=== PATIENT | female | born 2000 | race African-American/Black ===

== ENCOUNTER 2022-07-31 20:40 | Emergency (ER) | payer BC, OTHER, SELFPAY ==
[2022-07-31 20:45] VITALS: BP 123/74; PULSE 97; RESP 18; TEMP 36.9; O2SAT 100; BMI 30.2
--- NOTE | 2022-07-31 20:56 | US_ITS ---
The [address] [address] Patient Name: JAYY NGUYEN MRN: [id number] date: 2000 Sex: F Assigned Patient Location: ED.MAIN Current Patient Location: Accession/Order Number: [id number] Exam Date: 07/31/2022 21:30 Report Date: 07/31/2022 23:01 At the request of: TWYLA GAYTAN Procedure: US OB transvaginal EXAM: US OB transvaginal HISTORY: Vaginal bleeding in COMPARISON: None. TECHNIQUE: Transvaginal ultrasound of the pelvis was performed using Duplex Doppler. FINDINGS: Ultrasound images demonstrate a gravid uterus with a gestational sac with a mean sac diameter of 2.1 cm, indicative of a six-week four-day gestation. Within the gestational sac is a well-defined embryo with a crown rump length measuring 1.2 cm indicative of a 7 week 3 day gestation. Embryonic cardiac activity is noted at a rate of 141 beats per minute. The placenta is not yet visible due to the early gestational age. The amniotic fluid is unable to be assessed due to the early gestational age. The cervix is closed measuring up to 3.5 cm in length. The right ovary measures up to 3.2 x 1.9 x 1.9 cm, and the left ovary measures up to 3.8 x 2.1 x 2.1 cm. There is a complex cystic area within the left ovary most likely representing a corpus luteal cyst of . Blood flow is noted in both ovaries. No free fluid is noted within the cul-de-sac. IMPRESSION: 1. Single live intrauterine gestation at approximately 7 weeks 0 days with a heart rate 141 bpm. Electronically authenticated by: Vernon SILVER Date: 07/31/2022 23:01
--- NOTE | 2022-07-31 21:03 | ED.PREGNANC1 ---
HPI - General Stated complaint: ISSUES LESS THAN 20-WEEKS Time Seen by Provider: 07/31/22 20:53 Source: patient Mode of arrival: walk-in Limitations: no limitations History of Present Illness HPI Narrative: patient is a 22-year-old female A1 who presents to the emergency department for the evaluation of vaginal bleeding in . She states she is approximately nine weeks . She was seen at the [place] emergency department two weeks ago for back pain and was found on a transvaginal ultrasound to have a healthy intrauterine gestation. She states this afternoon she had blood in her underwear and blood with wiping, she was concerned that she may be having a miscarriage that she has a history of complicated and previous still . She has had cramping for several weeks that is not worse or different today. She has not had any fevers or vomiting. She has her 1st appointment with her new OB this week. Related Data Previous Rx's Medication Instructions Recorded metoclopramide HCl 10 mg tablet 10 mg PO Q6H PRN nausea and 07/31/22 (Reglan) vomiting #12 tabs Allergies Allergy/AdvReac Type Severity Reaction Status Date / Time No Known Drug Allergies Allergy Verified 07/31/22 20:45 Review of Systems ROS Constitutional Denies: fever or chills Ears, nose, mouth, and throat Denies: throat pain Respiratory Denies: shortness of breath or cough Gastrointestinal Reports: abdominal pain; Denies: nausea or vomiting Genitourinary Denies: painful urination Integumentary/Breast Denies: rash Neurological Denies: headache PFSH PFSH Social History Smoking status: Current every day smoker Exam Narrative Exam Narrative: Gen.: Awake, alert, in no distress Head: Normocephalic, atraumatic ENT: Moist mucous membranes Respiratory: No respiratory distress Gastrointestinal: Abdomen is soft, nondistended and nontender to palpation Extremities: Moves extremities equally, no injuries noted Psych: Normal mood and affect Neuro: No focal neuro deficit Skin: Warm, dry, intact Constitutional Vital Signs - 24 hr 07/31/22 20:45 Temperature 98.4 F Pulse Rate [Monitor] 97 H Respiratory Rate 18 Blood Pressure [Right Arm] 123/74 H Pulse Oximetry 100 Oxygen Delivery Method Room Air Course Vital Signs Vital signs: Vital Signs Temperature 98.4 F 07/31/22 20:45 Pulse Rate 97 H 07/31/22 20:45 Respiratory Rate 18 07/31/22 20:45 Blood Pressure 123/74 H 07/31/22 20:45 Pulse Oximetry 100 07/31/22 20:45 Oxygen Delivery Method Room Air 07/31/22 20:45 Temperature 98.4 F 07/31/22 20:45 Pulse Rate 97 H 07/31/22 20:45 Respiratory Rate 18 07/31/22 20:45 Blood Pressure 123/74 H 07/31/22 20:45 Pulse Oximetry 100 07/31/22 20:45 Oxygen Delivery Method Room Air 07/31/22 20:45 MDM - OB/Uterine Contractions MDM Narrative Medical decision making narrative: urine specimen, quantitative hCG and ABO/Rh were obtained. Ultrasound is pending at this time. Patient declined Tylenol. She has stable vital signs. No severe bleeding at this time. ultrasound with a single live intrauterine gestation at seven weeks, heart rate 141. Patient with O positive blood type. She is encouraged to follow pelvic rest, follow-up with [facility] [employer] [facility] as scheduled and return to the emergency department if symptoms change or worsen Medical Records Attestation: I reviewed the patient's medical records. Lab Data Attestation: I reviewed the patient's lab results. Labs: Lab Results 07/31/22 07/31/22 07/31/22 Range/Units 19:00 20:56 21:10 HCG, Quant 13191 mIU/mL Urine Color Lt. yellow (YELLOW) Urine Clarity Clear (CLEAR) Urine pH 5.5 (5.0-9.0) Ur Specific [place] 1.025 (1.005-1.025) Urine Protein Negative (NEG/TRACE) mg/dL Urine Glucose (UA) >=1000 A (NEGATIVE) mg/dL Urine Ketones Negative (NEGATIVE) mg/dL Urine Occult Blood Large A (NEGATIVE) Urine Nitrite Negative (NEGATIVE) Urine Bilirubin Negative (NEGATIVE) Urine Urobilinogen 0.2 (0.2-1.0) EU/dL Ur Leukocyte Esterase Negative (NEGATIVE) Urine RBC (0-2) #/HPF Urine WBC (NONE SEEN) #/HPF Ur Squamous Epith Cells (NONE/RARE) #/LPF Urine Crystals (None Seen) #/HPF Urine Bacteria (NONE SEEN) #/HPF Urine Casts (NONE SEEN) #/LPF Urine Mucus (NONE SEEN) Ur Culture Indicated? Blood Type O Positive 07/31/22 Range/Units 21:21 HCG, Quant mIU/mL Urine Color (YELLOW) Urine Clarity (CLEAR) Urine pH (5.0-9.0) Ur Specific [place] (1.005-1.025) Urine Protein (NEG/TRACE) mg/dL Urine Glucose (UA) (NEGATIVE) mg/dL Urine Ketones (NEGATIVE) mg/dL Urine Occult Blood (NEGATIVE) Urine Nitrite (NEGATIVE) Urine Bilirubin (NEGATIVE) Urine Urobilinogen (0.2-1.0) EU/dL Ur Leukocyte Esterase (NEGATIVE) Urine RBC 0-2 (0-2) #/HPF Urine WBC 0-2 A (NONE SEEN) #/HPF Ur Squamous Epith Cells Few A (NONE/RARE) #/LPF Urine Crystals None seen (None Seen) #/HPF Urine Bacteria None seen (NONE SEEN) #/HPF Urine Casts None seen (NONE SEEN) #/LPF Urine Mucus None seen (NONE SEEN) Ur Culture Indicated? No Blood Type Imaging Data US OB <14 weeks: Attestation: I have reviewed the pertinent imaging results. Discharge Plan Discharge Clinical Impression: Vaginal bleeding affecting early , Miscarriage, threatened, early Patient Disposition: Home, Self-Care Time of Disposition Decision: 22:10 Condition: Good Prescriptions / Home Meds: New metoclopramide HCl [Reglan] 10 mg tablet 10 mg PO Q6H PRN (Reason: nausea and vomiting) Qty: 12 0RF Instructions: Threatened Miscarriage (ED) Additional Instructions: Follow up with Dr. Childs as scheduled Stand Alone Forms: Portal Instructions Referrals: [facility] [Primary Care Provider] - 1 week Discharge Date/Time: 07/31/22 22:27
[2022-07-31 21:21] LABS: Bilirubin Urine NEGATIVE (NEGATIVE); Blood Urine LARGE (NEGATIVE); Clarity Urine CLEAR (CLEAR); Color Urine LT. YELLOW (YELLOW); Glucose Urine UA >=1000 mg/dL (NEGATIVE); Ketones Urine NEGATIVE (NEGATIVE); Leukocyte Esterase Urine NEGATIVE (NEGATIVE); Nitrite Urine NEGATIVE (NEGATIVE); Protein Urine NEGATIVE (NEG/TRACE); Specific Gravity Urine 1.025 (1.005-1.025); Urine Microscopic Indicated YES; Urobilinogen Urine 0.2 EU/dL (0.2-1.0); pH Urine 5.5 (5.0-9.0)
[2022-07-31 21:29] LABS: Bacteria Urine NONE SEEN #/HPF (NONE SEEN); Cast Seen? NONE SEEN #/LPF (NONE SEEN); Crystals Seen? None Seen #/HPF (None Seen); Mucus Urine NONE SEEN (NONE SEEN); RBC Urine 0-2 #/HPF (0-2); Squamous Epithelial Cell Urine FEW #/LPF (NONE/RARE); Urine Culture Indicated NO; WBC Urine 0-2 #/HPF (NONE SEEN)
== END 2022-07-31 22:27 | disposition home or self-care (01) ==
PROVIDERS: Physician Assistant; Emergency Provider Internal Medicine
DX: O20.0 Threatened abortion (principal); Z3A.09 9 weeks gestation of pregnancy; O99.331 Smoking (tobacco) complicating pregnancy, first trimester; F17.210 Nicotine dependence, cigarettes, uncomplicated
CPT/HCPCS: 36415; 76817; 81003; 81015; 84702; 86900; 86901; 99285

== ENCOUNTER 2022-08-03 13:04 | Outpatient (OUT) | payer BC, OTHER, SELFPAY ==
--- NOTE | 2022-08-03 13:05 | US_ITS ---
[address] [address] Patient Name: JAYY NGUYEN MRN: [id number] date: 2000 Sex: F Assigned Patient Location: US Current Patient Location: US Accession/Order Number: [id number] Exam Date: 08/03/2022 13:05 Report Date: 08/03/2022 16:49 At the request of: LINDA ALDRIDGE Procedure: US OB transvaginal EXAMINATION: US OB transvaginal HISTORY: MISSED PERIOD COMPARISON: 07/31/2022 FINDINGS: Amezcua intrauterine gestation Gestational sac: 2.26 cm, 6 weeks 6 days CRL: 1.49 cm, 7 weeks 6 days Yolk sac: 4.4 mm Cardiac activity: 159 bpm The uterus is normal in size, contour and echotexture, retroverted, retroflexed The right ovary is normal measuring 3.0 x 1.4 x 1.6 cm. The left ovary is normal measuring 2.4 x 1.4 x 1.7 cm Cervix: Closed, 3.6 cm Clinical age: 8 weeks 5 days Clinical JULIANO: 03/10/2023 Ultrasound age: 7 weeks 6 days Ultrasound JULIANO: 03/16/2023 IMPRESSION: Viable amezcua intrauterine gestation measuring 7 weeks 6 days Electronically authenticated by: SOPHIE DUBOIS Date: 08/03/2022 16:49
== END 2022-08-03 13:05 | disposition home or self-care (01) ==
LOC: US 13:04
PROVIDERS: Visit Provider Obstetrics & Gynecology
DX: O26.91 Pregnancy related conditions, unspecified, first trimester (principal); Z3A.01 Less than 8 weeks gestation of pregnancy
CPT/HCPCS: 76817

== ENCOUNTER 2022-08-19 09:39 | Outpatient (OUT) | payer BC, OTHER, SELFPAY ==
[2022-08-19 10:15] LABS: BOX Test Sent Out y
[2022-08-19 10:16] LABS: Basophils Absolute Auto 0.1 10^3/uL (0.0-0.1); Basophils Percent Auto 0.4 % (0.2-2.0); Eosinophils Absolute Auto 0.2 10^3/uL (0.0-0.7); Eosinophils Percent Auto 1.6 % (0.9-7.0); Hematocrit 32.3 % (36.0-48.0); Hemoglobin 12.1 g/dL (12.0-16.0); Immature Granulocytes Abs Auto 0.04 10^3/uL (0.00-0.03); Immature Granulocytes Pct Auto 0.3 % (0.0-0.5); Lymphocytes Absolute Auto 2.2 10^3/uL (1.2-3.8); Lymphocytes Percent Auto 18.9 % (20.5-60.0); Mean Corpuscular HGB Conc 37.5 g/dL (29.9-35.2); Mean Corpuscular Hemoglobin 28.6 pg (26.7-34.0); Mean Corpuscular Volume 76.4 fL (81.0-99.0); Mean Platelet Volume 11.2 fL (9.5-13.5); Monocytes Absolute Auto 0.7 10^3/uL (0.3-0.8); Monocytes Percent Auto 5.9 % (1.7-12.0); Neutrophils Absolute Auto 8.4 10^3/uL (1.4-6.5); Neutrophils Percent Auto 72.9 % (43.0-75.0); Platelet Count 269 10^3/uL (150-450); Red Blood Count 4.23 10^6/uL (4.20-5.40); Red Cell Distribution Width 13.1 % (11.0-15.0); White Blood Count 11.5 10^3/uL (4.0-11.0)
[2022-08-19 10:32] LABS: Estimated Average Glucose 192 mg/dL; Glycohemoglobin A1C 8.3 % (4.5-6.2)
[2022-08-19 10:43] LABS: Thyroid Stimulating Hormone 0.513 uIU/mL (0.358-3.740)
[2022-08-20 08:08] LABS: Rubella Antibodies, IgG 7.95 index (Immune >0.99)
[2022-08-20 09:07] LABS: HBsAg Screen Negative (Negative); HCV Ab Non Reactive (Non Reactive); HIV Ab/p24 Ag Screen Non Reactive (Non Reactive)
[2022-08-20 12:07] LABS: Rapid Plasma Reagin, Quant Non Reactive (NonRea<1:1)
== END 2022-08-19 09:40 | disposition home or self-care (01) ==
PROVIDERS: Visit Provider Obstetrics & Gynecology
DX: N91.2 Amenorrhea, unspecified (principal)
CPT/HCPCS: 36415; 83036; 84443; 85025; 86592; 86706; 86762; 86803; 86850; 86900; 86901; 87086; 87389

== ENCOUNTER 2022-09-20 20:56 | Outpatient (REF) | payer BC, OTHER, SELFPAY ==
[2022-09-26 16:13] LABS: Age Gdln ACOG Testing Note (.); IGP, rfx Aptima HPV ASCU Note (.)
== END 2022-09-20 20:57 | disposition home or self-care (01) ==
LOC: LAB 20:56
PROVIDERS: Visit Provider Obstetrics & Gynecology
DX: Z01.419 Encounter for gynecological examination (general) (routine) without abnormal findings (principal)
CPT/HCPCS: G0145

== ENCOUNTER 2023-01-05 07:08 | Outpatient (OUT) | payer BC, OTHER, SELFPAY ==
[2023-01-05 11:13] VITALS: BP 111/67; PULSE 93
== END 2023-01-05 11:40 | disposition home or self-care (01) ==
LOC: FBCO 07:20 → FBC 11:10
PROVIDERS: Visit Provider Obstetrics & Gynecology
DX: O24.019 Pre-existing type 1 diabetes mellitus, in pregnancy, unspecified trimester (principal); Z3A.00 Weeks of gestation of pregnancy not specified
CPT/HCPCS: 59025

== ENCOUNTER 2023-01-12 07:15 | Outpatient (OUT) | payer BC, OTHER, SELFPAY ==
[2023-01-12 11:32] VITALS: BP 128/60; PULSE 91
--- NOTE | 2023-01-12 11:45 | PC.NURSE ---
Addendum entered by Carolynn Luu 01/12/23 11:47: Type 2 Diabetes affecting . Pt seeing MFM. Original Note: History of stillborn at 37 weeks.
== END 2023-01-12 12:06 | disposition home or self-care (01) ==
LOC: FBCO 07:20 → FBC 11:29
PROVIDERS: Visit Provider Obstetrics & Gynecology
DX: O24.019 Pre-existing type 1 diabetes mellitus, in pregnancy, unspecified trimester (principal); Z3A.00 Weeks of gestation of pregnancy not specified
CPT/HCPCS: 59025

== ENCOUNTER 2023-01-19 07:03 | Outpatient (OUT) | payer BC, OTHER, SELFPAY ==
[2023-01-19 11:23] VITALS: BP 127/63; PULSE 105
== END 2023-01-19 11:56 | disposition home or self-care (01) ==
LOC: FBCO 07:03 → FBC 11:21
PROVIDERS: Visit Provider Obstetrics & Gynecology
DX: O24.019 Pre-existing type 1 diabetes mellitus, in pregnancy, unspecified trimester (principal); Z3A.00 Weeks of gestation of pregnancy not specified
CPT/HCPCS: 59025

== ENCOUNTER 2023-01-23 07:48 | Outpatient (OUT) | payer BC, OTHER, SELFPAY ==
[2023-01-23 13:17] VITALS: BP 151/70; PULSE 89
--- NOTE | 2023-01-23 13:24 | US_ITS ---
[address] [address] Patient Name: JAYY NGUYEN MRN: [id number] date: 2000 Sex: F Assigned Patient Location: [facility] Current Patient Location: Accession/Order Number: [id number] Exam Date: 01/23/2023 13:29 Report Date: 01/23/2023 14:31 At the request of: LNIDA ALDRIDGE Procedure: US OB BPP w non-stress EXAMINATION: US OB BPP w non-stress HISTORY: GDM insulin dependent COMPARISON: No relevant comparison available. TECHNIQUE: Ultrasound biophysical profile was performed in the radiology department. non-reactive stress testing was performed by nursing staff in the birthing center. FINDINGS: BREATHING MOVEMENTS: 2.0 GROSS BODY MOVEMENTS: 2.0 TONE: 2.0 QUALITATIVE AMNIOTIC FLUID VOLUME: 2.0 PRESENTATION: CEPHALIC HEART RATE: 139.9 bpm H.B./min AMNIOTIC FLUID VOLUME: 10.9 cm cm GESTATIONAL AGE: 32 weeks 4 days CONCLUSION: Total biophysical profile score: 8.0 Electronically authenticated by: SOPHIE DUBOIS Date: 01/23/2023 14:31
[2023-01-23 13:55] VITALS: BP 134/73; PULSE 81
[2023-01-23 14:20] VITALS: BP 125/68; PULSE 83
== END 2023-01-23 14:29 ==
LOC: US 07:48 → FBC 13:16
PROVIDERS: Visit Provider Obstetrics & Gynecology
DX: Z34.93 Encounter for supervision of normal pregnancy, unspecified, third trimester (principal); E10.69 Type 1 diabetes mellitus with other specified complication; Z3A.32 32 weeks gestation of pregnancy
CPT/HCPCS: 76818

== ENCOUNTER 2023-01-31 11:43 | Outpatient (OUT) | payer BC, OTHER, SELFPAY ==
--- NOTE | 2023-01-31 | US_ITS ---
[address] [address] Patient Name: JAYY NGUYEN MRN: [id number] date: 2000 Sex: F Assigned Patient Location: US Current Patient Location: Accession/Order Number: [id number] Exam Date: 01/31/2023 11:40 Report Date: 01/31/2023 21:43 At the request of: LINDA ALDRIDGE Procedure: US OB BPP w non-stress EXAMINATION: US OB BPP w non-stress HISTORY: DIABETES MELLITUS E10.69 COMPARISON: Ultrasound OB biophysical 01/23/2023 TECHNIQUE: Ultrasound biophysical profile was performed in the radiology department. BREATHING MOVEMENTS: 2.0 GROSS BODY MOVEMENTS: 2.0 TONE: 2.0 QUALITATIVE AMNIOTIC FLUID VOLUME: 2.0 PRESENTATION: CEPHALIC HEART RATE: 135.7 bpm bpm. AMNIOTIC FLUID VOLUME: 9.4 cm GESTATIONAL AGE: 33 weeks 5 days CONCLUSION: Total biophysical profile score 8.0. Electronically authenticated by: TEMITOPE HERNANDEZ Date: 01/31/2023 21:43
[2023-01-31 11:59] VITALS: RESP 18
[2023-01-31 12:00] VITALS: BP 118/61; PULSE 85
[2023-01-31 12:01] VITALS: TEMP 35.8; TEMP 35.9
== END 2023-01-31 12:40 | disposition home or self-care (01) ==
LOC: US 11:44 → FBC 11:44
PROVIDERS: Visit Provider Obstetrics & Gynecology
DX: Z34.93 Encounter for supervision of normal pregnancy, unspecified, third trimester (principal); E10.69 Type 1 diabetes mellitus with other specified complication; Z3A.33 33 weeks gestation of pregnancy
CPT/HCPCS: 76818

== ENCOUNTER 2023-02-13 11:15 | Outpatient (OUT) | payer BC, OTHER, SELFPAY ==
--- OUTSIDE RECORDS SUMMARY | 2023-02-06 07:28 | XMS_ITS | CCD ---
Author Name Unknown Address [address] [place] [address] Organization [facility] Care Team Providers Care Network Security Administrator Name Role Phone DR TAMI LAVAREZ Admitting Unavailable ANTONIO, DR GARRETT Attending Unavailable MISC, DR FIELD Primary Care Unavailable ANTONIO, DR GARRETT Consulting Unavailable None, Physician Primary Care Provider MD Derek Baum Admit Provider [phone] MD Derek Baum Attending Provider AMANDA Buck Other Provider Unavailab MD Good [place] Other Provider None Primary Care Unavailable Good [place] Consulting Unavailable Derek Baum Admitting Unavailable Derek Baum Attending Unavailable Tee Buck Consulting Unavailable Services, [facility] Primary Care Provider LINDA ALDRIDGE Attending Unavailable CAITLIN BHATIA Attending Unavailable LINDA ALDRIDGE Attending Unavailable CAITLIN BHATIA Attending Unavailable QUINTON ARITA Attending Unavailable LINDA ALDRIDGE Referring Unavailable SERVICES, [facility] Care Unava ilable SOPHIE HUDSON Admitting Unavailable SOPHIE HUDSON Attending Unavailable SERVICES, [facility] Care Unava ilable CHARO DANIELLE Consulting Unavailable RO TABARES Attending Unavailable RO TABARES Referring Unavailable SERVICES, [facility] Unava ilable LINDA ALDRIDGE Referring Unavailable SERVICES, [facility] Care Unava ilable NGUYEN TILLEY Attending Unavailable LINDA ALDRIDGE Referring Unavailable SERVICES, [facility] Primary Care Unava ilable Medications Current Medications Medication Drug Class(es) Dates Sig (Normalized) Sig (Original) amoxicillin 875 mg / clavulanate 125 mg oral tablet (2 sources) Penicillin-class Antibacterial Start: 02-01-2022 take 1 tablet by mouth twice daily Amoxicillin-Pot Clavulanate Active 1 TAB PO Twice Daily 20 February 01, 2022 12:00am aspirin 81 mg chewable tablet (1 source) Platelet Aggregation Inhibitor, Nonsteroidal Anti-inflammatory Drug Start: 11-03-2022 End: 06-11-2023 aspirin 81 mg chewable tablet Indications: with 21 completed weeks gestation , Type 1 diabetes mellitus in , second trimester , History of delivery affecting Chew 1 tablet (81 mg total) and swallow in the morning for 220 days. 30 tablet 5 11/03/2022 06/11/2023 Active blood-glucose meter (ONETOUCH VERIO REFLECT METER) misc (1 source) Start: 08-30-2022 blood-glucose meter (ONETOUCH VERIO REFLECT METER) misc 1 Device by miscellaneous route in the morning. 1 each 1 08/30/2022 Active Blood-Glucose Sensor (Dexcom G6 Sensor) Device (2 sources) Start: 01-31-2022 Blood-Glucose Sensor (Dexcom G6 Sensor) Device Active EACH OK January 31, 2022 12:00am blood-glucose sensor (DEXCOM G7 SENSOR) device (1 source) Start: 05-31-2022 blood-glucose sensor (DEXCOM G7 SENSOR) device Change sensor every 10 days 3 each 11 05/31/2022 Active Blood-Glucose Transmitter (Dexcom G6 Transmitter) Device (2 sources) Start: 01-31-2022 Blood-Glucose Transmitter (Dexcom G6 Transmitter) Device Active EACH OK January 31, 2022 12:00am doxylamine succinate 25 mg oral tablet (1 source) Start: 09-27-2022 take 1 tablet by mouth once daily as needed for sleep doxylamine (UNISOM) 25 mg tablet Take 1 tablet (25 mg total) by mouth nightly as needed for sleep. 30 tablet 12 09/27/2022 Active glucagon (rdna) 1 mg injection (1 source) Antihypoglycemic Agent Start: 08-30-2022 glucagon HCL (GLUCAGON, HCL, EMERGENCY KIT) 1 mg recon soln Inject 1 mg as directed as needed (severe hypoglycemia or seizure). 2 each 1 08/30/2022 Active sensor 3 ml insulin glargine 100 unt/ml pen injector (1 source) Insulin Analog Start: 01-08-2023 insulin glargine (LANTUS SOLOSTAR U-100 INSULIN) 100 unit/mL (3 mL) insulin pen 27 units s/q am and 20 units s/q bedtime. 2 units to prime. 15 mL 5 01/08/2023 Active insulin lispro 100 unt/ml injectable solution (2 sources) Insulin Analog Start: 02-01-2022 Insulin Lispro (Humalog U-100 Insulin) 100 unit/mL Solution Active 0 UNITS SC As Directed February 01, 2022 12:00am Uses Humalog in Omnipod pump as directed w/ carb counting. insulin lispro (HumaLOG) 100 unit/mL insulin pen (1 source) Start: 01-23-2023 inject 2 [IU] by subcutaneous injection at breakfast insulin lispro (HumaLOG) 100 unit/mL insulin pen Indications: Pre-existing type 1 diabetes mellitus during in second trimester Inject 22 units subcutaneously with breakfast, 26 units subcutaneously with lunch and 32 units subcutaneously at dinnertime. 2 units to prime. 15 mL 12 01/23/2023 Active metoclopramide 10 mg oral tablet (1 source) Dopamine-2 Receptor Antagonist Start: 10-02-2022 metoclopramide (REGLAN) 10 mg tablet Indications: Type 1 diabetes mellitus with hypoglycemia and without coma ([facility]) Take 1 tablet (10 mg total) by mouth 3 (three) times a day. Three times a day before meals 30 tablet 2 10/02/2022 Active PNV 19-IRON PS,MECP-NARVB-HUZ ORAL (1 source) take 1 tablet by mouth once daily PNV 19-IRON PS,CGUS-ZCKTR-ZGX ORAL Take 1 tablet by mouth Daily at 0700. 0 Active pyridoxine hydrochloride 25 mg oral tablet (1 source) Start: 09-27-2022 take 1 tablet by mouth in the morning pyridoxine, vitamin B6, (B-6) 25 mg tablet Take 1 tablet (25 mg total) by mouth in the morning. 30 tablet 0 09/27/2022 Active Problems Active Problems Problem Classification Problem Date Documented Da te Episodic/Chronic Asthma (2 sources) Mild intermittent asthma; Translations: [Mild intermittent asthma, uncomplicated] Onset: 8 10-24-2019 Chronic Coagulation and hemorrhagic disorders (1 source) Chronic idiopathic thrombocytopenic purpura; Translations: [Immune thrombocytopenic purpura] Onset: 9 Resolved: 9 09-04-2018 Chronic Deficiency and other anemia (1 source) Hemoglobin C trait; Translations: [Other hemoglobinopathies] Onset: 9 09-04-2018 Chronic Deficiency and other anemia (1 source) Other hemoglobinopathies; Translations: [Other hemoglobinopathies] Onset: 9 Chronic Diabetes mellitus without complication (7 sources) Type 1 diabetes mellitus; Translations: [Type 1 diabetes mellitus without complications] Onset: 0 Resolved: 3 Chronic Diabetes mellitus without complication (3 sources) Abnormal glucose level; Translations: [Other abnormal glucose] Onset: 2 Resolved: 3 11-14-2022 Episodic Diabetes or abnormal glucose tolerance complicating ; childbirth; or the puerperium (8 sources) Pre-existing type 1 diabetes mellitus in ; Translations: [Pre-existing type 1 diabetes mellitus, in , third trimester] Onset: 8 Resolved: 3 02-01-2023 Chronic Disorders of teeth and jaw (4 sources) Infection of tooth; Translations: [Periapical abscess without sinus] Episodic Other complications of (1 source) Obesity complicating , unspecified trimester; Translations: [Obesity complicating , unspecified trimester] Onset: 3 Chronic Other complications of (1 source) H/O: stillbirth; Translations: [Supervision of with other poor reproductive or obstetric history, third trimester] 02-01-2023 Episodic Other complications of (1 source) Supervision of with other poor reproductive or obstetric history, unspecified trimester; Translations: [Supervision of with other poor reproductive or obstetric history, unspecified trimester] Onset: 3 Episodic Other complications of (1 source) Supervision of with other poor reproductive or obstetric history, third trimester; Translations: [Supervision of with other poor reproductive or obstetric history, third trimester] Onset: 3 Episodic Other endocrine disorders (1 source) Hypoglycemia; Translations: [Hypoglycemia, unspecified] Onset: 3 11-16-2022 Chronic Other gastrointestinal disorders (1 source) Malabsorption - iron; Translations: [Intestinal malabsorption, unspecified] Onset: 1 04-08-2020 Chronic Other screening for suspected conditions (not mental disorders or infectious disease) (4 sources) Encounter for screening for malignant neoplasm of cervix; Translations: [ENC SCREENING MALIG NEOPLASM CERV] Onset: 2 Episodic Previous (1 source) Maternal care for unspecified type scar from previous delivery; Translations: [Maternal care for unspecified type scar from previous delivery] Onset: 3 Episodic Residual codes; unclassified (1 source) 33 weeks gestation of ; Translations: [33 weeks gestation of ] Onset: 3 Episodic Unclassified (1 source) Type 1 DM Onset: 3 Past or Other Problems Problem Classification Problem Date Documented Da te Episodic/Chronic Acute bronchitis (1 source) Acute bronchitis; Translations: [Acute bronchitis, unspecified] Onset: 02-10-2021 02-10-2021 Episodic Deficiency and other anemia (1 source) Iron deficiency anemia; Translations: [Iron deficiency anemia, unspecified] Onset: 04-08-2020 04-08-2020 Episodic Diabetes mellitus with complications (6 sources) Diabetic ketoacidosis; Translations: [Type 2 diabetes mellitus with ketoacidosis without coma] Onset: 02-10-2020 Resolved: 03-24-2021 Chronic Mood disorders (1 source) Mood disorders Onset: 01-30-2023 01-30-2023 Nausea and vomiting (1 source) Nausea and vomiting; Translations: [Nausea with vomiting, unspecified] Onset: 02-10-2021 02-10-2021 Episodic Other complications of ; puerperium affecting management of mother (1 source) Suspected disorder; Translations: [Maternal care for other (suspected) abnormality and damage, not applicable or unspecified] Onset: 08-21-2018 Resolved: 10-10-2019 10-10-2019 Episodic Other complications of (1 source) Maternal obesity complicating , childbirth and the puerperium, antepartum; Translations: [Obesity complicating , third trimester] Onset: 03-11-2018 Resolved: 04-28-2020 04-28-2020 Chronic Other complications of (1 source) Anemia of ; Translations: [Anemia complicating , third trimester] Onset: 04-07-2020 Resolved: 04-28-2020 04-24-2022 Chronic Other complications of (3 sources) High risk ; Translations: [Supervision of high risk , unspecified, third trimester] Onset: 09-04-2018 Resolved: 06-02-2020 10-10-2019 Episodic Other complications of (1 source) Hyperemesis gravidarum; Translations: [Vomiting of , unspecified] Onset: 10-10-2019 Resolved: 04-28-2020 04-28-2020 Episodic Other complications of (1 source) pericardial effusion; Translations: [Maternal care for other specified problems, unspecified trimester, not applicable or unspecified] Onset: 01-06-2020 Resolved: 04-28-2020 04-28-2020 Episodic Other complications of (1 source) Reduced movement; Translations: [Decreased movements, unspecified trimester, not applicable or unspecified] Onset: 04-16-2020 Resolved: 04-28-2020 04-28-2020 Episodic Other complications of (1 source) Abnormal findings on screening of mother; Translations: [Other abnormal findings on screening of mother] Onset: 04-19-2020 Resolved: 04-28-2020 04-28-2020 Episodic Residual codes; unclassified (1 source) Gestation period, 12 weeks; Translations: [12 weeks gestation of ] Onset: 08-30-2022 08-30-2022 Episodic Unclassified (1 source) Onset: 12-29-2019 12-29-2019 Viral infection (1 source) Disease due to Rhinovirus; Translations: [Other viral infections of unspecified site] Onset: 08-21-2017 Resolved: 09-03-2018 09-03-2018 Episodic Results Test Name Value Interpretation Reference Range Facility Glucose Glucometer (BldC) [M ass/Vol]on 02-06-2023 Glucose [Mass/Vol] 220 mg/dL High 65-99 [facility] Glucose [Mass/Vol] 94 mg/dL Normal 65-99 [facility] Glucose [Mass/Vol] 47 mg/dL Critically low 65-99 [facility] Glucose [Mass/Vol] 39 mg/dL Critically low 65-99 [facility] Glucose Glucometer (BldC) [M ass/Vol]on 02-05-2023 Glucose [Mass/Vol] 155 mg/dL High 65-99 [facility] Glucose [Mass/Vol] 103 mg/dL High 65-99 [facility] Glucose [Mass/Vol] 84 mg/dL Normal 65-99 [facility] Glucose [Mass/Vol] 92 mg/dL Normal 65-99 [facility] Glucose [Mass/Vol] 61 mg/dL Low 65-99 [facility] Glucose [Mass/Vol] 50 mg/dL Critically low 65- [facility] Glucose Glucometer (BldC) [M ass/Vol]on 02-04-2023 Glucose [Mass/Vol] 103 mg/dL High 65-99 [facility] Glucose [Mass/Vol] 125 mg/dL High 65- [facility] Glucose [Mass/Vol] 112 mg/dL High 65- [facility] Glucose [Mass/Vol] 91 mg/dL Normal 65- [facility] Glucose [Mass/Vol] 71 mg/dL Normal 65-99 [facility] Glucose Glucometer (BldC) [M ass/Vol]on 02-03-2023 Glucose [Mass/Vol] 159 mg/dL High 65-99 [facility] Glucose [Mass/Vol] 115 mg/dL High 65-99 [facility] Glucose [Mass/Vol] 105 mg/dL High 65-99 [facility] Glucose Glucometer (BldC) [M ass/Vol]on 02-02-2023 Glucose [Mass/Vol] 140 mg/dL High 65-99 [facility] Glucose [Mass/Vol] 125 mg/dL High 65-99 [facility] Glucose [Mass/Vol] 135 mg/dL High 65-99 [facility] Glucose [Mass/Vol] 107 mg/dL High 65-99 [facility] Glucose [Mass/Vol] 145 mg/dL High 65-99 [facility] Glucose [Mass/Vol] 188 mg/dL High 65-99 [facility] POTASSIUMon 02-02-2023 Potassium [Moles/Vol] 4.0 mmol/L Normal 3.5-5.0 [facility] Comment on above: Performed By: #### 2 823-3 ####[facility] ([id number])[address], [place] [address] Potassium [Moles/Vol] 3.6 mmol/L Normal 3.5-5.0 [facility] Comment on above: Performed By: #### 2 823-3 #### [facility] ([id number]) [address], [address] [place] [address] Beta hydroxybutyrate [Moles/ Vol]on 02-01-2023 BetaHydroxybutyrate 0.80 mmol/L High 0.02-0.27 [facility] Comment on above: Performed By: #### 6 873-4, CMP, CBCA #### [facility] ([id number]) [address], [address] [place] [address] CBC AND AUTO DIFFon 02-02-20 ABSOLUTE BASOPHIL 0.0 X10E9/L Normal 0.0-0.2 [facility] Comment on above: Performed By: #### 6 873-4, CMP, CBCA #### [facility] ([id number]) [address], [address] [place] [address] ABSOLUTE NEUTROPHIL 11.4 X10E9/L High 1.5-6.6 [facility] Comment on above: Performed By: #### 6 873-4, CMP, CBCA #### [facility] ([id number]) [address], [address] [place] [address] Basophils/100 WBC (Bld) 0.2 % Normal [facility] Comment on above: Performed By: #### 6 873-4, CMP, CBCA #### [facility] ([id number]) [address], [address] [place] [address] Eosinophils (Bld) [#/Vol] 0.1 10*3/uL Normal 0.0-0.4 [facility] Comment on above: Performed By: #### 6 873-4, CMP, CBCA #### [facility] ([id number]) [address], [facility] [address] [place] [address] Eosinophils/100 WBC (Bld) 0.4 % Normal [facility] Comment on above: Performed By: #### 6 873-4, CMP, CBCA #### [facility] ([id number]) [address], [facility] [address] [place] [address] Erythrocyte distribution width (RBC) [Ratio] 13.5 % Normal 11.5-15.0 [facility] Comment on above: Performed By: #### 6 873-4, CMP, CBCA #### [facility] ([id number]) [address], [facility] [address] [place] [address] Hematocrit (Bld) [Volume fraction] 33.0 % Low 35-47 [facility] Comment on above: Performed By: #### 6 873-4, CMP, CBCA #### [facility] ([id number]) [address], [facility] [address] [place] [address] Hemoglobin (Bld) [Mass/Vol] 11.5 g/dL Low 11.7-15.5 [facility] Comment on above: Performed By: #### 6 873-4, CMP, CBCA #### [facility] ([id number]) [address], [facility] [address] [place] [address] Lymphocytes (Bld) [#/Vol] 1.2 10*3/uL Normal 1.0-3.5 [facility] Comment on above: Performed By: #### 6 873-4, CMP, CBCA #### [facility] ([id number]) [address], [facility] [address] [place] [address] Lymphocytes/100 WBC (Bld) 8.7 % Normal [facility] Comment on above: Performed By: #### 6 873-4, CMP, CBCA #### [facility] ([id number]) [address], [facility] [address] [place] [address] MCH (RBC) [Entitic mass] 27.6 pg Normal 27-34 [facility] Comment on above: Performed By: #### 6 873-4, CMP, CBCA #### [facility] ([id number]) [address] [address] MCHC (RBC) [Mass/Vol] 34.8 g/dL Normal 32-36 [facility] Comment on above: Performed By: #### 6 873-4, CMP, CBCA #### [facility] ([id number]) [address], [address] [address] MCV (RBC) [Entitic vol] 79 fL Low 80-100 [facility] Comment on above: Performed By: #### 6 873-4, CMP, CBCA #### [facility] ([id number]) [address], [address] [address] Monocytes (Bld) [#/Vol] 0.6 10*3/uL Normal 0-0.9 [facility] Comment on above: Performed By: #### 6 873-4, CMP, CBCA #### [facility] ([id number]) [address] [address] [place] [address] Monocytes/100 WBC (Bld) 4.5 % Normal P [facility] Comment on above: Performed By: #### 6 873-4, CMP, CBCA #### [facility] ([id number]) [address] [address] Neutrophils/100 WBC (Bld) 86.2 % Normal [facility] Comment on above: Performed By: #### 6 873-4, CMP, CBCA #### [facility] ([id number]) [address], [address] [address] Platelet mean volume (Bld) [Entitic vol] 9.4 fL Normal 7-12 [facility] Comment on above: Performed By: #### 6 873-4, CMP, CBCA #### [facility] ([id number]) [address] [address] Platelets (Bld) [#/Vol] 211 10*3/uL Normal 150-450 [facility] Comment on above: Performed By: #### 6 873-4, CMP, CBCA #### [facility] ([id number]) [address] [address] RBC COUNT 4.16 X10E12/L Normal 3.80-5.20 [facility] Comment on above: Performed By: #### 6 873-4, CMP, CBCA #### [facility] ([id number]) [address], [address] [address] WBC (Bld) [#/Vol] 13.2 10*3/uL High 4.0-11.0 [facility] Comment on above: Performed By: #### 6 873-4, CMP, CBCA #### [facility] ([id number]) [address], [address] [address] COMPREHENSIVE METABOLIC PANE [facility] 02-01-2023 Albumin [Mass/Vol] 3.3 g/dL Normal 3.2-5.3 [facility] Comment on above: Performed By: #### 6 873-4, CMP, CBCA #### [facility] ([id number]) [address], [address] [place] [address] ALP [Catalytic activity/Vol] 127 U/L Normal 39-130 [facility] Comment on above: Performed By: #### 6 873-4, CMP, CBCA #### [facility] ([id number]) [address], [address] [place] [address] ALT [Catalytic activity/Vol] 13 U/L Normal 0-31 [facility] Comment on above: Performed By: #### 6 873-4, CMP, CBCA #### [facility] ([id number]) [address], [address] [place] [address] Anion gap [Moles/Vol] 9 mmol/L Normal 5-15 [facility] Comment on above: Performed By: #### 6 873-4, CMP, CBCA #### [facility] ([id number]) [address], [address] [place] [address] AST [Catalytic activity/Vol] 19 U/L Normal 0-41 [facility] Comment on above: Performed By: #### 6 873-4, CMP, CBCA #### [facility] ([id number]) [address], [address] [place] [address] Bilirubin [Mass/Vol] 0.7 mg/dL Normal 0.3-1.2 [facility] Comment on above: Performed By: #### 6 873-4, CMP, CBCA #### [facility] ([id number]) [address], [address] [place] [address] Calcium [Mass/Vol] 8.1 mg/dL Low 8.5-10.5 [facility] Comment on above: Performed By: #### 6 873-4, CMP, CBCA #### [facility] ([id number]) [address], [address] [place] [address] Chloride [Moles/Vol] 103 mmol/L Normal 98-109 [facility] Comment on above: Performed By: #### 6 873-4, CMP, CBCA #### [facility] ([id number]) [address], [facility] [address] [place] [address] CO2 [Moles/Vol] 22 mmol/L Normal 22-32 [facility] Comment on above: Performed By: #### 6 873-4, CMP, CBCA #### [facility] ([id number]) [address], [facility] [address] [place] [address] Creatinine [Mass/Vol] 0.58 mg/dL Normal 0.40-1.00 [facility] Comment on above: Result Comment: METH OD TRACEABLE TO IDMS STANDARD Performed By: #### 6 873-4, CMP, CBCA #### [facility] ([id number]) [address], [facility] [address] [place] [address] eGFR (CKD-EPI) NON-RACE DEPENDENT >90 Normal >59 [facility] Comment on above: Result Comment: Reported eGFR is based on the CKD-EPI 2020 equation that does not use a race coefficient. Performed By: #### 6 873-4, CMP, CBCA #### [facility] ([id number]) [address], [facility] [address] [place] [address] Glucose [Mass/Vol] 158 mg/dL High 65-99 [facility] Comment on above: Performed By: #### 6 873-4, CMP, CBCA #### [facility] ([id number]) [address] [address] [place] [address] Potassium [Moles/Vol] 3.3 mmol/L Low 3.5-5.0 [facility] Comment on above: Performed By: #### 6 873-4, CMP, CBCA #### [facility] ([id number]) [address], [address] [place] [address] Protein [Mass/Vol] 6.2 g/dL Normal 6.0-8.0 [facility] Comment on above: Performed By: #### 6 873-4, CMP, CBCA #### [facility] ([id number]) [address], [address] [place] [address] Sodium [Moles/Vol] 134 mmol/L Normal 134-146 [facility] Comment on above: Performed By: #### 6 873-4, CMP, CBCA #### [facility] ([id number]) [address], [address] [place] [address] Urea nitrogen [Mass/Vol] 9 mg/dL Normal 5-23 [facility] Comment on above: Performed By: #### 6 873-4, CMP, CBCA #### [facility] ([id number]) [address], [address] [place] [address] Glucose Glucometer (BldC) [M ass/Vol]on 02-01-2023 Glucose [Mass/Vol] 153 mg/dL High 65-99 [facility] URINALYSISon 02-01-2023 Bilirubin Ql (U) Negative Normal NEG [facility] BLOOD/HGB Negative Normal NEG [facility] Color (U) YELLOW Normal YELLOW [facility] Glucose Ql (U) 1000 mg/dL Abnormal NEG [facility] Ketones Ql (U) 150 mg/dL Abnormal NEG [facility] Leukocyte esterase Test strip Ql (U) Negative Normal NEG [facility] Comment on above: Result Comment: HIGH CONCENTRATIONS OF GLUCOSE MAY DECREASE THE REACTIVITY OF THE DIPSTICK LEUKOCYTE TEST PAD. MUCOUS PRESENT Abnormal NONE [facility] Nitrite Ql (U) Negative Normal NEG [facility] pH (U) 6.0 [pH] Normal 5.0-8.5 [facility] Protein Ql (U) 30 mg/dL Abnormal NEG [facility] R.B.CELLS 1 /hpf Normal 0-5 [facility] Specific gravity (U) [Rel density] 1.030 Normal 1.003-1.035 [facility] SQUAMOUS EPITHELIUM 2 /hpf Normal 0-5 [facility] TURBIDITY CLEAR Normal CLEAR [facility] Urobilinogen (U) [Mass/Vol] mg/dL Normal <1.1 [facility] W.B.CELLS 4 /hpf Normal 0-5 [facility] Albumin [Mass/volume] in Ser um or Plasmaon 02-01-2022 Albumin [Mass/Vol] 3.5 g/dL 3.5-5.0 [facility] Work Phone: Basic Metabolic,Non-Fastingo n 02-01-2022 Anion gap [Moles/Vol] 7 mmol/L Normal 4-12 [facility] Comment on above: Performed By: #### L 400.0202, L400.2200, L400.4800 #### Main Laboratory ([facility]) [address] [place] [address] Bjorn Washington MD Calcium [Mass/Vol] 8.20 mg/dL Low 8.8-10.5 [facility] Comment on above: Performed By: #### L 400.0202, L400.2200, L400.4800 #### Main Laboratory ([facility]) [address] [place] [address] Bjorn Washington MD Chloride [Moles/Vol] 103 mmol/L Normal 101-111 [facility] Comment on above: Performed By: #### L 400.0202, L400.2200, L400.4800 #### Main Laboratory ([facility]) [address] [place] [address] Bjorn Washington MD CO2 [Moles/Vol] 23 mmol/L Invalid Interpretation Code 21-32 [facility] Comment on above: Result Comment: Delt a: 17 on 02/01/22-316 Performed By: #### L 400.0202, L400.2200, L400.4800 #### Main Laboratory ([facility]) [address] [place] [address] Bjorn Washington MD Creatinine [Mass/Vol] 0.56 mg/dL Low 0.60-1.30 [facility] Comment on above: Performed By: #### L 400.0202, L400.2200, L400.4800 #### Main Laboratory ([facility]) [address] [place] [address] Bjorn Washingtno MD GFR Calculation > 60 Normal [facility] Comment on above: Result Comment: [employer] mau Kidney Disease stages by NKDF Stage eGFR I >90 II 60-89 III 30-59 IV 15-29 V <15 or dialysis AGE(years) AVERAGE GFR 20-29 116 ml/min/1.73 square meters Note:This result is normalized to 1.73 square meter body surface area. Height and weight are not factored. Performed By: #### L 400.0202, L400.2200, L400.4800 #### Main Laboratory ([facility]) [address] [place] [address] Bjorn Washington MD Glucose [Mass/Vol] 224 mg/dL High 70-110 [facility] Comment on above: Performed By: #### L 400.0202, L400.2200, L400.4800 #### Main Laboratory ([facility]) [address] [place] [address] Bjorn Washington MD Potassium [Moles/Vol] 4.0 mmol/L Normal 3.6-5.0 [facility] Comment on above: Performed By: #### L 400.0202, L400.2200, L400.4800 #### Main Laboratory ([facility]) [address] [place] [address] Bjorn Washington MD Sodium [Moles/Vol] 133 mmol/L Low 135-145 [facility] Comment on above: Performed By: #### L 400.0202, L400.2200, L400.4800 #### Main Laboratory ([facility]) [address] [place], [place] [address] Bjorn Washington MD Urea nitrogen [Mass/Vol] 3 mg/dL Low 7-20 [facility] Comment on above: Performed By: #### L 400.0202, L400.2200, L400.4800 #### Main Laboratory ([facility]) [address] [place], [place] [address] Bjorn Washington MD Basophils Auto (Bld) [#/Vol] on 02-01-2022 Basophils (Bld) [#/Vol] 0 /cmm 0-200 [facility] Work Phone: [phone] Basophils/100 WBC Auto (Bld) on 02-01-2022 Basophils/100 WBC (Bld) 0.4 % 0-2 L [facility] Work Phone: [phone] Blood anion gapon 02-01-2022 Anion gap (Bld) [Moles/Vol] 7 mmol/L - [facility] Work Phone: [phone] Blood coagulation panelon Blood coagulation panel 100 /cmm 0-500 L [facility] Work Phone: [phone] Blood hematocrit (volume fra ction)on 02-01-2022 Hematocrit (Bld) [Volume fraction] 35.9 % 35.0-44.0 [facility] Work Phone: [phone] Blood hemoglobin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 01/31/22 AM Labs/Imaging: [Ordered ] Daily Sedation Holiday: [N/A ] SBT Readiness: [ N/A] Head of Bed: [ > 30 degrees] PT/OT: [ N/A ] Case Man/Social Work: [N/A] Spiritual Care/Palliative/Ethi cs: [N/A] Critical issues resolved. Code Status 01/31/22 04:28 Code Status Routine Resuscitation Status: Full Code Code Status Order Placed: Code Status Ordered 01/31/22 at 0428 Discussed Patient's Care With: Nurse, Social Work, Palliative Care and Physician Subjective Current Evaluation: Patient showing favorable progress and Events from previous day reviewed Review of Systems Constitutional: No Symptoms Reported Cardiovascular: No Symptoms Reported Respiratory: No Symptoms Reported Musculoskeletal: No Symptoms Reported Neurological: No Symptoms Reported All other systems: Negative Objective Sitting in bed and talking on phone, states she feels better and less nausea. Vital Signs - 24 hr Intake AND Output Intake Total 500 / 4950 4450 / 4950 60 / 60 Balance 500 / 4950 4450 / 4950 60 / 60 Actual Weight (Kg) 83.2 kg Intake: IV Intake (ml) 4100 / 4100 General Appearance: Positive Alert, Resting Comfortably and Cooperative HEENT: Positive EOMI Skin: Positive Color Normal and Warm, Dry Neck: Positive Normal Inspection Cardiovascular: Positive Regular Rate and Rhythm Left Lung: Throughout: Clear Right Lung: Throughout: Clear Lungs: Positive Good Air Entry Abdomen: Positive Soft Extremities: Positive Activity as expected and Warm and Dry Neurologic: Positive Grossly Intact, CN II-XII Intact and A AND O x3 Psychological: Positive Mood AND Affect Normal Glascow Coma Scale Eye Opening: Spontaneous Best Motor Response: Obeys Commands Best Verbal Response: Oriented and Converses Score: 15 Current Clinical Active Medications Amoxicillin/Clavulan ate Potassium (Amoxicillin AND Pot Clav 875 Mg Tab) 875 mg PO Q12H CARLOS Stop: 02/11/22 05:01 Dextrose (Dextrose 50% 25 Gm/50 Ml Syr) 12.5 gm IV PUSH DIRECTED PRN PRN Reason: Hypoglcyemia per insulin protocol Stop: 05/10/22 17:36 Electrolyte Protocol (Phosphorus Replacement (more content not included)... Normal [facility] RBC Auto (Bld) [#/Vol]on RBC (Bld) [#/Vol] 4.66 mil/cmm 4.00-5.10 [facility] Work Phone: Serum or plasma alanine carpenter otransferase measurement (enzymatic activity/volume)on 02-01-2022 ALT [Catalytic activity/Vol] 8 U/L Low 10-40 [facility] Work Phone: Serum or plasma albumin/glob ulin mass ratioon 02-01-2022 Albumin/Globulin [Mass ratio] 1.3 {ratio} Low 1.5-2.5 [facility] Work Phone: [phone] Serum or plasma alkaline denice sphatase measurement (enzymatic activity/volume)on 02-01-2022 ALP [Catalytic activity/Vol] 74 U/L 39-118 [facility] Work Phone: [phone] Serum or plasma aspartate am inotransferase measurement (enzymatic activity/volume)on 02-01-2022 AST [Catalytic activity/Vol] 9 U/L Low 15-41 [facility] Work Phone: [phone] Serum or plasma calcium ruth ann urement (mass/volume)on 02-01-2022 Calcium [Mass/Vol] 8.20 mg/dL Low 8.8-10.5 [facility] Work Phone: [phone] Serum or plasma carbon dioxi de, total measurement (moles/volume)on 02-01-2022 CO2 [Moles/Vol] 23 mmol/L 21-32 [facility] Work Phone: Comment on above: Delta: 17 on 2-0317 Serum or plasma chloride desirae surement (moles/volume)on 02-01-2022 Chloride [Moles/Vol] 103 mmol/L 101-111 [facility] Work Phone: [phone] Serum or plasma creatinine m easurement (mass/volume)on 02-01-2022 Creatinine [Mass/Vol] 0.56 mg/dL Low 0.60-1.30 [facility] Work Phone: [phone] Serum or plasma glucose ruth ann urement (mass/volume)on 02-01-2022 Glucose [Mass/Vol] 224 mg/dL High 70-110 [facility] Work Phone: [phone] Serum or plasma magnesium me asurement (mass/volume)on 02-01-2022 Magnesium [Mass/Vol] 1.9 mg/dL 1.8-2.5 [facility] Work Phone: Serum or plasma phosphate me asurement (mass/volume)on 02-01-2022 Phosphate [Mass/Vol] 2.3 mg/dL Low 2.4-4.7 [facility] Work Phone: Comment on above: Delta: < 1.0 on 01/06 Serum or plasma potassium me asurement (moles/volume)on 02-01-2022 Potassium [Moles/Vol] 4.0 mmol/L 3.6-5.0 [facility] Work Phone: [phone] Serum or plasma protein ruth ann urement (mass/volume)on 02-01-2022 Protein [Mass/Vol] 6.1 g/dL Low 6.2-8.0 [facility] Work Phone: [phone] Serum or plasma sodium measu rement (moles/volume)on 02-01-2022 Sodium [Moles/Vol] 133 mmol/L Low 135-145 [facility] Work Phone: [phone] Serum or plasma total biliru bin measurement (mass/volume)on 02-01-2022 Bilirubin [Mass/Vol] 0.7 mg/dL 0.2-1.0 [facility] Work Phone: [phone] Serum or plasma urea nitroge n measurement (mass/volume)on 02-01-2022 Urea nitrogen [Mass/Vol] 3 mg/dL Low 7-20 [facility] Work Phone: [phone] WBC Auto (Bld) [#/Vol]on WBC (Bld) [#/Vol] 10.9 th/cmm High 4.4-10.5 [facility] Work Phone: [phone] * Urine urinalysis yeast owen iants panel by computer assisted methodon 01-31-2022 Urinalysis yeast variants panel Computer assisted (U) Present High [facility] Work Phone: [phone] Automated bacteria count in urine sediment (number/area)on 01-31-2022 Bacteria Auto (Urine sed) [#/Area] Trace [facility] Work Phone: [phone] Automated blood hypochromia detectionon 01-31-2022 Hypochromia Auto Ql (Bld) 1+ [facility] Work Phone: Automated erythrocytes count in urine sediment (number/area)on 01-31-2022 RBC Auto (Urine sed) [#/Area] 0-2 /HPF [facility] Work Phone: Automated leukocytes count i n urine sediment (number/area)on 01-31-2022 WBC Auto (Urine sed) [#/Area] 0-5 /HPF [facility] Work Phone: Automated squamous epithelia l cells count in urine sediment (number/area)on 01-31-2022 Epithelial cells.squamous Auto (Urine sed) [#/Area] 11-20 /HPF High [facility] Work Phone: Basic Metabolic Panel,Fastin javi 01-31-2022 Anion gap [Moles/Vol] 8 mmol/L Normal 4-12 [facility] Comment on above: Performed By: #### L 400.0202, L400.2200, L400.4800 #### Main Laboratory ([facility]) [address] [place] [address] Bjorn Washington MD Calcium [Mass/Vol] 8.50 mg/dL Low 8.8-10.5 [facility] Comment on above: Performed By: #### L 400.0202, L400.2200, L400.4800 #### Main Laboratory ([facility]) [address] [place] [address] Bjorn Washington MD Chloride [Moles/Vol] 105 mmol/L Normal 101-111 [facility] Comment on above: Performed By: #### L 400.0202, L400.2200, L400.4800 #### Main Laboratory ([facility]) [address] [place] [address] Bjorn Washington MD CO2 [Moles/Vol] 19 mmol/L Low 21-32 [facility] Comment on above: Performed By: #### L 400.0202, L400.2200, L400.4800 #### Main Laboratory ([facility]) [address] [place] [address] Bjorn Washington MD Creatinine [Mass/Vol] 0.62 mg/dL Normal 0.60-1.30 [facility] Comment on above: Performed By: #### L 400.0202, L400.2200, L400.4800 #### Main Laboratory ([facility]) [address] [place] [address] Bjorn Washington MD GFR Calculation > 60 Normal [facility] Comment on above: Result Comment: [facility] mau Kidney Disease stages by NKDF Stage eGFR I >90 II 60-89 III 30-59 IV 15-29 V <15 or dialysis AGE(years) AVERAGE GFR 20-29 116 ml/min/1.73 square meters Note:This result is normalized to 1.73 square meter body surface area. Height and weight are not factored. Performed By: #### L 400.0202, L400.2200, L400.4800 #### Main Laboratory ([facility]) [address] [place] [address] Bjorn Washington MD Glucose [Mass/Vol] 216 mg/dL High 70-110 [facility] Comment on above: Performed By: #### L 400.0202, L400.2200, L400.4800 #### Main Laboratory ([facility]) [address] [place] [address] Bjorn Washington MD Potassium [Moles/Vol] 3.4 mmol/L Low 3.6-5.0 [facility] Comment on above: Performed By: #### L 400.0202, L400.2200, L400.4800 #### Main Laboratory ([facility]) [address] [place] [address] Bjorn Washington MD Sodium [Moles/Vol] 132 mmol/L Low 135-145 [facility] Comment on above: Performed By: #### L 400.0202, L400.2200, L400.4800 #### Main Laboratory ([facility]) [address] [place] [address] Bjorn Washington MD Urea nitrogen [Mass/Vol] 7 mg/dL Normal 7-20 [facility] Comment on above: Performed By: #### L 400.0202, L400.2200, L400.4800 #### Main Laboratory ([facility]) [address] [place] [address] Bjorn Washington MD Anion gap [Moles/Vol] 8 mmol/L Normal 4-12 [facility] Comment on above: Performed By: #### L 702.1000 #### Main Laboratory ([facility]) [address] [place] [address] Bjorn Washington MD Calcium [Mass/Vol] 8.40 mg/dL Low 8.8-10.5 [facility] Comment on above: Performed By: #### L 702.1000 #### Main Laboratory ([facility]) [address] [place] [address] Bjorn Washington MD Chloride [Moles/Vol] 108 mmol/L Normal 101-111 [facility] Comment on above: Performed By: #### L 702.1000 #### Main Laboratory ([facility]) [address] [place] [address] Bjorn Washington MD CO2 [Moles/Vol] 19 mmol/L Low 21-32 [facility] Comment on above: Result Comment: Delt a: 12 on 01/31/22 Performed By: #### L 702.1000 #### Main Laboratory ([facility]) [address] [place] [address] Bjorn Washington MD Creatinine [Mass/Vol] 0.66 mg/dL Normal 0.60-1.30 [facility] Comment on above: Performed By: #### L 702.1000 #### Main Laboratory ([facility]) [address] [place] [facility] Bjorn Washington MD GFR Calculation > 60 Normal [facility] Comment on above: Result Comment: [employer] [facility] Kidney Disease stages by NKDF Stage eGFR I >90 II 60-89 III 30-59 IV 15-29 V <15 or dialysis AGE(years) AVERAGE GFR 20-29 116 ml/min/1.73 square meters Note:This result is normalized to 1.73 square meter body surface area. Height and weight are not factored. Performed By: #### L 702.1000 #### Main Laboratory ([facility]) [address] [place] [address] Bjorn Washington MD Glucose [Mass/Vol] 179 mg/dL High 70-110 [facility] Comment on above: Performed By: #### L 702.1000 #### Main Laboratory ([facility]) [address] [place] [address] Bjorn Washington MD Potassium [Moles/Vol] 3.6 mmol/L Normal 3.6-5.0 [facility] Comment on above: Performed By: #### L 702.1000 #### Main Laboratory ([facility]) [address] [address] Bjorn Washington MD Sodium [Moles/Vol] 135 mmol/L Normal 135-145 [facility] Comment on above: Performed By: #### L 702.1000 #### Main Laboratory ([facility]) [address] [place] [id number] Bjorn Washington MD Urea nitrogen [Mass/Vol] 8 mg/dL Normal 7-20 [facility] Comment on above: Performed By: #### L 702.1000 #### Main Laboratory ([facility]) [address] [place] [address] Bjorn Washington MD Anion gap [Moles/Vol] 13 mmol/L High 4-12 [facility] Comment on above: Performed By: #### L 400.0202, L400.2200, L400.4800 #### Main Laboratory ([facility]) [address] [place] [address] Bjorn Washington MD Calcium [Mass/Vol] 8.10 mg/dL Low 8.8-10.5 [facility] Comment on above: Performed By: #### L 400.0202, L400.2200, L400.4800 #### Main Laboratory ([facility]) [address] [place] [address] Bjorn Washington MD Chloride [Moles/Vol] 112 mmol/L High 101-111 [facility] Comment on above: Performed By: #### L 400.0202, L400.2200, L400.4800 #### Main Laboratory ([facility]) [address] [place] [address] Bjorn Washington MD CO2 [Moles/Vol] 12 mmol/L Low 21-32 [facility] Comment on above: Performed By: #### L 400.0202, L400.2200, L400.4800 #### Main Laboratory ([facility]) [address] [place] [address] Bjorn Washington MD Creatinine [Mass/Vol] 0.76 mg/dL Normal 0.60-1.30 [facility] Comment on above: Performed By: #### L 400.0202, L400.2200, L400.4800 #### Main Laboratory ([facility]) [address] [place] [address] Bjorn Washingotn MD GFR Calculation > 60 Normal [facility] Comment on above: Result Comment: [employer] [facility] Kidney Disease stages by NKDF Stage eGFR I >90 II 60-89 III 30-59 IV 15-29 V <15 or dialysis AGE(years) AVERAGE GFR 20-29 116 ml/min/1.73 square meters Note:This result is normalized to 1.73 square meter body surface area. Height and weight are not factored. Performed By: #### L 400.0202, L400.2200, L400.4800 #### Main Laboratory ([facility]) [address] [place] [address] Bjorn Washington MD Glucose [Mass/Vol] 175 mg/dL High 70-110 [facility] Comment on above: Performed By: #### L 400.0202, L400.2200, L400.4800 #### Main Laboratory ([facility]) [address] [place] [address] Bjorn Washington MD Potassium [Moles/Vol] 4.5 mmol/L Normal 3.6-5.0 [facility] Comment on above: Performed By: #### L 400.0202, L400.2200, L400.4800 #### Main Laboratory ([facility]) [address] [place] [address] Bjorn Washington MD Sodium [Moles/Vol] 137 mmol/L Normal 135-145 [facility] Comment on above: Performed By: #### L 400.0202, L400.2200, L400.4800 #### Main Laboratory ([facility]) [address] [place] [address] Bjorn Washington MD Urea nitrogen [Mass/Vol] 11 mg/dL Normal 7-20 [facility] Comment on above: Performed By: #### L 400.0202, L400.2200, L400.4800 #### Main Laboratory ([facility]) [address] [place] [address] Bjorn Washington MD Anion gap [Moles/Vol] 17 mmol/L High 4-12 [facility] Comment on above: Performed By: #### L 702.1000 #### Main Laboratory ([facility]) [address] [place] [address] Bjorn Washington MD Calcium [Mass/Vol] 8.40 mg/dL Low 8.8-10.5 [facility] Comment on above: Performed By: #### L 702.1000 #### Main Laboratory ([facility]) [address] [place] [address] Bjorn Washington MD Chloride [Moles/Vol] 111 mmol/L Normal 101-111 [facility] Comment on above: Performed By: #### L [id number] #### Main Laboratory ([facility]) [address] [place] [address] Bjorn Washington MD CO2 [Moles/Vol] 10 mmol/L Low 21-32 [facility] Comment on above: Performed By: #### L [id number] #### Main Laboratory ([facility]) [address] [place] [address] Bjorn Washington MD Creatinine [Mass/Vol] 0.83 mg/dL Normal 0.60-1.30 [facility] Comment on above: Performed By: #### L 702.1000 #### Main Laboratory ([facility]) [address] [place] [address] Bjorn Washington MD GFR Calculation > 60 Normal [facility] Comment on above: Result Comment: [employer] [facility] Kidney Disease stages by NKDF Stage eGFR I >90 II 60-89 III 30-59 IV 15-29 V <15 or dialysis AGE(years) AVERAGE GFR 20-29 116 ml/min/1.73 square meters Note:This result is normalized to 1.73 square meter body surface area. Height and weight are not factored. Performed By: #### L 702.1000 #### Main Laboratory ([facility]) [address] [place] [address] Bjorn Washington MD Glucose [Mass/Vol] 212 mg/dL High 70-110 [facility] Comment on above: Performed By: #### L 702.1000 #### Main Laboratory ([facility]) [address] [place] [address] Bjorn Washington MD Potassium [Moles/Vol] 4.2 mmol/L Normal 3.6-5.0 [facility] Comment on above: Performed By: #### L 702.1000 #### [facility] ([facility] [facility] [address] [place] [address] Bjorn Washington MD Sodium [Moles/Vol] 138 mmol/L Normal 135-145 [facility] Comment on above: Performed By: #### L 702.1000 #### Main Laboratory ([facility]) [address] [place] [address] Bjorn Washington MD Urea nitrogen [Mass/Vol] 12 mg/dL Normal 7-20 [facility] Comment on above: Performed By: #### L 702.1000 #### Main Laboratory ([facility]) [address] [place] [address] Bjorn Washington MD Bilirubin Auto test strip Ql (U)on 01-31-2022 Bilirubin Ql (U) Negative Negative [facility] Work Phone: Blood hemoglobin A1/total he moglobinon 01-31-2022 Hemoglobin A1 (Bld) [Mass fraction] 9.8 % High [facility] Work Phone: Comment on above: Hemoglobin A1c value s greater than or equal to 6.5 percentare diagnostic for diabetes mellitus. Diagnosis should beconfirmed by repeat testing. In diabetic patients, [id number] should be discussed with healthcare provider.Test Performed by:[address] [id number] Director: [place] M.D. Ph.D.; CLIA# [id number] CBC with Differentialon 12-2 Abs Baso Count 100 /cmm Normal 0-200 [facility] Comment on above: Performed By: #### L 702.1000 #### Main Laboratory ([facility]) [address] [place], [place] [address] Bjorn Washington MD Abs Eos Count 0 /cmm Normal 0-500 [facility] Comment on above: Performed By: #### L 702.1000 #### Main Laboratory ([facility]) [address] [place], [place] [address] Bjorn Washington MD Abs Lymph Count 1600 /cmm Normal 6743-6229 [facility] Comment on above: Performed By: #### L 702.1000 #### Main Laboratory ([facility]) [address] [place], [place] [address] Bjorn aWshington MD Abs Dooly Count 1600 /cmm High 0-800 [facility] Comment on above: Performed By: #### L 702.1000 #### Main Laboratory ([facility]) [address] [place], [place] [address] Bjorn Washington MD Abs Neut Count 245[address] /cmm High 6530-3752 [facility] Comment on above: Performed By: #### L 702.1000 #### Main Laboratory ([facility]) [address] [place], [place] [address] Bjorn Washington MD Basophils/100 WBC (Bld) 0.4 % Normal 0-2 L [facility] Comment on above: Performed By: #### L 702.1000 #### Main Laboratory ([facility]) [address] [place], [place] [address] Bjorn Washington MD EOS-Auto Diff 0.1 % Normal 0-6 [facility] Comment on above: Performed By: #### L 702.1000 #### Main Laboratory ([facility]) [address] [place], [place] [address] Bjorn Washington MD Erythrocyte distribution width (RBC) [Ratio] 14.6 % Normal 12.0-16.0 [facility] Comment on above: Performed By: #### L 702.1000 #### Main Laboratory ([facility]) [address] [place], [place] [address] Bjorn Washington MD Hematocrit (Bld) [Volume fraction] 43.8 % Normal 35.0-44.0 [facility] Comment on above: Performed By: #### L 702.1000 #### Main Laboratory ([facility]) [address] [place], [place] [address] Bjorn Washington MD Hemoglobin (Bld) [Mass/Vol] 14.8 g/dL Normal 12.0-15.0 [facility] Comment on above: Performed By: #### L 702.1000 #### Main Laboratory ([facility]) [address] [place] [address] Bjorn Washington MD Hypochromasia 1+ Normal [facility] Comment on above: Performed By: #### L 702.1000 #### Main Laboratory ([facility]) [address] [place] [address] Bjorn Washington MD Lymphocytes/100 WBC (Bld) 6.1 % Low 15-45 [facility] Comment on above: Performed By: #### L 702.1000 #### Main Laboratory ([facility]) [address] [place] [address] Bjorn Washington MD MCH (RBC) [Entitic mass] 26.7 pg Low 27.5-33.0 [facility] Comment on above: Performed By: #### L 702.1000 #### Main Laboratory ([facility]) [address] [place], [place] [address] Bjorn Washington MD MCHC (RBC) [Mass/Vol] 33.9 g/dL Normal 33.0-36.0 [facility] Comment on above: Performed By: #### L 702.1000 #### Main Laboratory ([facility]) [address] [place], [place] [address] Bjorn Washington MD MCV 79.0 CU ANDREW Low 80-97 [facility] Comment on above: Performed By: #### L 702.1000 #### Main Laboratory ([facility]) [address] [place], [place] [address] Bjorn Washington MD Dooly- Auto Diff 6.1 % Normal 2-10 [facility] Comment on above: Performed By: #### L 702.1000 #### Main Laboratory ([facility]) [address] [place] [address] Bjorn Washington MD Neut-Auto Diff 87.3 % High 40-70 [facility] Comment on above: Performed By: #### L 702.1000 #### Main Laboratory ([facility]) [address] [place] [address] Bjorn Washington MD NRBC-Auto 0.0 /100 WBC Normal <1 [facility] Comment on above: Performed By: #### L 702.1000 #### Main Laboratory ([facility]) [address] [place] [address] Bjorn Washington MD Platelet Count 309 th/cmm Normal 150-400 [facility] Comment on above: Performed By: #### L 702.1000 #### Main Laboratory ([facility]) [address] [place] [address] Bjorn Washington MD RBC 5.55 mil/cmm High 4.00-5.10 [facility] Comment on above: Performed By: #### L 702.1000 #### Main Laboratory ([facility]) [address] [place], [place] [address] Bjorn Washington MD WBC 25.6 th/cmm High 4.4-10.5 [facility] Comment on above: Performed By: #### L 702.1000 #### Main Laboratory ([facility]) [address] [place], [place] [address] Sinuses With Contraston 1 04-03-2021 CT Sinuses With Contrast [facility] Radiology Department Patient: JAYY NGUYEN. : 2000 Sex: Susi Beauchamp [id number] Location: [facility] [phone] Unit #: [id number] Ordering Phys: Good Calderon MD Exam Date: 01/31/22 Exam: CT CT Sinuses With Contrast Result: See Report STUDY: CT PARANASAL SINUSES WITH CONTRAST REASON FOR EXAM: Female, 21 years old. left facial pain/tenderness. swelling of palate./ SWELLING ABOVE THE LEFT PALATE X 4 DAYS/ NO OTHER COMPLAINTS RADIATION DOSAGE (If Supplied By Facility): CTDIvol = ( ) mGy, DLP = ( ) mGycm TECHNIQUE: The patient was scanned in a multi-detector CT scanner. High resolution transaxial imaging was performed following the intravenous administration of IV Omnipaque 300 75ML. Sagittal and coronal images were reconstructed. Individualized dose optimization techniques were used for this CT. COMPARISON: None. FINDINGS: FRONTAL SINUSES: Normal development and aeration of the bilateral frontal sinuses without mucosal inflammatory disease. ETHMOIDAL SINUSES: Normal development and aeration of the bilateral ethmoidal air cells without mucosal inflammatory disease. MAXILLARY SINUSES: Mucosal thickening in the floor the left x-ray sinus consistent with chronic sinusitis. SPHENOIDAL SINUSES: Normal aeration of the bilateral sphenoid sinuses and there is no mucosal inflammatory disease. OMU: Normal aeration of the bilateral maxillary infundibulum. Normal uncinate process, ethmoid bulla, and hiatus semilunaris. MIDDLE TURBINATES: Bilateral jonny bullosa. INFERIOR TURBINATES: Normal bilateral inferior turbinates. NASAL SEPTUM: Normal midline nasal septum and there is no nasal septal mass lesions, deviation or spur. Normal anterior cranial fossa, harry baldomero and cribriform plate. Normal bilateral orbital contents. Normal nasopharynx without adenoidal pad hypertrophy, or a posterior nasopharyngeal retention cyst. There is no demonstrated enhancing soft tissue or osseous abnormality. IMPRESSION: 1. Chronic left maxillary sinusitis. 2. Patent ostiomeatal units bilaterally. 3. Bilateral jonny bullosa. Electronically Signed: David Lynn MD at 18:57 EST , cc: Good Calderon MD; None Dictated by: David Lynn MD on 01/31/221856 Transcribed by: David Lynn MD on 01/31/221856 Report Signed by: Shane KNAPP,David Turpin on 01/31/221856 Normal [facility] Complete urinalysis with ref torito to cultureon 01-31-2022 Urinalysis complete W Reflex Culture panel (U) No [facility] Work Phone: Comment on above: Culture not done per lab protocol Consultation - ENTon 022 Consultation - ENT [facility] Medical Records Patient: JAYY NGUYEN [address] : 2000 [place] [address] Location: ICU [phone] Unit #: [id number] Consultation - ENT Good Calderon MD Service Date: 01/31/22 History of Present Illness History of Present Illness: JAYY NGUYEN is a 21 yr old F who was admitted on 01/31/22 for DKA/SEPSIS. Apparently she has a long history of dental infections. She has been trying for months to get her dental situation taken care of but has had some insurance issues. Apparently she was told that she needs multiple root canals. Involving the left maxillary teeth. Recently had increasing pain related to these teeth. She also has noticed some swelling involving the hard palate left of midline. That coincided with his dental pain. Apparently this happened months ago and was treated with antibiotics and it resolved. She subsequently was admitted to the hospital for diabetic ketoacidosis. She has been started on Unasyn. Overall feels slightly better but still complaining of some dental pain and discomfort. As well as discomfort over the left side of the face primarily over the left maxillary sinus. Denies any nasal drainage. No vision changes. Allergies/Adverse Reactions No Known Drug Allergies Allergy (Verified 01/31/22 04:21) Home Medications blood-glucose sensor (Dexcom G6 Sensor device) 01/31/22 [Confirmed 01/31/22] blood-glucose transmitter (Dexcom G6 Transmitter device) 01/31/22 [Confirmed 01/31/22] Past Medical History Medical History Dental infection Diabetes type I Past Surgical History Surgical History History of Social History Caffeine Amount: None Street Drugs: Marijuana Smoking Status: Never smoked Smoking Amount: < 1 pack per day Family History Other No pertinent family history Review of Systems Constitutional: Negative Eyes: Negative ENT: Oral Pain Respiratory: Negative Cardiovascular: Negative Gastrointestinal: Negative Genitourinary: Negative Musculoskeletal: Negative Skin: Negative Neurological: Negative Physical Exam Physical Exam: She is sitting in bed in no acute distress. No difficulty breathing. Voice normal. No lymphadenopathy. Salivary glands are normal. There is some swelling of the hard palate on the left side left of midline. There is slight fluctuance. There is some discomfort with palpation around the left maxillary teeth specifically the first molar. There is significant tenderness when I palpate over the left maxillary and ethmoid region. The rest exam is unremarkable Patient Data: Last Vital Signs Temp Pulse Resp BP Pulse Ox 98.8 F 89 14 118/64 100 01/31/22 12:45 01/31/22 15:08 01/31/22 15:08 01/31/22 15:08 01/31/22 15:08 Intake and Output Intake Total 60 Balance 60 Admitting (IV Pump) Weight 78.7 kg Actual Weight (Kg) 78.7 kg Laboratory Data: Laboratory Last Values WBC 25.6 th/cmm (4.4-10.5) H 01/31/22 05:30 Assessment/Problem (1) Dental infection: Status: Acute Plan: Dental infection involving the left upper teeth. However there is some swelling and slight fluctuance of the hard palate with some facial discomfort on the left side. So I am concerned that this may have extended into the sinuses. CT of the sinus with contrast ordered. Continue with antibiotics at this time. cc: Good Calderon MD; None Dictated by: Good Calderon MD on 01/31/22 2952 Entered by: Good Calderon MD on 01/31/221732 Report Signed by: Good Calderon MD on 01/31/221737 < > Report Signed by: on Normal [facility] HCO3 (BldV) [Moles/Vol]on HCO3 (Bld) [Moles/Vol] 10.4 mmol/L Low 23.0-28.0 L [facility] Work Phone: Hemoglobin A1Con 01-31-2022 Hgb A1C Normal 4.4-6.4 [facility] Comment on above: Result Comment: Vari ant detected - Specimen sent to [facility] for A1c testing. Performed By: #### L 400.0202, L400.2200, L400.7970 #### Main Laboratory ([facility]) [address] [place] [address] Bjorn Washington MD Hemoglobin [Mass/volume] in Urine by Automated test stripon 01-31-2022 Hemoglobin Auto test strip (U) [Mass/Vol] Negative Negative [facility] Work Phone: Ionized Calciumon 01-31-2022 Ionized Calcium 1.20 mmol/L Normal 1.15-1.29 [facility] Comment on above: Performed By: #### L 702.1000 #### Main Laboratory ([facility]) [address] [place] [address] Bjorn Washington MD Ketones Auto test strip (U) [Mass/Vol]on 01-31-2022 Ketones (U) [Mass/Vol] 10 mg/dL High Negative [facility] Work Phone: Magnesiumon 01-31-2022 Magnesium [Mass/Vol] 1.8 mg/dL Normal 1.8-2.5 [facility] Comment on above: Performed By: #### L 702.1000 #### Main Laboratory ([facility]) [address] [place] [address] Bjorn Washington MD Meter Glucoseon 01-31-2022 Glucose [Mass/Vol] 173 mg/dL High 70-110 [facility] Comment on above: Performed By: #### L 702.1000 #### Main Laboratory ([facility]) [address] [place] [address] Bjorn Washington MD Glucose [Mass/Vol] 146 mg/dL High 70-110 [facility] Comment on above: Performed By: #### L 400.0202, L400.2200, L400.4800 #### Main Laboratory ([facility]) [address] [place] [address] Bjorn Washington MD Glucose [Mass/Vol] 136 mg/dL High 70-110 [facility] Comment on above: Performed By: #### L 400.0202, L400.2200, L400.4800 #### Main Laboratory ([facility]) [address] [place] [address] Bjorn Washington MD Glucose [Mass/Vol] 163 mg/dL High 70-110 [facility] Comment on above: Performed By: #### L 702.1000 #### Main Laboratory ([facility]) [address] [place] [address] Bjorn Washington MD Glucose [Mass/Vol] 188 mg/dL High 70-110 [facility] Comment on above: Performed By: #### L 702.1000 #### Main Laboratory ([facility]) [address] [place] [address] Bjorn Washington MD Glucose [Mass/Vol] 170 mg/dL High 70-110 [facility] Comment on above: Performed By: #### L 702.1000 #### Main Laboratory ([facility]) [address] [place] [address] Bjorn Washington MD Glucose [Mass/Vol] 165 mg/dL High 70-110 [facility] Comment on above: Performed By: #### L 702.1000 #### Main Laboratory ([facility]) [address] [place] [address] Bjorn Wasihngton MD Glucose [Mass/Vol] 164 mg/dL High 70-110 [facility] Comment on above: Performed By: #### L 702.1000 #### Main Laboratory ([facility]) [address] [place] [address] Bjorn Washington MD Glucose [Mass/Vol] 196 mg/dL High 70-110 [facility] Comment on above: Performed By: #### L 400.0202, L400.2200, L400.4800 #### Main Laboratory ([facility]) [address] [place] [address] Bjorn Washington MD Glucose [Mass/Vol] 185 mg/dL High 70-110 [facility] Comment on above: Performed By: #### L 400.0202, L400.2200, L400.4800 #### Main Laboratory ([facility]) [address] [place] [address] Bjorn Washington MD Glucose [Mass/Vol] 195 mg/dL High 70-110 [facility] Comment on above: Performed By: #### L 702.1000 #### Main Laboratory ([facility]) [address] [place] [address] Bjorn Washington MD Glucose [Mass/Vol] 191 mg/dL High 70-110 [facility] Comment on above: Performed By: #### L 702.1000 #### Main Laboratory ([facility]) [address] [place] [address] Bjorn Washington MD Glucose [Mass/Vol] 228 mg/dL High 70-110 [facility] Comment on above: Performed By: #### L 702.1000 #### Main Laboratory ([facility]) [address] [place] [address] Bjorn Washington MD No Panel Informationon 01-31 Blood Gas Notified By Yes [facility] Work Phone: Blood Gas Patient Equipment Room Air [facility] Work Phone: Venous Blood pH 7.22 Low 7.31-7.41 [facility] Work Phone: Hemoglobin A1c See comment 4.4-6.4 [facility] Work Phone: [phone] Comment on above: Variant detected - S pecimen sent to [facility] for A1c testing. Ionized Calcium 1.20 mmol/L 1.15-1.29 [facility] Work Phone: Osmolality of Serum or Plasm aon 01-31-2022 Osmolality [Osmolality] 299 mOsm 270-300 L [facility] Work Phone: Osmolality, Serumon 02-01-20 Osmolality, Serum 299 mOsm Normal 270-300 [facility] Comment on above: Performed By: #### L 400.0202, L400.2200, L400.4800 #### Main Laboratory ([facility]) [address] [place] [address] Bjorn Washington MD Osmolality, Serum 297 mOsm Normal 270-300 [facility] Comment on above: Performed By: #### L 702.1000 #### Main Laboratory ([facility]) [address] [place] [address] Bjorn Washington MD Osmolality, Serum 298 mOsm Normal 270-300 [facility] Comment on above: Performed By: #### L 400.0202, L400.2200, L400.4800 #### Main Laboratory ([facility]) [address] [place] [address] Bjorn Washington MD Osmolality, Serum 309 mOsm High 270-300 [facility] Comment on above: Performed By: #### L 702.1000 #### Main Laboratory ([facility]) [address] [place] [address] Bjorn Washington MD Other useful informationon 1 04-03-2021 Other useful information Vein [facility] Work Phone: Phosphoruson 01-31-2022 Phosphate [Mass/Vol] 1.3 mg/dL Low 2.4-4.7 [facility] Comment on above: Performed By: #### L 400.0202, L400.2200, L400.4800 #### Main Laboratory ([facility]) [address] [address] Bjorn Washington MD Phosphate [Mass/Vol] 1.5 mg/dL Low 2.4-4.7 [facility] Comment on above: Result Comment: Delt a: 2.1 on 01/31/22 Performed By: #### L 702.1000 #### Main Laboratory ([facility]) [address] [place] [address] Bjorn Washington MD Phosphate [Mass/Vol] 2.1 mg/dL Low 2.4-4.7 [facility] Comment on above: Performed By: #### L 400.0202, L400.2200, L400.4800 #### Main Laboratory ([facility]) [address] [place] [address] Bjorn Washington MD Phosphate [Mass/Vol] 2.3 mg/dL Low 2.4-4.7 [facility] Comment on above: Performed By: #### L 702.1000 #### Main Laboratory ([facility]) [address] [place] [address] Bjorn Washington MD Protein Auto test strip (U) [Mass/Vol]on 01-31-2022 Protein (U) [Mass/Vol] 10 mg/dL Negative [facility] Work Phone: Serum or plasma fasting gluc ose measurement (mass/volume)on 01-31-2022 Glucose post fast [Mass/Vol] 216 mg/dL High 70-110 [facility] Work Phone: Specific gravity Auto test s trip (U) [Rel density]on 01-31-2022 Specific gravity (U) [Rel density] >=1.030 1.000-1.035 [facility] Work Phone: Urinalysis w Micro Rflx Cult on 01-31-2022 Bacteria Trace [facility] Comment on above: Order Comment: Urine Source Urine, Clean Catch Performed By: #### L 400.0202, L400.2200, L400.4800 #### Main Laboratory ([facility]) [address] [place], [place] [address] Bjorn Washington MD Epi,Squamous 11-20 High [facility] Comment on above: Order Comment: Urine Source Urine, Clean Catch Performed By: #### L 400.0202, L400.2200, L400.4800 #### Main Laboratory ([facility]) [address] [place], [place] [address] Bjorn Washington MD Mucous Present Normal [facility] Comment on above: Order Comment: Urine Source Urine, Clean Catch Performed By: #### L 400.0202, L400.2200, L400.4800 #### Main Laboratory ([facility]) [address] [place], [place] [address] Bjorn Washington MD RBC 0-2 [facility] Comment on above: Order Comment: Urine Source Urine, Clean Catch Performed By: #### L 400.0202, L400.2200, L400.4800 #### Main Laboratory ([facility]) [address] [place], [place] [address] Bjorn Washington MD UA Reflex Culture No [facility] Comment on above: Order Comment: Urine Source Urine, Clean Catch Result Comment: Cult ure not done per lab protocol Performed By: #### L 400.0202, L400.2200, L400.4800 #### Main Laboratory ([facility]) [address] [place], [place] [address] Bjorn Washington MD WBC 0-5 [facility] Comment on above: Order Comment: Urine Source Urine, Clean Catch Performed By: #### L 400.0202, L400.2200, L400.4800 #### Main Laboratory ([facility]) [address] [place] [address] Bjorn Washington MD Yeast Present High [facility] Comment on above: Order Comment: Urine Source Urine, Clean Catch Performed By: #### L 400.0202, L400.2200, L400.4800 #### Main Laboratory ([facility]) [address] [place] [address] Bjorn Washington MD Appearance (U) Clear Normal [facility] Comment on above: Order Comment: Urine Source Urine, Clean Catch Performed By: #### L 400.0202, L400.2200, L400.4800 #### Main Laboratory ([facility]) [address] [place] [address] Bjorn Washington MD Bilirubin Ql (U) Negative Normal Negative [facility] Comment on above: Order Comment: Urine Source Urine, Clean Catch Performed By: #### L 400.0202, L400.2200, L400.4800 #### Main Laboratory ([facility]) [address] [place] [address] Bjorn Washington MD Color (U) Yellow Normal [facility] Comment on above: Order Comment: Urine Source Urine, Clean Catch Performed By: #### L 400.0202, L400.2200, L400.4800 #### Main Laboratory ([facility]) [address] [place] [address] Bjorn Washington MD Glucose Ql (U) Negative Normal Negative [facility] Comment on above: Order Comment: Urine Source Urine, Clean Catch Performed By: #### L 400.0202, L400.2200, L400.4800 #### Main Laboratory ([facility]) [address] [place] [address] Bjorn Washington MD Ketones Ql (U) 10 mg/dL High Negative [facility] Comment on above: Order Comment: Urine Source Urine, Clean Catch Performed By: #### L 400.0202, L400.2200, L400.4800 #### Main Laboratory ([facility]) [address] [place] [address] Bjorn Washington MD Leukocytes Negative Normal Negative [facility] Comment on above: Order Comment: Urine Source Urine, Clean Catch Performed By: #### L 400.0202, L400.2200, L400.4800 #### Main Laboratory ([facility]) [address] [place], [facility] Bjorn Washington MD Nitrite Ql (U) Negative Normal Negative [facility] Comment on above: Order Comment: Urine Source Urine, Clean Catch Performed By: #### L 400.0202, L400.2200, L400.4800 #### Main Laboratory ([facility]) [address] [place], [place] [address] Bjorn Washington MD pH (U) 6.0 [pH] Normal 5.0-8.0 [facility] Comment on above: Order Comment: Urine Source Urine, Clean Catch Performed By: #### L 400.0202, L400.2200, L400.4800 #### Main Laboratory ([facility]) [address] [place], [facility] Bjorn Washington MD Protein Ql (U) 10 mg/dL Normal Negative [facility] Comment on above: Order Comment: Urine Source Urine, Clean Catch Performed By: #### L 400.0202, L400.2200, L400.4800 #### Main Laboratory ([facility]) [address] [place], [facility] Bjorn Washington MD Specific gravity (U) [Rel density] >=1.030 Normal 1.000-1.035 [facility] Comment on above: Order Comment: Urine Source Urine, Clean Catch Performed By: #### L 400.0202, L400.2200, L400.4800 #### Main Laboratory ([facility]) [address] [place] [address] Bjorn Washington MD Urobilinogen Normal Normal 0.2-1.0 [facility] Comment on above: Order Comment: Urine Source Urine, Clean Catch Performed By: #### L 400.0202, L400.2200, L400.4800 #### Main Laboratory ([facility]) [address] [place] [id number] Bjorn Washington MD Urine appearance determinati onon 01-31-2022 Appearance (U) Clear [facility] Work Phone: [phone] Urine color determinationon 01-31-2022 Color (U) Yellow [facility] Work Phone: [phone] Urine glucose measurement by automated test strip (mass/volume)on 01-31-2022 Glucose Auto test strip (U) [Mass/Vol] Negative Negative [facility] Work Phone: [phone] Urine leukocytes count by au tomated test strip (number/volume)on 01-31-2022 WBC Auto test strip (U) [#/Vol] Negative Negative [facility] Work Phone: [phone] Urine mucus detection by aut omated methodon 01-31-2022 Mucus Auto Ql (U) Present [facility] Work Phone: [phone] Urine nitrite detection by a utomated test stripon 01-31-2022 Nitrite Auto test strip Ql (U) Negative Negative [facility] Work Phone: [phone] Urobilinogen Auto test strip (U) [Mass/Vol]on 01-31-2022 Urobilinogen (U) [Mass/Vol] Normal 0.2-1.0 [facility] Work Phone: [phone] Venous Blood Gaseson 022 ABG Device Room Air Normal [facility] Comment on above: Performed By: #### L 702.1000 #### Main Laboratory ([facility]) [address] [place] [id number] Bjorn Washington MD ABG Draw Site Vein Normal [facility] Comment on above: Performed By: #### L 702.1000 #### Main Laboratory ([facility]) [address] [place], [facility] Bjorn Washington MD HCO3 (Bld) [Moles/Vol] 10.4 mmol/L Low 23.0-28.0 L [facility] Comment on above: Performed By: #### L 702.1000 #### Main Laboratory ([facility]) [address] [place], [facility] Bjorn Washington MD Oxygen saturation in Blood 91 % Low 95-98 [facility] Comment on above: Performed By: #### L 702.1000 #### Main Laboratory ([facility]) [address] [place], [place] [address] Bjorn Washington MD Unit Notified? Yes Normal [facility] Comment on above: Performed By: #### L 702.1000 #### Main Laboratory ([facility]) [address] [place], [facility] Bjorn Washington MD Venous Base Excess -17 mmol/L Low -2-3 [facility] Comment on above: Performed By: #### L 702.1000 #### Main Laboratory ([facility]) [address] [place], [facility] Bjorn Washington MD Venous FiO2 21.00 Normal [facility] Comment on above: Performed By: #### L 702.1000 #### Main Laboratory ([facility]) [address] [place] [address] Bjorn Washington MD Venous pCO2 25 mmHg Low 41-51 [facility] Comment on above: Performed By: #### L 702.1000 #### Main Laboratory ([facility]) [address] [place] [address] Bjorn Washington MD Venous pH 7.22 Low 7.31-7.41 [facility] Comment on above: Performed By: #### L 702.1000 #### Main Laboratory ([facility]) [address] [place] [address] Bjorn Washington MD Venous pO2 70 mmHg Low 80-105 [facility] Comment on above: Performed By: #### L 702.1000 #### Main Laboratory ([facility]) [address] [place] [address] Bjorn Washington MD Venous blood Amanda indexo n 01-31-2022 Amanda index (BldV+Inhl gas) [Ratio] 21.00 [facility] Work Phone: Venous blood base excess by calculationon 01-31-2022 Base excess Calc (BldV) [Moles/Vol] -17 mmol/L Low -2-3 [facility] Work Phone: Venous blood oxygen saturati on (mass fraction)on 01-31-2022 Oxygen saturation in Venous blood 91 % Low 95-98 [facility] Work Phone: Venous blood partial pressur e of carbon dioxide measurement adjusted to patients actuon 01-31-2022 CO2 adjusted to patient's actual temperature (BldV) [Partial pressure] 25 mmHg Low 41-51 [facility] Work Phone: Venous blood partial pressur e of oxygen measurement with patient temperature corrrecton 01-31-2022 Oxygen adjusted to patient's actual temperature (BldV) [Partial pressure] 70 mmHg Low 80-105 [facility] Work Phone: pH Auto test strip (U)on pH (U) 6.0 [pH] 5.0-8.0 [facility] Work Phone: PAP ACOG PANEL 2: 21 to 29on 06-27-2021 . . Normal [facility] Comment on above: Performed By: #### 4 [id number] #### [facility] [address] [address] [address] Ute Adame Age Gdln ACOG Testing 21- Normal [facility] Comment on above: Performed By: #### [id number] #### [facility] [address] [place] [address] Dr. Ute Adame DIAGNOSIS: Comment [facility] Comment on above: Result Comment: NEGA TIVE FOR INTRAEPITHELIAL LESION OR MALIGNANCY. CELLULAR CHANGES ASSOCIATED WITH INFLAMMATION ARE PRESENT. Performed By: #### 4 [id number] #### [facility] [address] [place] [address] Dr. Ute Adame Methodology: Comment Normal [facility] Comment on above: Result Comment: This liquid based ThinPrep(R) pap test was screened with the use of an image guided system. Performed By: #### [id number] #### [facility] [address] [place] [address] Dr. Ute Adame Note: Comment Normal [facility] Comment on above: Result Comment: The Pap smear is a screening test designed to aid in the detection of premalignant and malignant conditions of the uterine cervix. It is not a diagnostic procedure and should not be used as the sole means of detecting cervical cancer. Both false-positive and false-negative reports do occur. . Performed By: #### [id number] #### [facility] [address] [place] [address] Dr. Ute Adame Performed by: Comment Normal [facility] Comment on above: Result Comment: Danielle Alcaraz, Name Plate Stamper (ASCP) Performed By: #### [id number] #### [facility] [address] [place] [address] Dr. Ute Adame Reflex Criteria: Comment Normal [facility] Comment on above: Result Comment: The HPV DNA reflex criteria were not met with this specimen result therefore, no HPV testing was performed. . Performed By: #### [id number] #### [facility] [address] [place] [address] Dr. Ute Adame Specimen adequacy: Comment Normal [facility] Comment on above: Result Comment: Sati sfactory for evaluation. Endocervical and/or squamous metaplastic cells (endocervical component) are present. Performed By: #### 4 [id number] #### [facility] [address] [address] [address] Ute Adame Vital Signs Date Time Vital Sign Value Performing Clinician Ria young 02-01-2022 19:27-0500 Body temperature 98 [degF] Physician None Work Phone: [facility] Work Phone: 02-01-2022 19:27-0500 Diastolic blood pressure 77 mm[Hg] Physician None Work Phone: [facility] Work Phone: 02-01-2022 19:27-0500 Heart rate 75 /min Physician None Work Phone: [facility] Work Phone: 02-01-2022 19:27-0500 Respiratory rate 19 /min Physician None Work Phone: [facility] Work Phone: 02-01-2022 19:27-0500 SaO2% (BldA) [Mass fraction] 99 % Physician None Work Phone: [facility] Work Phone: 02-01-2022 19:27-0500 Systolic blood pressure 133 mm[Hg] Physician None Work Phone: [facility] Work Phone: 02-01-2022 00:16-0500 Body weight 83.2 kg Physician None Work Phone: [facility] Work Phone: 01-31-2022 04:13-0500 Body height 162.56 cm Physician None Work Phone: [facility] Work Phone: 01-31-2022 04:13-0500 Body mass index (BMI) [Ratio] 29.7 kg/m2 Physician None Work Phone: [facility] Work Phone: Encounters Encounter Date Encounter Type Care Provider Facility Start: 02-04-2023 End: 02-05-2023 Evaluation and management of inpatient RO TABARES [facility] Start: 02-01-2023 Evaluation and management of inpatient SOPHIE HUDSON [facility] Start: 02-01-2023 End: 02-01-2023 Orders Only Anjali Andino [employer] SERVICES ATTENDANT [facility] Comment on above: Pre-existing type 1 diabetes mellitus during in third trimester (Primary Dx); History of stillbirth in patient in third trimester, antepartum Start: 01-31-2023 End: 01-31-2023 ambulatory LINDA OLY Not Available Start: 01-23-2023 End: 01-24-2023 ambulatory LINDA R OLY [facility] Start: 01-17-2023 End: 01-17-2023 ambulatory CAITLIN BHATIA Not Available Start: 01-03-2023 End: 01-03-2023 ambulatory LINDA OLY Not Available Start: 12-20-2022 End: 12-20-2022 ambulatory CAITLIN JANNETTE Not Available Start: 01-31-2022 End: 02-01-2022 Evaluation and management of inpatient None Facility:[facility] Start: 01-31-2022 End: 02-01-2022 Evaluation and management of inpatient Physician None Work Phone: [facility] Start: 06-21-2021 End: 06-21-[address] TAMI ALVAREZ Facility:H1 Procedures Date Procedure Procedure Detail Performing Clinician Start: 01-30-2023 Adult depression screening assessment Anjali Andino [employer] SERVICES ATTENDANT Start: 09-20-2022 Microscopic observat ion [Identifier] in Cervix by Cyto stain Anjali Andino [employer] SERVICES ATTENDANT Start: 01-31-2022 Blood count hemoglobin Comment on above: Order Comment: Urine Source Urine, Clean Catch Performed By: #### L 400.0202, L400.2200, L400.4800 #### Main Laboratory ([facility]) [address] [place] [address] Bjorn Washington MD Start: 01-31-2022 CT of paranasal sinu ses with contrast Physician None Work Phone: Start: 04-27-2021 Microalbumin [Mass/volume] in Urine by Test strip Anjali Sina [employer] SERVICES ATTENDANT Start: 10-24-2019 End: 06-02-2020 H/O: section Previous delivery, antepartum Janiazeferino Andino [employer] SERVICES ATTENDANT Plan of Treatment Date Care Activity Detail Author Start: 03-25-2030 DTaP,Tdap and Td Vac cines (9 - Td or Tdap) DTaP,Tdap and Td Vaccines (9 - Td or Tdap) [facility] Start: 09-20-2025 Screening for malign ant neoplasm of cervix Pap Smear [facility] Start: 02-02-2024 End: 02-02-2024 US MFM with or without consult US MFM with or without consult Imaging Routine Pre-existing type 1 diabetes mellitus during in third trimester History of stillbirth in patient in third trimester, antepartum Expected: 02/02/2024 (Approximate), Expires: 02/02/2024 [facility] [employer] Work Phone: Comment on above: Expected: 02/02/2024 (Approximate), Expires: 02/02/2024 Start: 01-31-2024 Depression Screening Depression Scre ening [facility] Start: 01-24-2024 Adult BMI Screening Adult BMI Screen ing [facility] Start: 01-24-2024 Tobacco Screening Tobacco Screening [facility] Start: 02-19-2023 End: 02-19-2023 Patient encounter procedure 02/19/2023 11:00 AM EST Appointment [facility] [address] [place] [address] [facility] Start: 02-06-2023 End: 02-06-2023 ambulatory 02/06/2023 1:00 PM EST Initial [facility] for [facility] - [facility] [address] [place] [id number] [facility] Start: 02-01-2023 End: 02-01-2023 Patient encounter procedure 02/01/2023 3:00 PM EST Office Visit [facility] at [facility] [address] [place] [id number] Quinton Arita MD [address], [address] [place] [address] [facility] Start: 10-06-2022 Influenza vaccination Influenza Vacc ine [facility] Start: 04-27-2022 Urine screening for protein Urine Microalbumin [facility] Start: 02-01-2022 [facility] Work Phone: Start: 02-01-2022 Patient discharge [facility] Work Phone: Start: 02-01-2022 Patient transfer [facility] Work Phone: Start: 01-31-2022 Referral to ear, nos e and throat service [facility] Work Phone: Start: 01-31-2022 End: 01-31-2022 [facility] Work Phone: Start: 01-31-2022 Notification of physician [facility] Work Phone: Start: 01-31-2022 Catheterization of vein [facility] Work Phone: Start: 01-31-2022 Hospital admission, emergency, from emergency room [facility] Work Phone: Start: 01-31-2022 Vital signs measurements [facility] Work Phone: Start: 2018 Adult BMI Follow Up Plan Adult BMI Follow Up Plan [facility] Start: 2018 Diabetic foot examination Diabetic F oot Exam [facility] Start: 2000 COVID-19 Vaccine (#1) COVID-19 Vacci ne (#1) [facility] Start: 2000 Glaucoma screening Diabetic Op hthalmology Exam [facility] Bicarbonate [Moles/volume] in Blood [facility] Work Phone: Delta base, blood [facility] Work Phone: Measurement of venou s partial pressure of carbon dioxide [facility] Work Phone: Measurement of venou s partial pressure of oxygen [facility] Work Phone: Methicillin resistan t Staphylococcus aureus (MRSA) DNA [Presence] in Unspecified specimen by ROQUE with probe detection [facility] Work Phone: Methicillin resistan t Staphylococcus aureus [Presence] in Unspecified specimen by Organism specific culture [facility] Work Phone: Oxygen saturation in Venous blood [facility] Work Phone: Patient Education Tooth Abscess (DC) Diabetic Ketoacidosis (DC) [facility] Work Phone: Patient referral [facility] Work Phone: Vancomycin resistanc e Francisco gene [Presence] by Molecular method [facility] Work Phone: Immunizations Immunization Date Immunization Notes Care Provider Fa cility 04-20-2020 measles, mumps and rubella virus vaccine [facility] 03-25-2020 tetanus toxoid, redu jonathan diphtheria toxoid, and acellular pertussis vaccine, adsorbed [facility] 10-24-2019 influenza, injectabl e, quadrivalent, preservative free [facility] 10-24-2019 influenza virus vacc ine, unspecified formulation [facility] 11-22-2018 influenza, injectabl e,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
--- NOTE | 2023-02-13 11:19 | US_ITS ---
[address] [address] Patient Name: JAYY NGUYEN MRN: [id number] date: 2000 Sex: F Assigned Patient Location: Current Patient Location: [facility] Accession/Order Number: [id number] Exam Date: 02/13/2023 11:22 Report Date: 02/13/2023 11:52 At the request of: LINDA ALDRIDGE Procedure: US OB BPP w non-stress EXAMINATION: US OB BPP w non-stress HISTORY: Type 1 diabetes COMPARISON: No relevant comparison available. TECHNIQUE: Ultrasound biophysical profile was performed in the radiology department. FINDINGS: BREATHING MOVEMENTS: 2.0 GROSS BODY MOVEMENTS: 2.0 TONE: 2.0 QUALITATIVE AMNIOTIC FLUID VOLUME: 2.0 PRESENTATION: CEPHALIC HEART RATE: 155.2 bpm H.B./min AMNIOTIC FLUID VOLUME: 7.0 cm cm GESTATIONAL AGE: 35 weeks 4 days CONCLUSION: Total biophysical profile score: 8.0 Electronically authenticated by: SOPHIE DUBOIS Date: 02/13/2023 11:52
--- OUTSIDE RECORDS SUMMARY | 2023-02-13 11:22 | XMS_ITS | CCD ---
Author Name Unknown Address [address] [place] [address] Organization [facility] Care Team Providers Care Consultant Electronics Name Role Phone DR TAMI ALVAREZ Admitting Unavailable ANTONIO, DR GARRETT Attending Unavailable MISC, DR FIELD Primary Care Unavailable ANTONIO, DR GARRETT Consulting Unavailable None, Physician Primary Care Provider [phone] MD Derek Baum Admit Provider MD Derek Baum Attending Provider AMANDA Buck Other Provider Unavailab MD Good [place] Other Provider None Primary Care Unavailable Good Calderon Consulting Unavailable Derek Baum Admitting Unavailable Dreek Baum Attending Unavailable Tee Buck Consulting Unavailable Services, [facility] Care Provider LINDA ALDRIDGE Attending Unavailable CAITLIN BHATIA Attending Unavailable LINDA ALDRIDGE Attending Unavailable CAITLIN BHATIA Attending Unavailable QUINTON ARITA Attending Unavailable LINDA ALDRIDGE Referring Unavailable SERVICES, [facility] Unava ilable SOPHIE HUDSON Admitting Unavailable SOPHIE HUDSON Attending Unavailable SERVICES, [facility] Unava ilable CHARO DANIELLE Consulting Unavailable RO TABARES Attending Unavailable RO TABARES Referring Unavailable SERVICES, [facility] Unava ilable LINDA ALDRIDGE Referring Unavailable SERVICES, [facility] Care Unava ilable NGUYEN TILLEY Attending Unavailable LINDA ALDRIDGE Referring Unavailable SERVICES, [facility] Unava ilable Medications Current Medications Medication Drug [...] the morning for 220 days. 30 tablet 11/03/2022 06/11/2023 Active blood-glucose meter (ONETOUCH VERIO REFLECT METER) misc (1 source) Start: 08-30-2022 blood-glucose meter (ONETOUCH VERIO REFLECT METER) misc 1 Device by miscellaneous route in the morning. 1 each 08/30/2022 Active Blood-Glucose Sensor (Dexcom G6 Sensor) Device (2 sources) Start: 01-31-2022 Blood-Glucose Sensor (Dexcom G6 Sensor) Device Active EACH CA January 31, 2022 12:00am blood-glucose sensor (DEXCOM G7 SENSOR) device (1 source) Start: 05-31-2022 blood-glucose sensor (DEXCOM G7 SENSOR) device Change sensor every 10 days 3 each 05/31/2022 Active Blood-Glucose Transmitter (Dexcom G6 Transmitter) Device (2 sources) Start: 01-31-2022 Blood-Glucose Transmitter (Dexcom G6 Transmitter) Device Active EACH [place] January 31, 2022 12:00am doxylamine succinate 25 mg oral tablet (1 source) Start: 09-27-2022 take 1 tablet by mouth once daily as needed for sleep doxylamine (UNISOM) 25 mg tablet Take 1 tablet (25 mg total) by mouth nightly as needed for sleep. 30 tablet 09/27/2022 Active glucagon (rdna) 1 mg injection [...] diabetes mellitus with hypoglycemia and without coma ([facility]) Take 1 tablet (10 mg total) by mouth 3 (three) times a day. Three times a day before meals 30 tablet 2 10/02/2022 Active PNV 19-IRON PS,[id number]-[id number]-IMG ORAL (1 source) take 1 tablet by mouth once daily PNV 19-IRON PS,RWGY-[id number]-PQS ORAL Take 1 tablet by mouth Daily [...] [facility] Glucose Glucometer (BldC) [M ass/Vol]on 02-10-2023 Glucose [Mass/Vol] 89 mg/dL Normal 65-99 [facility] Glucose [Mass/Vol] 107 mg/dL High 65-99 [facility] Glucose [Mass/Vol] 70 mg/dL Normal 65-99 [facility] Glucose [Mass/Vol] 85 mg/dL Normal 65-99 [facility] Glucose [Mass/Vol] 59 mg/dL Low 65-99 [facility] Glucose [Mass/Vol] 42 mg/dL Critically low 65-99 [facility] Glucose [Mass/Vol] 131 mg/dL High 65-99 [facility] Glucose Glucometer (BldC) [M ass/Vol]on 02-09-2023 Glucose [Mass/Vol] 206 mg/dL High 65-99 [facility] Glucose [Mass/Vol] 117 mg/dL High 65-99 [facility] Glucose [Mass/Vol] 113 mg/dL High 65-99 [facility] Glucose Glucometer (BldC) [M ass/Vol]on 02-08-2023 Glucose [Mass/Vol] 134 mg/dL High 65-99 [facility] Glucose [Mass/Vol] 162 mg/dL High 65-99 [facility] Glucose [Mass/Vol] 152 mg/dL High 65-99 [facility] Glucose [Mass/Vol] 73 mg/dL Normal 65-99 [facility] Glucose Glucometer (BldC) [M ass/Vol]on 02-07-2023 Glucose [Mass/Vol] 156 mg/dL High 65-99 [facility] Glucose [Mass/Vol] 118 mg/dL High 65-99 [facility] Glucose [Mass/Vol] 145 mg/dL High 65-99 [facility] Glucose [Mass/Vol] 119 mg/dL High 65-99 [facility] Glucose [Mass/Vol] 54 mg/dL Low 65-99 [facility] Glucose [Mass/Vol] 50 mg/dL Critically low 65-99 [facility] STREP B SCREEN CULTUREon S. agalactiae Org specific cx Ql (Vag+Rectum) CULTURE RESULTS NEGATIVE FOR GROUP B STREPTOCOCCUS BY NUCLEIC ACID AMPLIFICATION Normal [facility] Comment on above: Performed By: #### 6 873-4, CMP, CBCA #### [facility] ([id number]) [address], [address] [place] [address] Glucose Glucometer (BldC) [M ass/Vol]on 02-06-2023 Glucose [Mass/Vol] 86 mg/dL Normal 65-99 [facility] Glucose [Mass/Vol] 116 mg/dL High 65-99 [facility] Glucose [Mass/Vol] 137 mg/dL High 65-99 [facility] Glucose [Mass/Vol] 220 mg/dL High 65-99 [facility] Glucose [Mass/Vol] 94 mg/dL Normal 65-99 [facility] Glucose [Mass/Vol] 47 mg/dL Critically low 65-99 [facility] Glucose [Mass/Vol] 39 mg/dL Critically low 65-99 [facility] Glucose Glucometer (BldC) [M ass/Vol]on 02-05-2023 Glucose [Mass/Vol] 155 mg/dL High 65-99 [facility] Glucose [Mass/Vol] 103 mg/dL High 65-99 [facility] Glucose [Mass/Vol] 84 mg/dL Normal 65-99 [facility] Glucose [Mass/Vol] 92 mg/dL Normal 65-99 [facility] Glucose [Mass/Vol] 61 mg/dL Low 65-99 [facility] Glucose [Mass/Vol] 50 mg/dL Critically low 65-99 [facility] Glucose Glucometer (BldC) [M ass/Vol]on 02-04-2023 Glucose [Mass/Vol] 103 mg/dL High 65-99 [facility] Glucose [Mass/Vol] 125 mg/dL High 65-99 [facility] Glucose [Mass/Vol] 112 mg/dL High 65-99 [facility] Glucose [Mass/Vol] 91 mg/dL Normal 65-99 [facility] Glucose [Mass/Vol] 71 mg/dL Normal 65-99 [facility] Glucose Glucometer (BldC) [M ass/Vol]on 12-30-2023 Glucose [Mass/Vol] 159 mg/dL High 65-99 [facility] Glucose [Mass/Vol] 115 mg/dL High 65-99 [facility] Glucose [Mass/Vol] 105 mg/dL High 65-99 [facility] Glucose Glucometer (BldC) [M ass/Vol]on 02-02-2023 Glucose [Mass/Vol] 140 mg/dL High 65-99 [facility] Glucose [Mass/Vol] 125 mg/dL High 65-99 [facility] Glucose [Mass/Vol] 135 mg/dL High 65-99 [facility] Glucose [Mass/Vol] 107 mg/dL High 65-99 [facility] Glucose [Mass/Vol] 145 mg/dL High 65-99 [facility] Glucose [Mass/Vol] 188 mg/dL High 65-99 [facility] POTASSIUMon 02-02-2023 Potassium [Moles/Vol] 4.0 mmol/L Normal 3.5-5.0 [facility] Comment on above: Performed By: #### 2 823-3 ####[facility] ([id number])[address], [address] [place] [address] Potassium [Moles/Vol] 3.6 mmol/L Normal 3.5-5.0 [facility] Comment on above: Performed By: #### 2 823-3 #### [facility] ([id number]) [address], [address] [place] [address] Beta hydroxybutyrate [Moles/ Vol]on 02-01-2023 BetaHydroxybutyrate 0.80 mmol/L High 0.02-0.27 [facility] Comment on above: Performed By: #### 6 873-4, CMP, CBCA #### [facility] ([id number]) [address], [address] [place] [address] CBC AND AUTO DIFFon 02-02-20 ABSOLUTE BASOPHIL 0.0 X10E9/L Normal 0.0-0.2 [facility] Comment on above: Performed By: #### 6 873-4, CMP, CBCA #### [facility] ([id number]) [address], [address] [place] [address] ABSOLUTE NEUTROPHIL 11.4 X10E9/L High 1.5-6.6 [facility] Comment on above: Performed By: #### 6 873-4, CMP, CBCA #### [facility] ([id number]) [address], [address] [place] [address] Basophils/100 WBC (Bld) 0.2 % Normal [facility] Comment on above: Performed By: #### 6 873-4, CMP, CBCA #### [facility] ([id number]) [address], [address] [place] [address] Eosinophils (Bld) [#/Vol] 0.1 10*3/uL Normal 0.0-0.4 [facility] Comment on above: Performed By: #### 6 873-4, CMP, CBCA #### [facility] ([id number]) [address], [address] [place] [address] Eosinophils/100 WBC (Bld) 0.4 % Normal [facility] Comment on above: Performed By: #### 6 873-4, CMP, CBCA #### [facility] ([id number]) [address], [address] [place] [address] Erythrocyte distribution width (RBC) [Ratio] 13.5 % Normal 11.5-15.0 [facility] Comment on above: Performed By: #### 6 873-4, CMP, CBCA #### [facility] ([id number]) [address], [address] [place] [address] Hematocrit (Bld) [Volume fraction] 33.0 % Low 35-47 [facility] Comment on above: Performed By: #### 6 873-4, CMP, CBCA #### [facility] ([id number]) [address], [address] [place] [address] Hemoglobin (Bld) [Mass/Vol] 11.5 g/dL Low 11.7-15.5 [facility] Comment on above: Performed By: #### 6 873-4, CMP, CBCA #### [facility] ([id number]) [address], [address] [facility] [place] [address] Lymphocytes (Bld) [#/Vol] 1.2 10*3/uL Normal 1.0-3.5 [facility] Comment on above: Performed By: #### 6 873-4, CMP, CBCA #### [facility] ([id number]) [address], [facility] [address] [place] [address] Lymphocytes/100 WBC (Bld) 8.7 % Normal [facility] Comment on above: Performed By: #### 6 873-4, CMP, CBCA #### [facility] ([id number]) [address], [facility] [address] [place] [address] MCH (RBC) [Entitic mass] 27.6 pg Normal 27-34 [facility] Comment on above: Performed By: #### 6 873-4, CMP, CBCA #### [facility] ([id number]) [address], [facility] [address] [place] [address] MCHC (RBC) [Mass/Vol] 34.8 g/dL Normal 32-36 [facility] Comment on above: Performed By: #### 6 873-4, CMP, CBCA #### [facility] ([id number]) [address], [facility] [address] [place] [address] MCV (RBC) [Entitic vol] 79 fL Low 80-100 [facility] Comment on above: Performed By: #### 6 873-4, CMP, CBCA #### [facility] ([id number]) [address], [address] [place] [address] Monocytes (Bld) [#/Vol] 0.6 10*3/uL Normal 0-0.9 [facility] Comment on above: Performed By: #### 6 873-4, CMP, CBCA #### [facility] ([id number]) [address], [address] [place] [address] Monocytes/100 WBC (Bld) 4.5 % Normal [facility] Comment on above: Performed By: #### 6 873-4, CMP, CBCA #### [facility] ([id number]) [address], [facility] [address] [place] [address] Neutrophils/100 WBC (Bld) 86.2 % Normal [facility] Comment on above: Performed By: #### 6 873-4, CMP, CBCA #### [facility] ([id number]) [address], [address] [place] [address] Platelet mean volume (Bld) [Entitic vol] 9.4 fL Normal 7-12 [facility] Comment on above: Performed By: #### 6 873-4, CMP, CBCA #### [facility] ([id number]) [address] [address] [address] [place] [address] Platelets (Bld) [#/Vol] 211 10*3/uL Normal 150-450 [facility] Comment on above: Performed By: #### 6 873-4, CMP, CBCA #### [facility] ([id number]) [address], [address] [place] [address] RBC COUNT 4.16 X10E12/L Normal 3.80-5.20 [facility] Comment on above: Performed By: #### 6 873-4, CMP, CBCA #### [facility] ([id number]) [address], [address] [place] [address] WBC (Bld) [#/Vol] 13.2 10*3/uL High 4.0-11.0 [facility] Comment on above: Performed By: #### 6 873-4, CMP, CBCA #### [facility] ([id number]) [address], [address] [place] [address] COMPREHENSIVE METABOLIC PANE Geoffrey 02-01-2023 Albumin [Mass/Vol] 3.3 g/dL Normal 3.2-5.3 [facility] Comment on above: Performed By: #### 6 873-4, CMP, CBCA #### [facility] ([id number]) [address], [address] [place] [address] ALP [Catalytic activity/Vol] 127 U/L Normal 39-130 [facility] Comment on above: Performed By: #### 6 873-4, CMP, CBCA #### [facility] ([id number]) [address], [address] [place] [address] ALT [Catalytic activity/Vol] 13 U/L Normal 0-31 [facility] Comment on above: Performed By: #### 6 873-4, CMP, CBCA #### [facility] ([id number]) [address], [address] [place] [address] Anion gap [Moles/Vol] 9 mmol/L Normal 5-15 [facility] Comment on above: Performed By: #### 6 873-4, CMP, CBCA #### [facility] ([id number]) [address], [address] [place] [address] AST [Catalytic activity/Vol] 19 U/L Normal 0-41 [facility] Comment on above: Performed By: #### 6 873-4, CMP, CBCA #### [facility] ([id number]) [address], [address] [place] [address] Bilirubin [Mass/Vol] 0.7 mg/dL Normal 0.3-1.2 [facility] Comment on above: Performed By: #### 6 873-4, CMP, CBCA #### [facility] ([id number]) [address], [address] [place] [address] Calcium [Mass/Vol] 8.1 mg/dL Low 8.5-10.5 [facility] Comment on above: Performed By: #### 6 873-4, CMP, CBCA #### [facility] ([id number]) [address] [facility] [address] [place] [address] Chloride [Moles/Vol] 103 mmol/L Normal 98-109 [facility] Comment on above: Performed By: #### 6 873-4, CMP, CBCA #### [facility] ([id number]) [address], [address] [place] [address] CO2 [Moles/Vol] 22 mmol/L Normal 22-32 [facility] Comment on above: Performed By: #### 6 873-4, CMP, CBCA #### [facility] ([id number]) [address], [facility] [address] [place] [address] Creatinine [Mass/Vol] 0.58 mg/dL Normal 0.40-1.00 [facility] Comment on above: Result Comment: METH OD TRACEABLE TO IDMS STANDARD Performed By: #### 6 873-4, CMP, CBCA #### [facility] ([id number]) [address] [address] [place] [address] eGFR (CKD-EPI) NON-RACE DEPENDENT >90 Normal >59 [facility] Comment on above: Result Comment: Reported eGFR is based on the CKD-EPI 2020 equation that does not use a race coefficient. Performed By: #### 6 873-4, CMP, CBCA #### [facility] ([id number]) [address] [address] [place] [address] Glucose [Mass/Vol] 158 mg/dL High 65-99 [facility] Comment on above: Performed By: #### 6 873-4, CMP, CBCA #### [facility] ([id number]) [address], [address] [place] [address] Potassium [Moles/Vol] 3.3 mmol/L Low 3.5-5.0 [facility] Comment on above: Performed By: #### 6 873-4, CMP, CBCA #### [facility] ([id number]) [address], [address] [place] [address] Protein [Mass/Vol] 6.2 g/dL Normal 6.0-8.0 [facility] Comment on above: Performed By: #### 6 873-4, CMP, CBCA #### [facility] ([id number]) [address], [address] [place] [address] Sodium [Moles/Vol] 134 mmol/L Normal 134-146 [facility] Comment on above: Performed By: #### 6 873-4, CMP, CBCA #### [facility] ([id number]) [address], [address] [place] [address] Urea nitrogen [Mass/Vol] 9 mg/dL Normal 5-23 [facility] Comment on above: Performed By: #### 6 873-4, CMP, CBCA #### [facility] ([id number]) [address], [address] [place] [address] Glucose Glucometer (BldC) [M ass/Vol]on 02-01-2023 Glucose [Mass/Vol] 153 mg/dL High 65-99 [facility] URINALYSISon 02-01-2023 Bilirubin Ql (U) Negative Normal NEG [facility] BLOOD/HGB Negative Normal NEG [facility] Color (U) YELLOW Normal YELLOW [facility] Glucose Ql (U) 1000 mg/dL Abnormal NEG [facility] Ketones Ql (U) 150 mg/dL Abnormal NEG [facility] Leukocyte esterase Test strip Ql (U) Negative Normal NEG [facility] Comment on above: Result Comment: HIGH CONCENTRATIONS OF GLUCOSE MAY DECREASE THE REACTIVITY OF THE DIPSTICK LEUKOCYTE TEST PAD. MUCOUS PRESENT Abnormal NONE [facility] Nitrite Ql (U) Negative Normal NEG [facility] pH (U) 6.0 [pH] Normal 5.0-8.5 [facility] Protein Ql (U) 30 mg/dL Abnormal NEG [facility] R.B.CELLS 1 /hpf Normal 0-5 [facility] Specific gravity (U) [Rel density] 1.030 Normal 1.003-1.035 [facility] SQUAMOUS EPITHELIUM 2 /hpf Normal 0-5 [facility] TURBIDITY CLEAR Normal CLEAR [facility] Urobilinogen (U) [Mass/Vol] mg/dL Normal <1.1 [facility] W.B.CELLS 4 /hpf Normal 0-5 [facility] Albumin [Mass/volume] in Ser um or Plasmaon 02-01-2022 Albumin [Mass/Vol] 3.5 g/dL 3.5-5.0 [facility] Work Phone: Basic Metabolic,Non-Fastingo n 02-01-2022 Anion gap [Moles/Vol] 7 mmol/L Normal 4-12 [facility] Comment on above: Performed By: #### L 400.0202, L400.2200, L499.4800 #### Main Laboratory ([facility]) [address] [place] [address] Bjorn Washington MD Calcium [Mass/Vol] 8.20 mg/dL Low 8.8-10.5 [facility] Comment on above: Performed By: #### L 400.0202, L400.2200, L400.480 #### Main Laboratory ([facility]) [address] [place] [address] Bjorn Washington MD Chloride [Moles/Vol] 103 mmol/L Normal 101-111 [facility] Comment on above: Performed By: #### L 400.0202, L400.2200, L400.4800 #### Main Laboratory ([facility]) [address] [place] [address] Bjorn Washington MD CO2 [Moles/Vol] 23 mmol/L Invalid Interpretation Code 21-32 [facility] Comment on above: Result Comment: Delt a: 17 on 02/01/22-316 Performed By: #### L 400.0202, L400.2200, L400.4800 #### Main [facility] ([facility]) [address] [place] [address] Bjorn Washington MD Creatinine [Mass/Vol] 0.56 mg/dL Low 0.60-1.30 [facility] Comment on above: Performed By: #### L 400.0202, L400.2200, L400.4800 #### [facility] ([facility]) [address] [place] [address] Bjorn Washington MD GFR Calculation > 60 Normal [facility] Comment on above: Result Comment: [employer] Displays Analyst mau Kidney Disease stages by NKDF Stage eGFR I >90 II 60-89 III 30-59 IV 15-29 V <15 or dialysis AGE(years) AVERAGE GFR 20-29 116 ml/min/1.73 square meters Note:This result is normalized to 1.73 square meter body surface area. Height and weight are not factored. Performed By: #### L 400.0202, L400.2200, L400.4800 #### Main Laboratory ([facility]) [address] [place] [address] Bjorn Washington MD Glucose [Mass/Vol] 224 mg/dL High 70-110 [facility] Comment on above: Performed By: #### L 400.0202, L400.2200, L400.4800 #### Main Laboratory ([facility]) [address] [place] [address] Bjorn Washington MD Potassium [Moles/Vol] 4.0 mmol/L Normal 3.6-5.0 [facility] Comment on above: Performed By: #### L 400.0202, L400.2200, L400.4800 #### Main Laboratory ([facility]) [address] [place] [address] Bjorn Washington MD Sodium [Moles/Vol] 133 mmol/L Low 135-145 [facility] Comment on above: Performed By: #### L 400.0202, L400.2200, L400.4800 #### Main Laboratory ([facility]) [address] [place] [address] Bjorn Washington MD Urea nitrogen [Mass/Vol] 3 mg/dL Low 7-20 [facility] Comment on above: Performed By: #### L 400.0202, L400.2200, L400.4800 #### Main Laboratory ([facility]) [address] [place] [address] Bjorn Washington MD Basophils Auto (Bld) [#/Vol] on 02-01-2022 Basophils (Bld) [#/Vol] 0 /cmm 0-200 L [facility] Work Phone: [phone] Basophils/100 WBC Auto (Bld) on 02-01-2022 Basophils/100 WBC (Bld) 0.4 % 0-2 L [facility] Work Phone: [phone] Blood anion gapon 02-01-2022 Anion gap (Bld) [Moles/Vol] 7 mmol/L 4-12 [facility] Work Phone: [phone] Blood coagulation panelon Blood coagulation panel 100 /cmm 0-500 L [facility] Work Phone: [phone] Blood hematocrit (volume fra ction)on 02-01-2022 Hematocrit (Bld) [Volume fraction] 35.9 % 35.0-44.0 [facility] Work Phone: Blood hemoglobin measurement (mass/volume)on 02-01-2022 Hemoglobin (Bld) [Mass/Vol] 13.0 g/dL 12.0-15.0 [facility] Work Phone: CBC with Differentialon 01-06 Abs Baso Count 0 /cmm Normal 0-200 [facility] Comment on above: Performed By: #### L 400.0202, L400.2200, L400.4800 #### Main Laboratory ([facility]) [address] [place], [place] [address] Bjorn Washington MD Abs Eos Count 100 /cmm Normal 0-500 [facility] Comment on above: Performed By: #### L 400.0202, L400.2200, L400.4800 #### Main Laboratory ([facility]) [address] [place], [place] [address] Bjorn Washington MD Abs Lymph Count 2100 /cmm Normal [id number] [facility] Comment on above: Performed By: #### L 400.0202, L400.2200, L400.4800 #### Main Laboratory ([facility]) [address] [place], [place] [address] Bjorn Washington MD Abs Story Count 600 /cmm Normal 0-800 [facility] Comment on above: Performed By: #### L 400.0202, L400.2200, L400.4800 #### Main Laboratory ([facility]) [address] [place], [facility] Bjorn Washington MD Abs Neut Count 8100 /cmm High [phone] [facility] Comment on above: Performed By: #### L 400.0202, L400.2200, L400.4800 #### Main Laboratory ([facility]) [address] [place] [address] Bjorn Washington MD Basophils/100 WBC (Bld) 0.4 % Normal 0-2 L [facility] Comment on above: Performed By: #### L 400.0202, L400.2200, L400.4800 #### Main Laboratory ([facility]) [address] [place] [id number] Bjorn Washington MD EOS-Auto Diff 0.6 % Normal 0-6 [facility] Comment on above: Performed By: #### L 400.0202, L400.2200, L400.4800 #### Main Laboratory ([facility]) [address] [place] [id number] Bjorn Washington MD Erythrocyte distribution width (RBC) [Ratio] 14.2 % Normal 12.0-16.0 [facility] Comment on above: Performed By: #### L 400.0202, L400.2200, L400.4800 #### Main Laboratory ([facility]) [address] [place] [address] Bjorn Washington MD Hematocrit (Bld) [Volume fraction] 35.9 % Normal 35.0-44.0 [facility] Comment on above: Performed By: #### L 400.0202, L400.2200, L400.4800 #### Main Laboratory ([facility]) [address] [place] [address] Bjorn Washington MD Hemoglobin (Bld) [Mass/Vol] 13.0 g/dL Normal 12.0-15.0 [facility] Comment on above: Performed By: #### L 400.0202, L400.2200, L400.4800 #### Main Laboratory ([facility]) [address] [place] [address] Bjorn Washington MD Lymphocytes/100 WBC (Bld) 19.2 % Invalid Interpretation Code 15-45 [facility] Comment on above: Result Comment: Delt a: 6.1 on 01/31/22-0530 Performed By: #### L 400.0202, L400.2200, L400.4800 #### Main Laboratory ([facility]) [address] [place] [address] Bjorn Washington MD MCH (RBC) [Entitic mass] 27.5 pg Normal 27.5-33.0 [facility] Comment on above: Performed By: #### L 400.0202, L400.2200, L400.4800 #### Main Laboratory ([facility]) [address] [place] [address] Bjorn Washington MD MCHC (RBC) [Mass/Vol] 35.7 g/dL Normal 33.0-36.0 [facility] Comment on above: Performed By: #### L 400.0202, L400.2200, L400.4800 #### Main Laboratory ([facility]) [address] [place], [facility]04 Bjorn Washington MD MCV 77.0 CU ANDREW Low 80-97 [facility] Comment on above: Performed By: #### L 400.0202, L400.2200, L400.4800 #### Main Laboratory ([facility]) [address] [place] [address] Bjorn Washington MD Story- Auto Diff 5.6 % Normal 2-10 [facility] Comment on above: Performed By: #### L 400.0202, L400.2200, L400.4800 #### Main Laboratory ([facility]) [address] [place] [address] Bjorn Washington MD Neut-Auto Diff 74.2 % High 40-70 [facility] Comment on above: Performed By: #### L 400.0202, L400.2200, L400.4800 #### Main Laboratory ([facility]) [address] [place], [facility]04 Bjorn Washington MD NRBC-Auto 0.1 /100 WBC Normal <1 [facility] Comment on above: Performed By: #### L 400.0202, L400.2200, L400.4800 #### Main Laboratory ([facility]) [address] [place] [address] Bjorn Washington MD Platelet Count 249 th/cmm Normal 150-400 [facility] Comment on above: Performed By: #### L 400.0202, L400.2200, L400.4800 #### Main Laboratory ([facility]) [address] [place] [address] Bjorn Washington MD RBC 4.66 mil/cmm Normal 4.00-5.10 [facility] Comment on above: Performed By: #### L 400.0202, L400.2200, L400.4800 #### Main Laboratory ([facility]) [address] [place] [address] Bjorn Washington MD WBC 10.9 th/cmm High 4.4-10.5 [facility] Comment on above: Performed By: #### L 400.0202, L400.2200, L400.4800 #### Main Laboratory ([facility]) [address] [place] [address] Bjorn Washington MD Case Management Admissionon 02-01-2022 Case Management Admission [facility] Case Management Patient: JAYY NGUYEN [address] : [address] [place] [address] Location: ICU [phone] Unit #: [id number] Case Management Admission Nancy Huntley RN Service Date: 01/31/22 Case Mgmt Admission/Disch Plan - Patient Preferences AND Goals What is the patient's preference?: Services to be Determined Recommended acute discharge goals: Services to be Determined - Hospital Stay Day Day 1 Comment: 01/31/22 Pt is here for DKA/sepsis. Patient is type I diabetic. Pt has [employer] insurance. Awaiting ENT consulted for mouth abcess. Pt lives with her significant other and daughter. Pt is independent with ADLs and drives. Pt on Augmentin. Pt reports she has all supplies at home to manage DM including cont reader and insulin pump. Patient did not report a PCP but states she goes not [facility] in [place]. Orthotic/Prosthetic Clinician: Nancy Huntley, RN Day 2 Comment: 02/01/22 Pt drowsy and fallimng asleep during conversation with CM during CM rounding, patient denies any homegoing service/dme needs at this time including HHC. Orthotic/Prosthetic Clinician: Nancy Huntley, RN - Demographics Current Diagnosis(s): DKA. Sepsis Information Given by: Patient Primary Insurance: [employer] Secondary Insurance: [employer] Prescription Coverage: Yes Family/Caregiver Contact: Mi Nguyen Relationship: mother Does the patient have VA services?: No Does the patient have a [facility] provider?: No - Readmission Information Was the patient readmitted within the past 30 days?: No Where was the patient admitted from?: Home Does Patient have any Services in Place?: No - Healthcare Decisions Code Status Per Patient Request (Full Code, DNRCC, DNRCCA): Full Code Durable Power of Veterinary Meat Inspector for Health Care: No Directive, No SS Referral [facility] DNR Comfort Care: No Directive, No SS Referral [place] DNR Comfort Care Arrest: No Directive, No SS Referral - Mental Status Prior Mental Status: Alert and Oriented Current Mental Status: Alert and Oriented - Living Situation Home Situation: Lives with Significant Other Home Type: Single Family Home Does the patient drive?: Yes - Support System Support System: Relatives, Friends - Skilled Days Has patient been in a senior care facility in past 60 days: No Have [...] No If Yes to either question, notify Bank Sales And Service Manager.: No - Discharge Plan Discharge Plan Discussed [...] 02/03/22 Entered by: Nancy Huntley RN on 01/31/22 1551 Report Signed by: Nancy Huntley RN on 02/01/22 8823 < > Co-Signed by: on Normal [facility] Case Management Daily Noteon 02-01-2022 Case Management Daily Note [facility] Case Management Patient: JAYY NGUYEN [address] : [address] [place], [place] [address] Location: ICU [phone] Unit #: [id number] Case Management Daily Note Nancy Huntley RN Service Date: 02/01/22 Case Mgmt Daily Note - Plan of Care Orthotic/Prosthetic Clinician Agrees with Attending and Consult Plan: Yes [...] a PCP but [facility] [place]. Orthotic/Prosthetic Clinician: Nancy Huntley, RN Day 2 Comment: 02/01/22 Pt drowsy and fallimng asleep during conversation with CM during CM rounding, patient denies any homegoing service/dme needs at this time including HHC. Orthotic/Prosthetic Clinician: Nancy Huntley, RN - Transportation Mode of [...] 02/03/22 Entered by: Nancy Huntley RN on 02/01/221400 Report Signed by: Nancy Huntley RN on 02/01/22 1409 < > Co-Signed by: on Normal [facility] Comprehensive Metabolic Pane geoffrey 02-01-2022 Albumin [Mass/Vol] 3.5 g/dL Normal 3.5-5.0 [facility] Comment on above: Performed By: #### L 702.1000 #### Main Laboratory ([facility]) [address] [place] [address] Bjorn Washington MD Albumin/Globulin [Mass ratio] 1.3 {ratio} Low 1.5-2.5 [facility] Comment on above: Performed By: #### L 702.1000 #### Main Laboratory ([facility]) [address] [place] [address] Bjorn Washington MD Alk Phos 74 IU/L Normal 39-118 [facility] Comment on above: Performed By: #### L 702.1000 #### Main Laboratory ([facility]) [address] [place] [address] Bjorn Washington MD ALT [Catalytic activity/Vol] 8 U/L Low 10-40 [facility] Comment on above: Performed By: #### L 702.1000 #### Main Laboratory ([facility]) [address] [place] [address] Bjorn Washington MD Anion gap [Moles/Vol] 11 mmol/L Normal 4-12 [facility] Comment on above: Performed By: #### L 702.1000 #### Main Laboratory ([facility]) [address] [place] [address] Bjorn Washington MD AST [Catalytic activity/Vol] 9 U/L Low 15-41 [facility] Comment on above: Performed By: #### L 702.1000 #### Main Laboratory ([facility]) [address] [place] [address] Bjorn Washington MD Bili,Total 0.7 mg/dL Normal 0.2-1.0 [facility] Comment on above: Performed By: #### L 702.1000 #### Main Laboratory ([facility]) [address] [place] [address] Bjorn Washington MD Calcium [Mass/Vol] 8.30 mg/dL Low 8.8-10.5 [facility] Comment on above: Performed By: #### L 702.1000 #### Main Laboratory ([facility]) [address] [place] [address] Bjorn Washington MD Chloride [Moles/Vol] 104 mmol/L Normal 101-111 [facility] Comment on above: Performed By: #### L 702.1000 #### Main Laboratory ([facility]) [address] [place] [address] Bjorn Washington MD CO2 [Moles/Vol] 17 mmol/L Low 21-32 [facility] Comment on above: Performed By: #### L 702.1000 #### Main Laboratory ([facility]) [address] [place] [address] Bjorn Washington MD Creatinine [Mass/Vol] 0.59 mg/dL Low 0.60-1.30 [facility] Comment on above: Performed By: #### L 702.1000 #### Main Laboratory ([facility]) [address] [place] [address] Bjorn Washington MD GFR Calculation > 60 Normal [facility] Comment on above: Result Comment: Iap Displays Analyst mau Kidney Disease stages by NKDF Stage eGFR I >90 II 60-89 III 30-59 IV 15-29 V <15 or dialysis AGE(years) AVERAGE GFR 20-29 116 ml/min/1.73 square meters Note:This result is normalized to 1.73 square meter body surface area. Height and weight are not factored. Performed By: #### L 702.1000 #### Main Laboratory ([facility]) [address] [place] [address] Bjorn Washington MD Glucose [Mass/Vol] 250 mg/dL High 70-110 [facility] Comment on above: Performed By: #### L 702.1000 #### Main Laboratory ([facility]) [address] [place] [address] Bjorn Washington MD Potassium [Moles/Vol] 3.7 mmol/L Normal 3.6-5.0 [facility] Comment on above: Performed By: #### L 702.1000 #### Main Laboratory ([facility]) [address] [place] [address] Bjorn Washington MD Protein [Mass/Vol] 6.1 g/dL Low 6.2-8.0 [facility] Comment on above: Performed By: #### L 702.1000 #### Main Laboratory ([facility]) [address] [place] [address] Bjorn Washington MD Sodium [Moles/Vol] 132 mmol/L Low 135-145 [facility] Comment on above: Performed By: #### L 702.1000 #### Main Laboratory ([facility]) [address] [place], [place] [address] [address] Bjorn Washington MD Urea nitrogen [Mass/Vol] 5 mg/dL Low 7-20 [facility] Comment on above: Performed By: #### L 702.1000 #### Main Laboratory ([facility]) [address] [place], [place] [address] [address] Bjorn Washington MD Eosinophils/100 WBC Auto (Bl d)on 02-01-2022 Eosinophils/100 WBC (Bld) 0.6 % 0-6 [facility] Work Phone: Erythrocyte distribution wid th ratioon 02-01-2022 Erythrocyte distribution width (RBC) [Ratio] 14.2 % 12.0-16.0 [facility] Work Phone: Glucose (S/P/Bld) [Mass/Vol] on 02-01-2022 Glucose [Mass/Vol] 315 mg/dL High 70-110 [facility] Work Phone: Glycated Hemoglobinon 2021 Glycated Hemoglobin 9.8 % High 4.0-5.6 [facility] Comment on above: Result Comment: Hemo globin A1c values greater than or equal to 6.5 percent are diagnostic for diabetes mellitus. Diagnosis should be confirmed by repeat testing. In diabetic patients, HbA1c goals should be discussed with healthcare provider. Test Performed by: [place] [address] Supervisor Plate Forming: T[place] M.D. Ph.D.; CLIA# [id number] Performed By: #### L 400.0202, L400.2200, L400.4800 #### Main Laboratory ([facility]) [facility] [address] Bjorn Washington MD Lymphocytes/100 WBC Auto (Bl d)on 02-01-2022 Lymphocytes/100 WBC (Bld) 19.2 % 15-45 [facility] Work Phone: Comment on above: Delta: 6.1 on -0530 MCH Auto (RBC) [Entitic mass ]on 02-01-2022 MCH (RBC) [Entitic mass] 27.5 pg 27.5-33.0 [facility] Work Phone: [phone] MCHC Auto (RBC) [Mass/Vol]on 02-01-2022 MCHC (RBC) [Mass/Vol] 35.7 g/dL 33.0-36.0 [facility] Work Phone: MCV Auto (RBC) [Entitic vol] on 02-01-2022 MCV (RBC) [Entitic vol] 77.0 CU ANDREW Low 80-97 [facility] Work Phone: Magnesiumon 02-01-2022 Magnesium [Mass/Vol] 1.9 mg/dL Normal 1.8-2.5 [facility] Comment on above: Performed By: #### L 400.0202, L400.2200, L400.4800 #### Main Laboratory ([facility]) [address] [place] [address] Bjorn Washington MD Magnesium [Mass/Vol] 1.5 mg/dL Low 1.8-2.5 [facility] Comment on above: Performed By: #### L 702.1000 #### Main Laboratory ([facility]) [address] [place] [address] Bjorn Washington MD Meter Glucoseon 02-01-2022 Glucose [Mass/Vol] 315 mg/dL High 70-110 [facility] Comment on above: Performed By: #### L 702.1000 #### Main Laboratory ([facility]) [address] [place] [address] Bjorn Washington MD Glucose [Mass/Vol] 201 mg/dL High 70-110 [facility] Comment on above: Performed By: #### L 702.1000 #### Main Laboratory ([facility]) [address] [place] [address] Bjorn Washington MD Glucose [Mass/Vol] 212 mg/dL High 70-110 [facility] Comment on above: Performed By: #### L 702.1000 #### Main Laboratory ([facility]) [address] [place] [address] Bjorn Washington MD Glucose [Mass/Vol] 253 mg/dL High 70-110 [facility] Comment on above: Performed By: #### L 400.0202, L400.2200, L400.4800 #### Main Laboratory ([facility]) [address] [place] [address] Bjorn Washington MD Glucose [Mass/Vol] 145 mg/dL High 70-110 [facility] Comment on above: Performed By: #### L 702.1000 #### Main Laboratory ([facility]) [address] [place] [address] Bjorn Washington MD Glucose [Mass/Vol] 128 mg/dL High 70-110 [facility] Comment on above: Performed By: #### L 702.1000 #### Main Laboratory ([facility]) [address] [place] [address] Bjorn Washington MD Glucose [Mass/Vol] 222 mg/dL High 70-110 [facility] Comment on above: Performed By: #### L 400.0202, L400.2200, L400.4800 #### Main Laboratory ([facility]) [address] [place] [address] Bjorn Washington MD Glucose [Mass/Vol] 107 mg/dL Normal 70-110 [facility] Comment on above: Performed By: #### L 400.0202, L400.2200, L400.4800 #### Main Laboratory ([facility]) [address] [place] [address] Bjorn Washington MD Glucose [Mass/Vol] 245 mg/dL High 70-110 [facility] Comment on above: Performed By: #### L 400.0202, L400.2200, L400.4800 #### Main Laboratory ([facility]) [address] [place] [address] Bjorn Washington MD Monocytes Auto (Bld) [#/Vol] on 02-01-2022 Monocytes (Bld) [#/Vol] 600 /cmm 0-800 L [facility] Work Phone: [phone] Monocytes/100 WBC Auto (Bld) on 02-01-2022 Monocytes/100 WBC (Bld) 5.6 % 2-10 L [facility] Work Phone: Neutrophils/100 WBC Auto (Bl d)on 02-01-2022 Neutrophils/100 WBC (Bld) 74.2 % High 40-70 [facility] Work Phone: No Panel Informationon 02-01 Glomerular Filtration Rate Calc > 60 >60 [facility] Work Phone: Comment on above: AGE(years) AVERAGE G FR 20-29 116 ml/min/1.73 square metersNote:This result is normalized to 1.73 square meter body surface area. Height and weight are not factored.Chronic Kidney Disease stages by NKDFStage eGFR I >90 II 60-89 III 30-59 IV 15-29 V <15 or dialysis Absolute Lymphocytes (auto) 2100 /cmm [phone] [facility] Work Phone: Absolute Neutrophils (auto) 8100 /cmm High 7775-3828 [facility] Work Phone: Nucleated RBC Auto (Bld) [#/ Vol]on 02-01-2022 Nucleated RBC (Bld) [#/Vol] 0.1 /100 WBC <1 [facility] Work Phone: Phosphoruson 02-01-2022 Phosphate [Mass/Vol] 2.3 mg/dL Low 2.4-4.7 [facility] Comment on above: Result Comment: Delt a: < 1.0 on 02/01/22 Performed By: #### L 702.1000 #### Main Laboratory ([facility]) [address] [place] [address] Bjorn Washington MD Phosphate [Mass/Vol] mg/dL Critically low 2.4-4.7 [facility] Comment on above: Result Comment: Crit ical Result S_PHOS:<1.0 Called to and read back by: AZAM PHILIPPE at: 02/01/2022 10:33:13 by:[email or web address] Performed By: #### L 400.0202, L400.2200, L400.4800 #### Main Laboratory ([facility]) [address] [place] [address] Bjorn Washington MD Phosphate [Mass/Vol] 1.0 mg/dL Critically low 2.4-4.7 [facility] Comment on above: Result Comment: Crit ical Result S_PHOS:1.0 Called to and read back by: AZAM PHILIPPE at: 02/01/2022 09:18:42 by:KMENGL Performed By: #### L 702.1000 #### Main Laboratory ([facility]) [address] [place] [address] Bjorn Washington MD Platelets Auto (Bld) [#/Vol] on 02-01-2022 Platelets (Bld) [#/Vol] 249 th/cmm 150-400 L [facility] Work Phone: Progress Note - ENTon 2021 Progress Note - ENT [facility] Medical Records Patient: JAYY NGUYEN [address] : [address] [place] [address] Location: ICU [phone] Unit #: [id number] Progress Note - ENT Good Calderon MD Service Dt/Tm: 02/01/22 6820 Assessment/Problem (1) Dental infection: Status: Acute Plan: [...] < > Report Signed by: on Normal [facility] Progress Note Critical Careo n 02-01-2022 Progress Note Critical Care [facility] Medical Records Patient: JAYY NGUYEN. : [address] [place], [place] [address] Location: ICU [phone] Unit #: [id number] Progress Note Critical Care Tee Buck PA-C [...] 875 Mg Tab) 875 mg PO Q12H [facility] Stop: 02/11/22 05:01 Dextrose (Dextrose 50% 25 Gm/50 Ml Syr) 12.5 gm IV PUSH DIRECTED PRN PRN Reason: Hypoglcyemia per insulin protocol Stop: 05/10/22 17:36 Electrolyte Protocol (Phosphorus Replacement (more content not included)... Normal [facility] RBC Auto (Bld) [#/Vol]on RBC (Bld) [#/Vol] 4.66 mil/cmm 4.00-5.10 [facility] Work Phone: [phone] Serum or plasma alanine carpenter otransferase measurement (enzymatic activity/volume)on 02-01-2022 ALT [Catalytic activity/Vol] 8 U/L Low 10-40 [facility] Work Phone: [phone] Serum or plasma albumin/glob ulin mass ratioon 02-01-2022 Albumin/Globulin [Mass ratio] 1.3 {ratio} Low 1.5-2.5 [facility] Work Phone: [phone] Serum or plasma alkaline denice sphatase measurement (enzymatic activity/volume)on 02-01-2022 ALP [Catalytic activity/Vol] 74 U/L 39-118 [facility] Work Phone: [phone] Serum or plasma aspartate am inotransferase measurement (enzymatic activity/volume)on 02-01-2022 AST [Catalytic activity/Vol] 9 U/L Low 15-41 [facility] Work Phone: [phone] Serum or plasma calcium ruth ann urement (mass/volume)on 02-01-2022 Calcium [Mass/Vol] 8.20 mg/dL Low 8.8-10.5 [facility] Work Phone: [phone] Serum or plasma carbon dioxi de, total measurement (moles/volume)on 02-01-2022 CO2 [Moles/Vol] 23 mmol/L 21-32 [facility] Work Phone: Comment on above: Delta: 17 on 2-0317 Serum or plasma chloride desirae surement (moles/volume)on 02-01-2022 Chloride [Moles/Vol] 103 mmol/L 101-111 [facility] Work Phone: Serum or plasma creatinine m easurement (mass/volume)on 02-01-2022 Creatinine [Mass/Vol] 0.56 mg/dL Low 0.60-1.30 [facility] Work Phone: Serum or plasma glucose ruth ann urement (mass/volume)on 02-01-2022 Glucose [Mass/Vol] 224 mg/dL High 70-110 [facility] Work Phone: [phone] Serum or plasma magnesium me asurement (mass/volume)on 02-01-2022 Magnesium [Mass/Vol] 1.9 mg/dL 1.8-2.5 [facility] Work Phone: Serum or plasma phosphate me asurement (mass/volume)on 02-01-2022 Phosphate [Mass/Vol] 2.3 mg/dL Low 2.4-4.7 [facility] Work Phone: Comment on above: Delta: < 1.0 on 01/06 Serum or plasma potassium me asurement (moles/volume)on 02-01-2022 Potassium [Moles/Vol] 4.0 mmol/L 3.6-5.0 [facility] Work Phone: Serum or plasma protein ruth ann urement (mass/volume)on 02-01-2022 Protein [Mass/Vol] 6.1 g/dL Low 6.2-8.0 [facility] Work Phone: Serum or plasma sodium measu rement (moles/volume)on 02-01-2022 Sodium [Moles/Vol] 133 mmol/L Low 135-145 [facility] Work Phone: Serum or plasma total biliru bin measurement (mass/volume)on 02-01-2022 Bilirubin [Mass/Vol] 0.7 mg/dL 0.2-1.0 [facility] Work Phone: Serum or plasma urea nitroge n measurement (mass/volume)on 02-01-2022 Urea nitrogen [Mass/Vol] 3 mg/dL Low 7-20 [facility] Work Phone: WBC Auto (Bld) [#/Vol]on WBC (Bld) [#/Vol] 10.9 th/cmm High 4.4-10.5 [facility] Work Phone: * Urine urinalysis yeast owen iants panel by computer assisted methodon 01-31-2022 Urinalysis yeast variants panel Computer assisted (U) Present High [facility] Work Phone: Automated bacteria count in urine sediment (number/area)on 01-31-2022 Bacteria Auto (Urine sed) [#/Area] Trace [facility] Work Phone: [phone] Automated blood hypochromia detectionon 01-31-2022 Hypochromia Auto Ql (Bld) 1+ [facility] Work Phone: [phone] Automated erythrocytes count in urine sediment (number/area)on 01-31-2022 RBC Auto (Urine sed) [#/Area] 0-2 /HPF [facility] Work Phone: [phone] Automated leukocytes count i n urine sediment (number/area)on 01-31-2022 WBC Auto (Urine sed) [#/Area] 0-5 /HPF [facility] Work Phone: Automated squamous epithelia l cells count in urine sediment (number/area)on 01-31-2022 Epithelial cells.squamous Auto (Urine sed) [#/Area] 11-20 /HPF High [facility] Work Phone: Basic Metabolic Panel,Fastin javi 01-31-2022 Anion gap [Moles/Vol] 8 mmol/L Normal 4-12 [facility] Comment on above: Performed By: #### L 400.0202, L400.2200, L400.4800 #### Main Laboratory ([facility]) [address] [place] [address] Bjorn Washington MD Calcium [Mass/Vol] 8.50 mg/dL Low 8.8-10.5 [facility] Comment on above: Performed By: #### L 400.0202, L400.2200, L400.4800 #### Main Laboratory ([facility]) [address] [place] [address] Bjorn Washington MD Chloride [Moles/Vol] 105 mmol/L Normal 101-111 [facility] [facility] Comment on above: Performed By: #### L 400.0202, L400.2200, L400.4800 #### Main Laboratory ([facility]) [address] [place] [address] Bjorn Washington MD CO2 [Moles/Vol] 19 mmol/L Low 21-32 [facility] Comment on above: Performed By: #### L 400.0202, L400.2200, L400.4800 #### Main Laboratory ([facility]) [address] [place] [address] Bjorn Washington MD Creatinine [Mass/Vol] 0.62 mg/dL Normal 0.60-1.30 [facility] Comment on above: Performed By: #### L 400.0202, L400.2200, L400.4800 #### Main Laboratory ([facility]) [address] [place] [address] Bjorn Washington MD GFR Calculation > 60 Normal [facility] Comment on above: Result Comment: Iap Displays Analyst mau Kidney Disease stages by NKDF Stage eGFR I >90 II 60-89 III 30-59 IV 15-29 V <15 or dialysis AGE(years) AVERAGE GFR 20-29 116 ml/min/1.73 square meters Note:This result is normalized to 1.73 square meter body surface area. Height and weight are not factored. Performed By: #### L 400.0202, L400.2200, L400.4800 #### Main Laboratory ([facility]) [address] [place] [address] Bjorn Washington MD Glucose [Mass/Vol] 216 mg/dL High 70-110 [facility] Comment on above: Performed By: #### L 400.0202, L400.2200, L400.4800 #### Main Laboratory ([facility]) [address] [place] [address] Bjorn Washington MD Potassium [Moles/Vol] 3.4 mmol/L Low 3.6-5.0 [facility] Comment on above: Performed By: #### L 400.0202, L400.2200, L400.4800 #### Main Laboratory ([facility]) [address] [place], [facility]04 Bjorn Washington MD Sodium [Moles/Vol] 132 mmol/L Low 135-145 [facility] Comment on above: Performed By: #### L 400.0202, L400.2200, L400.4800 #### Main Laboratory ([facility]) [address] [place], [facility]04 Bjorn Washington MD Urea nitrogen [Mass/Vol] 7 mg/dL Normal 7-20 [facility] Comment on above: Performed By: #### L 400.0202, L400.2200, L400.4800 #### Main Laboratory ([facility]) [address] [place] [address] Bjorn Washington MD Anion gap [Moles/Vol] 8 mmol/L Normal 4-12 [facility] Comment on above: Performed By: #### L 702.1000 #### Main Laboratory ([facility]) [address] [place] [address] Bjorn Washington MD Calcium [Mass/Vol] 8.40 mg/dL Low 8.8-10.5 [facility] Comment on above: Performed By: #### L 702.1000 #### Main Laboratory ([facility]) [address] [place] [address] Bjorn Washington MD Chloride [Moles/Vol] 108 mmol/L Normal 101-111 [facility] Comment on above: Performed By: #### L 702.1000 #### Main Laboratory ([facility]) [address] [place] [address] Bjorn Washington MD CO2 [Moles/Vol] 19 mmol/L Low 21-32 [facility] Comment on above: Result Comment: Toi a: 12 on 01/31/22 Performed By: #### L 702.1000 #### Main Laboratory ([facility]) [address] [place] [address] Bjorn Washington MD Creatinine [Mass/Vol] 0.66 mg/dL Normal 0.60-1.30 [facility] Comment on above: Performed By: #### L 702.1000 #### Main Laboratory ([facility]) [address] [place] [address] Bjorn Washington MD GFR Calculation > 60 Normal [facility] Comment on above: Result Comment: Iap Displays Analyst mau Kidney Disease stages by NKDF Stage eGFR I >90 II 60-89 III 30-59 IV 15-29 V <15 or dialysis AGE(years) AVERAGE GFR 20-29 116 ml/min/1.73 square meters Note:This result is normalized to 1.73 square meter body surface area. Height and weight are not factored. Performed By: #### L 702.1000 #### Main Laboratory ([facility]) [address] [place] [address] Bjorn Washington MD Glucose [Mass/Vol] 179 mg/dL High 70-110 [facility] Comment on above: Performed By: #### L 702.1000 #### Main Laboratory ([facility]) [address] [place] [address] Bjorn Washington MD Potassium [Moles/Vol] 3.6 mmol/L Normal 3.6-5.0 [facility] Comment on above: Performed By: #### L 702.1000 #### Main Laboratory ([facility]) [address] [place] [address] Bjorn Washington MD Sodium [Moles/Vol] 135 mmol/L Normal 135-145 [facility] Comment on above: Performed By: #### L 702.1000 #### Main Laboratory ([facility]) [address] [place], [place] [address] Bjorn Washington MD Urea nitrogen [Mass/Vol] 8 mg/dL Normal 7-20 [facility] Comment on above: Performed By: #### L 702.1000 #### Main Laboratory ([facility]) [address] [place], [place] [address] Bjorn Washington MD Anion gap [Moles/Vol] 13 mmol/L High 4-12 [facility] Comment on above: Performed By: #### L 400.0202, L400.2200, L400.4800 #### Main Laboratory ([facility]) [address] [place], [facility]04 Bjorn Washington MD Calcium [Mass/Vol] 8.10 mg/dL Low 8.8-10.5 [facility] Comment on above: Performed By: #### L 400.0202, L400.2200, L400.4800 #### Main Laboratory ([facility]) [address] [place], [facility]04 Bjorn Washington MD Chloride [Moles/Vol] 112 mmol/L High 101-111 [facility] Comment on above: Performed By: #### L 400.0202, L400.2200, L400.4800 #### Main Laboratory ([facility]) [address] [place], [facility]04 Bjorn Washington MD CO2 [Moles/Vol] 12 mmol/L Low 21-32 [facility] Comment on above: Performed By: #### L 400.0202, L400.2200, L400.4800 #### Main Laboratory ([facility]) [address] [place] [address] Bjorn Washington MD Creatinine [Mass/Vol] 0.76 mg/dL Normal 0.60-1.30 [facility] Comment on above: Performed By: #### L 400.0202, L400.2200, L400.4800 #### Main Laboratory ([facility]) [address] [place] [address] Bjorn Washington MD GFR Calculation > 60 Normal [facility] Comment on above: Result Comment: Iap Displays Analyst mau Kidney Disease stages by NKDF Stage eGFR I >90 II 60-89 III 30-59 IV 15-29 V <15 or dialysis AGE(years) AVERAGE GFR 20-29 116 ml/min/1.73 square meters Note:This result is normalized to 1.73 square meter body surface area. Height and weight are not factored. Performed By: #### L 400.0202, L400.2200, L400.4800 #### Main Laboratory ([facility]) [address] [place] [address] Bjorn Washington MD Glucose [Mass/Vol] 175 mg/dL High 70-110 [facility] Comment on above: Performed By: #### L 400.0202, L400.2200, L400.4800 #### Main Laboratory ([facility]) [address] [place] [address] Bjorn Washington MD Potassium [Moles/Vol] 4.5 mmol/L Normal 3.6-5.0 [facility] Comment on above: Performed By: #### L 400.0202, L400.2200, L400.4800 #### Main Laboratory ([facility]) [address] [place] [address] Bjorn Washington MD Sodium [Moles/Vol] 137 mmol/L Normal 135-145 [facility] Comment on above: Performed By: #### L 400.0202, L400.2200, L400.4800 #### Main Laboratory ([facility]) [address] [place] [address] Bjorn Washington MD Urea nitrogen [Mass/Vol] 11 mg/dL Normal 7-20 [facility] Comment on above: Performed By: #### L 400.0202, L400.2200, L400.4800 #### Main Laboratory ([facility]) [address] [place], [facility]04 Bjorn Washington MD Anion gap [Moles/Vol] 17 mmol/L High 4-12 [facility] Comment on above: Performed By: #### L 702.1000 #### Main Laboratory ([facility]) [address] [place], [facility]04 Bjorn Washington MD Calcium [Mass/Vol] 8.40 mg/dL Low 8.8-10.5 [facility] Comment on above: Performed By: #### L 702.1000 #### Main Laboratory ([facility]) [address] [place], [facility]04 Bjorn Washington MD Chloride [Moles/Vol] 111 mmol/L Normal 101-111 [facility] Comment on above: Performed By: #### L 702.1000 #### Main Laboratory ([facility]) [address] [place], [facility]04 Bjorn Washington MD CO2 [Moles/Vol] 10 mmol/L Low 21-32 [facility] Comment on above: Performed By: #### L 702.1000 #### Main Laboratory ([facility]) [address] [place], [facility]04 Bjorn Washington MD Creatinine [Mass/Vol] 0.83 mg/dL Normal 0.60-1.30 [facility] Comment on above: Performed By: #### L 702.1000 #### Main Laboratory ([facility]) [address] [place] [address] Bjorn Washington MD GFR Calculation > 60 Normal [facility] Comment on above: Result Comment: Iap Displays Analyst mau Kidney Disease stages by NKDF Stage eGFR I >90 II 60-89 III 30-59 IV 15-29 V <15 or dialysis AGE(years) AVERAGE GFR 20-29 116 ml/min/1.73 square meters Note:This result is normalized to 1.73 square meter body surface area. Height and weight are not factored. Performed By: #### L 702.1000 #### Main Laboratory ([facility]) [address] [place] [address] Bjorn Washington MD Glucose [Mass/Vol] 212 mg/dL High 70-110 [facility] Comment on above: Performed By: #### L 702.1000 #### Main Laboratory ([facility]) [address] [place] [address] Bjorn Washington MD Potassium [Moles/Vol] 4.2 mmol/L Normal 3.6-5.0 [facility] Comment on above: Performed By: #### L 702.1000 #### Main Laboratory ([facility]) [address] [place] [address] Bjorn Washington MD Sodium [Moles/Vol] 138 mmol/L Normal 135-145 [facility] Comment on above: Performed By: #### L 702.1000 #### Main Laboratory ([facility]) [facility] [place] [address] Bjorn Washington MD Urea nitrogen [Mass/Vol] 12 mg/dL Normal 7-20 [facility] Comment on above: Performed By: #### L 702.1000 #### Main Laboratory ([facility]) [facility] [place] [address] Bjorn Washington MD Bilirubin Auto test strip Ql (U)on 01-31-2022 Bilirubin Ql (U) Negative Negative [facility] Work Phone: Blood hemoglobin A1/total he moglobinon 01-31-2022 Hemoglobin A1 (Bld) [Mass fraction] 9.8 % High [facility] Work Phone: Comment on above: Hemoglobin A1c value s greater than or equal to 6.5 percentare diagnostic for diabetes mellitus. Diagnosis should beconfirmed by repeat testing. In diabetic patients, [id number] should be discussed with healthcare provider.Test Performed by:[address] Director: [place] M.D. Ph.D.; CLIA# [id number] CBC with Differentialon 01-06 Abs Baso Count 100 /cmm Normal 0-200 [facility] Comment on above: Performed By: #### L 702.1000 #### Main Laboratory ([facility]) [address] [place] [address] Bjorn Washington MD Abs Eos Count 0 /cmm Normal 0-500 [facility] Comment on above: Performed By: #### L 702.1000 #### Main Laboratory ([facility]) [address] [place] [address] Bjorn Washington MD Abs Lymph Count 1600 /cmm Normal 3391-4744 [facility] Comment on above: Performed By: #### L 702.1000 #### Main Laboratory ([facility]) [address] [place] [address] Bjorn Washington MD Abs Story Count 1600 /cmm High 0-800 [facility] Comment on above: Performed By: #### L 702.1000 #### Main Laboratory ([facility]) [address] [place] [address] Bjorn Washington MD Abs Neut Count 69016 /cmm High 7065-0015 [facility] Comment on above: Performed By: #### L 702.1000 #### Main Laboratory ([facility]) [address] [place] [address] Bjorn Washington MD Basophils/100 WBC (Bld) 0.4 % Normal 0-2 L [facility] Comment on above: Performed By: #### L 702.1000 #### Main Laboratory ([facility]) [address] [place], [place] [address] Bjorn Washington MD EOS-Auto Diff 0.1 % Normal 0-6 [facility] Comment on above: Performed By: #### L 702.1000 #### Main Laboratory ([facility]) [address] [place], [place] [address] Bjorn Washington MD Erythrocyte distribution width (RBC) [Ratio] 14.6 % Normal 12.0-16.0 [facility] Comment on above: Performed By: #### L 702.1000 #### Main Laboratory ([facility]) [address] [place] [address] Bjorn Washington MD Hematocrit (Bld) [Volume fraction] 43.8 % Normal 35.0-44.0 [facility] Comment on above: Performed By: #### L 702.1000 #### Main Laboratory ([facility]) [address] [place] [address] Bjorn Washington MD Hemoglobin (Bld) [Mass/Vol] 14.8 g/dL Normal 12.0-15.0 [facility] Comment on above: Performed By: #### L 702.1000 #### Main Laboratory ([facility]) [address] [place] [address] Bjorn Washington MD Hypochromasia 1+ Normal [facility] Comment on above: Performed By: #### L 702.1000 #### Main Laboratory ([facility]) [address] [place] [address] Bjorn Washington MD Lymphocytes/100 WBC (Bld) 6.1 % Low 15-45 [facility] Comment on above: Performed By: #### L 702.1000 #### Main Laboratory ([facility]) [address] [place] [address] Bjorn Washington MD MCH (RBC) [Entitic mass] 26.7 pg Low 27.5-33.0 [facility] Comment on above: Performed By: #### L 702.1000 #### Main Laboratory ([facility]) [address] [place], [place] [address] Bjorn Washington MD MCHC (RBC) [Mass/Vol] 33.9 g/dL Normal 33.0-36.0 [facility] Comment on above: Performed By: #### L 702.1000 #### Main Laboratory ([facility]) [address] [place], [place] [address] Bjorn Washington MD MCV 79.0 CU ANDREW Low 80-97 [facility] Comment on above: Performed By: #### L 702.1000 #### Main Laboratory ([facility]) [address] [place], [place] [address] Bjorn Washington MD Story- Auto Diff 6.1 % Normal 2-10 [facility] Comment on above: Performed By: #### L 702.1000 #### Main Laboratory ([facility]) [address] [place], [place] [address] Bjorn Washington MD Neut-Auto Diff 87.3 % High 40-70 [facility] Comment on above: Performed By: #### L 702.1000 #### Main Laboratory ([facility]) [address] [place], [place] [address] Bjorn Washington MD NRBC-Auto 0.0 /100 WBC Normal <1 [facility] Comment on above: Performed By: #### L 702.1000 #### Main Laboratory ([facility]) [address] [place], [place] [address] Bjorn Washington MD Platelet Count 309 th/cmm Normal 150-400 [facility] Comment on above: Performed By: #### L 702.1000 #### Main Laboratory ([facility]) [address] [place], [place] [address] Bjorn Washington MD RBC 5.55 mil/cmm High 4.00-5.10 [facility] Comment on above: Performed By: #### L 702.1000 #### Main Laboratory ([facility]) [address] [place] [address] Bjorn Washington MD WBC 25.6 th/cmm High 4.4-10.5 [facility] Comment on above: Performed By: #### L 702.1000 #### Main Laboratory ([facility]) [address] [place] [address] Sinuses With Contraston 04-03-2021 CT Sinuses With Contrast [facility] Radiology Department Patient: JAYY NGUYEN [address] : 2000 Sex: Waq[place] [address] Location: [place] [address] Unit #: [id number] Ordering Phys: Good Calderon MD Exam Date: [...] by: Shane KNAPP,David Turpin on 01/31/221856 Normal [facility] Complete urinalysis with ref torito to cultureon 01-31-2022 Urinalysis complete W Reflex Culture panel (U) No [facility] Work Phone: Comment on above: Culture not done per lab protocol Consultation - ENTon 022 Consultation - ENT [facility] Medical Records Patient: JAYY NGUYEN [address] : 2000 [place], [place] [address] Location: ICU [phone] Unit #: [id number] Consultation - ENT Good Calderon MD Service [...] None Dictated by: Good Calderon MD on 01/31/221732 Entered by: Good Calderon MD on 01/31/221732 Report Signed by: Good Calderon MD on 01/31/221737 < > Report Signed by: on Normal [facility] HCO3 (BldV) [Moles/Vol]on HCO3 (Bld) [Moles/Vol] 10.4 mmol/L Low 23.0-28.0 L [facility] Work Phone: Hemoglobin A1Con 01-31-2022 Hgb A1C Normal 4.4-6.4 [facility] Comment on above: Result Comment: Vari ant detected - Specimen sent to [facility] for A1c testing. Performed By: #### L 400.0202, L400.2200, L400.4800 #### Main Laboratory ([facility]) [address] [place] [address] Bjorn Washington MD Hemoglobin [Mass/volume] in Urine by Automated test stripon 01-31-2022 Hemoglobin Auto test strip (U) [Mass/Vol] Negative Negative [facility] Work Phone: Ionized Calciumon 01-31-2022 Ionized Calcium 1.20 mmol/L Normal 1.15-1.29 [facility] Comment on above: Performed By: #### L 702.1000 #### Main Laboratory ([facility]) [address] [place] [address] Bjorn Washington MD Ketones Auto test strip (U) [Mass/Vol]on 01-31-2022 Ketones (U) [Mass/Vol] 10 mg/dL High Negative [facility] Work Phone: Magnesiumon 01-31-2022 Magnesium [Mass/Vol] 1.8 mg/dL Normal 1.8-2.5 [facility] Comment on above: Performed By: #### L 702.1000 #### Main Laboratory ([facility]) [address] [place] [address] Bjorn Washington MD Meter Glucoseon 01-31-2022 Glucose [Mass/Vol] 173 mg/dL High 70-110 [facility] Comment on above: Performed By: #### L 702.1000 #### Main Laboratory ([facility]) [address] [place] [address] Bjorn Washington MD Glucose [Mass/Vol] 146 mg/dL High 70-110 [facility] Comment on above: Performed By: #### L 400.0202, L400.2200, L400.4800 #### Main Laboratory ([facility]) [address] [place] [address] Bjorn Washington MD Glucose [Mass/Vol] 136 mg/dL High 70-110 [facility] Comment on above: Performed By: #### L 400.0202, L400.2200, L400.4800 #### Main Laboratory ([facility]) [address] [place] [address] Bjorn Washington MD Glucose [Mass/Vol] 163 mg/dL High 70-110 [facility] Comment on above: Performed By: #### L 702.1000 #### Main Laboratory ([facility]) [address] [place] [address] Bjorn Washington MD Glucose [Mass/Vol] 188 mg/dL High 70-110 [facility] Comment on above: Performed By: #### L 702.1000 #### Main Laboratory ([facility]) [address] [place] [address] Bjorn Washington MD Glucose [Mass/Vol] 170 mg/dL High 70-110 [facility] Comment on above: Performed By: #### L 702.1000 #### Main Laboratory ([facility]) [address] [place] [address] Bjorn Washington MD Glucose [Mass/Vol] 165 mg/dL High 70-110 [facility] Comment on above: Performed By: #### L 702.1000 #### Main Laboratory ([facility]) [address] [place] [address] Bjorn Washington MD Glucose [Mass/Vol] 164 mg/dL High 70-110 [facility] Comment on above: Performed By: #### L 702.1000 #### Main Laboratory ([facility]) [address] [place] [address] Bjorn Washington MD Glucose [Mass/Vol] 196 mg/dL High 70-110 [facility] Comment on above: Performed By: #### L 400.0202, L400.2200, L400.4800 #### Main Laboratory ([facility]) [address] [place] [address] Bjorn Washington MD Glucose [Mass/Vol] 185 mg/dL High 70-110 [facility] Comment on above: Performed By: #### L 400.0202, L400.2200, L400.4800 #### Main Laboratory ([facility]) [address] [place] [address] Bjorn Washington MD Glucose [Mass/Vol] 195 mg/dL High 70-110 [facility] Comment on above: Performed By: #### L 702.1000 #### Main Laboratory ([facility]) [address] [place] [address] Bjorn Washington MD Glucose [Mass/Vol] 191 mg/dL High 70-110 [facility] Comment on above: Performed By: #### L 702.1000 #### Main Laboratory ([facility]) [address] [place] [address] Bjorn Washington MD Glucose [Mass/Vol] 228 mg/dL High 70-110 [facility] Comment on above: Performed By: #### L 702.1000 #### Main Laboratory ([facility]) [address] [place] [address] Bjorn Washington MD No Panel Informationon 01-31 Blood Gas Notified By Yes [facility] Work Phone: Blood Gas Patient Equipment Room Air [facility] Work Phone: Venous Blood pH 7.22 Low 7.31-7.41 [facility] Work Phone: Hemoglobin A1c See comment 4.4-6.4 [facility] Work Phone: Comment on above: Variant detected - S pecimen sent to [facility] for A1c testing. Ionized Calcium 1.20 mmol/L 1.15-1.29 [facility] Work Phone: Osmolality of Serum or Plasm aon 01-31-2022 Osmolality [Osmolality] 299 mOsm 270-300 L [facility] Work Phone: Osmolality, Serumon 02-01-20 22 Osmolality, Serum 299 mOsm Normal 270-300 [facility] Comment on above: Performed By: #### L 400.0202, L400.2200, L400.4800 #### Main Laboratory ([facility]) [address] [place] [address] Bjorn Washington MD Osmolality, Serum 297 mOsm Normal 270-300 [facility] Comment on above: Performed By: #### L 702.1000 #### Main Laboratory ([facility]) [address] [place] [address] Bjorn Washington MD Osmolality, Serum 298 mOsm Normal 270-300 [facility] Comment on above: Performed By: #### L 400.0202, L400.2200, L400.4800 #### Main Laboratory ([facility]) [address] [place] [address] Bjorn Washington MD Osmolality, Serum 309 mOsm High 270-300 [facility] Comment on above: Performed By: #### L 702.1000 #### Main Laboratory ([facility]) [address] [place], [facility]04 Bjorn Washington MD Other useful informationon 1 04-03-2021 Other useful information Vein [facility] Work Phone: Phosphoruson 01-31-2022 Phosphate [Mass/Vol] 1.3 mg/dL Low 2.4-4.7 [facility] Comment on above: Performed By: #### L 400.0202, L400.2200, L400.4800 #### [facility] CENTER) [address] [place], [facility]04 Bjorn Washington MD Phosphate [Mass/Vol] 1.5 mg/dL Low 2.4-4.7 [facility] Comment on above: Result Comment: Delt a: 2.1 on 01/31/22 Performed By: #### L 702.1000 #### Main Laboratory ([facility]) [address] [place] [address] Bjorn Washington MD Phosphate [Mass/Vol] 2.1 mg/dL Low 2.4-4.7 [facility] Comment on above: Performed By: #### L 400.0202, L400.2200, L400.4800 #### Main Laboratory ([facility]) [address] [place] [address] Bjorn Washington MD Phosphate [Mass/Vol] 2.3 mg/dL Low 2.4-4.7 [facility] Comment on above: Performed By: #### L 702.1000 #### Main Laboratory ([facility]) [address] [place] [address] Bjorn Washington MD Protein Auto test strip (U) [Mass/Vol]on 01-31-2022 Protein (U) [Mass/Vol] 10 mg/dL Negative [facility] Work Phone: Serum or plasma fasting gluc ose measurement (mass/volume)on 01-31-2022 Glucose post fast [Mass/Vol] 216 mg/dL High 70-110 [facility] Work Phone: Specific gravity Auto test s trip (U) [Rel density]on 01-31-2022 Specific gravity (U) [Rel density] >=1.030 1.000-1.035 [facility] Work Phone: Urinalysis w Micro Rflx Cult on 01-31-2022 Bacteria Trace Normal [facility] Comment on above: Order Comment: Urine Source Urine, Clean Catch Performed By: #### L 400.0202, L400.2200, L400.4800 #### Main Laboratory ([facility]) [address] [place] [address] Bjorn Washington MD Epi,Squamous 11-20 [facility] Comment on above: Order Comment: Urine Source Urine, Clean Catch Performed By: #### L 400.0202, L400.2200, L400.4800 #### Main Laboratory ([facility]) [address] [place] [address] Bjorn Washington MD Mucous Present [facility] Comment on above: Order Comment: Urine Source Urine, Clean Catch Performed By: #### L 400.0202, L400.2200, L400.4800 #### Main Laboratory ([facility]) [address] [place] [address] Bjorn Washington MD RBC 0-2 [facility] Comment on above: Order Comment: Urine Source Urine, Clean Catch Performed By: #### L 400.0202, L400.2200, L400.4800 #### Main Laboratory ([facility]) [address] [place], [place] [address] Bjorn Washington MD UA Reflex Culture No Normal [facility] Comment on above: Order Comment: Urine Source Urine, Clean Catch Result Comment: Cult ure not done per lab protocol Performed By: #### L 400.0202, L400.2200, L400.4800 #### Main Laboratory ([facility]) [address] [place] [address] Bjorn Washington MD WBC 0-5 Normal [facility] Comment on above: Order Comment: Urine Source Urine, Clean Catch Performed By: #### L 400.0202, L400.2200, L400.4800 #### Main Laboratory ([facility]) [address] [place], [place] [address] Bjorn Washington MD Yeast Present High [facility] Comment on above: Order Comment: Urine Source Urine, Clean Catch Performed By: #### L 400.0202, L400.2200, L400.4800 #### Main Laboratory ([facility]) [address] [place], [place] [address] Bjorn Washington MD Appearance (U) Clear Normal [facility] Comment on above: Order Comment: Urine Source Urine, Clean Catch Performed By: #### L 400.0202, L400.2200, L400.4800 #### Main Laboratory ([facility]) [address] [place], [place] [address] Bjorn Washington MD Bilirubin Ql (U) Negative Normal Negative [facility] Comment on above: Order Comment: Urine Source Urine, Clean Catch Performed By: #### L 400.0202, L400.2200, L400.4800 #### Main Laboratory ([facility]) [address] [place], [place] [address] Bjorn Washington MD Color (U) Yellow Normal [facility] Comment on above: Order Comment: Urine Source Urine, Clean Catch Performed By: #### L 400.0202, L400.2200, L400.4800 #### Main Laboratory ([facility]) [address] [place] [address] Bjorn Washington MD Glucose Ql (U) Negative Normal Negative [facility] Comment on above: Order Comment: Urine Source Urine, Clean Catch Performed By: #### L 400.0202, L400.2200, L400.4800 #### Main Laboratory ([facility]) [address] [place] [address] Bjorn Washington MD Ketones Ql (U) 10 mg/dL High Negative [facility] Comment on above: Order Comment: Urine Source Urine, Clean Catch Performed By: #### L 400.0202, L400.2200, L400.4800 #### Main Laboratory ([facility]) [address] [place] [address] Bjorn Washington MD Leukocytes Negative Normal Negative [facility] Comment on above: Order Comment: Urine Source Urine, Clean Catch Performed By: #### L 400.0202, L400.2200, L400.4800 #### Main Laboratory ([facility]) [address] [place] [address] Bjorn Washington MD Nitrite Ql (U) Negative Normal Negative [facility] Comment on above: Order Comment: Urine Source Urine, Clean Catch Performed By: #### L 400.0202, L400.2200, L400.4800 #### Main Laboratory ([facility]) [address] [place] [address] Bjorn Washington MD pH (U) 6.0 [pH] Normal 5.0-8.0 [facility] Comment on above: Order Comment: Urine Source Urine, Clean Catch Performed By: #### L 400.0202, L400.2200, L400.4800 #### Main Laboratory ([facility]) [address] [place] [address] Bjorn Washington MD Protein Ql (U) 10 mg/dL Normal Negative [facility] Comment on above: Order Comment: Urine Source Urine, Clean Catch Performed By: #### L 400.0202, L400.2200, L400.4800 #### Main Laboratory ([facility]) [address] [place], [place] [id number] Bjorn Washington MD Specific gravity (U) [Rel density] >=1.030 Normal 1.000-1.035 [facility] Comment on above: Order Comment: Urine Source Urine, Clean Catch Performed By: #### L 400.0202, L400.2200, L400.4800 #### Main Laboratory ([facility]) [address] [place] [address] Bjorn Washington MD Urobilinogen Normal Normal 0.2-1.0 [facility] Comment on above: Order Comment: Urine Source Urine, Clean Catch Performed By: #### L 400.0202, L400.2200, L400.4800 #### Main Laboratory ([facility]) [address] [place] [address] Bjorn Washington MD Urine appearance determinati onon 01-31-2022 Appearance (U) Clear [facility] Work Phone: Urine color determinationon 01-31-2022 Color (U) Yellow [facility] Work Phone: Urine glucose measurement by automated test strip (mass/volume)on 01-31-2022 Glucose Auto test strip (U) [Mass/Vol] Negative Negative [facility] Work Phone: [phone] Urine leukocytes count by au tomated test strip (number/volume)on 01-31-2022 WBC Auto test strip (U) [#/Vol] Negative Negative [facility] Work Phone: [phone] Urine mucus detection by aut omated methodon 01-31-2022 Mucus Auto Ql (U) Present [facility] Work Phone: Urine nitrite detection by a utomated test stripon 01-31-2022 Nitrite Auto test strip Ql (U) Negative Negative [facility] Work Phone: Urobilinogen Auto test strip (U) [Mass/Vol]on 01-31-2022 Urobilinogen (U) [Mass/Vol] Normal 0.2-1.0 [facility] Work Phone: Venous Blood Gaseson 022 ABG Device Room Air Normal [facility] Comment on above: Performed By: #### L 702.1000 #### Main Laboratory ([facility]) [address] [place] [address] Bjorn Washington MD ABG Draw Site Vein Normal [facility] Comment on above: Performed By: #### L 702.1000 #### Main Laboratory ([facility]) [address] [place] [address] Bjorn Washington MD HCO3 (Bld) [Moles/Vol] 10.4 mmol/L Low 23.0-28.0 [facility] Comment on above: Performed By: #### L 702.1000 #### Main Laboratory ([facility]) [address] [place] [address] Bjorn Washington MD Oxygen saturation in Blood 91 % Low 95-98 [facility] Comment on above: Performed By: #### L 702.1000 #### Main Laboratory ([facility]) [address] [place] [address] Bjorn Washington MD Unit Notified? Yes Normal [facility] Comment on above: Performed By: #### L 702.1000 #### Main Laboratory ([facility]) [address] [place], [place] [address] Bjorn Washington MD Venous Base Excess -17 mmol/L Low -2-3 [facility] Comment on above: Performed By: #### L 702.1000 #### Main Laboratory ([facility]) [address] [place] [address] Bjorn Washington MD Venous FiO2 21.00 Normal [facility] Comment on above: Performed By: #### L 702.1000 #### Main Laboratory ([facility]) [address] [place] [address] Bjorn Washington MD Venous pCO2 25 mmHg Low 41-51 [facility] Comment on above: Performed By: #### L 702.1000 #### Main Laboratory ([facility]) [address] [place] [address] Bjorn Washington MD Venous pH 7.22 Low 7.31-7.41 [facility] Comment on above: Performed By: #### L 702.1000 #### Main Laboratory ([facility]) [address] [place] [address] Bjorn Washington MD Venous pO2 70 mmHg Low 80-105 [facility] Comment on above: Performed By: #### L 702.1000 #### Main Laboratory ([facility]) [address] [place] [address] Bjorn Washington MD Venous blood Amanda indexo n 01-31-2022 Amanda index (BldV+Inhl gas) [Ratio] 21.00 [facility] Work Phone: Venous blood base excess by calculationon 01-31-2022 Base excess Calc (BldV) [Moles/Vol] -17 mmol/L Low -2-3 [facility] Work Phone: Venous blood oxygen saturati on (mass fraction)on 01-31-2022 Oxygen saturation in Venous blood 91 % Low 95-98 [facility] Work Phone: Venous blood partial pressur e of carbon dioxide measurement adjusted to patients actuon 01-31-2022 CO2 adjusted to patient's actual temperature (BldV) [Partial pressure] 25 mmHg Low 41-51 [facility] Work Phone: Venous blood partial pressur e of oxygen measurement with patient temperature corrrecton 01-31-2022 Oxygen adjusted to patient's actual temperature (BldV) [Partial pressure] 70 mmHg Low 80-105 [facility] Work Phone: pH Auto test strip (U)on pH (U) 6.0 [pH] 5.0-8.0 [facility] Work Phone: PAP ACOG PANEL 2: 21 to 29on 06-27-2021 . . Normal [facility] Comment on above: Performed By: #### [id number] #### [facility] [address] [place] [address] Dr. Ute Adame Age Gdln ACOG Testing - [facility] Comment on above: Performed By: #### [id number] #### [facility] [address] [place] [address] Dr. Ute Adame DIAGNOSIS: Comment [facility] Comment on above: Result Comment: NEGA TIVE FOR INTRAEPITHELIAL LESION OR MALIGNANCY. CELLULAR CHANGES ASSOCIATED WITH INFLAMMATION ARE PRESENT. Performed By: #### [id number] #### [facility] [address] [place] [address] Dr. Ute Adame Methodology: Comment [facility] Comment on above: Result Comment: This liquid based ThinPrep(R) pap test was screened with the use of an image guided system. Performed By: #### [id number] #### [facility] [address] [place] [address] Dr. Ute Adame Note: Comment [facility] Comment on above: Result Comment: The Pap smear is a screening test designed to aid in the detection of premalignant and malignant conditions of the uterine cervix. It is not a diagnostic procedure and should not be used as the sole means of detecting cervical cancer. Both false-positive and false-negative reports do occur. . Performed By: #### [id number] #### [facility] [address] [place] [address] Dr. Ute Adame Performed by: Comment Normal [facility] Comment on above: Result Comment: Danielle Alcaraz, Heavy Equipment Engine Mechanic (ASCP) Performed By: #### [id number] #### [facility] [address] [place], [place] [address] Dr. Ute Adame Reflex Criteria: Comment Normal [facility] Comment on above: Result Comment: The HPV DNA reflex criteria were not met with this specimen result therefore, no HPV testing was performed. . Performed By: #### [id number] #### [facility] [address] [place], [place] [address] Dr. Ute Adame Specimen adequacy: Comment Normal [facility] Comment on above: Result Comment: Sati sfactory for evaluation. Endocervical and/or squamous metaplastic cells (endocervical component) are present. Performed By: #### [id number] #### [facility] [address] [place], [place] [address] Dr. Ute Adame Vital Signs Date Time Vital Sign Value Performing Clinician Faci lity 02-01-2022 19:27-0500 Body temperature 98 [degF] Physician None Work Phone: [facility] Work Phone: 02-01-2022 19:27-0500 Diastolic blood pressure 77 mm[Hg] Physician None Work Phone: [facility] Work Phone: 02-01-2022 19:27-0500 Heart rate 75 /min Physician None Work Phone: [facility] Work Phone: 02-01-2022 19:27-0500 Respiratory rate 19 /min Physician None Work Phone: [facility] Work Phone: 02-01-2022 19:27-0500 SaO2% (BldA) [Mass fraction] 99 % Physician None Work Phone: [facility] Work Phone: 02-01-2022 19:27-0500 Systolic blood pressure 133 mm[Hg] Physician None Work Phone: [facility] Work Phone: 02-01-2022 00:16-0500 Body weight 83.2 kg Physician None Work Phone: [facility] Work Phone: 01-31-2022 04:13-0500 Body height 162.56 cm Physician None Work Phone: [facility] Work Phone: 01-31-2022 04:13-0500 Body mass index (BMI) [Ratio] 29.7 kg/m2 Physician None Work Phone: [facility] Work Phone: Encounters Encounter Date Encounter Type Care Provider Facility Start: 02-04-2023 End: 02-05-2023 Evaluation and management of inpatient RO TABARES [facility] Start: 02-01-2023 End: 02-10-2023 Evaluation and management of inpatient SOPHIE HUDSON [facility] Start: 02-01-2023 End: 02-01-2023 Orders Only 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 [facility] Comment on above: Pre-existing type 1 diabetes mellitus during in third trimester (Primary Dx); History of stillbirth in patient in third trimester, antepartum Start: 01-31-2023 End: 01-31-2023 ambulatory LINDA OLY Not Available Start: 01-23-2023 End: 01-24-2023 ambulatory LINDA R [facility] Start: 01-17-2023 End: 01-17-2023 ambulatory CAITLIN BHATIA Not Available Start: 01-03-2023 End: 01-03-2023 ambulatory LINDA OLY Not Available Start: 12-20-2022 End: 12-20-2022 ambulatory CAITLIN BHATIA Not Available Start: 01-31-2022 End: 02-01-2022 Evaluation and management of inpatient None Facility:[facility] Start: 01-31-2022 End: 02-01-2022 Evaluation and management of inpatient Physician None Work Phone: [facility] Start: 06-21-2021 End: 06-21-[address] TAMI ALVAREZ Facility:H1 Procedures Date Procedure Procedure Detail Performing Clinician Start: 01-30-2023 Adult depression screening assessment Janiazeferino Sina [facility] Start: 09-20-2022 Microscopic observat ion [Identifier] in Cervix by Cyto stain Janiazeferino Murphys [facility] Start: 01-31-2022 Blood count hemoglobin Comment on above: Order Comment: Urine Source Urine, Clean Catch Performed By: #### L 400.0202, L400.2200, L400.4800 #### Main Laboratory ([facility]) [address] [place] [address] Bjorn Washington MD Start: 01-31-2022 CT of paranasal sinu ses with contrast Physician None Work Phone: Start: 04-27-2021 Microalbumin [Mass/volume] in Urine by Test strip Anjali Sina [facility] Start: 10-24-2019 End: 06-02-2020 H/O: section Previous delivery, antepartum 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 Plan of Treatment Date Care Activity Detail Author Start: 03-25-2030 DTaP,Tdap and Td Vac cines (9 - Td or Tdap) DTaP,Tdap and Td Vaccines (9 - Td or Tdap) [facility] [employer] [facility] Start: 09-20-2025 Screening for malign ant neoplasm of cervix Pap Smear [facility] [employer] [facility] Start: 02-02-2024 End: 02-02-2024 US MFM with or without consult US MFM with or without consult Imaging Routine Pre-existing type 1 diabetes mellitus during in third trimester History of stillbirth in patient in third trimester, antepartum Expected: 02/02/2024 (Approximate), Expires: 02/02/2024 [facility] Work Phone: Comment on above: Expected: 02/02/2024 (Approximate), Expires: 02/02/2024 Start: 01-31-2024 Depression Screening Depression Scre ening [facility] Start: 01-24-2024 Adult BMI Screening Adult BMI Screen ing [facility] Start: 01-24-2024 Tobacco Screening Tobacco Screening [facility] Start: 02-19-2023 End: 02-19-2023 Patient encounter procedure 02/19/2023 11:00 AM EST Appointment [facility] [address] [place] [id number] [facility] Start: 02-06-2023 End: 02-06-2023 ambulatory 02/06/2023 1:00 PM EST Initial [facility] [address] [place] [id number] [facility] Start: 02-01-2023 End: 02-01-2023 Patient encounter procedure 02/01/2023 3:00 PM EST Office Visit [facility] [address] [place] [id number] Quinton Arita MD [address], [address] [place] [address] [id number] [facility] Start: 10-06-2022 Influenza vaccination Influenza Vacc ine [facility] Start: 04-27-2022 Urine screening for protein Urine Microalbumin [facility] Start: 02-01-2022 [facility] Work Phone: Start: 02-01-2022 Patient discharge [facility] Work Phone: Start: 02-01-2022 Patient transfer [facility] Work Phone: Start: 01-31-2022 Referral to ear, nos e and throat service [facility] Work Phone: Start: 01-31-2022 End: 01-31-2022 [facility] Work Phone: Start: 01-31-2022 Notification of physician [facility] Work Phone: Start: 01-31-2022 Catheterization of vein [facility] Work Phone: Start: 01-31-2022 Hospital admission, emergency, from emergency room [facility] Work Phone: Start: 01-31-2022 Vital signs measurements [facility] Work Phone: Start: 2018 Adult BMI Follow Up Plan Adult BMI Follow Up Plan [facility] Start: 2018 Diabetic foot examination Diabetic F oot Exam [facility] Start: 2000 COVID-19 Vaccine (#1) COVID-19 Vacci ne (#1) [facility] Start: 2000 Glaucoma screening Diabetic Op hthalmology Exam [facility] Bicarbonate [Moles/volume] in Blood [facility] Work Phone: Delta base, blood [facility] Work Phone: Measurement of venou s partial pressure of carbon dioxide [facility] Work Phone: Measurement of venou s partial pressure of oxygen [facility] Work Phone: Methicillin resistan t Staphylococcus aureus (MRSA) DNA [Presence] in Unspecified specimen by ROQUE with probe detection [facility] Work Phone: Methicillin resistan t Staphylococcus aureus [Presence] in Unspecified specimen by Organism specific culture [facility] Work Phone: Oxygen saturation in Venous blood [facility] Work Phone: Patient Education Tooth Abscess (DC) Diabetic Ketoacidosis (DC) [facility] Work Phone: Patient referral [facility] Work Phone: Vancomycin resistanc e Francisco gene [Presence] by Molecular method [facility] Work Phone: Immunizations Immunization Date Immunization Notes Care Provider Qamar calhoun 04-20-2020 measles, mumps and rubella virus vaccine Anjali Andino [facility] 03-25-2020 tetanus toxoid, redu jonathan diphtheria toxoid, and acellular pertussis vaccine, adsorbed Anjali Andino [facility] 10-24-2019 influenza, injectabl e, quadrivalent, preservative free [facility] 10-24-2019 influenza virus vacc ine, unspecified formulation [facility] 11-22-2018 influenza, injectabl e, quadrivalent, preservative free [facility] 03-22-2018 influenza virus vacc ine, unspecified formulation [facility] 03-20-2018 influenza, injectabl e, quadrivalent, preservative free [facility] 11-28-2016 influenza, injectabl e, quadrivalent, preservative free [facility] 11-28-2016 meningococcal polysaccharide (groups A, C, Y and W-135) diphtheria toxoid conjugate vaccine (MCV4P) [facility] 09-27-2015 hepatitis A vaccine, pediatric/adolescent dosage, 2 dose schedule [facility] 09-27-2015 Human Papillomavirus 9-valent vaccine [facility] 03-03-2014 Human Papillomavirus 9-valent vaccine [facility] 03-03-2014 tetanus toxoid, redu jonathan diphtheria toxoid, and acellular pertussis vaccine, adsorbed [facility] 12-02-2012 influenza, seasonal, injectable, preservative free [facility] 07-24-2012 hepatitis A vaccine, pediatric/adolescent dosage, 2 dose schedule [facility] 07-24-2012 meningococcal polysaccharide (groups A, C, Y and W-135) diphtheria toxoid conjugate vaccine (MCV4P) [facility] 07-24-2012 tetanus toxoid, redu jonathan diphtheria toxoid, and acellular pertussis vaccine, adsorbed [facility] 09-15-2004 diphtheria, tetanus toxoids and acellular pertussis vaccine [facility] 09-15-2004 measles, mumps and rubella virus vaccine [facility] 09-15-2004 poliovirus vaccine, inactivated [facility] 04-16-2002 diphtheria, tetanus toxoids and acellular pertussis vaccine, unspecified formulation [facility]2002 haemophilus influenz ae type b vaccine, conjugate unspecified formulation [facility] 04-16-2002 hepatitis B vaccine, pediatric or pediatric/adolescent dosage [facility] 04-16-2002 measles, mumps and rubella virus vaccine [facility] 04-16-2002 poliovirus vaccine, unspecified formulation [facility] 2000 diphtheria, tetanus toxoids and acellular pertussis vaccine, unspecified formulation [facility] 2000 haemophilus influenz ae type b conjugate and Hepatitis B vaccine [facility] 2000 poliovirus vaccine, inactivated [facility] diphtheria, tetanus toxoids and acellular pertussis vaccine, unspecified formulation [facility] 2000 pneumococcal conjuga te vaccine, 7 valent [facility] 2000 diphtheria, tetanus toxoids and acellular pertussis vaccine, unspecified formulation [facility] 2000 haemophilus influenz ae type b conjugate and Hepatitis B vaccine [facility] 2000 pneumococcal conjuga te vaccine, 7 valent [facility] 2000 poliovirus vaccine, inactivated [facility] Payers Date Payer Category Payer Private Health Insurance [facility] [id number] 2022-Present [phone] [address] [place] [address] [id number] 2022 Private Health Insurance [id number] 2017 Unknown [employer] OUT [employer] STATE PPO/TRUST [id number] 2017-Present [phone] [address] [place] [address] [id number] 2000 Unknown [id number] 2.16.840.1.340244.3.579. 2.593 2000 Unknown [id number] 2.16.840.1.854587.3.579. 2.1259 2000 Unknown [id number] 2.16.840.1.254862.3.579. 2.1259 2000 Unknown [id number] 2.16.840.1.904016.3.579. 2.1259 2000 Unknown [id number] 2.16.840.1.356000.3.579. 2.1259 2000 Unknown [id number] 2.16.840.1.056336.3.579. 2.1286 2000 Unknown [id number] 2.16.840.1.848614.3.579. 2.1286 2000 Unknown [id number] 2.16.840.1.308858.3.579. 2.1286 2000 Unknown [id number] 2.16.840.1.112989.3.579. 2.1286 2000 Unknown [id number] 2.16.840.1.456877.3.579. 2.1286 1959 Unknown [id number] 1959 Unknown [id number] Self-pay Unknown [id number] [id number]. 2.139 Social History Date Type Detail Facility Start: 01-31-2022 Tobacco smoking stat us MDIS Never smoked tobacco (finding) [facility] Work Phone: Start: 01-31-2022 None [facility] Work Phone: Start: 01-31-2022 < 1 pack per day [facility] Work Phone: Start: 01-31-2022 Yes [facility] Work Phone: Start: 01-31-2022 Nicotine Rouse [facility] Work Phone: Start: 2000 Sex Assigned At Female L [facility] Work Phone: Start: 07-22-2022 Tobacco smoking stat us MDIS Ex-smoker [facility] History of tobacco use Current smoker [facility] History of tobacco use Cigarette Smoker P [facility] History of tobacco use Tobacco U se Types Packs/Day Years Used Date Smoking Tobacco: Former Cigarettes 0 Vaping/E-cigarettes Smokeless Tobacco: Never [facility] Start: 07-22-2022 Tobacco use and exposure Smokeless tobacco non-user [facility] Start: 01-23-2023 Alcohol intake Ex-drinker (finding) [facility] Start: 10-11-2019 End: 02-17-2020 History of Social function [facility] Start: 10-11-2019 End: 02-17-2020 Social connection and isolation panel [facility] Do you belong to any clubs or organizations such as religion groups, unions, fraternal or athletic groups, or school groups? No [facility] Are you now , , , , never or living with a partner? Never [facility] How hard is it for y ou to pay for the very basics like food, housing, medical care, and heating Not hard at all [facility] Do you feel stress - tense, restless, nervous, or anxious, or unable to sleep at night because your mind is troubled all the time - these days [OSQ] Not at all [facility] The thought of harmi ng myself has occurred to me Never [facility] Start: 12-18-2018 Alcohol Comment occassional [facility] Start: 06-23-[address] [facility] Start: 05-13-2018 Gender identity Identifies as female gender (finding) [facility] Start: 05-13-2018 Sexual orientation Heterosexual (fin ding) [facility] NEGATED: Highlighted row [facility] Work Phone: Medical Equipment Procedure Code Equipment Code Equipment Origin al Text Equipment Identifier Dates 1 strip by miscellaneous route every 4 (four) hours as needed (illness or hyperglycemia). [id number] Start: 08-30-2022 Use in case of p ump failure [id number] Start: 09-27-2022 Accu-Chek Fastcl ix Lancets- Use to test blood glucose 8 times daily as directed. [id number] Start: 08-30-2022 BD Nettie Pen Need les Use as directed to give insulin injections via insulin pen up to 8 times daily [id number] Start: 05-31-2022 5 injections daily [id number] Start: 08-30-2022 Goals Date Patient Goal Desired Activity /State Personal health goal Comment on above: Formatting of this n ote might be different from the original. Evaluation of progress towards goal: Safe dc transition from hospital to home. Functional Status Date Assessment Result Facility 01-31-2022 Functional status Yes [facility] Work Phone: Mental Status Date Assessment Result Facility 01-31-2022 Cognitive function Oriented to P erson, Place and Time [facility] Work Phone: Discharge summary note 02-01-2022 Note Date & Type Note Facility 02-01-2022 Note [facility] Medical Records Patient: JAYY NGUYEN. : [address], [place] [address] Location: ICU [phone] Unit #: [id number] Discharge Summary Tee Buck PA-C Patient Information [...] Reconciliation: New amoxicilli (more content not included)... [facility] History and physical note 01-31-2022 Note Date & Type Note Facility 01-31-2022 Note [facility] Medical Records Patient: JAYY NGUYEN. : [address], [place] [address] Location: ICU [phone] [id number]: [id number] and Physical Jeo Ulloa CNP Date of Entry Into Hospital: [...] at 150 ml/h (more content not included)... [facility] Evaluation note Note Date & Type Note Facility Evaluation note Diagnosis Onset Date Dental infection acute Diabetes type I acute Diabetic ketoacidosis acute [facility] Work Phone: Evaluation note Note Date & Type Note Facility Evaluation note Diagnosis Onset Date Dental infection acute Diabetes type I acute Diabetic ketoacidosis resolv ed [facility] Work Phone: Evaluation note Note Date & Type Note Facility Evaluation note Diagnosis Pre-existing type 1 diabetes mellitus during in third trimester- Primary History of stillbirth in patient in third trimester, antepartum documented in this encounter [facility] Hospital Discharge instructions Note Date & Type Note Facility Hospital Discharge instructions Additional Instructions Activity: No restrictions Diet: No restrictions Driving instructions: No driving restrictions Bathing Instructions: No restrictions Follow Up Labs/X Rays/Procedures after discharge: [facility] Work Phone: Instructions Note Date & Type Note Facility Instructions Not on filedocumented in this en counter [facility] Summary Purpose Family History No Family History Records Found Relationship Condition Age at Onset Recorded Date/T john Not Specified No pertinent family history Unknown Advance Directives No Advanced Directives Records Found Advance Directive Response Recorded Date/ Time [facility] DNR Comfort Care No Directive, No SS Referral February 01, 2022 1:55pm [facility] DNR Comfort Ca re Arrest No Directive, No SS Referral February 01, 2022 1:55p m Living Will Unknown January 31, 2 022 4:13am Durable Power of Veterinary Meat [employer] [facility] Care No Directive, No SS Referral February [...] patient in third trimester, antepartum Procedures US MFM with or without consult Eliane Slaughter MD [address] [place] [address] [facility] [address] [place] [address] Referral ID Status Reason Start Date Expiration Date V isits Requested Visits Authorized [id number] Pending Review 02/01/2023 02/01/2024 1 1 Additional Source Comments INFORMATION SOURCE (unrecogn ized section and content) DATE CREATED AUTHOR 06/28/2021 [facility] DATE CREATED AUTHOR AUTHOR'S ORGANIZ ATION 02/01/2022 [facility] DATE CREATED AUTHOR AUTHOR'S ORGANIZ ATION 02/02/2023 [facility] EPIC DATE CREATED AUTHOR AUTHOR'S ORGANIZ ATION 02/11/2023 [facility] Goals (unrecognized section and content) Goals may be documented in a n alternate sectionGoals may be documented in an alternate section Care Teams (unrecognized sec tion and content) [employer]ant [employer] Relationship Specialty Start Date End Date Services, [id number] [place], [place] PCP - General Family Medicine 03/03/18 [...] BE BASED ON THE PRIMARY CLINICAL RECORDS. [facility] [employer] [facility]. provides no warranty or guarantee of the accuracy or completeness of information in this document.
[2023-02-13 11:52] VITALS: BP 129/66; PULSE 96
== END 2023-02-13 12:30 | disposition home or self-care (01) ==
LOC: US 11:19 → FBC 11:29
PROVIDERS: Visit Provider Obstetrics & Gynecology
DX: Z34.93 Encounter for supervision of normal pregnancy, unspecified, third trimester (principal); Z3A.35 35 weeks gestation of pregnancy; E10.69 Type 1 diabetes mellitus with other specified complication
CPT/HCPCS: 76818

== ENCOUNTER 2023-02-14 07:01 | Outpatient (OUT) | payer BC, OTHER, SELFPAY ==
--- NOTE | 2023-02-14 | US_ITS ---
[address] [address] Patient Name: JAYY NGUYEN MRN: [id number] date: 2000 Sex: F Assigned Patient Location: [facility] Current Patient Location: [facility] Accession/Order Number: [id number] Exam Date: 02/14/2023 10:25 Report Date: 02/14/2023 10:47 At the request of: LINDA ALDRIDGE Procedure: US OB amniotic fluid vol EXAMINATION: US OB amniotic fluid vol HISTORY: OLIGOHYDRAMNIOS COMPARISON: Ultrasound OB biophysical 02/13/2023 TECHNIQUE: Limited sonographic examination for amniotic fluid volume FINDINGS: Presentation: Cephalic Heart rate: 141 bpm Amniotic fluid: 11.9 cm (normal range). GA: 35 weeks 5 days JULIANO: 03/16/2023 US/US OB amniotic fluid vol IMPRESSION: 1. Single live intrauterine . 2. Amniotic fluid volume is within normal range; improved compared to prior study. Electronically authenticated by: TEMITOPE HERNANDEZ Date: 02/14/2023 10:47
--- OUTSIDE RECORDS SUMMARY | 2023-02-14 07:04 | XMS_ITS | CCD ---
Author Name Unknown Address [address] [place] [address] Organization [facility] Care Team Providers Care Scientific Programmer Analyst Name Role Phone DR TAMI ALVAREZ Admitting Unavailable ANTONIO, DR GARRETT Attending Unavailable MISC, DR FIELD Primary Care Unavailable ANTONIO, DR GARRETT Consulting Unavailable None, Physician Primary Care Provider [phone] MD Derek Baum Admit Provider MD Derek Baum Attending Provider AMANDA Buck Other Provider Unavailab MD Good [place] Other Provider None Primary Care Unavailable Good Calderon Consulting Unavailable Derek Baum Admitting Unavailable Derek Baum Attending Unavailable Tee Buck Consulting Unavailable Services, [facility] Care Provider LINDA ALDRIDGE Attending Unavailable CAITLIN BHATIA Attending Unavailable LINDA ALDRIDGE Attending Unavailable CAITLIN BHATIA Attending Unavailable QUINTON ARITA Attending Unavailable LINDA ALDRIDGE Referring Unavailable SERVICES, [facility] Unava ilable SOPHIE HUDSON Admitting Unavailable SOPHIE HUDSON Attending Unavailable SERVICES, [facility] Unava ilable CHARO DANIELLE Consulting Unavailable RO TABARES Attending Unavailable RO TABARES Referring Unavailable SERVICES, [facility] Unava ilable LINDA ALDRIDGE Referring Unavailable SERVICES, [facility] Unava ilable NGUYEN TILLEY Attending Unavailable LINDA ALDRIDGE Referring Unavailable SERVICES, [facility] Unava ilable Medications Current Medications [...] Sensor (Dexcom G6 Sensor) Device Active EACH [place] January 31, 2022 12:00am blood-glucose sensor (DEXCOM G7 SENSOR) device (1 source) Start: 05-31-2022 blood-glucose sensor (DEXCOM G7 SENSOR) device Change sensor every 10 days 3 each 05/31/2022 Active Blood-Glucose Transmitter (Dexcom G6 Transmitter) Device (2 sources) Start: 01-31-2022 Blood-Glucose Transmitter (Dexcom G6 Transmitter) Device Active EACH [place] January 31, 2022 12:00am doxylamine succinate 25 [...] diabetes mellitus with hypoglycemia and without coma ([facility]) Take 1 tablet (10 mg total) by mouth 3 (three) times a day. Three times a day before meals 30 tablet 2 10/02/2022 Active PNV 19-IRON PS,[id number] ORAL (1 source) take 1 tablet by mouth once daily PNV 19-IRON PS,UFQO-[id number]-QJV ORAL Take 1 tablet by mouth Daily [...] 02-10-2023 Glucose [Mass/Vol] 89 mg/dL Normal 65-99 [facility] Glucose [Mass/Vol] 107 mg/dL High 65-99 [facility] Glucose [Mass/Vol] 70 mg/dL Normal 65-99 [facility] Glucose [Mass/Vol] 85 mg/dL Normal 65-99 [facility] Glucose [Mass/Vol] 59 mg/dL Low 65-99 [facility] Glucose [Mass/Vol] 42 mg/dL Critically low 65-99 [facility] Glucose [Mass/Vol] 131 mg/dL High 65-99 [facility] Glucose Glucometer (BldC) [M ass/Vol]on 02-09-2023 Glucose [Mass/Vol] 206 mg/dL High 65-99 [facility] Glucose [Mass/Vol] 117 mg/dL High 65-99 [facility] Glucose [Mass/Vol] 113 mg/dL High 65-99 [facility] Glucose Glucometer (BldC) [M ass/Vol]on 02-08-2023 Glucose [Mass/Vol] 134 mg/dL High 65-99 [facility] Glucose [Mass/Vol] 162 mg/dL High 65-99 [facility] Glucose [Mass/Vol] 152 mg/dL High 65-99 [facility] Glucose [Mass/Vol] 73 mg/dL Normal 65-99 [facility] Glucose Glucometer (BldC) [M ass/Vol]on 02-07-2023 Glucose [Mass/Vol] 156 mg/dL High 65-99 [facility] Glucose [Mass/Vol] 118 mg/dL High 65-99 [facility] Glucose [Mass/Vol] 145 mg/dL High 65-99 [facility] Glucose [Mass/Vol] 119 mg/dL High 65-99 [facility] Glucose [Mass/Vol] 54 mg/dL Low 65-99 [facility] Glucose [Mass/Vol] 50 mg/dL Critically low 65-99 [facility] STREP B SCREEN CULTUREon S. agalactiae Org specific cx Ql (Vag+Rectum) CULTURE RESULTS NEGATIVE FOR GROUP B STREPTOCOCCUS BY NUCLEIC ACID AMPLIFICATION Normal [facility] Comment on above: Performed By: #### 6 873-4, CMP, CBCA #### [facility] ([id number]) [address], [address] [place] [address] Glucose Glucometer (BldC) [M ass/Vol]on 02-06-2023 Glucose [Mass/Vol] 86 mg/dL Normal 65-99 [facility] Glucose [Mass/Vol] 116 mg/dL High 65-99 [facility] Glucose [Mass/Vol] 137 mg/dL High 65-99 [facility] Glucose [Mass/Vol] 220 mg/dL High 65-99 [facility] Glucose [Mass/Vol] 94 mg/dL Normal 65-99 [facility] Glucose [Mass/Vol] 47 mg/dL Critically low 65-99 [facility] Glucose [Mass/Vol] 39 mg/dL Critically low 65-99 [facility] Glucose Glucometer (BldC) [M ass/Vol]on 02-05-2023 Glucose [Mass/Vol] 155 mg/dL High 65-99 [facility] Glucose [Mass/Vol] 103 mg/dL High 65-99 [facility] Glucose [Mass/Vol] 84 mg/dL Normal 65-99 [facility] Glucose [Mass/Vol] 92 mg/dL Normal 65-99 [facility] Glucose [Mass/Vol] 61 mg/dL Low 65-99 [facility] Glucose [Mass/Vol] 50 mg/dL Critically low 65-99 [facility] Glucose Glucometer (BldC) [M ass/Vol]on 02-04-2023 Glucose [Mass/Vol] 103 mg/dL High 65-99 [facility] Glucose [Mass/Vol] 125 mg/dL High 65-99 [facility] Glucose [Mass/Vol] 112 mg/dL High 65-99 [facility] Glucose [Mass/Vol] 91 mg/dL Normal 65-99 [facility] Glucose [Mass/Vol] 71 mg/dL Normal 65-99 [facility] Glucose Glucometer (BldC) [M ass/Vol]on 12-30-2023 Glucose [Mass/Vol] 159 mg/dL High 65-99 [facility] Glucose [Mass/Vol] 115 mg/dL High 65-99 [facility] Glucose [Mass/Vol] 105 mg/dL High 65-99 [facility] Glucose Glucometer (BldC) [M ass/Vol]on 02-02-2023 Glucose [Mass/Vol] 140 mg/dL High 65-99 [facility] Glucose [Mass/Vol] 125 mg/dL High 65-99 [facility] Glucose [Mass/Vol] 135 mg/dL High 65-99 [facility] Glucose [Mass/Vol] 107 mg/dL High 65-99 [facility] Glucose [Mass/Vol] 145 mg/dL High 65-99 [facility] Glucose [Mass/Vol] 188 mg/dL High 65-99 [facility] POTASSIUMon 02-02-2023 Potassium [Moles/Vol] 4.0 mmol/L Normal 3.5-5.0 [facility] Comment on above: Performed By: #### 2 823-3 ####[facility] ([id number])[address], [address] [place] [address] Potassium [Moles/Vol] 3.6 mmol/L Normal 3.5-5.0 [facility] Comment on above: Performed By: #### 2 823-3 #### [facility] ([id number]) [address], [address] [place] [address] Beta hydroxybutyrate [Moles/ Vol]on 02-01-2023 BetaHydroxybutyrate 0.80 mmol/L High 0.02-0.27 [facility] Comment on above: Performed By: #### 6 873-4, CMP, CBCA #### [facility] ([id number]) [address], [address] [place] [address] CBC AND AUTO DIFFon 02-02-20 ABSOLUTE BASOPHIL 0.0 X10E9/L Normal 0.0-0.2 [facility] Comment on above: Performed By: #### 6 873-4, CMP, CBCA #### [facility] ([id number]) [address], [address] [place] [address] ABSOLUTE NEUTROPHIL 11.4 X10E9/L High 1.5-6.6 [facility] Comment on above: Performed By: #### 6 873-4, CMP, CBCA #### [facility] ([id number]) [address], [address] [place] [address] Basophils/100 WBC (Bld) 0.2 % Normal [facility] Comment on above: Performed By: #### 6 873-4, CMP, CBCA #### [facility] ([id number]) [address], [address] [place] [address] Eosinophils (Bld) [#/Vol] 0.1 10*3/uL Normal 0.0-0.4 [facility] Comment on above: Performed By: #### 6 873-4, CMP, CBCA #### [facility] ([id number]) [address], [address] [place] [address] Eosinophils/100 WBC (Bld) 0.4 % Normal [facility] Comment on above: Performed By: #### 6 873-4, CMP, CBCA #### [facility] ([id number]) [address], [address] [place] [address] Erythrocyte distribution width (RBC) [Ratio] 13.5 % Normal 11.5-15.0 [facility] Comment on above: Performed By: #### 6 873-4, CMP, CBCA #### [facility] ([id number]) [address], [address] [place] [address] Hematocrit (Bld) [Volume fraction] 33.0 % Low 35-47 [facility] Comment on above: Performed By: #### 6 873-4, CMP, CBCA #### [facility] ([id number]) [address], [address] [place] [address] Hemoglobin (Bld) [Mass/Vol] 11.5 g/dL Low 11.7-15.5 [facility] Comment on above: Performed By: #### 6 873-4, CMP, CBCA #### [facility] ([id number]) [address], [address] [place] [address] Lymphocytes (Bld) [#/Vol] 1.2 10*3/uL Normal 1.0-3.5 [facility] Comment on above: Performed By: #### 6 873-4, CMP, CBCA #### [facility] ([id number]) [address], [facility] [address] [place] [address] Lymphocytes/100 WBC (Bld) 8.7 % Normal [facility] Comment on above: Performed By: #### 6 873-4, CMP, CBCA #### [facility] ([id number]) [address], [facility] [address] [place] [address] MCH (RBC) [Entitic mass] 27.6 pg Normal 27-34 [facility] Comment on above: Performed By: #### 6 873-4, CMP, CBCA #### [facility] ([id number]) [address], [facility] [address] [place] [address] MCHC (RBC) [Mass/Vol] 34.8 g/dL Normal 32-36 [facility] Comment on above: Performed By: #### 6 873-4, CMP, CBCA #### [facility] ([id number]) [address], [facility] [address] [place] [address] MCV (RBC) [Entitic vol] 79 fL Low 80-100 P [facility] Comment on above: Performed By: #### 6 873-4, CMP, CBCA #### [facility] ([id number]) [address], [address] [place] [address] Monocytes (Bld) [#/Vol] 0.6 10*3/uL Normal 0-0.9 [facility] Comment on above: Performed By: #### 6 873-4, CMP, CBCA #### [facility] ([id number]) [address], [address] [place] [address] Monocytes/100 WBC (Bld) 4.5 % Normal [facility] Comment on above: Performed By: #### 6 873-4, CMP, CBCA #### [facility] ([id number]) [address], [facility] [address] [place] [address] Neutrophils/100 WBC (Bld) 86.2 % Normal [facility] Comment on above: Performed By: #### 6 873-4, CMP, CBCA #### [facility] ([id number]) [address], [address] [place] [address] Platelet mean volume (Bld) [Entitic vol] 9.4 fL Normal 7-12 [facility] Comment on above: Performed By: #### 6 873-4, CMP, CBCA #### [facility] ([id number]) [address] [place] [address] Platelets (Bld) [#/Vol] 211 10*3/uL Normal 150-450 [facility] Comment on above: Performed By: #### 6 873-4, CMP, CBCA #### [facility] ([id number]) [address], [address] [place] [address] RBC COUNT 4.16 X10E12/L Normal 3.80-5.20 [facility] Comment on above: Performed By: #### 6 873-4, CMP, CBCA #### [facility] ([id number]) [address], [address] [place] [address] WBC (Bld) [#/Vol] 13.2 10*3/uL High 4.0-11.0 [facility] Comment on above: Performed By: #### 6 873-4, CMP, CBCA #### [facility] ([id number]) [address], [address] [place] [address] COMPREHENSIVE METABOLIC PANE Geoffrey 02-01-2023 Albumin [Mass/Vol] 3.3 g/dL Normal 3.2-5.3 [facility] Comment on above: Performed By: #### 6 873-4, CMP, CBCA #### [facility] ([id number]) [address], [address] [place] [address] ALP [Catalytic activity/Vol] 127 U/L Normal 39-130 [facility] Comment on above: Performed By: #### 6 873-4, CMP, CBCA #### [facility] ([id number]) [address], [address] [place] [address] ALT [Catalytic activity/Vol] 13 U/L Normal 0-31 [facility] Comment on above: Performed By: #### 6 873-4, CMP, CBCA #### [facility] ([id number]) [address], [address] [place] [address] Anion gap [Moles/Vol] 9 mmol/L Normal 5-15 [facility] Comment on above: Performed By: #### 6 873-4, CMP, CBCA #### [facility] ([id number]) [address], [address] [place] [address] AST [Catalytic activity/Vol] 19 U/L Normal 0-41 [facility] Comment on above: Performed By: #### 6 873-4, CMP, CBCA #### [facility] ([id number]) [address], [address] [place] [address] Bilirubin [Mass/Vol] 0.7 mg/dL Normal 0.3-1.2 [facility] Comment on above: Performed By: #### 6 873-4, CMP, CBCA #### [facility] ([id number]) [address], [address] [place] [address] Calcium [Mass/Vol] 8.1 mg/dL Low 8.5-10.5 [facility] Comment on above: Performed By: #### 6 873-4, CMP, CBCA #### [facility] ([id number]) [address] [place] [address] Chloride [Moles/Vol] 103 mmol/L Normal 98-109 [facility] Comment on above: Performed By: #### 6 873-4, CMP, CBCA #### [facility] ([id number]) [address], [address] [place] [address] CO2 [Moles/Vol] 22 mmol/L Normal 22-32 [facility] Comment on above: Performed By: #### 6 873-4, CMP, CBCA #### [facility] ([id number]) [address], [facility] [address] [place] [address] Creatinine [Mass/Vol] 0.58 mg/dL Normal 0.40-1.00 [facility] Comment on above: Result Comment: METH OD TRACEABLE TO IDMS STANDARD Performed By: #### 6 873-4, CMP, CBCA #### [facility] ([id number]) [address] [place] [address] eGFR (CKD-EPI) NON-RACE DEPENDENT >90 Normal >59 [facility] Comment on above: Result Comment: Reported eGFR is based on the CKD-EPI 2020 equation that does not use a race coefficient. Performed By: #### 6 873-4, CMP, CBCA #### [facility] ([id number]) [address] [place] [address] Glucose [Mass/Vol] 158 mg/dL High 65-99 [facility] Comment on above: Performed By: #### 6 873-4, CMP, CBCA #### [facility] ([id number]) [address], [address] [place] [address] Potassium [Moles/Vol] 3.3 mmol/L Low 3.5-5.0 [facility] Comment on above: Performed By: #### 6 873-4, CMP, CBCA #### [facility] ([id number]) [address], [address] [place] [address] Protein [Mass/Vol] 6.2 g/dL Normal 6.0-8.0 [facility] Comment on above: Performed By: #### 6 873-4, CMP, CBCA #### [facility] ([id number]) [address], [address] [place] [address] Sodium [Moles/Vol] 134 mmol/L Normal 134-146 [facility] Comment on above: Performed By: #### 6 873-4, CMP, CBCA #### [facility] ([id number]) [address], [address] [place] [address] Urea nitrogen [Mass/Vol] 9 mg/dL Normal 5-23 [facility] Comment on above: Performed By: #### 6 873-4, CMP, CBCA #### [facility] ([id number]) [address], [address] [place] [address] Glucose Glucometer (BldC) [M ass/Vol]on 02-01-2023 Glucose [Mass/Vol] 153 mg/dL High 65-99 [facility] URINALYSISon 02-01-2023 Bilirubin Ql (U) Negative Normal NEG [facility] BLOOD/HGB Negative Normal NEG [facility] Color (U) YELLOW Normal YELLOW [facility] Glucose Ql (U) 1000 mg/dL Abnormal NEG [facility] Ketones Ql (U) 150 mg/dL Abnormal NEG [facility] Leukocyte esterase Test strip Ql (U) Negative Normal NEG [facility] Comment on above: Result Comment: HIGH CONCENTRATIONS OF GLUCOSE MAY DECREASE THE REACTIVITY OF THE DIPSTICK LEUKOCYTE TEST PAD. MUCOUS PRESENT Abnormal NONE [facility] Nitrite Ql (U) Negative Normal NEG [facility] pH (U) 6.0 [pH] Normal 5.0-8.5 [facility] Protein Ql (U) 30 mg/dL Abnormal NEG [facility] R.B.CELLS 1 /hpf Normal 0-5 [facility] Specific gravity (U) [Rel density] 1.030 Normal 1.003-1.035 [facility] SQUAMOUS EPITHELIUM 2 /hpf Normal 0-5 [facility] TURBIDITY CLEAR Normal CLEAR [facility] Urobilinogen (U) [Mass/Vol] mg/dL Normal <1.1 [facility] W.B.CELLS 4 /hpf Normal 0-5 [facility] Albumin [Mass/volume] in Ser um or Plasmaon 02-01-2022 Albumin [Mass/Vol] 3.5 g/dL 3.5-5.0 [facility] Work Phone: Basic Metabolic,Non-Fastingo n 02-01-2022 Anion gap [Moles/Vol] 7 mmol/L Normal 4-12 [facility] Comment on above: Performed By: #### L 400.0202, L400.2200, L495.4800 #### Main Laboratory ([facility]) [address] [place] [address] Bjorn Washington MD Calcium [Mass/Vol] 8.20 mg/dL Low 8.8-10.5 [facility] Comment on above: Performed By: #### L 400.0202, L400.2200, L400.4807 #### Main Laboratory ([facility]) [address] [place] [address] Bjorn Washington MD Chloride [Moles/Vol] 103 mmol/L Normal 101-111 [facility] Comment on above: Performed By: #### L 400.0202, L400.2200, L400.4800 #### Main Laboratory ([facility]) [address] [place] [id number] Bjorn Washington MD CO2 [Moles/Vol] 23 mmol/L Invalid Interpretation Code 21-32 [facility] Comment on above: Result Comment: Delt a: 17 on 02/01/22-316 Performed By: #### L 400.0202, L400.2200, L400.4800 #### Main Laboratory ([facility]) [address] [place] [address] Bjorn Washington MD Creatinine [Mass/Vol] 0.56 mg/dL Low 0.60-1.30 [facility] Comment on above: Performed By: #### L 400.0202, L400.2200, L400.4800 #### Main Laboratory ([facility]) [address] [place] [address] Bjorn Washington MD GFR Calculation > 60 Normal [facility] Comment on above: Result Comment: Warehouse Supervisor [employer]d Shift mau Kidney Disease stages by NKDF Stage eGFR I >90 II 60-89 III 30-59 IV 15-29 V <15 or dialysis AGE(years) AVERAGE GFR 20-29 116 ml/min/1.73 square meters Note:This result is normalized to 1.73 square meter body surface area. Height and weight are not factored. Performed By: #### L 400.0202, L400.2200, L400.4800 #### Main Laboratory ([facility]) [address] [place] [id number] Bjorn Washington MD Glucose [Mass/Vol] 224 mg/dL High 70-110 [facility] Comment on above: Performed By: #### L 400.0202, L400.2200, L400.4800 #### Main Laboratory ([facility]) [address] [place] [address] Bjorn Washington MD Potassium [Moles/Vol] 4.0 mmol/L Normal 3.6-5.0 [facility] Comment on above: Performed By: #### L 400.0202, L400.2200, L400.4800 #### Main Laboratory ([facility]) [address] [place] [address] Bjorn Washington MD Sodium [Moles/Vol] 133 mmol/L Low 135-145 [facility] Comment on above: Performed By: #### L 400.0202, L400.2200, L400.4800 #### Main Laboratory ([facility]) [address] [place] [address] Bjorn Washington MD Urea nitrogen [Mass/Vol] 3 mg/dL Low 7-20 [facility] Comment on above: Performed By: #### L 400.0202, L400.2200, L400.4800 #### Main Laboratory ([facility]) [address] [place] [address] Bjorn Washington MD Basophils Auto (Bld) [#/Vol] on 02-01-2022 Basophils (Bld) [#/Vol] 0 /cmm 0-200 L [facility] Work Phone: [phone] Basophils/100 WBC Auto (Bld) on 02-01-2022 Basophils/100 WBC (Bld) 0.4 % 0-2 L [facility] Work Phone: [phone] Blood anion gapon 02-01-2022 Anion gap (Bld) [Moles/Vol] 7 mmol/L 4-12 [facility] Work Phone: [phone] Blood coagulation panelon Blood coagulation panel 100 /cmm 0-500 L [facility] Work Phone: [phone] Blood hematocrit (volume fra ction)on 02-01-2022 Hematocrit (Bld) [Volume fraction] 35.9 % 35.0-44.0 [facility] Work Phone: Blood hemoglobin measurement (mass/volume)on 02-01-2022 Hemoglobin (Bld) [Mass/Vol] 13.0 g/dL 12.0-15.0 [facility] Work Phone: CBC with Differentialon 01-06 Abs Baso Count 0 /cmm Normal 0-200 [facility] Comment on above: Performed By: #### L 400.0202, L400.2200, L400.4800 #### Main Laboratory ([facility]) [address] [place], [place] [address] Bjorn Washington MD Abs Eos Count 100 /cmm Normal 0-500 [facility] Comment on above: Performed By: #### L 400.0202, L400.2200, L400.4800 #### Main Laboratory ([facility]) [address] [place], [place] [address] Bjorn Washington MD Abs Lymph Count 2100 /cmm Normal 1876-4087 [facility] Comment on above: Performed By: #### L 400.0202, L400.2200, L400.4800 #### Main Laboratory ([facility]) [address] [place], [place] [address] Bjorn Washington MD Abs [place] Count 600 /cmm Normal 0-800 [facility] Comment on above: Performed By: #### L 400.0202, L400.2200, L400.4800 #### Main Laboratory ([facility]) [address] [place], [facility] Bjorn Washington MD Abs Neut Count 8100 /cmm High 3531-3316 [facility] Comment on above: Performed By: #### L 400.0202, L400.2200, L400.4800 #### Main Laboratory ([facility]) [address] [place] [address] Bjorn Washington MD Basophils/100 WBC (Bld) 0.4 % Normal 0-2 L [facility] Comment on above: Performed By: #### L 400.0202, L400.2200, L400.4800 #### Main Laboratory ([facility]) [address] [place] [id number] Bjorn Washington MD EOS-Auto Diff 0.6 % Normal 0-6 [facility] Comment on above: Performed By: #### L 400.0202, L400.2200, L400.4800 #### Main Laboratory ([facility]) [address] [place] [id number] Bjorn Washington MD Erythrocyte distribution width (RBC) [Ratio] 14.2 % Normal 12.0-16.0 [facility] Comment on above: Performed By: #### L 400.0202, L400.2200, L400.4800 #### Main Laboratory ([facility]) [address] [place] [id number] Bjorn Washington MD Hematocrit (Bld) [Volume fraction] 35.9 % Normal 35.0-44.0 [facility] Comment on above: Performed By: #### L 400.0202, L400.2200, L400.4800 #### Main Laboratory ([facility]) [address] [place] [address] Bjorn Washington MD Hemoglobin (Bld) [Mass/Vol] 13.0 g/dL Normal 12.0-15.0 [facility] Comment on above: Performed By: #### L 400.0202, L400.2200, L400.4800 #### Main Laboratory ([facility]) [address] [place] [address] Bjorn Washington MD Lymphocytes/100 WBC (Bld) 19.2 % Invalid Interpretation Code 15-45 [facility] Comment on above: Result Comment: Delt a: 6.1 on 01/31/22-0530 Performed By: #### L 400.0202, L400.2200, L400.4800 #### Main Laboratory ([facility]) [address] [place] [address] Bjorn Washington MD MCH (RBC) [Entitic mass] 27.5 pg Normal 27.5-33.0 [facility] Comment on above: Performed By: #### L 400.0202, L400.2200, L400.4800 #### Main Laboratory ([facility]) [address] [place] [address] Bjorn Washington MD MCHC (RBC) [Mass/Vol] 35.7 g/dL Normal 33.0-36.0 [facility] Comment on above: Performed By: #### L 400.0202, L400.2200, L400.4800 #### Main Laboratory ([facility]) [address] [place], [facility] Bjorn Washington MD MCV 77.0 CU ANDREW Low 80-97 [facility] Comment on above: Performed By: #### L 400.0202, L400.2200, L400.4800 #### Main Laboratory ([facility]) [address] [place] [address] Bjorn Washington MD [place]- Auto Diff 5.6 % Normal 2-10 [facility] Comment on above: Performed By: #### L 400.0202, L400.2200, L400.4800 #### Main Laboratory ([facility]) [address] [place] [address] Bjorn Washington MD Neut-Auto Diff 74.2 % High 40-70 [facility] Comment on above: Performed By: #### L 400.0202, L400.2200, L400.4800 #### Main Laboratory ([facility]) [address] [place], [facility] Bjorn Washington MD NRBC-Auto 0.1 /100 WBC Normal <1 [facility] Comment on above: Performed By: #### L 400.0202, L400.2200, L400.4800 #### Main Laboratory ([facility]) [address] [place] [address] Bjorn Washington MD Platelet Count 249 th/cmm Normal 150-400 [facility] Comment on above: Performed By: #### L 400.0202, L400.2200, L400.4800 #### Main Laboratory ([facility]) [address] [place] [address] Bjorn Washington MD RBC 4.66 mil/cmm Normal 4.00-5.10 [facility] Comment on above: Performed By: #### L 400.0202, L400.2200, L400.4800 #### Main Laboratory ([facility]) [address] [place] [address] Bjorn Washington MD WBC 10.9 th/cmm High 4.4-10.5 [facility] Comment on above: Performed By: #### L 400.0202, L400.2200, L400.4800 #### Main Laboratory ([facility]) [address] [place] [address] Bjorn Washington MD Case Management Admissionon 02-01-2022 Case Management Admission [facility] Case Management Patient: JAYY NGUYEN [address] : [address] [place] [address] Location: ICU [phone] Unit #: [id number] Case Management Admission Nancy Huntley RN Service Date: 01/31/22 Case Mgmt Admission/Disch Plan - Patient Preferences AND Goals What is the patient's preference?: Services to be Determined Recommended acute discharge goals: Services to be Determined - Hospital Stay Day Day 1 Comment: 01/31/22 Pt is here for DKA/sepsis. Patient is type I diabetic. Pt has [employer] insurance. Awaiting ENT consulted for mouth abcess. Pt lives with her significant other and daughter. Pt is independent with ADLs and drives. Pt on Augmentin. Pt reports she has all supplies at home to manage DM including cont reader and insulin pump. Patient did not report a PCP but states she goes not [facility] in [place]. Office Asst: Nancy Huntley, RN Day 2 Comment: 02/01/22 Pt drowsy and fallimng asleep during conversation with CM during CM rounding, patient denies any homegoing service/dme needs at this time including HHC. Office Asst: Nancy Huntley, RN - Demographics Current Diagnosis(s): DKA. Sepsis Information Given by: Patient Primary Insurance: [employer] Secondary Insurance: [employer] Prescription Coverage: Yes Family/Caregiver Contact: Mi Nguyen Relationship: mother Does the patient have VA services?: No Does the patient have a [facility] provider?: No - Readmission Information Was the patient readmitted within the past 30 days?: No Where was the patient admitted from?: Home Does Patient have any Services in Place?: No - Healthcare Decisions Code Status Per Patient Request (Full Code, DNRCC, DNRCCA): Full Code Durable Power of Supervisor Pairing And Inspecting for Health Care: No Directive, No SS Referral [facility] DNR Comfort Care: No Directive, No SS Referral [place] DNR Comfort Care Arrest: No Directive, No SS Referral - Mental Status Prior Mental Status: Alert and Oriented Current Mental Status: Alert and Oriented - Living Situation Home Situation: Lives with Significant Other Home Type: Single Family Home Does the patient drive?: Yes - Support System Support System: Relatives, Friends - Skilled Days Has patient been in a senior living facility in past 60 days: No Have [...] No If Yes to either question, notify Lithograph Designer.: No - Discharge Plan Discharge Plan Discussed [...] Signed by: Nancy Huntley RN on 02/01/22 7541 < > Co-Signed by: on Normal [facility] Case Management Daily Noteon 02-01-2022 Case Management Daily Note [facility] Case Management Patient: JAYY NGUYEN [address] : [address] [place], [place] [address] Location: ICU [phone] Unit #: [id number] Case Management Daily Note Nancy Huntley RN Service Date: 02/01/22 Case Mgmt Daily Note - Plan of Care Office Asst Agrees with Attending and Consult Plan: Yes [...] [facility] [place]. Office Asst: Nancy Huntley, RN Day 2 Comment: 02/01/22 Pt drowsy and fallimng asleep during conversation with CM during CM rounding, patient denies any homegoing service/dme needs at this time including HHC. Office Asst: Nancy Huntley, RN - Transportation Mode of [...] 1409 < > Co-Signed by: on Normal [facility] Comprehensive Metabolic Pane geoffrey 02-01-2022 Albumin [Mass/Vol] 3.5 g/dL Normal 3.5-5.0 [facility] Comment on above: Performed By: #### L 702.1000 #### Main Laboratory ([facility]) [address] [place] [address] Bjorn Washington MD Albumin/Globulin [Mass ratio] 1.3 {ratio} Low 1.5-2.5 [facility] Comment on above: Performed By: #### L 702.1000 #### Main Laboratory ([facility]) [address] [place] [address] Bjorn Washington MD Alk Phos 74 IU/L Normal 39-118 [facility] Comment on above: Performed By: #### L 702.1000 #### Main Laboratory ([facility]) [address] [place] [address] Bjorn Washington MD ALT [Catalytic activity/Vol] 8 U/L Low 10-40 [facility] Comment on above: Performed By: #### L 702.1000 #### Main Laboratory ([facility]) [address] [place] [address] Bjorn Washington MD Anion gap [Moles/Vol] 11 mmol/L Normal 4-12 [facility] Comment on above: Performed By: #### L 702.1000 #### Main Laboratory ([facility]) [address] [place] [address] Bjorn Washington MD AST [Catalytic activity/Vol] 9 U/L Low 15-41 [facility] Comment on above: Performed By: #### L 702.1000 #### Main Laboratory ([facility]) [address] [place] [address] Bjorn Washington MD Bili,Total 0.7 mg/dL Normal 0.2-1.0 [facility] Comment on above: Performed By: #### L 702.1000 #### Main Laboratory ([facility]) [address] [place] [address] Bjorn Washington MD Calcium [Mass/Vol] 8.30 mg/dL Low 8.8-10.5 [facility] Comment on above: Performed By: #### L 702.1000 #### Main Laboratory ([facility]) [address] [place] [address] Bjorn Washington MD Chloride [Moles/Vol] 104 mmol/L Normal 101-111 [facility] Comment on above: Performed By: #### L 702.1000 #### Main Laboratory ([facility]) [address] [place] [address] Bjorn Washington MD CO2 [Moles/Vol] 17 mmol/L Low 21-32 [facility] Comment on above: Performed By: #### L 702.1000 #### Main Laboratory ([facility]) [address] [place] [address] Bjorn Washington MD Creatinine [Mass/Vol] 0.59 mg/dL Low 0.60-1.30 [facility] Comment on above: Performed By: #### L 702.1000 #### Main Laboratory ([facility]) [address] [place] [address] Bjorn Washington MD GFR Calculation > 60 Normal [facility] Comment on above: Result Comment: Warehouse Supervisor 3Rd Shift mau Kidney Disease stages by NKDF Stage eGFR I >90 II 60-89 III 30-59 IV 15-29 V <15 or dialysis AGE(years) AVERAGE GFR 20-29 116 ml/min/1.73 square meters Note:This result is normalized to 1.73 square meter body surface area. Height and weight are not factored. Performed By: #### L 702.1000 #### Main Laboratory ([facility]) [address] [place] [address] Bjorn Washington MD Glucose [Mass/Vol] 250 mg/dL High 70-110 [facility] Comment on above: Performed By: #### L 702.1000 #### Main Laboratory ([facility]) [address] [place] [address] Bjorn Washington MD Potassium [Moles/Vol] 3.7 mmol/L Normal 3.6-5.0 [facility] Comment on above: Performed By: #### L 702.1000 #### Main Laboratory ([facility]) [address] [place] [place] [address] Bjorn Washington MD Protein [Mass/Vol] 6.1 g/dL Low 6.2-8.0 [facility] Comment on above: Performed By: #### L 702.1000 #### Main Laboratory ([facility]) [address] [place] [address] Bjorn Washington MD Sodium [Moles/Vol] 132 mmol/L Low 135-145 [facility] Comment on above: Performed By: #### L 702.1000 #### Main Laboratory ([facility]) [address] [place], [place] [address] [address] Bjorn Washington MD Urea nitrogen [Mass/Vol] 5 mg/dL Low 7-20 [facility] Comment on above: Performed By: #### L 702.1000 #### Main Laboratory ([facility]) [address] [place], [place] [address] [address] Bjorn Washington MD Eosinophils/100 WBC Auto (Bl d)on 02-01-2022 Eosinophils/100 WBC (Bld) 0.6 % 0-6 [facility] Work Phone: Erythrocyte distribution wid th ratioon 02-01-2022 Erythrocyte distribution width (RBC) [Ratio] 14.2 % 12.0-16.0 [facility] Work Phone: Glucose (S/P/Bld) [Mass/Vol] on 02-01-2022 Glucose [Mass/Vol] 315 mg/dL High 70-110 [facility] Work Phone: Glycated Hemoglobinon 2021 Glycated Hemoglobin 9.8 % High 4.0-5.6 [facility] Comment on above: Result Comment: Hemo globin A1c values greater than or equal to 6.5 percent are diagnostic for diabetes mellitus. Diagnosis should be confirmed by repeat testing. In diabetic patients, HbA1c goals should be discussed with healthcare provider. Test Performed by: [place] [address] Sheep Clipper: T[place] M.D. Ph.D.; CLIA# [id number] Performed By: #### L 400.0202, L400.2200, L400.4800 #### Main Laboratory ([facility]) [facility] [place] [address] Bjorn Washington MD Lymphocytes/100 WBC Auto (Bl d)on 02-01-2022 Lymphocytes/100 WBC (Bld) 19.2 % 15-45 [facility] Work Phone: Comment on above: Delta: 6.1 on -0530 MCH Auto (RBC) [Entitic mass ]on 02-01-2022 MCH (RBC) [Entitic mass] 27.5 pg 27.5-33.0 [facility] Work Phone: [phone] MCHC Auto (RBC) [Mass/Vol]on 02-01-2022 MCHC (RBC) [Mass/Vol] 35.7 g/dL 33.0-36.0 [facility] Work Phone: MCV Auto (RBC) [Entitic vol] on 02-01-2022 MCV (RBC) [Entitic vol] 77.0 CU ANDREW Low 80-97 [facility] Work Phone: Magnesiumon 02-01-2022 Magnesium [Mass/Vol] 1.9 mg/dL Normal 1.8-2.5 [facility] Comment on above: Performed By: #### L 400.0202, L400.2200, L400.4800 #### Main Laboratory ([facility]) [address] [place] [address] Bjorn Washington MD Magnesium [Mass/Vol] 1.5 mg/dL Low 1.8-2.5 [facility] Comment on above: Performed By: #### L 702.1000 #### Main Laboratory ([facility]) [address] [place] [address] Bjorn Washington MD Meter Glucoseon 02-01-2022 Glucose [Mass/Vol] 315 mg/dL High 70-110 [facility] Comment on above: Performed By: #### L 702.1000 #### Main Laboratory ([facility]) [address] [place] [address] Bjorn Washington MD Glucose [Mass/Vol] 201 mg/dL High 70-110 [facility] Comment on above: Performed By: #### L 702.1000 #### Main Laboratory ([facility]) [address] [place] [address] Bjorn Washington MD Glucose [Mass/Vol] 212 mg/dL High 70-110 [facility] Comment on above: Performed By: #### L 702.1000 #### Main Laboratory ([facility]) [address] [place] [address] Bjorn Washington MD Glucose [Mass/Vol] 253 mg/dL High 70-110 [facility] Comment on above: Performed By: #### L 400.0202, L400.2200, L400.4800 #### Main Laboratory ([facility]) [address] [place] [address] Bjorn Washington MD Glucose [Mass/Vol] 145 mg/dL High 70-110 [facility] Comment on above: Performed By: #### L 702.1000 #### Main Laboratory ([facility]) [address] [place] [address] Bjorn Washington MD Glucose [Mass/Vol] 128 mg/dL High 70-110 [facility] Comment on above: Performed By: #### L 702.1000 #### Main Laboratory ([facility]) [address] [place] [address] Bjorn Washington MD Glucose [Mass/Vol] 222 mg/dL High 70-110 [facility] Comment on above: Performed By: #### L 400.0202, L400.2200, L400.4800 #### Main Laboratory ([facility]) [address] [place] [address] Bjorn Washington MD Glucose [Mass/Vol] 107 mg/dL Normal 70-110 [facility] Comment on above: Performed By: #### L 400.0202, L400.2200, L400.4800 #### Main Laboratory ([facility]) [address] [place] [address] Bjorn Washington MD Glucose [Mass/Vol] 245 mg/dL High 70-110 [facility] Comment on above: Performed By: #### L 400.0202, L400.2200, L400.4800 #### Main Laboratory ([facility]) [address] [place] [address] Bjorn Washington MD Monocytes Auto (Bld) [#/Vol] on 02-01-2022 Monocytes (Bld) [#/Vol] 600 /cmm 0-800 L [facility] Work Phone: [phone] Monocytes/100 WBC Auto (Bld) on 02-01-2022 Monocytes/100 WBC (Bld) 5.6 % 2-10 L [facility] Work Phone: Neutrophils/100 WBC Auto (Bl d)on 02-01-2022 Neutrophils/100 WBC (Bld) 74.2 % High 40-70 [facility] Work Phone: No Panel Informationon 02-01 Glomerular Filtration Rate Calc > 60 >60 [facility] Work Phone: Comment on above: AGE(years) AVERAGE G FR 20-29 116 ml/min/1.73 square metersNote:This result is normalized to 1.73 square meter body surface area. Height and weight are not factored.Chronic Kidney Disease stages by NKDFStage eGFR I >90 II 60-89 III 30-59 IV 15-29 V <15 or dialysis Absolute Lymphocytes (auto) 2100 /cmm 3727-2035 [facility] Work Phone: Absolute Neutrophils (auto) 8100 /cmm High 6729-2371 [facility] Work Phone: Nucleated RBC Auto (Bld) [#/ Vol]on 02-01-2022 Nucleated RBC (Bld) [#/Vol] 0.1 /100 WBC <1 [facility] Work Phone: Phosphoruson 02-01-2022 Phosphate [Mass/Vol] 2.3 mg/dL Low 2.4-4.7 [facility] Comment on above: Result Comment: Delt a: < 1.0 on 02/01/22 Performed By: #### L 702.1000 #### Main Laboratory ([facility]) [address] [place] [address] Bjorn Washington MD Phosphate [Mass/Vol] mg/dL Critically low 2.4-4.7 [facility] Comment on above: Result Comment: Crit ical Result S_PHOS:<1.0 Called to and read back by: AZAM PHILIPPE at: 02/01/2022 10:33:13 by:[email or web address] Performed By: #### L 400.0202, L400.2200, L400.4800 #### Main Laboratory ([facility]) [address] [place] [address] Bjorn Washington MD Phosphate [Mass/Vol] 1.0 mg/dL Critically low 2.4-4.7 [facility] Comment on above: Result Comment: Crit ical Result S_PHOS:1.0 Called to and read back by: AZAM PHILIPPE at: 02/01/2022 09:18:42 by:KMENGL Performed By: #### L 702.1000 #### Main Laboratory ([facility]) [address] [place] [address] Bjorn Washington MD Platelets Auto (Bld) [#/Vol] on 02-01-2022 Platelets (Bld) [#/Vol] 249 th/cmm 150-400 L [facility] Work Phone: Progress Note - ENTon 2021 Progress Note - ENT [facility] Medical Records Patient: JAYY NGUYEN [address] : [address] [place] [address] Location: ICU [phone] Unit #: [id number] Progress Note - ENT Good Calderon MD Service Dt/Tm: 02/01/22 7041 Assessment/Problem (1) Dental infection: Status: Acute Plan: [...] < > Report Signed by: on Normal [facility] Progress Note Critical Careo n 02-01-2022 Progress Note Critical Care [facility] Medical Records Patient: JAYY NGUYEN. : [address] [place], [place] [address] Location: ICU [phone] Unit #: [id number] Progress Note Critical Care Tee Buck PA-C [...] 875 Mg Tab) 875 mg PO Q12H [facility] Stop: 02/11/22 05:01 Dextrose (Dextrose 50% 25 Gm/50 Ml Syr) 12.5 gm IV PUSH DIRECTED PRN PRN Reason: Hypoglcyemia per insulin protocol Stop: 05/10/22 17:36 Electrolyte Protocol (Phosphorus Replacement (more content not included)... Normal [facility] RBC Auto (Bld) [#/Vol]on RBC (Bld) [#/Vol] 4.66 mil/cmm 4.00-5.10 [facility] Work Phone: [phone] Serum or plasma alanine carpenter otransferase measurement (enzymatic activity/volume)on 02-01-2022 ALT [Catalytic activity/Vol] 8 U/L Low 10-40 [facility] Work Phone: [phone] Serum or plasma albumin/glob ulin mass ratioon 02-01-2022 Albumin/Globulin [Mass ratio] 1.3 {ratio} Low 1.5-2.5 [facility] Work Phone: [phone] Serum or plasma alkaline denice sphatase measurement (enzymatic activity/volume)on 02-01-2022 ALP [Catalytic activity/Vol] 74 U/L 39-118 [facility] Work Phone: [phone] Serum or plasma aspartate am inotransferase measurement (enzymatic activity/volume)on 02-01-2022 AST [Catalytic activity/Vol] 9 U/L Low 15-41 [facility] Work Phone: [phone] Serum or plasma calcium ruth ann urement (mass/volume)on 02-01-2022 Calcium [Mass/Vol] 8.20 mg/dL Low 8.8-10.5 [facility] Work Phone: [phone] Serum or plasma carbon dioxi de, total measurement (moles/volume)on 02-01-2022 CO2 [Moles/Vol] 23 mmol/L 21-32 [facility] Work Phone: Comment on above: Delta: 17 on 2-0317 Serum or plasma chloride desirae surement (moles/volume)on 02-01-2022 Chloride [Moles/Vol] 103 mmol/L 101-111 [facility] Work Phone: Serum or plasma creatinine m easurement (mass/volume)on 02-01-2022 Creatinine [Mass/Vol] 0.56 mg/dL Low 0.60-1.30 [facility] Work Phone: Serum or plasma glucose ruth ann urement (mass/volume)on 02-01-2022 Glucose [Mass/Vol] 224 mg/dL High 70-110 [facility] Work Phone: [phone] Serum or plasma magnesium me asurement (mass/volume)on 02-01-2022 Magnesium [Mass/Vol] 1.9 mg/dL 1.8-2.5 [facility] Work Phone: Serum or plasma phosphate me asurement (mass/volume)on 02-01-2022 Phosphate [Mass/Vol] 2.3 mg/dL Low 2.4-4.7 [facility] Work Phone: Comment on above: Delta: < 1.0 on 01/06 Serum or plasma potassium me asurement (moles/volume)on 02-01-2022 Potassium [Moles/Vol] 4.0 mmol/L 3.6-5.0 [facility] Work Phone: Serum or plasma protein ruth ann urement (mass/volume)on 02-01-2022 Protein [Mass/Vol] 6.1 g/dL Low 6.2-8.0 [facility] Work Phone: Serum or plasma sodium measu rement (moles/volume)on 02-01-2022 Sodium [Moles/Vol] 133 mmol/L Low 135-145 [facility] Work Phone: Serum or plasma total biliru bin measurement (mass/volume)on 02-01-2022 Bilirubin [Mass/Vol] 0.7 mg/dL 0.2-1.0 [facility] Work Phone: Serum or plasma urea nitroge n measurement (mass/volume)on 02-01-2022 Urea nitrogen [Mass/Vol] 3 mg/dL Low 7-20 [facility] Work Phone: WBC Auto (Bld) [#/Vol]on WBC (Bld) [#/Vol] 10.9 th/cmm High 4.4-10.5 [facility] Work Phone: * Urine urinalysis yeast owen iants panel by computer assisted methodon 01-31-2022 Urinalysis yeast variants panel Computer assisted (U) Present High [facility] Work Phone: Automated bacteria count in urine sediment (number/area)on 01-31-2022 Bacteria Auto (Urine sed) [#/Area] Trace [facility] Work Phone: [phone] Automated blood hypochromia detectionon 01-31-2022 Hypochromia Auto Ql (Bld) 1+ [facility] Work Phone: [phone] Automated erythrocytes count in urine sediment (number/area)on 01-31-2022 RBC Auto (Urine sed) [#/Area] 0-2 /HPF [facility] Work Phone: [phone] Automated leukocytes count i n urine sediment (number/area)on 01-31-2022 WBC Auto (Urine sed) [#/Area] 0-5 /HPF [facility] Work Phone: Automated squamous epithelia l cells count in urine sediment (number/area)on 01-31-2022 Epithelial cells.squamous Auto (Urine sed) [#/Area] 11-20 /HPF High [facility] Work Phone: Basic Metabolic Panel,Fastin javi 01-31-2022 Anion gap [Moles/Vol] 8 mmol/L Normal 4-12 [facility] Comment on above: Performed By: #### L 400.0202, L400.2200, L400.4800 #### Main Laboratory ([facility]) [address] [place] [address] Bjorn Washington MD Calcium [Mass/Vol] 8.50 mg/dL Low 8.8-10.5 [facility] Comment on above: Performed By: #### L 400.0202, L400.2200, L400.4800 #### Main Laboratory ([facility]) [address] [place] [address] Bjorn Washington MD Chloride [Moles/Vol] 105 mmol/L Normal 101-111 [facility] Comment on above: Performed By: #### L 400.0202, L400.2200, L400.4800 #### Main Laboratory ([facility]) [address] [place] [address] Bjorn Washington MD CO2 [Moles/Vol] 19 mmol/L Low 21-32 [facility] Comment on above: Performed By: #### L 400.0202, L400.2200, L400.4800 #### Main Laboratory ([facility]) [address] [place] [address] Bjorn Washington MD Creatinine [Mass/Vol] 0.62 mg/dL Normal 0.60-1.30 [facility] Comment on above: Performed By: #### L 400.0202, L400.2200, L400.4800 #### Main Laboratory ([facility]) [address] [place] [address] Bjorn Washington MD GFR Calculation > 60 Normal [facility] Comment on above: Result Comment: Warehouse Supervisor [employer] Shift mau Kidney Disease stages by NKDF Stage eGFR I >90 II 60-89 III 30-59 IV 15-29 V <15 or dialysis AGE(years) AVERAGE GFR 20-29 116 ml/min/1.73 square meters Note:This result is normalized to 1.73 square meter body surface area. Height and weight are not factored. Performed By: #### L 400.0202, L400.2200, L400.4800 #### Main Laboratory ([facility]) [address] [place] [address] Bjorn Washington MD Glucose [Mass/Vol] 216 mg/dL High 70-110 [facility] Comment on above: Performed By: #### L 400.0202, L400.2200, L400.4800 #### Main Laboratory ([facility]) [address] [place] [address] Bjorn Washington MD Potassium [Moles/Vol] 3.4 mmol/L Low 3.6-5.0 [facility] Comment on above: Performed By: #### L 400.0202, L400.2200, L400.4800 #### Main Laboratory ([facility]) [address] [place], [facility] Bjorn Washington MD Sodium [Moles/Vol] 132 mmol/L Low 135-145 [facility] Comment on above: Performed By: #### L 400.0202, L400.2200, L400.4800 #### Main Laboratory ([facility]) [address] [place], [facility] Bjorn Washington MD Urea nitrogen [Mass/Vol] 7 mg/dL Normal 7-20 [facility] Comment on above: Performed By: #### L 400.0202, L400.2200, L400.4800 #### Main Laboratory ([facility]) [address] [place] [address] Bjorn Washington MD Anion gap [Moles/Vol] 8 mmol/L Normal 4-12 [facility] Comment on above: Performed By: #### L 702.1000 #### Main Laboratory ([facility]) [address] [place] [address] Bjorn Washington MD Calcium [Mass/Vol] 8.40 mg/dL Low 8.8-10.5 [facility] Comment on above: Performed By: #### L 702.1000 #### Main Laboratory ([facility]) [address] [place] [address] Bjorn Washington MD Chloride [Moles/Vol] 108 mmol/L Normal 101-111 [facility] Comment on above: Performed By: #### L 702.1000 #### Main Laboratory ([facility]) [address] [place] [address] Bjorn Washington MD CO2 [Moles/Vol] 19 mmol/L Low 21-32 [facility] Comment on above: Result Comment: Toi a: 12 on 01/31/22 Performed By: #### L 702.1000 #### Main Laboratory ([facility]) [address] [place] [address] Bjorn Washington MD Creatinine [Mass/Vol] 0.66 mg/dL Normal 0.60-1.30 [facility] Comment on above: Performed By: #### L 702.1000 #### Main Laboratory ([facility]) [address] [place] [address] Bjorn Washington MD GFR Calculation > 60 Normal [facility] Comment on above: Result Comment: Warehouse Supervisor 3[employer]d Shift mau Kidney Disease stages by NKDF Stage eGFR I >90 II 60-89 III 30-59 IV 15-29 V <15 or dialysis AGE(years) AVERAGE GFR 20-29 116 ml/min/1.73 square meters Note:This result is normalized to 1.73 square meter body surface area. Height and weight are not factored. Performed By: #### L 702.1000 #### Main Laboratory ([facility]) [address] [place] [address] Bjorn Washington MD Glucose [Mass/Vol] 179 mg/dL High 70-110 [facility] Comment on above: Performed By: #### L 702.1000 #### Main Laboratory ([facility]) [address] [place] [address] Bjorn Washington MD Potassium [Moles/Vol] 3.6 mmol/L Normal 3.6-5.0 [facility] Comment on above: Performed By: #### L 702.1000 #### Main Laboratory ([facility]) [address] [place] [address] Bjorn Washington MD Sodium [Moles/Vol] 135 mmol/L Normal 135-145 [facility] Comment on above: Performed By: #### L 702.1000 #### Main Laboratory ([facility]) [address] [place], [place] [address] Bjorn Washington MD Urea nitrogen [Mass/Vol] 8 mg/dL Normal 7-20 [facility] Comment on above: Performed By: #### L 702.1000 #### Main Laboratory ([facility]) [address] [place], [place] [address] Bjorn Washington MD Anion gap [Moles/Vol] 13 mmol/L High 4-12 [facility] Comment on above: Performed By: #### L 400.0202, L400.2200, L400.4800 #### Main Laboratory ([facility]) [address] [place], [facility] Bjorn Washington MD Calcium [Mass/Vol] 8.10 mg/dL Low 8.8-10.5 [facility] Comment on above: Performed By: #### L 400.0202, L400.2200, L400.4800 #### Main Laboratory ([facility]) [address] [place], [facility] Bjorn Washington MD Chloride [Moles/Vol] 112 mmol/L High 101-111 [facility] Comment on above: Performed By: #### L 400.0202, L400.2200, L400.4800 #### Main Laboratory ([facility]) [address] [place], [facility] Bjorn Washington MD CO2 [Moles/Vol] 12 mmol/L Low 21-32 [facility] Comment on above: Performed By: #### L 400.0202, L400.2200, L400.4800 #### Main Laboratory ([facility]) [address] [place] [address] Bjorn Washington MD Creatinine [Mass/Vol] 0.76 mg/dL Normal 0.60-1.30 [facility] Comment on above: Performed By: #### L 400.0202, L400.2200, L400.4800 #### Main Laboratory ([facility]) [address] [place] [address] Bjorn Washington MD GFR Calculation > 60 Normal [facility] Comment on above: Result Comment: Warehouse Supervisor [employer] Shift mau Kidney Disease stages by NKDF Stage eGFR I >90 II 60-89 III 30-59 IV 15-29 V <15 or dialysis AGE(years) AVERAGE GFR 20-29 116 ml/min/1.73 square meters Note:This result is normalized to 1.73 square meter body surface area. Height and weight are not factored. Performed By: #### L 400.0202, L400.2200, L400.4800 #### Main Laboratory ([facility]) [address] [place] [address] Bjorn Washington MD Glucose [Mass/Vol] 175 mg/dL High 70-110 [facility] Comment on above: Performed By: #### L 400.0202, L400.2200, L400.4800 #### Main Laboratory ([facility]) [address] [place] [address] Bjorn Washington MD Potassium [Moles/Vol] 4.5 mmol/L Normal 3.6-5.0 [facility] Comment on above: Performed By: #### L 400.0202, L400.2200, L400.4800 #### Main Laboratory ([facility]) [address] [place] [address] Bjorn Washington MD Sodium [Moles/Vol] 137 mmol/L Normal 135-145 [facility] Comment on above: Performed By: #### L 400.0202, L400.2200, L400.4800 #### Main Laboratory ([facility]) [address] [place] [address] Bjorn Washington MD Urea nitrogen [Mass/Vol] 11 mg/dL Normal 7-20 [facility] Comment on above: Performed By: #### L 400.0202, L400.2200, L400.4800 #### Main Laboratory ([facility]) [address] [place], [facility] Bjorn Washington MD Anion gap [Moles/Vol] 17 mmol/L High 4-12 [facility] Comment on above: Performed By: #### L 702.1000 #### Main Laboratory ([facility]) [address] [place], [facility] Bjorn Washington MD Calcium [Mass/Vol] 8.40 mg/dL Low 8.8-10.5 [facility] Comment on above: Performed By: #### L 702.1000 #### Main Laboratory ([facility]) [address] [place], [facility] Bjorn Washington MD Chloride [Moles/Vol] 111 mmol/L Normal 101-111 [facility] Comment on above: Performed By: #### L 702.1000 #### Main Laboratory ([facility]) [address] [place], [facility] Bjorn Washington MD CO2 [Moles/Vol] 10 mmol/L Low 21-32 [facility] Comment on above: Performed By: #### L 702.1000 #### Main Laboratory ([facility]) [address] [place], [facility] Bjorn Washington MD Creatinine [Mass/Vol] 0.83 mg/dL Normal 0.60-1.30 [facility] Comment on above: Performed By: #### L 702.1000 #### Main Laboratory ([facility]) [address] [place] [address] Bjorn Washington MD GFR Calculation > 60 Normal [facility] Comment on above: Result Comment: Warehouse Supervisor [employer]d Shift mau Kidney Disease stages by NKDF Stage eGFR I >90 II 60-89 III 30-59 IV 15-29 V <15 or dialysis AGE(years) AVERAGE GFR 20-29 116 ml/min/1.73 square meters Note:This result is normalized to 1.73 square meter body surface area. Height and weight are not factored. Performed By: #### L 702.1000 #### Main Laboratory ([facility]) [address] [place] [address] Bjorn Washington MD Glucose [Mass/Vol] 212 mg/dL High 70-110 [facility] Comment on above: Performed By: #### L 702.1000 #### Main Laboratory ([facility]) [address] [place] [address] Bjorn Washington MD Potassium [Moles/Vol] 4.2 mmol/L Normal 3.6-5.0 [facility] Comment on above: Performed By: #### L 702.1000 #### Main Laboratory ([facility]) [address] [place] [address] Bjorn Washington MD Sodium [Moles/Vol] 138 mmol/L Normal 135-145 [facility] Comment on above: Performed By: #### L 702.1000 #### Main Laboratory ([facility]) [facility] [place] [address] Bjorn Washington MD Urea nitrogen [Mass/Vol] 12 mg/dL Normal 7-20 [facility] Comment on above: Performed By: #### L 702.1000 #### Main Laboratory ([facility]) [facility] [place] [address] Bjorn Washington MD Bilirubin Auto test strip Ql (U)on 01-31-2022 Bilirubin Ql (U) Negative Negative [facility] Work Phone: Blood hemoglobin A1/total he moglobinon 01-31-2022 Hemoglobin A1 (Bld) [Mass fraction] 9.8 % High [facility] Work Phone: Comment on above: Hemoglobin A1c value s greater than or equal to 6.5 percentare diagnostic for diabetes mellitus. Diagnosis should beconfirmed by repeat testing. In diabetic patients, [id number] should be discussed with healthcare provider.Test Performed by:[address] Director: [place] M.D. Ph.D.; CLIA# [id number] CBC with Differentialon 01-06 Abs Baso Count 100 /cmm Normal 0-200 [facility] Comment on above: Performed By: #### L 702.1000 #### Main Laboratory ([facility]) [address] [place] [address] Bjorn Washington MD Abs Eos Count 0 /cmm Normal 0-500 [facility] Comment on above: Performed By: #### L 702.1000 #### Main Laboratory ([facility]) [address] [place] [address] Bjorn Washington MD Abs Lymph Count 1600 /cmm Normal 3616-2676 [facility] Comment on above: Performed By: #### L 702.1000 #### Main Laboratory ([facility]) [address] [place] [address] Bjorn Washington MD Abs [place] Count 1600 /cmm High 0-800 [facility] Comment on above: Performed By: #### L 702.1000 #### Main Laboratory ([facility]) [address] [place] [address] Bjorn Washington MD Abs Neut Count 92674 /cmm High 5221-5102 [facility] Comment on above: Performed By: #### L 702.1000 #### Main Laboratory ([facility]) [address] [place] [address] Bjorn Washington MD Basophils/100 WBC (Bld) 0.4 % Normal 0-2 L [facility] Comment on above: Performed By: #### L 702.1000 #### Main Laboratory ([facility]) [address] [place], [place] [address] Bjorn Washington MD EOS-Auto Diff 0.1 % Normal 0-6 [facility] Comment on above: Performed By: #### L 702.1000 #### Main Laboratory ([facility]) [address] [place], [place] [address] Bjorn Washington MD Erythrocyte distribution width (RBC) [Ratio] 14.6 % Normal 12.0-16.0 [facility] Comment on above: Performed By: #### L 702.1000 #### Main Laboratory ([facility]) [address] [place] [address] Bjorn Washington MD Hematocrit (Bld) [Volume fraction] 43.8 % Normal 35.0-44.0 [facility] Comment on above: Performed By: #### L 702.1000 #### Main Laboratory ([facility]) [address] [place] [address] Bjorn Washington MD Hemoglobin (Bld) [Mass/Vol] 14.8 g/dL Normal 12.0-15.0 [facility] Comment on above: Performed By: #### L 702.1000 #### Main Laboratory ([facility]) [address] [place] [address] Bjorn Washington MD Hypochromasia 1+ Normal [facility] Comment on above: Performed By: #### L 702.1000 #### Main Laboratory ([facility]) [address] [place] [address] Bjorn Washington MD Lymphocytes/100 WBC (Bld) 6.1 % Low 15-45 [facility] Comment on above: Performed By: #### L 702.1000 #### Main Laboratory ([facility]) [address] [place] [address] Bjorn Washington MD MCH (RBC) [Entitic mass] 26.7 pg Low 27.5-33.0 [facility] Comment on above: Performed By: #### L 702.1000 #### Main Laboratory ([facility]) [address] [place], [place] [address] Bjorn Washington MD MCHC (RBC) [Mass/Vol] 33.9 g/dL Normal 33.0-36.0 [facility] Comment on above: Performed By: #### L 702.1000 #### Main Laboratory ([facility]) [address] [place], [place] [address] Bjorn Washington MD MCV 79.0 CU ANDREW Low 80-97 [facility] Comment on above: Performed By: #### L 702.1000 #### Main Laboratory ([facility]) [address] [place], [place] [address] Bjorn Washington MD [place]- Auto Diff 6.1 % Normal 2-10 [facility] Comment on above: Performed By: #### L 702.1000 #### Main Laboratory ([facility]) [address] [place], [place] [address] Bjorn Washington MD Neut-Auto Diff 87.3 % High 40-70 [facility] Comment on above: Performed By: #### L 702.1000 #### Main Laboratory ([facility]) [address] [place], [place] [address] Bjorn Washington MD NRBC-Auto 0.0 /100 WBC Normal <1 [facility] Comment on above: Performed By: #### L 702.1000 #### Main Laboratory ([facility]) [address] [place], [place] [address] Bjorn Washington MD Platelet Count 309 th/cmm Normal 150-400 [facility] Comment on above: Performed By: #### L 702.1000 #### Main Laboratory ([facility]) [address] [place], [place] [address] Bjorn Washington MD RBC 5.55 mil/cmm High 4.00-5.10 [facility] Comment on above: Performed By: #### L 702.1000 #### Main Laboratory ([facility]) [address] [place] [address] Bjorn Washington MD WBC 25.6 th/cmm High 4.4-10.5 [facility] Comment on above: Performed By: #### L 702.1000 #### Main Laboratory ([facility]) [address] [place] [address] Sinuses With Contraston 04-03-2021 CT Sinuses With Contrast [facility] Radiology Department Patient: JAYY NGUYEN [address] : 2000 Sex: Waqar [place] [address] Location: [place] [address] Unit #: [id number] Ordering Phys: Good Calderon MD Exam Date: [...] by: Shane KNAPP,David Turpin on 01/31/221856 Normal [facility] Complete urinalysis with ref torito to cultureon 01-31-2022 Urinalysis complete W Reflex Culture panel (U) No [facility] Work Phone: Comment on above: Culture not done per lab protocol Consultation - ENTon 022 Consultation - ENT [facility] Medical Records Patient: JAYY NGUYEN [address] : 2000 [place], [place] [address] Location: ICU [phone] Unit #: [id number] Consultation - ENT Good Calderon MD Service [...] < > Report Signed by: on Normal [facility] HCO3 (BldV) [Moles/Vol]on HCO3 (Bld) [Moles/Vol] 10.4 mmol/L Low 23.0-28.0 L [facility] Work Phone: Hemoglobin A1Con 01-31-2022 Hgb A1C Normal 4.4-6.4 [facility] Comment on above: Result Comment: Vari ant detected - Specimen sent to [facility] for A1c testing. Performed By: #### L 400.0202, L400.2200, L400.4800 #### Main Laboratory ([facility]) [address] [place] [address] Bjorn Washington MD Hemoglobin [Mass/volume] in Urine by Automated test stripon 01-31-2022 Hemoglobin Auto test strip (U) [Mass/Vol] Negative Negative [facility] Work Phone: Ionized Calciumon 01-31-2022 Ionized Calcium 1.20 mmol/L Normal 1.15-1.29 [facility] Comment on above: Performed By: #### L 702.1000 #### Main Laboratory ([facility]) [address] [place] [address] Bjorn Washington MD Ketones Auto test strip (U) [Mass/Vol]on 01-31-2022 Ketones (U) [Mass/Vol] 10 mg/dL High Negative [facility] Work Phone: Magnesiumon 01-31-2022 Magnesium [Mass/Vol] 1.8 mg/dL Normal 1.8-2.5 [facility] Comment on above: Performed By: #### L 702.1000 #### Main Laboratory ([facility]) [address] [place] [address] Bjorn Washington MD Meter Glucoseon 01-31-2022 Glucose [Mass/Vol] 173 mg/dL High 70-110 [facility] Comment on above: Performed By: #### L 702.1000 #### Main Laboratory ([facility]) [address] [place] [address] Bjorn Washington MD Glucose [Mass/Vol] 146 mg/dL High 70-110 [facility] Comment on above: Performed By: #### L 400.0202, L400.2200, L400.4800 #### Main Laboratory ([facility]) [address] [place] [address] Bjorn Washington MD Glucose [Mass/Vol] 136 mg/dL High 70-110 [facility] Comment on above: Performed By: #### L 400.0202, L400.2200, L400.4800 #### Main Laboratory ([facility]) [address] [place] [address] Bjorn Washington MD Glucose [Mass/Vol] 163 mg/dL High 70-110 [facility] Comment on above: Performed By: #### L 702.1000 #### Main Laboratory ([facility]) [address] [place] [address] Bjorn Washington MD Glucose [Mass/Vol] 188 mg/dL High 70-110 [facility] Comment on above: Performed By: #### L 702.1000 #### Main Laboratory ([facility]) [address] [place] [address] Bjorn Washington MD Glucose [Mass/Vol] 170 mg/dL High 70-110 [facility] Comment on above: Performed By: #### L 702.1000 #### Main Laboratory ([facility]) [address] [place] [address] Bjorn Washington MD Glucose [Mass/Vol] 165 mg/dL High 70-110 [facility] Comment on above: Performed By: #### L 702.1000 #### Main Laboratory ([facility]) [address] [place] [address] Bjorn Washington MD Glucose [Mass/Vol] 164 mg/dL High 70-110 [facility] Comment on above: Performed By: #### L 702.1000 #### Main Laboratory ([facility]) [address] [place] [address] Bjorn Washington MD Glucose [Mass/Vol] 196 mg/dL High 70-110 [facility] Comment on above: Performed By: #### L 400.0202, L400.2200, L400.4800 #### Main Laboratory ([facility]) [address] [place] [address] Bjorn Washington MD Glucose [Mass/Vol] 185 mg/dL High 70-110 [facility] Comment on above: Performed By: #### L 400.0202, L400.2200, L400.4800 #### Main Laboratory ([facility]) [address] [place] [address] Bjorn Washington MD Glucose [Mass/Vol] 195 mg/dL High 70-110 [facility] Comment on above: Performed By: #### L 702.1000 #### Main Laboratory ([facility]) [address] [place] [address] Bjorn Washington MD Glucose [Mass/Vol] 191 mg/dL High 70-110 [facility] Comment on above: Performed By: #### L 702.1000 #### Main Laboratory ([facility]) [address] [place] [address] Bjorn Washington MD Glucose [Mass/Vol] 228 mg/dL High 70-110 [facility] Comment on above: Performed By: #### L 702.1000 #### Main Laboratory ([facility]) [address] [place] [address] Bjorn Washington MD No Panel Informationon 01-31 Blood Gas Notified By Yes [facility] Work Phone: Blood Gas Patient Equipment Room Air [facility] Work Phone: Venous Blood pH 7.22 Low 7.31-7.41 [facility] Work Phone: Hemoglobin A1c See comment 4.4-6.4 [facility] Work Phone: Comment on above: Variant detected - S pecimen sent to [facility] for A1c testing. Ionized Calcium 1.20 mmol/L 1.15-1.29 [facility] Work Phone: Osmolality of Serum or Plasm aon 01-31-2022 Osmolality [Osmolality] 299 mOsm 270-300 L [facility] Work Phone: Osmolality, Serumon 02-01-20 22 Osmolality, Serum 299 mOsm Normal 270-300 [facility] Comment on above: Performed By: #### L 400.0202, L400.2200, L400.4800 #### Main Laboratory ([facility]) [address] [place] [address] Bjorn Washington MD Osmolality, Serum 297 mOsm Normal 270-300 [facility] Comment on above: Performed By: #### L 702.1000 #### Main Laboratory ([facility]) [address] [place] [address] Bjorn Washington MD Osmolality, Serum 298 mOsm Normal 270-300 [facility] Comment on above: Performed By: #### L 400.0202, L400.2200, L400.4800 #### Main Laboratory ([facility]) [address] [place] [address] Bjorn Washington MD Osmolality, Serum 309 mOsm High 270-300 [facility] Comment on above: Performed By: #### L 702.1000 #### Main Laboratory ([facility]) [address] [place], [facility] Bjorn Washington MD Other useful informationon 1 04-03-2021 Other useful information Vein [facility] Work Phone: Phosphoruson 01-31-2022 Phosphate [Mass/Vol] 1.3 mg/dL Low 2.4-4.7 [facility] Comment on above: Performed By: #### L 400.0202, L400.2200, L400.4800 #### Main Laboratory ([facility]) [address] [place], [facility] Bjorn Washington MD Phosphate [Mass/Vol] 1.5 mg/dL Low 2.4-4.7 [facility] Comment on above: Result Comment: Delt a: 2.1 on 01/31/22 Performed By: #### L 702.1000 #### Main Laboratory ([facility]) [address] [place] [address] Bjorn Washington MD Phosphate [Mass/Vol] 2.1 mg/dL Low 2.4-4.7 [facility] Comment on above: Performed By: #### L 400.0202, L400.2200, L400.4800 #### Main Laboratory ([facility]) [address] [place] [address] Bjorn Washington MD Phosphate [Mass/Vol] 2.3 mg/dL Low 2.4-4.7 [facility] Comment on above: Performed By: #### L 702.1000 #### Main Laboratory ([facility]) [address] [place] [address] Bjorn Washington MD Protein Auto test strip (U) [Mass/Vol]on 01-31-2022 Protein (U) [Mass/Vol] 10 mg/dL Negative [facility] Work Phone: Serum or plasma fasting gluc ose measurement (mass/volume)on 01-31-2022 Glucose post fast [Mass/Vol] 216 mg/dL High 70-110 [facility] Work Phone: Specific gravity Auto test s trip (U) [Rel density]on 01-31-2022 Specific gravity (U) [Rel density] >=1.030 1.000-1.035 [facility] Work Phone: Urinalysis w Micro Rflx Cult on 01-31-2022 Bacteria Trace Normal [facility] Comment on above: Order Comment: Urine Source Urine, Clean Catch Performed By: #### L 400.0202, L400.2200, L400.4800 #### Main Laboratory ([facility]) [address] [place] [address] Bjorn Washington MD Epi,Squamous 11-20 [facility] Comment on above: Order Comment: Urine Source Urine, Clean Catch Performed By: #### L 400.0202, L400.2200, L400.4800 #### Main Laboratory ([facility]) [address] [place] [address] Bjorn Washington MD Mucous Present [facility] Comment on above: Order Comment: Urine Source Urine, Clean Catch Performed By: #### L 400.0202, L400.2200, L400.4800 #### Main Laboratory ([facility]) [address] [place] [address] Bjorn Washington MD RBC 0-2 [facility] Comment on above: Order Comment: Urine Source Urine, Clean Catch Performed By: #### L 400.0202, L400.2200, L400.4800 #### Main Laboratory ([facility]) [address] [place], [place] [address] Bjorn Washington MD UA Reflex Culture No Normal [facility] Comment on above: Order Comment: Urine Source Urine, Clean Catch Result Comment: Cult ure not done per lab protocol Performed By: #### L 400.0202, L400.2200, L400.4800 #### Main Laboratory ([facility]) [address] [place] [address] Bjorn Washington MD WBC 0-5 Normal [facility] Comment on above: Order Comment: Urine Source Urine, Clean Catch Performed By: #### L 400.0202, L400.2200, L400.4800 #### Main Laboratory ([facility]) [address] [place], [place] [address] Bjorn Washington MD Yeast Present High [facility] Comment on above: Order Comment: Urine Source Urine, Clean Catch Performed By: #### L 400.0202, L400.2200, L400.4800 #### Main Laboratory ([facility]) [address] [place], [place] [address] Bjorn Washington MD Appearance (U) Clear Normal [facility] Comment on above: Order Comment: Urine Source Urine, Clean Catch Performed By: #### L 400.0202, L400.2200, L400.4800 #### Main Laboratory ([facility]) [address] [place], [place] [address] Bjorn Washington MD Bilirubin Ql (U) Negative Normal Negative [facility] Comment on above: Order Comment: Urine Source Urine, Clean Catch Performed By: #### L 400.0202, L400.2200, L400.4800 #### Main Laboratory ([facility]) [address] [place], [place] [address] Bjorn Washington MD Color (U) Yellow Normal [facility] Comment on above: Order Comment: Urine Source Urine, Clean Catch Performed By: #### L 400.0202, L400.2200, L400.4800 #### Main Laboratory ([facility]) [address] [place] [address] Bjorn Washington MD Glucose Ql (U) Negative Normal Negative [facility] Comment on above: Order Comment: Urine Source Urine, Clean Catch Performed By: #### L 400.0202, L400.2200, L400.4800 #### Main Laboratory ([facility]) [address] [place] [address] Bjorn Washington MD Ketones Ql (U) 10 mg/dL High Negative [facility] Comment on above: Order Comment: Urine Source Urine, Clean Catch Performed By: #### L 400.0202, L400.2200, L400.4800 #### Main Laboratory ([facility]) [address] [place] [address] Bjorn Washington MD Leukocytes Negative Normal Negative [facility] Comment on above: Order Comment: Urine Source Urine, Clean Catch Performed By: #### L 400.0202, L400.2200, L400.4800 #### Main Laboratory ([facility]) [address] [place] [address] Bjorn Washington MD Nitrite Ql (U) Negative Normal Negative [facility] Comment on above: Order Comment: Urine Source Urine, Clean Catch Performed By: #### L 400.0202, L400.2200, L400.4800 #### Main Laboratory ([facility]) [address] [place] [address] Bjorn Washington MD pH (U) 6.0 [pH] Normal 5.0-8.0 [facility] Comment on above: Order Comment: Urine Source Urine, Clean Catch Performed By: #### L 400.0202, L400.2200, L400.4800 #### Main Laboratory ([facility]) [address] [place] [address] Bjorn Washington MD Protein Ql (U) 10 mg/dL Normal Negative [facility] Comment on above: Order Comment: Urine Source Urine, Clean Catch Performed By: #### L 400.0202, L400.2200, L400.4800 #### Main Laboratory ([facility]) [address] [place], [place] [address] Bjorn Washington MD Specific gravity (U) [Rel density] >=1.030 Normal 1.000-1.035 [facility] Comment on above: Order Comment: Urine Source Urine, Clean Catch Performed By: #### L 400.0202, L400.2200, L400.4800 #### Main Laboratory ([facility]) [address] [place] [address] jBorn Washington MD Urobilinogen Normal Normal 0.2-1.0 [facility] Comment on above: Order Comment: Urine Source Urine, Clean Catch Performed By: #### L 400.0202, L400.2200, L400.4800 #### Main Laboratory ([facility]) [address] [place] [address] Bjorn Washington MD Urine appearance determinati onon 01-31-2022 Appearance (U) Clear [facility] Work Phone: Urine color determinationon 01-31-2022 Color (U) Yellow [facility] Work Phone: Urine glucose measurement by automated test strip (mass/volume)on 01-31-2022 Glucose Auto test strip (U) [Mass/Vol] Negative Negative [facility] Work Phone: [phone] Urine leukocytes count by au tomated test strip (number/volume)on 01-31-2022 WBC Auto test strip (U) [#/Vol] Negative Negative [facility] Work Phone: [phone] Urine mucus detection by aut omated methodon 01-31-2022 Mucus Auto Ql (U) Present [facility] Work Phone: Urine nitrite detection by a utomated test stripon 01-31-2022 Nitrite Auto test strip Ql (U) Negative Negative [facility] Work Phone: Urobilinogen Auto test strip (U) [Mass/Vol]on 01-31-2022 Urobilinogen (U) [Mass/Vol] Normal 0.2-1.0 [facility] Work Phone: Venous Blood Gaseson 022 ABG Device Room Air Normal [facility] Comment on above: Performed By: #### L 702.1000 #### Main Laboratory ([facility]) [address] [place] [address] Bjorn Washington MD ABG Draw Site Vein Normal [facility] Comment on above: Performed By: #### L 702.1000 #### Main Laboratory ([facility]) [address] [place] [address] Bjorn Washington MD HCO3 (Bld) [Moles/Vol] 10.4 mmol/L Low 23.0-28.[address] [facility] Comment on above: Performed By: #### L 702.1000 #### Main Laboratory ([facility]) [address] [place] [address] Bjorn Washington MD Oxygen saturation in Blood 91 % Low 95-98 [facility] Comment on above: Performed By: #### L 702.1000 #### Main Laboratory ([facility]) [address] [place] [address] Bjorn Washington MD Unit Notified? Yes Normal [facility] Comment on above: Performed By: #### L 702.1000 #### Main Laboratory ([facility]) [address] [place], [place] [address] Bjorn Washington MD Venous Base Excess -17 mmol/L Low -2-3 [facility] Comment on above: Performed By: #### L 702.1000 #### Main Laboratory ([facility]) [address] [place] [address] Bjorn Washington MD Venous FiO2 21.00 Normal [facility] Comment on above: Performed By: #### L 702.1000 #### Main Laboratory ([facility]) [address] [place] [address] Bjorn Washington MD Venous pCO2 25 mmHg Low 41-51 [facility] Comment on above: Performed By: #### L 702.1000 #### Main Laboratory ([facility]) [address] [place] [address] Bjorn Washington MD Venous pH 7.22 Low 7.31-7.41 [facility] Comment on above: Performed By: #### L 702.1000 #### Main Laboratory ([facility]) [address] [place] [address] Bjorn Washington MD Venous pO2 70 mmHg Low 80-105 [facility] Comment on above: Performed By: #### L 702.1000 #### Main Laboratory ([facility]) [address] [place] [address] Bjorn Washington MD Venous blood Amanda indexo n 01-31-2022 Amanda index (BldV+Inhl gas) [Ratio] 21.00 [facility] Work Phone: Venous blood base excess by calculationon 01-31-2022 Base excess Calc (BldV) [Moles/Vol] -17 mmol/L Low -2-3 [facility] Work Phone: Venous blood oxygen saturati on (mass fraction)on 01-31-2022 Oxygen saturation in Venous blood 91 % Low 95-98 [facility] Work Phone: Venous blood partial pressur e of carbon dioxide measurement adjusted to patients actuon 01-31-2022 CO2 adjusted to patient's actual temperature (BldV) [Partial pressure] 25 mmHg Low 41-51 [facility] Work Phone: Venous blood partial pressur e of oxygen measurement with patient temperature corrrecton 01-31-2022 Oxygen adjusted to patient's actual temperature (BldV) [Partial pressure] 70 mmHg Low 80-105 [facility] Work Phone: pH Auto test strip (U)on pH (U) 6.0 [pH] 5.0-8.0 [facility] Work Phone: PAP ACOG PANEL 2: 21 to 29on 06-27-2021 . . Normal [place] Comment on above: Performed By: #### [id number] #### [facility] [address] [place] [address] Dr. Ute Adame Age Gdln ACOG Testing - [facility] Comment on above: Performed By: #### [id number] #### [facility] [address] [place] [address] Dr. Ute Adame DIAGNOSIS: Comment [facility] Comment on above: Result Comment: NEGA TIVE FOR INTRAEPITHELIAL LESION OR MALIGNANCY. CELLULAR CHANGES ASSOCIATED WITH INFLAMMATION ARE PRESENT. Performed By: #### [id number] #### [facility] [address] [place] [address] Dr. Ute Adame Methodology: Comment [facility] Comment on above: Result Comment: This liquid based ThinPrep(R) pap test was screened with the use of an image guided system. Performed By: #### [id number] #### [facility] [address] [place] [address] Dr. Ute Adame Note: Comment [facility] Comment on above: Result Comment: The Pap smear is a screening test designed to aid in the detection of premalignant and malignant conditions of the uterine cervix. It is not a diagnostic procedure and should not be used as the sole means of detecting cervical cancer. Both false-positive and false-negative reports do occur. . Performed By: #### [id number] #### [facility] [address] [place] [address] Dr. Ute Adame Performed by: Comment Normal [facility] Comment on above: Result Comment: Danielle Alcaraz, Precision Lens Grinder (ASCP) Performed By: #### [id number] #### [facility] [address] [place], [place] [address] Dr. Ute Adame Reflex Criteria: Comment Normal [facility] Comment on above: Result Comment: The HPV DNA reflex criteria were not met with this specimen result therefore, no HPV testing was performed. . Performed By: #### [id number] #### [facility] [address] [place], [place] [address] Dr. Ute Adame Specimen adequacy: Comment Normal [facility] Comment on above: Result Comment: Sati sfactory for evaluation. Endocervical and/or squamous metaplastic cells (endocervical component) are present. Performed By: #### [id number] #### [facility] [address] [place], [place] [address] Dr. Ute Adame Vital Signs Date Time Vital Sign Value Performing Clinician Faci lity 02-01-2022 19:27-0500 Body temperature 98 [degF] Physician None Work Phone: [facility] Work Phone: 02-01-2022 19:27-0500 Diastolic blood pressure 77 mm[Hg] Physician None Work Phone: [facility] Work Phone: 02-01-2022 19:27-0500 Heart rate 75 /min Physician None Work Phone: [facility] Work Phone: 02-01-2022 19:27-0500 Respiratory rate 19 /min Physician None Work Phone: [facility] Work Phone: 02-01-2022 19:27-0500 SaO2% (BldA) [Mass fraction] 99 % Physician None Work Phone: [facility] Work Phone: 02-01-2022 19:27-0500 Systolic blood pressure 133 mm[Hg] Physician None Work Phone: [facility] Work Phone: 02-01-2022 00:16-0500 Body weight 83.2 kg Physician None Work Phone: [facility] Work Phone: 01-31-2022 04:13-0500 Body height 162.56 cm Physician None Work Phone: [facility] Work Phone: 01-31-2022 04:13-0500 Body mass index (BMI) [Ratio] 29.7 kg/m2 Physician None Work Phone: [facility] Work Phone: Encounters Encounter Date Encounter Type Care Provider Facility Start: 02-04-2023 End: 02-05-2023 Evaluation and management of inpatient RO TABARES [facility] Start: 02-01-2023 End: 02-10-2023 Evaluation and management of inpatient SOPHIE HUDSON [facility] Start: 02-01-2023 End: 02-01-2023 Orders Only Anjali Andino [employer] [facility] at [facility] Comment on above: Pre-existing type 1 diabetes mellitus during in third trimester (Primary Dx); History of stillbirth in patient in third trimester, antepartum Start: 01-31-2023 End: 01-31-2023 ambulatory LINDA OLY Not Available Start: 01-23-2023 End: 01-24-2023 ambulatory LINDA R [facility] Start: 01-17-2023 End: 01-17-2023 ambulatory CAITLIN BHATIA Not Available Start: 01-03-2023 End: 01-03-2023 ambulatory LINDA OLY Not Available Start: 12-20-2022 End: 12-20-2022 ambulatory CAITLIN BHATIA Not Available Start: 01-31-2022 End: 02-01-2022 Evaluation and management of inpatient None Facility:[facility] Start: 01-31-2022 End: 02-01-2022 Evaluation and management of inpatient Physician None Work Phone: [facility] Start: 06-21-2021 End: 06-21-[address] TAMI ALVAREZ Facility:H1 Procedures Date Procedure Procedure Detail Performing Clinician Start: 01-30-2023 Adult depression screening assessment Janiazeferino Sina [facility] Start: 09-20-2022 Microscopic observat ion [Identifier] in Cervix by Cyto stain Janiazeferino [place] [facility] Start: 01-31-2022 Blood count hemoglobin Comment on above: Order Comment: Urine Source Urine, Clean Catch Performed By: #### L 400.0202, L400.2200, L400.4800 #### Main Laboratory ([facility]) [address] [place] [address] Bjorn Washington MD Start: 01-31-2022 CT of paranasal sinu ses with contrast Physician None Work Phone: Start: 04-27-2021 Microalbumin [Mass/volume] in Urine by Test strip Anjali [place] [facility] Start: 10-24-2019 End: 06-02-2020 H/O: section Previous delivery, antepartum Anjali Andino [employer] SAL[employer] COORDINATOR Plan of Treatment Date Care Activity Detail Author Start: 03-25-2030 DTaP,Tdap and Td Vac cines (9 - Td or Tdap) DTaP,Tdap and Td Vaccines (9 - Td or Tdap) [facility] Start: 09-20-2025 Screening for malign ant neoplasm of cervix Pap Smear [facility] Start: 02-02-2024 End: 02-02-2024 US MFM with or without consult US MFM with or without consult Imaging Routine Pre-existing type 1 diabetes mellitus during in third trimester History of stillbirth in patient in third trimester, antepartum Expected: 02/02/2024 (Approximate), Expires: 02/02/2024 [facility] [employer] Work Phone: Comment on above: Expected: 02/02/2024 (Approximate), Expires: 02/02/2024 Start: 01-31-2024 Depression Screening Depression Scre ening [facility] Start: 01-24-2024 Adult BMI Screening Adult BMI Screen ing [facility] Start: 01-24-2024 Tobacco Screening Tobacco Screening [facility] Start: 02-19-2023 End: 02-19-2023 Patient encounter procedure 02/19/2023 11:00 AM EST Appointment [facility] [address] [place] [id number] [facility] Start: 02-06-2023 End: 02-06-2023 ambulatory 02/06/2023 1:00 PM EST Initial [facility] [address] [place] [id number] [facility] Start: 02-01-2023 End: 02-01-2023 Patient encounter procedure 02/01/2023 3:00 PM EST Office Visit [facility]- [facility] at [facility] [address] [place] [phone] Quinton Arita MD [address], [address] [place] [id number] [facility] Start: 10-06-2022 Influenza vaccination Influenza Vacc ine [facility] Start: 04-27-2022 Urine screening for protein Urine Microalbumin [facility] Start: 02-01-2022 [facility] Work Phone: Start: 02-01-2022 Patient discharge [facility] Work Phone: Start: 02-01-2022 Patient transfer [facility] Work Phone: Start: 01-31-2022 Referral to ear, nos e and throat service [facility] Work Phone: Start: 01-31-2022 End: 01-31-2022 [facility] Work Phone: Start: 01-31-2022 Notification of physician [facility] Work Phone: Start: 01-31-2022 Catheterization of vein [facility] Work Phone: Start: 01-31-2022 Hospital admission, emergency, from emergency room [facility] Work Phone: Start: 01-31-2022 Vital signs measurements [facility] Work Phone: Start: 2018 Adult BMI Follow Up Plan Adult BMI Follow Up Plan [facility] Start: 2018 Diabetic foot examination Diabetic F oot Exam [facility] Start: 2000 COVID-19 Vaccine (#1) COVID-19 Vacci ne (#1) [facility] Start: 2000 Glaucoma screening Diabetic Op hthalmology Exam [facility] Bicarbonate [Moles/volume] in Blood [facility] Work Phone: Delta base, blood [facility] Work Phone: Measurement of venou s partial pressure of carbon dioxide [facility] Work Phone: Measurement of venou s partial pressure of oxygen [facility] Work Phone: Methicillin resistan t Staphylococcus aureus (MRSA) DNA [Presence] in Unspecified specimen by ROQUE with probe detection [facility] Work Phone: Methicillin resistan t Staphylococcus aureus [Presence] in Unspecified specimen by Organism specific culture [facility] Work Phone: Oxygen saturation in Venous blood [facility] Work Phone: Patient Education Tooth Abscess (DC) Diabetic Ketoacidosis (DC) [facility] Work Phone: Patient referral [facility] Work Phone: Vancomycin resistanc e Francisco gene [Presence] by Molecular method [facility] Work Phone: Immunizations Immunization Date Immunization Notes Care Provider Qamar calhoun 04-20-2020 measles, mumps and rubella virus vaccine Anjali Andino [facility] 03-25-2020 tetanus toxoid, redu jonathan diphtheria toxoid, and acellular pertussis vaccine, adsorbed Anjali Andino [facility] 10-24-2019 influenza, injectabl e, quadrivalent, preservative free [facility] 10-24-2019 influenza virus vacc ine, unspecified formulation [facility] 11-22-2018 influenza, injectabl e, quadrivalent, preservative free [facility] 03-22-2018 influenza virus vacc ine, unspecified formulation [facility] 03-20-2018 influenza, injectabl e, quadrivalent, preservative free [facility] 11-28-2016 influenza, injectabl e, quadrivalent, preservative free [facility] 11-28-2016 meningococcal polysaccharide (groups A, C, Y and W-135) diphtheria toxoid conjugate vaccine (MCV4P) [facility] 09-27-2015 hepatitis A vaccine, pediatric/adolescent dosage, 2 dose schedule [facility] 09-27-2015 Human Papillomavirus 9-valent vaccine [facility] 03-03-2014 Human Papillomavirus 9-valent vaccine [facility] 03-03-2014 tetanus toxoid, redu jonathan diphtheria toxoid, and acellular pertussis vaccine, adsorbed [facility] 12-02-2012 influenza, seasonal, injectable, preservative free [facility] 07-24-2012 hepatitis A vaccine, pediatric/adolescent dosage, 2 dose schedule [facility] 07-24-2012 meningococcal polysaccharide (groups A, C, Y and W-135) diphtheria toxoid conjugate vaccine (MCV4P) [facility] 07-24-2012 tetanus toxoid, redu jonathan diphtheria toxoid, and acellular pertussis vaccine, adsorbed [facility] 09-15-2004 diphtheria, tetanus toxoids and acellular pertussis vaccine [facility] 09-15-2004 measles, mumps and rubella virus vaccine [facility] 09-15-2004 poliovirus vaccine, inactivated [facility] 04-16-2002 diphtheria, tetanus toxoids and acellular pertussis vaccine, unspecified formulation [facility] 04-16-2002 haemophilus influenz ae type b vaccine, conjugate unspecified formulation [facility] 04-16-2002 hepatitis B vaccine, pediatric or pediatric/adolescent dosage [facility] 04-16-2002 measles, mumps and rubella virus vaccine [facility] 04-16-2002 poliovirus vaccine, unspecified formulation [facility] 2000 diphtheria, tetanus toxoids and acellular pertussis vaccine, unspecified formulation [facility] 2000 haemophilus influenz ae type b conjugate and Hepatitis B vaccine [facility] 2000 poliovirus vaccine, inactivated [facility] 2000 diphtheria, tetanus toxoids and acellular pertussis vaccine, unspecified formulation [facility] 2000 pneumococcal conjuga te vaccine, 7 valent [facility] 2000 diphtheria, tetanus toxoids and acellular pertussis vaccine, unspecified formulation [facility] 2000 haemophilus influenz ae type b conjugate and Hepatitis B vaccine [facility] 2000 pneumococcal conjuga te vaccine, 7 valent [facility] 2000 poliovirus vaccine, inactivated [facility] Payers Date Payer Category Payer Private Health Insurance [facility] [id number] 2022-Present [phone] [address] [place] [address] [id number] 2022 Private Health Insurance [id number] 2017 Unknown [employer] PPO/TRUST [id number] 2017-Present [phone] [address] [place] [address] [id number] 2000 Unknown [id number] [id number]. 2.593 2000 Unknown [id number] [id number]. 2.1259 2000 Unknown [id number] 2.16.840.1.594117.3.579. 2.1259 2000 Unknown [id number] 2.16.840.1.226322.3.579. 2.1259 2000 Unknown [id number] 2.16.840.1.463852.3.579. 2.1259 2000 Unknown [id number] 2.16.840.1.143781.3.579. 2.1286 2000 Unknown [id number] 2.16.840.1.067143.3.579. 2.1286 2000 Unknown [id number] 2.16.840.1.770878.3.579. 2.1286 2000 Unknown [id number] 2.16.840.1.222523.3.579. 2.1286 2000 Unknown [id number] 2.16.840.1.697703.3.579. 2.1286 1959 Unknown [id number] 1959 Unknown [id number] Self-pay Unknown [id number]. 2.139 Social History Date Type Detail Facility Start: 01-31-2022 Tobacco smoking stat us [facility]IS Never smoked tobacco (finding) [facility] Work Phone: Start: 01-31-2022 None [facility] Work Phone: Start: 01-31-2022 < 1 pack per day [facility] Work Phone: Start: 01-31-2022 Yes [facility] Work Phone: Start: 01-31-2022 Nicotine [facility] Work Phone: Start: 2000 Sex Assigned At Female L [facility] Work Phone: Start: 07-22-2022 Tobacco smoking stat us [facility] Ex-smoker [facility] History of tobacco use Current smoker [facility] History of tobacco use Cigarette Smoker P [facility] History of tobacco use Tobacco U se Types Packs/Day Years Used Date Smoking Tobacco: Former Cigarettes 0 Vaping/E-cigarettes Smokeless Tobacco: Never [facility] Start: 07-22-2022 Tobacco use and exposure Smokeless tobacco non-user [facility] Start: 01-23-2023 Alcohol intake Ex-drinker (finding) [facility] Start: 10-11-2019 End: 02-17-2020 History of Social function [facility] Start: 10-11-2019 End: 02-17-2020 Social connection and isolation panel [facility] Do you belong to any clubs or organizations such as sabianism groups, unions, fraternal or athletic groups, or school groups? No [facility] Are you now , , , , never or living with a partner? Never [facility] How hard is it for y ou to pay for the very basics like food, housing, medical care, and heating Not hard at all [facility] Do you feel stress - tense, restless, nervous, or anxious, or unable to sleep at night because your mind is troubled all the time - these days [OSQ] Not at all [facility] The thought of harmi ng myself has occurred to me Never [facility] Start: 12-18-2018 Alcohol Comment occassional [facility] Start: 06-23-2022 [facility] Start: 05-13-2018 Gender identity Identifies as female gender (finding) [facility] Start: 05-13-2018 Sexual orientation Heterosexual (fin ding) [facility] NEGATED: Highlighted row [facility] Work Phone: Medical Equipment Procedure Code Equipment Code Equipment Origin al Text Equipment Identifier Dates 1 strip by miscellaneous route every 4 (four) hours as needed (illness or hyperglycemia). [id number] Start: 08-30-2022 Use in case of p ump failure [id number] Start: 09-27-2022 Accu-Chek Fastcl ix Lancets- Use to test blood glucose 8 times daily as directed. [id number] Start: 08-30-2022 BD Nettie Pen Need les Use as directed to give insulin injections via insulin pen up to 8 times daily [id number] Start: 05-31-2022 5 injections daily [id number] Start: 08-30-2022 Goals Date Patient Goal Desired Activity /State Personal health goal Comment on above: Formatting of this n ote might be different from the original. Evaluation of progress towards goal: Safe dc transition from hospital to home. Functional Status Date Assessment Result Facility 01-31-2022 Functional status Yes [facility] Work Phone: Mental Status Date Assessment Result Facility 01-31-2022 Cognitive function Oriented to P erson, Place and Time [facility] Work Phone: Discharge summary note 02-01-2022 Note Date & Type Note Facility 02-01-2022 Note [facility] Medical Records Patient: JAYY NGUYEN. : [address] [place], [place] [address] Location: ICU [phone] Unit #: [id number] Discharge Summary Tee Buck PA-C Patient Information [...] Reconciliation: New amoxicilli (more content not included)... [facility] History and physical note 01-31-2022 Note Date & Type Note Facility 01-31-2022 Note [facility] Medical Records Patient: JAYY NGUYEN. : [address] [place], [place] [address] Location: ICU [phone] [facility]: [id number] History and Physical Joe Ulloa CNP Date [...] at 150 ml/h (more content not included)... [facility] Evaluation note Note Date & Type Note Facility Evaluation note Diagnosis Onset Date Dental infection acute Diabetes type I acute Diabetic ketoacidosis acute [facility] Work Phone: Evaluation note Note Date & Type Note Facility Evaluation note Diagnosis Onset Date Dental infection acute Diabetes type I acute Diabetic ketoacidosis resolv ed [facility] Work Phone: Evaluation note Note Date & Type Note Facility Evaluation note Diagnosis Pre-existing type 1 diabetes mellitus during in third trimester- Primary History of stillbirth in patient in third trimester, antepartum documented in this encounter [facility] Discharge instructions Note Date & Type Note Facility Hospital Discharge instructions Additional Instructions Activity: No restrictions Diet: No restrictions Driving instructions: No driving restrictions Bathing Instructions: No restrictions Follow Up Labs/X Rays/Procedures after discharge: [facility] Work Phone: Instructions Note Date & Type Note Facility Instructions Not on filedocumented in this en counter [facility] Summary Purpose Family History No Family History Records Found Relationship Condition Age at Onset Recorded Date/T john Not Specified No pertinent family history Unknown Advance Directives No Advanced Directives Records Found Advance Directive Response Recorded Date/ Time [facility] DNR Comfort Care No Directive, No SS Referral February 01, 2022 1:55pm [facility] DNR Comfort Ca re Arrest No Directive, No SS Referral February 01, 2022 1:55p m Living Will Unknown January 31, 2 022 4:13am Durable Power of Supervisor Pairing And Inspecting [facility] Care No Directive, No SS Referral February [...] MD [address] [place] [address] [facility] [address] [place] [address] Referral ID Status Reason Start Date Expiration Date V isits Requested Visits Authorized [id number] Pending Review 02/01/2023 02/01/2024 1 1 Additional Source Comments INFORMATION SOURCE (unrecogn ized section and content) DATE CREATED AUTHOR 06/28/2021 [facility] pital DATE CREATED AUTHOR AUTHOR'S ORGANIZ ATION 02/01/2022 [facility] DATE CREATED AUTHOR AUTHOR'S ORGANIZ ATION 02/02/2023 [facility] EPIC DATE CREATED AUTHOR AUTHOR'S ORGANIZ ATION 02/11/2023 [facility] Goals (unrecognized section and content) Goals may be documented in a n alternate sectionGoals may be documented in an alternate section Care Teams (unrecognized sec tion and content) Scientific Programmer Analyst Relationship Specialty Start Date End Date Services, [address] [place], [place] PCP - General Family Medicine 03/03/18 [...] BE BASED ON THE PRIMARY CLINICAL RECORDS. [facility] [employer] [facility] provides no warranty or guarantee of the accuracy or completeness of information in this document.
== END 2023-02-14 07:02 | disposition home or self-care (01) ==
LOC: FBCO 07:01
PROVIDERS: Visit Provider Obstetrics & Gynecology
DX: O41.03X0 Oligohydramnios, third trimester, not applicable or unspecified (principal); Z3A.35 35 weeks gestation of pregnancy
CPT/HCPCS: 76815

== ENCOUNTER 2023-10-31 17:01 | Emergency (ER) | payer BC, OTHER, SELFPAY ==
[2023-10-31 17:05] VITALS: BP 124/82; PULSE 110; TEMP 37.4; O2SAT 98; BMI 29.9
--- OUTSIDE RECORDS SUMMARY | 2023-10-31 17:10 | XMS_ITS | CCD ---
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 nucleic acid amplification. This does not exclude the possibility of infection because results are dependent on adequate specimen collection. GONORRHOEAE DNA(PCR) Negative (qualifier value) Neisseria gonorrhoeae not detected by nucleic acid amplification. This does not exclude the possibility of infection because results are dependent on adequate specimen collection. Normal [facility] Comment on above: Performed By: #### Makenzie ####[facility] ([id number])[address] [address] COMPLETE BLOOD COUNTon 02-16 Erythrocyte distribution width (RBC) [Ratio] 13.7 % Normal 11.5-15.0 [facility] Comment on above: Performed By: #### Makenzie PARADA, 32061-3 ####[facility] ([id number])[address] [address] Hematocrit (Bld) [Volume fraction] 33.5 % Low 35-47 [facility] Comment on above: Performed By: #### Makenzie PARADA, 74459-2 ####[facility] ([id number])[address] [address] Hemoglobin (Bld) [Mass/Vol] 11.9 g/dL Normal 11.7-15.5 [facility] Comment on above: Performed By: #### Makenzie PARADA, 40294-1 ####[facility] ([id number])[address] [address] MCH (RBC) [Entitic mass] 27.4 pg Normal 27-34 [facility] Comment on above: Performed By: #### Makenzie PARADA, 73330-0 ####[facility] ([id number])[address], [address], [place] [address] MCHC (RBC) [Mass/Vol] 35.5 g/dL Normal 32-36 [facility] Comment on above: Performed By: #### Makenzie PARADA, 11188-9 ####[facility] ([id number])[address] [address], [place] [address] MCV (RBC) [Entitic vol] 77 fL Low 80-100 P [facility] Comment on above: Performed By: #### Makenzie PARADA, 31750-1 ####[facility] ([id number])[address] [address], [place] [address] Platelet mean volume (Bld) [Entitic vol] 9.4 fL Normal 7-12 [facility] Comment on above: Performed By: #### Makenzie PARADA, 16803-5 ####[facility] ([id number])[address] [address] [place] [address] Platelets (Bld) [#/Vol] 237 10*3/uL Normal 150-450 [facility] Comment on above: Performed By: #### Makenzie PARADA, 27102-4 ####[facility] ([id number])0 [facility] [address] [place] [address] RBC COUNT 4.35 X10E12/L Normal 3.80-5.20 [facility] Comment on above: Performed By: #### Makenzie PARADA, 63550-2 ####[facility] ([id number])0 [facility] [address], [place] [address] WBC (Bld) [#/Vol] 18.3 10*3/uL High 4.0-11.0 [facility] Comment on above: Performed By: #### C , 91869-2 ####[facility] ([id number])[address], [address] [place] [address] DRUG SCREEN, URINEon 024 AMPHETAMINE/METHAMP Negative Normal NEG [facility] Comment on above: Result Comment: AMPH /METH screening cut off = 1000 ng/mL Performed By: #### D CARREON ####[facility] ([id number])[address], [address] [place] [address] BARBITURATES Negative Normal NEG [facility] Comment on above: Result Comment: Lorena iturates screening cut off value = 200 ng/mL Performed By: #### D CARREON ####[facility] ([id number])[address], [address] [place] [address] BENZODIAZEPINES Negative Normal NEG [facility] Comment on above: Result Comment: See odiazepines screening cut off value = 200 ng/mL Performed By: #### D CARREON ####[facility] ([id number])[address], [address] [place] [address] CANNABINOIDS Negative Normal NEG [facility] Comment on above: Result Comment: Sandra abinoids/THC screening cut off value = 50 ng/mL Performed By: #### D CARREON ####[facility] ([id number])[address], [address] [place] [address] COCAINE METABOLITE Negative Normal NEG [facility] Comment on above: Result Comment: Coca ine screening cut off value = 300 ng/mL Performed By: #### D CARREON ####[facility] ([id number])[address], [address] [place] [address] ECSTASY Negative Normal NEG [facility] Comment on above: Result Comment: Ecst asy screening cut off value = 500 ng/mL This report is intended for use in clinical monitoring or management of patients. Performed By: #### D CARREON ####[facility] ([id number])[address], [address] [place] [address] METHADONE Negative Normal NEG [facility] Comment on above: Result Comment: Meth adone screening cut off value = 300 ng/mL. Performed By: #### D CARREON ####[facility] ([id number])[address], [address] [place] [address] OPIATES Negative Normal NEG [facility] Comment on above: Result Comment: Opia shelly screening cut off value = 300 ng/mL NOTE: This test is used for the detection of codeine, hydrocodone (>1000 ng/mL), morphine and hydromorphone (>900 ng/mL) in urine. Performed By: #### D CARREON ####[facility] ([id number])0 [facility] [address] [place] [address] OXYCODONE Negative Normal NEG [facility] Comment on above: Result Comment: Oxyc odone screening cut off value = 300 ng/mL NOTE: This test is used for the detection of oxycodone and oxymorphone in urine. Performed By: #### D CARREON ####[facility] ([id number])[address], [address] [place] [address] PHENCYCLIDINE Negative Normal NEG [facility] Comment on above: Result Comment: Phen cyclidine screening cut off value = 25 ng/mL Performed By: #### D CARREON ####[facility] ([id number])[address], [address] [place] [address] Glucose Glucometer (BldC) [M ass/Vol]on 02-16-2023 Glucose [Mass/Vol] 221 mg/dL High 65-99 [facility] T. pallidum IgG+IgM IA Ql (S )on 02-16-2023 Syphilis Total 0.2 AI Normal 0.0-0.8 [facility] Comment on above: Result Comment: NON REACTIVE No serologic evidence of infection to Treponema pallidum (syphilis). Repeat testing may be considered in patients with suspected acute or primary syphilis in 2 to 4 weeks. Performed By: #### C , 80601-6 ####[facility] ([id number])[address] [place] [address], [address] [place] [address] Glucose Glucometer (BldC) [M ass/Vol]on 02-10-2023 Glucose [Mass/Vol] 89 mg/dL Normal 65-99 [facility] Glucose [Mass/Vol] 107 mg/dL High 65-99 [facility] Glucose [Mass/Vol] 70 mg/dL Normal 65-99 [facility] Glucose [Mass/Vol] 85 mg/dL Normal 65-99 [facility] Glucose [Mass/Vol] 59 mg/dL Low 65-99 [facility] Glucose [Mass/Vol] 42 mg/dL Critically low 65-99 [facility] Gl[facility] [Mass/Vol] 131 mg/dL High 65-99 [facility] Glucose Glucometer (BldC) [M ass/Vol]on 02-09-2023 Glucose [Mass/Vol] 206 mg/dL High 65-99 [facility] Glucose [Mass/Vol] 117 mg/dL High 65-99 [facility] Glucose [Mass/Vol] 113 mg/dL High 65-99 [facility] Glucose Glucometer (BldC) [M ass/Vol]on 02-08-2023 Glucose [Mass/Vol] 134 mg/dL High 65-99 [facility] Glucose [Mass/Vol] 162 mg/dL High 65-99 [facility] Glucose [Mass/Vol] 152 mg/dL High 65-99 [facility] Glucose [Mass/Vol] 73 mg/dL Normal 65-99 [facility] Glucose Glucometer (BldC) [M ass/Vol]on 02-07-2023 Glucose [Mass/Vol] 156 mg/dL High 65-99 [facility] Glucose [Mass/Vol] 118 mg/dL High 65-99 [facility] Glucose [Mass/Vol] 145 mg/dL High 65-99 [facility] Glucose [Mass/Vol] 119 mg/dL High 65-99 [facility] Glucose [Mass/Vol] 54 mg/dL Low 65-99 [facility] Glucose [Mass/Vol] 50 mg/dL Critically low 65-99 Pr [facility] STREP B SCREEN CULTUREon S. agalactiae Org specific cx Ql (Vag+Rectum) CULTURE RESULTS NEGATIVE FOR GROUP B STREPTOCOCCUS BY NUCLEIC ACID AMPLIFICATION Normal [facility] Comment on above: Performed By: #### C BCA, 6873-4, CMP #### [facility] ([id number]) [address] [facility], [address] [place] [address] Glucose Glucometer (BldC) [M ass/Vol]on 02-06-2023 Glucose [Mass/Vol] 86 mg/dL Normal 65-99 [facility] Glucose [Mass/Vol] 116 mg/dL High 65-99 [facility] Glucose [Mass/Vol] 137 mg/dL High 65-99 [facility] Glucose [Mass/Vol] 220 mg/dL High 65-99 [facility] Glucose [Mass/Vol] 94 mg/dL Normal 65-99 [facility] Glucose [Mass/Vol] 47 mg/dL Critically low 65-99 Pr [facility] Glucose [Mass/Vol] 39 mg/dL Critically low 65-99 Pr [facility] Glucose Glucometer (BldC) [M ass/Vol]on 02-05-2023 Glucose [Mass/Vol] 155 mg/dL High 65-99 [facility] Glucose [Mass/Vol] 103 mg/dL High 65-99 [facility] Glucose [Mass/Vol] 84 mg/dL Normal 65-99 [facility] Glucose [Mass/Vol] 92 mg/dL Normal 65-99 [facility] Glucose [Mass/Vol] 61 mg/dL Low 65-99 [facility] Glucose [Mass/Vol] 50 mg/dL Critically low 65-99 [facility] Glucose Glucometer (BldC) [M ass/Vol]on 12-31-2023 Glucose [Mass/Vol] 103 mg/dL High 65-99 [facility] Glucose [Mass/Vol] 125 mg/dL High 65-99 [facility] Glucose [Mass/Vol] 112 mg/dL High 65-99 [facility] Glucose [Mass/Vol] 91 mg/dL Normal 65-99 [facility] Glucose [Mass/Vol] 71 mg/dL Normal 65-99 [facility] Glucose Glucometer (BldC) [M ass/Vol]on 02-03-2023 Glucose [Mass/Vol] 159 mg/dL High 65-99 [facility] Glucose [Mass/Vol] 115 mg/dL High 65-99 [facility] Glucose [Mass/Vol] 105 mg/dL High 65-99 [facility] Glucose Glucometer (BldC) [M ass/Vol]on 02-02-2023 Glucose [Mass/Vol] 140 mg/dL High 65-99 [facility] Glucose [Mass/Vol] 125 mg/dL High 65-99 [facility] Glucose [Mass/Vol] 135 mg/dL High 65-99 [facility] Glucose [Mass/Vol] 107 mg/dL High 65-99 [facility] Glucose [Mass/Vol] 145 mg/dL High 65-99 [facility] Glucose [Mass/Vol] 188 mg/dL High 65-99 [facility] POTASSIUMon 02-02-2023 Potassium [Moles/Vol] 4.0 mmol/L Normal 3.5-5.0 [facility] Comment on above: Performed By: #### 2 823-3 ####[facility] ([id number])[address], [address] [place] [address] Potassium [Moles/Vol] 3.6 mmol/L Normal 3.5-5.0 [facility] Comment on above: Performed By: #### 2 823-3 #### [facility] ([id number]) [address], [address] [place] [address] [place] [address] Beta hydroxybutyrate [Moles/ Vol]on 02-01-2023 BetaHydroxybutyrate 0.80 mmol/L High 0.02-0.27 [facility] Comment on above: Performed By: #### Makenzie STEIN, 6873-4, CMP #### [facility] ([id number]) [address], [address] [place] [address] CBC AND AUTO DIFFon 02-02-20 ABSOLUTE BASOPHIL 0.0 X10E9/L Normal 0.0-0.2 [facility] Comment on above: Performed By: #### Makenzie STEIN, 6873-4, CMP #### [facility] ([id number]) [address], [facility] [address] [place] [address] ABSOLUTE NEUTROPHIL 11.4 X10E9/L High 1.5-6.6 [facility] Comment on above: Performed By: #### Makenzie STEIN 6873-4, CMP #### [facility] ([id number]) [address], [address] [place] [address] Basophils/100 WBC (Bld) 0.2 % Normal [facility] Comment on above: Performed By: #### Makenzie STEIN, 6873-4, CMP #### [facility] ([id number]) [address], [address] [place] [address] Eosinophils (Bld) [#/Vol] 0.1 10*3/uL Normal 0.0-0.4 [facility] Comment on above: Performed By: #### Makenzie STEIN 6873-4, CMP #### [facility] ([id number]) [address], [address] [place] [address] Eosinophils/100 WBC (Bld) 0.4 % Normal [facility] Comment on above: Performed By: #### Makenzie STEIN, 6873-4, CMP #### [facility] ([id number]) [address], [address] [place] [address] Erythrocyte distribution width (RBC) [Ratio] 13.5 % Normal 11.5-15.0 [facility] Comment on above: Performed By: #### Makenzie SETIN 6873-4, CMP #### [facility] ([id number]) [address] [address] [place] [address] Hematocrit (Bld) [Volume fraction] 33.0 % Low 35-47 [facility] Comment on above: Performed By: #### Makenzie STEIN 6873-4, CMP #### [facility] ([id number]) [address], [facility] [address] [place] [address] Hemoglobin (Bld) [Mass/Vol] 11.5 g/dL Low 11.7-15.5 [facility] Comment on above: Performed By: #### Makenzie STEIN 6873-4, CMP #### [facility] ([id number]) [address] [address] [place] [address] Lymphocytes (Bld) [#/Vol] 1.2 10*3/uL Normal 1.0-3.5 [facility] Comment on above: Performed By: #### Makenzie STEIN 6873-4, CMP #### [facility] ([id number]) [address] [address] [place] [address] Lymphocytes/100 WBC (Bld) 8.7 % Normal [facility] Comment on above: Performed By: #### Makenzie STEIN 6873-4, CMP #### [facility] ([id number]) [address], [facility] [address] [place] [address] MCH (RBC) [Entitic mass] 27.6 pg Normal 27-34 [facility] Comment on above: Performed By: #### Makenzie STEIN 6873-4, CMP #### [facility] ([id number]) [address], [facility] [address] [place] [address] MCHC (RBC) [Mass/Vol] 34.8 g/dL Normal 32-36 [facility] Comment on above: Performed By: #### Makenzie STEIN 6873-4, CMP #### [facility] ([id number]) [address], [address] [place] [address] MCV (RBC) [Entitic vol] 79 fL Low 80-100 P [facility] Comment on above: Performed By: #### Makenzie STEIN 6873-4, CMP #### [facility] ([id number]) [address], [address] [place] [address] Monocytes (Bld) [#/Vol] 0.6 10*3/uL Normal 0-0.9 [facility] Comment on above: Performed By: #### Makenzie STEIN 6873-4, CMP #### [facility] ([id number]) [address], [address] [place] [address] Monocytes/100 WBC (Bld) 4.5 % Normal [facility] Comment on above: Performed By: #### Makenzie STEIN 6873-4, CMP #### [facility] ([id number]) [address], [address] [place] [address] Neutrophils/100 WBC (Bld) 86.2 % Normal [facility] Comment on above: Performed By: #### Makenzie STEIN 6873-4, CMP #### [facility] ([id number]) [address], [address] [place] [address] Platelet mean volume (Bld) [Entitic vol] 9.4 fL Normal 7-12 [facility] Comment on above: Performed By: #### Makenzie STEIN 6873-4, CMP #### [facility] ([id number]) [address], [address] [place] [address] Platelets (Bld) [#/Vol] 211 10*3/uL Normal 150-450 [facility] Comment on above: Performed By: #### Makenzie STEIN, 6873-4, CMP #### [facility] ([id number]) [address], [address] [place] [address] RBC COUNT 4.16 X10E12/L Normal 3.80-5.20 [facility] Comment on above: Performed By: #### Makenzie STEIN 6873-4, CMP #### [facility] ([id number]) [address], [address] [place] [address] WBC (Bld) [#/Vol] 13.2 10*3/uL High 4.0-11.0 [facility] Comment on above: Performed By: #### Makenzie STEIN, 6873-4, CMP #### [facility] ([id number]) [address], [address] [place] [address] COMPREHENSIVE METABOLIC PANE [facility] 02-01-2023 Albumin [Mass/Vol] 3.3 g/dL Normal 3.2-5.3 [facility] Comment on above: Performed By: #### Makenzie STEIN 6873-4, CMP #### [facility] ([id number]) [address], [address] [place] [address] ALP [Catalytic activity/Vol] 127 U/L Normal 39-130 [facility] Comment on above: Performed By: #### Makenzie STEIN 6873-4, CMP #### [facility] ([id number]) [address], [address] [place] [address] ALT [Catalytic activity/Vol] 13 U/L Normal 0-31 [facility] Comment on above: Performed By: #### Makenzie STEIN 6873-4, CMP #### [facility] ([id number]) [address], [address] [place] [address] Anion gap [Moles/Vol] 9 mmol/L Normal 5-15 [facility] Comment on above: Performed By: #### Makenzie STEIN 6873-4, CMP #### [facility] ([id number]) [address], [address] [place] [address] AST [Catalytic activity/Vol] 19 U/L Normal 0-41 [facility] Comment on above: Performed By: #### C SARITA, 6873-4, CMP #### [facility] ([id number]) [address], [address] [place] [address] Bilirubin [Mass/Vol] 0.7 mg/dL Normal 0.3-1.2 [facility] Comment on above: Performed By: #### Makenzie STEIN 6873-4, CMP #### [facility] ([id number]) [address], [address] [place] [address] Calcium [Mass/Vol] 8.1 mg/dL Low 8.5-10.5 [facility] Comment on above: Performed By: #### Makenzie STEIN 6873-4, CMP #### [facility] ([id number]) [address], [address] [place] [address] Chloride [Moles/Vol] 103 mmol/L Normal 98-109 [facility] Comment on above: Performed By: #### Makenzie STEIN, 6873-4, CMP #### [facility] ([id number]) [address], [address] [place] [address] CO2 [Moles/Vol] 22 mmol/L Normal 22-32 [facility] Comment on above: Performed By: #### Makenzie STEIN, 6873-4, CMP #### [facility] ([id number]) [address], [address] [place] [address] Creatinine [Mass/Vol] 0.58 mg/dL Normal 0.40-1.00 [facility] Comment on above: Result Comment: METH OD TRACEABLE TO IDMS STANDARD Performed By: #### Makenzie STEIN, 6873-4, CMP #### [facility] ([id number]) [address] [facility] [address] [place] [address] eGFR (CKD-EPI) NON-RACE DEPENDENT >90 Normal >59 [facility] Comment on above: Result Comment: Reported eGFR is based on the CKD-EPI 2020 equation that does not use a race coefficient. Performed By: #### C SARITA, 6873-4, CMP #### [facility] ([id number]) [address] [facility] [address] [place], [place] [address] Glucose [Mass/Vol] 158 mg/dL High 65-99 [facility] Comment on above: Performed By: #### Makenzie STEIN, 6873-4, CMP #### [facility] ([id number]) [address] [address] Potassium [Moles/Vol] 3.3 mmol/L Low 3.5-5.0 [facility] Comment on above: Performed By: #### Makenzie STEIN, 6873-4, CMP #### [facility] ([id number]) [address] [address] Protein [Mass/Vol] 6.2 g/dL Normal 6.0-8.0 [facility] Comment on above: Performed By: #### Makenzie STEIN, 6873-4, CMP #### [facility] ([id number]) [address] [address] Sodium [Moles/Vol] 134 mmol/L Normal 134-146 [facility] Comment on above: Performed By: #### C BCA, 6873-4, CMP #### [facility] ([id number]) [address] [address] Urea nitrogen [Mass/Vol] 9 mg/dL Normal 5-23 [facility] Comment on above: Performed By: #### Makenzie BCA, 6873-4, CMP #### [facility] ([id number]) [address] [place] [address] Glucose Glucometer (BldC) [M ass/Vol]on 02-01-2023 Glucose [Mass/Vol] 153 mg/dL High 65-99 [facility] URINALYSISon 02-01-2023 Bilirubin Ql (U) Negative Normal NEG [facility] BLOOD/HGB Negative Normal NEG [facility] Color (U) YELLOW Normal YELLOW [facility] Glucose Ql (U) 1000 mg/dL Abnormal NEG [facility] Ketones Ql (U) 150 mg/dL Abnormal NEG [facility] Leukocyte esterase Test strip Ql (U) Negative Normal NEG [facility] Comment on above: Result Comment: HIGH CONCENTRATIONS OF GLUCOSE MAY DECREASE THE REACTIVITY OF THE DIPSTICK LEUKOCYTE TEST PAD. MUCOUS PRESENT Abnormal NONE [facility] Nitrite Ql (U) Negative Normal NEG [facility] pH (U) 6.0 [pH] Normal 5.0-8.5 [facility] Protein Ql (U) 30 mg/dL Abnormal NEG [facility] R.B.CELLS 1 /hpf Normal 0-5 [facility] Specific gravity (U) [Rel density] 1.030 Normal 1.003-1.035 [facility] SQUAMOUS EPITHELIUM 2 /hpf Normal 0-5 [facility] TURBIDITY CLEAR Normal CLEAR [facility] Urobilinogen (U) [Mass/Vol] mg/dL Normal <1.1 [facility] W.B.CELLS 4 /hpf Normal 0-5 [facility] Albumin [Mass/volume] in Ser um or Plasmaon 02-01-2022 Albumin [Mass/Vol] 3.5 g/dL 3.5-5.0 [facility] Work Phone: Basic Metabolic,Non-Fastingo n 02-01-2022 Anion gap [Moles/Vol] 7 mmol/L Normal 4-12 [facility] Comment on above: Performed By: #### L 400.7362, L400.2200, L400.9240 #### [facility] ([facility]) [address] [place] [address] Bjorn Washington MD Calcium [Mass/Vol] 8.20 mg/dL Low 8.8-10.5 [facility] Comment on above: Performed By: #### L 400.0202, L400.2200, L400.4800 #### [facility] ([facility]) [address] [place] [address] Bjorn Washington MD Chloride [Moles/Vol] 103 mmol/L Normal 101-111 [facility] Comment on above: Performed By: #### L 400.0202, L400.2200, L400.4800 #### [facility] ([facility]) [address] [place] [address] Bjorn Washington MD CO2 [Moles/Vol] 23 mmol/L Invalid Interpretation Code 21-32 [facility] Comment on above: Result Comment: Delt a: 17 on 02/01/22 Performed By: #### L 400.0202, L400.2200, L400.4800 #### Main [facility] ([facility]) [address] [place] [address] Bjorn Washington MD Creatinine [Mass/Vol] 0.56 mg/dL Low 0.60-1.30 [facility] Comment on above: Performed By: #### L 400.0202, L400.2200, L400.4800 #### Main [facility] ([facility]) [address] [place] [id number] Bjorn Washington MD GFR Calculation > [address] [facility] Comment on above: Result Comment: [employer] mau Kidney Disease stages by NKDF Stage eGFR I >90 II 60-89 III 30-59 IV 15-29 V <15 or dialysis AGE(years) AVERAGE GFR 20-29 116 ml/min/1.73 square meters Note:This result is normalized to 1.73 square meter body surface area. Height and weight are not factored. Performed By: #### L 400.0202, L400.2200, L400.4800 #### Main [facility] ([facility]) [address] [place] [address] Bjorn Washington MD Glucose [Mass/Vol] 224 mg/dL High 70-110 [facility] Comment on above: Performed By: #### L 400.0202, L400.2200, L400.4800 #### Main [facility] ([facility]) [address] [place] [address] Bjorn Washington MD Potassium [Moles/Vol] 4.0 mmol/L Normal 3.6-5.0 [facility] Comment on above: Performed By: #### L 400.0202, L400.2200, L400.4800 #### Main [facility] ([facility]) [address] [place] [address] Bjorn Washington MD Sodium [Moles/Vol] 133 mmol/L Low 135-145 [facility] Comment on above: Performed By: #### L 400.0202, L400.2200, L400.4800 #### Main [facility] ([facility]) [address] [place] [address] Bjorn Washington MD Urea nitrogen [Mass/Vol] 3 mg/dL Low 7-20 [facility] Comment on above: Performed By: #### L 400.0202, L400.2200, L400.4800 #### Main [facility] ([facility]) [address] [place] [address] Bjorn Washington MD Basophils Auto (Bld) [#/Vol] on 02-01-2022 Basophils (Bld) [#/Vol] 0 /cmm 0-200 L [facility] Work Phone: Basophils/100 WBC Auto (Bld) on 02-01-2022 Basophils/100 WBC (Bld) 0.4 % 0-2 L [facility] Work Phone: Blood anion gapon 02-01-2022 Anion gap (Bld) [Moles/Vol] 7 mmol/L 4-12 [facility] Work Phone: Blood coagulation panelon Blood coagulation panel 100 /cmm 0-500 L [facility] Work Phone: Blood hematocrit (volume fra ction)on 02-01-2022 Hematocrit (Bld) [Volume fraction] 35.9 % 35.0-44.0 [facility] Work Phone: Blood hemoglobin measurement (mass/volume)on 02-01-2022 Hemoglobin (Bld) [Mass/Vol] 13.0 g/dL 12.0-15.0 [facility] Work Phone: CBC with Differentialon 01-06 Abs Baso Count 0 /cmm Normal 0-200 [facility] Comment on above: Performed By: #### L 400.0202, L400.2200, L400.4800 #### Main Laboratory ([facility]) [address] [place] [address] Bjorn Washington MD Abs Eos Count 100 /cmm Normal 0-500 [facility] Comment on above: Performed By: #### L 400.0202, L400.2200, L400.4800 #### Main [facility] ([facility]) [address] [place] [address] Bjorn Washington MD Abs Lymph Count 2100 /cmm Normal 8039-2225 [facility] Comment on above: Performed By: #### L 400.0202, L400.2200, L400.4800 #### Main Laboratory ([facility]) [address] [place] [address] Bjorn Washington MD Abs Schleicher Count 600 /cmm Normal 0-800 [facility] Comment on above: Performed By: #### L 400.0202, L400.2200, L400.4800 #### Main Laboratory ([facility]) [address] [place], [facility] Bjorn Washington MD Abs Neut Count 8100 /cmm High 3934-6385 [facility] Comment on above: Performed By: #### L 400.0202, L400.2200, L400.4800 #### Main [facility] ([facility]) [address] [place], [facility] Bjorn Washington MD Basophils/100 WBC (Bld) 0.4 % Normal 0-2 L [facility] Comment on above: Performed By: #### L 400.0202, L400.2200, L400.4800 #### Main [facility] ([facility]) [address] [place], [facility] Bjorn Washington MD EOS-Auto Diff 0.6 % Normal 0-6 [facility] Comment on above: Performed By: #### L 400.0202, L400.2200, L400.4800 #### Main Laboratory ([facility]) [address] [place] [address] Bjorn Washington MD Erythrocyte distribution width (RBC) [Ratio] 14.2 % Normal 12.0-16.0 [facility] Comment on above: Performed By: #### L 400.0202, L400.2200, L400.4800 #### Main Laboratory ([facility]) [address] [place], [facility] Bjorn Washington MD Hematocrit (Bld) [Volume fraction] 35.9 % Normal 35.0-44.0 [facility] Comment on above: Performed By: #### L 400.0202, L400.2200, L400.4800 #### Main [facility] ([facility]) [address] [place] [address] Bjorn Washington MD Hemoglobin (Bld) [Mass/Vol] 13.0 g/dL Normal 12.0-15.0 [facility] Comment on above: Performed By: #### L 400.0202, L400.2200, L400.4800 #### Main Laboratory ([facility]) [address] [place] [address] Bjorn Washington MD Lymphocytes/100 WBC (Bld) 19.2 % Invalid Interpretation Code 15-45 [facility] Comment on above: Result Comment: Delt a: 6.1 on 01/31/22 Performed By: #### L 400.0202, L400.2200, L400.4800 #### Main [facility] ([facility]) [address] [place] [address] Bjorn Washington MD MCH (RBC) [Entitic mass] 27.5 pg Normal 27.5-33.0 [facility] Comment on above: Performed By: #### L 400.0202, L400.2200, L400.4800 #### Main [facility] ([facility]) [address] [place] [address] Bjorn Washington MD MCHC (RBC) [Mass/Vol] 35.7 g/dL Normal 33.0-36.0 [facility] Comment on above: Performed By: #### L 400.0202, L400.2200, L400.4800 #### Main Laboratory ([facility]) [address] [place] [address] Bjorn Washington MD MCV 77.0 CU ANDREW Low 80-97 [facility] Comment on above: Performed By: #### L 400.0202, L400.2200, L400.4800 #### Main Laboratory ([facility]) [address] [place] [address] Bjorn Washington MD Schleicher- Auto Diff 5.6 % Normal 2-10 [facility] Comment on above: Performed By: #### L 400.0202, L400.2200, L400.4800 #### Main [facility] ([facility]) [address] [place] [address] Bjorn Washington MD Neut-Auto Diff 74.2 % High 40-70 [facility] Comment on above: Performed By: #### L 400.0202, L400.2200, L400.4800 #### Main [facility] ([facility]) [address] [place] [address] Bjorn Washington MD NRBC-Auto 0.1 /100 WBC Normal <1 [facility] Comment on above: Performed By: #### L 400.0202, L400.2200, L400.4800 #### Main Laboratory ([facility]) [address] [place] [address] Bjorn Washington MD Platelet Count 249 th/cmm Normal 150-400 [facility] Comment on above: Performed By: #### L 400.0202, L400.2200, L400.4800 #### Main Laboratory ([facility]) [address] [place] [address] Bjorn Washington MD RBC 4.66 mil/cmm Normal 4.00-5.10 [facility] Comment on above: Performed By: #### L 400.0202, L400.2200, L400.4800 #### Main Laboratory ([facility]) [address] [place] [id number] Bjorn Washington MD WBC 10.9 th/cmm High 4.4-10.5 [facility] Comment on above: Performed By: #### L 400.0202, L400.2200, L400.4800 #### Main Laboratory ([facility]) [address] [place] [address] Bjorn Washington MD Case Management Admissionon 02-01-[address] [facility] Case Management Patient: SAVI NGUYEN [address] : [address] [place] [address] Location: ICU [phone] [id number] Admission Nancy Huntley RN Service Date: 01/31/22 Case Mgmt Admission/Disch Plan - Patient Preferences AND Goals What is the patient's preference?: Services to be Determined Recommended acute discharge goals: Services to be Determined - Hospital Stay Day Day 1 Comment: 01/31/22 Pt is here for DKA/sepsis. Patient is type I diabetic. Pt has [employer] insurance. Awaiting ENT consulted for mouth abcess. Pt lives with her significant other and daughter. Pt is independent with ADLs and drives. Pt on Augmentin. Pt reports she has all supplies at home to manage DM including cont reader and insulin pump. Patient did not report a PCP but states she goes not [facility] in [place]. Council Member: Nancy Huntley, RN Day 2 Comment: 02/01/22 Pt drowsy and fallimng asleep during conversation with CM during CM rounding, patient denies any homegoing service/dme needs at this time including HHC. Council Member: Nancy Huntley, RN - Demographics Current Diagnosis(s): DKA. Sepsis Information Given by: Patient Primary Insurance: [employer] Secondary Insurance: [employer] Prescription Coverage: Yes Family/Caregiver Contact: Mi Nguyen Relationship: mother Does the patient have VA services?: No Does the patient have a [facility] provider?: No - Readmission Information Was the patient readmitted within the past 30 days?: No Where was the patient admitted from?: Home Does Patient have any Services in Place?: No - Healthcare Decisions Code Status Per Patient Request (Full Code, DNRCC, DNRCCA): Full Code Durable Power of Corn Shredder for Health Care: No Directive, No SS Referral [facility] DNR Comfort Care: No Directive, No SS Referral State [facility] DNR Comfort Care Arrest: No Directive, No SS Referral - Mental Status Prior Mental Status: Alert and Oriented Current Mental Status: Alert and Oriented - Living Situation Home Situation: Lives with Significant Other Home Type: Single Family Home Does the patient drive?: Yes - Support System Support System: Relatives, Friends - Skilled Days Has patient been in a retirement facility in past 60 days: No Have [...] No If Yes to either question, notify Buffet Manager.: No - Discharge Plan Discharge Plan [...] Entered by: Nancy Huntley RN on 01/31/22 6923 Report Signed by: Nancy Huntley RN on 02/01/22 1358 < > Co-Signed by: on Normal [facility] Case Management Daily Noteon 02-01-[address] [facility] Case Management Patient: SAVI NGUYEN. : [address] [place], [place] [address] Location: ICU [phone] Unit #: [id number] Case Management Daily Note Nancy Huntley RN Service Date: 02/01/22 Case Mgmt Daily Note - Plan of Care Council Member Agrees with Attending and Consult Plan: Yes - Patient Preferences AND Goals What is the patient's preference?: Return Home, No Services Recommended acute discharge goals: Return Home, No Services - Hospital Stay Days Day 1 Comment: 01/31/22 Pt is here for DKA/sepsis. Patient is type I diabetic. Pt has [employer] insurance. Awaiting ENT consulted for mouth abcess. Pt lives with her significant other and daughter. Pt is independent with ADLs and drives. Pt on Augmentin. Pt reports she has all supplies at home to manage DM including cont reader and insulin pump. Patient did not report a PCP but states she goes not [facility] in [place]. Council Member: Nancy Huntley, RN Day 2 Comment: 02/01/22 Pt drowsy and fallimng asleep during conversation with CM during CM rounding, patient denies any homegoing service/dme needs at this time including HHC. Council Member: Nancy Huntley, RN - Transportation Mode of [...] 1409 < > Co-Signed by: on Normal [facility] Comprehensive Metabolic Pane leonila 02-01-2022 Albumin [Mass/Vol] 3.5 g/dL Normal 3.5-5.0 [facility] Comment on above: Performed By: #### L 702.1000 #### Main Laboratory ([facility]) [address] [place] [address] Bjorn Washington MD Albumin/Globulin [Mass ratio] 1.3 {ratio} Low 1.5-2.5 [facility] Comment on above: Performed By: #### L 702.1000 #### Main Laboratory ([facility]) [address] [place] [address] Bjorn Washington MD Alk Phos 74 IU/L Normal 39-118 [facility] Comment on above: Performed By: #### L 702.1000 #### Main Laboratory ([facility]) [address] [place] [address] Bjorn Washington MD ALT [Catalytic activity/Vol] 8 U/L Low 10-40 [facility] Comment on above: Performed By: #### L 702.1000 #### Main Laboratory ([facility]) [address] [place] [address] Bjorn Washington MD Anion gap [Moles/Vol] 11 mmol/L Normal 4-12 [facility] Comment on above: Performed By: #### L 702.1000 #### Main Laboratory ([facility]) [address] [place] [address] Bjorn Washington MD AST [Catalytic activity/Vol] 9 U/L Low 15-41 [facility] Comment on above: Performed By: #### L 702.1000 #### Main Laboratory ([facility]) [address] [place] [address] Bjorn Washington MD Bili,Total 0.7 mg/dL Normal 0.2-1.0 [facility] Comment on above: Performed By: #### L 702.1000 #### Main Laboratory ([facility]) [address] [place] [address] Bjorn Washington MD Calcium [Mass/Vol] 8.30 mg/dL Low 8.8-10.5 [facility] Comment on above: Performed By: #### L 702.1000 #### Main Laboratory ([facility]) [address] [place] [address] Bjorn Washington MD Chloride [Moles/Vol] 104 mmol/L Normal 101-111 [facility] Comment on above: Performed By: #### L 702.1000 #### Main Laboratory ([facility]) [address] [place] [address] Bjorn Washington MD CO2 [Moles/Vol] 17 mmol/L Low 21-32 [facility] Comment on above: Performed By: #### L 702.1000 #### Main Laboratory ([facility]) [address] [place] [address] Bjorn Washington MD Creatinine [Mass/Vol] 0.59 mg/dL Low 0.60-1.30 [facility] Comment on above: Performed By: #### L 702.1000 #### Main Laboratory ([facility]) [address] [place] [address] Bjorn Washington MD GFR Calculation > [address] [facility] Comment on above: Result Comment: [employer] mau Kidney Disease stages by NKDF Stage eGFR I >90 II 60-89 III 30-59 IV 15-29 V <15 or dialysis AGE(years) AVERAGE GFR 20-29 116 ml/min/1.73 square meters Note:This result is normalized to 1.73 square meter body surface area. Height and weight are not factored. Performed By: #### L 702.1000 #### Main [facility] ([facility]) [address] [place] [address] Bjorn Washington MD Glucose [Mass/Vol] 250 mg/dL High 70-110 [facility] Comment on above: Performed By: #### L 702.1000 #### Main Laboratory ([facility]) [address] [facility] Bjorn Washington MD Potassium [Moles/Vol] 3.7 mmol/L Normal 3.6-5.0 [facility] Comment on above: Performed By: #### L 702.1000 #### Main Laboratory ([facility]) [address] [place] [address] Bjorn Washington MD Protein [Mass/Vol] 6.1 g/dL Low 6.2-8.0 [facility] Comment on above: Performed By: #### L 702.1000 #### Main [facility] ([facility]) [address] [place] [address] Bjorn Washington MD Sodium [Moles/Vol] 132 mmol/L Low 135-145 [facility] Comment on above: Performed By: #### L 702.1000 #### Main [facility] ([facility]) [address] [place] [address] Bjorn Washington MD Urea nitrogen [Mass/Vol] 5 mg/dL Low 7-20 [facility] Comment on above: Performed By: #### L 702.1000 #### Main [facility] ([facility]) [address] [place] [address] Bjorn Washington MD Eosinophils/100 WBC Auto (Bl d)on 02-01-2022 Eosinophils/100 WBC (Bld) 0.6 % 0-6 [facility] Work Phone: Erythrocyte distribution wid th ratioon 02-01-2022 Erythrocyte distribution width (RBC) [Ratio] 14.2 % 12.0-16.0 [facility] Work Phone: Glucose (S/P/Bld) [Mass/Vol] on 02-01-2022 Glucose [Mass/Vol] 315 mg/dL High 70-110 [facility] Work Phone: Glycated Hemoglobinon 2021 Glycated Hemoglobin 9.8 % High 4.0-5.6 [facility] Comment on above: Result Comment: Hemo globin A1c values greater than or equal to 6.5 percent are diagnostic for diabetes mellitus. Diagnosis should be confirmed by repeat testing. In diabetic patients, HbA1c goals should be discussed with healthcare provider. Test Performed by: [address] [address] [employer] Manager: [employer] M.D. Ph.D.; CLIA# [id number] Performed By: #### L 400.0202, L400.2200, L400.4800 #### Main [facility] ([facility]) [address] [place] [address] Bjorn Washington MD Lymphocytes/100 WBC Auto (Bl d)on 02-01-2022 Lymphocytes/100 WBC (Bld) 19.2 % 15-45 [facility] Work Phone: Comment on above: Delta: 6.1 on -0530 MCH Auto (RBC) [Entitic mass ]on 02-01-2022 MCH (RBC) [Entitic mass] 27.5 pg 27.5-33.0 [facility] Work Phone: MCHC Auto (RBC) [Mass/Vol]on 02-01-2022 MCHC (RBC) [Mass/Vol] 35.7 g/dL 33.0-36.0 [facility] Work Phone: MCV Auto (RBC) [Entitic vol] on 02-01-2022 MCV (RBC) [Entitic vol] 77.0 CU ANDREW Low 80-97 [facility] Work Phone: Magnesiumon 02-01-2022 Magnesium [Mass/Vol] 1.9 mg/dL Normal 1.8-2.5 [facility] Comment on above: Performed By: #### L 400.0202, L400.2200, L400.3770 #### Main Laboratory ([facility]) [address] [place] [address] Bjorn Washington MD Magnesium [Mass/Vol] 1.5 mg/dL Low 1.8-2.5 [facility] Comment on above: Performed By: #### L 702.1000 #### Main Laboratory ([facility]) [address] [place] [address] Bjorn Washington MD Meter Glucoseon 02-01-2022 Glucose [Mass/Vol] 315 mg/dL High 70-110 [facility] Comment on above: Performed By: #### L 702.1000 #### Main Laboratory ([facility]) [address] [place] [address] Bjorn Washington MD Glucose [Mass/Vol] 201 mg/dL High 70-110 [facility] Comment on above: Performed By: #### L 702.1000 #### Main Laboratory ([facility]) [address] [place] [address] Bjorn Washington MD Glucose [Mass/Vol] 212 mg/dL High 70-110 [facility] Comment on above: Performed By: #### L 702.1000 #### Main [facility] ([facility]) [address] [place] [address] Bjorn Washington MD Glucose [Mass/Vol] 253 mg/dL High 70-110 [facility] Comment on above: Performed By: #### L 400.0202, L400.2200, L400.4800 #### Main Laboratory ([facility]) [address] [place] [address] Bjorn Washington MD Glucose [Mass/Vol] 145 mg/dL High 70-110 [facility] Comment on above: Performed By: #### L 702.1000 #### Main Laboratory ([facility]) [address] [place] [address] Bjorn Washington MD Glucose [Mass/Vol] 128 mg/dL High 70-110 [facility] Comment on above: Performed By: #### L 702.1000 #### Main Laboratory ([facility]) [address] [place] [address] Bjorn Washington MD Glucose [Mass/Vol] 222 mg/dL High 70-110 [facility] Comment on above: Performed By: #### L 400.0202, L400.2200, L400.4800 #### Main [facility] ([facility]) [address] [place] [address] Bjorn Washington MD Glucose [Mass/Vol] 107 mg/dL Normal 70-110 [facility] Comment on above: Performed By: #### L 400.0202, L400.2200, L400.4800 #### Main Laboratory ([facility]) [address] [place], [place] [address] Bjorn Washington MD Glucose [Mass/Vol] 245 mg/dL High 70-110 [facility] Comment on above: Performed By: #### L 400.0202, L400.2200, L400.4800 #### Main Laboratory ([facility]) [address] [place] [address] Bjorn Washington MD Monocytes Auto (Bld) [#/Vol] on 02-01-2022 Monocytes (Bld) [#/Vol] 600 /cmm 0-800 L [facility] Work Phone: Monocytes/100 WBC Auto (Bld) on 02-01-2022 Monocytes/100 WBC (Bld) 5.6 % 2-10 L [facility] Work Phone: Neutrophils/100 WBC Auto (Bl d)on 02-01-2022 Neutrophils/100 WBC (Bld) 74.2 % High 40-70 [facility] Work Phone: No Panel Informationon 02-01 Glomerular Filtration Rate Calc > 60 >60 [facility] Work Phone: Comment on above: AGE(years) AVERAGE G FR 20-29 116 ml/min/1.73 square metersNote:This result is normalized to 1.73 square meter body surface area. Height and weight are not factored.Chronic Kidney Disease stages by NKDFStage eGFR I >90 II 60-89 III 30-59 IV 15-29 V <15 or dialysis Absolute Lymphocytes (auto) 2100 /cmm [id number] [facility] Work Phone: Absolute Neutrophils (auto) 8100 /cmm High [phone] [facility] Work Phone: Nucleated RBC Auto (Bld) [#/ Vol]on 02-01-2022 Nucleated RBC (Bld) [#/Vol] 0.1 /100 WBC <1 [facility] Work Phone: Phosphoruson 02-01-2022 Phosphate [Mass/Vol] 2.3 mg/dL Low 2.4-4.7 [facility] Comment on above: Result Comment: Delt a: < 1.0 on 02/01/22 Performed By: #### L 702.1000 #### Main Laboratory ([facility]) [address] [place] [address] Bjorn Washington MD Phosphate [Mass/Vol] mg/dL Critically low 2.4-4.7 [facility] Comment on above: Result Comment: Crit ical Result S_PHOS:<1.0 Called to and read back by: AZAM PHILIPPE at: 02/01/2022 10:33:13 by:KMENGL Performed By: #### L 400.0202, L400.2200, L400.4800 #### Main Laboratory ([facility]) [address] [place] [address] Bjorn Washington MD Phosphate [Mass/Vol] 1.0 mg/dL Critically low 2.4-4.7 [facility] Comment on above: Result Comment: Crit ical Result S_PHOS:1.0 Called to and read back by: AZAM PHILIPPE at: 02/01/2022 09:18:42 by:KMENGL Performed By: #### L 702.1000 #### Main Laboratory ([facility]) [address] [place] [address] Bjorn Washington MD Platelets Auto (Bld) [#/Vol] on 02-01-2022 Platelets (Bld) [#/Vol] 249 th/cmm 150-400 L [facility] Work Phone: Progress Note - ENTon 2021 Progress Note - ENT [facility] Medical Records Patient: SAVI NGUYEN [address] : [address] [place], [place] [address] Location: ICU [phone] Unit #: [id number] Progress Note - ENT Good Calderon MD Service Dt/Tm: 02/01/221807 Assessment/Problem (1) Dental infection: Status: Acute Plan: [...] < > Report Signed by: on Normal [facility] Progress Note Critical Careo n 02-01-[address] [facility] Medical Records Patient: SAVI NGUYEN [address] : [address] [place], [place] [address] Location: ICU [phone] Unit #: [id number] Progress Note Critical Care Tee Buck PA-C [...] morning if necessary Plan DAILY ICU EVENTS: 12/27/22: Admit to ICU on DKA protocol CURRENT [...] (Phosphorus Replacement (more content not included)... Normal [facility] RBC Auto (Bld) [#/Vol]on RBC (Bld) [#/Vol] 4.66 mil/cmm 4.00-5.10 [facility] Work Phone: Serum or plasma alanine carpenter otransferase measurement (enzymatic activity/volume)on 02-01-2022 ALT [Catalytic activity/Vol] 8 U/L Low 10-40 [facility] Work Phone: [phone] Serum or plasma albumin/glob ulin mass ratioon 02-01-2022 Albumin/Globulin [Mass ratio] 1.3 {ratio} Low 1.5-2.5 [facility] Work Phone: Serum or plasma alkaline denice sphatase measurement (enzymatic activity/volume)on 02-01-2022 ALP [Catalytic activity/Vol] 74 U/L 39-118 [facility] Work Phone: Serum or plasma aspartate am inotransferase measurement (enzymatic activity/volume)on 02-01-2022 AST [Catalytic activity/Vol] 9 U/L Low 15-41 [facility] Work Phone: Serum or plasma calcium ruth ann urement (mass/volume)on 02-01-2022 Calcium [Mass/Vol] 8.20 mg/dL Low 8.8-10.5 [facility] Work Phone: [phone] Serum or plasma carbon dioxi de, total measurement (moles/volume)on 02-01-2022 CO2 [Moles/Vol] 23 mmol/L 21-32 [facility] Work Phone: Comment on above: Delta: 17 on Serum or plasma chloride desirae surement (moles/volume)on 02-01-2022 Chloride [Moles/Vol] 103 mmol/L 101-111 [facility] [employer] Work Phone: [phone] Serum or plasma creatinine m easurement (mass/volume)on 02-01-2022 Creatinine [Mass/Vol] 0.56 mg/dL Low 0.60-1.30 [facility] [employer] Work Phone: [phone] Serum or plasma glucose ruth ann urement (mass/volume)on 02-01-2022 Glucose [Mass/Vol] 224 mg/dL High 70-110 [facility] [employer] Work Phone: [phone] Serum or plasma magnesium me asurement (mass/volume)on 02-01-2022 Magnesium [Mass/Vol] 1.9 mg/dL 1.8-2.5 [facility] [employer] Work Phone: [phone] Serum or plasma phosphate me asurement (mass/volume)on 02-01-2022 Phosphate [Mass/Vol] 2.3 mg/dL Low 2.4-4.7 [facility] [employer] Work Phone: Comment on above: Delta: < 1.0 on 01/06 Serum or plasma potassium me asurement (moles/volume)on 02-01-2022 Potassium [Moles/Vol] 4.0 mmol/L 3.6-5.0 [facility] [employer] Work Phone: Serum or plasma protein ruth ann urement (mass/volume)on 02-01-2022 Protein [Mass/Vol] 6.1 g/dL Low 6.2-8.0 [facility] [employer] Work Phone: Serum or plasma sodium measu rement (moles/volume)on 02-01-2022 Sodium [Moles/Vol] 133 mmol/L Low 135-145 [facility] [employer] Work Phone: Serum or plasma total biliru bin measurement (mass/volume)on 02-01-2022 Bilirubin [Mass/Vol] 0.7 mg/dL 0.2-1.0 [facility] Work Phone: [phone] Serum or plasma urea nitroge n measurement (mass/volume)on 02-01-2022 Urea nitrogen [Mass/Vol] 3 mg/dL Low 7-20 [facility] Work Phone: [phone] WBC Auto (Bld) [#/Vol]on WBC (Bld) [#/Vol] 10.9 th/cmm High 4.4-10.5 [facility] Work Phone: [phone] * Urine urinalysis yeast owen iants panel by computer assisted methodon 01-31-2022 Urinalysis yeast variants panel Computer assisted (U) Present High [facility] Work Phone: [phone] Automated bacteria count in urine sediment (number/area)on 01-31-2022 Bacteria Auto (Urine sed) [#/Area] Trace [facility] Work Phone: [phone] Automated blood hypochromia detectionon 01-31-2022 Hypochromia Auto Ql (Bld) 1+ [facility] Work Phone: [phone] Automated erythrocytes count in urine sediment (number/area)on 01-31-2022 RBC Auto (Urine sed) [#/Area] 0-2 /HPF [facility] Work Phone: [phone] Automated leukocytes count i n urine sediment (number/area)on 01-31-2022 WBC Auto (Urine sed) [#/Area] 0-5 /HPF [facility] Work Phone: [phone] Automated squamous epithelia l cells count in urine sediment (number/area)on 01-31-2022 Epithelial cells.squamous Auto (Urine sed) [#/Area] 11-20 /HPF High [facility] Work Phone: [phone] Basic Metabolic Panel,Fastin javi 01-31-2022 Anion gap [Moles/Vol] 8 mmol/L Normal 4-12 [facility] Comment on above: Performed By: #### L 400.0202, L400.2200, L400.4800 #### Main Laboratory ([facility]) [address] [place] [address] Bjorn Washington MD Calcium [Mass/Vol] 8.50 mg/dL Low 8.8-10.5 [facility] Comment on above: Performed By: #### L 400.0202, L400.2200, L400.4800 #### Main Laboratory ([facility]) [address] [place] [address] Bjorn Washington MD Chloride [Moles/Vol] 105 mmol/L Normal 101-111 [facility] Comment on above: Performed By: #### L 400.0202, L400.2200, L400.4800 #### Main Laboratory ([facility]) [address] [place] [address] Bjorn Washington MD CO2 [Moles/Vol] 19 mmol/L Low 21-32 [facility] Comment on above: Performed By: #### L 400.0202, L400.2200, L400.4800 #### Main Laboratory ([facility]) [address] [place] [address] Bjorn Washington MD Creatinine [Mass/Vol] 0.62 mg/dL Normal 0.60-1.30 [facility] Comment on above: Performed By: #### L 400.0202, L400.2200, L400.4800 #### Main Laboratory ([facility]) [address] [place] [address] Bjorn Washington MD GFR Calculation > [address] [facility] Comment on above: Result Comment: [employer]au Kidney Disease stages by NKDF Stage eGFR I >90 II 60-89 III 30-59 IV 15-29 V <15 or dialysis AGE(years) AVERAGE GFR 20-29 116 ml/min/1.73 square meters Note:This result is normalized to 1.73 square meter body surface area. Height and weight are not factored. Performed By: #### L 400.0202, L400.2200, L400.4800 #### Main Laboratory ([facility]) [address] [place] [address] Bjorn Washington MD Glucose [Mass/Vol] 216 mg/dL High 70-110 [facility] Comment on above: Performed By: #### L 400.0202, L400.2200, L400.4800 #### Main Laboratory ([facility]) [address] [place], [facility] Bjorn Washington MD Potassium [Moles/Vol] 3.4 mmol/L Low 3.6-5.0 [facility] Comment on above: Performed By: #### L 400.0202, L400.2200, L400.4800 #### Main Laboratory ([facility]) [address] [place] [address] Bjorn Washington MD Sodium [Moles/Vol] 132 mmol/L Low 135-145 [facility] Comment on above: Performed By: #### L 400.0202, L400.2200, L400.4800 #### Main Laboratory ([facility]) [address] [place] [address] Bjorn Washington MD Urea nitrogen [Mass/Vol] 7 mg/dL Normal 7-20 [facility] Comment on above: Performed By: #### L 400.0202, L400.2200, L400.4800 #### Main Laboratory ([facility]) [address] [place] [address] Bjorn Washington MD Anion gap [Moles/Vol] 8 mmol/L Normal 4-12 [facility] Comment on above: Performed By: #### L 702.1000 #### Main Laboratory ([facility]) [address] [place] [address] Bjorn Washington MD Calcium [Mass/Vol] 8.40 mg/dL Low 8.8-10.5 [facility] Comment on above: Performed By: #### L 702.1000 #### Main Laboratory ([facility]) [address] [place] [address] Bjorn Washington MD Chloride [Moles/Vol] 108 mmol/L Normal 101-111 [facility] Comment on above: Performed By: #### L 702.1000 #### Main Laboratory ([facility]) [address] [place] [address] Bjorn Washington MD CO2 [Moles/Vol] 19 mmol/L Low 21-32 [facility] Comment on above: Result Comment: Delt a: 12 on 01/31/22 Performed By: #### L 702.1000 #### Main Laboratory ([facility]) [address] [place] [address] Bjorn Washington MD Creatinine [Mass/Vol] 0.66 mg/dL Normal 0.60-1.30 [facility] Comment on above: Performed By: #### L 702.1000 #### Main Laboratory ([facility]) [address] [place] [address] Bjorn Washington MD GFR Calculation > [address] [facility] Comment on above: Result Comment: [employer] Kidney Disease stages by NKDF Stage eGFR I >90 II 60-89 III 30-59 IV 15-29 V <15 or dialysis AGE(years) AVERAGE GFR 20-29 116 ml/min/1.73 square meters Note:This result is normalized to 1.73 square meter body surface area. Height and weight are not factored. Performed By: #### L 702.1000 #### Main Laboratory ([facility]) [address] [place] [address] Bjorn Washington MD Glucose [Mass/Vol] 179 mg/dL High 70-110 [facility] Comment on above: Performed By: #### L 702.1000 #### Main Laboratory ([facility]) [address] [place] [address] Bjorn Washington MD Potassium [Moles/Vol] 3.6 mmol/L Normal 3.6-5.0 [facility] Comment on above: Performed By: #### L 702.1000 #### Main Laboratory ([facility]) [address] [place] [address] Bjorn Washington MD Sodium [Moles/Vol] 135 mmol/L Normal 135-145 [facility] Comment on above: Performed By: #### L 702.1000 #### Main Laboratory ([facility]) [address] [place], [facility] Bjorn Washington MD Urea nitrogen [Mass/Vol] 8 mg/dL Normal 7-20 [facility] Comment on above: Performed By: #### L 702.1000 #### Main Laboratory ([facility]) [address] [place], [facility] Bjorn Washington MD Anion gap [Moles/Vol] 13 mmol/L High 4-12 [facility] Comment on above: Performed By: #### L 400.0202, L400.2200, L400.4800 #### Main Laboratory ([facility]) [address] [place], [facility] Bjorn Washington MD Calcium [Mass/Vol] 8.10 mg/dL Low 8.8-10.5 [facility] Comment on above: Performed By: #### L 400.0202, L400.2200, L400.4800 #### Main Laboratory ([facility]) [address] [place], [facility] jBorn Washington MD Chloride [Moles/Vol] 112 mmol/L High 101-111 [facility] Comment on above: Performed By: #### L 400.0202, L400.2200, L400.4800 #### Main Laboratory ([facility]) [address] [place] [address] Bjorn Washington MD CO2 [Moles/Vol] 12 mmol/L Low 21-32 [facility] Comment on above: Performed By: #### L 400.0202, L400.2200, L400.480 #### Main Laboratory ([facility]) [address] [place] [address] Bjorn Washington MD Creatinine [Mass/Vol] 0.76 mg/dL Normal 0.60-1.30 [facility] Comment on above: Performed By: #### L 400.0202, L400.2200, L400.4800 #### Main Laboratory ([facility]) [address] [place] [address] Bjorn Washington MD GFR Calculation > [address] [facility] Comment on above: Result Comment: [employer] Kidney Disease stages by NKDF Stage eGFR I >90 II 60-89 III 30-59 IV 15-29 V <15 or dialysis AGE(years) AVERAGE GFR 20-29 116 ml/min/1.73 square meters Note:This result is normalized to 1.73 square meter body surface area. Height and weight are not factored. Performed By: #### L 400.0202, L400.2199, L400.480 #### Main Laboratory ([facility]) [address] [place] [address] Bjorn Washington MD Glucose [Mass/Vol] 175 mg/dL High 70-110 [facility] Comment on above: Performed By: #### L 400.0202, L400.2200, L400.4800 #### Main Laboratory ([facility]) [address] [place] [address] Bjorn Washington MD Potassium [Moles/Vol] 4.5 mmol/L Normal 3.6-5.0 [facility] Comment on above: Performed By: #### L 400.0202, L400.2200, L400.4800 #### Main Laboratory ([facility]) [address] [place] [address] Bjorn Washington MD Sodium [Moles/Vol] 137 mmol/L Normal 135-145 [facility] Comment on above: Performed By: #### L 400.0202, L400.2200, L400.4800 #### Main Laboratory ([facility]) [address] [place] [address] Bjorn Washington MD Urea nitrogen [Mass/Vol] 11 mg/dL Normal 7-20 [facility] Comment on above: Performed By: #### L 400.0202, L400.2200, L400.4800 #### Main Laboratory ([facility]) [address] [place] [address] Bjorn Washington MD Anion gap [Moles/Vol] 17 mmol/L High 4-12 [facility] Comment on above: Performed By: #### L 702.1000 #### Main Laboratory ([facility]) [address] [place] [address] Bjorn Washington MD Calcium [Mass/Vol] 8.40 mg/dL Low 8.8-10.5 [facility] Comment on above: Performed By: #### L 702.1000 #### Main Laboratory ([facility]) [address] [place] [address] Bjorn Washington MD Chloride [Moles/Vol] 111 mmol/L Normal 101-111 [facility] Comment on above: Performed By: #### L 702.1000 #### Main Laboratory ([facility]) [address] [place] [address] Bjorn Washington MD CO2 [Moles/Vol] 10 mmol/L Low 21-32 [facility] Comment on above: Performed By: #### L 702.1000 #### Main Laboratory ([facility]) [address] [place] [address] Bjorn Washington MD Creatinine [Mass/Vol] 0.83 mg/dL Normal 0.60-1.30 [facility] Comment on above: Performed By: #### L 702.1000 #### Main Laboratory ([facility]) [address] [place] [address] Bjorn Washington MD GFR Calculation > [address] [facility] Comment on above: Result Comment: [employer] Kidney Disease stages by NKDF Stage eGFR I >90 II 60-89 III 30-59 IV 15-29 V <15 or dialysis AGE(years) AVERAGE GFR 20-29 116 ml/min/1.73 square meters Note:This result is normalized to 1.73 square meter body surface area. Height and weight are not factored. Performed By: #### L 702.1000 #### Main Laboratory ([facility]) [address] [place] [address] Bjorn Washington MD Glucose [Mass/Vol] 212 mg/dL High 70-110 [facility] Comment on above: Performed By: #### L 702.1000 #### Main Laboratory ([facility]) [address] [place] [place] [address] Bjorn Washington MD Potassium [Moles/Vol] 4.2 mmol/L Normal 3.6-5.0 [facility] Comment on above: Performed By: #### L 702.1000 #### Main Laboratory ([facility]) [address] [place] [address] Bjorn Washington MD Sodium [Moles/Vol] 138 mmol/L Normal 135-145 [facility] Comment on above: Performed By: #### L 702.1000 #### Main Laboratory ([facility]) [address] [place] [address] Bjorn Washington MD Urea nitrogen [Mass/Vol] 12 mg/dL Normal 7-20 [facility] Comment on above: Performed By: #### L 702.1000 #### Main Laboratory ([facility]) [address] [place] [address] Bjorn Washington MD Bilirubin Auto test strip Ql (U)on 01-31-2022 Bilirubin Ql (U) Negative Negative [facility] Work Phone: Blood hemoglobin A1/total he moglobinon 01-31-2022 Hemoglobin A1 (Bld) [Mass fraction] 9.8 % High [facility] Work Phone: Comment on above: Hemoglobin A1c value s greater than or equal to 6.5 percentare diagnostic for diabetes mellitus. Diagnosis should beconfirmed by repeat testing. In diabetic patients, [id number] should be discussed with healthcare provider.Test Performed by:[address] [id number] Director: [place] M.D. Ph.D.; CLIA# [id number] CBC with Differentialon 01-06 Abs Baso Count 100 /cmm Normal 0-200 [facility] Comment on above: Performed By: #### L 702.1000 #### Main Laboratory ([facility]) [address] [place] [address] Bjorn Washington MD Abs Eos Count 0 /cmm Normal 0-500 [facility] Comment on above: Performed By: #### L 702.1000 #### Main Laboratory ([facility]) [address] [place] [address] Bjorn Washington MD Abs Lymph Count 1600 /cmm Normal 0662-5286 [facility] Comment on above: Performed By: #### L 702.1000 #### Main Laboratory ([facility]) [address] [place] [address] Bjorn Washington MD Abs Schleicher Count 1600 /cmm High 0-800 [facility] Comment on above: Performed By: #### L 702.1000 #### Main Laboratory ([facility]) [address] [place] [address] Bjorn Washington MD Abs Neut Count 42221 /cmm High 8878-3864 [facility] Comment on above: Performed By: #### L 702.1000 #### Main Laboratory ([facility]) [address] [place], [place] [address] Bjorn Washington MD Basophils/100 WBC (Bld) 0.4 % Normal 0-2 L [facility] Comment on above: Performed By: #### L 702.1000 #### Main Laboratory ([facility]) [address] [place], [place] [address] Bjorn Washington MD EOS-Auto Diff 0.1 % Normal 0-6 [facility] Comment on above: Performed By: #### L 702.1000 #### Main Laboratory ([facility]) [facility] [address] [place], [place] [address] Bjorn Washington MD Erythrocyte distribution width (RBC) [Ratio] 14.6 % Normal 12.0-16.0 [facility] Comment on above: Performed By: #### L 702.1000 #### Main Laboratory ([facility]) [address] [place], [place] [address] Bjorn Washington MD Hematocrit (Bld) [Volume fraction] 43.8 % Normal 35.0-44.0 [facility] Comment on above: Performed By: #### L 702.1000 #### Main Laboratory ([facility]) [address] [place], [place] [address] Bjorn Washington MD Hemoglobin (Bld) [Mass/Vol] 14.8 g/dL Normal 12.0-15.0 [facility] Comment on above: Performed By: #### L 702.1000 #### Main Laboratory ([facility]) [address] [place], [place] [address] Bjorn Washington MD Hypochromasia 1+ Normal [facility] Comment on above: Performed By: #### L 702.1000 #### Main Laboratory ([facility]) [address] [place], [place] [address] Bjorn Washington MD Lymphocytes/100 WBC (Bld) 6.1 % Low 15-45 [facility] Comment on above: Performed By: #### L 702.1000 #### Main Laboratory ([facility]) [address] [place], [place] [address] Bjorn Washington MD MCH (RBC) [Entitic mass] 26.7 pg Low 27.5-33.0 [facility] Comment on above: Performed By: #### L 702.1000 #### Main Laboratory ([facility]) [address] [place], [place] [address] Bjorn Washington MD MCHC (RBC) [Mass/Vol] 33.9 g/dL Normal 33.0-36.0 [facility] Comment on above: Performed By: #### L 702.1000 #### Main Laboratory ([facility]) [address] [place], [place] [address] Bjorn Washington MD MCV 79.0 CU ANDREW Low 80-97 [facility] Comment on above: Performed By: #### L 702.1000 #### Main Laboratory ([facility]) [address] [place], [place] [address] Bjorn Washington MD Schleicher- Auto Diff 6.1 % Normal 2-10 [facility] Comment on above: Performed By: #### L 702.1000 #### Main Laboratory ([facility]) [address] [place], [facility] Bjorn Washington MD Neut-Auto Diff 87.3 % High 40-70 [facility] Comment on above: Performed By: #### L 702.1000 #### Main Laboratory ([facility]) [address] [place], [facility] Bjorn Washington MD NRBC-Auto 0.0 /100 WBC Normal <1 [facility] Comment on above: Performed By: #### L 702.1000 #### Main Laboratory ([facility]) [address] [place] [place] [address] Bjorn Washington MD Platelet Count 309 th/cmm Normal 150-400 [facility] Comment on above: Performed By: #### L 702.1000 #### Main Laboratory ([facility]) [address] [place] [place] [address] Bjorn Washington MD RBC 5.55 mil/cmm High 4.00-5.10 [facility] Comment on above: Performed By: #### L 702.1000 #### Main Laboratory ([facility]) [address] [place] [place] [address] Bjorn Washington MD WBC 25.6 th/cmm High 4.4-10.5 [facility] Comment on above: Performed By: #### L 702.1000 #### Main Laboratory ([facility]) [address] [place] [address] Sinuses With Contraston 1 04-03-2021 CT Sinuses With Contrast [facility] Radiology Department Patient: SAVI NGUYEN [address] : 2000 Sex: [place] [address] Location: [place] [address] Unit #: [id number] Ordering Phys: Good Calderon MD Exam Date: [...] by: Shane KNAPP,David Turpin on 01/31/221856 Normal [facility] Complete urinalysis with ref torito to cultureon 01-31-2022 Urinalysis complete W Reflex Culture panel (U) No [facility] Work Phone: Comment on above: Culture not done per lab protocol Consultation - ENTon 022 Consultation - ENT [facility] Medical Records Patient: SAVI NGUYEN [address] : [address] [place], [place] [address] Location: [facility] [phone] Unit #: [id number] Consultation - ENT Good Calderon MD Service Date: 01/31/22 History of Present Illness History of Present Illness: SAVI NGUYEN is a 21 yr old F [...] < > Report Signed by: on Normal [facility] HCO3 (BldV) [Moles/Vol]on HCO3 (Bld) [Moles/Vol] 10.4 mmol/L Low 23.0-28.0 L [facility] Work Phone: Hemoglobin A1Con 01-31-2022 Hgb A1C Normal 4.4-6.4 [facility] Comment on above: Result Comment: Vari ant detected - Specimen sent to [facility] for A1c testing. Performed By: #### L 400.0206, L400.1320, L400.3471 #### Main Laboratory ([facility]) [address] [place] [address] Bjorn Washington MD Hemoglobin [Mass/volume] in Urine by Automated test stripon 01-31-2022 Hemoglobin Auto test strip (U) [Mass/Vol] Negative Negative [facility] Work Phone: Ionized Calciumon 01-31-2022 Ionized Calcium 1.20 mmol/L Normal 1.15-1.29 [facility] Comment on above: Performed By: #### L 702.1000 #### Main Laboratory ([facility]) [address] [place] [address] Bjorn Washington MD Ketones Auto test strip (U) [Mass/Vol]on 01-31-2022 Ketones (U) [Mass/Vol] 10 mg/dL High Negative [facility] Work Phone: Magnesiumon 01-31-2022 Magnesium [Mass/Vol] 1.8 mg/dL Normal 1.8-2.5 [facility] Comment on above: Performed By: #### L 702.1000 #### Main Laboratory ([facility]) [address] [place] [address] Bjorn Washington MD Meter Glucoseon 01-31-2022 Glucose [Mass/Vol] 173 mg/dL High 70-110 [facility] Comment on above: Performed By: #### L 702.1000 #### Main Laboratory ([facility]) [address] [place] [address] Bjorn Washington MD Glucose [Mass/Vol] 146 mg/dL High 70-110 [facility] Comment on above: Performed By: #### L 400.0202, L400.2200, L400.4800 #### Main Laboratory ([facility]) [address] [place] [address] Bjorn Washington MD Glucose [Mass/Vol] 136 mg/dL High 70-110 [facility] Comment on above: Performed By: #### L 400.0202, L400.2200, L400.4800 #### Main Laboratory ([facility]) [address] [place] [address] Bjorn Washington MD Glucose [Mass/Vol] 163 mg/dL High 70-110 [facility] Comment on above: Performed By: #### L 702.1000 #### Main Laboratory ([facility]) [address] [place] [address] Bjorn Washington MD Glucose [Mass/Vol] 188 mg/dL High 70-110 [facility] Comment on above: Performed By: #### L 702.1000 #### Main Laboratory ([facility]) [address] [place] [address] Bjorn Washington MD Glucose [Mass/Vol] 170 mg/dL High 70-110 [facility] Comment on above: Performed By: #### L 702.1000 #### Main Laboratory ([facility]) [address] [place] [address] Bjorn Washington MD Glucose [Mass/Vol] 165 mg/dL High 70-110 [facility] Comment on above: Performed By: #### L 702.1000 #### Main Laboratory ([facility]) [address] [place] [address] Bjorn Washington MD Glucose [Mass/Vol] 164 mg/dL High 70-110 [facility] Comment on above: Performed By: #### L 702.1000 #### Main Laboratory ([facility]) [address] [place] [address] Bjorn Washington MD Glucose [Mass/Vol] 196 mg/dL High 70-110 [facility] Comment on above: Performed By: #### L 400.0202, L400.2200, L400.4800 #### Main Laboratory ([facility]) [address] [place] [address] Bjorn Washington MD Glucose [Mass/Vol] 185 mg/dL High 70-110 [facility] Comment on above: Performed By: #### L 400.0202, L400.2200, L400.4800 #### Main Laboratory ([facility]) [address] [place] [address] Bjorn Washington MD Glucose [Mass/Vol] 195 mg/dL High 70-110 [facility] Comment on above: Performed By: #### L 702.1000 #### Main Laboratory ([facility]) [address] [place] [place] [address] Bjorn Washington MD Glucose [Mass/Vol] 191 mg/dL High 70-110 [facility] Comment on above: Performed By: #### L 702.1000 #### Main Laboratory ([facility]) [address] [place] [address] Bjorn Washington MD Glucose [Mass/Vol] 228 mg/dL High 70-110 [facility] Comment on above: Performed By: #### L 702.1000 #### Main Laboratory ([facility]) [address] [place] [address] Bjorn Washington MD No Panel Informationon 01-31 Blood Gas Notified By Yes [facility] Work Phone: Blood Gas Patient Equipment Room Air [facility] Work Phone: Venous Blood pH 7.22 Low 7.31-7.41 [facility] Work Phone: Hemoglobin A1c See comment 4.4-6.4 [facility] Work Phone: Comment on above: Variant detected - S pecimen sent to [facility] for A1c testing. Ionized Calcium 1.20 mmol/L 1.15-1.29 [facility] Work Phone: Osmolality of Serum or Plasm aon 01-31-2022 Osmolality [Osmolality] 299 mOsm 270-300 L [facility] Work Phone: Osmolality, Serumon 02-01-20 22 Osmolality, Serum 299 mOsm Normal 270-300 [facility] Comment on above: Performed By: #### L 400.0202, L400.2200, L400.4800 #### Main Laboratory ([facility]) [address] [place] [place] [address] Bjorn Washington MD Osmolality, Serum 297 mOsm Normal 270-300 [facility] Comment on above: Performed By: #### L 702.1000 #### Main Laboratory ([facility]) [address] [place] [address] Bjorn Washington MD Osmolality, Serum 298 mOsm Normal 270-300 [facility] Comment on above: Performed By: #### L 400.0202, L400.2200, L400.4800 #### Main Laboratory ([facility]) [address] [place], [place] [address] Bjorn Washington MD Osmolality, Serum 309 mOsm High 270-300 [facility] Comment on above: Performed By: #### L 702.1000 #### Main Laboratory ([facility]) [address] [place], [place] [address] Bjorn Washington MD Other useful informationon 1 04-03-2021 Other useful information Vein [facility] Work Phone: Phosphoruson 01-31-2022 Phosphate [Mass/Vol] 1.3 mg/dL Low 2.4-4.7 [facility] Comment on above: Performed By: #### L 400.0202, L400.2200, L400.4800 #### Main Laboratory ([facility]) [address] [place], [place] [address] Bjorn Washington MD Phosphate [Mass/Vol] 1.5 mg/dL Low 2.4-4.7 [facility] Comment on above: Result Comment: Delt a: 2.1 on 01/31/22 Performed By: #### L 702.1000 #### Main Laboratory ([facility]) [address] [place] [address] Bjorn Washington MD Phosphate [Mass/Vol] 2.1 mg/dL Low 2.4-4.7 [facility] Comment on above: Performed By: #### L 400.0202, L400.2200, L400.4800 #### Main Laboratory ([facility]) [address] [place] [address] Bjorn Washington MD Phosphate [Mass/Vol] 2.3 mg/dL Low 2.4-4.7 [facility] Comment on above: Performed By: #### L 702.1000 #### Main Laboratory ([facility]) [address] [place] [address] Bjorn Washington MD Protein Auto test strip (U) [Mass/Vol]on 01-31-2022 Protein (U) [Mass/Vol] 10 mg/dL Negative [facility] Work Phone: Serum or plasma fasting gluc ose measurement (mass/volume)on 01-31-2022 Glucose post fast [Mass/Vol] 216 mg/dL High 70-110 [facility] Work Phone: Specific gravity Auto test s trip (U) [Rel density]on 01-31-2022 Specific gravity (U) [Rel density] >=1.030 1.000-1.035 [facility] Work Phone: Urinalysis w Micro Rflx Cult on 01-31-[address] [facility] Comment on above: Order Comment: Urine Source Urine, Clean Catch Performed By: #### L 400.0202, L400.2200, L400.4800 #### Main Laboratory ([facility]) [address] [place] [address] Bjorn Washington MD Epi,Squamous 11-[address] [facility] Comment on above: Order Comment: Urine Source Urine, Clean Catch Performed By: #### L 400.0202, L400.2200, L400.4800 #### Main Laboratory ([facility]) [address] [place] [address] Bjorn Washington MD Mucous Present Normal [facility] Comment on above: Order Comment: Urine Source Urine, Clean Catch Performed By: #### L 400.0202, L400.2200, L400.4800 #### Main Laboratory ([facility]) [address] [place], [place] [address] Bjorn Washington MD RBC 0-[address] [facility] Comment on above: Order Comment: Urine Source Urine, Clean Catch Performed By: #### L 400.0202, L400.2200, L400.4800 #### Main Laboratory ([facility]) [address] [place], [place] [address] Bjorn Washington MD UA Reflex Culture No Normal [facility] Comment on above: Order Comment: Urine Source Urine, Clean Catch Result Comment: Cult ure not done per lab protocol Performed By: #### L 400.0202, L400.2200, L400.4800 #### Main Laboratory ([facility]) [address] [place] [address] Bjorn Washington MD WBC 0-[address] [facility] Comment on above: Order Comment: Urine Source Urine, Clean Catch Performed By: #### L 400.0202, L400.2200, L400.4800 #### Main Laboratory ([facility]) [address] [place], [place] [address] Bjorn Washington MD Yeast Present High [facility] Comment on above: Order Comment: Urine Source Urine, Clean Catch Performed By: #### L 400.0202, L400.2200, L400.4800 #### Main Laboratory ([facility]) [address] [place], [place] [address] Bjorn Washington MD Appearance (U) Clear Normal [facility] Comment on above: Order Comment: Urine Source Urine, Clean Catch Performed By: #### L 400.0202, L400.2200, L400.4800 #### Main Laboratory ([facility]) [address] [place], [place] [address] Bjorn Washington MD Bilirubin Ql (U) Negative Normal Negative [facility] Comment on above: Order Comment: Urine Source Urine, Clean Catch Performed By: #### L 400.0202, L400.2200, L400.4800 #### Main Laboratory ([facility]) [address] [place] [address] Bjorn Washington MD Color (U) Yellow Normal [facility] Comment on above: Order Comment: Urine Source Urine, Clean Catch Performed By: #### L 400.0202, L400.2200, L400.4800 #### Main Laboratory ([facility]) [address] [place] [address] Bjorn Washington MD Glucose Ql (U) Negative Normal Negative [facility] Comment on above: Order Comment: Urine Source Urine, Clean Catch Performed By: #### L 400.0202, L400.2200, L400.4800 #### Main Laboratory ([facility]) [address] [place] [address] Bjorn Washington MD Ketones Ql (U) 10 mg/dL High Negative [facility] Comment on above: Order Comment: Urine Source Urine, Clean Catch Performed By: #### L 400.0202, L400.2200, L400.4800 #### Main Laboratory ([facility]) [address] [place] [address] Bjorn Washington MD Leukocytes Negative Normal Negative [facility] Comment on above: Order Comment: Urine Source Urine, Clean Catch Performed By: #### L 400.0202, L400.2200, L400.4800 #### Main Laboratory ([facility]) [address] [place] [address] Bjorn Washington MD Nitrite Ql (U) Negative Normal Negative [facility] Comment on above: Order Comment: Urine Source Urine, Clean Catch Performed By: #### L 400.0202, L400.2200, L400.4800 #### Main Laboratory ([facility]) [address] [place] [address] Bjorn Washington MD pH (U) 6.0 [pH] Normal 5.0-8.0 [facility] Comment on above: Order Comment: Urine Source Urine, Clean Catch Performed By: #### L 400.0202, L400.2200, L400.4800 #### Main Laboratory ([facility]) [address] [place] [address] Bjorn Washington MD Protein Ql (U) 10 mg/dL Normal Negative [facility] Comment on above: Order Comment: Urine Source Urine, Clean Catch Performed By: #### L 400.0202, L400.2200, L400.4800 #### Main Laboratory ([facility]) [address] [place] [address] Bjorn Washington MD Specific gravity (U) [Rel density] >=1.030 Normal 1.000-1.035 [facility] Comment on above: Order Comment: Urine Source Urine, Clean Catch Performed By: #### L 400.0202, L400.2200, L400.4800 #### Main Laboratory ([facility]) [address] [place] [address] Bjorn Washington MD Urobilinogen Normal Normal 0.2-1.0 [facility] Comment on above: Order Comment: Urine Source Urine, Clean Catch Performed By: #### L 400.0202, L400.2200, L400.4800 #### Main Laboratory ([facility]) [address] [place] [address] Bjorn Washington MD Urine appearance determinati onon 01-31-2022 Appearance (U) Clear [facility] Work Phone: Urine color determinationon 01-31-2022 Color (U) Yellow [facility] Work Phone: Urine glucose measurement by automated test strip (mass/volume)on 01-31-2022 Glucose Auto test strip (U) [Mass/Vol] Negative Negative [facility] Work Phone: Urine leukocytes count by au tomated test strip (number/volume)on 01-31-2022 WBC Auto test strip (U) [#/Vol] Negative Negative [facility] Work Phone: Urine mucus detection by aut omated methodon 01-31-2022 Mucus Auto Ql (U) Present [facility] Work Phone: Urine nitrite detection by a utomated test stripon 01-31-2022 Nitrite Auto test strip Ql (U) Negative Negative [facility] Work Phone: Urobilinogen Auto test strip (U) [Mass/Vol]on 01-31-2022 Urobilinogen (U) [Mass/Vol] Normal 0.2-1.0 [facility] Work Phone: Venous Blood Gaseson 022 ABG Device Room Air Normal [facility] Comment on above: Performed By: #### L 702.1000 #### Main Laboratory ([facility]) [address] [place], [place] [address] Bjorn Washington MD ABG Draw Site Vein Normal [facility] Comment on above: Performed By: #### L 702.1000 #### Main Laboratory ([facility]) [address] [place], [place] [address] Bjorn Washington MD HCO3 (Bld) [Moles/Vol] 10.4 mmol/L Low 23.0-28.0 L [facility] Comment on above: Performed By: #### L 702.1000 #### Main Laboratory ([facility]) [address] [place], [place] [address] Bjorn Washington MD Oxygen saturation in Blood 91 % Low 95-98 [facility] Comment on above: Performed By: #### L 702.1000 #### Main Laboratory ([facility]) [address] [place], [place] [address] Bjorn Washington MD Unit Notified? Yes Normal [facility] Comment on above: Performed By: #### L 702.1000 #### Main Laboratory ([facility]) [address] [place] [address] Bjorn Washington MD Venous Base Excess -17 mmol/L Low -2-3 [facility] Comment on above: Performed By: #### L 702.1000 #### Main Laboratory ([facility]) [address] [place] [address] Bjorn Washington MD Venous FiO2 21.[address] [facility] Comment on above: Performed By: #### L 702.1000 #### Main Laboratory ([facility]) [address] [place] [address] Bjorn Washington MD Venous pCO2 25 mmHg Low 41-51 [facility] Comment on above: Performed By: #### L 702.1000 #### Main Laboratory ([facility]) [address] [place] [address] Bjorn Washington MD Venous pH 7.22 Low 7.31-7.41 [facility] Comment on above: Performed By: #### L 702.1000 #### Main Laboratory ([facility]) [address] [place] [address] Bjorn Washington MD Venous pO2 70 mmHg Low 80-105 [facility] Comment on above: Performed By: #### L 702.1000 #### Main Laboratory ([facility]) [address] [place] [place] [address] Bjorn Washington MD Venous blood Amanda indexo n 01-31-2022 Amanda index (BldV+Inhl gas) [Ratio] 21.00 [facility] Work Phone: Venous blood base excess by calculationon 01-31-2022 Base excess Calc (BldV) [Moles/Vol] -17 mmol/L Low -2-3 [facility] Work Phone: Venous blood oxygen saturati on (mass fraction)on 01-31-2022 Oxygen saturation in Venous blood 91 % Low 95-98 [facility] Work Phone: Venous blood partial pressur e of carbon dioxide measurement adjusted to patients actuon 01-31-2022 CO2 adjusted to patient's actual temperature (BldV) [Partial pressure] 25 mmHg Low 41-51 [facility] Work Phone: Venous blood partial pressur e of oxygen measurement with patient temperature corrrecton 01-31-2022 Oxygen adjusted to patient's actual temperature (BldV) [Partial pressure] 70 mmHg Low 80-105 [facility] Work Phone: pH Auto test strip (U)on pH (U) 6.0 [pH] 5.0-8.0 [facility] Work Phone: PAP ACOG PANEL 2: 21 to 29on 06-27-2021 . . [facility] Comment on above: Performed By: #### [id number] #### [facility] [address] [place] [address] Dr. Ute Adame Age Gdln ACOG Testing - [facility] Comment on above: Performed By: #### [id number] #### [facility] [address] [place] [address] Dr. Ute Adame DIAGNOSIS: Comment [facility] Comment on above: Result Comment: NEGA TIVE FOR INTRAEPITHELIAL LESION OR MALIGNANCY. CELLULAR CHANGES ASSOCIATED WITH INFLAMMATION ARE PRESENT. Performed By: #### [id number] #### [facility] [address] [place] [address] Dr. Ute Adame Methodology: Comment [facility] Comment on above: Result Comment: This liquid based ThinPrep(R) pap test was screened with the use of an image guided system. Performed By: #### [id number] #### [facility] [address] [place] [address] Dr. Ute Adame Note: Comment [facility] Comment on above: Result Comment: The Pap smear is a screening test designed to aid in the detection of premalignant and malignant conditions of the uterine cervix. It is not a diagnostic procedure and should not be used as the sole means of detecting cervical cancer. Both false-positive and false-negative reports do occur. . Performed By: #### [id number] #### [facility] [address] [place] [address] Dr. Ute Adame Performed by: Comment Normal [facility] Comment on above: Result Comment: Danielle Alcaraz, [employer]olded Goods Controls Operator (ASCP) Performed By: #### [id number] #### [facility] [address] [place] [address] Dr. Ute Adame Reflex Criteria: Comment Normal [facility] Comment on above: Result Comment: The HPV DNA reflex criteria were not met with this specimen result therefore, no HPV testing was performed. . Performed By: #### [id number] #### [facility] [address] [place] [address] Dr. Ute Adame Specimen adequacy: Comment Normal [facility] Comment on above: Result Comment: Sati sfactory for evaluation. Endocervical and/or squamous metaplastic cells (endocervical component) are present. Performed By: #### [id number] #### [facility] [address] [place] [address] Dr. Ute Adame Vital Signs Date Time Vital Sign Value Performing Clinician Facility 03-20-2023 12:42-0500 Body height 163 cm Feli MULLINS Work Phone: [facility] 03-20-2023 12:42-0500 Body mass index (BMI) [Ratio] 33.84 kg/m2 Feli Nguyen APRN-MOLDING TECHNICIAN Work Phone: [facility] 03-20-2023 12:42-0500 Body weight 89.9 kg Feli Nguyen APRN-MOLDING TECHNICIAN Work Phone: [facility] 03-20-2023 12:42-0500 Diastolic blood pressure 76 mm[Hg] Feli Nguyen APRN-MOLDING TECHNICIAN Work Phone: [facility] 03-20-2023 12:42-0500 Heart rate 87 /min Feli Nguyen APRN-MOLDING TECHNICIAN Work Phone: [facility] 03-20-2023 12:42-0500 Systolic blood pressure 122 mm[Hg] Feli Nguyen AMMUNITION OFFICER-MOLDING TECHNICIAN Work Phone: [facility] 03-19-2023 13:37-0500 Body mass index (BMI) [Ratio] 33.81 kg/m2 Sandra Bhatia PA Work Phone: [facility] 03-19-2023 13:37-0500 Body weight 89.36 kg Sandra Bhatia PA Work Phone: [facility] 03-19-2023 13:37-0500 Diastolic blood pressure 74 mm[Hg] Sandra Bhatia PA Work Phone: [facility] 03-19-2023 13:37-0500 Systolic blood pressure 122 mm[Hg] Sandra Bhatia PA Work Phone: [facility] 02-26-2023 11:16-0500 Body mass index (BMI) [Ratio] 34.31 kg/m2 Chs Risk [facility] 02-26-2023 11:16-0500 Body temperature 98.2 [degF] Chs Risk [facility] 02-26-2023 11:16-0500 Body weight 90.67 kg Chs Risk [facility] 02-26-2023 11:16-0500 Diastolic blood pressure 64 mm[Hg] Chs Risk [facility] 02-26-2023 11:16-0500 Systolic blood pressure 110 mm[Hg] Chs Risk [facility] 02-01-2022 19:27-0500 Body temperature 98 [degF] Physician None Work Phone: [facility] Work Phone: 02-01-2022 19:27-0500 Diastolic blood pressure 77 mm[Hg] Physician None Work Phone: [facility] Work Phone: 02-01-2022 19:27-0500 Heart rate 75 /min Physician None Work Phone: [facility] Work Phone: 02-01-2022 19:27-0500 Respiratory rate 19 /min Physician None Work Phone: [facility] Work Phone: 02-01-2022 19:27-0500 SaO2% (BldA) [Mass fraction] 99 % Physician None Work Phone: [facility] Work Phone: 02-01-2022 19:27-0500 Systolic blood pressure 133 mm[Hg] Physician None Work Phone: [facility] Work Phone: 02-01-2022 00:16-0500 Body weight 83.2 kg Physician None Work Phone: [facility] Work Phone: 01-31-2022 04:13-0500 Body height 162.56 cm Physician None Work Phone: [facility] Work Phone: 01-31-2022 04:13-0500 Body mass index (BMI) [Ratio] 29.7 kg/m2 Physician None Work Phone: [facility] Work Phone: Encounters Encounter Date Encounter Type Care Provider Facility Start: 08-21-2023 End: 08-22-2023 Emergency department patient visit PRIYA BRITT [facility] Start: 08-02-2023 End: 08-02-2023 ambulatory FELI Sherwood [facility] Start: 05-07-2023 Telephone encounter Joan Mosqueda RN [facility] Start: 05-07-2023 End: 05-07-2023 ambulatory JOBST SERVICE [facility] Start: 05-07-2023 End: 05-07-2023 ambulatory Dcc Diab Nurse 4 [facility] - [facility] Start: 04-16-2023 Telephone encounter Joan Mosqueda RN [facility] Start: 04-16-2023 End: 04-16-2023 ambulatory Dcc Diab Nurse 4 [facility] [place] - Diabetes Start: 04-12-2023 End: 04-12-2023 ambulatory Dcc Diab Nurse 4 [facility] - [facility] Comment on above: Type 1 diabetes [place] itus with hyperglycemia ([facility]) Type 1 diabetes [place] itus with hyperglycemia ([facility]) (Primary Dx) Start: 04-12-2023 End: 04-12-2023 ambulatory FELI NGUYEN [facility] Start: 04-05-2023 Telephone encounter Feli Presley Porfirio hernandez AMMUNITION OFFICER-MOLDING TECHNICIAN Work Phone: [facility] Start: 03-20-2023 End: 03-20-2023 Refill Feli Nguyen AMMUNITION OFFICER-MOLDING TECHNICIAN Work Phone: [facility] Start: 03-20-2023 End: 03-20-2023 Office outpatient visit 25 minutes Feli Nguyen AMMUNITION OFFICER-MOLDING TECHNICIAN Work Phone: [facility] Comment on above: Type 1 diabetes [place] itus with hyperglycemia ([facility]) (Primary Dx) Start: 03-19-2023 End: 03-19-2023 ambulatory SANDRA BHATIA Not Available Start: 03-19-2023 End: 03-19-2023 Postop follow up visit related to original px Sandra CALDERÓN Work Phone: [facility] Comment on above: Postop check; 6 weeks follow-up; S/P section Start: 02-26-2023 End: 02-26-2023 ambulatory RO TABARES [facility] Start: 02-26-2023 End: 02-26-2023 care visit [facility] [place] [facility] Comment on above: care and examination (Primary Dx) Start: 02-23-2023 Encounter Community Services Work Phone: [facility] - [facility]E NICU Start: 02-20-2023 End: 02-20-2023 Evaluation and management of inpatient LASHAE Aguilera NOEMI [facility] Start: 02-20-2023 Encounter [facility] Work Phone: [facility] N[facility] Start: 02-16-2023 End: 02-20-2023 Evaluation and management of inpatient YESSY PEDERSEN [facility] Start: 02-04-2023 End: 02-05-2023 Evaluation and management of inpatient RO TABARES [facility] Start: 02-01-2023 End: 02-10-2023 Evaluation and management of inpatient SOPHIE HUDSON [facility] Start: 02-01-2023 End: 02-01-2023 Orders Only Anjali Andino CORE FILER Maternal- Medic ine at [facility] Comment on above: Pre-existing type 1 diabetes mellitus during in third trimester (Primary Dx); History of stillbirth in patient in third trimester, antepartum Start: 01-31-2023 End: 01-31-2023 ambulatory LINDA OLY Not Available Start: 01-23-2023 End: 01-24-2023 ambulatory LINDA R OLY [facility] Start: 01-17-2023 End: 01-17-2023 ambulatory SADNRA JANNETTE Not Available Start: 01-03-2023 End: 01-03-2023 ambulatory LINDA OLY Not Available Start: 12-20-2022 End: 12-20-2022 ambulatory SANDRA JANNETTE Not Available Start: 01-31-2022 End: 02-01-2022 Evaluation and management of inpatient None Facility:[facility] Start: 01-31-2022 End: 02-01-2022 Evaluation and management of inpatient Physician None Work Phone: [facility] Start: 06-21-2021 End: 06-21-[address] TAMI ALVAREZ Facility:H1 Procedures Date Procedure Procedure Detail Performing Clinician Start: 08-02-2023 Follow-up visit Follow-up FELI NGUYEN Start: 03-20-2023 Hemoglobin glycosyla juvenal a1c Feli Nguyen AMMUNITION OFFICER-MOLDING TECHNICIAN Work Phone: Start: 03-20-2023 Adult depression screening assessment Feli Nguyen AMMUNITION OFFICER-MOLDING TECHNICIAN Work Phone: Start: 02-26-2023 care Care FELI NGUYEN Start: 02-26-2023 Adult depression screening assessment Chs Risk Start: 01-30-2023 Adult depression screening assessment Anjali Andino [facility] Start: 09-20-2022 Microscopic observat ion [Identifier] in Cervix by Cyto stain Anjali Andino [facility] Start: 01-31-2022 Blood count hemoglobin Comment on above: Order Comment: Urine Source Urine, Clean Catch Performed By: #### L 400.0202, L400.2200, L400.4800 #### Main Laboratory ([facility]) [address] [place] [address] Bjorn Washington MD Start: 01-31-2022 CT of paranasal sinu ses with contrast Physician None Work Phone: Start: 04-27-2021 Microalbumin [Mass/volume] in Urine by Test strip Anjali Andino [facility] Start: 10-24-2019 End: 06-02-2020 H/O: section Previous delivery, antepartum Anjali Andino [facility] H/O: section S/P sectio n Sandra CALDERÓN Work Phone: Plan of Treatment Date Care Activity Detail Author Start: 02-02-2033 DTaP,Tdap and Td Vaccines (10 - Td or Tdap) DTaP,Tdap and Td Vaccines (10 - Td or Tdap) [facility] Start: 03-25-2030 DTaP,Tdap and Td Vaccines (9 - Td or Tdap) DTaP,Tdap and Td Vaccines (9 - Td or Tdap) [facility] Start: 09-20-2025 Screening for malign ant neoplasm of cervix Pap Smear [facility] Start: 03-26-2024 Tobacco Screening Tobacco Screening [facility] Start: 03-20-2024 Adult BMI Screening Adult BMI Screen ing [facility] Start: 03-20-2024 Depression Screening Depression Scre ening [facility] Start: 03-20-2024 Tobacco Screening Tobacco Screening [facility] Start: 02-27-2024 Adult BMI Screening Adult BMI Screen ing [facility] Start: 02-27-2024 Depression Screening Depression Scre ening [facility] Start: 02-27-2024 Tobacco Screening Tobacco Screening [facility] Start: 02-20-2024 Tobacco Screening Tobacco Screening [facility] Start: 02-17-2024 Adult BMI Screening Adult BMI Screen ing [facility] Start: 02-02-2024 End: 02-02-2024 US MFM with or without consult US MFM with or without consult Imaging Routine Pre-existing type 1 diabetes mellitus during in third trimester History of stillbirth in patient in third trimester, antepartum Expected: 02/02/2024 (Approximate), Expires: 02/02/2024 [facility] Work Phone: Comment on above: Expected: 02/02/2024 (Approximate), Expires: 02/02/2024 Start: 01-31-2024 Depression Screening Depression Scre ening [facility] Start: 01-24-2024 Adult BMI Screening Adult BMI Screen ing [facility] Start: 01-24-2024 Tobacco Screening Tobacco Screening [facility] Start: 10-07-2023 Influenza vaccination Influenza Vacc ine [facility] Start: 06-18-2023 End: 06-18-2023 Patient encounter procedure 06/18/2023 10:15 AM EDT [facility] [address] [place] [phone] Feli Nguyen, AMMUNITION OFFICER-MOLDING TECHNICIAN [address] [facility] [place], [place] [id number] [facility] Start: 05-07-2023 End: 05-07-2023 ambulatory 05/07/2023 8:45 AM EDT Support [facility] [place] [address] [place] [phone] [facility] [place] Start: 04-16-2023 End: 04-16-2023 ambulatory 04/16/2023 8:00 AM EDT [facility] [place] [address] [place] [address] [facility] Start: 04-02-2023 End: 04-02-2023 ambulatory 04/02/2023 1:30 PM EST Visit [facility] [address] [address] Sandra Bhatia PA [address] [place] [address] [facility] Start: 03-20-2023 End: 03-20-2023 Patient encounter procedure 03/20/2023 12:45 PM EST Office Visit [facility] [address] [facility] [address] [place] [phone] Feli Nguyen, AMMUNITION OFFICER-MOLDING TECHNICIAN [address] [facility] [facility] [place] [address] [facility] Start: 02-26-2023 End: 02-26-2023 ambulatory 02/26/2023 11:15 AM EST Visit [facility] [address] [place] [phone] [facility] Start: 02-21-2023 End: 02-21-2023 Patient encounter procedure 02/21/2023 1:45 PM EST Office Visit [facility] [address] [facility] [address] [phone] Feli Nguyen, AMMUNITION OFFICER-MOLDING TECHNICIAN [address] [facility] [facility] [place] [address] [facility] Start: 02-19-2023 End: 02-19-2023 Patient encounter procedure 02/19/2023 11:00 AM EST Appointment [facility] [address] [place] [address] [facility] Start: 02-06-2023 End: 02-06-2023 ambulatory 02/06/2023 1:00 PM EST Initial [facility] [address] [place] [phone] [facility] Start: 02-01-2023 End: 02-01-2023 Patient encounter procedure 02/01/2023 3:00 PM EST Office Visit [facility] at [facility] [address] [place] [phone] Quinton Arita MD [address], [address] [place] [address] [facility] Start: 10-06-2022 Influenza vaccination Influenza Vacc ine [facility] Start: 04-27-2022 Urine screening for protein Urine Microalbumin [facility] Start: 02-01-2022 [facility] Work Phone: Start: 02-01-[address] [facility] Work Phone: Start: 02-01-2022 Patient transfer [facility] Work Phone: Start: 01-31-2022 Referral to ear, nos e and throat service [facility] Work Phone: Start: 01-31-2022 End: 01-31-2022 [facility] Work Phone: Start: 01-31-[address] [facility] Work Phone: Start: 01-31-[address] [facility] Work Phone: Start: 01-31-2022 Hospital admission, emergency, from emergency room [facility] Work Phone: Start: 01-31-[address] [facility] Work Phone: Start: 2018 Adult BMI Follow Up Plan Adult BMI Follow Up Plan [facility] Start: 2018 Diabetic foot examination Diabetic Foot Exam [facility] Start: 2000 COVID-19 Vaccine (#1) COVID-19 Vacci ne (#1) [facility] Start: 2000 Glaucoma screening Diabetic Op hthalmology Exam [facility] Start: 2000 Tobacco Counseling Tobacco Counselin g [facility] Bicarbonate [Moles/volume] in Blood [facility] Work Phone: Delta base, blood [facility] Work Phone: Measurement of venou s partial pressure of carbon dioxide [facility] Work Phone: Measurement of venou s partial pressure of oxygen [facility] Work Phone: Methicillin resistan t Staphylococcus aureus (MRSA) DNA [Presence] in Unspecified specimen by ROQUE with probe detection [facility] Work Phone: Methicillin resistan t Staphylococcus aureus [Presence] in Unspecified specimen by Organism specific culture [facility] Work Phone: Oxygen saturation in Venous blood [facility] Work Phone: Patient Education Tooth Abscess (DC) Diabetic Ketoacidosis (DC) [facility] Work Phone: Patient referral [facility] Work Phone: Vancomycin resistanc e Francisco gene [Presence] by Molecular method [facility] Work Phone: Immunizations Immunization Date Immunization Notes Care Provider Qamar izquierdo 02-02-2023 influenza, injectabl e, quadrivalent, preservative free [facility] Work Phone: [facility] 02-02-2023 tetanus toxoid, redu jonathan diphtheria toxoid, and acellular pertussis vaccine, adsorbed [facility] Work Phone: [facility] 02-02-2023 influenza virus vacc ine, unspecified formulation [facility] 04-20-2020 measles, mumps and rubella virus vaccine [facility] 03-25-2020 tetanus toxoid, redu jonathan diphtheria toxoid, and acellular pertussis vaccine, adsorbed [facility] 10-24-2019 influenza, injectabl e, quadrivalent, preservative free [facility] 10-24-2019 influenza virus vacc ine, unspecified formulation [facility] 11-22-2018 influenza, injectabl e, quadrivalent, preservative free [facility] 03-22-2018 influenza virus vacc ine, unspecified formulation [facility] 03-20-2018 influenza, injectabl e, quadrivalent, preservative free [facility] 11-28-2016 influenza, injectabl e, quadrivalent, preservative free [facility] 11-28-2016 meningococcal polysaccharide (groups A, C, Y and W-135) diphtheria toxoid conjugate vaccine (MCV4P) [facility] 09-27-2015 hepatitis A vaccine, pediatric/adolescent dosage, 2 dose schedule [facility] 09-27-2015 Human Papillomavirus 9-valent vaccine [facility] 03-03-2014 Human Papillomavirus 9-valent vaccine [facility] 03-03-2014 tetanus toxoid, redu jonathan diphtheria toxoid, and acellular pertussis vaccine, adsorbed [facility] 12-02-2012 influenza, seasonal, injectable, preservative free [facility] 07-24-2012 hepatitis A vaccine, pediatric/adolescent dosage, 2 dose schedule [facility] 07-24-2012 meningococcal polysaccharide (groups A, C, Y and W-135) diphtheria toxoid conjugate vaccine (MCV4P) [facility] 07-24-2012 tetanus toxoid, redu jonathan diphtheria toxoid, and acellular pertussis vaccine, adsorbed [facility] 09-15-2004 diphtheria, tetanus toxoids and acellular pertussis vaccine [facility] 09-15-2004 measles, mumps and rubella virus vaccine [facility] 09-15-2004 poliovirus vaccine, inactivated [facility] 04-16-2002 diphtheria, tetanus toxoids and acellular pertussis vaccine, unspecified formulation [facility] 04-16-2002 haemophilus influenz ae type b vaccine, conjugate unspecified formulation [facility] 04-16-2002 hepatitis B vaccine, pediatric or pediatric/adolescent dosage [facility] 04-16-2002 measles, mumps and rubella virus vaccine [facility] 04-16-2002 poliovirus vaccine, unspecified formulation [facility] 2000 diphtheria, tetanus toxoids and acellular pertussis vaccine, unspecified formulation [facility] 2000 haemophilus influenz ae type b conjugate and Hepatitis B vaccine [facility] 2000 poliovirus vaccine, inactivated [facility] 2000 diphtheria, tetanus toxoids and acellular pertussis vaccine, unspecified formulation [facility] 2000 pneumococcal conjuga te vaccine, [address] [facility] 2000 diphtheria, tetanus toxoids and acellular pertussis vaccine, unspecified formulation [facility] 2000 haemophilus influenz ae type b conjugate and Hepatitis B vaccine [facility] 2000 pneumococcal conjuga te vaccine, [address] [facility] 2000 poliovirus vaccine, inactivated [facility] Payers Date Payer Category Payer Private Health [place] [facility] [id number] 2022-Present [phone] [address] [place] [address] [id number] 2021 Medicaid [employer] [place] [id number] 2021-Present [address] [place] [address] [id number] 2021 Medicaid [id number] 2017 Unknown [id number]. [id number] 2000 Unknown [id number] 2.16.840.1.480690.3.579. 2.593 2000 Unknown [id number] 2.16.840.1.823562.3.579. 2.1259 2000 Unknown [id number] 2.16.840.1.930951.3.579. 2.1259 2000 Unknown [id number] 2.16.840.1.795807.3.579. 2.9 2000 Unknown [id number] 2.16.840.1.410058.3.579. 2.1259 2000 Unknown [id number] 2.16.840.1.829592.3.579. 2.9 2000 Unknown [id number] 2.16.840.1.336899.3.579. 2.1286 2000 Unknown [id number] 2.16.840.1.448138.3.579. 2.1286 2000 Unknown [id number] 2.16.840.1.467604.3.579. 2.1286 2000 Unknown [id number] 2.16.840.1.248943.3.579. 2.6 2000 Unknown [id number] 2.16.840.1.600269.3.579. 2.1286 2000 Unknown [id number] 2.16.840.1.624675.3.579. 2.1285 2000 Unknown [id number] 2.16.840.1.732368.3.579. 2.1286 2000 Unknown [id number] 2.16.840.1.273056.3.579. 2.1286 2000 Unknown [id number] 2.16.840.1.386149.3.579. 2.1286 2000 Unknown [id number] 2.16.840.1.531282.3.579. 2.1286 2000 Unknown [id number] 2.16.840.1.675828.3.579. 2.1286 2000 Unknown [id number] 2.16.840.1.427457.3.579. 2.1286 2000 Unknown [id number] 2.16.840.1.875405.3.579. 2.1286 2000 Unknown [id number] 2.16.840.1.931035.3.579. 2.1286 1959 Unknown [id number] 1959 Unknown [id number] Self-pay Unknown [id number] 2.16.840.1.745618.3.579. 2.139 Social History Date Type Detail Facility Start: 01-31-2022 Tobacco smoking stat [facility] Never smoked tobacco (finding) [facility] Work Phone: Start: 01-31-2022 None [facility] Work Phone: Start: 01-31-2022 < 1 pack per day [facility] Work Phone: Start: 01-31-2022 Yes [facility] Work Phone: Start: 01-31-2022 Nicotine [facility] Work Phone: Start: 2000 Sex Assigned At Female L [facility] Work Phone: Start: 07-22-2022 Tobacco smoking stat [facility] Ex-smoker [facility] History of tobacco use [facility] of tobacco use Cigarette Smoker P [facility] History of tobacco use [facility] Start: 07-22-2022 End: 02-01-2023 Tobacco use and exposure Smokeless tobacco non-user [facility] Start: 01-23-2023 End: 03-26-2023 Alcohol intake Ex-drinker (finding) [facility] Start: 10-11-2019 End: 02-17-2020 History of Social function [facility] Start: 10-11-2019 End: 02-17-2020 Social connection and isolation panel [facility] Do you belong to any clubs or organizations such as presybeterian groups, unions, fraternal or athletic groups, or school groups? No [facility] Are you now , , , , never or living with a partner? Never [facility] How hard is it for y ou to pay for the very basics like food, housing, medical care, and heating Not hard at all [facility] Do you feel stress - tense, restless, nervous, or anxious, or unable to sleep at night because your mind is troubled all the time - these days [OSQ] Not at all [facility] The thought of jennifer earline myself has occurred to me Never [facility] Start: 12-18-2018 Alcohol Comment occassional [facility] Start: 06-23-2022 [facility] Start: 05-13-2018 Gender identity Identifies as female gender (finding) [facility] Start: 05-13-2018 Sexual orientation Heterosexual (fin ding) [facility] Start: 02-01-2023 Tobacco smoking stat [facility] Smokes tobacco daily [facility] Start: 09-05-2022 Tobacco smoking stat [facility] Occasional tobacco smoker [facility] Start: 09-05-2022 Tobacco Comment 5 or less cigs / day; started smoking at 16yoThinking about quitting [facility] Start: 06-19-2022 Alcohol Comment Denies alcohol use [facility] NEGATED: Highlighted row [facility] Work Phone: Medical Equipment Procedure Code Equipment Code Equipment Origin al Text Equipment Identifier Dates 1 strip by miscellaneous route every 4 (four) hours as needed (illness or hyperglycemia). [id number] Start: 08-30-2022 Use in case of p ump failure [id number] Start: 09-27-2022 End: 03-20-2023 Accu-Chek Fastcl ix Lancets- Use to test blood glucose 8 times daily as directed. [id number] Start: 08-30-2022 End: 03-20-2023 BD Nettie Pen Need les Use as directed to give insulin injections via insulin pen up to 8 times daily [id number] Start: 05-31-2022 5 injections daily [id number] Start: 08-30-2022 End: 03-20-2023 5 injections daily [id number] Start: 03-26-2023 Goals Date Patient Goal Desired Activity /State Personal health goal Comment on above: Formatting of this n ote might be different from the original. Evaluation of progress towards goal: Safe dc transition from hospital to home. Functional Status Date Assessment Result Facility 01-31-2022 Functional status Yes [facility] Work Phone: Mental Status Date Assessment Result Facility 01-31-2022 Cognitive function Oriented to P erson, Place and Time [facility] Work Phone: Clinical Notes 01-31-2022 to 05-07-2023 Telephone Encounter - Joan Mosqueda RN - 05/07/2023 8:52 AM EDTTelephone Encounter - Joan Mosqueda RN - 05/07/2023 8:52 AM Mae Mosqueda RN - 05/07/2023 8:45 AM EDT Note Date & Type Note Facility 05-07-2023 Miscellaneous Notes Savi presented for her final pump education appointment today. Her pump upload is in media supervisor. To note: she ran out of insulin while at work and continued with insulin injections until this morning. Secondly, she lost her sensors at home (believes her daughter hid them). Not in control IQ and manually checking blood sugars. This morning BG was 253. I gave her a sample dexcom g7 sensor today to get back on control IQ. She is linked in [employer] and was instructed to keep the dank open and running. Thank you. documented in this encounter [facility] 05-07-2023 Telephone encounter Note Savi presented for her final pump education appointment today. Her pump upload is in [employer]. To note: she ran out of insulin while at work and continued with insulin injections until this morning. Secondly, she lost her sensors at home (believes her daughter hid them). Not in control IQ and manually checking blood sugars. This morning BG was 253. I gave her a sample dexcom g7 sensor today to get back on control IQ. She is linked in [employer] and was instructed to keep the dank open and running. Thank you. [facility]23 History of Presen t illness Narrative Insulin Pump Instruct Progress Note Savi Nguyen presented on 05/07/23 for an advanced features training on her insulin pump. The model maker plastic's Insulin Pump Training Checklist form and the Insulin Pump Start Orders form will be completed and attached to the final encounter (there are 3 encounters total) - please see that uploaded attachment for the checklists regarding specific details covered. Below are pertinent items from today's visit, Encounter 3 of 3. Item Description Notes (if applicable) Patient Diabetes Type Type 1 Diabetes Mellitus N/A Insulin Pump Type Tandem T-Slim G4 with dexcom G7 and control IQ To Note: Savi has lost her dexcom sensors and is not currently using control IQ. She is checking blood sugars manually. I was able to obtain one sensor sample for her so that she could get back on control IQ while looking for her supplies at home. [place]ine Start Date 04/12/23 N/A Insulin Start Date 04/16/23 N/A Patient verbalized understanding? yes Additional Considerations? yes - Savi presents for her final pump education appointment. She ran out of insulin while at work last week and continued on insulin injections as her back up for several days. Reconnected to pump just this morning. See above note that she is not in control IQ due to losing sensors. Last blood sugar check this mornin mg/dL. Her top knitter was unable to see data on tconnect. I double checked that she was linked which she is, however, she was not keeping her dank running in the background. I instructed her to keep it open. Pump was uploaded to media supervisor for review. See checklist for details covered. We reviewed bad site protocol, hyperglycemia and hypoglycemia. [facility] Diabetes and Nutrition Education documented in this encounter [facility] 04-16-2023 Miscellaneous Notes Savi started insulin in her tslim this morning. Blood sugar was 189 and straight across/stable arrow. She is linked through [employer]. I asked that she call into endo office for review in a few days. Her next follow up with your office is not until 06/18/23. Is this acceptable or would you like this moved up? Thank you. Also to note, Savi liked the idea of establishing with Dr. Carbone in [place] when she is transferred to adult care. May is fine. I will keep this open so that I remember to double check she calls in for a review. documented in this encounter [facility] 04-16-2023 Telephone encounter Note Savi started insulin in her tslim this morning. Blood sugar was 189 and straight across/stable arrow. She is linked through [employer]. I asked that she call into endo office for review in a few days. Her next follow up with your office is not until 06/18/23. Is this acceptable or would you like this moved up? Thank you. Also to note, Savi liked the idea of establishing with Dr. Carbone in [place] when she is transferred to adult care. [facility] 04-16-2023 Telephone encounter Note May is fine. I will keep this open so that I remember to double check she calls in for a review. [facility] 04-16-2023 History of Presen t illness Narrative Insulin Pump Instruct Progress Note Savi Nguyen presented on 04/16/23 for an insulin start on her insulin pump. The model maker plastic's Insulin Pump Training Checklist form and the Insulin Pump Start Orders form will be completed and attached to the final encounter (there are 3 encounters total) - please see that uploaded attachment for the checklists regarding specific details covered. Below are pertinent items from today's visit, Encounter 2 of 3. Item Description Notes (if applicable) Patient Diabetes Type Type 1 Diabetes Mellitus N/A Insulin Pump Type Tandem T-Slim G4 with dexcom g7 N/A Saline Start Date - N/A Insulin Start Date 04/16/23 Savi did well with insulin start. Recalled how to operate pump and delivered first bolus without difficulty. Filled new cartridge, loaded, and inserted new site into abdomen. I assisted to enter correct rates from physician order form. Patient verbalized understanding? yes Additional Considerations? yes - Savi does not have an top knitter appointment until 06/18/23. I will inquire if this should be moved up. I instructed her to call into endo office weekly until rates are matched to BG needs. She is linked to [facility] through Pediatric Endocrinology office. She plans to call endo office tomorrow or Sunday this week. Has final pump appointment scheduled for 05/07/23. [employer] Diabetes and Nutrition Education documented in this encounter [facility] 04-12-2023 Miscellaneous Notes Savi is starting a t:slim pump. Will need a prescription for Humalog vials please. Preferred pharmacy is [facility]. Max daily dose will be around 60-70 units daily. Her long acting amount is lower but her bolus amounts are large. Thank you! Please see Humalog vial prescription. [facility] Tele[facility] encounter Note Savi is starting a t:slim pump. Will need a prescription for Humalog vials please. Preferred pharmacy is [facility]. Max daily dose will be around 60-70 units daily. Her long acting amount is lower but her bolus amounts are large. Thank you! [facility] Telephone encounter Note Please see Humalog vial prescription. [facility] History of Presen t illness Narrative Insulin Pump Instruct Progress Note Savi Nguyen presented on 04/12/23 for a saline start on her insulin pump. [employer] Insulin Pump Training Checklist form and the Insulin Pump Start Orders form will be completed and attached to the final encounter (there are 3 encounters total) - please see that uploaded attachment for the checklists regarding specific details covered. Below are pertinent items from today's visit, Encounter 1 of 3. Item Description Notes (if applicable) Patient Diabetes Type Type 1 Diabetes Mellitus N/A Insulin Pump Type Tandem T-Slim G4 with dexcom g7 Previously on animas pump around 8 years ago Saline Start Date 04/12/23 N/A Insulin Start Date 04/16/23 N/A Patient verbalized understanding? yes Additional Considerations? no - Joslynmisbah recalled basics of pump therapy. Used saline to practice cartridge load and site insertion but then detached tubing. Practiced bolus feature. Gave written and verbal instructions on when/how to return with no insulin changes until day of pump appointment 04/15. [facility] Diabetes and Nutrition Education documented in this encounter [facility] 04-05-2023 Miscellaneous Notes Patient has received new Tandem insulin pump and will need training. Please sign pended referral if agreeable for education. Thanks! All set. Thanks documented in this encounter [facility] 04-05-2023 Telephone encounter Note Patient has received new Tandem insulin pump and will need training. Please sign pended referral if agreeable for education. Thanks! [facility] 04-05-2023 Telephone encounter Note All set. Thanks [facility] 04-05-2023 Miscellaneous Notes Pt called saying that they are almost out of Humalog. Pharmacy said they should have 25 days left and would need a new script in order to get more before then. Let me know if you need anything else! documented in this encounter [facility] 04-05-2023 Telephone encounter Note Pt called saying that they are almost out of Humalog. Pharmacy said they should have 25 days left and would need a new script in order to get more before then. Let me know if you need anything else! [facility] 03-20-2023 Miscellaneous Notes Pharmacy called and said they needed sliding scale and specific directions for insulin dosing for current pharmacist to dispense. I have updated script. documented in this encounter [facility] 03-20-2023 Telephone encounter Note Pharmacy called and said they needed sliding scale and specific directions for insulin dosing for current pharmacist to dispense. I have updated script. [facility] History of Presen t illness Narrative Subjective SUBJECTIVE: History of Present Illness: Savi is a 22 y.o. female who presents for a follow-up evaluation of Type 1 diabetes mellitus. Savi was last seen 05.31.2022. Interim History: Savi has delivered her baby and is here for follow up post-. She is currently on injections, but is interested in pump therapy. We discussed her using the t:slim X2 pump with CIQ and then we will plan for transition to an adult provider. Diabetes History: The initial diagnosis of type 1 diabetes was made in 2012 when the patient presented to [facility] at the age of 12. She had been treated for diabetes mellitus starting in 2011 with oral agents and insulin and was assumed to have type 2 diabetes. 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 Autoimmune antibody results include: GAD65 = positive, Celiac screen = negative, Thyroid AB = negative, FT4 = 0.82 ng/dL, TSH = 1.41 uIu/mL, Hgb A1c at diagnosis of T1D = 10.7%. Comprehensive diabetes education was completed as part of the post diagnosis period. Intermittent education has been received a minimum of yearly since diagnosis. Savi does work nights most days of the week. Hyperglycemia Management: Savi And family have been advised to avoid blood glucose values over 250 mg/dL as much as possible. Savi and family respond to high alerts on CGM in a timely manner to help minimize the amount of time spent in hyperglycemia daily. Savi usually boluses for food before eating. If blood glucose is >300 for more than 2-3 hours family has been instructed to follow sick day guidelines which include: more intensive monitoring, ketone testing every 3 hours, consider pump site change, give ketone correction if detected, zofran is available for nausea or vomiting, provider available ignition specialist for questions or concerns by calling [phone]. Past admissions for DKA after diagnosis: one. Hypoglycemia Management: Self treated hypoglycemia has been texperienced since last follow up. Lowest documented blood glucose value is: 69 mg/dL. Hypoglycemia is treated with fast acting carbohydrate including: juice, candy. Symptoms of hypoglycemia the are experienced by Savi include: shaky, sweaty. Savi and family respond to low alert and urgent low soon alert from CGM system such that severe hypoglycemia is avoided. Past occurrences of severe hypoglycemia requiring emergency medication: none. Current Diabetes Management Savi is not physically active. Diabetes diet consists of carbohydrate counting with flexible carbohydrate intake and no specific dietary limitations. Current injection insulin plan: Long Acting/Basal: Lantus, 10 units daily. Rapid Acting: Set meal doses of Breakfast 16 units, Lunch 26 units, Dinner 20 units; plus correction. Plus, blood glucose correction scale and ketone scale as needed. (See plan for up to date ketone coverage scale.) Correction scale: Blood glucose Insulin dose <130 0 units 131-160 1 unit 161-190 2 units 191-220 3 units 221-250 4 units 251-280 5 units 281-310 6 units 311-340 7 units 341-370 8 units 371-400 9 units 401-430 10 units 431-460 11 units 461-490 12 units 491-520 13 units 521-550 14 units 551-580 15 units 581-610 16 units >610 17 units Review of Systems: Diabetes: denies excessive thirst, denies frequent urination, denies vision changes, denies weight loss, denies frequent headaches, denies frequent nausea, denies frequent abdominal pain, denies frequent presence of ketones, denies significant hypoglycemia event since last visit, denies excessive pump site failure, denies frequent hypoglycemia Endocrine: denies cold intolerance, denies difficulty sleeping, denies dizziness, denies excessive sweating, denies heat intolerance, denies excessive fatigue, denies excessive hair shedding, denies excessive dry skin. Female only: LMP 5.2022, age of menarche 10. Dental care: routinely sees dentist twice a year. Eye care: routine dilated eye exam reported in last 12 months. Foot care: routine examination by patient of foot health is completed regularly. Other systems: 14 point ROS negative except as detailed in HPI Past Medical History: Diagnosis Date Anemia Hx of Asthma Chronic ITP (idiopathic thrombocytopenic purpura) ([facility] [place] Diabetes type 1, controlled ([facility] [place] Diabetic ketoacidosis without coma associated with type 1 diabetes mellitus ([facility] [place] 02/07/2021 DKA (diabetic ketoacidoses) 02/10/2020 DKA, type 1 ([facility] [place] 10/11/2019 H/O idiopathic thrombocytopenic purpura Hx of in childhood Obesity 07/05/2022 UTI (urinary tract infection) Hx of Social History Social History Narrative Lives with family. No Known Allergies Current Outpatient Medications Medication Sig Dispense Refill acetone, urine, test strip 1 strip by miscellaneous route every 4 (four) hours as needed (illness or hyperglycemia). 100 strip 3 blood-glucose sensor ([employer] G7 SENSOR) device Change sensor every 10 days 3 each 11 glucagon HCL (GLUCAGON, HCL, EMERGENCY KIT) 1 mg recon soln Inject 1 mg as directed as needed (severe hypoglycemia or seizure). 2 each 1 ibuprofen (MOTRIN) 800 mg tablet Take 1 tablet (800 mg total) by mouth every 8 (eight) hours as needed for pain. 30 tablet 0 insulin glargine (LANTUS SOLOSTAR U-100 INSULIN) 100 unit/mL (3 mL) insulin pen 9 units s/q am and 0 units s/q bedtime. 2 units to prime. 15 mL 5 insulin lispro (HumaLOG) 100 unit/mL insulin pen Inject 6 Units under the skin daily with breakfast. 15 mL 12 insulin lispro (HumaLOG) 100 unit/mL insulin pen Inject 7 Units under the skin daily with lunch. 15 mL 12 insulin lispro (HumaLOG) 100 unit/mL insulin pen Inject 9 Units under the skin daily with dinner. 15 mL 12 pen needle, diabetic (BD NETTIE 2ND GEN PEN NEEDLE) 32 gauge x 5/32 needle BD Nettie Pen [place] Use as directed to give insulin injections via insulin pen up to 8 times daily 300 each 3 acetaminophen (TYLENOL EXTRA STRENGTH) 500 mg tablet Take 2 tablets (1,000 mg total) by mouth every 8 (eight) hours as needed for pain. (Patient not taking: Reported on 02/26/2023) 30 tablet 0 blood-glucose meter ([employer] VERIO REFLECT METER) misc 1 Device by miscellaneous route in the morning. (Patient not taking: Reported on 11/14/2022) 1 each 1 docusate sodium (COLACE) 100 mg capsule Take 1 capsule (100 mg total) by mouth in the morning and 1 capsule (100 mg total) before bedtime. (Patient not taking: Reported on 02/26/2023) 60 capsule 0 drospirenone, contraceptive, 4 mg (28) tablet Take 4 mg by mouth in the morning. (Patient not taking: Reported on 02/26/2023) 84 tablet 3 insulin syr/ndl U100 half yazan (BD INSULIN SYRINGE, HALF UNIT,) 0.3 mL 31 gauge x 5/16 syringe Use in case of pump failure (Patient not taking: Reported on 11/13/2022) 100 each 11 lancets (ACCU-CHEK FASTCLIX LANCET DRUM) [facility] Accu-Chek Fastclix Lancets- Use to test blood glucose 8 times daily as directed. (Patient not taking: Reported on 02/01/2023) 306 each 6 pen needle, diabetic (BD NETTIE 2ND GEN PEN NEEDLE) 32 gauge x 5/32 needle 5 injections daily (Patient not taking: Reported on 11/13/2022) 150 each 11 PNV 19-IRON PS,JYGT-[id number] ORAL Take 1 tablet by mouth Daily at 0700. (Patient not taking: Reported on 02/26/2023) No current facility-administered medications for this visit. The following portions of the patient's history were reviewed and updated as appropriate: allergies, current medications, past family history, past medical history, past social history, past surgical history, problem list, and medication reconciliation was completed including current medication and post discharge medication. Objective OBJECTIVE: Vitals: 03/20/23 1242 BP: 122/76 Pulse: 87 Growth %ile SmartLinks can only be used for patients less than 20 years old. Wt Readings from Last 3 Encounters: 03/20/23 89.9 kg (198 lb 3.2 oz) 02/26/23 90.7 kg (199 lb 14.4 oz) 02/16/23 95.7 kg (211 lb) Ht Readings from Last 3 Encounters: 03/20/23 163 cm (5' 4.17 ) 02/16/23 162.6 cm (5' 4 ) 02/01/23 162.6 cm (5' 4 ) Body mass index is 33.84 kg/m . Physical Exam: GENERAL APPEARANCE: Awake alert and oriented in no acute distress, No syndromic or dysmorphic features. HEAD: normocephalic, atraumatic, No facial rounding. SKIN: no vitiligo noted, no lipohypertrophy. HAIR: normal hair pattern,no hirsuitism. EYES: PERRL, extraocular movement full and smooth, no exopthalmos present, no lid retraction noted. NOSE: nares patent, no discharge. MOUTH/JAW: normal, good dentition, mucosa moist, palate normal. THROAT: clear, no exudate. NECK: symetrical, No tracheal deviation. THYROID: normal size, no nodules, non tender, no bruits. CHEST: normal, symmetrical no costochondral tenderness. LUNGS: clear to auscultation bilaterally, good air movement. HEART: Regular with no murmurs, S1, S2 normal. PULSES: intact pulses, Normal Radial, Normal Posterior Tibial. ABDOMEN: soft, non tender, nondistended, normal BACK: normal, non tender FEMALE GENITOURINARY: not examined. MUSCULOSKELETAL: full range of motion, no swelling or deformity. NEUROLOGIC: alert and oriented, cranial nerves 2-12 grossly intact, nonfocal, deep tendon reflexes 2+ symmetrical. PSYCH: alert, oriented, good eye contact, cooperative with exam. Lab Results Component Value Date NHFQTMS2O 6.8 03/20/2023 UJJQDYH6G 5.9% 01/23/2023 IJYMRRF2B 6.7% 11/13/2022 Plan ASSESSMENT AND PLAN: Assessment and Plan: Assess/Plan SmartLinks: Savi was seen today for follow-up. Diagnoses and all orders for this visit: Type 1 diabetes mellitus with hyperglycemia ([facility]) - POCT Hemoglobin A1c 1. Medications changes: Increase Lantus to 12 units daily and resume carb counting. 2. Education topics discussed in visit: carb:insulin ratio, use of sliding scale/correction formula, blood glucose target ranges , and Hb A1c result and interpretation 3. Follow up in 3 months with myself. 4. Annual labs Due, not ordered today. 5. I will order your pump. Tandem will contact you from a [place] number. Injection insulin plan: Long Acting/Basal: Lantus, daily dose 12 units. Rapid Acting: Humalog , carb ratio 1:6. Plus, blood glucose correction scale: Correction scale: Blood glucose Insulin dose <130 0 units 131-160 1 unit 161-190 2 units 191-220 3 units 221-250 4 units 251-280 5 units 281-310 6 units 311-340 7 units 341-370 8 units 371-400 9 units 401-430 10 units 431-460 11 units 461-490 12 units 491-520 13 units 521-550 14 units 551-580 15 units 581-610 16 units >610 17 units Ketone scale: Trace: give 0.5 additional unit/units with correction Small: give 1 additional unit/units with correction Moderate: give 2 additional unit/units with correction Large: give 3 additional unit/units with correction Sick day plan: If nausea or vomiting give Zofran. If vomiting occurs more than 2 times after giving Zofran or unable to tolerate fluids, call the office at [phone]. If after office hours call [phone] for ignition specialist nurse. Check for ketones. If ketones are present, see ketone scale below for additional insulin to be given every 3 hours. Increase fluid intake, if vomiting start with 3-5mL of fluid every 5-10 minutes and gradually increase until tolerating regular amount of fluids. If ketones are moderate or large x3 checks in a row call the office or after hours. 5. If you need an excuse for missed school, please call during normal office hours and state the date and school to send the excuse to for your child. CGM Procedure: Savi is using a continuous glucose monitoring system. The system was initiated in 2021. Savi wears it consistently or performs a minimum of 4 blood glucose checks with glucose meter when not able to use CGM. CGM is used as long as supplies are available and it is operating properly. Short breaks may be taken due to insurance supply issues or frequent sensor issues. Savi and family have received CGM education for device use and troubleshooting in clinic as well as comprehensive diabetes education with yessy HAMILTON at the [facility] Diabetes Education department. Savi and family have demonstrated understanding of technology and are motivated to use the device correctly and consistently and are expected to follow the personalized diabetes management plan that has been developed by our team and the family and are capable of using the device and recognizing alerts and alerts and alarms and responding to them appropriately. Indications for CGM placement include history of hypoglycemia unawareness; history of severe glycemic excursions;recurring episodes of severe hypoglycemia; day-to-day variations in work schedule, mealtimes and activity level, which confound the degree of regimentation required to self-manage glycemia with multiple insulin injections; additionally, patient has displayed multiple alterations in self-monitoring and insulin regimens to optimize care. Dexcom Clarity savi Nguyen Date of : 2000 Generated at: Mar 26, 2023 8:06 PM EST Reporting period: SunMar 07, 2023 - SunMar 20, 2023 Glucose Details Average glucose: 185 mg/dL Standard deviation: 64 mg/dL GMI: 7.7% Time in Range Very High: 16% High: 39% In Range: 42% Low: 2% Very Low: <1% Target Range 70-180 mg/dL CGM Details Sensor usage: 100% Days with CGM data: There is a pattern of hyperglycemia from 12am to 1amd and from 5am to 7am. Insulin dosing adjustments were made based on these interpretations. SUSANNA Estrada 03/26/232007 documented in this encounter [facility] 03-19-2023 History of Presen t illness Narrative Reason for Appointment: Patient ID: Savi Nguyen is a 22 y.o. female who presents for Post-op Visit (6 week post visit. Delivered c/s 02/16/2023 @ [facility]) Patient presents today for Acute Visit appointment. Current Medications: has a current medication list which includes the following prescription(s): aspirin, insulin glargine, insulin lispro, and pnv plus multivitamin. Medical History: Active Ambulatory Problems Diagnosis Date Noted Anemia 08/03/2022 Diabetic ketoacidosis associated with type 1 diabetes mellitus (HCC) [place] [place] 08/03/2022 Other hammer toe(s) (acquired), unspecified foot 08/03/2022 Type 1 diabetes mellitus ([facility]) 08/03/2022 Type 2 diabetes mellitus without complications ([facility] [place] 08/03/2022 Resolved Ambulatory Problems Diagnosis Date Noted No Resolved Ambulatory Problems Past Medical History: Diagnosis Date BMI 30.0-30.9,adult Diabetes ([facility]) Diabetes mellitus type 1 ([facility]) DKA, type 1 ([facility] [place]) Encounter for well woman exam with routine gynecological exam 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 ([facility] [place]) 2004 Patient desires Family History Problem Relation Name Age of Onset Hypertension Mother Hypertension Father Diabetes Father Social History Tobacco Use Smoking status: Some Days Packs/day: 0.25 Years: 16.00 Additional pack years: 0.00 Total pack years: 4.00 Types: Cigarettes Smokeless tobacco: Not on file Tobacco comments: 5 or less cigs/ day; started smoking at 16yo Thinking about quitting Vaping Use Vaping Use: Every day Substances: Nicotine, Flavoring Substance Use Topics Alcohol use: Not Currently Comment: Denies alcohol use Drug use: Not Currently Types: Marijuana Past Surgical History: Procedure Laterality Date SECTION, CLASSIC 09/2018 stillborn (3 days hospitalization history) SECTION, CLASSIC 02/16/2023 No Known Allergies Review of Systems: Review of Systems Constitutional: Negative. HENT: Negative. Eyes: Negative. Respiratory: Negative. Cardiovascular: Negative. Gastrointestinal: Negative. Musculoskeletal: Negative. Skin: Negative. Neurological: Negative. Psychiatric/Behavioral: Negative. All other systems reviewed and are negative. Hematological: Negative. Endocrine: Negative. Objective Physical Exam Constitutional: Appearance: Normal appearance. She is normal weight. HENT: Head: Normocephalic. Cardiovascular: Rate and Rhythm: Normal rate. Pulses: Normal pulses. Pulmonary: Effort: Pulmonary effort is normal. Breath sounds: Normal breath sounds. Abdominal: Palpations: Abdomen is soft. Comments: Pfannenstiel incision is dry, no drainage at this time, some tissue adhesive remains Musculoskeletal: General: Normal range of motion. Neurological: General: No focal deficit present. Mental Status: She is alert and oriented to person, place, and time. Psychiatric: Mood and Affect: Mood normal. Behavior: Behavior normal. Thought Content: Thought content normal. Judgment: Judgment normal. Vitals and nursing note reviewed. Vitals: Estimated body mass index is 33.81 kg/m as calculated from the following: Height as of 08/03/22: 5' 4 . Weight as of this encounter: 197 lb. BP: 122/74 Patient's last menstrual period was 06/03/2022. Assessment/Plan Encounter Diagnoses Name Primary? Postop check 6 weeks follow-up S/P section Wound examined and cleaned, tissue adhesive removed. No sign of infection at this time. Pt to return in 2 weeks for 6 week post . Pt will follow up sooner if necessary Documented by STEPHANE Henriquez on behalf of: STEPHANE Henriquez documented in this encounter [facility] 02-26-2023 History of Presen t illness Narrative Seen today for follow up care to C/S 02/16 States bleeding is good, minimal, occ gush when pumping States incision healing well No new concerns Monitoring BG on dexcom, admits to some higher results under 250 EPDS :0 PP visit Pt is 10 days postop from repeat c section. Patient Active Problem List Diagnosis Mild intermittent asthma Hemoglobin C trait (CMS-HCC) Iron deficiency anemia, unspecified Iron malabsorption Acute bronchitis Non-intractable vomiting with nausea 12 weeks gestation of Pre-existing type 1 diabetes mellitus during in third trimester Labile blood glucose Hypoglycemia Type 1 diabetes mellitus (CMS-HCC) Type 1 diabetes mellitus affecting in third trimester, antepartum Delivery by elective section She feels well overall. Pain is controlled with current regimen. She states she is checking her blood sugars and taking insulin as written, blood sugars are all over the place . She desires a pill for contraception. EPDS 0 Vitals: 02/26/23 1116 BP: 110/64 Temp: 36.8 C (98.2 F) General: A&Ox3 Abdomen: soft, appropriately tender Incision: clean, dry, intact, glue still in place Plan Discussed incision care/continued restrictions x 6 wks Encouraged her to call her top knitter to help manage blood sugars Follow-up with primary OBGYN in [place] for continued post often care She desires pill for contraception, will discuss with her OB in [place] RTC as needed Yessy Pedersen DO documented in this encounter [facility] 02-23-2023 Miscellaneous Notes This note was copied from a baby's chart. Met with mom at infant's bedside, preparing for discharge. States that she continues to pump for baby, getting about 1oz every 3-4 hours. Denies pain or discomfort with pumping. Encouraged to continue pumping 8-12 times a day to continue establishing supply once baby is home and to call for any outpatient needs. documented in this encounter [facility] 02-23-2023 Obstetrics Note This note was copied from a baby's chart. Met with mom at infant's bedside, preparing for discharge. States that she continues to pump for baby, getting about 1oz every 3-4 hours. Denies pain or discomfort with pumping. Encouraged to continue pumping 8-12 times a day to continue establishing supply once baby is home and to call for any outpatient needs. [facility] 02-20-2023 Miscellaneous Notes This note was copied from a baby's chart. Met with mother at 's bedside. States she is pumping 1oz q3 with no pain. Interested in latching baby. Encouraged to reach out if she would like assistance with latching. Questions answered and support given. DEEP LATCH SUGGESTIONS: -position baby at level of the breast, use lots of pillows for support -position baby belly to belly , with ear in line with shoulder and hip -use one hand to support baby at the shoulders to help with head control and keep airway straight and open -point nipple toward nose/roof of baby's mouth -wait for baby to open wide, bring on chin-first for an asymmetrical latch : scoop as much of bottom breast tissue/areola into baby's mouth first, then bring baby up and over to complete a deep latch *if latch becomes uncomfortable or appears shallow, break seal with finger to take baby off, try to latch again documented in this encounter [facility] 02-20-2023 Obstetrics Note This note was copied from a baby's chart. Met with mother at 's bedside. States she is pumping 1oz q3 with no pain. Interested in latching baby. Encouraged to reach out if she would like assistance with latching. Questions answered and support given. DEEP LATCH SUGGESTIONS: -position baby at level of the breast, use lots of pillows for support -position baby belly to belly , with ear in line with shoulder and hip -use one hand to support baby at the shoulders to help with head control and keep airway straight and open -point nipple toward nose/roof of baby's mouth -wait for baby to open wide, bring on chin-first for an asymmetrical latch : scoop as much of bottom breast tissue/areola into baby's mouth first, then bring baby up and over to complete a deep latch *if latch becomes uncomfortable or appears shallow, break seal with finger to take baby off, try to latch again [facility] 02-01-[address] [facility] Medical Records Patient: SAVI NGUYEN [address] : [address] [place], [place] [address] Location: ICU [phone] Unit #: [id number] [facility] #: [id number] Discharge Summary Tee Tamayo Cielo PATEL Patient Information Admit Date: 01/31/22 Attending Provider: [...] Reconciliation: New amoxicilli (more content not included)... [facility] 01-31-[address] [facility] Medical Records Patient: SAVI NGUYEN [address] : [address] [place], [place] [address] Location: ICU [phone] Unit #: [id number] History and Physical Joe Ulloa CNP Date [...] at 150 ml/h (more content not included)... [facility] Evaluation note Diagnosis Onset Date Dental infection acute Diabetes type I acute Diabetic ketoacidosis acute [facility] Work Phone: Evaluation note* Diagnosis Onset Date Resolution Status Dental infection acute Diabetes type I acute Diabetic ketoacidosis resolv ed [facility] Work Phone: Evaluation note* Diagnosis Pre-existing type 1 diabetes mellitus during in third trimester- Primary History of stillbirth in patient in third trimester, antepartum [facility] Diagnosis care and examination- [facility] Diagnosis Postop check Follow-up examination, following unspecified surgery 6 weeks follow-up S/P section Other postprocedural status [facility] Diagnosis Type 1 diabetes mellitus with hyperglycemia (CMS-HCC)- Primary [facility] Diagnosis Type 1 diabetes mellitus with hyperglycemia (CMS-HCC)- [facility] Diagnosis Type 1 diabetes mellitus with hyperglycemia (CMS-HCC) [facility] Diagnosis Type 1 diabetes mellitus with hyperglycemia (CMS-HCC)- Primary [facility] Additional Instructions Activity: No restrictions Diet: No restrictions Driving instructions: No driving restrictions Bathing Instructions: No restrictions Follow Up Labs/X Rays/Procedures after discharge: [facility] Work Phone: InstructionsNot on filedocumented in this encounter [facility] on filedocumented in this encounter [facility] filedocumented in this encounter [facility] on filedocumented in this encounter [facility] (narrative)* Consultation (Routine) - Pending Review Specialty Diagnoses / Procedures Referred By Yefri gibbs Referred To Contact Endocrinology, Diabetes & Metabolism Diagnoses Type 1 diabetes mellitus with hyperglycemia ([facility]) Feli Nguyen, AMMUNITION OFFICER-MOLDING TECHNICIAN [address] [facility] [place] [address] [facility] [address] [facility] [place] [address] Referral ID Status Reason Start Date Expiration Date Visits Requested Visits Authorized [id number] Pending Review Specialty Services Required 04/05/2023 04/04/2024 1 1 System Summary Purpose Family History No Family History Records Found Relationship Condition Age at Onset Recorded Date/T john Not Specified No pertinent family history Unknown Advance Directives No Advanced Directives Records Found Advance Directive Response Recorded Date/ Time [facility] DNR Comfort Care No Directive, No SS Referral February 01, 2022 1:55pm [facility] DNR Comfort Ca re Arrest No Directive, No SS Referral February 01, 2022 1:55p m Living Will Unknown January 31, 022 4:13am Durable Power of [employer] [facility] Care No Directive, No SS Referral February [...] Code 10/10/2019 7:30 PM 10/12/2019 6:27 PM Latest Code Status on File Code Status Date Activated Date Inactivated Comments Full Code 02/16/2023 10:51 AM 02/20/2023 4:12 PM Code Status History Code Status Date Activated Date Inactivated Comments Full Code 02/01/2023 6:07 PM 02/10/2023 5:36 PM Full Code 11/14/2022 7:45 PM 11/17/2022 6:44 PM Full Code 02/07/2021 11:30 PM 02/12/2021 1:31 PM Full Code 04/17/2020 8:36 AM 04/20/2020 6:22 PM Latest Code Status on File Code Status Date Activated Date Inactivated Comments Full Code 02/16/2023 10:51 AM 02/20/2023 4:12 PM Code Status History Code Status Date Activated Date Inactivated Comments Full Code 02/01/2023 6:07 PM 02/10/2023 5:36 PM Full Code 11/14/2022 7:45 PM 11/17/2022 6:44 PM Full Code 02/07/2021 11:30 PM 02/12/2021 1:31 PM Full Code 04/17/2020 8:36 AM 04/20/2020 6:22 PM Chief Complaint and Reason for Visit Chief Complaint DKA/SEPSIS Reason for Visit Dental infection Diabetes type I Diabetic ketoacidosis Reason for Referral Specialty Diagnoses / Procedures Referred By Contac t Referred To Contact Maternal and Medicine Diagnoses Pre-existing type 1 diabetes mellitus during in third trimester History of stillbirth in patient in third trimester, antepartum Procedures [facility] with or without consult Eliane Slaughter MD [address], [address] [place] [id number] [facility] Maternal Med [address] [place] [address] Referral ID Status Reason Start Date Expiration Date V isits Requested Visits Authorized [id number] Pending Review 02/01/2023 02/01/2024 1 1 Additional Source Comments INFORMATION SOURCE (unrecogn ized section and content) DATE CREATED AUTHOR 06/28/2021 [facility] DATE CREATED AUTHOR AUTHOR'S ORGANIZ ATION 02/01/2022 [facility] DATE CREATED AUTHOR AUTHOR'S ORGANIZ ATION 03/20/2023 [facility] EPIC DATE CREATED AUTHOR AUTHOR'S ORGANIZ ATION 05/07/2023 [facility] DATE CREATED AUTHOR AUTHOR'S ORGANIZ ATION 08/03/2023 [facility] DATE CREATED AUTHOR AUTHOR'S ORGANIZ ATION 08/24/2023 [facility] Goals (unrecognized section and content) Goals may be documented in a n alternate sectionGoals may be documented in an alternate section Care Teams (unrecognized sec tion and content) Quarter Folder Relationship Specialty Start Date End Date Services, [facility] [address] [place] PCP - General Family Medicine 03/03/18 Quarter Folder Relationship Specialty Start Date End Date Services, [facility] [address] [place] PCP - General Family Medicine 03/03/18 Quarter Folder Relationship Specialty Start Date End Date Services, [facility] [address] [place] PCP - General Family Medicine 03/03/18 Quarter Folder Relationship Specialty Start Date End Date Services, [facility] [address] [place] PCP - General Family Medicine 03/03/18 Quarter Folder Relationship Specialty Start Date End Date Services, [facility] [address] [place] PCP - General Family Medicine 03/03/18 Quarter Folder Relationship Specialty Start Date End Date Services, [facility] [address] [place] PCP - General Family Medicine 03/03/18 Quarter Folder Relationship Specialty Start Date End Date Services, [address] PCP - General [facility] Medicine 03/03/18 Quarter Folder Relationship Specialty Start Date End Date Services[address] PCP - General [facility] Medicine 03/03/18 Quarter Folder Relationship Specialty Start Date End Date Services, [address] PCP - General Family Medicine 03/03/18 Reason for Visit (unrecogniz ed section and content) Reason Comments Care Reason Comments Post-op Visit 6 week post v isit. Delivered c/s 02/16/2023 @ [facility] Reason Comments Follow-up diabetes Reason Onset Date Comments Med Refill 03/20/2023 Reason Onset Date Comments Med Refill 04/05/2023 Reason Comments Pump Training 1 Specialty Diagnoses / Procedures Referred By Yefri t Referred To Contact Endocrinology, Diabetes & Metabolism Diagnoses Type 1 diabetes mellitus with hyperglycemia ([facility]) Feli Nguyen, AMMUNITION OFFICER-MOLDING TECHNICIAN [address] [place] [address], [address] [place] [address] [facility] [address] [place] [address], [address] [place] [address] Referral ID Status Reason Start Date Expiration Date Visits Requested Visits Authorized [id number] Pending Review Specialty Services Required 04/05/2023 04/04/2024 1 1 Reason Comments Pump Training 2 Reason Comments Pump Training final FOR RECORDS PERTAINING TO PATIENTS WHO ARE [...] BE BASED ON THE PRIMARY CLINICAL RECORDS. [employer] provides no warranty or guarantee of the accuracy or completeness of information in this document.
--- NOTE | 2023-10-31 17:18 | ED.GENADUL1 ---
HPI HPI - General Adult General Chief complaint: Back Pain/Injury Stated complaint: Constipation Time Seen by Provider: 10/31/23 17:07 Source: patient Mode of arrival: walk-in History of Present Illness HPI narrative: Patient is a 23-year-old female who presents to the emergency department for a 1 week history of pain in the right flank and diffuse abdominal pain. She states she has not had a bowel movement in 1 week and thinks she is constipated. She is also concerned that she has a urinary tract infection or kidney infection because she is diabetic. She uses insulin at home. No fevers. She states she did have an episode of vomiting last week and had 2 episodes of vomiting earlier this week. She is unsure if she may be . She has been using [id number] laxatives without improvement. She has had 2 previous C-sections but denies any other abdominal surgeries. Related Data Home Medications ?Medication ?Instructions ?Recorded ?Confirmed aspirin 81 mg capsule 81 mg PO DAILY 01/23/23 01/31/23 insulin glargine 100 unit/mL 20 unit subcut QPM 01/23/23 01/31/23 subcutaneous solution (Lantus U-100 Insulin) insulin glargine 100 unit/mL 22 unit subcut QAM 01/23/23 01/31/23 subcutaneous solution (Lantus U-100 Insulin) insulin lispro 100 unit/mL 22 unit subcut QAM 01/23/23 01/31/23 subcutaneous pen insulin lispro 100 unit/mL 26 unit subcut DAILY 01/23/23 01/31/23 subcutaneous pen insulin lispro 100 unit/mL 32 unit subcut QPM 01/23/23 01/31/23 subcutaneous pen [id number] 1 mg tab PO 01/23/23 tablet Previous Rx's ?Medication ?Instructions ?Recorded cephalexin 500 mg capsule 500 mg PO Q8H 10 days #30 caps 10/31/23 fluconazole 150 mg tablet 150 mg PO ONCE 1 day #1 tab 10/31/23 hydrocodone 5 mg-acetaminophen 325 1 tab PO Q6H PRN pain 3 days #12 10/31/23 mg tablet tabs magnesium citrate (Citrate of 296 ml PO DAILY constipation #296 10/31/23 Magnesia oral) mL ondansetron 4 mg disintegrating 4 mg PO Q6H PRN nausea and 10/31/23 tablet vomiting #12 tabs Allergies Allergy/AdvReac Type Severity Reaction Status Date / Time No Known Drug Allergies Allergy Verified 07/31/22 20:45 Opioid HPI Opioid Management Most Recent Opioid Data: No Data to Display Review of Systems ROS Constitutional Denies: fever or chills Ears, nose, mouth, and throat Denies: throat pain or nasal congestion Cardiovascular Denies: chest pain Respiratory Denies: shortness of breath Gastrointestinal Reports: abdominal pain, nausea, vomiting and constipation; Denies: diarrhea Musculoskeletal Reports: back pain; Denies: neck pain Hematologic/Lymphatic Denies: easy bruising or easy bleeding PFSH [facility] Social History Smoking status: Current every day smoker Exam Narrative Exam Narrative: Gen.: Awake, alert, in no distress Head: Normocephalic, atraumatic ENT: Moist mucous membranes Respiratory: No respiratory distress, lungs clear bilaterally Cardio: Regular rate and rhythm Gastrointestinal: Abdomen is soft, nondistended and diffuse tender to palpation with no guarding or rebound, no CVA tenderness Extremities: Moves extremities equally, no injuries noted Psych: Normal mood and affect Neuro: No focal neuro deficit Skin: Warm, dry, intact Constitutional Vital Signs, click to edit/add: Last Vital Signs Temp 99.4 F 10/31/23 17:05 Pulse 110 H 10/31/23 17:05 Resp 16 10/31/23 17:05 BP 124/82 10/31/23 17:05 Pulse Ox 98 10/31/23 17:05 O2 Del Method Room Air 10/31/23 17:05 Course Vital Signs Vital signs: Vital Signs Temperature 99.4 F 10/31/23 17:05 Pulse Rate 110 H 10/31/23 17:05 Respiratory Rate 16 10/31/23 17:05 Blood Pressure 124/82 10/31/23 17:05 Pulse Oximetry 98 10/31/23 17:05 Oxygen Delivery Method Room Air 10/31/23 17:05 Temperature 99.4 F 10/31/23 17:05 Pulse Rate 110 H 10/31/23 17:05 Respiratory Rate 16 10/31/23 17:05 Blood Pressure 124/82 10/31/23 17:05 Pulse Oximetry 98 10/31/23 17:05 Oxygen Delivery Method Room Air 10/31/23 17:05 Medical Decision Making MDM Narrative Medical decision making narrative: Patient was treated with IV fluids, Toradol, Levsin, Zofran in the ER after her test came back negative. Her urine specimen does show urinary tract infection with yeast present. She was given IV Rocephin and Diflucan in the ER. Lab studies show mild leukocytosis with initially elevated lactic acid. Glucose is also elevated. CT shows cystitis with possible early pyelonephritis. Patient is hemodynamically stable, resting comfortably on reevaluation. I discussed with her because she is diabetic and has evidence of early pyelonephritis versus UTI with meeting criteria for sepsis, she should be admitted to the hospital for IV antibiotics. Patient prefers outpatient management. I discussed with her that she will need to take 10 days of antibiotics and be followed closely by her PCP. If her symptoms are not improving in the next 24 to 48 hours, she will need to return to the emergency department for admission. She verbalizes understanding. Keflex, Gove, Zofran and Diflucan given for home. SUPERVISED APC VISIT, PHYSICIAN ATTESTATION: Based on the medical record the care appears appropriate. ? Medical Records Medical records reviewed: Yes I reviewed the patient's medical records Lab Data Lab results reviewed: Yes I reviewed the patient's lab results Labs: Lab Results 10/31/23 10/31/23 10/31/23 Range/Units 17:19 17:24 19:10 WBC 13.4 H (4.0-11.0) 10^3/uL RBC 5.22 (4.20-5.40) 10^6/uL Hgb 14.2 (12.0-16.0) g/dL Hct 39.2 (36.0-48.0) % MCV 75.1 L (81.0-99.0) fL MCH 27.2 (26.7-34.0) pg MCHC 36.2 H (29.9-35.2) g/dL RDW 13.9 (11.0-15.0) % Plt Count 284 (150-450) 10^3/uL MPV 11.9 (9.5-13.5) fL Neut % (Auto) 80.9 H (43.0-75.0) % Lymph % (Auto) 10.6 L (20.5-60.0) % [place] % (Auto) 6.5 (1.7-12.0) % Eos % (Auto) 1.3 (0.9-7.0) % Baso % (Auto) 0.4 (0.2-2.0) % Neut # (Auto) 10.9 H (1.4-6.5) 10^3/uL Lymph # (Auto) 1.4 (1.2-3.8) 10^3/uL [place] # (Auto) 0.9 H (0.3-0.8) 10^3/uL Eos # (Auto) 0.2 (0.0-0.7) 10^3/uL Baso # (Auto) 0.1 (0.0-0.1) 10^3/uL Abs Immat Gran (auto) 0.04 H (0.00-0.03) 10^3/uL Imm/Tot Granulo (auto) 0.3 (0.0-0.5) % Sodium 134 L (136-145) mmol/L Potassium 3.7 (3.5-5.1) mmol/L Chloride 97 L (98-107) mmol/L Carbon Dioxide 29.7 (21.0-32.0) mmol/L Anion Gap 11.0 BUN 6.0 L (7.0-18.0) mg/dL Creatinine 1.03 H (0.55-1.02) mg/dL Est GFR ( Amer) >60 (>=60) Est GFR (Non-Af Amer) >60 (>=60) BUN/Creatinine Ratio 5.8 Glucose 369 H (74-106) mg/dL Lactate 3.6 H* 1.3 (0.4-2.0) mmol/L Calcium 9.9 (8.5-10.1) mg/dL Total Bilirubin 0.6 (0.2-1.0) mg/dL AST 6 L (15-37) U/L ALT 13 L (14-59) U/L Alkaline Phosphatase 143 H (46-116) U/L Total Protein 7.8 (6.4-8.2) g/dL Albumin 3.5 (3.4-5.0) g/dL Globulin 4.3 g/dL Albumin/Globulin Ratio 0.8 Lipase 25.0 (16.0-77.0) U/L Urine Color Lt. yellow (YELLOW) Urine Clarity Clear (CLEAR) Urine pH 6.0 (5.0-9.0) Ur Specific [place] <=1.005 A (1.005-1.025) Urine Protein Trace (NEG/TRACE) mg/dL Urine Glucose (UA) >=1000 A (NEGATIVE) mg/dL Urine Ketones Negative (NEGATIVE) mg/dL Urine Occult Blood Moderate A (NEGATIVE) Urine Nitrite Negative (NEGATIVE) Urine Bilirubin Negative (NEGATIVE) Urine Urobilinogen 0.2 (0.2-1.0) EU/dL Ur Leukocyte Esterase Small A (NEGATIVE) Urine RBC 2-5 A (0-2) #/HPF Urine WBC 50-75 A (NONE SEEN) #/HPF Ur Squamous Epith Cells Few A (NONE/RARE) #/LPF Ur Transition Epith Cell Rare A (NONE SEEN) #/LPF Urine Crystals None seen (None Seen) #/HPF Urine Bacteria Small A (NONE SEEN) #/HPF Urine Casts None seen (NONE SEEN) #/LPF Urine Mucus None seen (NONE SEEN) Urine Yeast Seen A (NONE SEEN) Ur Culture Indicated? Yes Urine HCG, Qual Negative (NEGATIVE) Imaging Data CT scan - abdomen: Attestation: I have reviewed the pertinent imaging results. Radiologist's impression: ITS Impressions Abdomen/Pelvis CT 10/31/23 18:16 IMPRESSION: 1. Possible cystitis and bilateral ascending urinary tract infection, correlate clinically. 2. Hepatomegaly. Electronically authenticated by: MARY BETANCUR Date: 10/31/2023 18:46 Discharge Plan Discharge Chief Complaint: Back Pain/Injury Clinical Impression: Pyelonephritis, Candidiasis, Acute flank pain Patient Disposition: Home, Self-Care Time of Disposition Decision: 20:03 Condition: Good Prescriptions / Home Meds: New hydrocodone-acetaminophen 5-325 mg tablet 1 tab PO Q6H PRN (Reason: pain) 3 Days Qty: 12 0RF Rx Instructions: M54.5 cephalexin 500 mg capsule 500 mg PO Q8H 10 Days Qty: 30 0RF magnesium citrate [Citrate of Magnesia] Solution 296 ml PO DAILY Qty: 296 0RF Rx Instructions: Take half of the bottle with 8 oz of water, take the other half after 1 hour with 8 oz of water ondansetron 4 mg tablet,disintegrating 4 mg PO Q6H PRN (Reason: nausea and vomiting) Qty: 12 0RF fluconazole 150 mg tablet 150 mg PO ONCE 1 Days Qty: 1 0RF Rx Instructions: to be taken at the end of the course of antibiotics No Action [id number] 1 mg tablet PO aspirin 81 mg capsule 81 mg PO DAILY insulin lispro 100 unit/mL insulin pen 22 unit subcut QAM insulin lispro 100 unit/mL insulin pen 26 unit subcut DAILY insulin lispro 100 unit/mL insulin pen 32 unit subcut QPM Patient Comments: newly added med insulin glargine [Lantus U-100 Insulin] 100 unit/mL solution 22 unit subcut QAM insulin glargine [Lantus U-100 Insulin] 100 unit/mL solution 20 unit subcut QPM Print Language: Maori Instructions: Kidney Infection (ED), Yeast Infection (ED) Additional Instructions: Please take all of your antibiotics and recheck with your doctor's office within the next week Referrals: [facility] [Primary Care Provider] - 1 week
[2023-10-31] MEDS: 0.9 % SODIUM CHLORIDE 1,000 ML 1000 ML IV (17:32)
[2023-10-31 17:40] LABS: Basophils Absolute Auto 0.1 10^3/uL (0.0-0.1); Basophils Percent Auto 0.4 % (0.2-2.0); Eosinophils Absolute Auto 0.2 10^3/uL (0.0-0.7); Eosinophils Percent Auto 1.3 % (0.9-7.0); Hematocrit 39.2 % (36.0-48.0); Hemoglobin 14.2 g/dL (12.0-16.0); Immature Granulocytes Abs Auto 0.04 10^3/uL (0.00-0.03); Immature Granulocytes Pct Auto 0.3 % (0.0-0.5); Lymphocytes Absolute Auto 1.4 10^3/uL (1.2-3.8); Lymphocytes Percent Auto 10.6 % (20.5-60.0); Mean Corpuscular HGB Conc 36.2 g/dL (29.9-35.2); Mean Corpuscular Hemoglobin 27.2 pg (26.7-34.0); Mean Corpuscular Volume 75.1 fL (81.0-99.0); Mean Platelet Volume 11.9 fL (9.5-13.5); Monocytes Absolute Auto 0.9 10^3/uL (0.3-0.8); Monocytes Percent Auto 6.5 % (1.7-12.0); Neutrophils Absolute Auto 10.9 10^3/uL (1.4-6.5); Neutrophils Percent Auto 80.9 % (43.0-75.0); Platelet Count 284 10^3/uL (150-450); Red Blood Count 5.22 10^6/uL (4.20-5.40); Red Cell Distribution Width 13.9 % (11.0-15.0); White Blood Count 13.4 10^3/uL (4.0-11.0)
[2023-10-31 17:43] LABS: Bilirubin Urine NEGATIVE (NEGATIVE); Blood Urine MODERATE (NEGATIVE); Clarity Urine CLEAR (CLEAR); Color Urine LT. YELLOW (YELLOW); Glucose Urine UA >=1000 mg/dL (NEGATIVE); Ketones Urine NEGATIVE (NEGATIVE); Leukocyte Esterase Urine SMALL (NEGATIVE); Nitrite Urine NEGATIVE (NEGATIVE); Protein Urine TRACE mg/dL (NEG/TRACE); Specific Gravity Urine <=1.005 (1.005-1.025); Urobilinogen Urine 0.2 EU/dL (0.2-1.0)
[2023-10-31 17:44] LABS: Urine Microscopic Indicated YES
[2023-10-31 17:47] LABS: HCG Qualitative Urine* NEGATIVE (NEGATIVE); Internal Control Within Normal Limits
[2023-10-31 17:54] LABS: WBC Urine 50-75 #/HPF (NONE SEEN)
[2023-10-31 17:57] LABS: Bacteria Urine SMALL #/HPF (NONE SEEN); Mucus Urine NONE SEEN (NONE SEEN); Squamous Epithelial Cell Urine FEW #/LPF (NONE/RARE)
[2023-10-31 17:58] LABS: Cast Seen? NONE SEEN #/LPF (NONE SEEN); Crystals Seen? None Seen #/HPF (None Seen); Transitional Epi Cells Urine RARE #/LPF (NONE SEEN); Urine Culture Indicated YES
[2023-10-31 18:10] LABS: Alanine Aminotransferase 13 U/L (14-59); Albumin Globulin Ratio 0.8; Albumin Level 3.5 g/dL (3.4-5.0); Alkaline Phosphatase 143 U/L (46-116); Aspartate Amino Transferase 6 U/L (15-37); BUN Creatinine Ratio 5.8; Bilirubin Total 0.6 mg/dL (0.2-1.0); Calcium 9.9 mg/dL (8.5-10.1); Carbon Dioxide 29.7 mmol/L (21.0-32.0); Chloride 97 mmol/L (98-107); Estimated GFR (African America >60 (>=60); Estimated GFR (Non-African Ame >60 (>=60); Globulin 4.3 g/dL; Glucose 369 mg/dL (74-106); Potassium 3.7 mmol/L (3.5-5.1); Sodium 134 mmol/L (136-145); Total Protein 7.8 g/dL (6.4-8.2)
--- NOTE | 2023-10-31 18:16 | CT_ITS ---
The [address] [address] Patient Name: JAYY NGUYEN MRN: [id number] date: 2000 Sex: F Assigned Patient Location: ER Current Patient Location: ER Accession/Order Number: [id number] Exam Date: 10/31/2023 18:06 Report Date: 10/31/2023 18:46 At the request of: TWYLA GAYTAN Procedure: CT abdomen pelvis w con EXAM: CT scan of the abdomen and pelvis using 100 mL of IV iodinated contrast. Dose reduction technique used: Automated exposure control and/or adjustment of the mA and/or kV according to patient size and/or use of iterative reconstruction technique. REASON FOR EXAM: Abdominal pain, constipation COMPARISON: None FINDINGS: Suggestion of urothelial hyperenhancement along the ureters bilaterally. Bladder wall thickening. Small amount of free fluid in the pelvis. Hepatomegaly measuring up to 22.8 cm. Small fat-containing umbilical hernia. Normal appendix. No free fluid in the abdomen or pelvis. No free intraperitoneal air. No dilated or thickened loops of small bowel or colon. No hydronephrosis or obstructing renal or ureteral calculi. Liver, pancreas, spleen, bilateral kidneys, and bilateral adrenal glands are otherwise unremarkable. No lymphadenopathy in the abdomen or pelvis. Remainder unremarkable. CT/CT abdomen pelvis w con IMPRESSION: 1. Possible cystitis and bilateral ascending urinary tract infection, correlate clinically. 2. Hepatomegaly. Electronically authenticated by: MARY BETANCUR Date: 10/31/2023 18:46
[2023-10-31] MEDS: HYOSCYAMINE SULFATE 0.125 MG TAB.SUBL SL (18:20)
[2023-10-31] MEDS: ONDANSETRON PF 4 MG/2 ML VIAL IV (18:20)
[2023-10-31] MEDS: KETOROLAC TROMETHAMINE 30 MG/ML VIAL IVP (18:21)
[2023-10-31 18:22] LABS: Lactate/Lactic Acid 3.6 mmol/L (0.4-2.0)
[2023-10-31] MEDS: CEFTRIAXONE 2,000 MG in 0.9 % SODIUM CHLORIDE 100 ML 200 MG IV (18:51)
[2023-10-31] MEDS: FLUCONAZOLE 150 MG TABLET PO (19:26)
[2023-10-31 19:50] LABS: Lactate/Lactic Acid 1.3 mmol/L (0.4-2.0)
[2023-10-31] MEDS: HYDROCODONE/ACET 5-325 MG TABLET 2 TAB PO (20:29)
== END 2023-10-31 20:40 | disposition home or self-care (01) ==
PROVIDERS: Physician Assistant; Emergency Provider Emergency Medicine
DX: B37.49 Other urogenital candidiasis (principal); R10.9 Unspecified abdominal pain; E11.9 Type 2 diabetes mellitus without complications; Z79.4 Long term (current) use of insulin; F17.200 Nicotine dependence, unspecified, uncomplicated
CPT/HCPCS: 36415; 74177; 80053; 81001; 83605; 83690; 84703; 85025; 87086; 96365; 96375; 99285; J0696; J1885; J2405; Q9967

== ENCOUNTER 2023-11-04 07:02 | Inpatient (IN) | payer BC, OTHER, SELFPAY ==
[2023-11-04] VITALS (37 sets, daily range): BP systolic 105–140; BP diastolic 73–86; PULSE 80–120; TEMP 36.4–36.8; O2SAT 98–100; BMI 29.2; BMI 28.0
--- NOTE | 2023-11-04 07:33 | ED_ITS ---
HPI HPI - General Adult General Chief complaint: Nausea/Vomiting/Diarrhea Stated complaint: symptoms of uti Time Seen by Provider: 11/04/23 07:06 Source: patient Mode of arrival: walk-in Limitations: no limitations History of Present Illness HPI narrative: 23-year-old female presented to the emergency department for nausea and vomiting. She was here few days ago and diagnosed with UTI and placed on Keflex. She is not sure but she thinks the medicine might be making her sick. No fever or back pain. Related Data Home Medications ?Medication ?Instructions ?Recorded ?Confirmed aspirin 81 mg capsule 81 mg PO DAILY 01/23/23 01/31/23 insulin glargine 100 unit/mL 20 unit subcut QPM 01/23/23 01/31/23 subcutaneous solution (Lantus U-100 Insulin) insulin glargine 100 unit/mL 22 unit subcut QAM 01/23/23 01/31/23 subcutaneous solution (Lantus U-100 Insulin) insulin lispro 100 unit/mL 22 unit subcut QAM 01/23/23 01/31/23 subcutaneous pen insulin lispro 100 unit/mL 26 unit subcut DAILY 01/23/23 01/31/23 subcutaneous pen insulin lispro 100 unit/mL 32 unit subcut QPM 01/23/23 01/31/23 subcutaneous pen [id number] 1 mg tab PO 01/23/23 tablet Previous Rx's ?Medication ?Instructions ?Recorded cephalexin 500 mg capsule 500 mg PO Q8H 10 days #30 caps 10/31/23 fluconazole 150 mg tablet 150 mg PO ONCE 1 day #1 tab 10/31/23 hydrocodone 5 mg-acetaminophen 325 1 tab PO Q6H PRN pain 3 days #12 10/31/23 mg tablet tabs magnesium citrate (Citrate of 296 ml PO DAILY constipation #296 10/31/23 Magnesia oral) mL ondansetron 4 mg disintegrating 4 mg PO Q6H PRN nausea and 10/31/23 tablet vomiting #12 tabs Allergies Allergy/AdvReac Type Severity Reaction Status Date / Time No Known Drug Allergies Allergy Verified 11/04/23 07:23 Opioid HPI Opioid Management Most Recent Opioid Data: No Data to Display Review of Systems ROS Narrative A ten point review of systems is negative except as noted above. PFS PFS Medical History (Updated 11/04/23 @ 10:20 by Chris Gonzalez MD) H/O urinary tract infection ?Z87.440 - Personal history of urinary (tract) infections (ICD-10) Social History Smoking status: Current every day smoker Little interest or pleasure in doing things: not at all Feeling down, depressed, or hopeless: not at all Exam Narrative Exam Narrative: Nurses note and vital signs reviewed and patient is not hypoxic. General: The patient appears in no apparent distress. She seems to prefer to keep her eyes closed Skin: Warm, dry, no pallor noted. There is no rash noted. Head: Normocephalic, atraumatic Eye: Normal conjunctiva, no drainage Ears, Nose, Mouth, and Throat: oral mucosa is moist. Nares patent. Cardiovascular: Regular Rate and Rhythm Respiratory: Patient is in no distress, no accessory muscle use, lungs are clear to auscultation, no wheezing, rales or rhonchi Back: non-tender, no CVA tenderness bilaterally to percussion. GI: Soft and nontender Musculoskeletal: The patient has no evidence of calf tenderness, no pitting edema, symmetrical pulses noted bilaterally Neurological: Awake and alert Psychiatric: Cooperative Constitutional Vital Signs, click to edit/add: Last Vital Signs Temp 97.6 F 11/04/23 07:24 Pulse 104 H 11/04/23 09:58 Resp 25 H 11/04/23 09:58 BP 128/75 11/04/23 09:58 Pulse Ox 100 11/04/23 09:58 O2 Del Method Room Air 11/04/23 09:58 Course Vital Signs Vital signs: Vital Signs Temperature 97.6 F 11/04/23 07:24 Pulse Rate 103 H 11/04/23 07:24 Respiratory Rate 20 11/04/23 07:24 Blood Pressure 129/83 11/04/23 07:24 Pulse Oximetry 100 11/04/23 07:24 Oxygen Delivery Method Room Air 11/04/23 07:24 Temperature 97.6 F 11/04/23 07:24 Pulse Rate 104 H 11/04/23 09:58 Respiratory Rate 25 H 11/04/23 09:58 Blood Pressure 128/75 11/04/23 09:58 Pulse Oximetry 100 11/04/23 09:58 Oxygen Delivery Method Room Air 11/04/23 09:58 Medical Decision Making MDM Narrative Medical decision making narrative: The patient is to have DKA. Blood sugar is 940 2 AM VBG pH is 7.09. She was given 2 L of IV fluid and 10 units of regular insulin. She will be admitted to the ICU and findings are discussed with the patient. Differential Diagnosis Differential Diagnosis: DKA, UTI, dehydration, acute kidney injury Lab Data Lab results reviewed: Yes I reviewed the patient's lab results Labs: Lab Results 11/04/23 11/04/23 11/04/23 Range/Units 07:38 08:22 09:12 WBC 16.8 H (4.0-11.0) 10^3/uL RBC 6.14 H (4.20-5.40) 10^6/uL Hgb 16.6 H (12.0-16.0) g/dL Hct 49.0 H (36.0-48.0) % MCV 79.8 L (81.0-99.0) fL MCH 27.0 (26.7-34.0) pg MCHC 33.9 (29.9-35.2) g/dL RDW 13.9 (11.0-15.0) % Plt Count 421 (150-450) 10^3/uL MPV 12.0 (9.5-13.5) fL Neut % (Auto) 91.8 H (43.0-75.0) % Lymph % (Auto) 4.9 L (20.5-60.0) % [place] % (Auto) 1.5 L (1.7-12.0) % Eos % (Auto) 0.0 L (0.9-7.0) % Baso % (Auto) 0.6 (0.2-2.0) % Neut # (Auto) 15.4 H (1.4-6.5) 10^3/uL Lymph # (Auto) 0.8 L (1.2-3.8) 10^3/uL [place] # (Auto) 0.3 (0.3-0.8) 10^3/uL Eos # (Auto) 0.0 (0.0-0.7) 10^3/uL Baso # (Auto) 0.1 (0.0-0.1) 10^3/uL Abs Immat Gran (auto) 0.20 H (0.00-0.03) 10^3/uL Imm/Tot Granulo (auto) 1.2 H (0.0-0.5) % VBG pH 7.094 L (7.330-7.430) VBG pCO2 29.6 L (40.0-52.0) mmHg Sodium 134 L (136-145) mmol/L Potassium 5.3 H (3.5-5.1) mmol/L Chloride 89 L (98-107) mmol/L Carbon Dioxide 8.3 L (21.0-32.0) mmol/L Anion Gap 42.0 BUN 24.0 H (7.0-18.0) mg/dL Creatinine 2.08 H (0.55-1.02) mg/dL Est GFR ( Amer) 36 L (>=60) Est GFR (Non-Af Amer) 30 L (>=60) BUN/Creatinine Ratio 11.5 Glucose 942 H* (74-106) mg/dL Calcium 11.0 H (8.5-10.1) mg/dL Urine Color Lt. yellow (YELLOW) Urine Clarity Clear (CLEAR) Urine pH 5.5 (5.0-9.0) Ur Specific [place] 1.025 (1.005-1.025) Urine Protein Negative (NEG/TRACE) mg/dL Urine Glucose (UA) >=1000 A (NEGATIVE) mg/dL Urine Ketones >=80 A (NEGATIVE) mg/dL Urine Occult Blood Trace-i (NEGATIVE) Urine Nitrite Negative (NEGATIVE) Urine Bilirubin Small A (NEGATIVE) Urine Urobilinogen 0.2 (0.2-1.0) EU/dL Ur Leukocyte Esterase Negative (NEGATIVE) Urine RBC None seen (0-2) #/HPF Urine WBC 2-5 A (NONE SEEN) #/HPF Ur Squamous Epith Cells Rare (NONE/RARE) #/LPF Urine Crystals None seen (None Seen) #/HPF Urine Bacteria Trace A (NONE SEEN) #/HPF Urine Casts None seen (NONE SEEN) #/LPF Urine Mucus None seen (NONE SEEN) Urine Yeast Seen A (NONE SEEN) Ur Culture Indicated? Yes Urine HCG, Qual Negative (NEGATIVE) Acetone, Qual Large A (NEGATIVE) Imaging Data Chest x-ray: Radiologist's impression: ITS Impressions Chest X-Ray 11/04/23 09:01 IMPRESSION: 1. No acute cardiopulmonary process. Electronically authenticated by: TEMITOPE HERNANDEZ Date: 11/04/2023 09:43 ECG Data Attestation: I personally reviewed and interpreted this ECG as follows: (EKG on my interpretation shows sinus tachycardia with a rate of 100) Critical Care Time Critical Care Time Critical Care Time: Yes Total Critical Care Time: 35 Attestation: Due to the high probability of sudden and clinically significant deterioration in the patient's condition he/she required the highest level of my preparedness to intervene urgently I provided critical care time including documentation time, medication orders and management, reevaluation, vital sign assessment, ordering and reviewing of lab tests, ordering and reviewing of x-ray studies, and admission orders. Aggregate critical care time is 35 minutes including only time during which I was engaged in work directly related to his/her care and did not include time spent treating other patients simultaneously. Discharge Plan Discharge Chief Complaint: Nausea/Vomiting/Diarrhea Clinical Impression: DKA (diabetic ketoacidosis) Patient Disposition: Admitted As Inpatient Time of Disposition Decision: 10:20 Condition: Fair Mode of Transportation: Private Vehicle Prescriptions / Home Meds: No Action [id number] 1 mg tablet PO aspirin 81 mg capsule 81 mg PO DAILY insulin lispro 100 unit/mL insulin pen 22 unit subcut QAM insulin lispro 100 unit/mL insulin pen 26 unit subcut DAILY insulin lispro 100 unit/mL insulin pen 32 unit subcut QPM Patient Comments: newly added med insulin glargine [Lantus U-100 Insulin] 100 unit/mL solution 22 unit subcut QAM insulin glargine [Lantus U-100 Insulin] 100 unit/mL solution 20 unit subcut QPM hydrocodone-acetaminophen 5-325 mg tablet 1 tab PO Q6H PRN (Reason: pain) 3 Days Qty: 12 0RF Rx Instructions: M54.5 cephalexin 500 mg capsule 500 mg PO Q8H 10 Days Qty: 30 0RF magnesium citrate [Citrate of Magnesia] Solution 296 ml PO DAILY Qty: 296 0RF Rx Instructions: Take half of the bottle with 8 oz of water, take the other half after 1 hour with 8 oz of water ondansetron 4 mg tablet,disintegrating 4 mg PO Q6H PRN (Reason: nausea and vomiting) Qty: 12 0RF fluconazole 150 mg tablet 150 mg PO ONCE 1 Days Qty: 1 0RF Rx Instructions: to be taken at the end of the course of antibiotics Print Language: Kiswahili Referrals: [facility] [Primary Care Provider] - 1 week
[2023-11-04 07:53] LABS: Bilirubin Urine SMALL (NEGATIVE); Blood Urine TRACE-I (NEGATIVE); Clarity Urine CLEAR (CLEAR); Color Urine LT. YELLOW (YELLOW); Glucose Urine UA >=1000 mg/dL (NEGATIVE); Ketones Urine >=80 mg/dL (NEGATIVE); Leukocyte Esterase Urine NEGATIVE (NEGATIVE); Nitrite Urine NEGATIVE (NEGATIVE); Protein Urine NEGATIVE (NEG/TRACE); Specific Gravity Urine 1.025 (1.005-1.025); Urobilinogen Urine 0.2 EU/dL (0.2-1.0); pH Urine 5.5 (5.0-9.0)
[2023-11-04 07:58] LABS: HCG Qualitative Urine* NEGATIVE (NEGATIVE); Internal Control Within Normal Limits
--- OUTSIDE RECORDS SUMMARY | 2023-11-04 08:01 | XMS_ITS | CCD ---
Author Organization [facility] Inform ion [facility] Care Team Providers Care Heading Pinner Name Role Phone DR TAMI ALVAREZ Admitting Unavailable ANTONIO, DR GARRETT Attending Unavailable [facility], DR FIELD Primary Care Unavailable ANTONIO, DR GARRETT Consulting Unavailable None, Physician Primary Care Provider MD Derek Baum Admit Provider MD Derek Baum Attending Provider [phone] AMANDA Buck Other Provider Unavailab MD Good Sterling Other Provider None Primary Care Unavailable Good Calderon Consulting Unavailable Derek Baum Admitting Unavailable Derek Baum Attending Unavailable Tee Buck Consulting Unavailable Services, Primary Care Provider Unavailable Primary Care Provider Unavailricha e LINDA ALDRIDGE Attending Unavailable SANDRA BHATIA Attending Unavailable LINDA ALDRIDGE Attending Unavailable SANDRA BHATIA Attending Unavailable SANDRA BHATIA Attending Unavailable FELI NGUYEN Referring Unavailable SERVICES, [facility] Care Unava ilable SERVICE, JOBST Referring Unavailable SERVICES, [facility] Primary Care Unava ilable QUINTON ARITA Attending Unavailable LINDA ALDRIDGE Referring Unavailable SERVICES, [facility] Primary Care Unava ilable SOPHIE HUDSON Admitting Unavailable SOPHIE HUDSON Attending Unavailable SERVICES, [facility] Care Unava ilable CHARO DANIELLE Consulting Unavailable SERVICE, JOBST Referring Unavailable SERVICES, [facility] Care Unava ilable RO TABARES Attending Unavailable RO TABARES Referring Unavailable SERVICES, [facility] Unava ilable LINDA ALDRIDGE Referring Unavailable SERVICES, [facility] Unava ilable TREVA NGUYEN Attending Unavailable LINDA ALDRIDGE Referring Unavailable SERVICES, [facility] Unava ilable MAT, YESSY JENNINGS Admitting Unavail able MAT, YESSY JENNINGS Attending Unavail able SERVICES, [facility] Unava ilable CODI LEE Consulting Unavailable LOOS, LASHAE S Attending Unavailable SERVICES, [facility] Unava ilable RO TABARES Referring Unavailable SERVICES, [facility] Unava ilable FELI NGUYEN Attending Unavailable SERVICES, [facility] Unava ilable FELI NGUYEN Attending Unavailable SERVICES, [facility] Unava ilable SERVICES, [facility] Unava ilable PRIYA BRITT Attending Unavailable PRIYA BRITT Attending Unavailable PRIYA BRITT Referring Unavailable SERVICES, [facility] Unava ilable Medications Current Medications Medication Drug [...] Active blood-glucose meter (ONETOUCH VERIO REFLECT METER) [facility] (14 sources) Start: 08-30-2022 blood-glucose meter (ONETOUCH [...] Indications: Type 1 diabetes mellitus with hyperglycemia ([facility]) Use as directed in insulin pump [...] diabetes mellitus with hypoglycemia and without coma ([facility]) Take 1 tablet (10 mg total) [...] capsule 0 02/20/2023 03/20/2023 Discontinued PNV 19-IRON PS,SOZD-XWUDM-KOT ORAL (5 sources) End: 03-20-2023 take 1 tablet by mouth once daily PNV 19-IRON PS,QXRZ-DTCZL-XPS ORAL Take 1 tablet by mouth Daily at 0700. 0 03/20/2023 Discontinued take 1 tablet by mouth once jenny y PNV 19-IRON PS,HHQT-COMAL-FZG ORAL Take 1 tablet by mouth Daily [...] Ehsan Johnson MD on 08/21/2023 7:28 AM [facility] XR WRIST RT MIN 3 VWSon 08-05 [...] Johnson MD on 08/21/2023 7:27 AM Normal [facility] POCT Hemoglobin A1con 2023 HbA1c (Bld) [Mass fraction] 6.8 g/dL 4 - 7 g/dL [facility] Glucose Glucometer (BldC) [M ass/Vol]on 02-20-2023 Glucose [Mass/Vol] 162 mg/dL High 65-99 [facility] Glucose [Mass/Vol] 133 mg/dL High 65-99 [facility] Glucose Glucometer (BldC) [M ass/Vol]on 02-19-2023 Glucose [Mass/Vol] 141 mg/dL High 65-99 [facility] Glucose [Mass/Vol] 164 mg/dL High 65-99 [facility] Glucose [Mass/Vol] 136 mg/dL High 65-99 [facility] Glucose [Mass/Vol] 131 mg/dL High 65-99 [facility] Glucose [Mass/Vol] 186 mg/dL High 65-99 [facility] Glucose [Mass/Vol] 265 mg/dL High 65-99 [facility] Glucose Glucometer (BldC) [M ass/Vol]on 02-18-2023 Glucose [Mass/Vol] 93 mg/dL Normal 65-99 [facility] Glucose [Mass/Vol] 88 mg/dL Normal 65-99 [facility] Glucose [Mass/Vol] 133 mg/dL High 65-99 [facility] Glucose [Mass/Vol] 76 mg/dL Normal 65-99 [facility] Glucose [Mass/Vol] 49 mg/dL Critically low 65-99 [facility] Glucose [Mass/Vol] 48 mg/dL Critically low 65-99 [facility] CBC AND AUTO DIFFon 02-17-19 24 ABSOLUTE BASOPHIL 0.2 X10E9/L Normal 0.0-0.2 [facility] Comment on above: Performed By: #### C BCA ####[facility] ([id number])[address], [address] [place] [address] ABSOLUTE NEUTROPHIL 13.3 X10E9/L High 1.5-6.6 [facility] Comment on above: Performed By: #### C BCA ####[facility] ([id number])[address], [address] [address] Basophils/100 WBC (Bld) 1.0 % Normal [facility] Comment on above: Performed By: #### C BCA ####[facility] ([id number])[address] [address] [address] Eosinophils (Bld) [#/Vol] 0.1 10*3/uL Normal 0.0-0.4 [facility] Comment on above: Performed By: #### C BCA ####[facility] ([id number])[address] [address], [place] [address] Eosinophils/100 WBC (Bld) 0.4 % Normal [facility] Comment on above: Performed By: #### C BCA ####[facility] ([id number])[address] [address] [address] Erythrocyte distribution width (RBC) [Ratio] 13.4 % Normal 11.5-15.0 [facility] Comment on above: Performed By: #### C BCA ####[facility] ([id number])[address] [address] [place] [address] Hematocrit (Bld) [Volume fraction] 29.1 % Low 35-47 [facility] Comment on above: Performed By: #### C BCA ####[facility] ([id number])[address], [address], [place] [address] Hemoglobin (Bld) [Mass/Vol] 10.1 g/dL Low 11.7-15.5 [facility] Comment on above: Performed By: #### C BCA ####[facility] ([id number])[address], [address], [place] [address] Lymphocytes (Bld) [#/Vol] 2.0 10*3/uL Normal 1.0-3.5 [facility] Comment on above: Performed By: #### C BCA ####[facility] ([id number])[address] [address] [place] [address] Lymphocytes/100 WBC (Bld) 12.4 % Normal [facility] Comment on above: Performed By: #### C BCA ####[facility] ([id number])[address] [address] [place] [address] MCH (RBC) [Entitic mass] 27.6 pg Normal 27-34 [facility] Comment on above: Performed By: #### C BCA ####[facility] ([id number])[address] [address] [place] [address] MCHC (RBC) [Mass/Vol] 34.8 g/dL Normal 32-36 [facility] Comment on above: Performed By: #### C BCA ####[facility] ([id number])[address] [address] [place] [address] MCV (RBC) [Entitic vol] 79 fL Low 80-100 P [facility] Comment on above: Performed By: #### C BCA ####[facility] ([id number])[address] [address] [place] [address] Monocytes (Bld) [#/Vol] 0.9 10*3/uL Normal 0-0.9 [facility] Comment on above: Performed By: #### C BCA ####[facility] ([id number])[address], [address], [place] [address] Monocytes/100 WBC (Bld) 5.6 % Normal P [facility] Comment on above: Performed By: #### C BCA ####[facility] ([id number])[address], [address], [place] [address] Neutrophils/100 WBC (Bld) 80.6 % Normal [facility] Comment on above: Performed By: #### C BCA ####[facility] ([id number])[address], [address], [place] [address] Platelet mean volume (Bld) [Entitic vol] 9.5 fL Normal 7-12 [facility] Comment on above: Performed By: #### C BCA ####[facility] ([id number])[address] [address], [place] [address] Platelets (Bld) [#/Vol] 224 10*3/uL Normal 150-450 [facility] Comment on above: Performed By: #### C BCA ####[facility] ([id number])[address], [address], [place] [address] RBC COUNT 3.67 X10E12/L Low 3.80-5.20 [facility] Comment on above: Performed By: #### C BCA ####[facility] ([id number])[address] [address], [place] [address] WBC (Bld) [#/Vol] 16.5 10*3/uL High 4.0-11.0 [facility] Comment on above: Performed By: #### C BCA ####[facility] ([id number])[address], [address], [place] [address] Glucose Glucometer (BldC) [M ass/Vol]on 02-17-2023 Glucose [Mass/Vol] 201 mg/dL High 65-99 [facility] Glucose [Mass/Vol] 147 mg/dL High 65-99 [facility] Glucose [Mass/Vol] 166 mg/dL High 65-99 [facility] Glucose [Mass/Vol] 115 mg/dL High 65-99 [facility] Glucose [Mass/Vol] 158 mg/dL High 65-99 [facility] CHLAMYDIA/GC PCR, Uon 2023 CHLAMYDIA/GC PCR, [...] are dependent on adequate specimen collection. Normal [facility] Comment on above: Performed By: #### Makenzie ####[facility] ([id number])[address] [address] COMPLETE BLOOD COUNTon 02-16 Erythrocyte distribution width (RBC) [Ratio] 13.7 % Normal 11.5-15.0 [facility] Comment on above: Performed By: #### Makenzie PARADA, 49313-5 ####[facility] ([id number])[address] [address] Hematocrit (Bld) [Volume fraction] 33.5 % Low 35-47 [facility] Comment on above: Performed By: #### Makenzie PARADA, 78948-5 ####[facility] ([id number])[address] [address] Hemoglobin (Bld) [Mass/Vol] 11.9 g/dL Normal 11.7-15.5 [facility] Comment on above: Performed By: #### Makenzie PARADA, 72417-1 ####[facility] ([id number])[address] [address] MCH (RBC) [Entitic mass] 27.4 pg Normal 27-34 [facility] Comment on above: Performed By: #### Makenzie PARADA, 34001-7 ####[facility] ([id number])[address] [address] MCHC (RBC) [Mass/Vol] 35.5 g/dL Normal 32-36 [facility] Comment on above: Performed By: #### Makenzie PARADA, 68273-2 ####[facility] ([id number])[address] [address] [address] MCV (RBC) [Entitic vol] 77 fL Low 80-100 P [facility] Comment on above: Performed By: #### Makenzie PARADA, 25446-8 ####[facility] ([id number])[address] [address] [address] Platelet mean volume (Bld) [Entitic vol] 9.4 fL Normal 7-12 [facility] Comment on above: Performed By: #### Makenzie PARADA, 87411-4 ####[facility] ([id number])[address] [address] [place] [address] Platelets (Bld) [#/Vol] 237 10*3/uL Normal 150-450 [facility] Comment on above: Performed By: #### Makenzie PARADA, 16265-2 ####[facility] ([id number])[address] [address] [place] [address] RBC COUNT 4.35 X10E12/L Normal 3.80-5.20 [facility] Comment on above: Performed By: #### Makenzie PARADA, 91957-7 ####[facility] ([id number])[address] [address] [address] WBC (Bld) [#/Vol] 18.3 10*3/uL High 4.0-11.0 [facility] Comment on above: Performed By: #### C , 25421-4 ####[facility] ([id number])[address], [address] [place] [address] DRUG SCREEN, URINEon 024 AMPHETAMINE/METHAMP Negative Normal NEG [facility] Comment on above: Result Comment: AMPH /METH screening cut off = 1000 ng/mL Performed By: #### D CARREON ####[facility] ([id number])[address], [address] [place] [address] BARBITURATES Negative Normal NEG [facility] Comment on above: Result Comment: Lorena iturates screening cut off value = 200 ng/mL Performed By: #### D CARREON ####[facility] ([id number])[address], [address] [place] [address] BENZODIAZEPINES Negative Normal NEG [facility] Comment on above: Result Comment: See odiazepines screening cut off value = 200 ng/mL Performed By: #### D CARREON ####[facility] ([id number])[address], [address] [place] [address] CANNABINOIDS Negative Normal NEG [facility] Comment on above: Result Comment: Sandra abinoids/THC screening cut off value = 50 ng/mL Performed By: #### D CARREON ####[facility] ([id number])[address], [address] [place] [address] COCAINE METABOLITE Negative Normal NEG [facility] Comment on above: Result Comment: Coca ine screening cut off value = 300 ng/mL Performed By: #### D CARREON ####[facility] ([id number])[address], [address] [place] [address] ECSTASY Negative Normal NEG [facility] Comment on above: Result Comment: Ecst asy screening cut off value = 500 ng/mL This report is intended for use in clinical monitoring or management of patients. Performed By: #### D CARREON ####[facility] ([id number])[address], [address] [place] [address] METHADONE Negative Normal NEG [facility] Comment on above: Result Comment: Meth adone screening cut off value = 300 ng/mL. Performed By: #### D CARREON ####[facility] ([id number])[address], [address] [place] [address] OPIATES Negative Normal NEG [facility] Comment on above: Result Comment: Opia shelly screening cut off value = 300 ng/mL NOTE: This test is used for the detection of codeine, hydrocodone (>1000 ng/mL), morphine and hydromorphone (>900 ng/mL) in urine. Performed By: #### D CARREON ####[facility] ([id number])[address] [facility] [address] [place] [address] OXYCODONE Negative Normal NEG [facility] Comment on above: Result Comment: Oxyc odone screening cut off value = 300 ng/mL NOTE: This test is used for the detection of oxycodone and oxymorphone in urine. Performed By: #### D CARREON ####[facility] ([id number])[address], [address] [place] [address] PHENCYCLIDINE Negative Normal NEG [facility] Comment on above: Result Comment: Phen cyclidine screening cut off value = 25 ng/mL Performed By: #### D CARREON ####[facility] ([id number])[address], [address] [place] [address] Glucose Glucometer (BldC) [M ass/Vol]on 02-16-2023 Glucose [Mass/Vol] 221 mg/dL High 65-99 [facility] T. pallidum IgG+IgM IA Ql (S )on 02-16-2023 Syphilis Total 0.2 AI Normal 0.0-0.8 [facility] Comment on above: Result Comment: NON REACTIVE No serologic evidence of infection to Treponema pallidum (syphilis). Repeat testing may be considered in patients with suspected acute or primary syphilis in 2 to 4 weeks. Performed By: #### C , 25826-3 ####[facility] ([id number])[address] [place] [address], [address] [place] [address] Glucose Glucometer (BldC) [M ass/Vol]on 02-10-2023 Glucose [Mass/Vol] 89 mg/dL Normal 65-99 [facility] Glucose [Mass/Vol] 107 mg/dL High 65-99 [facility] Glucose [Mass/Vol] 70 mg/dL Normal 65-99 [facility] Glucose [Mass/Vol] 85 mg/dL Normal 65-99 [facility] Glucose [Mass/Vol] 59 mg/dL Low 65-99 [facility] Glucose [Mass/Vol] 42 mg/dL Critically low 65-99 [facility] Glucose [Mass/Vol] 131 mg/dL High 65-99 [facility] Glucose Glucometer (BldC) [M ass/Vol]on 02-09-2023 Glucose [Mass/Vol] 206 mg/dL High 65-99 [facility] Glucose [Mass/Vol] 117 mg/dL High 65-99 [facility] Glucose [Mass/Vol] 113 mg/dL High 65-99 [facility] Glucose Glucometer (BldC) [M ass/Vol]on 02-08-2023 Glucose [Mass/Vol] 134 mg/dL High 65-99 [facility] Glucose [Mass/Vol] 162 mg/dL High 65-99 [facility] Glucose [Mass/Vol] 152 mg/dL High 65-99 [facility] Glucose [Mass/Vol] 73 mg/dL Normal 65-99 [facility] Glucose Glucometer (BldC) [M ass/Vol]on 02-07-2023 Glucose [Mass/Vol] 156 mg/dL High 65-99 [facility] Glucose [Mass/Vol] 118 mg/dL High 65-99 [facility] Glucose [Mass/Vol] 145 mg/dL High 65-99 [facility] Glucose [Mass/Vol] 119 mg/dL High 65-99 [facility] Glucose [Mass/Vol] 54 mg/dL Low 65-99 [facility] Glucose [Mass/Vol] 50 mg/dL Critically low 65-99 Pr [facility] STREP B SCREEN CULTUREon S. agalactiae Org specific cx Ql (Vag+Rectum) CULTURE RESULTS NEGATIVE FOR GROUP B STREPTOCOCCUS BY NUCLEIC ACID AMPLIFICATION Normal [facility] Comment on above: Performed By: #### C BCA, 6873-4, CMP #### [facility] ([id number]) [address], [address] [place] [address] Glucose Glucometer (BldC) [M ass/Vol]on 02-06-2023 Glucose [Mass/Vol] 86 mg/dL Normal 65-99 [facility] Glucose [Mass/Vol] 116 mg/dL High 65-99 [facility] Glucose [Mass/Vol] 137 mg/dL High 65-99 [facility] Glucose [Mass/Vol] 220 mg/dL High 65-99 [facility] Glucose [Mass/Vol] 94 mg/dL Normal 65-99 [facility] Glucose [Mass/Vol] 47 mg/dL Critically low 65-99 [facility] Glucose [Mass/Vol] 39 mg/dL Critically low 65-99 [facility] Glucose Glucometer (BldC) [M ass/Vol]on 02-05-2023 Glucose [Mass/Vol] 155 mg/dL High 65-99 [facility] Glucose [Mass/Vol] 103 mg/dL High 65-99 [facility] Glucose [Mass/Vol] 84 mg/dL Normal 65-99 [facility] Glucose [Mass/Vol] 92 mg/dL Normal 65-99 [facility] Glucose [Mass/Vol] 61 mg/dL Low 65-99 [facility] Glucose [Mass/Vol] 50 mg/dL Critically low 65-[address] [facility] Glucose Glucometer (BldC) [M ass/Vol]on 12-31-2023 Glucose [Mass/Vol] 103 mg/dL High 65-99 [facility] Glucose [Mass/Vol] 125 mg/dL High 65-99 [facility] Glucose [Mass/Vol] 112 mg/dL High 65-99 [facility] Glucose [Mass/Vol] 91 mg/dL Normal 65-99 [facility] Glucose [Mass/Vol] 71 mg/dL Normal 65-99 [facility] Glucose Glucometer (BldC) [M ass/Vol]on 02-03-2023 Glucose [Mass/Vol] 159 mg/dL High 65-99 [facility] Glucose [Mass/Vol] 115 mg/dL High 65-99 [facility] Glucose [Mass/Vol] 105 mg/dL High 65-99 [facility] Glucose Glucometer (BldC) [M ass/Vol]on 02-02-2023 Glucose [Mass/Vol] 140 mg/dL High 65-99 [facility] Glucose [Mass/Vol] 125 mg/dL High 65-99 [facility] Glucose [Mass/Vol] 135 mg/dL High 65-99 [facility] Glucose [Mass/Vol] 107 mg/dL High 65-99 [facility] Glucose [Mass/Vol] 145 mg/dL High 65-99 [facility] Glucose [Mass/Vol] 188 mg/dL High 65-99 [facility] POTASSIUMon 02-02-2023 Potassium [Moles/Vol] 4.0 mmol/L Normal 3.5-5.0 [facility] Comment on above: Performed By: #### 2 823-3 ####[facility] ([id number])[address], [address] [place] [address] Potassium [Moles/Vol] 3.6 mmol/L Normal 3.5-5.0 [facility] Comment on above: Performed By: #### 2 823-3 #### [facility] ([id number]) [address], [address] [place] [address] [place] [address] Beta hydroxybutyrate [Moles/ Vol]on 02-01-2023 BetaHydroxybutyrate 0.80 mmol/L High 0.02-0.27 [facility] Comment on above: Performed By: #### Makenzie STEIN, 6873-4, CMP #### [facility] ([id number]) [address], [address] [place] [address] CBC AND AUTO DIFFon 02-02-20 ABSOLUTE BASOPHIL 0.0 X10E9/L Normal 0.0-0.2 [facility] Comment on above: Performed By: #### Makenzie STEIN, 6873-4, CMP #### [facility] ([id number]) [address], [facility] [address] [place] [address] ABSOLUTE NEUTROPHIL 11.4 X10E9/L High 1.5-6.6 [facility] Comment on above: Performed By: #### Makenzie STEIN 6873-4, CMP #### [facility] ([id number]) [address] [place] [address] Basophils/100 WBC (Bld) 0.2 % Normal [facility] Comment on above: Performed By: #### Makenzie STEIN, 6873-4, CMP #### [facility] ([id number]) [address] [place] [address] Eosinophils (Bld) [#/Vol] 0.1 10*3/uL Normal 0.0-0.4 [facility] Comment on above: Performed By: #### Makenzie STEIN 6873-4, CMP #### [facility] [facility] ([id number]) [address], [address] [place] [address] Eosinophils/100 WBC (Bld) 0.4 % Normal [facility] Comment on above: Performed By: #### Makenzie STEIN, 6873-4, CMP #### [facility] ([id number]) [address], [address] [place] [address] Erythrocyte distribution width (RBC) [Ratio] 13.5 % Normal 11.5-15.0 [facility] Comment on above: Performed By: #### Makenzie STEIN 6873-4, CMP #### [facility] ([id number]) [address] [address] [place] [address] Hematocrit (Bld) [Volume fraction] 33.0 % Low 35-47 [facility] Comment on above: Performed By: #### Makenzie STEIN 6873-4, CMP #### [facility] ([id number]) [address], [facility] [address] [place] [address] Hemoglobin (Bld) [Mass/Vol] 11.5 g/dL Low 11.7-15.5 [facility] Comment on above: Performed By: #### Makenzie STEIN 6873-4, CMP #### [facility] ([id number]) [address] [address] [place] [address] Lymphocytes (Bld) [#/Vol] 1.2 10*3/uL Normal 1.0-3.5 [facility] Comment on above: Performed By: #### Makenzie STEIN 6873-4, CMP #### [facility] ([id number]) [address] [address] [place] [address] Lymphocytes/100 WBC (Bld) 8.7 % Normal [facility] Comment on above: Performed By: #### Makenzie STEIN 6873-4, CMP #### [facility] ([id number]) [address], [facility] [address] [place] [address] MCH (RBC) [Entitic mass] 27.6 pg Normal 27-34 [facility] Comment on above: Performed By: #### Makenzie STEIN 6873-4, CMP #### [facility] ([id number]) [address], [facility] [address] [place] [address] MCHC (RBC) [Mass/Vol] 34.8 g/dL Normal 32-36 [facility] Comment on above: Performed By: #### Makenzie STEIN 6873-4, CMP #### [facility] ([id number]) [address], [address] [place] [address] MCV (RBC) [Entitic vol] 79 fL Low 80-100 P [facility] Comment on above: Performed By: #### Makenzie STEIN 6873-4, CMP #### [facility] ([id number]) [address], [address] [place] [address] Monocytes (Bld) [#/Vol] 0.6 10*3/uL Normal 0-0.9 [facility] Comment on above: Performed By: #### Makenzie STEIN 6873-4, CMP #### [facility] ([id number]) [address] [place] [address] Monocytes/100 WBC (Bld) 4.5 % Normal [facility] Comment on above: Performed By: #### Maeknzie STEIN 6873-4, CMP #### [facility] ([id number]) [address], [address] [place] [address] Neutrophils/100 WBC (Bld) 86.2 % Normal [facility] Comment on above: Performed By: #### Makenzie STEIN 6873-4, CMP #### [facility] ([id number]) [address], [address] [place] [address] Platelet mean volume (Bld) [Entitic vol] 9.4 fL Normal 7-12 [facility] Comment on above: Performed By: #### Makenzie STEIN 6873-4, CMP #### [facility] ([id number]) [address], [address] [place] [address] Platelets (Bld) [#/Vol] 211 10*3/uL Normal 150-450 [facility] Comment on above: Performed By: #### Makenzie STEIN, 6873-4, CMP #### [facility] ([id number]) [address], [address] [place] [address] RBC COUNT 4.16 X10E12/L Normal 3.80-5.20 [facility] Comment on above: Performed By: #### Makenzie STEIN 6873-4, CMP #### [facility] ([id number]) [address], [address] [place] [address] WBC (Bld) [#/Vol] 13.2 10*3/uL High 4.0-11.0 [facility] Comment on above: Performed By: #### Makenzie STEIN, 6873-4, CMP #### [facility] ([id number]) [address] [place] [address] [facility] 02-01-2023 Albumin [Mass/Vol] 3.3 g/dL Normal 3.2-5.3 [facility] Comment on above: Performed By: #### Makenzie STEIN 6873-4, CMP #### [facility] ([id number]) [address], [address] [place] [address] ALP [Catalytic activity/Vol] 127 U/L Normal 39-130 [facility] Comment on above: Performed By: #### Makenzie STEIN 6873-4, CMP #### [facility] ([id number]) [address], [address] [place] [address] ALT [Catalytic activity/Vol] 13 U/L Normal 0-31 [facility] Comment on above: Performed By: #### Makenzie STEIN 6873-4, CMP #### [facility] ([id number]) [address], [address] [place] [address] Anion gap [Moles/Vol] 9 mmol/L Normal 5-15 [facility] Comment on above: Performed By: #### Makenzie STEIN 6873-4, CMP #### [facility] ([id number]) [address], [address] [place] [address] AST [Catalytic activity/Vol] 19 U/L Normal 0-41 [facility] Comment on above: Performed By: #### C SARITA, 6873-4, CMP #### [facility] ([id number]) [address], [address] [place] [address] Bilirubin [Mass/Vol] 0.7 mg/dL Normal 0.3-1.2 [facility] Comment on above: Performed By: #### Makenzie STEIN 6873-4, CMP #### [facility] ([id number]) [address], [address] [place] [address] Calcium [Mass/Vol] 8.1 mg/dL Low 8.5-10.5 [facility] Comment on above: Performed By: #### Makenzie STEIN 6873-4, CMP #### [facility] ([id number]) [address], [address] [place] [address] Chloride [Moles/Vol] 103 mmol/L Normal 98-109 [facility] Comment on above: Performed By: #### Makenzie STEIN, 6873-4, CMP #### [facility] ([id number]) [address], [address] [place] [address] CO2 [Moles/Vol] 22 mmol/L Normal 22-32 [facility] Comment on above: Performed By: #### Makenzie STEIN, 6873-4, CMP #### [facility] ([id number]) [address], [address] [place] [address] Creatinine [Mass/Vol] 0.58 mg/dL Normal 0.40-1.00 [facility] Comment on above: Result Comment: METH OD TRACEABLE TO IDMS STANDARD Performed By: #### Makenzie STEIN, 6873-4, CMP #### [facility] ([id number]) [address] [address] [place] [address] eGFR (CKD-EPI) NON-RACE DEPENDENT >90 Normal >59 [facility] Comment on above: Result Comment: Reported eGFR is based on the CKD-EPI 2020 equation that does not use a race coefficient. Performed By: #### C SARITA, 6873-4, CMP #### [facility] ([id number]) [address] [address] [place] [address] Glucose [Mass/Vol] 158 mg/dL High 65-99 [facility] Comment on above: Performed By: #### Makenzie STEIN, 6873-4, CMP #### [facility] ([id number]) [address] [address] Potassium [Moles/Vol] 3.3 mmol/L Low 3.5-5.0 [facility] Comment on above: Performed By: #### Makenzie STEIN, 6873-4, CMP #### [facility] ([id number]) [address] [address] Protein [Mass/Vol] 6.2 g/dL Normal 6.0-8.0 [facility] Comment on above: Performed By: #### Makenzie STEIN, 6873-4, CMP #### [facility] ([id number]) [address] [address] Sodium [Moles/Vol] 134 mmol/L Normal 134-146 [facility] Comment on above: Performed By: #### C BCA, 6873-4, CMP #### [facility] ([id number]) [address] [address] Urea nitrogen [Mass/Vol] 9 mg/dL Normal 5-23 [facility] Comment on above: Performed By: #### Makenzie BCA, 6873-4, CMP #### [facility] ([id number]) [address] [place] [place] [address] Glucose Glucometer (BldC) [M ass/Vol]on 02-01-2023 Glucose [Mass/Vol] 153 mg/dL High 65-99 [facility] URINALYSISon 02-01-2023 Bilirubin Ql (U) Negative Normal NEG [facility] BLOOD/HGB Negative Normal NEG [facility] Color (U) YELLOW Normal YELLOW [facility] Glucose Ql (U) 1000 mg/dL Abnormal NEG [facility] Ketones Ql (U) 150 mg/dL Abnormal NEG [facility] Leukocyte esterase Test strip Ql (U) Negative Normal NEG [facility] Comment on above: Result Comment: HIGH CONCENTRATIONS OF GLUCOSE MAY DECREASE THE REACTIVITY OF THE DIPSTICK LEUKOCYTE TEST PAD. MUCOUS PRESENT Abnormal NONE [facility] Nitrite Ql (U) Negative Normal NEG [facility] pH (U) 6.0 [pH] Normal 5.0-8.5 [facility] Protein Ql (U) 30 mg/dL Abnormal NEG [facility] R.B.CELLS 1 /hpf Normal 0-5 [facility] Specific gravity (U) [Rel density] 1.030 Normal 1.003-1.035 [facility] SQUAMOUS EPITHELIUM 2 /hpf Normal 0-5 [facility] TURBIDITY CLEAR Normal CLEAR [facility] Urobilinogen (U) [Mass/Vol] mg/dL Normal <1.1 [facility] W.B.CELLS 4 /hpf Normal 0-5 [facility] Albumin [Mass/volume] in Ser um or Plasmaon 02-01-2022 Albumin [Mass/Vol] 3.5 g/dL 3.5-5.0 [facility] Work Phone: Basic Metabolic,Non-Fastingo n 02-01-2022 Anion gap [Moles/Vol] 7 mmol/L Normal 4-12 [facility] Comment on above: Performed By: #### L 400.6532, L400.2200, L400.4680 #### Main Laboratory ([facility]) [address] [place] [address] Bjorn Washington MD Calcium [Mass/Vol] 8.20 mg/dL Low 8.8-10.5 [facility] Comment on above: Performed By: #### L 400.0202, L400.2200, L400.4800 #### Main Laboratory ([facility]) [address] [place] [address] Bjorn Washington MD Chloride [Moles/Vol] 103 mmol/L Normal 101-111 [facility] Comment on above: Performed By: #### L 400.0202, L400.2200, L400.4800 #### Main Laboratory ([facility]) [address] [place] [id number] Bjorn Washington MD CO2 [Moles/Vol] 23 mmol/L Invalid Interpretation Code 21-32 [facility] Comment on above: Result Comment: Delt a: 17 on 02/01/22 Performed By: #### L 400.0202, L400.2200, L400.4800 #### Main Laboratory ([facility]) [address] [place] [address] Bjorn Washington MD Creatinine [Mass/Vol] 0.56 mg/dL Low 0.60-1.30 [facility] Comment on above: Performed By: #### L 400.0202, L400.2200, L400.4800 #### Main Laboratory ([facility]) [address] [place] [id number] Bjorn Washington MD GFR Calculation > 60 Normal [facility] Comment on above: Result Comment: Workers Compensation Claims Analyst mau Kidney Disease stages by NKDF Stage eGFR I >90 II 60-89 III 30-59 IV 15-29 V <15 or dialysis AGE(years) AVERAGE GFR 20-29 116 ml/min/1.73 square meters Note:This result is normalized to 1.73 square meter body surface area. Height and weight are not factored. Performed By: #### L 400.0202, L400.2200, L400.4800 #### Main Laboratory ([facility]) [address] [place] [address] Bjorn Washington MD Glucose [Mass/Vol] 224 mg/dL High 70-110 [facility] Comment on above: Performed By: #### L 400.0202, L400.2200, L400.4800 #### Main Laboratory ([facility]) [address] [place] [address] Bjorn Washington MD Potassium [Moles/Vol] 4.0 mmol/L Normal 3.6-5.0 [facility] Comment on above: Performed By: #### L 400.0202, L400.2200, L400.4800 #### Main Laboratory ([facility]) [address] [place] [address] Bjorn Washington MD Sodium [Moles/Vol] 133 mmol/L Low 135-145 [facility] Comment on above: Performed By: #### L 400.0202, L400.2200, L400.4800 #### Main Laboratory ([facility]) [address] [place] [address] Bjorn Washington MD Urea nitrogen [Mass/Vol] 3 mg/dL Low 7-20 [facility] Comment on above: Performed By: #### L 400.0202, L400.2200, L400.4800 #### Main Laboratory ([facility]) [address] [place] [address] Bjorn Washington MD Basophils Auto (Bld) [#/Vol] on 02-01-2022 Basophils (Bld) [#/Vol] 0 /cmm 0-200 L [facility] Work Phone: Basophils/100 WBC Auto (Bld) on 02-01-2022 Basophils/100 WBC (Bld) 0.4 % 0-2 L [facility] Work Phone: Blood anion gapon 02-01-2022 Anion gap (Bld) [Moles/Vol] 7 mmol/L 4-12 [facility] Work Phone: Blood coagulation panelon Blood coagulation panel 100 /cmm 0-500 L [facility] Work Phone: Blood hematocrit (volume fra ction)on 02-01-2022 Hematocrit (Bld) [Volume fraction] 35.9 % 35.0-44.0 [facility] Work Phone: Blood hemoglobin measurement (mass/volume)on 02-01-2022 Hemoglobin (Bld) [Mass/Vol] 13.0 g/dL 12.0-15.0 [facility] Work Phone: CBC with Differentialon 01-06 Abs Baso Count 0 /cmm Normal 0-200 [facility] Comment on above: Performed By: #### L 400.0202, L400.2200, L400.4800 #### Main Laboratory ([facility]) [address] [place] [address] Bjorn Washington MD Abs Eos Count 100 /cmm Normal 0-500 [facility] Comment on above: Performed By: #### L 400.0202, L400.2200, L400.4800 #### Main Laboratory ([facility]) [address] [place] [address] Bjorn Washington MD Abs Lymph Count 2100 /cmm Normal [phone] [facility] Comment on above: Performed By: #### L 400.0202, L400.2200, L400.4800 #### Main Laboratory ([facility]) [address] [place] [address] Bjorn Washington MD Abs [place] Count 600 /cmm Normal 0-800 [facility] Comment on above: Performed By: #### L 400.0202, L400.2200, L400.4800 #### Main Laboratory ([facility]) [address] [place], [facility] Bjorn Washington MD Abs Neut Count 8100 /cmm High 4331-4028 [facility] Comment on above: Performed By: #### L 400.0202, L400.2200, L400.4800 #### Main Laboratory ([facility]) [address] [place], [facility] Bjorn Washington MD Basophils/100 WBC (Bld) 0.4 % Normal 0-2 L [facility] Comment on above: Performed By: #### L 400.0202, L400.2200, L400.4800 #### Main Laboratory ([facility]) [address] [place], [facility] Bjorn Washington MD EOS-Auto Diff 0.6 % Normal 0-6 [facility] Comment on above: Performed By: #### L 400.0202, L400.2200, L400.4800 #### Main Laboratory ([facility]) [address] [place] [id number] Bjorn Washington MD Erythrocyte distribution width (RBC) [Ratio] 14.2 % Normal 12.0-16.0 [facility] Comment on above: Performed By: #### L 400.0202, L400.2200, L400.4800 #### Main Laboratory ([facility]) [address] [place], [facility] Bjorn Washington MD Hematocrit (Bld) [Volume fraction] 35.9 % Normal 35.0-44.0 [facility] Comment on above: Performed By: #### L 400.0202, L400.2200, L400.4800 #### Main Laboratory ([facility]) [address] [place] [address] Bjorn Washington MD Hemoglobin (Bld) [Mass/Vol] 13.0 g/dL Normal 12.0-15.0 [facility] Comment on above: Performed By: #### L 400.0202, L400.2200, L400.4800 #### Main Laboratory ([facility]) [address] [place] [address] Bjorn Washington MD Lymphocytes/100 WBC (Bld) 19.2 % Invalid Interpretation Code 15-45 [facility] Comment on above: Result Comment: Delt a: 6.1 on 01/31/22 Performed By: #### L 400.0202, L400.2200, L400.4800 #### Main Laboratory ([facility]) [address] [place] [address] Bjorn Washington MD MCH (RBC) [Entitic mass] 27.5 pg Normal 27.5-33.0 [facility] Comment on above: Performed By: #### L 400.0202, L400.2200, L400.4800 #### Main Laboratory ([facility]) [address] [place] [address] Bjorn Washington MD MCHC (RBC) [Mass/Vol] 35.7 g/dL Normal 33.0-36.0 [facility] Comment on above: Performed By: #### L 400.0202, L400.2200, L400.4800 #### Main Laboratory ([facility]) [address] [place] [address] Bjorn Washington MD MCV 77.0 CU ANDREW Low 80-97 [facility] Comment on above: Performed By: #### L 400.0202, L400.2200, L400.4800 #### Main Laboratory ([facility]) [address] [place] [id number] Bjorn Washington MD [place]- Auto Diff 5.6 % Normal 2-10 [facility] Comment on above: Performed By: #### L 400.0202, L400.2200, L400.4800 #### Main Laboratory ([facility]) [address] [place] [address] Bjorn Washington MD Neut-Auto Diff 74.2 % High 40-70 [facility] Comment on above: Performed By: #### L 400.0202, L400.2200, L400.4800 #### Main Laboratory ([facility]) [address] [place] [address] Bjorn Washington MD NRBC-Auto 0.1 /100 WBC Normal <1 [facility] Comment on above: Performed By: #### L 400.0202, L400.2200, L400.4800 #### Main Laboratory ([facility]) [address] [place] [address] Bjorn Washington MD Platelet Count 249 th/cmm Normal 150-400 [facility] Comment on above: Performed By: #### L 400.0202, L400.2200, L400.4800 #### Main Laboratory ([facility]) [address] [place] [address] Bjorn Washington MD RBC 4.66 mil/cmm Normal 4.00-5.10 [facility] Comment on above: Performed By: #### L 400.0202, L400.2200, L400.4800 #### Main Laboratory ([facility]) [address] [place] [address] Bjorn Washington MD WBC 10.9 th/cmm High 4.4-10.5 [facility] Comment on above: Performed By: #### L 400.0202, L400.2200, L400.4800 #### Main Laboratory ([facility]) [address] [place] [address] Bjorn Washington MD Case Management Admissionon 02-01-2022 Case Management Admission [facility] Case Management Patient: SAVI NGUYEN [address] : [address] [place] [address] Location: ICU [phone] [id number] Management Admission Nancy Huntley RN Service Date: 01/31/22 Case Mgmt Admission/Disch Plan - Patient Preferences AND Goals What is the patient's preference?: Services to be Determined Recommended acute discharge goals: Services to be Determined - Hospital Stay Day Day 1 Comment: 01/31/22 Pt is here for DKA/sepsis. Patient is type I diabetic. Pt has [employer] insurance. Awaiting ENT consulted for mouth abcess. Pt lives with her significant other and daughter. Pt is independent with ADLs and drives. Pt on Augmentin. Pt reports she has all supplies at home to manage DM including cont reader and insulin pump. Patient did not report a PCP but states she goes not [facility] in [place]. Contract Officer: Nancy Huntley, RN Day 2 Comment: 02/01/22 Pt drowsy and fallimng asleep during conversation with CM during CM rounding, patient denies any homegoing service/dme needs at this time including HHC. Contract Officer: Nancy Huntley, RN - Demographics Current Diagnosis(s): DKA. Sepsis Information Given by: Patient Primary Insurance: [employer] Secondary Insurance: [employer] Prescription Coverage: Yes Family/Caregiver Contact: Mi Nguyen Relationship: mother Does the patient have VA services?: No Does the patient have a [facility] provider?: No - Readmission Information Was the patient readmitted within the past 30 days?: No Where was the patient admitted from?: Home Does Patient have any Services in Place?: No - Healthcare Decisions Code Status Per Patient Request (Full Code, DNRCC, DNRCCA): Full Code Durable Power of Tool And Die Manager for Health Care: No Directive, No SS Referral [facility] DNR Comfort Care: No Directive, No SS Referral State [facility] DNR Comfort Care Arrest: No Directive, No SS Referral - Mental Status Prior Mental Status: Alert and Oriented Current Mental Status: Alert and Oriented - Living Situation Home Situation: Lives with Significant Other Home Type: Single Family Home Does the patient drive?: Yes - Support System Support System: Relatives, Friends - Skilled Days Has patient been in a long term facility in past 60 days: No Have [...] No If Yes to either question, notify Poultry Hanger.: No - Discharge Plan Discharge Plan Discussed [...] Entered by: Nancy Huntley RN on 01/31/22 2274 Report Signed by: Nancy Huntley RN on 02/01/22 1358 < > Co-Signed by: on Normal [facility] Case Management Daily Noteon 02-01-2022 Case Management Daily Note [facility] Case Management Patient: SAVI NGUYEN. : [address] [place], [place] [address] Location: ICU [phone] Unit #: [id number] Case Management Daily Note Nancy Huntley RN Service Date: 02/01/22 Case Mgmt Daily Note - Plan of Care Contract Officer Agrees with Attending and Consult Plan: Yes - Patient Preferences AND Goals What is the patient's preference?: Return Home, No Services Recommended acute discharge goals: Return Home, No Services - Hospital Stay Days Day 1 Comment: 01/31/22 Pt is here for DKA/sepsis. Patient is type I diabetic. Pt has [employer] insurance. Awaiting ENT consulted for mouth abcess. Pt lives with her significant other and daughter. Pt is independent with ADLs and drives. Pt on Augmentin. Pt reports she has all supplies at home to manage DM including cont reader and insulin pump. Patient did not report a PCP but states she goes not [facility] in [place]. Contract Officer: Nancy Huntley, RN Day 2 Comment: 02/01/22 Pt drowsy and fallimng asleep during conversation with CM during CM rounding, patient denies any homegoing service/dme needs at this time including HHC. Contract Officer: Nancy Huntley, RN - Transportation Mode of [...] 1409 < > Co-Signed by: on Normal [facility] Comprehensive Metabolic Pane leonila 02-01-2022 Albumin [Mass/Vol] 3.5 g/dL Normal 3.5-5.0 [facility] Comment on above: Performed By: #### L 702.1000 #### Main Laboratory ([facility]) [address] [place] [address] Bjorn Washington MD Albumin/Globulin [Mass ratio] 1.3 {ratio} Low 1.5-2.5 [facility] Comment on above: Performed By: #### L 702.1000 #### Main Laboratory ([facility]) [address] [place] [address] Bjorn Washington MD Alk Phos 74 IU/L Normal 39-118 [facility] Comment on above: Performed By: #### L 702.1000 #### Main Laboratory ([facility]) [address] [place] [address] Bjorn Washington MD ALT [Catalytic activity/Vol] 8 U/L Low 10-40 [facility] Comment on above: Performed By: #### L 702.1000 #### Main Laboratory ([facility]) [address] [place] [address] Bjorn Washington MD Anion gap [Moles/Vol] 11 mmol/L Normal 4-12 [facility] Comment on above: Performed By: #### L 702.1000 #### Main Laboratory ([facility]) [address] [place] [address] Bjorn Washington MD AST [Catalytic activity/Vol] 9 U/L Low 15-41 [facility] Comment on above: Performed By: #### L 702.1000 #### Main Laboratory ([facility]) [address] [place] [address] Bjorn Washington MD Bili,Total 0.7 mg/dL Normal 0.2-1.0 [facility] Comment on above: Performed By: #### L 702.1000 #### Main Laboratory ([facility]) [address] [place] [address] Bjorn Washington MD Calcium [Mass/Vol] 8.30 mg/dL Low 8.8-10.5 [facility] Comment on above: Performed By: #### L 702.1000 #### Main Laboratory ([facility]) [address] [place] [address] Bjorn Washington MD Chloride [Moles/Vol] 104 mmol/L Normal 101-111 [facility] Comment on above: Performed By: #### L 702.1000 #### Main Laboratory ([facility]) [address] [place] [address] Bjorn Washington MD CO2 [Moles/Vol] 17 mmol/L Low 21-32 [facility] Comment on above: Performed By: #### L 702.1000 #### Main Laboratory ([facility]) [address] [place] [address] Bjorn Washington MD Creatinine [Mass/Vol] 0.59 mg/dL Low 0.60-1.30 [facility] Comment on above: Performed By: #### L 702.1000 #### Main Laboratory ([facility]) [address] [place] [address] Bjorn Washington MD GFR Calculation > 60 Normal [facility] Comment on above: Result Comment: Workers Compensation Claims Analyst mau Kidney Disease stages by NKDF Stage eGFR I >90 II 60-89 III 30-59 IV 15-29 V <15 or dialysis AGE(years) AVERAGE GFR 20-29 116 ml/min/1.73 square meters Note:This result is normalized to 1.73 square meter body surface area. Height and weight are not factored. Performed By: #### L 702.1000 #### Main Laboratory ([facility]) [address] [place] [address] Bjorn Washington MD Glucose [Mass/Vol] 250 mg/dL High 70-110 [facility] Comment on above: Performed By: #### L 702.1000 #### Main Laboratory ([facility]) [address] [place] [facility] Bjorn Washington MD Potassium [Moles/Vol] 3.7 mmol/L Normal 3.6-5.0 [facility] Comment on above: Performed By: #### L 702.1000 #### Main Laboratory ([facility]) [address] [place] [address] Bjorn Washington MD Protein [Mass/Vol] 6.1 g/dL Low 6.2-8.0 [facility] Comment on above: Performed By: #### L 702.1000 #### Main Laboratory ([facility]) [address] [place] [address] Bjorn Washington MD Sodium [Moles/Vol] 132 mmol/L Low 135-145 [facility] Comment on above: Performed By: #### L 702.1000 #### Main Laboratory ([facility]) [address] [place] [address] Bjorn Washington MD Urea nitrogen [Mass/Vol] 5 mg/dL Low 7-20 [facility] Comment on above: Performed By: #### L 702.1000 #### Main Laboratory ([facility]) [address] [place] [address] Bjorn Washington MD Eosinophils/100 WBC Auto (Bl d)on 02-01-2022 Eosinophils/100 WBC (Bld) 0.6 % 0-6 [facility] Work Phone: Erythrocyte distribution wid th ratioon 02-01-2022 Erythrocyte distribution width (RBC) [Ratio] 14.2 % 12.0-16.0 [facility] Work Phone: Glucose (S/P/Bld) [Mass/Vol] on 02-01-2022 Glucose [Mass/Vol] 315 mg/dL High 70-110 [facility] Work Phone: Glycated Hemoglobinon 2021 Glycated Hemoglobin 9.8 % High 4.0-5.6 [facility] Comment on above: Result Comment: Hemo globin A1c values greater than or equal to 6.5 percent are diagnostic for diabetes mellitus. Diagnosis should be confirmed by repeat testing. In diabetic patients, HbA1c goals should be discussed with healthcare provider. Test Performed by: [address] [address] [employer]: T[place] M.D. Ph.D.; CLIA# [id number] Performed By: #### L 400.0202, L400.2200, L400.4800 #### Main Laboratory ([facility]) [address] [place] [address] Bjorn Washington MD Lymphocytes/100 WBC Auto (Bl d)on 02-01-2022 Lymphocytes/100 WBC (Bld) 19.2 % 15-45 [facility] Work Phone: Comment on above: Delta: 6.1 on -0530 MCH Auto (RBC) [Entitic mass ]on 02-01-2022 MCH (RBC) [Entitic mass] 27.5 pg 27.5-33.0 [facility] Work Phone: MCHC Auto (RBC) [Mass/Vol]on 02-01-2022 MCHC (RBC) [Mass/Vol] 35.7 g/dL 33.0-36.0 [facility] Work Phone: MCV Auto (RBC) [Entitic vol] on 02-01-2022 MCV (RBC) [Entitic vol] 77.0 CU ANDREW Low 80-97 [facility] Work Phone: Magnesiumon 02-01-2022 Magnesium [Mass/Vol] 1.9 mg/dL Normal 1.8-2.5 [facility] Comment on above: Performed By: #### L 400.0202, L400.2200, L400.7520 #### Main Laboratory ([facility]) [address] [place] [address] Bjorn Washington MD Magnesium [Mass/Vol] 1.5 mg/dL Low 1.8-2.5 [facility] Comment on above: Performed By: #### L 702.1000 #### Main Laboratory ([facility]) [address] [place] [address] Bjorn Washington MD Meter Glucoseon 02-01-2022 Glucose [Mass/Vol] 315 mg/dL High 70-110 [facility] Comment on above: Performed By: #### L 702.1000 #### Main Laboratory ([facility]) [address] [place] [address] Bjorn Washington MD Glucose [Mass/Vol] 201 mg/dL High 70-110 [facility] Comment on above: Performed By: #### L 702.1000 #### Main Laboratory ([facility]) [address] [place] [address] Bjorn Washington MD Glucose [Mass/Vol] 212 mg/dL High 70-110 [facility] Comment on above: Performed By: #### L 702.1000 #### Main Laboratory ([facility]) [address] [place] [address] Bjorn Washington MD Glucose [Mass/Vol] 253 mg/dL High 70-110 [facility] Comment on above: Performed By: #### L 400.0202, L400.2200, L400.4800 #### Main Laboratory ([facility]) [address] [place] [address] Bjorn Washington MD Glucose [Mass/Vol] 145 mg/dL High 70-110 [facility] Comment on above: Performed By: #### L 702.1000 #### Main Laboratory ([facility]) [address] [place] [address] Bjorn Washington MD Glucose [Mass/Vol] 128 mg/dL High 70-110 [facility] Comment on above: Performed By: #### L 702.1000 #### Main Laboratory ([facility]) [address] [place] [address] Bjorn Washington MD Glucose [Mass/Vol] 222 mg/dL High 70-110 [facility] Comment on above: Performed By: #### L 400.0202, L400.2200, L400.4800 #### Main Laboratory ([facility]) [address] [place] [address] Bjorn Washington MD Glucose [Mass/Vol] 107 mg/dL Normal 70-110 [facility] Comment on above: Performed By: #### L 400.0202, L400.2200, L400.4800 #### Main Laboratory ([facility]) [address] [place], [place] [address] Bjorn Washington MD Glucose [Mass/Vol] 245 mg/dL High 70-110 [facility] Comment on above: Performed By: #### L 400.0202, L400.2200, L400.4800 #### Main Laboratory ([facility]) [address] [place] [address] Bjorn Washington MD Monocytes Auto (Bld) [#/Vol] on 02-01-2022 Monocytes (Bld) [#/Vol] 600 /cmm 0-800 L [facility] Work Phone: Monocytes/100 WBC Auto (Bld) on 02-01-2022 Monocytes/100 WBC (Bld) 5.6 % 2-10 L [facility] Work Phone: Neutrophils/100 WBC Auto (Bl d)on 02-01-2022 Neutrophils/100 WBC (Bld) 74.2 % High 40-70 [facility] Work Phone: No Panel Informationon 02-01 Glomerular Filtration Rate Calc > 60 >60 [facility] Work Phone: Comment on above: AGE(years) AVERAGE G FR 20-29 116 ml/min/1.73 square metersNote:This result is normalized to 1.73 square meter body surface area. Height and weight are not factored.Chronic Kidney Disease stages by NKDFStage eGFR I >90 II 60-89 III 30-59 IV 15-29 V <15 or dialysis Absolute Lymphocytes (auto) 2100 /cmm [id number] [facility] Work Phone: Absolute Neutrophils (auto) 8100 /cmm High [phone] [facility] Work Phone: Nucleated RBC Auto (Bld) [#/ Vol]on 02-01-2022 Nucleated RBC (Bld) [#/Vol] 0.1 /100 WBC <1 [facility] Work Phone: Phosphoruson 02-01-2022 Phosphate [Mass/Vol] 2.3 mg/dL Low 2.4-4.7 [facility] Comment on above: Result Comment: Delt a: < 1.0 on 02/01/22 Performed By: #### L 702.1000 #### Main Laboratory ([facility]) [address] [place] [address] Bjorn Washington MD Phosphate [Mass/Vol] mg/dL Critically low 2.4-4.7 [facility] Comment on above: Result Comment: Crit ical Result S_PHOS:<1.0 Called to and read back by: AZAM PHILIPPE at: 02/01/2022 10:33:13 by:[email or web address] Performed By: #### L 400.0202, L400.2200, L400.4800 #### Main Laboratory ([facility]) [address] [place] [address] Bjorn Washington MD Phosphate [Mass/Vol] 1.0 mg/dL Critically low 2.4-4.7 [facility] Comment on above: Result Comment: Crit ical Result S_PHOS:1.0 Called to and read back by: AZAM PHILIPPE at: 02/01/2022 09:18:42 by:[email or web address] Performed By: #### L 702.1000 #### Main Laboratory ([facility]) [address] [place] [address] Bjorn Washington MD Platelets Auto (Bld) [#/Vol] on 02-01-2022 Platelets (Bld) [#/Vol] 249 th/cmm 150-400 L [facility] Work Phone: Progress Note - ENTon 2021 Progress Note - ENT [facility] Medical Records Patient: SAVI NGUYEN [address] : [address] [place], [place] [address] Location: ICU [phone] Unit #: [id number] Progress Note - ENT Good Calderon MD [...] < > Report Signed by: on Normal [facility] Progress Note Critical Careo n 02-01-2022 Progress Note Critical Care [facility] Medical Records Patient: SAVI NGUYEN [address] : [address] [place], [place] [address] Location: ICU [phone] Unit #: [id number] Progress Note Critical Care Tee Buck PA-C [...] (Phosphorus Replacement (more content not included)... Normal [facility] RBC Auto (Bld) [#/Vol]on RBC (Bld) [#/Vol] 4.66 mil/cmm 4.00-5.10 [facility] Work Phone: Serum or plasma alanine carpenter otransferase measurement (enzymatic activity/volume)on 02-01-2022 ALT [Catalytic activity/Vol] 8 U/L Low 10-40 [facility] Work Phone: [phone] Serum or plasma albumin/glob ulin mass ratioon 02-01-2022 Albumin/Globulin [Mass ratio] 1.3 {ratio} Low 1.5-2.5 [facility] Work Phone: Serum or plasma alkaline denice sphatase measurement (enzymatic activity/volume)on 02-01-2022 ALP [Catalytic activity/Vol] 74 U/L 39-118 [facility] Work Phone: Serum or plasma aspartate am inotransferase measurement (enzymatic activity/volume)on 02-01-2022 AST [Catalytic activity/Vol] 9 U/L Low 15-41 [facility] Work Phone: Serum or plasma calcium ruth ann urement (mass/volume)on 02-01-2022 Calcium [Mass/Vol] 8.20 mg/dL Low 8.8-10.5 [facility] Work Phone: [phone] Serum or plasma carbon dioxi de, total measurement (moles/volume)on 02-01-2022 CO2 [Moles/Vol] 23 mmol/L 21-32 [facility] Work Phone: Comment on above: Delta: 17 on Serum or plasma chloride desirae surement (moles/volume)on 02-01-2022 Chloride [Moles/Vol] 103 mmol/L 101-111 [facility] [employer] Work Phone: [phone] Serum or plasma creatinine m easurement (mass/volume)on 02-01-2022 Creatinine [Mass/Vol] 0.56 mg/dL Low 0.60-1.30 [facility] [employer] Work Phone: [phone] Serum or plasma glucose ruth ann urement (mass/volume)on 02-01-2022 Glucose [Mass/Vol] 224 mg/dL High 70-110 [facility] [employer] Work Phone: [phone] Serum or plasma magnesium me asurement (mass/volume)on 02-01-2022 Magnesium [Mass/Vol] 1.9 mg/dL 1.8-2.5 [facility] [employer] Work Phone: [phone] Serum or plasma phosphate me asurement (mass/volume)on 02-01-2022 Phosphate [Mass/Vol] 2.3 mg/dL Low 2.4-4.7 [facility] [employer] Work Phone: Comment on above: Delta: < 1.0 on 01/06 Serum or plasma potassium me asurement (moles/volume)on 02-01-2022 Potassium [Moles/Vol] 4.0 mmol/L 3.6-5.0 [facility] [employer] Work Phone: Serum or plasma protein ruth ann urement (mass/volume)on 02-01-2022 Protein [Mass/Vol] 6.1 g/dL Low 6.2-8.0 [facility] [employer] Work Phone: Serum or plasma sodium measu rement (moles/volume)on 02-01-2022 Sodium [Moles/Vol] 133 mmol/L Low 135-145 [facility] [employer] Work Phone: Serum or plasma total biliru bin measurement (mass/volume)on 02-01-2022 Bilirubin [Mass/Vol] 0.7 mg/dL [facility] Work Phone: [phone] Serum or plasma urea nitroge n measurement (mass/volume)on 02-01-2022 Urea nitrogen [Mass/Vol] 3 mg/dL Low 7-20 [facility] Work Phone: [phone] WBC Auto (Bld) [#/Vol]on WBC (Bld) [#/Vol] 10.9 th/cmm High 4.4-10.5 [facility] Work Phone: [phone] * Urine urinalysis yeast owen iants panel by computer assisted methodon 01-31-2022 Urinalysis yeast variants panel Computer assisted (U) Present High [facility] Work Phone: [phone] Automated bacteria count in urine sediment (number/area)on 01-31-2022 Bacteria Auto (Urine sed) [#/Area] Trace [facility] Work Phone: [phone] Automated blood hypochromia detectionon 01-31-2022 Hypochromia Auto Ql (Bld) 1+ [facility] Work Phone: [phone] Automated erythrocytes count in urine sediment (number/area)on 01-31-2022 RBC Auto (Urine sed) [#/Area] 0-2 /HPF [facility] Work Phone: [phone] Automated leukocytes count i n urine sediment (number/area)on 01-31-2022 WBC Auto (Urine sed) [#/Area] 0-5 /HPF [facility] Work Phone: [phone] Automated squamous epithelia l cells count in urine sediment (number/area)on 01-31-2022 Epithelial cells.squamous Auto (Urine sed) [#/Area] 11-20 /HPF High [facility] Work Phone: [phone] Basic Metabolic Panel,Fastin javi 01-31-2022 Anion gap [Moles/Vol] 8 mmol/L Normal 4-12 [facility] Comment on above: Performed By: #### L 400.0202, L400.2200, L400.4800 #### Main Laboratory ([facility]) [address] [place] [address] Bjorn Washington MD Calcium [Mass/Vol] 8.50 mg/dL Low 8.8-10.5 [facility] Comment on above: Performed By: #### L 400.0202, L400.2200, L400.4800 #### Main Laboratory ([facility]) [address] [place] [address] Bjorn Washington MD Chloride [Moles/Vol] 105 mmol/L Normal 101-111 [facility] Comment on above: Performed By: #### L 400.0202, L400.2200, L400.4800 #### Main Laboratory ([facility]) [address] [place] [address] Bjorn Washington MD CO2 [Moles/Vol] 19 mmol/L Low 21-32 [facility] Comment on above: Performed By: #### L 400.0202, L400.2200, L400.4800 #### Main Laboratory ([facility]) [address] [place] [address] Bjorn Washington MD Creatinine [Mass/Vol] 0.62 mg/dL Normal 0.60-1.30 [facility] Comment on above: Performed By: #### L 400.0202, L400.2200, L400.4800 #### Main Laboratory ([facility]) [address] [place] [address] Bjorn Washington MD GFR Calculation > 60 Normal [facility] Comment on above: Result Comment: Workers Compensation Claims Analyst mau Kidney Disease stages by NKDF Stage eGFR I >90 II 60-89 III 30-59 IV 15-29 V <15 or dialysis AGE(years) AVERAGE GFR 20-29 116 ml/min/1.73 square meters Note:This result is normalized to 1.73 square meter body surface area. Height and weight are not factored. Performed By: #### L 400.0202, L400.2200, L400.4800 #### Main Laboratory ([facility]) [address] [place] [address] Bjorn Washington MD Glucose [Mass/Vol] 216 mg/dL High 70-110 [facility] Comment on above: Performed By: #### L 400.0202, L400.2200, L400.4800 #### Main Laboratory ([facility]) [address] [place], [facility] Bjorn Washington MD Potassium [Moles/Vol] 3.4 mmol/L Low 3.6-5.0 [facility] Comment on above: Performed By: #### L 400.0202, L400.2200, L400.4800 #### Main Laboratory ([facility]) [address] [place] [address] Bjorn Washington MD Sodium [Moles/Vol] 132 mmol/L Low 135-145 [facility] Comment on above: Performed By: #### L 400.0202, L400.2200, L400.4800 #### Main Laboratory ([facility]) [address] [place] [address] Bjorn Washington MD Urea nitrogen [Mass/Vol] 7 mg/dL Normal 7-20 [facility] Comment on above: Performed By: #### L 400.0202, L400.2200, L400.4800 #### Main Laboratory ([facility]) [address] [place] [address] Bjorn Washington MD Anion gap [Moles/Vol] 8 mmol/L Normal 4-12 [facility] Comment on above: Performed By: #### L 702.1000 #### Main Laboratory ([facility]) [address] [place] [address] Bjorn Washington MD Calcium [Mass/Vol] 8.40 mg/dL Low 8.8-10.5 [facility] Comment on above: Performed By: #### L 702.1000 #### Main Laboratory ([facility]) [address] [place] [address] Bjorn Washington MD Chloride [Moles/Vol] 108 mmol/L Normal 101-111 [facility] Comment on above: Performed By: #### L 702.1000 #### Main Laboratory ([facility]) [address] [place] [address] Bjorn Washington MD CO2 [Moles/Vol] 19 mmol/L Low 21-32 [facility] Comment on above: Result Comment: Delt a: 12 on 01/31/22 Performed By: #### L 702.1000 #### Main Laboratory ([facility]) [address] [place] [address] Bjorn Washington MD Creatinine [Mass/Vol] 0.66 mg/dL Normal 0.60-1.30 [facility] Comment on above: Performed By: #### L 702.1000 #### Main Laboratory ([facility]) [address] [place] [address] Bjorn Washington MD GFR Calculation > 60 Normal [facility] Comment on above: Result Comment: Workers Compensation Claims Analyst mau Kidney Disease stages by NKDF Stage eGFR I >90 II 60-89 III 30-59 IV 15-29 V <15 or dialysis AGE(years) AVERAGE GFR 20-29 116 ml/min/1.73 square meters Note:This result is normalized to 1.73 square meter body surface area. Height and weight are not factored. Performed By: #### L 702.1000 #### Main Laboratory ([facility]) [address] [place] [address] Bjorn Washington MD Glucose [Mass/Vol] 179 mg/dL High 70-110 [facility] Comment on above: Performed By: #### L 702.1000 #### Main Laboratory ([facility]) [address] [place] [address] Bjorn Washington MD Potassium [Moles/Vol] 3.6 mmol/L Normal 3.6-5.0 [facility] Comment on above: Performed By: #### L 702.1000 #### Main Laboratory ([facility]) [address] [place] [address] Bjorn Washington MD Sodium [Moles/Vol] 135 mmol/L Normal 135-145 [facility] Comment on above: Performed By: #### L 702.1000 #### Main Laboratory ([facility]) [address] [place], [facility] Bjorn Washington MD Urea nitrogen [Mass/Vol] 8 mg/dL Normal 7-20 [facility] Comment on above: Performed By: #### L 702.1000 #### Main Laboratory ([facility]) [address] [place], [facility] Bjorn Washington MD Anion gap [Moles/Vol] 13 mmol/L High 4-12 [facility] Comment on above: Performed By: #### L 400.0202, L400.2200, L400.4800 #### Main Laboratory ([facility]) [address] [place], [facility] Bjorn Washington MD Calcium [Mass/Vol] 8.10 mg/dL Low 8.8-10.5 [facility] Comment on above: Performed By: #### L 400.0202, L400.2200, L400.4800 #### Main Laboratory ([facility]) [address] [place], [facility] Bjorn Washington MD Chloride [Moles/Vol] 112 mmol/L High 101-111 [facility] Comment on above: Performed By: #### L 400.0202, L400.2200, L400.4800 #### Main Laboratory ([facility]) [address] [place] [address] Bjorn Washington MD CO2 [Moles/Vol] 12 mmol/L Low 21-32 [facility] Comment on above: Performed By: #### L 400.0202, L400.2200, L400.480 #### Main Laboratory ([facility]) [address] [place] [address] Bjorn Washington MD Creatinine [Mass/Vol] 0.76 mg/dL Normal 0.60-1.30 [facility] Comment on above: Performed By: #### L 400.0202, L400.2200, L400.4800 #### Main Laboratory ([facility]) [address] [place] [address] Bjorn Washington MD GFR Calculation > 60 Normal [facility] Comment on above: Result Comment: Workers Compensation Claims Analyst mau Kidney Disease stages by NKDF Stage eGFR I >90 II 60-89 III 30-59 IV 15-29 V <15 or dialysis AGE(years) AVERAGE GFR 20-29 116 ml/min/1.73 square meters Note:This result is normalized to 1.73 square meter body surface area. Height and weight are not factored. Performed By: #### L 400.0202, L400.2199, L400.480 #### Main Laboratory ([facility]) [address] [place] [address] Bjorn Washington MD Glucose [Mass/Vol] 175 mg/dL High 70-110 [facility] Comment on above: Performed By: #### L 400.0202, L400.2200, L400.4800 #### Main Laboratory ([facility]) [address] [place] [address] Bjorn Washington MD Potassium [Moles/Vol] 4.5 mmol/L Normal 3.6-5.0 [facility] Comment on above: Performed By: #### L 400.0202, L400.2200, L400.4800 #### Main Laboratory ([facility]) [address] [place] [address] Bjorn Washington MD Sodium [Moles/Vol] 137 mmol/L Normal 135-145 [facility] Comment on above: Performed By: #### L 400.0202, L400.2200, L400.4800 #### Main Laboratory ([facility]) [address] [place] [address] Bjorn Washington MD Urea nitrogen [Mass/Vol] 11 mg/dL Normal 7-20 [facility] Comment on above: Performed By: #### L 400.0202, L400.2200, L400.4800 #### Main Laboratory ([facility]) [address] [place] [address] Bjorn Washington MD Anion gap [Moles/Vol] 17 mmol/L High 4-12 [facility] Comment on above: Performed By: #### L 702.1000 #### Main Laboratory ([facility]) [address] [place] [address] Bjorn Washington MD Calcium [Mass/Vol] 8.40 mg/dL Low 8.8-10.5 [facility] Comment on above: Performed By: #### L 702.1000 #### Main Laboratory ([facility]) [address] [place] [address] Bjorn Washington MD Chloride [Moles/Vol] 111 mmol/L Normal 101-111 [facility] Comment on above: Performed By: #### L 702.1000 #### Main Laboratory ([facility]) [address] [place] [address] Bjorn Washington MD CO2 [Moles/Vol] 10 mmol/L Low 21-32 [facility] Comment on above: Performed By: #### L 702.1000 #### Main Laboratory ([facility]) [address] [place] [address] Bjorn Washington MD Creatinine [Mass/Vol] 0.83 mg/dL Normal 0.60-1.30 [facility] Comment on above: Performed By: #### L 702.1000 #### Main Laboratory ([facility]) [address] [place] [address] Bjorn Washington MD GFR Calculation > 60 Normal [facility] Comment on above: Result Comment: Workers Compensation Claims Analyst mau Kidney Disease stages by NKDF Stage eGFR I >90 II 60-89 III 30-59 IV 15-29 V <15 or dialysis AGE(years) AVERAGE GFR 20-29 116 ml/min/1.73 square meters Note:This result is normalized to 1.73 square meter body surface area. Height and weight are not factored. Performed By: #### L 702.1000 #### Main Laboratory ([facility]) [address] [place] [address] Bjorn Washington MD Glucose [Mass/Vol] 212 mg/dL High 70-110 [facility] Comment on above: Performed By: #### L 702.1000 #### Main Laboratory ([facility]) [address] [place] [place] [address] Bjorn Washington MD Potassium [Moles/Vol] 4.2 mmol/L Normal 3.6-5.0 [facility] Comment on above: Performed By: #### L 702.1000 #### Main Laboratory ([facility]) [address] [place] [id number] Bjorn Washington MD Sodium [Moles/Vol] 138 mmol/L Normal 135-145 [facility] Comment on above: Performed By: #### L 702.1000 #### Main Laboratory ([facility]) [address] [place] [place] [address] Bjorn Washington MD Urea nitrogen [Mass/Vol] 12 mg/dL Normal 7-20 [facility] Comment on above: Performed By: #### L 702.1000 #### Main Laboratory ([facility]) [address] [place] [address] Bjorn Washington MD Bilirubin Auto test strip Ql (U)on 01-31-2022 Bilirubin Ql (U) Negative Negative [facility] Work Phone: Blood hemoglobin A1/total he moglobinon 01-31-2022 Hemoglobin A1 (Bld) [Mass fraction] 9.8 % High [facility] Work Phone: Comment on above: Hemoglobin A1c value s greater than or equal to 6.5 percentare diagnostic for diabetes mellitus. Diagnosis should beconfirmed by repeat testing. In diabetic patients, [id number] should be discussed with healthcare provider.Test Performed by:[address] [id number] Director: T[place] M.D. Ph.D.; CLIA# [id number] CBC with Differentialon 01-06 Abs Baso Count 100 /cmm Normal 0-200 [facility] Comment on above: Performed By: #### L 702.1000 #### Main Laboratory ([facility]) [address] [place] [address] Bjorn Washington MD Abs Eos Count 0 /cmm Normal 0-500 [facility] Comment on above: Performed By: #### L 702.1000 #### Main Laboratory ([facility]) [address] [place] [address] Bjorn Washington MD Abs Lymph Count 1600 /cmm Normal 6262-1860 [facility] Comment on above: Performed By: #### L 702.1000 #### Main Laboratory ([facility]) [address] [place] [address] Bjorn Washington MD Abs [place] Count 1600 /cmm High 0-800 [facility] Comment on above: Performed By: #### L 702.1000 #### Main Laboratory ([facility]) [address] [place] [address] Bjorn Washington MD Abs Neut Count 846[address] /cmm High 5803-4960 [facility] Comment on above: Performed By: #### L 702.1000 #### Main Laboratory ([facility]) [address] [place], [place] [address] Bjorn Washington MD Basophils/100 WBC (Bld) 0.4 % Normal 0-2 L [facility] Comment on above: Performed By: #### L 702.1000 #### Main Laboratory ([facility]) [address] [place], [place] [address] Bjorn Washington MD EOS-Auto Diff 0.1 % Normal 0-6 [facility] Comment on above: Performed By: #### L 702.1000 #### Main Laboratory ([facility]) [facility] [address] [place], [place] [address] Bjorn Washington MD Erythrocyte distribution width (RBC) [Ratio] 14.6 % Normal 12.0-16.0 [facility] Comment on above: Performed By: #### L 702.1000 #### Main Laboratory ([facility]) [address] [place], [place] [address] Bjorn Washington MD Hematocrit (Bld) [Volume fraction] 43.8 % Normal 35.0-44.0 [facility] Comment on above: Performed By: #### L 702.1000 #### Main Laboratory ([facility]) [address] [place], [place] [address] Bjorn Washington MD Hemoglobin (Bld) [Mass/Vol] 14.8 g/dL Normal 12.0-15.0 [facility] Comment on above: Performed By: #### L 702.1000 #### Main Laboratory ([facility]) [address] [place], [place] [address] Bjorn Washington MD Hypochromasia 1+ Normal [facility] Comment on above: Performed By: #### L 702.1000 #### Main Laboratory ([facility]) [address] [place], [place] [address] Bjorn Washington MD Lymphocytes/100 WBC (Bld) 6.1 % Low 15-45 [facility] Comment on above: Performed By: #### L 702.1000 #### Main Laboratory ([facility]) [address] [place], [place] [address] Bjorn Washington MD MCH (RBC) [Entitic mass] 26.7 pg Low 27.5-33.0 [facility] Comment on above: Performed By: #### L 702.1000 #### Main Laboratory ([facility]) [address] [place], [place] [address] Bjorn Washington MD MCHC (RBC) [Mass/Vol] 33.9 g/dL Normal 33.0-36.0 [facility] Comment on above: Performed By: #### L 702.1000 #### Main Laboratory ([facility]) [address] [place], [place] [address] Bjorn Washington MD MCV 79.0 CU ANDREW Low 80-97 [facility] Comment on above: Performed By: #### L 702.1000 #### Main Laboratory ([facility]) [address] [place], [place] [address] Bjorn Washington MD H[place]- Auto Diff 6.1 % Normal 2-10 [facility] Comment on above: Performed By: #### L 702.1000 #### Main Laboratory ([facility]) [address] [place], [facility] Bjorn Washington MD Neut-Auto Diff 87.3 % High 40-70 [facility] Comment on above: Performed By: #### L 702.1000 #### Main Laboratory ([facility]) [address] [place], [facility] Bjorn Washington MD NRBC-Auto 0.0 /100 WBC Normal <1 [facility] Comment on above: Performed By: #### L 702.1000 #### Main Laboratory ([facility]) [address] [place] [address] Bjorn Washington MD Platelet Count 309 th/cmm Normal 150-400 [facility] Comment on above: Performed By: #### L 702.1000 #### Main Laboratory ([facility]) [address] [place] [address] Bjorn Washington MD RBC 5.55 mil/cmm High 4.00-5.10 [facility] Comment on above: Performed By: #### L 702.1000 #### Main Laboratory ([facility]) [address] [place] [address] Bjorn Washington MD WBC 25.6 th/cmm High 4.4-10.5 [facility] Comment on above: Performed By: #### L 702.1000 #### Main Laboratory ([facility]) [address] [place] [address] Sinuses With Contraston 1 04-03-2021 CT Sinuses With Contrast [facility] Radiology Department Patient: SAVI NGUYEN [address] : 2000 Sex: [place] [id number] Location: [place] [address] Unit #: [id number] Ordering Phys: Good Calderon MD Exam Date: [...] by: Shane KNAPP,David Turpin on 01/31/221856 Normal [facility] Complete urinalysis with ref toirto to cultureon 01-31-2022 Urinalysis complete W Reflex Culture panel (U) No [facility] Work Phone: Comment on above: Culture not done per lab protocol Consultation - ENTon 022 Consultation - ENT [facility] Medical Records Patient: SAVI NGUYEN [address] : 2000 [place], [place] [address] Location: [facility] [phone] Unit #: [id number] Consultation - ENT Good Calderon MD Service [...] < > Report Signed by: on Normal [facility] HCO3 (BldV) [Moles/Vol]on HCO3 (Bld) [Moles/Vol] 10.4 mmol/L Low 23.0-28.0 L [facility] Work Phone: Hemoglobin A1Con 01-31-2022 Hgb A1C Normal 4.4-6.4 [facility] Comment on above: Result Comment: Vari ant detected - Specimen sent to [facility] for A1c testing. Performed By: #### L 400.0203, L400.7290, L400.9569 #### Main Laboratory ([facility]) [address] [place] [address] Bjorn Washington MD Hemoglobin [Mass/volume] in Urine by Automated test stripon 01-31-2022 Hemoglobin Auto test strip (U) [Mass/Vol] Negative Negative [facility] Work Phone: Ionized Calciumon 01-31-2022 Ionized Calcium 1.20 mmol/L Normal 1.15-1.29 [facility] Comment on above: Performed By: #### L 702.1000 #### Main Laboratory ([facility]) [address] [place] [address] Bjorn Washington MD Ketones Auto test strip (U) [Mass/Vol]on 01-31-2022 Ketones (U) [Mass/Vol] 10 mg/dL High Negative [facility] Work Phone: Magnesiumon 01-31-2022 Magnesium [Mass/Vol] 1.8 mg/dL Normal 1.8-2.5 [facility] Comment on above: Performed By: #### L 702.1000 #### Main Laboratory ([facility]) [address] [place] [address] Bjorn Washington MD Meter Glucoseon 01-31-2022 Glucose [Mass/Vol] 173 mg/dL High 70-110 [facility] Comment on above: Performed By: #### L 702.1000 #### Main Laboratory ([facility]) [address] [place] [address] Bjorn Washington MD Glucose [Mass/Vol] 146 mg/dL High 70-110 [facility] Comment on above: Performed By: #### L 400.0202, L400.2200, L400.4800 #### Main Laboratory ([facility]) [address] [place] [address] Bjorn Washington MD Glucose [Mass/Vol] 136 mg/dL High 70-110 [facility] Comment on above: Performed By: #### L 400.0202, L400.2200, L400.4800 #### Main Laboratory ([facility]) [address] [place] [address] Bjorn Washington MD Glucose [Mass/Vol] 163 mg/dL High 70-110 [facility] Comment on above: Performed By: #### L 702.1000 #### Main Laboratory ([facility]) [address] [place] [address] Bjorn Washington MD Glucose [Mass/Vol] 188 mg/dL High 70-110 [facility] Comment on above: Performed By: #### L 702.1000 #### Main Laboratory ([facility]) [address] [place] [address] Bjorn Washington MD Glucose [Mass/Vol] 170 mg/dL High 70-110 [facility] Comment on above: Performed By: #### L 702.1000 #### Main Laboratory ([facility]) [address] [place] [address] Bjorn Washington MD Glucose [Mass/Vol] 165 mg/dL High 70-110 [facility] Comment on above: Performed By: #### L 702.1000 #### Main Laboratory ([facility]) [address] [place] [address] Bjorn Washington MD Glucose [Mass/Vol] 164 mg/dL High 70-110 [facility] Comment on above: Performed By: #### L 702.1000 #### Main Laboratory ([facility]) [address] [place] [address] Bjorn Washington MD Glucose [Mass/Vol] 196 mg/dL High 70-110 [facility] Comment on above: Performed By: #### L 400.0202, L400.2200, L400.4800 #### Main Laboratory ([facility]) [address] [place] [address] Bjorn Washington MD Glucose [Mass/Vol] 185 mg/dL High 70-110 [facility] Comment on above: Performed By: #### L 400.0202, L400.2200, L400.4800 #### Main Laboratory ([facility]) [address] [place] [address] Bjorn Washington MD Glucose [Mass/Vol] 195 mg/dL High 70-110 [facility] Comment on above: Performed By: #### L 702.1000 #### Main Laboratory ([facility]) [address] [place] [address] Bjorn Washington MD Glucose [Mass/Vol] 191 mg/dL High 70-110 [facility] Comment on above: Performed By: #### L 702.1000 #### Main Laboratory ([facility]) [address] [place] [address] Bjorn Washington MD Glucose [Mass/Vol] 228 mg/dL High 70-110 [facility] Comment on above: Performed By: #### L 702.1000 #### Main Laboratory ([facility]) [address] [place] [address] Bjorn Washington MD No Panel Informationon 01-31 Blood Gas Notified By Yes [facility] Work Phone: Blood Gas Patient Equipment Room Air [facility] Work Phone: Venous Blood pH 7.22 Low 7.31-7.41 [facility] Work Phone: Hemoglobin A1c See comment 4.4-6.4 [facility] Work Phone: Comment on above: Variant detected - S pecimen sent to [facility] for A1c testing. Ionized Calcium 1.20 mmol/L 1.15-1.29 [facility] Work Phone: Osmolality of Serum or Plasm aon 01-31-2022 Osmolality [Osmolality] 299 mOsm 270-300 L [facility] Work Phone: Osmolality, Serumon 02-01-20 22 Osmolality, Serum 299 mOsm Normal 270-300 [facility] Comment on above: Performed By: #### L 400.0202, L400.2200, L400.4800 #### Main Laboratory ([facility]) [address] [place] [address] Bjorn Washington MD Osmolality, Serum 297 mOsm Normal 270-300 [facility] Comment on above: Performed By: #### L 702.1000 #### Main Laboratory ([facility]) [address] [place] [address] Bjorn Washington MD Osmolality, Serum 298 mOsm Normal 270-300 [facility] Comment on above: Performed By: #### L 400.0202, L400.2200, L400.4800 #### Main Laboratory ([facility]) [address] [place], [place] [address] Bjorn Washington MD Osmolality, Serum 309 mOsm High 270-300 [facility] Comment on above: Performed By: #### L 702.1000 #### Main Laboratory ([facility]) [address] [place], [place] [address] Bjorn Washington MD Other useful informationon 1 04-03-2021 Other useful information Vein [facility] Work Phone: Phosphoruson 01-31-2022 Phosphate [Mass/Vol] 1.3 mg/dL Low 2.4-4.7 [facility] Comment on above: Performed By: #### L 400.0202, L400.2200, L400.4800 #### Main Laboratory ([facility]) [address] [place], [place] [address] Bjorn Washington MD Phosphate [Mass/Vol] 1.5 mg/dL Low 2.4-4.7 [facility] Comment on above: Result Comment: Delt a: 2.1 on 01/31/22 Performed By: #### L 702.1000 #### Main Laboratory ([facility]) [address] [place] [address] Bjorn Washington MD Phosphate [Mass/Vol] 2.1 mg/dL Low 2.4-4.7 [facility] Comment on above: Performed By: #### L 400.0202, L400.2200, L400.4800 #### Main Laboratory ([facility]) [address] [place] [place] [address] Bjorn Washington MD Phosphate [Mass/Vol] 2.3 mg/dL Low 2.4-4.7 [facility] Comment on above: Performed By: #### L 702.1000 #### Main Laboratory ([facility]) [address] [place] [address] Bjorn Washington MD Protein Auto test strip (U) [Mass/Vol]on 01-31-2022 Protein (U) [Mass/Vol] 10 mg/dL Negative [facility] Work Phone: Serum or plasma fasting gluc ose measurement (mass/volume)on 01-31-2022 Glucose post fast [Mass/Vol] 216 mg/dL High 70-110 [facility] Work Phone: Specific gravity Auto test s trip (U) [Rel density]on 01-31-2022 Specific gravity (U) [Rel density] >=1.030 1.000-1.035 [facility] Work Phone: Urinalysis w Micro Rflx Cult on 01-31-2022 Bacteria Trace Normal [facility] Comment on above: Order Comment: Urine Source Urine, Clean Catch Performed By: #### L 400.0202, L400.2200, L400.4800 #### Main Laboratory ([facility]) [address] [place] [address] Bjorn Washington MD Epi,Squamous 11-20 High [facility] Comment on above: Order Comment: Urine Source Urine, Clean Catch Performed By: #### L 400.0202, L400.2200, L400.4800 #### Main Laboratory ([facility]) [address] [place] [address] Bjorn Washington MD Mucous Present Normal [facility] Comment on above: Order Comment: Urine Source Urine, Clean Catch Performed By: #### L 400.0202, L400.2200, L400.4800 #### Main Laboratory ([facility]) [address] [place], [place] [address] Bjorn Washington MD RBC 0-2 Normal [facility] Comment on above: Order Comment: Urine Source Urine, Clean Catch Performed By: #### L 400.0202, L400.2200, L400.4800 #### Main Laboratory ([facility]) [address] [place], [place] [address] Bjorn Washington MD UA Reflex Culture No Normal [facility] Comment on above: Order Comment: Urine Source Urine, Clean Catch Result Comment: Cult ure not done per lab protocol Performed By: #### L 400.0202, L400.2200, L400.4800 #### Main Laboratory ([facility]) [address] [place] [address] Bjorn Washington MD WBC 0-5 Normal [facility] Comment on above: Order Comment: Urine Source Urine, Clean Catch Performed By: #### L 400.0202, L400.2200, L400.4800 #### Main Laboratory ([facility]) [address] [place], [place] [address] Bjorn Washington MD Yeast Present High [facility] Comment on above: Order Comment: Urine Source Urine, Clean Catch Performed By: #### L 400.0202, L400.2200, L400.4800 #### Main Laboratory ([facility]) [address] [place], [place] [address] Bjorn Washington MD Appearance (U) Clear Normal [facility] Comment on above: Order Comment: Urine Source Urine, Clean Catch Performed By: #### L 400.0202, L400.2200, L400.4800 #### Main Laboratory ([facility]) [address] [place], [place] [address] Bjorn Washington MD Bilirubin Ql (U) Negative Normal Negative [facility] Comment on above: Order Comment: Urine Source Urine, Clean Catch Performed By: #### L 400.0202, L400.2200, L400.4800 #### Main Laboratory ([facility]) [address] [place] [address] Bjorn Washington MD Color (U) Yellow Normal [facility] Comment on above: Order Comment: Urine Source Urine, Clean Catch Performed By: #### L 400.0202, L400.2200, L400.4800 #### Main Laboratory ([facility]) [address] [place] [address] Bjorn Washington MD Glucose Ql (U) Negative Normal Negative [facility] Comment on above: Order Comment: Urine Source Urine, Clean Catch Performed By: #### L 400.0202, L400.2200, L400.4800 #### Main Laboratory ([facility]) [address] [place] [address] Bjorn Washington MD Ketones Ql (U) 10 mg/dL High Negative [facility] Comment on above: Order Comment: Urine Source Urine, Clean Catch Performed By: #### L 400.0202, L400.2200, L400.4800 #### Main Laboratory ([facility]) [address] [place] [address] Bjorn Washington MD Leukocytes Negative Normal Negative [facility] Comment on above: Order Comment: Urine Source Urine, Clean Catch Performed By: #### L 400.0202, L400.2200, L400.4800 #### Main Laboratory ([facility]) [address] [place] [address] Bjorn Washington MD Nitrite Ql (U) Negative Normal Negative [facility] Comment on above: Order Comment: Urine Source Urine, Clean Catch Performed By: #### L 400.0202, L400.2200, L400.4800 #### Main Laboratory ([facility]) [address] [place] [address] Bjorn Washington MD pH (U) 6.0 [pH] Normal 5.0-8.0 [facility] Comment on above: Order Comment: Urine Source Urine, Clean Catch Performed By: #### L 400.0202, L400.2200, L400.4800 #### Main Laboratory ([facility]) [address] [place] [address] Bjorn Washington MD Protein Ql (U) 10 mg/dL Normal Negative [facility] Comment on above: Order Comment: Urine Source Urine, Clean Catch Performed By: #### L 400.0202, L400.2200, L400.4800 #### Main Laboratory ([facility]) [address] [place] [address] Bjorn Washington MD Specific gravity (U) [Rel density] >=1.030 Normal 1.000-1.035 [facility] Comment on above: Order Comment: Urine Source Urine, Clean Catch Performed By: #### L 400.0202, L400.2200, L400.4800 #### Main Laboratory ([facility]) [address] [place] [address] Bjorn Washington MD Urobilinogen Normal Normal 0.2-1.0 [facility] Comment on above: Order Comment: Urine Source Urine, Clean Catch Performed By: #### L 400.0202, L400.2200, L400.4800 #### Main Laboratory ([facility]) [address] [place] [address] Bjorn Washington MD Urine appearance determinati onon 01-31-2022 Appearance (U) Clear [facility] Work Phone: Urine color determinationon 01-31-2022 Color (U) Yellow [facility] Work Phone: Urine glucose measurement by automated test strip (mass/volume)on 01-31-2022 Glucose Auto test strip (U) [Mass/Vol] Negative Negative [facility] Work Phone: Urine leukocytes count by au tomated test strip (number/volume)on 01-31-2022 WBC Auto test strip (U) [#/Vol] Negative Negative [facility] Work Phone: Urine mucus detection by aut omated methodon 01-31-2022 Mucus Auto Ql (U) Present [facility] Work Phone: Urine nitrite detection by a utomated test stripon 01-31-2022 Nitrite Auto test strip Ql (U) Negative Negative [facility] Work Phone: Urobilinogen Auto test strip (U) [Mass/Vol]on 01-31-2022 Urobilinogen (U) [Mass/Vol] Normal 0.2-1.0 [facility] Work Phone: Venous Blood Gaseson 022 ABG Device Room Air Normal [facility] Comment on above: Performed By: #### L [id number] #### Main Laboratory ([facility]) [address] [place], [place] [address] Bjorn [place] MD ABG Draw Site Vein Normal [facility] Comment on above: Performed By: #### L [id number] #### Main Laboratory ([facility]) [address] [place], [place] [address] Bjorn [place] MD HCO3 (Bld) [Moles/Vol] 10.4 mmol/L Low 23.0-28.0 L [facility] Comment on above: Performed By: #### L [id number] #### Main Laboratory ([facility]) [address] [place], [place] [address] Bjorn [place] MD Oxygen saturation in Blood 91 % Low 95-98 [facility] Comment on above: Performed By: #### L [id number] #### Main Laboratory ([facility]) [address] [place], [place] [address] Bjorn Washington MD Unit Notified? Yes Normal [facility] Comment on above: Performed By: #### L [id number] #### Main Laboratory ([facility]) [address] [place] [address] Bjorn [place] MD Venous Base Excess -17 mmol/L Low -2-3 [facility] Comment on above: Performed By: #### L [id number] #### Main Laboratory ([facility]) [address] [place] [address] Bjorn [place] MD Venous FiO2 21.00 Normal [facility] Comment on above: Performed By: #### L [id number] #### Main Laboratory ([facility]) [address] [place] [address] Bjorn [place] MD Venous pCO2 25 mmHg Low 41-51 [facility] Comment on above: Performed By: #### L [id number] #### Main Laboratory ([facility]) [address] [place] [address] Bjorn [place] MD Venous pH 7.22 Low 7.31-7.41 [facility] Comment on above: Performed By: #### L [id number] #### Main Laboratory ([facility]) [address] [place] [address] Bjorn [place] MD Venous pO2 70 mmHg Low 80-105 [facility] Comment on above: Performed By: #### L [id number] #### Main Laboratory ([facility]) [address] [place] [address] Bjorn [place] MD Venous blood Amanda indexo n 01-31-2022 Amanda index (BldV+Inhl gas) [Ratio] 21.00 [facility] Work Phone: Venous blood base excess by calculationon 01-31-2022 Base excess Calc (BldV) [Moles/Vol] -17 mmol/L Low -2-3 [facility] Work Phone: Venous blood oxygen saturati on (mass fraction)on 01-31-2022 Oxygen saturation in Venous blood 91 % Low 95-98 [facility] Work Phone: Venous blood partial pressur e of carbon dioxide measurement adjusted to patients actuon 01-31-2022 CO2 adjusted to patient's actual temperature (BldV) [Partial pressure] 25 mmHg Low 41-51 [facility] Work Phone: Venous blood partial pressur e of oxygen measurement with patient temperature corrrecton 01-31-2022 Oxygen adjusted to patient's actual temperature (BldV) [Partial pressure] 70 mmHg Low 80-105 [facility] Work Phone: pH Auto test strip (U)on pH (U) 6.0 [pH] 5.0-8.0 [facility] Work Phone: PAP ACOG PANEL 2: 21 to 29on 06-27-2021 . . [facility] Comment on above: Performed By: #### [id number] #### [facility] [address] [place] [address] Dr. Ute Adame Age Gdln ACOG Testing - [facility] Comment on above: Performed By: #### [id number] #### [facility] [address] [place] [address] Dr. Ute Adame DIAGNOSIS: Comment [facility] Comment on above: Result Comment: NEGA TIVE FOR INTRAEPITHELIAL LESION OR MALIGNANCY. CELLULAR CHANGES ASSOCIATED WITH INFLAMMATION ARE PRESENT. Performed By: #### [id number] #### [facility] [address] [place] [address] Dr. Ute Adame Methodology: Comment [facility] Comment on above: Result Comment: This liquid based ThinPrep(R) pap test was screened with the use of an image guided system. Performed By: #### [id number] #### [facility] [address] [place] [address] Dr. Ute Adame Note: Comment [facility] Comment on above: Result Comment: The Pap smear is a screening test designed to aid in the detection of premalignant and malignant conditions of the uterine cervix. It is not a diagnostic procedure and should not be used as the sole means of detecting cervical cancer. Both false-positive and false-negative reports do occur. . Performed By: #### [id number] #### [facility] [address] [place] [address] Dr. Ute Adame Performed by: Comment Normal [facility] Comment on above: Result Comment: Danielle Alcaraz, House Mover Helper (ASCP) Performed By: #### [id number] #### [facility] [address] [place] [address] Dr. Ute Aadme Reflex Criteria: Comment Normal [facility] Comment on above: Result Comment: The HPV DNA reflex criteria were not met with this specimen result therefore, no HPV testing was performed. . Performed By: #### [id number] #### [facility] [address] [place] [address] Dr. Ute Adame Specimen adequacy: Comment Normal [facility] Comment on above: Result Comment: Sati sfactory for evaluation. Endocervical and/or squamous metaplastic cells (endocervical component) are present. Performed By: #### [id number] #### [facility] [address] [place] [address] Dr. Ute Adame Vital Signs Date Time Vital Sign Value Performing Clinician Facility 03-20-2023 12:42-0500 Body height 163 cm Feli MULLINS Work Phone: [facility] 03-20-2023 12:42-0500 Body mass index (BMI) [Ratio] 33.84 kg/m2 Feli Nguyen APRN-MOLD COOLER Work Phone: [facility] 03-20-2023 12:42-0500 Body weight 89.9 kg Feli Nguyen APRN-MOLD COOLER Work Phone: [facility] 03-20-2023 12:42-0500 Diastolic blood pressure 76 mm[Hg] Feli Nguyen APRN-MOLD COOLER Work Phone: [facility] 03-20-2023 12:42-0500 Heart rate 87 /min Feli Nguyen APRN-MOLD COOLER Work Phone: [facility] 03-20-2023 12:42-0500 Systolic blood pressure 122 mm[Hg] Feli Nguyen COMPUTER GAME PROGRAMMER-MOLD COOLER Work Phone: [facility] 03-19-2023 13:37-0500 Body mass index (BMI) [Ratio] 33.81 kg/m2 Sandra Bhatia PA Work Phone: [facility] 03-19-2023 13:37-0500 Body weight 89.36 kg Sandra Bhatia PA Work Phone: [facility] 03-19-2023 13:37-0500 Diastolic blood pressure 74 mm[Hg] Sandra Bhatia PA Work Phone: [facility] 03-19-2023 13:37-0500 Systolic blood pressure 122 mm[Hg] Sandra Bhatia PA Work Phone: [facility] 02-26-2023 11:16-0500 Body mass index (BMI) [Ratio] 34.31 kg/m2 Chs Risk [facility] 02-26-2023 11:16-0500 Body temperature 98.2 [degF] Chs Risk [facility] 02-26-2023 11:16-0500 Body weight 90.67 kg Chs Risk [facility] 02-26-2023 11:16-0500 Diastolic blood pressure 64 mm[Hg] Chs Risk [facility] 02-26-2023 11:16-0500 Systolic blood pressure 110 mm[Hg] Chs Risk [facility] 02-01-2022 19:27-0500 Body temperature 98 [degF] Physician None Work Phone: [facility] Work Phone: 02-01-2022 19:27-0500 Diastolic blood pressure 77 mm[Hg] Physician None Work Phone: [facility] Work Phone: 02-01-2022 19:27-0500 Heart rate 75 /min Physician None Work Phone: [facility] Work Phone: 02-01-2022 19:27-0500 Respiratory rate 19 /min Physician None Work Phone: [facility] Work Phone: 02-01-2022 19:27-0500 SaO2% (BldA) [Mass fraction] 99 % Physician None Work Phone: [facility] Work Phone: 02-01-2022 19:27-0500 Systolic blood pressure 133 mm[Hg] Physician None Work Phone: [facility] Work Phone: 02-01-2022 00:16-0500 Body weight 83.2 kg Physician None Work Phone: [facility] Work Phone: 01-31-2022 04:13-0500 Body height 162.56 cm Physician None Work Phone: [facility] Work Phone: 01-31-2022 04:13-0500 Body mass index (BMI) [Ratio] 29.7 kg/m2 Physician None Work Phone: [facility] Work Phone: Encounters Encounter Date Encounter Type Care Provider Facility Start: 08-21-2023 End: 08-22-2023 Emergency department patient visit PRIYA BRITT [facility] Start: 08-02-2023 End: 08-02-2023 ambulatory FELI Sherwood [facility] Start: 05-07-2023 Telephone encounter Joan Mosqueda RN [facility] - Diabetes Start: 05-07-2023 End: 05-07-2023 ambulatory JOBST SERVICE [facility] Start: 05-07-2023 End: 05-07-2023 ambulatory Dcc Diab Nurse 4 [facility] - Diabetes Start: 04-16-2023 Telephone encounter Joan Mosqueda RN [facility] - Diabetes Start: 04-16-2023 End: 04-16-2023 ambulatory Dcc Diab Nurse 4 [facility] [place] - Diabetes Start: 04-12-2023 End: 04-12-2023 ambulatory Dcc Diab Nurse 4 [facility] - Diabetes Comment on above: Type 1 diabetes [place] itus with hyperglycemia ([facility]) Type 1 diabetes [place] itus with hyperglycemia ([facility]) (Primary Dx) Start: 04-12-2023 End: 04-12-2023 ambulatory FELI NGUYEN [facility] Start: 04-05-2023 Telephone encounter Feli Presley Porfirio hernandez COMPUTER GAME PROGRAMMER-MOLD COOLER Work Phone: [facility] Diabetes Start: 03-20-2023 End: 03-20-2023 Refill Feli Nguyen COMPUTER GAME PROGRAMMER-MOLD COOLER Work Phone: [facility] Start: 03-20-2023 End: 03-20-2023 Office outpatient visit 25 minutes Feli Nguyen COMPUTER GAME PROGRAMMER-MOLD COOLER Work Phone: [facility] Comment on above: Type 1 diabetes [place] itus with hyperglycemia ([facility]) (Primary Dx) Start: 03-19-2023 End: 03-19-2023 ambulatory SANDRA BHATIA Not Available Start: 03-19-2023 End: 03-19-2023 Postop follow up visit related to original px Sandra CALDERÓN Work Phone: [facility] Comment on above: Postop check; 6 weeks follow-up; S/P section Start: 02-26-2023 End: 02-26-2023 ambulatory RO TABARES [facility] Start: 02-26-2023 End: 02-26-2023 care visit [facility] [place] for [facility] - Women[facility] Services Comment on above: care and examination (Primary Dx) Start: 02-23-2023 Encounter Community Services Work Phone: [facility] - [facility] 3E NICU Start: 02-20-2023 End: 02-20-2023 Evaluation and management of inpatient LASHAE Aguilera NOEMI [facility] Start: 02-20-2023 Encounter Community Services Work Phone: [facility] NICU Start: 02-16-2023 End: 02-20-2023 Evaluation and management of inpatient YESSY PEDERSEN [facility] Start: 02-04-2023 End: 02-05-2023 Evaluation and management of inpatient RO TABARES [facility] Start: 02-01-2023 End: 02-10-2023 Evaluation and management of inpatient SOPHIE HUDSON [facility] Start: 02-01-2023 End: 02-01-2023 Orders Only Anjali Andino BELLMAN Maternal- Medic ine at [facility] Comment on above: Pre-existing type 1 diabetes mellitus during in third trimester (Primary Dx); History of stillbirth in patient in third trimester, antepartum Start: 01-31-2023 End: 01-31-2023 ambulatory LINDA OLY Not Available Start: 01-23-2023 End: 01-24-2023 ambulatory LINDA R OLY [facility] Start: 01-17-2023 End: 01-17-2023 ambulatory SANDRA JANNETTE Not Available Start: 01-03-2023 End: 01-03-2023 ambulatory LINDA OLY Not Available Start: 12-20-2022 End: 12-20-2022 ambulatory SANDRA JANNETTE Not Available Start: 01-31-2022 End: 02-01-2022 Evaluation and management of inpatient None Facility:[facility] Start: 01-31-2022 End: 02-01-2022 Evaluation and management of inpatient Physician None Work Phone: [facility]-Intensive Care Unit Start: 06-21-2021 End: 06-21-[address] TAMI ALVAREZ Facility:H1 Procedures Date Procedure Procedure Detail Performing Clinician Start: 08-02-2023 Follow-up visit Follow-up FELI NGUYEN Start: 03-20-2023 Hemoglobin glycosyla juvenal a1c Feli Nguyen COMPUTER GAME PROGRAMMER-MOLD COOLER Work Phone: Start: 03-20-2023 Adult depression screening assessment Feli Nguyen COMPUTER GAME PROGRAMMER-MOLD COOLER Work Phone: Start: 02-26-2023 care Care FELI NGUYEN Start: 02-26-2023 Adult depression screening assessment Chs Risk Start: 01-30-2023 Adult depression screening assessment Anjali Andino [facility] Start: 09-20-2022 Microscopic observat ion [Identifier] in Cervix by Cyto stain Anjali Andino [facility] Start: 01-31-2022 Blood count hemoglobin Comment on above: Order Comment: Urine Source Urine, Clean Catch Performed By: #### L [id number], L400.2200, L400.4800 #### Main Laboratory ([facility]) [address] [place] [address] Bjorn [place] MD Start: 01-31-2022 CT of paranasal sinu ses with contrast Physician None Work Phone: Start: 04-27-2021 Microalbumin [Mass/volume] in Urine by Test strip Anjali Andino [facility] Start: 10-24-2019 End: 06-02-2020 H/O: section Previous delivery, antepartum Anjali Andino [facility] H/O: section S/P sectio n Sandra CALDERÓN Work Phone: Plan of Treatment Date Care Activity Detail Author Start: 02-02-2033 DTaP,Tdap and Td Vaccines (10 - Td or Tdap) DTaP,Tdap and Td Vaccines (10 - Td or Tdap) [facility] Start: 03-25-2030 DTaP,Tdap and Td Vaccines (9 - Td or Tdap) DTaP,Tdap and Td Vaccines (9 - Td or Tdap) [facility] Start: 09-20-2025 Screening for malign ant neoplasm of cervix Pap Smear [facility] Start: 03-26-2024 Tobacco Screening Tobacco Screening [facility] Start: 03-20-2024 Adult BMI Screening Adult BMI Screen ing [facility] Start: 03-20-2024 Depression Screening Depression Scre ening [facility] Start: 03-20-2024 Tobacco Screening Tobacco Screening [facility] Start: 02-27-2024 Adult BMI Screening Adult BMI Screen ing [facility] Start: 02-27-2024 Depression Screening Depression Scre ening [facility] Start: 02-27-2024 Tobacco Screening Tobacco Screening [facility] Start: 02-20-2024 Tobacco Screening Tobacco Screening [facility] Start: 02-17-2024 Adult BMI Screening Adult BMI Screen ing [facility] Start: 02-02-2024 End: 02-02-2024 US MFM with or without consult US MFM with or without consult Imaging Routine Pre-existing type 1 diabetes mellitus during in third trimester History of stillbirth in patient in third trimester, antepartum Expected: 02/02/2024 (Approximate), Expires: 02/02/2024 [facility] Work Phone: Comment on above: Expected: 02/02/2024 (Approximate), Expires: 02/02/2024 Start: 01-31-2024 Depression Screening Depression Scre ening [facility] Start: 01-24-2024 Adult BMI Screening Adult BMI Screen ing [facility] Start: 01-24-2024 Tobacco Screening Tobacco Screening [facility] Start: 10-07-2023 Influenza vaccination Influenza Vacc ine [facility] Start: 06-18-2023 End: 06-18-2023 Patient encounter procedure 06/18/2023 10:15 AM EDT [facility] [address] [facility] [address] [place] [phone] Feli Nguyen, COMPUTER GAME PROGRAMMER-MOLD COOLER [address] [facility] [place], [place] [id number] [facility] Start: 05-07-2023 End: 05-07-2023 ambulatory 05/07/2023 8:45 AM EDT [facility] [address] [place] [phone] [facility] Start: 04-16-2023 End: 04-16-2023 ambulatory 04/16/2023 8:00 AM EDT [facility] [address] [place] [address] [facility] Start: 04-02-2023 End: 04-02-2023 ambulatory 04/02/2023 1:30 PM EST Visit [facility] [address] [place] [address] Sandra Bhatia PA [address] [place] [address] [facility] Start: 03-20-2023 End: 03-20-2023 Patient encounter procedure 03/20/2023 12:45 PM EST Office Visit [facility] [address] [facility] [address] [place] [phone] Feli Nguyen, COMPUTER GAME PROGRAMMER-MOLD COOLER [address] [facility] [place] [address] [facility] Start: 02-26-2023 End: 02-26-2023 ambulatory 02/26/2023 11:15 AM EST Visit [facility] [address] [place] [phone] [facility] Start: 02-21-2023 End: 02-21-2023 Patient encounter procedure 02/21/2023 1:45 PM EST Office Visit [facility] [address] [facility] [address], [place] [phone] Feli Nguyen, COMPUTER GAME PROGRAMMER-MOLD COOLER [address] [facility] [place] [address] [facility] Start: 02-19-2023 End: 02-19-2023 Patient encounter procedure 02/19/2023 11:00 AM EST Appointment [facility] [address] [place] [address] [facility] Start: 02-06-2023 End: 02-06-2023 ambulatory 02/06/2023 1:00 PM EST Initial [facility] [address] [place] [phone] [facility] Start: 02-01-2023 End: 02-01-2023 Patient encounter procedure 02/01/2023 3:00 PM EST Office Visit Maternal- Medicine at [facility] [address] [place] [phone] Quinton Arita MD [address], [address] [place] [address] [facility] Start: 10-06-2022 Influenza vaccination Influenza Vacc ine [facility] Start: 04-27-2022 Urine screening for protein Urine Microalbumin [facility] Start: 02-01-2022 [facility] Work Phone: Start: 02-01-2022 Patient discharge [facility] Work Phone: Start: 02-01-2022 Patient transfer [facility] Work Phone: Start: 01-31-2022 Referral to ear, nos e and throat service [facility] Work Phone: Start: 01-31-2022 End: 01-31-2022 [facility] Work Phone: Start: 01-31-2022 Notification of physician [facility] Work Phone: Start: 01-31-2022 Catheterization of vein [facility] Work Phone: Start: 01-31-2022 Hospital admission, emergency, from emergency room [facility] Work Phone: Start: 01-31-2022 Vital signs measurements [facility] Work Phone: Start: 2018 Adult BMI Follow Up Plan Adult BMI Follow Up Plan [facility] Start: 2018 Diabetic foot examination Diabetic Foot Exam [facility] Start: 2000 COVID-19 Vaccine (#1) COVID-19 Vacci ne (#1) [facility] Start: 2000 Glaucoma screening Diabetic Op hthalmology Exam [facility] Start: 2000 Tobacco Counseling Tobacco Counselin g [facility] Bicarbonate [Moles/volume] in Blood [facility] Work Phone: Delta base, blood [facility] Work Phone: Measurement of venou s partial pressure of carbon dioxide [facility] Work Phone: Measurement of venou s partial pressure of oxygen [facility] Work Phone: Methicillin resistan t Staphylococcus aureus (MRSA) DNA [Presence] in Unspecified specimen by ROQUE with probe detection [facility] Work Phone: Methicillin resistan t Staphylococcus aureus [Presence] in Unspecified specimen by Organism specific culture [facility] Work Phone: Oxygen saturation in Venous blood [facility] Work Phone: Patient Education Tooth Abscess (DC) Diabetic Ketoacidosis (DC) [facility] Work Phone: Patient referral [facility] Work Phone: Vancomycin resistanc e Francisco gene [Presence] by Molecular method [facility] Work Phone: Immunizations Immunization Date Immunization Notes Care Provider Qamar izquierdo 02-02-2023 influenza, injectabl e, quadrivalent, preservative free [facility] Work Phone: [facility] 02-02-2023 tetanus toxoid, redu jonathan diphtheria toxoid, and acellular pertussis vaccine, adsorbed [facility] Work Phone: [facility] 02-02-2023 influenza virus vacc ine, unspecified formulation [facility] 04-20-2020 measles, mumps and rubella virus vaccine Mariaja [facility] 03-25-2020 tetanus toxoid, redu jonathan diphtheria toxoid, and acellular pertussis vaccine, adsorbed [facility] 10-24-2019 influenza, injectabl e, quadrivalent, preservative free [facility] 10-24-2019 influenza virus vacc ine, unspecified formulation [facility] 11-22-2018 influenza, injectabl e, quadrivalent, preservative free [facility] 03-22-2018 influenza virus vacc ine, unspecified formulation [facility] 03-20-2018 influenza, injectabl e, quadrivalent, preservative free [facility] 11-28-2016 influenza, injectabl e, quadrivalent, preservative free [facility] 11-28-2016 meningococcal polysaccharide (groups A, C, Y and W-135) diphtheria toxoid conjugate vaccine (MCV4P) [facility] 09-27-2015 hepatitis A vaccine, pediatric/adolescent dosage, 2 dose schedule [facility] 09-27-2015 Human Papillomavirus 9-valent vaccine [facility] 03-03-2014 Human Papillomavirus 9-valent vaccine [facility] 03-03-2014 tetanus toxoid, redu jonathan diphtheria toxoid, and acellular pertussis vaccine, adsorbed [facility] 12-02-2012 influenza, seasonal, injectable, preservative free [facility] 07-24-2012 hepatitis A vaccine, pediatric/adolescent dosage, 2 dose schedule [facility] 07-24-2012 meningococcal polysaccharide (groups A, C, Y and W-135) diphtheria toxoid conjugate vaccine (MCV4P) [facility] 07-24-2012 tetanus toxoid, redu jonathan diphtheria toxoid, and acellular pertussis vaccine, adsorbed [facility] 09-15-2004 diphtheria, tetanus toxoids and acellular pertussis vaccine [facility] 09-15-2004 measles, mumps and rubella virus vaccine [facility] poliovirus vaccine, inactivated [facility] 04-16-2002 diphtheria, tetanus toxoids and acellular pertussis vaccine, unspecified formulation [facility] 04-16-2002 haemophilus influenz ae type b vaccine, conjugate unspecified formulation [facility] 04-16-2002 hepatitis B vaccine, pediatric or pediatric/adolescent dosage [facility] 04-16-2002 measles, mumps and rubella virus vaccine [facility] 04-16-2002 poliovirus vaccine, unspecified formulation [facility] 2000 diphtheria, tetanus toxoids and acellular pertussis vaccine, unspecified formulation [facility] 2000 haemophilus influenz ae type b conjugate and Hepatitis B vaccine [facility] 2000 poliovirus vaccine, inactivated [facility] 2000 diphtheria, tetanus toxoids and acellular pertussis vaccine, unspecified formulation [facility] 2000 pneumococcal conjuga te vaccine, 7 valent [facility] 2000 diphtheria, tetanus toxoids and acellular pertussis vaccine, unspecified formulation [facility] 2000 haemophilus influenz ae type b conjugate and Hepatitis B vaccine [facility] 2000 pneumococcal conjuga te vaccine, 7 valent [facility] 2000 poliovirus vaccine, inactivated [facility] Payers Date Payer Category Payer Private Health Insurance [facility] [id number] 2022-Present [phone] [address] [place] [address] [id number] 2021 Medicaid [employer] [place] [id number] 2021-Present [address] [place] [address] [id number] 2021 Medicaid [id number] 2017 Unknown [id number]. [id number] 2000 Unknown [id number] 2.16.840.1.510318.3.579. 2.593 2000 Unknown [id number] 2.16.840.1.275518.3.579. 2.1259 2000 Unknown [id number] 2.16.840.1.749579.3.579. 2.1259 2000 Unknown [id number] 2.16.840.1.013903.3.579. 2.9 2000 Unknown [id number] 2.16.840.1.734083.3.579. 2.1259 2000 Unknown [id number] 2.16.840.1.623283.3.579. 2.9 2000 Unknown [id number] 2.16.840.1.064603.3.579. 2.1286 2000 Unknown [id number] 2.16.840.1.740063.3.579. 2.1286 2000 Unknown [id number] 2.16.840.1.028431.3.579. 2.1286 2000 Unknown [id number] 2.16.840.1.907771.3.579. 2.6 2000 Unknown [id number] 2.16.840.1.642383.3.579. 2.1286 2000 Unknown [id number] 2.16.840.1.712046.3.579. 2.1285 2000 Unknown [id number] 2.16.840.1.671814.3.579. 2.1286 2000 Unknown [id number] 2.16.840.1.612521.3.579. 2.1286 2000 Unknown [id number] 2.16.840.1.155712.3.579. 2.1286 2000 Unknown [id number] 2.16.840.1.396690.3.579. 2.1286 2000 Unknown [id number] 2.16.840.1.454687.3.579. 2.1286 2000 Unknown [id number] 2.16.840.1.001365.3.579. 2.1286 2000 Unknown [id number] 2.16.840.1.076729.3.579. 2.1286 2000 Unknown [id number] 2.16.840.1.302848.3.579. 2.1286 1959 Unknown [id number] 1959 Unknown [id number] Self-pay Unknown [id number] 2.16.840.1.738486.3.579. 2.139 Social History Date Type Detail Facility Start: 01-31-2022 Tobacco smoking stat [facility] Never smoked tobacco (finding) [facility] Work Phone: Start: 01-31-2022 None [facility] Work Phone: Start: 01-31-2022 < 1 pack per day [facility] Work Phone: Start: 01-31-2022 Yes [facility] Work Phone: Start: 01-31-2022 Nicotine [facility] Work Phone: Start: 2000 Sex Assigned At Female L [facility] Work Phone: Start: 07-22-2022 Tobacco smoking stat [facility] Ex-smoker [facility] History of tobacco use [facility] History of tobacco use Cigarette Smoker P [facility] of tobacco [facility] Start: 07-22-2022 End: 02-01-2023 Tobacco use and exposure Smokeless tobacco non-user [facility] Start: 01-23-2023 End: 03-26-2023 Alcohol intake Ex-drinker (finding) [facility] Start: 10-11-2019 End: 02-17-2020 History of Social function [facility] Start: 10-11-2019 End: 02-17-2020 Social connection and isolation panel [facility] Do you belong to any clubs or organizations such as sikhism groups, unions, fraternal or athletic groups, or school groups? No [facility] Are you now , , , , never or living with a partner? Never [facility] How hard is it for y ou to pay for the very basics like food, housing, medical care, and heating Not hard at all [facility] Do you feel stress - tense, restless, nervous, or anxious, or unable to sleep at night because your mind is troubled all the time - these days [OSQ] Not at all [facility] The thought of jennifer earline myself has occurred to me Never [facility] Start: 12-18-2018 Alcohol Comment occassional [facility] Start: 06-23-2022 [facility] Start: 05-13-2018 Gender identity Identifies as female gender (finding) [facility] Start: 05-13-2018 Sexual orientation Heterosexual (fin ding) [facility] Start: 02-01-2023 Tobacco smoking stat [facility] Smokes tobacco daily [facility] Start: 09-05-2022 Tobacco smoking stat [facility] Occasional tobacco smoker [facility] Start: 09-05-2022 Tobacco Comment 5 or less cigs / day; started smoking at 16yoThinking about quitting [facility] Start: 06-19-2022 Alcohol Comment Denies alcohol use [facility] NEGATED: Highlighted row [facility] Work Phone: Medical Equipment Procedure Code Equipment Code Equipment Origin al Text Equipment Identifier Dates 1 strip by miscellaneous route every 4 (four) hours as needed (illness or hyperglycemia). [id number] Start: 08-30-2022 Use in case of p ump failure [id number] Start: 09-27-2022 End: 03-20-2023 Accu-Chek Fastcl ix Lancets- Use to test blood glucose 8 times daily as directed. [id number] Start: 08-30-2022 End: 03-20-2023 BD Nettie Pen Need les Use as directed to give insulin injections via insulin pen up to 8 times daily [id number] Start: 05-31-2022 5 injections daily [id number] Start: 08-30-2022 End: 03-20-2023 5 injections daily [id number] Start: 03-26-2023 Goals Date Patient Goal Desired Activity /State Personal health goal Comment on above: Formatting of this n ote might be different from the original. Evaluation of progress towards goal: Safe dc transition from hospital to home. Functional Status Date Assessment Result Facility 01-31-2022 Functional status Yes [facility] Work Phone: Mental Status Date Assessment Result Facility 01-31-2022 Cognitive function Oriented to P erson, Place and Time [facility] Work Phone: Clinical Notes 01-31-2022 to 05-07-2023 Telephone Encounter - Joan Mosqueda RN - 05/07/2023 8:52 AM EDTTelephone Encounter - Joan Mosqueda RN - 05/07/2023 8:52 AM Mae Mosqueda RN - 05/07/2023 8:45 AM EDT Note Date & Type Note Facility 05-07-2023 Miscellaneous Notes Savi presented for her final pump education appointment today. Her pump upload is in media producer. To note: she ran out of insulin while at work and continued with insulin injections until this morning. Secondly, she lost her sensors at home (believes her daughter hid them). Not in control IQ and manually checking blood sugars. This morning BG was 253. I gave her a sample dexcom g7 sensor today to get back on control IQ. She is linked in [email or web address] and was instructed to keep the dank open and running. Thank you. documented in this encounter [employer] 05-07-2023 Telephone encounter Note Savi presented for her final pump education appointment today. Her pump upload is in [employer]. To note: she ran out of insulin while at work and continued with insulin injections until this morning. Secondly, she lost her sensors at home (believes her daughter hid them). Not in control IQ and manually checking blood sugars. This morning BG was 253. I gave her a sample dexcom g7 sensor today to get back on control IQ. She is linked in [email or web address] and was instructed to keep the dank open and running. Thank you. [facility] 05-07-2023 History of Presen t illness Narrative Insulin Pump Instruct Progress Note Savi Nguyen presented on 05/07/23 for an advanced features training on her insulin pump. 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 Her casting machine adjuster was unable to see data on tconnect. I double checked that she was linked which she is, however, she was not keeping her dank running in the background. I instructed her to keep it open. Pump was uploaded to media producer for review. See checklist for details covered. We reviewed bad site protocol, hyperglycemia and hypoglycemia. [facility] Diabetes and Nutrition Education documented in this encounter [facility] 04-16-2023 Miscellaneous Notes Savi started insulin in her tslim this morning. Blood sugar was 189 and straight across/stable arrow. She is linked through [employer]. I asked that she call into endo office for review in a few days. Her next follow up with your office is not until 06/18/23. Is this acceptable or would you like this moved up? Thank you. Also to note, Savi liked the idea of establishing with Dr. Carbone in [place] when she is transferred to adult care. May is fine. I will keep this open so that I remember to double check she calls in for a review. documented in this encounter [facility] 04-16-2023 Telephone encounter Note Savi started insulin in her tslim this morning. Blood sugar was 189 and straight across/stable arrow. She is linked through [employer]. I asked that she call into endo office for review in a few days. Her next follow up with your office is not until 06/18/23. Is this acceptable or would you like this moved up? Thank you. Also to note, Savi liked the idea of establishing with Dr. Carbone in [place] when she is transferred to adult care. [facility] 04-16-2023 Telephone encounter Note May is fine. I will keep this open so that I remember to double check she calls in for a review. [employer] 04-16-2023 History of Presen t illness Narrative Insulin Pump Instruct Progress Note Savi Nguyen presented on 04/16/23 for an insulin start on her insulin pump. 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 I will inquire if this should be moved up. I instructed her to call into endo office weekly until rates are matched to BG needs. [facility]. She plans to call endo office tomorrow or Sunday this week. Has final pump appointment scheduled for 05/07/23. [facility] Nutrition Education documented in this encounter [employer] 04-12-2023 Miscellaneous Notes Savi is starting a t:slim pump. Will need a prescription for Humalog vials please. [facility]. Max daily dose will be around 60-70 units daily. Her long acting amount is lower but her bolus amounts are large. Thank you! Please see Humalog vial prescription. [facility]-12[facility]23 Telephone encounter Note Savi is starting a t:slim pump. Will need a prescription for Humalog vials please. Preferred pharmacy is [facility]. Max daily dose will be around 60-70 units daily. Her long acting amount is lower but her bolus amounts are large. Thank you! [facility] 04-12-2023 Telephone encounter Note Please see Humalog vial prescription. [facility] 04-12-2023 History of Presen t illness Narrative Insulin Pump Instruct Progress Note Savi Nguyen presented on 04/12/23 for a saline start on her insulin pump. 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 [facility] Diabetes and Nutrition Education documented in this encounter [facility] 04-05-2023 Miscellaneous Notes Patient has received new Tandem insulin pump and will need training. Please sign pended referral if agreeable for education. Thanks! All set. Thanks documented in this encounter [facility] 04-05-2023 Telephone encounter Note Patient has received new Tandem insulin pump and will need training. Please sign pended referral if agreeable for education. Thanks! [facility] 04-05-2023 Telephone encounter Note All set. Thanks [facility] 04-05-2023 Miscellaneous Notes Pt called saying that they are almost out of Humalog. Pharmacy said they should have 25 days left and would need a new script in order to get more before then. Let me know if you need anything else! documented in this encounter [facility] 04-05-2023 Telephone encounter Note Pt called saying that they are almost out of Humalog. Pharmacy said they should have 25 days left and would need a new script in order to get more before then. Let me know if you need anything else! [facility] 03-20-2023 Miscellaneous Notes Pharmacy called and said they needed sliding scale and specific directions for insulin dosing for current pharmacist to dispense. I have updated script. documented in this encounter [facility] 03-20-2023 Telephone encounter Note Pharmacy called and said they needed sliding scale and specific directions for insulin dosing for current pharmacist to dispense. I have updated script. [facility] 03-20-2023 History of Presen t illness Narrative [...] in 2012 when the patient presented to [facility] at the age of 12. She had [...] available for nausea or vomiting, provider available non cdl driver for questions or concerns by calling [phone]. Past admissions for DKA after diagnosis: one. [...] of Asthma Chronic ITP (idiopathic thrombocytopenic purpura) ([facility]) Diabetes type 1, controlled ([facility]) Diabetic ketoacidosis without coma associated with type 1 diabetes mellitus ([facility]) 02/07/2021 DKA (diabetic ketoacidoses) 02/10/2020 DKA, type 1 ([facility]) 10/11/2019 H/O idiopathic thrombocytopenic purpura Hx of in childhood Obesity 07/05/2022 UTI (urinary tract infection) Hx of Social History Social History Narrative Lives with family. No Known Allergies Current Outpatient Medications Medication Sig Dispense Refill acetone, urine, test strip 1 strip by miscellaneous route every 4 (four) hours as needed (illness or hyperglycemia). 100 strip 3 blood-glucose sensor (Clctin G7 SENSOR) device Change sensor every 10 [...] gauge x 5/32 needle BD Nettie Pen Mize Use as directed to give insulin injections via insulin pen up to 8 times daily 300 each 3 acetaminophen (TYLENOL EXTRA STRENGTH) 500 mg tablet Take 2 tablets (1,000 mg total) by mouth every 8 (eight) hours as needed for pain. (Patient not taking: Reported on 02/26/2023) 30 tablet 0 blood-glucose meter ([employer] VERIO REFLECT METER) misc 1 Device by [...] each 11 lancets (ACCU-CHEK FASTCLIX LANCET DRUM) [facility] Accu-Chek Fastclix Lancets- Use to test blood glucose 8 times daily as directed. (Patient not taking: Reported on 02/01/2023) 306 each 6 pen needle, diabetic (BD NETTIE 2ND GEN PEN NEEDLE) 32 gauge x 5/32 needle 5 injections daily (Patient not taking: Reported on 11/13/2022) 150 each 11 PNV 19-IRON PS,JBVJ-ENEWG-RDL ORAL Take 1 tablet by mouth Daily [...] with exam. Lab Results Component Value Date GDHTVME1W 6.8 03/20/2023 GQSCAPE3H 5.9% 01/23/2023 [id number] 6.7% 11/13/2022 Plan ASSESSMENT AND PLAN: Assessment and Plan: Assess/Plan SmartLinks: Savi was seen today for follow-up. Diagnoses and all orders for this visit: Type 1 diabetes mellitus with hyperglycemia ([facility]) - POCT Hemoglobin A1c 1. Medications [...] to tolerate fluids, call the office at [phone]. If after office hours call [phone] for non cdl driver nurse. Check for ketones. If ketones are [...] diabetes education with yessy HAMILTON at the [facility] Diabetes Education department. Savi and family have [...] SUSANNA Estrada 03/26/232007 documented in this encounter [facility] 03-19-2023 History of Presen t illness Narrative Reason for Appointment: Patient ID: Savi Nguyen is a 22 y.o. female who presents for Post-op Visit (6 week post visit. Delivered c/s 02/16/2023 @ [facility]) Patient presents today for Acute Visit appointment. Current Medications: has a current medication list which includes the following prescription(s): aspirin, insulin glargine, insulin lispro, and pnv plus multivitamin. Medical History: Active Ambulatory Problems Diagnosis Date Noted Anemia 08/03/2022 Diabetic ketoacidosis associated with type 1 diabetes mellitus (HCC) ([facility]) 08/03/2022 Other hammer toe(s) (acquired), unspecified foot 08/03/2022 Type 1 diabetes mellitus ([facility]) 08/03/2022 Type 2 diabetes mellitus without complications ([facility]) 08/03/2022 Resolved Ambulatory Problems Diagnosis Date Noted No Resolved Ambulatory Problems Past Medical History: Diagnosis Date BMI 30.0-30.9,adult Diabetes ([facility]) Diabetes mellitus type 1 ([facility]) DKA, type 1 ([facility]) Encounter for well woman exam with routine gynecological exam 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 ([facility]) 2004 Patient desires Family History Problem Relation [...] of: STEPHANE Henriquez documented in this encounter [facility] 02-26-2023 History of Presen t illness Narrative [...] 6 wks Encouraged her to call her casting machine adjuster to help manage blood sugars Follow-up with primary OBGYN in [place] for continued post often care She desires pill for contraception, will discuss with her OB in [place] RTC as needed Yessy Pedersen DO documented in this encounter [facility] 02-23-2023 Miscellaneous Notes This note [...] any outpatient needs. documented in this encounter [facility] 02-23-2023 Obstetrics Note This note [...] and to call for any outpatient needs. [facility] 02-20-2023 Miscellaneous Notes This note [...] to latch again documented in this encounter [facility] 02-20-2023 Obstetrics Note This note [...] take baby off, try to latch again [facility] 02-01-2022 Note [facility] Medical Records Patient: SAVI NGUYEN [address] : [address] [place], [place] [address] Location: ICU [phone] Unit #: [id number] [facility] #: [id number] Discharge Summary Tee Tamayo Cielo PATEL Patient [...] Reconciliation: New amoxicilli (more content not included)... [facility] 01-31-2022 Note [facility] Medical Records Patient: SAVI NGUYEN [address] : [address] [place], [place] [address] Location: ICU [phone] Unit #: [id number] History and Physical Joe Ulloa CNP Date [...] at 150 ml/h (more content not included)... [facility] Evaluation note Diagnosis Onset Date Dental infection acute Diabetes type I acute Diabetic ketoacidosis acute [facility] Work Phone: Evaluation note* Diagnosis Onset Date Resolution Status Dental infection acute Diabetes type I acute Diabetic ketoacidosis resolv ed [facility] Work Phone: Evaluation note* Diagnosis Pre-existing type 1 diabetes mellitus during in third trimester- Primary History of stillbirth in patient in third trimester, antepartum [facility] Diagnosis care and examination- Primary [facility] Diagnosis Postop check Follow-up examination, following unspecified surgery 6 weeks follow-up S/P section Other postprocedural status [facility] Diagnosis Type 1 diabetes mellitus with hyperglycemia (CMS-HCC)- Primary [facility] Diagnosis Type 1 diabetes mellitus with hyperglycemia (CMS-HCC)- Primary [facility] Diagnosis Type 1 diabetes mellitus with hyperglycemia (CMS-HCC) [facility] Diagnosis Type 1 diabetes mellitus with hyperglycemia (CMS-HCC)- Primary [facility] Additional Instructions Activity: No restrictions Diet: No restrictions Driving instructions: No driving restrictions Bathing Instructions: No restrictions Follow Up Labs/X Rays/Procedures after discharge: [facility] Work Phone: InstructionsNot on filedocumented in this encounter [facility] filedocumented in this encounter [facility] on filedocumented in this encounter [facility] on filedocumented in this encounter [facility]Not on filedocumented in this encounter [facility]ructionsNot on filedocumented in this encounter [facility] for referral (narrative)* Consultation (Routine) - Pending Review Specialty Diagnoses / Procedures Referred By Yefri gibbs Referred To Contact Endocrinology, Diabetes & Metabolism Diagnoses Type 1 diabetes mellitus with hyperglycemia ([facility]) Feli Nguyen, COMPUTER GAME PROGRAMMER-MOLD COOLER [address] [place] [address] [facility] [address] [place] [address] Referral ID Status Reason Start Date Expiration Date Visits Requested Visits Authorized [id number] Pending Review Specialty Services Required 04/05/2023 04/04/2024 1 1 [facility] Summary Purpose Family History No Family History Records Found Relationship Condition Age at Onset Recorded Date/T john Not Specified No pertinent family history Unknown Advance Directives No Advanced Directives Records Found Advance Directive Response Recorded Date/ Time [facility] DNR Comfort Care No Directive, No SS Referral February 01, 2022 1:55pm [facility] DNR Comfort Ca re Arrest No Directive, No SS Referral February 01, 2022 1:55p m Living Will Unknown January 31, 022 4:13am Durable Power of Tool And Die [employer] [facility] Care No Directive, No SS Referral [...] patient in third trimester, antepartum Procedures [facility] with or without consult Eliane Slaughter MD [address], [address] [place] [id number] [facility] [address] [place] [address] Referral ID Status Reason Start Date Expiration Date V isits Requested Visits Authorized [id number] Pending Review 02/01/2023 02/01/2024 1 1 Additional Source Comments INFORMATION SOURCE (unrecogn ized section and content) DATE CREATED AUTHOR 06/28/2021 [facility] DATE CREATED AUTHOR AUTHOR'S ORGANIZ ATION 02/01/2022 [facility] DATE CREATED AUTHOR AUTHOR'S ORGANIZ ATION 03/20/2023 [facility] EPIC DATE CREATED AUTHOR AUTHOR'S ORGANIZ ATION 05/07/2023 [facility] DATE CREATED AUTHOR AUTHOR'S ORGANIZ ATION 08/03/2023 [facility] DATE CREATED AUTHOR AUTHOR'S ORGANIZ ATION 08/24/2023 [facility] Goals (unrecognized section and content) Goals may be documented in a n alternate sectionGoals may be documented in an alternate section Care Teams (unrecognized sec tion and content) Heading Pinner Relationship Specialty Start Date End Date Services, [address] [place] PCP - General Family Medicine 03/03/18 Heading Pinner Relationship Specialty Start Date End Date Services, [address] [place] PCP - General Family Medicine 03/03/18 Heading Pinner Relationship Specialty Start Date End Date Services, [address] [place] PCP - General Family Medicine 03/03/18 Heading Pinner Relationship Specialty Start Date End Date Services, [address] [place] PCP - General Family Medicine 03/03/18 Heading Pinner Relationship Specialty Start Date End Date Services, [address] [place] PCP - General Family Medicine 03/03/18 Heading Pinner Relationship Specialty Start Date End Date Services, [address] [place] PCP - General Family Medicine 03/03/18 Heading Pinner Relationship Specialty Start Date End Date Services, [address] PCP - General [facility] Medicine 03/03/18 Heading Pinner Relationship Specialty Start Date End Date Services[address] PCP - General [facility] Medicine 03/03/18 Heading Pinner Relationship Specialty Start Date End Date Services, [address] PCP - General Family Medicine 03/03/18 Reason for Visit (unrecogniz ed section and content) Reason Comments Care Reason Comments Post-op Visit 6 week post v isit. Delivered c/s 02/16/2023 @ [facility] Reason Comments Follow-up diabetes Reason Onset Date Comments Med Refill 03/20/2023 Reason Onset Date Comments Med Refill 04/05/2023 Reason Comments Pump Training 1 Specialty Diagnoses / Procedures Referred By Yefri t Referred To Contact Endocrinology, Diabetes & Metabolism Diagnoses Type 1 diabetes mellitus with hyperglycemia ([facility]) Feli Nguyen, COMPUTER GAME PROGRAMMER-MOLD COOLER [address] [place] [address], [address] [place] [address] [facility] [address] [place] [address], [address] [place] [address] Referral ID Status Reason Start Date Expiration Date Visits Requested Visits Authorized [id number] Pending Review Specialty Services Required 04/05/2023 04/04/2024 [...] BE BASED ON THE PRIMARY CLINICAL RECORDS. [employer] provides no warranty or guarantee of the accuracy or completeness of information in this document.
[2023-11-04 08:02] LABS: RBC Urine NONE SEEN #/HPF (0-2)
[2023-11-04 08:03] LABS: Bacteria Urine TRACE #/HPF (NONE SEEN); Cast Seen? NONE SEEN #/LPF (NONE SEEN); Crystals Seen? None Seen #/HPF (None Seen); Mucus Urine NONE SEEN (NONE SEEN); Squamous Epithelial Cell Urine RARE #/LPF (NONE/RARE); Urine Culture Indicated YES
[2023-11-04 08:34] LABS: Basophils Absolute Auto 0.1 10^3/uL (0.0-0.1); Basophils Percent Auto 0.6 % (0.2-2.0); Hemoglobin 16.6 g/dL (12.0-16.0); Immature Granulocytes Pct Auto 1.2 % (0.0-0.5); Lymphocytes Absolute Auto 0.8 10^3/uL (1.2-3.8); Lymphocytes Percent Auto 4.9 % (20.5-60.0); Mean Corpuscular HGB Conc 33.9 g/dL (29.9-35.2); Mean Corpuscular Volume 79.8 fL (81.0-99.0); Monocytes Absolute Auto 0.3 10^3/uL (0.3-0.8); Monocytes Percent Auto 1.5 % (1.7-12.0); Neutrophils Absolute Auto 15.4 10^3/uL (1.4-6.5); Neutrophils Percent Auto 91.8 % (43.0-75.0); Platelet Count 421 10^3/uL (150-450); Red Blood Count 6.14 10^6/uL (4.20-5.40); Red Cell Distribution Width 13.9 % (11.0-15.0); White Blood Count 16.8 10^3/uL (4.0-11.0)
[2023-11-04] MEDS: 0.9 % SODIUM CHLORIDE 1,000 ML 1000 ML IV ×4 (08:40→14:27)
[2023-11-04] MEDS: ONDANSETRON PF 4 MG/2 ML VIAL IV ×2 (08:40→12:00)
[2023-11-04 08:45] LABS: BUN Creatinine Ratio 11.5; Carbon Dioxide 8.3 mmol/L (21.0-32.0); Chloride 89 mmol/L (98-107); Estimated GFR (African America 36 (>=60); Estimated GFR (Non-African Ame 30 (>=60); Potassium 5.3 mmol/L (3.5-5.1); Sodium 134 mmol/L (136-145)
[2023-11-04 09:01] LABS: Glucose 942 mg/dL (74-106)
--- NOTE | 2023-11-04 09:01 | ECG_ITS ---
The [facility] Test Date: 2023-11-04 Pat Name: JAYY NGUYEN Department: Room: - Gender: Female Teller: : 2000 Requested By: [id number] Order Number: [id number] Reading MD: MEKA LOMBARDO Measurements Intervals [place] Rate: 100 P: 81 MN: 130 QRS: 77 QRSD: 98 T: 67 QT: 370 QTc: 427 Interpretive Statements 1120 Sinus tachycardia 6120 Possible right atrial enlargement 9140 abnormal rhythm ECG Compared to ECG 05/14/2018 17:44:00 Sinus rhythm no longer present Sinus arrhythmia no longer present Electronically Signed On 11-04-2023 20:36:09 EDT by MEKA LOMBARDO
--- NOTE | 2023-11-04 09:01 | XR_ITS ---
The [address] [address] Patient Name: JAYY NGUYEN MRN: [id number] date: 2000 Sex: F Assigned Patient Location: ER Current Patient Location: ER Accession/Order Number: [id number] Exam Date: 11/04/2023 09:20 Report Date: 11/04/2023 09:43 At the request of: ANALI DAVIS Procedure: XR chest 1V EXAMINATION: XR chest 1V HISTORY: Hyperglycemia COMPARISON: XR chest 03/16/2015 FINDINGS: LUNGS: No significant pulmonary parenchymal abnormalities. VASCULATURE: No increased pulmonary vasculature. PLEURA: No pneumothorax, effusion, or pleural thickening. CARDIAC: No cardiomegaly or cardiac silhouette abnormality. MEDIASTINUM: No visible mass or adenopathy. BONES: No fracture or visible bone lesion. OTHER: Negative. XR/XR chest 1V IMPRESSION: 1. No acute cardiopulmonary process. Electronically authenticated by: TEMITOPE HERNANDEZ Date: 11/04/2023 09:43
[2023-11-04 09:30] LABS: PCO2 VBG 29.6 mmHg (40.0-52.0); pH VBG 7.094 (7.330-7.430)
[2023-11-04 09:52] LABS: Acetone LARGE (NEGATIVE)
[2023-11-04] MEDS: INSULIN REGULAR, HUMAN (100 UNIT/ML) 10 ML MDV 10 UNIT IV (10:00)
[2023-11-04 10:43] LABS: Estimated Average Glucose 278 mg/dL; Glycohemoglobin A1C 11.3 % (4.5-6.2)
[2023-11-04] MEDS: INSULIN REGULAR IN 0.9 % NACL 100 UNIT/100 ML PLAST..BAG 7.711 UNIT IV (11:13)
[2023-11-04 12:12] LABS: Glucometer 548 mg/dL (74-106)
--- OUTSIDE RECORDS SUMMARY | 2023-11-04 12:30 | XMS_ITS | CCD ---
Author Organization [facility] Inform ion [facility] Care Team Providers Care Quoter Name Role Phone DR TAMI ALVAREZ Admitting Unavailable ANTONIO, DR GARRETT Attending Unavailable [facility] DR FIELD Primary Care Unavailable ANTONIO, DR GARRETT Consulting Unavailable None, Physician Primary Care Provider MD Derek Baum Admit Provider [phone] MD Derek Baum Attending Provider AMANDA Buck Other Provider Unavailab MD Good Sterling Other Provider None Primary Care Unavailable Good Calderon Consulting Unavailable Derek Baum Admitting Unavailable Derek Baum Attending Unavailable Tee Buck Consulting Unavailable Services, [facility] Primary Care Provider Unavailable Primary Care Provider Unavailricha e LINDA ALDRIDGE Attending Unavailable SANDRA BHATIA Attending Unavailable LINDA ALDRIDGE Attending Unavailable SANDRA BHATIA Attending Unavailable SANDRA BHATIA Attending Unavailable FELI NGUYEN Referring Unavailable SERVICES, [facility] Care Unava ilable SERVICE, JOBST Referring Unavailable SERVICES, [facility] Primary Care Unava ilable QUINTON ARITA Attending Unavailable LINDA ALDRIDGE Referring Unavailable SERVICES, [facility] Primary Care Unava ilable SOPHIE HUDSON Admitting Unavailable SOPHIE HUDSON Attending Unavailable SERVICES, [facility] Care Unava ilable CAHRO DANIELLE Consulting Unavailable SERVICE, JOBST Referring Unavailable SERVICES, [facility] Care Unava ilable RO TABARES Attending Unavailable RO TABARES Referring Unavailable SERVICES, [facility] Unava ilable LINDA ALDRIDGE Referring Unavailable SERVICES, [facility] Unava ilable TREVA NGUYEN Attending Unavailable LINDA ALDRIDGE Referring Unavailable SERVICES, [facility] Unava ilable MAT, YESSY JENNINGS Admitting Unavail able MAT, YESSY JENNINGS Attending Unavail able SERVICES, [facility] Unava ilable CODI LEE Consulting Unavailable LOOS, LASHAE S Attending Unavailable SERVICES, [facility] Unava ilable RO TABARES Referring Unavailable SERVICES, [facility] Unava ilable FELI NGUYEN Attending Unavailable SERVICES, [facility] Unava ilable FELI NGUYEN Attending Unavailable SERVICES, [facility] Unava ilable SERVICES, [facility] Unava ilable PRIYA BRITT Attending Unavailable PRIYA BRITT Attending Unavailable PRIYA BRITT Referring Unavailable SERVICES, [facility] Unava ilable Medications Current Medications [...] Active blood-glucose meter (ONETOUCH VERIO REFLECT METER) [facility] (14 sources) Start: 08-30-2022 blood-glucose meter (ONETOUCH VERIO REFLECT METER) mis 1 Device by miscellaneous route in the morning. 1 each 1 08/30/2022 Active Blood-Glucose Sensor (Dexcom G6 Sensor) Device (2 sources) Start: 01-31-2022 Blood-Glucose Sensor (Dexcom G6 Sensor) Device Active EACH ME January 31, 2022 12:00am blood-glucose sensor (DEXCOM G7 SENSOR) device (14 sources) Start: 05-31-2022 blood-glucose sensor (DEXCOM G7 SENSOR) device Change sensor every 10 days 3 each 05/31/2022 Active Blood-Glucose Transmitter (Dexcom G6 Transmitter) Device (2 sources) Start: 01-31-2022 Blood-Glucose Transmitter (Dexcom G6 Transmitter) Device Active EACH ME January 31, 2022 12:00am doxylamine succinate 25 [...] Indications: Type 1 diabetes mellitus with hyperglycemia ([facility]) Use as directed in insulin pump up [...] diabetes mellitus with hypoglycemia and without coma ([facility]) Take 1 tablet (10 mg total) by [...] capsule 0 02/20/2023 03/20/2023 Discontinued PNV 19-IRON PS,[id number] ORAL (5 sources) End: 03-20-2023 take 1 tablet by mouth once daily PNV 19-IRON PS,[id number]-[id number] ORAL Take 1 tablet by mouth Daily at 0700. 0 03/20/2023 Discontinued take 1 tablet by mouth once jenny y PNV 19-IRON PS,[id number]-[id number] ORAL Take 1 tablet by mouth Daily [...] Ehsan Johnson MD on 08/21/2023 7:28 AM [facility] XR WRIST RT MIN 3 VWSon 08-05 [...] Johnson MD on 08/21/2023 7:27 AM Normal [facility] POCT Hemoglobin A1con 2023 HbA1c (Bld) [Mass fraction] 6.8 g/dL 4 - 7 g/dL [facility] Glucose Glucometer (BldC) [M ass/Vol]on 02-20-2023 Glucose [Mass/Vol] 162 mg/dL High 65-99 [facility] Glucose [Mass/Vol] 133 mg/dL High 65-99 [facility] Glucose Glucometer (BldC) [M ass/Vol]on 02-19-2023 Glucose [Mass/Vol] 141 mg/dL High 65-99 [facility] Glucose [Mass/Vol] 164 mg/dL High 65-99 [facility] Glucose [Mass/Vol] 136 mg/dL High 65-99 [facility] Glucose [Mass/Vol] 131 mg/dL High 65-99 [facility] Glucose [Mass/Vol] 186 mg/dL High 65-99 [facility] Glucose [Mass/Vol] 265 mg/dL High 65-99 [facility] Glucose Glucometer (BldC) [M ass/Vol]on 02-18-2023 Glucose [Mass/Vol] 93 mg/dL Normal 65-99 [facility] Glucose [Mass/Vol] 88 mg/dL Normal 65-99 [facility] Glucose [Mass/Vol] 133 mg/dL High 65-99 [facility] Glucose [Mass/Vol] 76 mg/dL Normal 65-99 [facility] Glucose [Mass/Vol] 49 mg/dL Critically low 65-99 [facility] Glucose [Mass/Vol] 48 mg/dL Critically low 65-99 [facility] CBC AND AUTO DIFFon 02-17-19 24 ABSOLUTE BASOPHIL 0.2 X10E9/L Normal 0.0-0.2 [facility] Comment on above: Performed By: #### C BCA ####[facility] ([id number])[address] [place] [address] ABSOLUTE NEUTROPHIL 13.3 X10E9/L High 1.5-6.6 [facility] Comment on above: Performed By: #### C BCA ####[facility] ([id number])[address], [address], [place] [address] Basophils/100 WBC (Bld) 1.0 % Normal [facility] Comment on above: Performed By: #### C BCA ####[facility] ([id number])[address] [address], [place] [address] Eosinophils (Bld) [#/Vol] 0.1 10*3/uL Normal 0.0-0.4 [facility] Comment on above: Performed By: #### C BCA ####[facility] ([id number])[address] [address], [place] [address] Eosinophils/100 WBC (Bld) 0.4 % Normal [facility] Comment on above: Performed By: #### C BCA ####[facility] ([id number])[address] [address], [place] [address] Erythrocyte distribution width (RBC) [Ratio] 13.4 % Normal 11.5-15.0 [facility] Comment on above: Performed By: #### C BCA ####[facility] ([id number])[address] [address] [place] [address] Hematocrit (Bld) [Volume fraction] 29.1 % Low 35-47 [facility] Comment on above: Performed By: #### C BCA ####[facility] ([id number])[address], [place] [address] Hemoglobin (Bld) [Mass/Vol] 10.1 g/dL Low 11.7-15.5 [facility] Comment on above: Performed By: #### C BCA ####[facility] ([id number])[address], [place] [address] Lymphocytes (Bld) [#/Vol] 2.0 10*3/uL Normal 1.0-3.5 [facility] Comment on above: Performed By: #### C BCA ####[facility] ([id number])[address] [address] [place] [address] Lymphocytes/100 WBC (Bld) 12.4 % Normal [facility] Comment on above: Performed By: #### C BCA ####[facility] ([id number])[address] [address] [place] [address] MCH (RBC) [Entitic mass] 27.6 pg Normal 27-34 [facility] Comment on above: Performed By: #### C BCA ####[facility] ([id number])[address] [address] [place] [address] MCHC (RBC) [Mass/Vol] 34.8 g/dL Normal 32-36 [facility] Comment on above: Performed By: #### C BCA ####[facility] ([id number])[address] [address] [place] [address] MCV (RBC) [Entitic vol] 79 fL Low 80-100 P [facility] Comment on above: Performed By: #### C BCA ####[facility] ([id number])[address] [address] [place] [address] Monocytes (Bld) [#/Vol] 0.9 10*3/uL Normal 0-0.9 [facility] Comment on above: Performed By: #### C BCA ####[facility] ([id number])[address], [place] [address] Monocytes/100 WBC (Bld) 5.6 % Normal P [facility] Comment on above: Performed By: #### C BCA ####[facility] ([id number])[address], [place] [address] Neutrophils/100 WBC (Bld) 80.6 % Normal [facility] Comment on above: Performed By: #### C BCA ####[facility] ([id number])[address], [place] [address] Platelet mean volume (Bld) [Entitic vol] 9.5 fL Normal 7-12 [facility] Comment on above: Performed By: #### C BCA ####[facility] ([id number])[address] [address], [place] [address] Platelets (Bld) [#/Vol] 224 10*3/uL Normal 150-450 [facility] Comment on above: Performed By: #### C BCA ####[facility] ([id number])[address], [place] [address] RBC COUNT 3.67 X10E12/L Low 3.80-5.20 [facility] Comment on above: Performed By: #### C BCA ####[facility] ([id number])[address] [address], [place] [address] WBC (Bld) [#/Vol] 16.5 10*3/uL High 4.0-11.0 [facility] Comment on above: Performed By: #### C BCA ####[facility] ([id number])[address], [place] [address] Glucose Glucometer (BldC) [M ass/Vol]on 02-17-2023 Glucose [Mass/Vol] 201 mg/dL High 65-99 [facility] Glucose [Mass/Vol] 147 mg/dL High 65-99 [facility] Glucose [Mass/Vol] 166 mg/dL High 65-99 [facility] Glucose [Mass/Vol] 115 mg/dL High 65-99 [facility] Glucose [Mass/Vol] 158 mg/dL High 65-99 [facility] CHLAMYDIA/GC PCR, Uon 2023 CHLAMYDIA/GC PCR, [...] are dependent on adequate specimen collection. Normal [facility] Comment on above: Performed By: #### Makenzie ####[facility] ([id number])[address] [address] COMPLETE BLOOD COUNTon 02-16 Erythrocyte distribution width (RBC) [Ratio] 13.7 % Normal 11.5-15.0 [facility] Comment on above: Performed By: #### Makenzie PARADA, 93571-5 ####[facility] ([id number])[address] [address] Hematocrit (Bld) [Volume fraction] 33.5 % Low 35-47 [facility] Comment on above: Performed By: #### Makenzie PARADA, 64778-2 ####[facility] ([id number])[address] [address] Hemoglobin (Bld) [Mass/Vol] 11.9 g/dL Normal 11.7-15.5 [facility] Comment on above: Performed By: #### Makenzie PARADA, 58256-8 ####[facility] ([id number])[address] [address] MCH (RBC) [Entitic mass] 27.4 pg Normal 27-34 [facility] Comment on above: Performed By: #### Makenzie PARADA, 93506-3 ####[facility] ([id number])[address], [place] [address] MCHC (RBC) [Mass/Vol] 35.5 g/dL Normal 32-36 [facility] Comment on above: Performed By: #### Makenzie PARADA, 20521-1 ####[facility] ([id number])[address] [address], [place] [address] MCV (RBC) [Entitic vol] 77 fL Low 80-100 P [facility] Comment on above: Performed By: #### Makenzie PARADA, 77224-8 ####[facility] ([id number])[address] [address], [place] [address] Platelet mean volume (Bld) [Entitic vol] 9.4 fL Normal 7-12 [facility] Comment on above: Performed By: #### Makenzie PARADA, 04608-2 ####[facility] ([id number])[address] [address] [place] [address] Platelets (Bld) [#/Vol] 237 10*3/uL Normal 150-450 [facility] Comment on above: Performed By: #### Makenzie PARADA, 47716-8 ####[facility] ([id number])[address] [address] [place] [address] RBC COUNT 4.35 X10E12/L Normal 3.80-5.20 [facility] Comment on above: Performed By: #### Makenzie PARADA, 29508-6 ####[facility] ([id number])[address] [address], [place] [address] WBC (Bld) [#/Vol] 18.3 10*3/uL High 4.0-11.0 [facility] Comment on above: Performed By: #### C , 27451-9 ####[facility] ([id number])[address], [address] [place] [address] DRUG SCREEN, URINEon 024 AMPHETAMINE/METHAMP Negative Normal NEG [facility] Comment on above: Result Comment: AMPH /METH screening cut off = 1000 ng/mL Performed By: #### D CARREON ####[facility] ([id number])[address], [address] [place] [address] BARBITURATES Negative Normal NEG [facility] Comment on above: Result Comment: Lorena iturates screening cut off value = 200 ng/mL Performed By: #### D CARREON ####[facility] ([id number])[address], [address] [place] [address] BENZODIAZEPINES Negative Normal NEG [facility] Comment on above: Result Comment: See odiazepines screening cut off value = 200 ng/mL Performed By: #### D CARREON ####[facility] ([id number])[address], [address] [place] [address] CANNABINOIDS Negative Normal NEG [facility] Comment on above: Result Comment: Sandra abinoids/THC screening cut off value = 50 ng/mL Performed By: #### D CARREON ####[facility] ([id number])[address], [address] [place] [address] COCAINE METABOLITE Negative Normal NEG [facility] Comment on above: Result Comment: Coca ine screening cut off value = 300 ng/mL Performed By: #### D CARREON ####[facility] ([id number])[address], [address] [place] [address] ECSTASY Negative Normal NEG [facility] Comment on above: Result Comment: Ecst asy screening cut off value = 500 ng/mL This report is intended for use in clinical monitoring or management of patients. Performed By: #### D CARREON ####[facility] ([id number])[address], [address] [place] [address] METHADONE Negative Normal NEG [facility] Comment on above: Result Comment: Meth adone screening cut off value = 300 ng/mL. Performed By: #### D CARREON ####[facility] ([id number])[address], [address] [place] [address] OPIATES Negative Normal NEG [facility] Comment on above: Result Comment: Opia shelly screening cut off value = 300 ng/mL NOTE: This test is used for the detection of codeine, hydrocodone (>1000 ng/mL), morphine and hydromorphone (>900 ng/mL) in urine. Performed By: #### D CARREON ####[facility] ([id number])0 [facility] [address] [place] [address] OXYCODONE Negative Normal NEG [facility] Comment on above: Result Comment: Oxyc odone screening cut off value = 300 ng/mL NOTE: This test is used for the detection of oxycodone and oxymorphone in urine. Performed By: #### D CARREON ####[facility] ([id number])[address], [address] [place] [address] PHENCYCLIDINE Negative Normal NEG [facility] Comment on above: Result Comment: Phen cyclidine screening cut off value = 25 ng/mL Performed By: #### D CARREON ####[facility] ([id number])[address], [address] [place] [address] Glucose Glucometer (BldC) [M ass/Vol]on 02-16-2023 Glucose [Mass/Vol] 221 mg/dL High 65-99 [facility] T. pallidum IgG+IgM IA Ql (S )on 02-16-2023 Syphilis Total 0.2 AI Normal 0.0-0.8 [facility] Comment on above: Result Comment: NON REACTIVE No serologic evidence of infection to Treponema pallidum (syphilis). Repeat testing may be considered in patients with suspected acute or primary syphilis in 2 to 4 weeks. Performed By: #### C , 05893-5 ####[facility] ([id number])[address] [place] [address], [address] [place] [address] Glucose Glucometer (BldC) [M ass/Vol]on 02-10-2023 Glucose [Mass/Vol] 89 mg/dL Normal 65-99 [facility] Glucose [Mass/Vol] 107 mg/dL High 65-99 [facility] Glucose [Mass/Vol] 70 mg/dL Normal 65-99 [facility] Glucose [Mass/Vol] 85 mg/dL Normal 65-99 [facility] Glucose [Mass/Vol] 59 mg/dL Low 65-99 [facility] Glucose [Mass/Vol] 42 mg/dL Critically low 65-[address] Glucose [Mass/Vol] 131 mg/dL High 65-99 [facility] Glucose Glucometer (BldC) [M ass/Vol]on 02-09-2023 Glucose [Mass/Vol] 206 mg/dL High 65-99 [facility] Glucose [Mass/Vol] 117 mg/dL High 65-99 [facility] Glucose [Mass/Vol] 113 mg/dL High 65-99 [facility] Glucose Glucometer (BldC) [M ass/Vol]on 02-08-2023 Glucose [Mass/Vol] 134 mg/dL High 65-99 [facility] Glucose [Mass/Vol] 162 mg/dL High 65-99 [facility] Glucose [Mass/Vol] 152 mg/dL High 65-99 [facility] Glucose [Mass/Vol] 73 mg/dL Normal 65-99 [facility] Glucose Glucometer (BldC) [M ass/Vol]on 02-07-2023 Glucose [Mass/Vol] 156 mg/dL High 65-99 [facility] Glucose [Mass/Vol] 118 mg/dL High 65-99 [facility] Glucose [Mass/Vol] 145 mg/dL High 65-99 [facility] Glucose [Mass/Vol] 119 mg/dL High 65-99 [facility] Glucose [Mass/Vol] 54 mg/dL Low 65-99 [facility] Glucose [Mass/Vol] 50 mg/dL Critically low 65-99 [facility] STREP B SCREEN CULTUREon S. agalactiae Org specific cx Ql (Vag+Rectum) CULTURE RESULTS NEGATIVE FOR GROUP B STREPTOCOCCUS BY NUCLEIC ACID AMPLIFICATION Normal [facility] Comment on above: Performed By: #### C BCA, 6873-4, CMP #### [facility] ([id number]) [address] [facility], [address] [place] [address] Glucose Glucometer (BldC) [M ass/Vol]on 02-06-2023 Glucose [Mass/Vol] 86 mg/dL Normal 65-99 [facility] Glucose [Mass/Vol] 116 mg/dL High 65-99 [facility] Glucose [Mass/Vol] 137 mg/dL High 65-99 [facility] Glucose [Mass/Vol] 220 mg/dL High 65-99 [facility] Glucose [Mass/Vol] 94 mg/dL Normal 65-99 [facility] Glucose [Mass/Vol] 47 mg/dL Critically low 65-99 [facility] Glucose [Mass/Vol] 39 mg/dL Critically low 65-99 [facility] Glucose Glucometer (BldC) [M ass/Vol]on 02-05-2023 Glucose [Mass/Vol] 155 mg/dL High 65-99 [facility] Glucose [Mass/Vol] 103 mg/dL High 65-99 [facility] Glucose [Mass/Vol] 84 mg/dL Normal 65-99 [facility] Glucose [Mass/Vol] 92 mg/dL Normal 65-99 [facility] Glucose [Mass/Vol] 61 mg/dL Low 65-99 [facility] Glucose [Mass/Vol] 50 mg/dL Critically low 65-99 [facility] Glucose Glucometer (BldC) [M ass/Vol]on [...] Glucose [Mass/Vol] 105 mg/dL High 65-99 [facility] Glucose Glucometer (BldC) [M [...] Glucose [Mass/Vol] 188 mg/dL High 65-99 [facility] POTASSIUMon 02-02-2023 Potassium [Moles/Vol] 4.0 mmol/L Normal 3.5-5.0 [facility] Comment on above: Performed By: #### 2 823-3 ####[facility] ([id number])[address], [address] [place] [address] Potassium [Moles/Vol] 3.6 mmol/L Normal 3.5-5.0 [facility] Comment on above: Performed By: #### 2 823-3 #### [facility] ([id number]) [address], [address] [place] [address] [place] [address] Beta hydroxybutyrate [Moles/ Vol]on 02-01-2023 BetaHydroxybutyrate 0.80 mmol/L High 0.02-0.27 [facility] Comment on above: Performed By: #### Makenzie STEIN, 6873-4, CMP #### [facility] ([id number]) [address] [place] [address] CBC AND AUTO DIFFon 02-02-20 ABSOLUTE BASOPHIL 0.0 X10E9/L Normal 0.0-0.2 [facility] Comment on above: Performed By: #### Makenzie STEIN, 6873-4, CMP #### [facility] ([id number]) [address], [facility] [address] [place] [address] ABSOLUTE NEUTROPHIL 11.4 X10E9/L High 1.5-6.6 [facility] Comment on above: Performed By: #### Makenzie STEIN 6873-4, CMP #### [facility] ([id number]) [address] [place] [address] Basophils/100 WBC (Bld) 0.2 % Normal [facility] Comment on above: Performed By: #### Makenzie STEIN, 6873-4, CMP #### [facility] ([id number]) [address] [place] [address] Eosinophils (Bld) [#/Vol] 0.1 10*3/uL Normal 0.0-0.4 [facility] Comment on above: Performed By: #### Makenzie STEIN 6873-4, CMP #### [facility] ([id number]) [address] [place] [address] Eosinophils/100 WBC (Bld) 0.4 % Normal [facility] Comment on above: Performed By: #### Makenzie STEIN, 6873-4, CMP #### [facility] ([id number]) [address] [place] [address] Erythrocyte distribution width (RBC) [Ratio] 13.5 % Normal 11.5-15.0 [facility] Comment on above: Performed By: #### Makenzie STEIN 6873-4, CMP #### [facility] ([id number]) [address] [address] [place] [address] Hematocrit (Bld) [Volume fraction] 33.0 % Low 35-47 [facility] Comment on above: Performed By: #### Makenzie STEIN 6873-4, CMP #### [facility] ([id number]) [address], [facility] [address] [place] [address] Hemoglobin (Bld) [Mass/Vol] 11.5 g/dL Low 11.7-15.5 [facility] Comment on above: Performed By: #### Makenzie STEIN 6873-4, CMP #### [facility] ([id number]) [address] [address] [place] [address] Lymphocytes (Bld) [#/Vol] 1.2 10*3/uL Normal 1.0-3.5 [facility] Comment on above: Performed By: #### Makenzie STEIN 6873-4, CMP #### [facility] ([id number]) [address] [address] [place] [address] Lymphocytes/100 WBC (Bld) 8.7 % Normal [facility] Comment on above: Performed By: #### Makenzie STEIN 6873-4, CMP #### [facility] ([id number]) [address], [facility] [address] [place] [address] MCH (RBC) [Entitic mass] 27.6 pg Normal 27-34 [facility] Comment on above: Performed By: #### Makenzie STEIN 6873-4, CMP #### [facility] ([id number]) [address], [facility] [address] [place] [address] MCHC (RBC) [Mass/Vol] 34.8 g/dL Normal 32-36 [facility] Comment on above: Performed By: #### Makenzie STEIN 6873-4, CMP #### [facility] ([id number]) [address] [place] [address] MCV (RBC) [Entitic vol] 79 fL Low 80-100 P [facility] Comment on above: Performed By: #### Makenzie STEIN 6873-4, CMP #### [facility] ([id number]) [address] [place] [address] Monocytes (Bld) [#/Vol] 0.6 10*3/uL Normal 0-0.9 [facility] Comment on above: Performed By: #### Makenzie STEIN 6873-4, CMP #### [facility] ([id number]) [address] [place] [address] Monocytes/100 WBC (Bld) 4.5 % Normal [facility] Comment on above: Performed By: #### Makenzie STEIN 6873-4, CMP #### [facility] ([id number]) [address] [place] [address] Neutrophils/100 WBC (Bld) 86.2 % Normal [facility] Comment on above: Performed By: #### Makenzie STEIN 6873-4, CMP #### [facility] ([id number]) [address] [place] [address] Platelet mean volume (Bld) [Entitic vol] 9.4 fL Normal 7-12 [facility] Comment on above: Performed By: #### Makenzie STEIN 6873-4, CMP #### [facility] ([id number]) [address] [place] [address] Platelets (Bld) [#/Vol] 211 10*3/uL Normal 150-450 [facility] Comment on above: Performed By: #### Makenzie STEIN, 6873-4, CMP #### [facility] ([id number]) [address] [place] [address] RBC COUNT 4.16 X10E12/L Normal 3.80-5.20 [facility] Comment on above: Performed By: #### Makenzie STEIN 6873-4, CMP #### [facility] ([id number]) [address] [place] [address] WBC (Bld) [#/Vol] 13.2 10*3/uL High 4.0-11.0 [facility] Comment on above: Performed By: #### Makenzie STEIN, 6873-4, CMP #### [facility] ([id number]) [address] [place] [address] COMPREHENSIVE METABOLIC PANE [facility] 02-01-2023 Albumin [Mass/Vol] 3.3 g/dL Normal 3.2-5.3 [facility] Comment on above: Performed By: #### Makenzie STEIN 6873-4, CMP #### [facility] ([id number]) [address] [place] [address] ALP [Catalytic activity/Vol] 127 U/L Normal 39-130 [facility] Comment on above: Performed By: #### Makenzie STENI 6873-4, CMP #### [facility] ([id number]) [address] [place] [address] ALT [Catalytic activity/Vol] 13 U/L Normal 0-31 [facility] Comment on above: Performed By: #### Makenzie STEIN 6873-4, CMP #### [facility] ([id number]) [address] [place] [address] Anion gap [Moles/Vol] 9 mmol/L Normal 5-15 [facility] Comment on above: Performed By: #### Makenzie STEIN 6873-4, CMP #### [facility] ([id number]) [address] [place] [address] AST [Catalytic activity/Vol] 19 U/L Normal 0-41 [facility] Comment on above: Performed By: #### C SARITA, 6873-4, CMP #### [facility] ([id number]) [address] [place] [address] Bilirubin [Mass/Vol] 0.7 mg/dL Normal 0.3-1.2 [facility] Comment on above: Performed By: #### Makenzie STEIN 6873-4, CMP #### [facility] ([id number]) [address] [place] [address] Calcium [Mass/Vol] 8.1 mg/dL Low 8.5-10.5 [facility] Comment on above: Performed By: #### Makenzie STEIN 6873-4, CMP #### [facility] ([id number]) [address] [place] [address] Chloride [Moles/Vol] 103 mmol/L Normal 98-109 [facility] Comment on above: Performed By: #### Makenzie STEIN, 6873-4, CMP #### [facility] ([id number]) [address] [place] [address] CO2 [Moles/Vol] 22 mmol/L Normal 22-32 [facility] Comment on above: Performed By: #### Makenzie STEIN, 6873-4, CMP #### [facility] ([id number]) [address] [place] [address] Creatinine [Mass/Vol] 0.58 mg/dL Normal 0.40-1.00 [facility] Comment on above: Result Comment: METH OD TRACEABLE TO IDMS STANDARD Performed By: #### Makenzie STEIN, 6873-4, CMP #### [facility] ([id number]) [address] [address] [place] [address] eGFR (CKD-EPI) NON-RACE DEPENDENT >90 Normal >59 [facility] Comment on above: Result Comment: Reported eGFR is based on the CKD-EPI 2020 equation that does not use a race coefficient. Performed By: #### C SARITA, 6873-4, CMP #### [facility] ([id number]) [address] [address] [place] [address] Glucose [Mass/Vol] 158 mg/dL High 65-99 [facility] Comment on above: Performed By: #### Makenzie STEIN, 6873-4, CMP #### [facility] ([id number]) [address] [address] Potassium [Moles/Vol] 3.3 mmol/L Low 3.5-5.0 [facility] Comment on above: Performed By: #### Makenzie STEIN, 6873-4, CMP #### [facility] ([id number]) [address] [address] Protein [Mass/Vol] 6.2 g/dL Normal 6.0-8.0 [facility] Comment on above: Performed By: #### Makenzie STEIN, 6873-4, CMP #### [facility] ([id number]) [address] [address] Sodium [Moles/Vol] 134 mmol/L Normal 134-146 [facility] Comment on above: Performed By: #### C BCA, 6873-4, CMP #### [facility] ([id number]) [address] [address] Urea nitrogen [Mass/Vol] 9 mg/dL Normal 5-23 [facility] Comment on above: Performed By: #### Makenzie BCA, 6873-4, CMP #### [facility] ([id number]) [address] [place] [place] [address] Glucose Glucometer (BldC) [M ass/Vol]on 02-01-2023 Glucose [Mass/Vol] 153 mg/dL High 65-99 [facility] URINALYSISon 02-01-2023 Bilirubin Ql (U) Negative Normal NEG [facility] BLOOD/HGB Negative Normal NEG [facility] Color (U) YELLOW Normal YELLOW [facility] Glucose Ql (U) 1000 mg/dL Abnormal NEG [facility] Ketones Ql (U) 150 mg/dL Abnormal NEG [facility] Leukocyte esterase Test strip Ql (U) Negative Normal NEG [facility] Comment on above: Result Comment: HIGH CONCENTRATIONS OF GLUCOSE MAY DECREASE THE REACTIVITY OF THE DIPSTICK LEUKOCYTE TEST PAD. MUCOUS PRESENT Abnormal NONE [facility] Nitrite Ql (U) Negative Normal NEG [facility] pH (U) 6.0 [pH] Normal 5.0-8.5 [facility] Protein Ql (U) 30 mg/dL Abnormal NEG [facility] R.B.CELLS 1 /hpf Normal 0-5 [facility] Specific gravity (U) [Rel density] 1.030 Normal 1.003-1.035 [facility] SQUAMOUS EPITHELIUM 2 /hpf Normal 0-5 [facility] TURBIDITY CLEAR Normal CLEAR [facility] Urobilinogen (U) [Mass/Vol] mg/dL Normal <1.1 [facility] W.B.CELLS 4 /hpf Normal 0-5 [facility] Albumin [Mass/volume] in Ser um or Plasmaon 02-01-2022 Albumin [Mass/Vol] 3.5 g/dL 3.5-5.0 [facility] Work Phone: Basic Metabolic,Non-Fastingo n 02-01-2022 Anion gap [Moles/Vol] 7 mmol/L Normal 4-12 [facility] Comment on above: Performed By: #### L 400.9172, L400.2200, L400.9270 #### Main Laboratory ([facility]) [address] [place] [address] Bjorn Washington MD Calcium [Mass/Vol] 8.20 mg/dL Low 8.8-10.5 [facility] Comment on above: Performed By: #### L 400.0202, L400.2200, L400.4800 #### [facility] ([facility]) [address] [place] [address] Bjorn Washington MD Chloride [Moles/Vol] 103 mmol/L Normal 101-111 [facility] Comment on above: Performed By: #### L 400.0202, L400.2200, L400.4800 #### [facility] ([facility]) [address] [place] [id number] Bjorn Washington MD CO2 [Moles/Vol] 23 mmol/L Invalid Interpretation Code 21-32 [facility] Comment on above: Result Comment: Delt a: 17 on 02/01/22 Performed By: #### L 400.0202, L400.2200, L400.4800 #### [facility] ([facility]) [address] [place] [address] Bjorn Washington MD Creatinine [Mass/Vol] 0.56 mg/dL Low 0.60-1.30 [facility] Comment on above: Performed By: #### L 400.0202, L400.2200, L400.4800 #### [facility] ([facility]) [address] [place] [id number] Bjorn Washington MD GFR Calculation > 60 Normal [facility] Comment on above: Result Comment: Vice President Research mau Kidney Disease stages by NKDF Stage eGFR I >90 II 60-89 III 30-59 IV 15-29 V <15 or dialysis AGE(years) AVERAGE GFR 20-29 116 ml/min/1.73 square meters Note:This result is normalized to 1.73 square meter body surface area. Height and weight are not factored. Performed By: #### L 400.0202, L400.2200, L400.4800 #### [facility] ([facility]) [address] [place] [address] Bjorn Washington MD Glucose [Mass/Vol] 224 mg/dL High 70-110 [facility] Comment on above: Performed By: #### L 400.0202, L400.2200, L400.4800 #### [facility] ([facility]) [address] [place] [address] Bjorn Washington MD Potassium [Moles/Vol] 4.0 mmol/L Normal 3.6-5.0 [facility] Comment on above: Performed By: #### L 400.0202, L400.2200, L400.4800 #### [facility] ([facility]) [address] [place] [address] Bjorn Washington MD Sodium [Moles/Vol] 133 mmol/L Low 135-145 [facility] Comment on above: Performed By: #### L 400.0202, L400.2200, L400.4800 #### [facility] ([facility]) [address] [place] [address] Bojrn Washington MD Urea nitrogen [Mass/Vol] 3 mg/dL Low 7-20 [facility] Comment on above: Performed By: #### L 400.0202, L400.2200, L400.4800 #### [facility] ([facility]) [address] [place] [address] Bjorn Washington MD Basophils Auto (Bld) [#/Vol] on 02-01-2022 Basophils (Bld) [#/Vol] 0 /cmm 0-200 L [facility] Work Phone: Basophils/100 WBC Auto (Bld) on 02-01-2022 Basophils/100 WBC (Bld) 0.4 % 0-2 L [facility] Work Phone: Blood anion gapon 02-01-2022 Anion gap (Bld) [Moles/Vol] 7 mmol/L 4-12 [facility] Work Phone: Blood coagulation panelon Blood coagulation panel 100 /cmm 0-500 L [facility] Work Phone: Blood hematocrit (volume fra ction)on 02-01-2022 Hematocrit (Bld) [Volume fraction] 35.9 % 35.0-44.0 [facility] Work Phone: Blood hemoglobin measurement (mass/volume)on 02-01-2022 Hemoglobin (Bld) [Mass/Vol] 13.0 g/dL 12.0-15.0 [facility] Work Phone: CBC with Differentialon 01-06 Abs Baso Count 0 /cmm Normal 0-200 [facility] Comment on above: Performed By: #### L 400.0202, L400.2200, L400.4800 #### Main [facility] ([facility]) [address] [place] [address] Bjorn Washington MD Abs Eos Count 100 /cmm Normal 0-500 [facility] Comment on above: Performed By: #### L 400.0202, L400.2200, L400.4800 #### Main [facility] ([facility]) [address] [place] [address] Bjorn Washington MD Abs Lymph Count 2100 /cmm Normal 8996-3683 [facility] Comment on above: Performed By: #### L 400.0202, L400.2200, L400.4800 #### Main [facility] ([facility]) [address] [place] [address] Bjorn Washington MD Abs Hocking Count 600 /cmm Normal 0-800 [facility] Comment on above: Performed By: #### L 400.0202, L400.2200, L400.4800 #### Main [facility] ([facility]) [address] [place], [facility] Bjorn Washington MD Abs Neut Count 8100 /cmm High 4610-9292 [facility] Comment on above: Performed By: #### L 400.0202, L400.2200, L400.4800 #### Main [facility] ([facility]) [address] [place], [facility] Bjorn Washington MD Basophils/100 WBC (Bld) 0.4 % Normal 0-2 L [facility] Comment on above: Performed By: #### L 400.0202, L400.2200, L400.4800 #### Main [facility] ([facility]) [address] [place], [facility] Bjorn Washington MD EOS-Auto Diff 0.6 % Normal 0-6 [facility] Comment on above: Performed By: #### L 400.0202, L400.2200, L400.4800 #### [facility] ([facility]) [address] [place] [id number] Bjorn Washington MD Erythrocyte distribution width (RBC) [Ratio] 14.2 % Normal 12.0-16.0 [facility] Comment on above: Performed By: #### L 400.0202, L400.2200, L400.4800 #### Main [facility] ([facility]) [address] [place], [facility] Bjorn Washington MD Hematocrit (Bld) [Volume fraction] 35.9 % Normal 35.0-44.0 [facility] Comment on above: Performed By: #### L 400.0202, L400.2200, L400.4800 #### [facility] ([facility]) [address] [place] [address] Bjorn Washington MD Hemoglobin (Bld) [Mass/Vol] 13.0 g/dL Normal 12.0-15.0 [facility] Comment on above: Performed By: #### L 400.0202, L400.2200, L400.4800 #### Main [facility] ([facility]) [address] [place] [address] Bjorn Washington MD Lymphocytes/100 WBC (Bld) 19.2 % Invalid Interpretation Code 15-45 [facility] Comment on above: Result Comment: Delt a: 6.1 on 01/31/22 Performed By: #### L 400.0202, L400.2200, L400.4800 #### [facility] ([facility]) [address] [place] [address] Bjorn Washington MD MCH (RBC) [Entitic mass] 27.5 pg Normal 27.5-33.0 [facility] Comment on above: Performed By: #### L 400.0202, L400.2200, L400.4800 #### [facility] ([facility]) [address] [place] [address] Bjorn Washington MD MCHC (RBC) [Mass/Vol] 35.7 g/dL Normal 33.0-36.0 [facility] Comment on above: Performed By: #### L 400.0202, L400.2200, L400.4800 #### [facility] ([facility]) [address] [place] [address] Bjorn Washington MD MCV 77.0 CU ANDREW Low 80-97 [facility] Comment on above: Performed By: #### L 400.0202, L400.2200, L400.4800 #### Main [facility] ([facility]) [address] [place] [id number] Bjorn Washington MD Hocking- Auto Diff 5.6 % Normal 2-10 [facility] Comment on above: Performed By: #### L 400.0202, L400.2200, L400.4800 #### Main [facility] ([facility]) [address] [place] [address] Bjorn Washington MD Neut-Auto Diff 74.2 % High 40-70 [facility] Comment on above: Performed By: #### L 400.0202, L400.2200, L400.4800 #### [facility] ([facility]) [address] [place] [address] Bjorn Washington MD NRBC-Auto 0.1 /100 WBC Normal <1 [facility] Comment on above: Performed By: #### L 400.0202, L400.2200, L400.4800 #### Main [facility] ([facility]) [address] [place] [address] Bjorn Washington MD Platelet Count 249 th/cmm Normal 150-400 [facility] Comment on above: Performed By: #### L 400.0202, L400.2200, L400.4800 #### Main [facility] ([facility]) [address] [place] [address] Bjorn Washington MD RBC 4.66 mil/cmm Normal 4.00-5.10 [facility] Comment on above: Performed By: #### L 400.0202, L400.2200, L400.4800 #### Main [facility] ([facility]) [address] [place] [id number] Bjorn Washington MD WBC 10.9 th/cmm High 4.4-10.5 [facility] Comment on above: Performed By: #### L 400.0202, L400.2200, L400.4800 #### Main [facility] ([facility]) [address] [place] [address] Bjorn Washington MD Case Management Admissionon 02-01-2022 Case Management Admission [facility] Case Management Patient: SAVI NGUYEN [address] : [address] [place] [address] Location: ICU [phone] [id number] Management Admission Nancy Huntley RN Service Date: 01/31/22 Case Mgmt Admission/Disch Plan - Patient Preferences AND Goals What is the patient's preference?: Services to be Determined Recommended acute discharge goals: Services to be Determined - Hospital Stay Day Day 1 Comment: 01/31/22 Pt is here for DKA/sepsis. Patient is type I diabetic. Pt has [employer] insurance. Awaiting ENT consulted for mouth abcess. Pt lives with her significant other and daughter. Pt is independent with ADLs and drives. Pt on Augmentin. Pt reports she has all supplies at home to manage DM including cont reader and insulin pump. Patient did not report a PCP but states she goes not [facility] in [place]. Vp Legal Affairs: Nancy Huntley, RN Day 2 Comment: 02/01/22 Pt drowsy and fallimng asleep during conversation with CM during CM rounding, patient denies any homegoing service/dme needs at this time including HHC. Vp Legal Affairs: Nancy Huntley, RN - Demographics Current Diagnosis(s): DKA. Sepsis Information Given by: Patient Primary Insurance: [employer] Secondary Insurance: [employer] Prescription Coverage: Yes Family/Caregiver Contact: Mi Nguyen Relationship: mother Does the patient have VA services?: No Does the patient have a [facility] provider?: No - Readmission Information Was the patient readmitted within the past 30 days?: No Where was the patient admitted from?: Home Does Patient have any Services in Place?: No - Healthcare Decisions Code Status Per Patient Request (Full Code, DNRCC, DNRCCA): Full Code Durable Power of Occupational Health And Safety Manager for Health Care: No Directive, No SS Referral [facility] DNR Comfort Care: No Directive, No SS Referral [facility] DNR Comfort Care Arrest: No Directive, No SS Referral - Mental Status Prior Mental Status: Alert and Oriented Current Mental Status: Alert and Oriented - Living Situation Home Situation: Lives with Significant Other Home Type: Single Family Home Does the patient drive?: Yes - Support System Support System: Relatives, Friends - Skilled Days Has patient been in a fpc facility in past 60 days: No Have [...] No If Yes to either question, notify Hand Hide Stretcher.: No - Discharge Plan Discharge Plan Discussed [...] Entered by: Nancy Huntley RN on 01/31/22 7754 Report Signed by: Nancy Huntley RN on 02/01/22 1358 < > Co-Signed by: on Normal [facility] Case Management Daily Noteon 02-01-2022 Case Management Daily Note [facility] Case Management Patient: SAVI NGUYEN. : [address] [place], [place] [address] Location: ICU [phone] Unit #: [id number] Case Management Daily Note Nancy Huntley RN Service Date: 02/01/22 Case Mgmt Daily Note - Plan of Care Vp Legal Affairs Agrees with Attending and Consult Plan: Yes - Patient Preferences AND Goals What is the patient's preference?: Return Home, No Services Recommended acute discharge goals: Return Home, No Services - Hospital Stay Days Day 1 Comment: 01/31/22 Pt is here for DKA/sepsis. Patient is type I diabetic. Pt has [employer] insurance. Awaiting ENT consulted for mouth abcess. Pt lives with her significant other and daughter. Pt is independent with ADLs and drives. Pt on Augmentin. Pt reports she has all supplies at home to manage DM including cont reader and insulin pump. Patient did not report a PCP but states she goes not [facility] in [place]. Vp Legal Affairs: Nancy Huntley, RN Day 2 Comment: 02/01/22 Pt drowsy and fallimng asleep during conversation with CM during CM rounding, patient denies any homegoing service/dme needs at this time including HHC. Vp Legal Affairs: Nancy Huntley, RN - Transportation Mode of [...] 1409 < > Co-Signed by: on Normal [facility] Comprehensive Metabolic Pane leonila 02-01-2022 Albumin [Mass/Vol] 3.5 g/dL Normal 3.5-5.0 [facility] Comment on above: Performed By: #### L 702.1000 #### Main Laboratory ([facility]) [address] [place] [address] Bjorn Washington MD Albumin/Globulin [Mass ratio] 1.3 {ratio} Low 1.5-2.5 [facility] Comment on above: Performed By: #### L 702.1000 #### Main Laboratory ([facility]) [address] [place] [address] Bjorn Washington MD Alk Phos 74 IU/L Normal 39-118 [facility] Comment on above: Performed By: #### L 702.1000 #### Main Laboratory ([facility]) [address] [place] [address] Bjorn Washington MD ALT [Catalytic activity/Vol] 8 U/L Low 10-40 [facility] Comment on above: Performed By: #### L 702.1000 #### Main Laboratory ([facility]) [address] [place] [address] Bjorn Washington MD Anion gap [Moles/Vol] 11 mmol/L Normal 4-12 [facility] Comment on above: Performed By: #### L 702.1000 #### Main [facility] ([facility]) [address] [place] [address] Bjorn Washington MD AST [Catalytic activity/Vol] 9 U/L Low 15-41 [facility] Comment on above: Performed By: #### L 702.1000 #### Main [facility] ([facility]) [address] [place] [address] Bjorn Washington MD Bili,Total 0.7 mg/dL Normal 0.2-1.0 [facility] Comment on above: Performed By: #### L 702.1000 #### Main [facility] ([facility]) [address] [place] [address] Bjorn Washington MD Calcium [Mass/Vol] 8.30 mg/dL Low 8.8-10.5 [facility] Comment on above: Performed By: #### L 702.1000 #### Main [facility] ([facility]) [address] [place] [address] Bjorn Washington MD Chloride [Moles/Vol] 104 mmol/L Normal 101-111 [facility] Comment on above: Performed By: #### L 702.1000 #### Main [facility] ([facility]) [address] [place] [address] Bjorn Washington MD CO2 [Moles/Vol] 17 mmol/L Low 21-32 [facility] Comment on above: Performed By: #### L 702.1000 #### Main [facility] ([facility]) [address] [place] [address] Bjorn Washington MD Creatinine [Mass/Vol] 0.59 mg/dL Low 0.60-1.30 [facility] Comment on above: Performed By: #### L 702.1000 #### Main [facility] ([facility]) [address] [place] [address] Bjorn Washington MD GFR Calculation > 60 Normal [facility] Comment on above: Result Comment: Vice President Research mau Kidney Disease stages by NKDF Stage eGFR I >90 II 60-89 III 30-59 IV 15-29 V <15 or dialysis AGE(years) AVERAGE GFR 20-29 116 ml/min/1.73 square meters Note:This result is normalized to 1.73 square meter body surface area. Height and weight are not factored. Performed By: #### L 702.1000 #### Main [facility] ([facility]) [address] [place] [address] Bjorn Washington MD Glucose [Mass/Vol] 250 mg/dL High 70-110 [facility] Comment on above: Performed By: #### L 702.1000 #### Main [facility] ([facility]) [address] [place] [facility] Bjorn Washington MD Potassium [Moles/Vol] 3.7 mmol/L Normal 3.6-5.0 [facility] Comment on above: Performed By: #### L 702.1000 #### Main [facility] ([facility]) [address] [place] [address] Bjorn Washington MD Protein [Mass/Vol] 6.1 g/dL Low 6.2-8.0 [facility] Comment on above: Performed By: #### L 702.1000 #### Main [facility] ([facility]) [address] [place] [address] Bjorn Washington MD Sodium [Moles/Vol] 132 mmol/L Low 135-145 [facility] Comment on above: Performed By: #### L 702.1000 #### Main [facility] ([facility]) [address] [place] [address] Bjorn Washington MD Urea nitrogen [Mass/Vol] 5 mg/dL Low 7-20 [facility] Comment on above: Performed By: #### L 702.1000 #### Main [facility] ([facility]) [address] [place] [address] Bjorn Wahsington MD Eosinophils/100 WBC Auto (Bl d)on 02-01-2022 Eosinophils/100 WBC (Bld) 0.6 % 0-6 [facility] Work Phone: Erythrocyte distribution wid th ratioon 02-01-2022 Erythrocyte distribution width (RBC) [Ratio] 14.2 % 12.0-16.0 [facility] Work Phone: Glucose (S/P/Bld) [Mass/Vol] on 02-01-2022 Glucose [Mass/Vol] 315 mg/dL High 70-110 [facility] Work Phone: Glycated Hemoglobinon 2021 Glycated Hemoglobin 9.8 % High 4.0-5.6 [facility] Comment on above: Result Comment: Hemo globin A1c values greater than or equal to 6.5 percent are diagnostic for diabetes mellitus. Diagnosis should be confirmed by repeat testing. In diabetic patients, HbA1c goals should be discussed with healthcare provider. Test Performed by: [address] [address] [employer] Operator: Tres Edge M.D. Ph.D.; CLIA# [id number] Performed By: #### L 400.0202, L400.2200, L400.4800 #### Main [facility] ([facility]) [address] [place] [address] Bjorn Washington MD Lymphocytes/100 WBC Auto (Bl d)on 02-01-2022 Lymphocytes/100 WBC (Bld) 19.2 % 15-45 [facility] Work Phone: Comment on above: Delta: 6.1 on -0530 MCH Auto (RBC) [Entitic mass ]on 02-01-2022 MCH (RBC) [Entitic mass] 27.5 pg 27.5-33.0 [facility] Work Phone: MCHC Auto (RBC) [Mass/Vol]on 02-01-2022 MCHC (RBC) [Mass/Vol] 35.7 g/dL 33.0-36.0 [facility] Work Phone: MCV Auto (RBC) [Entitic vol] on 02-01-2022 MCV (RBC) [Entitic vol] 77.0 CU ANDREW Low 80-97 [facility] Work Phone: Magnesiumon 02-01-2022 Magnesium [Mass/Vol] 1.9 mg/dL Normal 1.8-2.5 [facility] Comment on above: Performed By: #### L 400.0202, L400.2200, L400.4780 #### Main [facility] ([facility]) [address] [place] [address] Bjorn Washington MD Magnesium [Mass/Vol] 1.5 mg/dL Low 1.8-2.5 [facility] Comment on above: Performed By: #### L 702.1000 #### Main [facility] ([facility]) [address] [place] [address] Bjorn Washington MD Meter Glucoseon 02-01-2022 Glucose [Mass/Vol] 315 mg/dL High 70-110 [facility] Comment on above: Performed By: #### L 702.1000 #### Main [facility] ([facility]) [address] [place] [address] Bjorn Washington MD Glucose [Mass/Vol] 201 mg/dL High 70-110 [facility] Comment on above: Performed By: #### L 702.1000 #### Main [facility] ([facility]) [address] [place] [address] Bjorn Washington MD Glucose [Mass/Vol] 212 mg/dL High 70-110 [facility] Comment on above: Performed By: #### L 702.1000 #### Main [facility] ([facility]) [address] [place] [address] Bjorn Washington MD Glucose [Mass/Vol] 253 mg/dL High 70-110 [facility] Comment on above: Performed By: #### L 400.0202, L400.2200, L400.4800 #### Main [facility] ([facility]) [address] [place] [address] Bjorn Washington MD Glucose [Mass/Vol] 145 mg/dL High 70-110 [facility] Comment on above: Performed By: #### L 702.1000 #### Main [facility] ([facility]) [address] [place] [address] Bjorn Washington MD Glucose [Mass/Vol] 128 mg/dL High 70-110 [facility] Comment on above: Performed By: #### L 702.1000 #### Main [facility] ([facility]) [address] [place] [address] Bjorn Washington MD Glucose [Mass/Vol] 222 mg/dL High 70-110 [facility] Comment on above: Performed By: #### L 400.0202, L400.2200, L400.4800 #### Main [facility] ([facility]) [address] [place] [address] Bjorn Washington MD Glucose [Mass/Vol] 107 mg/dL Normal 70-110 [facility] Comment on above: Performed By: #### L 400.0202, L400.2200, L400.4800 #### Main [facility] ([facility]) [address] [place], [place] [address] Bjorn Washington MD Glucose [Mass/Vol] 245 mg/dL High 70-110 [facility] Comment on above: Performed By: #### L 400.0202, L400.2200, L400.4800 #### Main [facility] ([facility]) [address] [place] [address] Bjorn Washington MD Monocytes Auto (Bld) [#/Vol] on 02-01-2022 Monocytes (Bld) [#/Vol] 600 /cmm 0-800 L [facility] Work Phone: Monocytes/100 WBC Auto (Bld) on 02-01-2022 Monocytes/100 WBC (Bld) 5.6 % 2-10 L [facility] Work Phone: Neutrophils/100 WBC Auto (Bl d)on 02-01-2022 Neutrophils/100 WBC (Bld) 74.2 % High 40-70 [facility] Work Phone: No Panel Informationon 02-01 Glomerular Filtration Rate Calc > 60 >60 [facility] Work Phone: Comment on above: AGE(years) AVERAGE G FR 20-29 116 ml/min/1.73 square metersNote:This result is normalized to 1.73 square meter body surface area. Height and weight are not factored.Chronic Kidney Disease stages by NKDFStage eGFR I >90 II 60-89 III 30-59 IV 15-29 V <15 or dialysis Absolute Lymphocytes (auto) 2100 /cmm 5660-0514 [facility] Work Phone: Absolute Neutrophils (auto) 8100 /cmm High 2630-5192 [facility] Work Phone: Nucleated RBC Auto (Bld) [#/ Vol]on 02-01-2022 Nucleated RBC (Bld) [#/Vol] 0.1 /100 WBC <1 [facility] Work Phone: Phosphoruson 02-01-2022 Phosphate [Mass/Vol] 2.3 mg/dL Low 2.4-4.7 [facility] Comment on above: Result Comment: Delt a: < 1.0 on 02/01/22 Performed By: #### L 702.1000 #### Main [facility] ([facility]) [address] [place] [address] Bjorn Washington MD Phosphate [Mass/Vol] mg/dL Critically low 2.4-4.7 [facility] Comment on above: Result Comment: Crit ical Result S_PHOS:<1.0 Called to and read back by: AZAM PHILIPPE at: 02/01/2022 10:33:13 by:[email or web address] Performed By: #### L 400.0202, L400.2200, L400.4800 #### Main [facility] ([facility]) [address] [place] [address] Bjorn Washington MD Phosphate [Mass/Vol] 1.0 mg/dL Critically low 2.4-4.7 [facility] Comment on above: Result Comment: Crit ical Result S_PHOS:1.0 Called to and read back by: AZAM PHILIPPE at: 02/01/2022 09:18:42 by:KMENGL Performed By: #### L 702.1000 #### Main [facility] ([facility]) [address] [place] [address] Bjorn Washington MD Platelets Auto (Bld) [#/Vol] on 02-01-2022 Platelets (Bld) [#/Vol] 249 th/cmm 150-400 L [facility] Work Phone: Progress Note - ENTon 2021 Progress Note - ENT [facility] Medical Records Patient: SAVI NGUYEN [address] : [address] [place], [place] [address] Location: ICU [phone] Unit #: [id number] Progress Note - ENT Good Calderon MD [...] < > Report Signed by: on Normal [facility] Progress Note Critical Careo n 02-01-2022 Progress Note Critical Care [facility] Medical Records Patient: SAVI NGUYEN [address] : [address] [place], [place] [address] Location: ICU [phone] Unit #: [id number] Progress Note Critical Care Tee Buck PA-C [...] (Phosphorus Replacement (more content not included)... Normal [facility] RBC Auto (Bld) [#/Vol]on RBC (Bld) [#/Vol] 4.66 mil/cmm 4.00-5.10 [facility] Work Phone: Serum or plasma alanine carpenter otransferase measurement (enzymatic activity/volume)on 02-01-2022 ALT [Catalytic activity/Vol] 8 U/L Low 10-40 [facility] Work Phone: [phone] Serum or plasma albumin/glob ulin mass ratioon 02-01-2022 Albumin/Globulin [Mass ratio] 1.3 {ratio} Low 1.5-2.5 [facility] Work Phone: Serum or plasma alkaline denice sphatase measurement (enzymatic activity/volume)on 02-01-2022 ALP [Catalytic activity/Vol] 74 U/L 39-118 [facility] Work Phone: Serum or plasma aspartate am inotransferase measurement (enzymatic activity/volume)on 02-01-2022 AST [Catalytic activity/Vol] 9 U/L Low 15-41 [facility] Work Phone: Serum or plasma calcium ruth ann urement (mass/volume)on 02-01-2022 Calcium [Mass/Vol] 8.20 mg/dL Low 8.8-10.5 [facility] Work Phone: [phone] Serum or plasma carbon dioxi de, total measurement (moles/volume)on 02-01-2022 CO2 [Moles/Vol] 23 mmol/L 21-32 [facility] Work Phone: Comment on above: Delta: 17 on Serum or plasma chloride desirae surement (moles/volume)on 02-01-2022 Chloride [Moles/Vol] 103 mmol/L 101-111 [facility] Work Phone: [phone] Serum or plasma creatinine m easurement (mass/volume)on 02-01-2022 Creatinine [Mass/Vol] 0.56 mg/dL Low 0.60-1.30 [facility] Work Phone: [phone] Serum or plasma glucose ruth ann urement (mass/volume)on 02-01-2022 Glucose [Mass/Vol] 224 mg/dL High 70-110 [facility] Work Phone: [phone] Serum or plasma magnesium me asurement (mass/volume)on 02-01-2022 Magnesium [Mass/Vol] 1.9 mg/dL 1.8-2.5 [facility] Work Phone: [phone] Serum or plasma phosphate me asurement (mass/volume)on 02-01-2022 Phosphate [Mass/Vol] 2.3 mg/dL Low 2.4-4.7 [facility] Work Phone: Comment on above: Delta: < 1.0 on 01/06 Serum or plasma potassium me asurement (moles/volume)on 02-01-2022 Potassium [Moles/Vol] 4.0 mmol/L 3.6-5.0 [facility] Work Phone: Serum or plasma protein ruth ann urement (mass/volume)on 02-01-2022 Protein [Mass/Vol] 6.1 g/dL Low 6.2-8.0 [facility] Work Phone: Serum or plasma sodium measu rement (moles/volume)on 02-01-2022 Sodium [Moles/Vol] 133 mmol/L Low 135-145 [facility] Work Phone: Serum or plasma total biliru bin measurement (mass/volume)on 02-01-2022 Bilirubin [Mass/Vol] 0.7 mg/dL 0.2-[facility] Work Phone: [phone] Serum or plasma urea nitroge n measurement (mass/volume)on 02-01-2022 Urea nitrogen [Mass/Vol] 3 mg/dL Low 7-20 [facility] Work Phone: [phone] WBC Auto (Bld) [#/Vol]on WBC (Bld) [#/Vol] 10.9 th/cmm High 4.4-10.5 [facility] Work Phone: [phone] * Urine urinalysis yeast owen iants panel by computer assisted methodon 01-31-2022 Urinalysis yeast variants panel Computer assisted (U) Present High [facility] Work Phone: [phone] Automated bacteria count in urine sediment (number/area)on 01-31-2022 Bacteria Auto (Urine sed) [#/Area] Trace [facility] Work Phone: [phone] Automated blood hypochromia detectionon 01-31-2022 Hypochromia Auto Ql (Bld) 1+ [facility] Work Phone: [phone] Automated erythrocytes count in urine sediment (number/area)on 01-31-2022 RBC Auto (Urine sed) [#/Area] 0-2 /HPF [facility] Work Phone: [phone] Automated leukocytes count i n urine sediment (number/area)on 01-31-2022 WBC Auto (Urine sed) [#/Area] 0-5 /HPF [facility] Work Phone: [phone] Automated squamous epithelia l cells count in urine sediment (number/area)on 01-31-2022 Epithelial cells.squamous Auto (Urine sed) [#/Area] 11-20 /HPF High [facility] Work Phone: [phone] Basic Metabolic Panel,Fastin javi 01-31-2022 Anion gap [Moles/Vol] 8 mmol/L Normal 4-12 [facility] Comment on above: Performed By: #### L 400.0202, L400.2200, L400.4800 #### Main [facility] ([facility]) [address] [place] [address] Bjorn Washington MD Calcium [Mass/Vol] 8.50 mg/dL Low 8.8-10.5 [facility] Comment on above: Performed By: #### L 400.0202, L400.2200, L400.4800 #### Main [facility] ([facility]) [address] [place] [address] Bjorn Washington MD Chloride [Moles/Vol] 105 mmol/L Normal 101-111 [facility] Comment on above: Performed By: #### L 400.0202, L400.2200, L400.4800 #### Main [facility] ([facility]) [address] [place] [address] Bjorn Washington MD CO2 [Moles/Vol] 19 mmol/L Low 21-32 [facility] Comment on above: Performed By: #### L 400.0202, L400.2200, L400.4800 #### Main [facility] ([facility]) [address] [place] [address] Bjorn Washington MD Creatinine [Mass/Vol] 0.62 mg/dL Normal 0.60-1.30 [facility] Comment on above: Performed By: #### L 400.0202, L400.2200, L400.4800 #### Main [facility] ([facility]) [address] [place] [address] Bjorn Washington MD GFR Calculation > 60 Normal [facility] Comment on above: Result Comment: Vice President Research mau Kidney Disease stages by NKDF Stage eGFR I >90 II 60-89 III 30-59 IV 15-29 V <15 or dialysis AGE(years) AVERAGE GFR 20-29 116 ml/min/1.73 square meters Note:This result is normalized to 1.73 square meter body surface area. Height and weight are not factored. Performed By: #### L 400.0202, L400.2200, L400.4800 #### Main [facility] ([facility]) [address] [place] [address] Bjorn Washington MD Glucose [Mass/Vol] 216 mg/dL High 70-110 [facility] Comment on above: Performed By: #### L 400.0202, L400.2200, L400.4800 #### Main [facility] ([facility]) [address] [place], [facility] Bjorn Washington MD Potassium [Moles/Vol] 3.4 mmol/L Low 3.6-5.0 [facility] Comment on above: Performed By: #### L 400.0202, L400.2200, L400.4800 #### Main [facility] ([facility]) [address] [place] [address] Bjorn Washington MD Sodium [Moles/Vol] 132 mmol/L Low 135-145 [facility] Comment on above: Performed By: #### L 400.0202, L400.2200, L400.4800 #### Main [facility] ([facility]) [address] [place] [address] Bjorn Washington MD Urea nitrogen [Mass/Vol] 7 mg/dL Normal 7-20 [facility] Comment on above: Performed By: #### L 400.0202, L400.2200, L400.4800 #### Main [facility] ([facility]) [address] [place] [address] Bjorn Washington MD Anion gap [Moles/Vol] 8 mmol/L Normal 4-12 [facility] Comment on above: Performed By: #### L 702.1000 #### Main [facility] ([facility]) [address] [place] [address] Bjorn Washington MD Calcium [Mass/Vol] 8.40 mg/dL Low 8.8-10.5 [facility] Comment on above: Performed By: #### L 702.1000 #### Main [facility] ([facility]) [address] [place] [address] Bjorn Washington MD Chloride [Moles/Vol] 108 mmol/L Normal 101-111 [facility] Comment on above: Performed By: #### L 702.1000 #### Main [facility] ([facility]) [address] [place] [address] Bjorn Washington MD CO2 [Moles/Vol] 19 mmol/L Low 21-32 [facility] Comment on above: Result Comment: Delt a: 12 on 01/31/22 Performed By: #### L 702.1000 #### Main [facility] ([facility]) [address] [place] [address] Bjorn Washington MD Creatinine [Mass/Vol] 0.66 mg/dL Normal 0.60-1.30 [facility] Comment on above: Performed By: #### L 702.1000 #### Main [facility] ([facility]) [address] [place] [address] Bjorn Washington MD GFR Calculation > 60 Normal [facility] Comment on above: Result Comment: Vice President Research mau Kidney Disease stages by NKDF Stage eGFR I >90 II 60-89 III 30-59 IV 15-29 V <15 or dialysis AGE(years) AVERAGE GFR 20-29 116 ml/min/1.73 square meters Note:This result is normalized to 1.73 square meter body surface area. Height and weight are not factored. Performed By: #### L 702.1000 #### Main [facility] ([facility]) [address] [place] [address] Bjorn Washington MD Glucose [Mass/Vol] 179 mg/dL High 70-110 [facility] Comment on above: Performed By: #### L 702.1000 #### [facility] ([facility]) [address] [place] [address] Bjorn Washington MD Potassium [Moles/Vol] 3.6 mmol/L Normal 3.6-5.0 [facility] Comment on above: Performed By: #### L 702.1000 #### Main [facility] ([facility]) [address] [place] [address] Bjorn Washington MD Sodium [Moles/Vol] 135 mmol/L Normal 135-145 [facility] Comment on above: Performed By: #### L 702.1000 #### [facility] ([facility]) [address] [place], [facility] Bjorn Washington MD Urea nitrogen [Mass/Vol] 8 mg/dL Normal 7-20 [facility] Comment on above: Performed By: #### L 702.1000 #### [facility] ([facility]) [address] [place], [facility] Bjorn Washington MD Anion gap [Moles/Vol] 13 mmol/L High 4-12 [facility] Comment on above: Performed By: #### L 400.0202, L400.2200, L400.4800 #### [facility] ([facility]) [address] [place], [facility] Bjorn Washington MD Calcium [Mass/Vol] 8.10 mg/dL Low 8.8-10.5 [facility] Comment on above: Performed By: #### L 400.0202, L400.2200, L400.4800 #### [facility] ([facility]) [address] [place], [facility] Bjron Washington MD Chloride [Moles/Vol] 112 mmol/L High 101-111 [facility] Comment on above: Performed By: #### L 400.0202, L400.2200, L400.4800 #### [facility] ([facility]) [address] [place] [address] Bjorn Washington MD CO2 [Moles/Vol] 12 mmol/L Low 21-32 [facility] Comment on above: Performed By: #### L 400.0202, L400.2200, L400.480 #### [facility] ([facility]) [address] [place] [address] Bjorn Washington MD Creatinine [Mass/Vol] 0.76 mg/dL Normal 0.60-1.30 [facility] Comment on above: Performed By: #### L 400.0202, L400.2200, L400.4800 #### [facility] ([facility]) [address] [place] [address] Bjorn Washington MD GFR Calculation > 60 Normal [facility] Comment on above: Result Comment: Vice President Research mau Kidney Disease stages by NKDF Stage eGFR I >90 II 60-89 III 30-59 IV 15-29 V <15 or dialysis AGE(years) AVERAGE GFR 20-29 116 ml/min/1.73 square meters Note:This result is normalized to 1.73 square meter body surface area. Height and weight are not factored. Performed By: #### L 400.0202, L400.2199, L400.480 #### [facility] ([facility]) [address] [place] [address] Bjorn Washington MD Glucose [Mass/Vol] 175 mg/dL High 70-110 [facility] Comment on above: Performed By: #### L 400.0202, L400.2200, L400.4800 #### [facility] ([facility]) [address] [place] [address] Bjorn Washington MD Potassium [Moles/Vol] 4.5 mmol/L Normal 3.6-5.0 [facility] Comment on above: Performed By: #### L 400.0202, L400.2200, L400.4800 #### [facility] ([facility]) [address] [place] [address] Bjorn Washington MD Sodium [Moles/Vol] 137 mmol/L Normal 135-145 [facility] Comment on above: Performed By: #### L 400.0202, L400.2200, L400.4800 #### [facility] ([facility]) [address] [place] [address] Bjorn Washington MD Urea nitrogen [Mass/Vol] 11 mg/dL Normal 7-20 [facility] Comment on above: Performed By: #### L 400.0202, L400.2200, L400.4800 #### [facility] ([facility]) [address] [place] [address] Bjorn Washington MD Anion gap [Moles/Vol] 17 mmol/L High 4-12 [facility] Comment on above: Performed By: #### L 702.1000 #### [facility] ([facility]) [address] [place] [address] Bjorn Washington MD Calcium [Mass/Vol] 8.40 mg/dL Low 8.8-10.5 [facility] Comment on above: Performed By: #### L 702.1000 #### [facility] ([facility]) [address] [place] [address] Bjorn Washington MD Chloride [Moles/Vol] 111 mmol/L Normal 101-111 [facility] Comment on above: Performed By: #### L 702.1000 #### [facility] ([facility]) [address] [place] [address] Bjorn Washington MD CO2 [Moles/Vol] 10 mmol/L Low 21-32 [facility] Comment on above: Performed By: #### L 702.1000 #### [facility] ([facility]) [address] [place] [address] Bjorn Washington MD Creatinine [Mass/Vol] 0.83 mg/dL Normal 0.60-1.30 [facility] Comment on above: Performed By: #### L 702.1000 #### [facility] ([facility]) [address] [place] [address] Bjorn Washington MD GFR Calculation > 60 Normal [facility] Comment on above: Result Comment: Vice President Research mau Kidney Disease stages by NKDF Stage eGFR I >90 II 60-89 III 30-59 IV 15-29 V <15 or dialysis AGE(years) AVERAGE GFR 20-29 116 ml/min/1.73 square meters Note:This result is normalized to 1.73 square meter body surface area. Height and weight are not factored. Performed By: #### L 702.1000 #### Main Laboratory ([facility]) [address] [place] [address] Bjorn Washington MD Glucose [Mass/Vol] 212 mg/dL High 70-110 [facility] Comment on above: Performed By: #### L 702.1000 #### Main Laboratory ([facility]) [address] [place] [address] Bjorn Washington MD Potassium [Moles/Vol] 4.2 mmol/L Normal 3.6-5.0 [facility] Comment on above: Performed By: #### L 702.1000 #### Main Laboratory ([facility]) [address] [place] [id number] Bjorn Washington MD Sodium [Moles/Vol] 138 mmol/L Normal 135-145 [facility] Comment on above: Performed By: #### L 702.1000 #### Main Laboratory ([facility]) [address] [place] [address] Bjorn Washington MD Urea nitrogen [Mass/Vol] 12 mg/dL Normal 7-20 [facility] Comment on above: Performed By: #### L 702.1000 #### Main [facility] ([facility]) [address] [place] [address] Bjorn Washington MD Bilirubin Auto test strip Ql (U)on 01-31-2022 Bilirubin Ql (U) Negative Negative [facility] Work Phone: Blood hemoglobin A1/total he moglobinon 01-31-2022 Hemoglobin A1 (Bld) [Mass fraction] 9.8 % High [facility] Work Phone: Comment on above: Hemoglobin A1c value s greater than or equal to 6.5 percentare diagnostic for diabetes mellitus. Diagnosis should beconfirmed by repeat testing. In diabetic patients, [id number] should be discussed with healthcare provider.Test Performed by:[address] [id number] Director: [place] M.D. Ph.D.; CLIA# [id number] CBC with Differentialon 01-06 Abs Baso Count 100 /cmm Normal 0-200 [facility] Comment on above: Performed By: #### L 702.1000 #### Main Laboratory ([facility]) [address] [place] [address] Bjorn Washington MD Abs Eos Count 0 /cmm Normal 0-500 [facility] Comment on above: Performed By: #### L 702.1000 #### Main Laboratory ([facility]) [address] [place] [address] Bjorn Washington MD Abs Lymph Count 1600 /cmm Normal 2679-0175 [facility] Comment on above: Performed By: #### L 702.1000 #### Main Laboratory ([facility]) [address] [place] [address] Bjorn Washington MD Abs Hocking Count 1600 /cmm High 0-800 [facility] Comment on above: Performed By: #### L 702.1000 #### Main Laboratory ([facility]) [address] [place] [address] Bjorn Washington MD Abs Neut Count 67695 /cmm High 6262-7551 [facility] Comment on above: Performed By: #### L 702.1000 #### Main Laboratory ([facility]) [address] [place], [place] [address] Bjorn Washington MD Basophils/100 WBC (Bld) 0.4 % Normal 0-2 L [facility] Comment on above: Performed By: #### L 702.1000 #### Main Laboratory ([facility]) [address] [place], [place] [address] Bjorn Washington MD EOS-Auto Diff 0.1 % Normal 0-6 [facility] Comment on above: Performed By: #### L 702.1000 #### Main Laboratory ([facility]) [facility] [address] [place], [place] [address] Bjorn Washington MD Erythrocyte distribution width (RBC) [Ratio] 14.6 % Normal 12.0-16.0 [facility] Comment on above: Performed By: #### L 702.1000 #### Main Laboratory ([facility]) [address] [place], [place] [address] Bjorn Washington MD Hematocrit (Bld) [Volume fraction] 43.8 % Normal 35.0-44.0 [facility] Comment on above: Performed By: #### L 702.1000 #### Main Laboratory ([facility]) [address] [place], [place] [address] Bjorn Washington MD Hemoglobin (Bld) [Mass/Vol] 14.8 g/dL Normal 12.0-15.0 [facility] Comment on above: Performed By: #### L 702.1000 #### Main Laboratory ([facility]) [address] [place], [place] [address] Bjorn Washington MD Hypochromasia 1+ Normal [facility] Comment on above: Performed By: #### L 702.1000 #### Main Laboratory ([facility]) [address] [place], [place] [address] Bjorn Washington MD Lymphocytes/100 WBC (Bld) 6.1 % Low 15-45 [facility] Comment on above: Performed By: #### L 702.1000 #### Main Laboratory ([facility]) [address] [place], [place] [address] Bjorn Washington MD MCH (RBC) [Entitic mass] 26.7 pg Low 27.5-33.0 [facility] Comment on above: Performed By: #### L 702.1000 #### Main Laboratory ([facility]) [address] [place], [place] [address] Bjorn Washington MD MCHC (RBC) [Mass/Vol] 33.9 g/dL Normal 33.0-36.0 [facility] Comment on above: Performed By: #### L 702.1000 #### Main Laboratory ([facility]) [address] [place], [place] [address] Bjorn Washington MD MCV 79.0 CU ANDREW Low 80-97 [facility] Comment on above: Performed By: #### L 702.1000 #### Main Laboratory ([facility]) [address] [place], [place] [address] Bjorn Washington MD Hocking- Auto Diff 6.1 % Normal 2-10 [facility] Comment on above: Performed By: #### L 702.1000 #### Main Laboratory ([facility]) [address] [place], [facility] Bjorn Washington MD Neut-Auto Diff 87.3 % High 40-70 [facility] Comment on above: Performed By: #### L 702.1000 #### Main Laboratory ([facility]) [address] [place], [facility] Bjorn Washington MD NRBC-Auto 0.0 /100 WBC Normal <1 [facility] Comment on above: Performed By: #### L 702.1000 #### Main Laboratory ([facility]) [address] [place] [address] Bjorn Washingtno MD Platelet Count 309 th/cmm Normal 150-400 [facility] Comment on above: Performed By: #### L 702.1000 #### Main Laboratory ([facility]) [address] [place] [address] Bjorn Washington MD RBC 5.55 mil/cmm High 4.00-5.10 [facility] Comment on above: Performed By: #### L 702.1000 #### Main Laboratory ([facility]) [address] [place] [address] Bjorn Washington MD WBC 25.6 th/cmm High 4.4-10.5 [facility] Comment on above: Performed By: #### L 702.1000 #### Main Laboratory ([facility]) [address] [place] [address] Sinuses With Contraston 1 04-03-2021 CT Sinuses With Contrast [facility] Radiology Department Patient: SAVI NGUYEN [address] : 2000 Sex: [place] [id number] Location: [place] [address] Unit #: [id number] Ordering Phys: Good Calderon MD Exam Date: [...] by: Shane KNAPP,David Turpin on 01/31/221856 Normal [facility] Complete urinalysis with ref torito to cultureon 01-31-2022 Urinalysis complete W Reflex Culture panel (U) No [facility] Work Phone: Comment on above: Culture not done per lab protocol Consultation - ENTon 022 Consultation - ENT [facility] Medical Records Patient: SAVI NGUYEN [address] : 2000 [place], [place] [address] Location: [facility] [phone] Unit #: [id number] Consultation - ENT Good Calderon MD Service [...] < > Report Signed by: on Normal [facility] HCO3 (BldV) [Moles/Vol]on HCO3 (Bld) [Moles/Vol] 10.4 mmol/L Low 23.0-28.0 L [facility] Work Phone: Hemoglobin A1Con 01-31-2022 Hgb A1C Normal 4.4-6.4 [facility] Comment on above: Result Comment: Vari ant detected - Specimen sent to [facility] for A1c testing. Performed By: #### L 400.0205, L400.3360, L400.3854 #### Main Laboratory ([facility]) [address] [place] [address] Bjorn Washington MD Hemoglobin [Mass/volume] in Urine by Automated test stripon 01-31-2022 Hemoglobin Auto test strip (U) [Mass/Vol] Negative Negative [facility] Work Phone: Ionized Calciumon 01-31-2022 Ionized Calcium 1.20 mmol/L Normal 1.15-1.29 [facility] Comment on above: Performed By: #### L 702.1000 #### Main Laboratory ([facility]) [address] [place] [address] Bjorn Washington MD Ketones Auto test strip (U) [Mass/Vol]on 01-31-2022 Ketones (U) [Mass/Vol] 10 mg/dL High Negative [facility] Work Phone: Magnesiumon 01-31-2022 Magnesium [Mass/Vol] 1.8 mg/dL Normal 1.8-2.5 [facility] Comment on above: Performed By: #### L 702.1000 #### Main Laboratory ([facility]) [address] [place] [address] Bjorn Washington MD Meter Glucoseon 01-31-2022 Glucose [Mass/Vol] 173 mg/dL High 70-110 [facility] Comment on above: Performed By: #### L 702.1000 #### Main [facility] ([facility]) [address] [place] [address] Bjorn Washington MD Glucose [Mass/Vol] 146 mg/dL High 70-110 [facility] Comment on above: Performed By: #### L 400.0202, L400.2200, L400.4800 #### Main Laboratory ([facility]) [address] [place] [address] Bjorn Washington MD Glucose [Mass/Vol] 136 mg/dL High 70-110 [facility] Comment on above: Performed By: #### L 400.0202, L400.2200, L400.4800 #### Main [facility] ([facility]) [address] [place] [address] Bjorn Washington MD Glucose [Mass/Vol] 163 mg/dL High 70-110 [facility] Comment on above: Performed By: #### L 702.1000 #### Main [facility] ([facility]) [address] [place] [address] Bjorn Washington MD Glucose [Mass/Vol] 188 mg/dL High 70-110 [facility] Comment on above: Performed By: #### L 702.1000 #### Main Laboratory ([facility]) [address] [place] [address] Bjorn Washington MD Glucose [Mass/Vol] 170 mg/dL High 70-110 [facility] Comment on above: Performed By: #### L 702.1000 #### Main [facility] ([facility]) [address] [place] [address] Bjorn Washington MD Glucose [Mass/Vol] 165 mg/dL High 70-110 [facility] Comment on above: Performed By: #### L 702.1000 #### Main [facility] ([facility]) [address] [place] [address] Bjorn Washington MD Glucose [Mass/Vol] 164 mg/dL High 70-110 [facility] Comment on above: Performed By: #### L 702.1000 #### Main [facility] ([facility]) [address] [place] [address] Bjorn Washington MD Glucose [Mass/Vol] 196 mg/dL High 70-110 [facility] Comment on above: Performed By: #### L 400.0202, L400.2200, L400.4800 #### Main [facility] ([facility]) [address] [place] [address] Bjorn Washington MD Glucose [Mass/Vol] 185 mg/dL High 70-110 [facility] Comment on above: Performed By: #### L 400.0202, L400.2200, L400.4800 #### Main [facility] ([facility]) [address] [place] [address] Bjorn Washington MD Glucose [Mass/Vol] 195 mg/dL High 70-110 [facility] Comment on above: Performed By: #### L 702.1000 #### Main Laboratory ([facility]) [address] [place] [address] Bjorn Washington MD Glucose [Mass/Vol] 191 mg/dL High 70-110 [facility] Comment on above: Performed By: #### L 702.1000 #### Main [facility] ([facility]) [address] [place] [address] Bjorn Washington MD Glucose [Mass/Vol] 228 mg/dL High 70-110 [facility] Comment on above: Performed By: #### L 702.1000 #### Main [facility] ([facility]) [address] [place] [address] Bjorn Washington MD No Panel Informationon 01-31 Blood Gas Notified By Yes [facility] Work Phone: Blood Gas Patient Equipment Room Air [facility] Work Phone: Venous Blood pH 7.22 Low 7.31-7.41 [facility] Work Phone: Hemoglobin A1c See comment 4.4-6.4 [facility] Work Phone: Comment on above: Variant detected - S pecimen sent to [facility] for A1c testing. Ionized Calcium 1.20 mmol/L 1.15-1.29 [facility] Work Phone: Osmolality of Serum or Plasm aon 01-31-2022 Osmolality [Osmolality] 299 mOsm 270-300 L [facility] Work Phone: Osmolality, Serumon 02-01-20 22 Osmolality, Serum 299 mOsm Normal 270-300 [facility] Comment on above: Performed By: #### L 400.0202, L400.2200, L400.4800 #### Main Laboratory ([facility]) [address] [place] [address] Bjorn Washington MD Osmolality, Serum 297 mOsm Normal 270-300 [facility] Comment on above: Performed By: #### L 702.1000 #### Main [facility] ([facility]) [address] [place] [address] Bjorn Washington MD Osmolality, Serum 298 mOsm Normal 270-300 [facility] Comment on above: Performed By: #### L 400.0202, L400.2200, L400.4800 #### Main [facility] ([facility]) [address] [place], [place] [address] Bjorn Washington MD Osmolality, Serum 309 mOsm High 270-300 [facility] Comment on above: Performed By: #### L 702.1000 #### Main [facility] ([facility]) [address] [place], [place] [address] Bjorn Washington MD Other useful informationon 1 04-03-2021 Other useful information Vein [facility] Work Phone: Phosphoruson 01-31-2022 Phosphate [Mass/Vol] 1.3 mg/dL Low 2.4-4.7 [facility] Comment on above: Performed By: #### L 400.0202, L400.2200, L400.4800 #### Main [facility] ([facility]) [address] [place], [place] [address] Bjorn Washington MD Phosphate [Mass/Vol] 1.5 mg/dL Low 2.4-4.7 [facility] Comment on above: Result Comment: Delt a: 2.1 on 01/31/22 Performed By: #### L 702.1000 #### Main [facility] ([facility]) [address] [place] [address] Bjorn Washington MD Phosphate [Mass/Vol] 2.1 mg/dL Low 2.4-4.7 [facility] Comment on above: Performed By: #### L 400.0202, L400.2200, L400.4800 #### Main [facility] ([facility]) [address] [place] [address] Bjorn Washington MD Phosphate [Mass/Vol] 2.3 mg/dL Low 2.4-4.7 [facility] Comment on above: Performed By: #### L 702.1000 #### Main [facility] ([facility]) [address] [place] [address] Bjorn Washington MD Protein Auto test strip (U) [Mass/Vol]on 01-31-2022 Protein (U) [Mass/Vol] 10 mg/dL Negative [facility] Work Phone: Serum or plasma fasting gluc ose measurement (mass/volume)on 01-31-2022 Glucose post fast [Mass/Vol] 216 mg/dL High 70-110 [facility] Work Phone: Specific gravity Auto test s trip (U) [Rel density]on 01-31-2022 Specific gravity (U) [Rel density] >=1.030 1.000-1.035 [facility] Work Phone: Urinalysis w Micro Rflx Cult on 01-31-2022 Bacteria Trace Normal [facility] Comment on above: Order Comment: Urine Source Urine, Clean Catch Performed By: #### L 400.0202, L400.2200, L400.4800 #### Main [facility] ([facility]) [address] [place] [address] Bjorn Washington MD Epi,Squamous 11-20 High [facility] Comment on above: Order Comment: Urine Source Urine, Clean Catch Performed By: #### L 400.0202, L400.2200, L400.4800 #### Main [facility] ([facility]) [address] [place] [address] Bjorn Washington MD Mucous Present Normal [facility] Comment on above: Order Comment: Urine Source Urine, Clean Catch Performed By: #### L 400.0202, L400.2200, L400.4800 #### Main [facility] ([facility]) [address] [place], [place] [address] Bjorn Washington MD RBC 0-2 Normal [facility] Comment on above: Order Comment: Urine Source Urine, Clean Catch Performed By: #### L 400.0202, L400.2200, L400.4800 #### Main [facility] ([facility]) [address] [place], [place] [address] Bjorn Washington MD UA Reflex Culture No Normal [facility] Comment on above: Order Comment: Urine Source Urine, Clean Catch Result Comment: Cult ure not done per lab protocol Performed By: #### L 400.0202, L400.2200, L400.4800 #### Main [facility] ([facility]) [address] [place] [address] Bjorn Washington MD WBC 0-5 Normal [facility] Comment on above: Order Comment: Urine Source Urine, Clean Catch Performed By: #### L 400.0202, L400.2200, L400.4800 #### Main [facility] ([facility]) [address] [place], [place] [address] Bjorn Washington MD Yeast Present High [facility] Comment on above: Order Comment: Urine Source Urine, Clean Catch Performed By: #### L 400.0202, L400.2200, L400.4800 #### Main [facility] ([facility]) [address] [place], [place] [address] Bjorn Washington MD Appearance (U) Clear Normal [facility] Comment on above: Order Comment: Urine Source Urine, Clean Catch Performed By: #### L 400.0202, L400.2200, L400.4800 #### Main [facility] ([facility]) [address] [place], [place] [address] Bjorn Washington MD Bilirubin Ql (U) Negative Normal Negative [facility] Comment on above: Order Comment: Urine Source Urine, Clean Catch Performed By: #### L 400.0202, L400.2200, L400.4800 #### Main [facility] ([facility]) [address] [place] [address] Bjorn Washington MD Color (U) Yellow Normal [facility] Comment on above: Order Comment: Urine Source Urine, Clean Catch Performed By: #### L 400.0202, L400.2200, L400.4800 #### Main [facility] ([facility]) [address] [place] [address] Bjorn Washington MD Glucose Ql (U) Negative Normal Negative [facility] Comment on above: Order Comment: Urine Source Urine, Clean Catch Performed By: #### L 400.0202, L400.2200, L400.4800 #### Main [facility] ([facility]) [address] [place] [address] Bjorn Washington MD Ketones Ql (U) 10 mg/dL High Negative [facility] Comment on above: Order Comment: Urine Source Urine, Clean Catch Performed By: #### L 400.0202, L400.2200, L400.4800 #### [facility] ([facility]) [address] [place] [address] Bjorn Washington MD Leukocytes Negative Normal Negative [facility] Comment on above: Order Comment: Urine Source Urine, Clean Catch Performed By: #### L 400.0202, L400.2200, L400.4800 #### Main [facility] ([facility]) [address] [place] [address] Bjorn Washington MD Nitrite Ql (U) Negative Normal Negative [facility] Comment on above: Order Comment: Urine Source Urine, Clean Catch Performed By: #### L 400.0202, L400.2200, L400.4800 #### [facility] ([facility]) [address] [place] [address] Bjorn Washington MD pH (U) 6.0 [pH] Normal 5.0-8.0 [facility] Comment on above: Order Comment: Urine Source Urine, Clean Catch Performed By: #### L 400.0202, L400.2200, L400.4800 #### Main [facility] ([facility]) [address] [place] [address] Bjorn Washington MD Protein Ql (U) 10 mg/dL Normal Negative [facility] Comment on above: Order Comment: Urine Source Urine, Clean Catch Performed By: #### L 400.0202, L400.2200, L400.4800 #### Main [facility] ([facility]) [address] [place] [address] Bjorn Washington MD Specific gravity (U) [Rel density] >=1.030 Normal 1.000-1.035 [facility] Comment on above: Order Comment: Urine Source Urine, Clean Catch Performed By: #### L 400.0202, L400.2200, L400.4800 #### Main [facility] ([facility]) [address] [place] [address] Bjorn Washington MD Urobilinogen Normal Normal 0.2-1.0 [facility] Comment on above: Order Comment: Urine Source Urine, Clean Catch Performed By: #### L 400.0202, L400.2200, L400.4800 #### [facility] ([facility]) [address] [place] [address] Bjorn Washington MD Urine appearance determinati onon 01-31-2022 Appearance (U) Clear [facility] Work Phone: Urine color determinationon 01-31-2022 Color (U) Yellow [facility] Work Phone: Urine glucose measurement by automated test strip (mass/volume)on 01-31-2022 Glucose Auto test strip (U) [Mass/Vol] Negative Negative [facility] Work Phone: Urine leukocytes count by au tomated test strip (number/volume)on 01-31-2022 WBC Auto test strip (U) [#/Vol] Negative Negative [facility] Work Phone: Urine mucus detection by aut omated methodon 01-31-2022 Mucus Auto Ql (U) Present [facility] Work Phone: Urine nitrite detection by a utomated test stripon 01-31-2022 Nitrite Auto test strip Ql (U) Negative Negative [facility] Work Phone: Urobilinogen Auto test strip (U) [Mass/Vol]on 01-31-2022 Urobilinogen (U) [Mass/Vol] Normal 0.2-1.0 [facility] Work Phone: Venous Blood Gaseson 022 ABG Device Room Air Normal [facility] Comment on above: Performed By: #### L 702.1000 #### Main [facility] ([facility]) [address] [place], [place] [address] Bjorn Washington MD ABG Draw Site Vein Normal [facility] Comment on above: Performed By: #### L 702.1000 #### [facility] ([facility]) [address] [place], [place] [address] Bjorn Washington MD HCO3 (Bld) [Moles/Vol] 10.4 mmol/L Low 23.0-28.0 L [facility] Comment on above: Performed By: #### L 702.1000 #### Main [facility] ([facility]) [address] [place], [place] [address] Bjorn Washington MD Oxygen saturation in Blood 91 % Low 95-98 [facility] Comment on above: Performed By: #### L 702.1000 #### [facility] ([facility]) [address] [place], [place] [address] Bjorn Washnigton MD Unit Notified? Yes Normal [facility] Comment on above: Performed By: #### L 702.1000 #### [facility] ([facility]) [address] [place] [address] Bjorn Washington MD Venous Base Excess -17 mmol/L Low -2-3 [facility] Comment on above: Performed By: #### L 702.1000 #### [facility] ([facility]) [address] [place] [address] Bjorn Washington MD Venous FiO2 21.00 Normal [facility] Comment on above: Performed By: #### L 702.1000 #### [facility] ([facility]) [address] [place] [address] Bjorn Washington MD Venous pCO2 25 mmHg Low 41-51 [facility] Comment on above: Performed By: #### L 702.1000 #### [facility] ([facility]) [address] [place] [address] Bjorn Washington MD Venous pH 7.22 Low 7.31-7.41 [facility] Comment on above: Performed By: #### L 702.1000 #### [facility] ([facility]) [address] [place] [address] Bjorn Washington MD Venous pO2 70 mmHg Low 80-105 [facility] Comment on above: Performed By: #### L 702.1000 #### [facility] ([facility]) [address] [place] [address] Bjorn Washington MD Venous blood Amanda indexo n 01-31-2022 Amanda index (BldV+Inhl gas) [Ratio] 21.00 [facility] Work Phone: Venous blood base excess by calculationon 01-31-2022 Base excess Calc (BldV) [Moles/Vol] -17 mmol/L Low -2-3 [facility] Work Phone: Venous blood oxygen saturati on (mass fraction)on 01-31-2022 Oxygen saturation in Venous blood 91 % Low 95-98 [facility] Work Phone: Venous blood partial pressur e of carbon dioxide measurement adjusted to patients actuon 01-31-2022 CO2 adjusted to patient's actual temperature (BldV) [Partial pressure] 25 mmHg Low 41-51 [facility] Work Phone: Venous blood partial pressur e of oxygen measurement with patient temperature corrrecton 01-31-2022 Oxygen adjusted to patient's actual temperature (BldV) [Partial pressure] 70 mmHg Low 80-105 [facility] Work Phone: pH Auto test strip (U)on pH (U) 6.0 [pH] 5.0-8.0 [facility] Work Phone: PAP ACOG PANEL 2: 21 to 29on 06-27-2021 . . [facility] Comment on above: Performed By: #### [id number] #### [facility] [address] [place] [address] Dr. Ute Adame Age Gdln ACOG Testing - [facility] Comment on above: Performed By: #### [id number] #### [facility] [address] [place] [address] Dr. Ute Adame DIAGNOSIS: Comment [facility] Comment on above: Result Comment: NEGA TIVE FOR INTRAEPITHELIAL LESION OR MALIGNANCY. CELLULAR CHANGES ASSOCIATED WITH INFLAMMATION ARE PRESENT. Performed By: #### [id number] #### [facility] [address] [place] [address] Dr. Ute Adame Methodology: Comment [facility] Comment on above: Result Comment: This liquid based ThinPrep(R) pap test was screened with the use of an image guided system. Performed By: #### [id number] #### [facility] [address] [place] [address] Dr. Ute Adame Note: Comment [facility] Comment on above: Result Comment: The Pap smear is a screening test designed to aid in the detection of premalignant and malignant conditions of the uterine cervix. It is not a diagnostic procedure and should not be used as the sole means of detecting cervical cancer. Both false-positive and false-negative reports do occur. . Performed By: #### [id number] #### [facility] [address] [place] [address] Dr. Ute Adame Performed by: Comment Normal [facility] Comment on above: Result Comment: Danielle Alcaraz, Pharmacovigilance Specialist (ASCP) Performed By: #### [id number] #### [facility] [address] [place] [address] Dr. Ute Adame Reflex Criteria: Comment Normal [facility] Comment on above: Result Comment: The HPV DNA reflex criteria were not met with this specimen result therefore, no HPV testing was performed. . Performed By: #### [id number] #### [facility] [address] [place] [address] Dr. Ute Adame Specimen adequacy: Comment Normal [facility] Comment on above: Result Comment: Sati sfactory for evaluation. Endocervical and/or squamous metaplastic cells (endocervical component) are present. Performed By: #### [id number] #### [facility] [address] [place] [address] Dr. Ute Adame Vital Signs Date Time Vital Sign Value Performing Clinician Facility 03-20-2023 12:42-0500 Body height 163 cm Feli MULLINS Work Phone: [facility] 03-20-2023 12:42-0500 Body mass index (BMI) [Ratio] 33.84 kg/m2 Feli Nguyen APRN-SUPERVISOR CORRESPONDENCE SECTION Work Phone: [facility] 03-20-2023 12:42-0500 Body weight 89.9 kg Feli Nguyen APRN-SUPERVISOR CORRESPONDENCE SECTION Work Phone: [facility] 03-20-2023 12:42-0500 Diastolic blood pressure 76 mm[Hg] Feli Nguyen APRN-SUPERVISOR CORRESPONDENCE SECTION Work Phone: [facility] 03-20-2023 12:42-0500 Heart rate 87 /min Feli Nguyen APRN-SUPERVISOR CORRESPONDENCE SECTION Work Phone: [facility] 03-20-2023 12:42-0500 Systolic blood pressure 122 mm[Hg] Feli Nguyen DRIVE THRU ORDER TAKER-SUPERVISOR CORRESPONDENCE SECTION Work Phone: [facility] 03-19-2023 13:37-0500 Body mass index (BMI) [Ratio] 33.81 kg/m2 Sandra Bhatia PA Work Phone: [facility] 03-19-2023 13:37-0500 Body weight 89.36 kg Sandra Bhatia PA Work Phone: [facility] 03-19-2023 13:37-0500 Diastolic blood pressure 74 mm[Hg] Sandra Bhatia PA Work Phone: [facility] 03-19-2023 13:37-0500 Systolic blood pressure 122 mm[Hg] Sandra Bhatia PA Work Phone: [facility] 02-26-2023 11:16-0500 Body mass index (BMI) [Ratio] 34.31 kg/m2 Chs Risk [facility] 02-26-2023 11:16-0500 Body temperature 98.2 [degF] Chs Risk [facility] 02-26-2023 11:16-0500 Body weight 90.67 kg Chs Risk [facility] 02-26-2023 11:16-0500 Diastolic blood pressure 64 mm[Hg] Chs Risk [facility] 02-26-2023 11:16-0500 Systolic blood pressure 110 mm[Hg] Chs Risk [facility] 02-01-2022 19:27-0500 Body temperature 98 [degF] Physician None Work Phone: [facility] Work Phone: 02-01-2022 19:27-0500 Diastolic blood pressure 77 mm[Hg] Physician None Work Phone: [facility] Work Phone: 02-01-2022 19:27-0500 Heart rate 75 /min Physician None Work Phone: [facility] Work Phone: 02-01-2022 19:27-0500 Respiratory rate 19 /min Physician None Work Phone: [facility] Work Phone: 02-01-2022 19:27-0500 SaO2% (BldA) [Mass fraction] 99 % Physician None Work Phone: [facility] Work Phone: 02-01-2022 19:27-0500 Systolic blood pressure 133 mm[Hg] Physician None Work Phone: [facility] Work Phone: 02-01-2022 00:16-0500 Body weight 83.2 kg Physician None Work Phone: [facility] Work Phone: 01-31-2022 04:13-0500 Body height 162.56 cm Physician None Work Phone: [facility] Work Phone: 01-31-2022 04:13-0500 Body mass index (BMI) [Ratio] 29.7 kg/m2 Physician None Work Phone: [facility] Work Phone: Encounters Encounter Date Encounter Type Care Provider Facility Start: 08-21-2023 End: 08-22-2023 Emergency department patient visit PRIYA BRITT [facility] Start: 08-02-2023 End: 08-02-2023 ambulatory FELI Sherwood [facility] Start: 05-07-2023 Telephone encounter Joan Mosqueda RN [facility] - [facility] Start: 05-07-2023 End: 05-07-2023 ambulatory JOBST SERVICE [facility] Start: 05-07-2023 End: 05-07-2023 ambulatory Dcc Diab Nurse [facility] Start: 04-16-2023 Telephone encounter Joan Mosqueda RN [facility] Start: 04-16-2023 End: 04-16-2023 ambulatory Dcc Diab Nurse 4 [facility] - Diabetes Start: 04-12-2023 End: 04-12-2023 ambulatory Dcc Diab Nurse [facility] Comment on above: Type 1 diabetes velma itus with hyperglycemia ([facility]) Type 1 diabetes velma itus with hyperglycemia ([facility]) (Primary Dx) Start: 04-12-2023 End: 04-12-2023 ambulatory FELI NGUYEN [facility] Start: 04-05-2023 Telephone encounter Feli Presley Porfirio [address] THRU ORDER TAKER-SUPERVISOR CORRESPONDENCE SECTION Work Phone: [facility] Start: 03-20-2023 End: 03-20-[address] THRU ORDER TAKER-SUPERVISOR CORRESPONDENCE SECTION Work Phone: [facility] Start: 03-20-2023 End: 03-20-2023 Office outpatient visit [address] THRU ORDER TAKER-SUPERVISOR CORRESPONDENCE SECTION Work Phone: [facility] Comment on above: Type 1 diabetes velma itus with hyperglycemia ([facility]) (Primary Dx) Start: 03-19-2023 End: 03-19-2023 ambulatory SANDRA BHATIA Not Available Start: 03-19-2023 End: 03-19-2023 Postop follow up visit related to original px Sandra CALDERÓN Work Phone: [facility] Comment on above: Postop check; 6 weeks follow-up; S/P section Start: 02-26-2023 End: 02-26-2023 ambulatory RO TABARES [facility] Start: 02-26-2023 End: 02-26-2023 care visit [facility] [place] [facility] - Women's Services Comment on above: care and examination (Primary Dx) Start: 02-23-2023 Encounter Community Services Work Phone: [facility] - RONNIE 3E NICU Start: 02-20-2023 End: 02-20-2023 Evaluation and management of inpatient LASHAE Aguilera NOEMI [facility] Start: 02-20-2023 Encounter Community Services Work Phone: [facility] - [facility] 3E NICU Start: 02-16-2023 End: 02-20-2023 Evaluation and management of inpatient YESSY PEDERSEN [facility] Start: 02-04-2023 End: 02-05-2023 Evaluation and management of inpatient RO TABARES [facility] Start: 02-01-2023 End: 02-10-2023 Evaluation and management of inpatient SOPHIE HUDSON [facility] Start: 02-01-2023 End: 02-01-2023 Orders Only Anjali Andino MARINE GEAR KEEPER Maternal- Medic ine at [facility] Comment on above: Pre-existing type 1 diabetes mellitus during in third trimester (Primary Dx); History of stillbirth in patient in third trimester, antepartum Start: 01-31-2023 End: 01-31-2023 ambulatory LINDA OLY Not Available Start: 01-23-2023 End: 01-24-2023 ambulatory LINDA R OLY [facility] Start: 01-17-2023 End: 01-17-2023 ambulatory SANDRA JANNETTE Not Available Start: 01-03-2023 End: 01-03-2023 ambulatory LINDA OLY Not Available Start: 12-20-2022 End: 12-20-2022 ambulatory SANDRA JANNETTE Not Available Start: 01-31-2022 End: 02-01-2022 Evaluation and management of inpatient None Facility:[facility] Start: 01-31-2022 End: 02-01-2022 Evaluation and management of inpatient Physician None Work Phone: [facility] Start: 06-21-2021 End: 06-21-[address] TAMI ALVAREZ Facility:H1 Procedures Date Procedure Procedure Detail Performing Clinician Start: 08-02-2023 Follow-up visit Follow-up FELI NGUYEN Start: 03-20-2023 Hemoglobin glycosyla juvenal a1c Feli Nguyen DRIVE THRU ORDER TAKER-SUPERVISOR CORRESPONDENCE SECTION Work Phone: Start: 03-20-2023 Adult depression screening assessment Feli Nguyen DRIVE THRU ORDER TAKER-SUPERVISOR CORRESPONDENCE SECTION Work Phone: Start: 02-26-2023 care Care FELI NGUYEN Start: 02-26-2023 Adult depression screening assessment Chs Risk Start: 01-30-2023 Adult depression screening assessment Anjali Andino [facility] Start: 09-20-2022 Microscopic observat ion [Identifier] in Cervix by Cyto stain Anjali Andino [facility] Start: 01-31-2022 Blood count hemoglobin Comment on above: Order Comment: Urine Source Urine, Clean Catch Performed By: #### L 400.0202, L400.2200, L400.4800 #### Main Laboratory ([facility]) [address] [place] [address] Bjorn Washington MD Start: 01-31-2022 CT of paranasal sinu ses with contrast Physician None Work Phone: Start: 04-27-2021 Microalbumin [Mass/volume] in Urine by Test strip Anjali Andino [facility] Start: 10-24-2019 End: 06-02-2020 H/O: section Previous delivery, antepartum Anjali Andino [facility] H/O: section S/P sectio n Sandra CALDERÓN Work Phone: Plan of Treatment Date Care Activity Detail Author Start: 02-02-2033 DTaP,Tdap and Td Vaccines (10 - Td or Tdap) DTaP,Tdap and Td Vaccines (10 - Td or Tdap) [facility] Start: 03-25-2030 DTaP,Tdap and Td Vaccines (9 - Td or Tdap) DTaP,Tdap and Td Vaccines (9 - Td or Tdap) [facility] Start: 09-20-2025 Screening for malign ant neoplasm of cervix Pap Smear [facility] Start: 03-26-2024 Tobacco Screening Tobacco Screening [facility] Start: 03-20-2024 Adult BMI Screening Adult BMI Screen ing [facility] Start: 03-20-2024 Depression Screening Depression Scre ening [facility] Start: 03-20-2024 Tobacco Screening Tobacco Screening [facility] Start: 02-27-2024 Adult BMI Screening Adult BMI Screen ing [facility] Start: 02-27-2024 Depression Screening Depression Scre ening [facility] Start: 02-27-2024 Tobacco Screening Tobacco Screening [facility] Start: 02-20-2024 Tobacco Screening Tobacco Screening [facility] Start: 02-17-2024 Adult BMI Screening Adult BMI Screen ing [facility] Start: 02-02-2024 End: 02-02-2024 US MFM with or without consult US MFM with or without consult Imaging Routine Pre-existing type 1 diabetes mellitus during in third trimester History of stillbirth in patient in third trimester, antepartum Expected: 02/02/2024 (Approximate), Expires: 02/02/2024 [facility] Work Phone: Comment on above: Expected: 02/02/2024 (Approximate), Expires: 02/02/2024 Start: 01-31-2024 Depression Screening Depression Scre ening [facility] Start: 01-24-2024 Adult BMI Screening Adult BMI Screen ing [facility] Start: 01-24-2024 Tobacco Screening Tobacco Screening [facility] Start: 10-07-2023 Influenza vaccination Influenza Vacc ine [facility] Start: 06-18-2023 End: 06-18-2023 Patient encounter procedure 06/18/2023 10:15 AM EDT [facility] [address] [facility] [address] [place] [phone] Feli Nguyen, DRIVE THRU ORDER TAKER-SUPERVISOR CORRESPONDENCE SECTION [address] [facility] [place], [place] [id number] [facility] Start: 05-07-2023 End: 05-07-2023 ambulatory 05/07/2023 8:45 AM EDT Support [facility] [place] - Diabetes [address] [place] [phone] [facility] [place] - Diabetes Start: 04-16-2023 End: 04-16-2023 ambulatory 04/16/2023 8:00 AM EDT Support [facility] [place] - Diabetes [address] [place] [address] [facility] Start: 04-02-2023 End: 04-02-2023 ambulatory 04/02/2023 1:30 PM EST Visit [facility] [address] [place] [address] Sandra Bhatia PA [address] [place] [address] [facility] Start: 03-20-2023 End: 03-20-2023 Patient encounter procedure 03/20/2023 12:45 PM EST Office Visit [facility] [address] [facility] [address] [place] [phone] Feli Nguyen, DRIVE THRU ORDER TAKER-SUPERVISOR CORRESPONDENCE SECTION [address] [facility], [address] [place] [address] [facility] Start: 02-26-2023 End: 02-26-2023 ambulatory 02/26/2023 11:15 AM EST Visit [facility] [address] [place] [phone] [facility] Start: 02-21-2023 End: 02-21-2023 Patient encounter procedure 02/21/2023 1:45 PM EST Office Visit [facility] [address] [facility] [address], [place] [phone] Feli Nguyen, DRIVE THRU ORDER TAKER-SUPERVISOR CORRESPONDENCE SECTION [address] [facility] [place] [address] [facility] Start: 02-19-2023 End: 02-19-2023 Patient encounter procedure 02/19/2023 11:00 AM EST Appointment [facility] [address] [place] [address] [facility] Start: 02-06-2023 End: 02-06-2023 ambulatory 02/06/2023 1:00 PM EST Initial [facility] [address] [place] [phone] [facility] Start: 02-01-2023 End: 02-01-2023 Patient encounter procedure 02/01/2023 3:00 PM EST Office Visit Maternal- Medicine at [facility] [address] [place] [phone] Quinton Arita MD [address], [address] [place] [address] M[facility]- Medicine at [facility] Start: 10-06-2022 Influenza vaccination Influenza Vacc ine [facility] Start: 04-27-2022 Urine screening for protein Urine Microalbumin [facility] Start: 02-01-2022 [facility] Work Phone: Start: 02-01-2022 Patient discharge [facility] Work Phone: Start: 02-01-2022 Patient transfer [facility] Work Phone: Start: 01-31-2022 Referral to ear, nos e and throat service [facility] Work Phone: Start: 01-31-2022 End: 01-31-2022 [facility] Work Phone: Start: 01-31-2022 Notification of physician [facility] Work Phone: Start: 01-31-2022 Catheterization of vein [facility] Work Phone: Start: 01-31-2022 Hospital admission, emergency, from emergency room [facility] Work Phone: Start: 01-31-2022 Vital signs measurements [facility] Work Phone: Start: 2018 Adult BMI Follow Up Plan Adult BMI Follow Up Plan [facility] Start: 2018 Diabetic foot examination Diabetic Foot Exam [facility] Start: 2000 COVID-19 Vaccine (#1) COVID-19 Vacci ne (#1) [facility] Start: 2000 Glaucoma screening Diabetic Op hthalmology Exam [facility] Start: 2000 Tobacco Counseling Tobacco Counselin g [facility] Bicarbonate [Moles/volume] in Blood [facility] Work Phone: Delta base, blood [facility] Work Phone: Measurement of venou s partial pressure of carbon dioxide [facility] Work Phone: Measurement of venou s partial pressure of oxygen [facility] Work Phone: Methicillin resistan t Staphylococcus aureus (MRSA) DNA [Presence] in Unspecified specimen by ROQUE with probe detection [facility] Work Phone: Methicillin resistan t Staphylococcus aureus [Presence] in Unspecified specimen by Organism specific culture [facility] Work Phone: Oxygen saturation in Venous blood [facility] Work Phone: Patient Education Tooth Abscess (DC) Diabetic Ketoacidosis (DC) [facility] Work Phone: Patient referral [facility] Work Phone: Vancomycin resistanc e Francisco gene [Presence] by Molecular method [facility] Work Phone: Immunizations Immunization Date Immunization Notes Care Provider Qamar izquierdo 02-02-2023 influenza, injectabl e, quadrivalent, preservative free [facility] Work Phone: [facility] 02-02-2023 tetanus toxoid, redu jonathan diphtheria toxoid, and acellular pertussis vaccine, adsorbed [facility] Work Phone: [facility] 02-02-2023 influenza virus vacc ine, unspecified formulation [facility] 04-20-2020 measles, mumps and rubella virus vaccine Mariaja [facility] 03-25-2020 tetanus toxoid, redu jonathan diphtheria toxoid, and acellular pertussis vaccine, adsorbed [facility] 10-24-2019 influenza, injectabl e, quadrivalent, preservative free [facility] 10-24-2019 influenza virus vacc ine, unspecified formulation [facility] 11-22-2018 influenza, injectabl e, quadrivalent, preservative free [facility] 03-22-2018 influenza virus vacc ine, unspecified formulation [facility] 03-20-2018 influenza, injectabl e, quadrivalent, preservative free [facility] 11-28-2016 influenza, injectabl e, quadrivalent, preservative free [facility] 11-28-2016 meningococcal polysaccharide (groups A, C, Y and W-135) diphtheria toxoid conjugate vaccine (MCV4P) [facility] 09-27-2015 hepatitis A vaccine, pediatric/adolescent dosage, 2 dose schedule [facility] 09-27-2015 Human Papillomavirus 9-valent vaccine [facility] 03-03-2014 Human Papillomavirus 9-valent vaccine [facility] 03-03-2014 tetanus toxoid, redu jonathan diphtheria toxoid, and acellular pertussis vaccine, adsorbed [facility] 12-02-2012 influenza, seasonal, injectable, preservative free [facility] 07-24-2012 hepatitis A vaccine, pediatric/adolescent dosage, 2 dose schedule [facility] 07-24-2012 meningococcal polysaccharide (groups A, C, Y and W-135) diphtheria toxoid conjugate vaccine (MCV4P) [facility] 07-24-2012 tetanus toxoid, redu jonathan diphtheria toxoid, and acellular pertussis vaccine, adsorbed [facility] 09-15-2004 diphtheria, tetanus toxoids and acellular pertussis vaccine [facility] 09-15-2004 measles, mumps and rubella virus [facility] 09-15-2004 poliovirus vaccine, inactivated [facility] 04-16-2002 diphtheria, tetanus toxoids and acellular pertussis vaccine, unspecified formulation [facility] 04-16-2002 haemophilus influenz ae type b vaccine, conjugate unspecified formulation [facility] 04-16-2002 hepatitis B vaccine, pediatric or pediatric/adolescent dosage [facility] 04-16-2002 measles, mumps and rubella virus vaccine [facility] 04-16-2002 poliovirus vaccine, unspecified formulation [facility] 2000 diphtheria, tetanus toxoids and acellular pertussis vaccine, unspecified formulation [facility] 2000 haemophilus influenz ae type b conjugate and Hepatitis B vaccine [facility] 2000 poliovirus vaccine, inactivated [facility] 2000 diphtheria, tetanus toxoids and acellular pertussis vaccine, unspecified formulation [facility] 2000 pneumococcal conjuga te vaccine, 7 valent [facility] 2000 diphtheria, tetanus toxoids and acellular pertussis vaccine, unspecified formulation [facility] 2000 haemophilus influenz ae type b conjugate and Hepatitis B vaccine [facility] 2000 pneumococcal conjuga te vaccine, 7 valent [facility] 2000 poliovirus vaccine, inactivated [facility] Payers Date Payer Category Payer Private Health Insurance [facility] [id number] 2022-Present [phone] [address] [place] [address] [id number] 2021 Medicaid [employer] [id number] 2021-Present [address] [place] [address] [id number] 2021 Medicaid [id number] 2017 Unknown [id number] 2000 Unknown [id number] 2.16.840.1.394271.3.579. 2.593 2000 Unknown [id number] 2.16.840.1.822519.3.579. 2.1259 2000 Unknown [id number] 2.16.840.1.115601.3.579. 2.1259 2000 Unknown [id number] 2.16.840.1.700517.3.579. 2.9 2000 Unknown [id number] 2.16.840.1.265046.3.579. 2.1259 2000 Unknown [id number] 2.16.840.1.819279.3.579. 2.9 2000 Unknown [id number] 2.16.840.1.949287.3.579. 2.1286 2000 Unknown [id number] 2.16.840.1.110946.3.579. 2.1286 2000 Unknown [id number] 2.16.840.1.892944.3.579. 2.1286 2000 Unknown [id number] 2.16.840.1.978395.3.579. 2.6 2000 Unknown [id number] 2.16.840.1.401338.3.579. 2.1286 2000 Unknown [id number] 2.16.840.1.416899.3.579. 2.1285 2000 Unknown [id number] 2.16.840.1.347152.3.579. 2.1286 2000 Unknown [id number] 2.16.840.1.595679.3.579. 2.1286 2000 Unknown [id number] 2.16.840.1.854024.3.579. 2.1286 2000 Unknown [id number] 2.16.840.1.673924.3.579. 2.1286 2000 Unknown [id number] 2.16.840.1.706131.3.579. 2.1286 2000 Unknown [id number] 2.16.840.1.452012.3.579. 2.1286 2000 Unknown [id number] 2.16.840.1.959488.3.579. 2.1286 2000 Unknown [id number] 2.16.840.1.406897.3.579. 2.1286 1959 Unknown [id number] 1959 Unknown [id number] Self-pay Unknown [id number] 2.16.840.1.017875.3.579. 2.139 Social History Date Type Detail Facility Start: 01-31-2022 Tobacco smoking stat [facility] Never smoked tobacco (finding) [facility] Work Phone: Start: 01-31-2022 None [facility] Work Phone: Start: 01-31-2022 < 1 pack per day [facility] Work Phone: Start: 01-31-2022 Yes [facility] Work Phone: Start: 01-31-2022 Nicotine [facility] Work Phone: Start: 2000 Sex Assigned At Female L [facility] Work Phone: Start: 07-22-2022 Tobacco smoking stat [facility] Ex-smoker [facility] History of tobacco use [facility] History of tobacco use Cigarette Smoker P [facility] History of tobacco [facility] Start: 07-22-2022 End: 02-01-2023 Tobacco use and exposure Smokeless tobacco non-user [facility] Start: 01-23-2023 End: 03-26-2023 Alcohol intake Ex-drinker (finding) [facility] Start: 10-11-2019 End: 02-17-2020 History of Social function [facility] Start: 10-11-2019 End: 02-17-2020 Social connection and isolation panel [facility] Do you belong to any clubs or organizations such as congregational groups, unions, fraternal or athletic groups, or school groups? No [facility] Are you now , , , , never or living with a partner? Never [facility] How hard is it for y ou to pay for the very basics like food, housing, medical care, and heating Not hard at all [facility] Do you feel stress - tense, restless, nervous, or anxious, or unable to sleep at night because your mind is troubled all the time - these days [OSQ] Not at all [facility] The thought of jennifer earline myself has occurred to me Never [facility] Start: 12-18-2018 Alcohol Comment occassional [facility] Start: 06-23-2022 [facility] Start: 05-13-2018 Gender identity Identifies as female gender (finding) [facility] Start: 05-13-2018 Sexual orientation Heterosexual (fin ding) [facility] Start: 02-01-2023 Tobacco smoking stat [facility] Smokes tobacco daily [facility] Start: 09-05-2022 Tobacco smoking stat [facility] Occasional tobacco smoker [facility] Start: 09-05-2022 Tobacco Comment 5 or less cigs / day; started smoking at 16yoThinking about quitting [facility] Start: 06-19-2022 Alcohol Comment Denies alcohol use [facility] NEGATED: Highlighted row [facility] Work Phone: Medical Equipment Procedure Code Equipment Code Equipment Origin al Text Equipment Identifier Dates 1 strip by miscellaneous route every 4 (four) hours as needed (illness or hyperglycemia). [id number] Start: 08-30-2022 Use in case of p ump failure [id number] Start: 09-27-2022 End: 03-20-2023 Accu-Chek Fastcl ix Lancets- Use to test blood glucose 8 times daily as directed. [id number] Start: 08-30-2022 End: 03-20-2023 BD Nettie Pen Need les Use as directed to give insulin injections via insulin pen up to 8 times daily [id number] Start: 05-31-2022 5 injections daily [id number] Start: 08-30-2022 End: 03-20-2023 5 injections daily [id number] Start: 03-26-2023 Goals Date Patient Goal Desired Activity /State Personal health goal Comment on above: Formatting of this n ote might be different from the original. Evaluation of progress towards goal: Safe dc transition from hospital to home. Functional Status Date Assessment Result Facility 01-31-2022 Functional status Yes [facility] Work Phone: Mental Status Date Assessment Result Facility 01-31-2022 Cognitive function Oriented to P erson, Place and Time [facility] Work Phone: Clinical Notes 01-31-2022 to 05-07-2023 Telephone Encounter - Joan Mosqueda RN - 05/07/2023 8:52 AM EDTTelephone Encounter - Joan Mosqueda RN - 05/07/2023 8:52 AM Mae Mosqueda RN - 05/07/2023 8:45 AM EDT Note Date & Type Note Facility 05-07-2023 Miscellaneous Notes Savi presented for her final pump education appointment today. Her pump upload is in digital media specialist. To note: she ran out of insulin while at work and continued with insulin injections until this morning. Secondly, she lost her sensors at home (believes her daughter hid them). Not in control IQ and manually checking blood sugars. This morning BG was 253. I gave her a sample dexcom g7 sensor today to get back on control IQ. She is linked in [employer] and was instructed to keep the dank open and running. Thank you. documented in this encounter [facility] 05-07-2023 Telephone encounter Note Savi presented for her final pump education appointment today. Her pump upload is in Re.nooble. To note: she ran out of insulin while at work and continued with insulin injections until this morning. Secondly, she lost her sensors at home (believes her daughter hid them). Not in control IQ and manually checking blood sugars. This morning BG was 253. I gave her a sample dexcom g7 sensor today to get back on control IQ. She is linked in [employer] and was instructed to keep the dank open and running. Thank you. [facility] History of Presen t illness Narrative Insulin Pump Instruct Progress Note Savi Nguyen presented on 05/07/23 for an advanced features training on her insulin pump. The mds rn's Insulin Pump Training Checklist form and the [...] blood sugar check this mornin mg/dL. Her practice director was unable to see data on tconnect. I double checked that she was linked which she is, however, she was not keeping her dank running in the background. I instructed her to keep it open. Pump was uploaded to digital media specialist for review. See checklist for details covered. We reviewed bad site protocol, hyperglycemia and hypoglycemia. [facility] Diabetes and Nutrition Education documented in this encounter [facility] 04-16-2023 Miscellaneous Notes Savi started insulin in her tslim this morning. Blood sugar was 189 and straight across/stable arrow. She is linked through [employer]. I asked that she call into endo office for review in a few days. Her next follow up with your office is not until 06/18/23. Is this acceptable or would you like this moved up? Thank you. Also to note, Savi liked the idea of establishing with Dr. Carbone in [place] when she is transferred to adult care. May is fine. I will keep this open so that I remember to double check she calls in for a review. documented in this encounter [facility] 04-16-2023 Telephone encounter Note Savi started insulin in her tslim this morning. Blood sugar was 189 and straight across/stable arrow. She is linked through [employer]. I asked that she call into endo office for review in a few days. Her next follow up with your office is not until 06/18/23. Is this acceptable or would you like this moved up? Thank you. Also to note, Savi liked the idea of establishing with Dr. Carbone in [place] when she is transferred to adult care. [facility] 04-16-2023 Telephone encounter Note May is fine. I will keep this open so that I remember to double check she calls in for a review. [facility] 04-16-2023 History of Presen t illness Narrative Insulin Pump Instruct Progress Note Savi Nguyen presented on 04/16/23 for an insulin start on her insulin pump. The mds rn's Insulin Pump Training Checklist form and the [...] yes - Savi does not have an practice director appointment until 06/18/23. I will inquire if this should be moved up. I instructed her to call into endo office weekly until rates are matched to BG needs. She is linked to [facility] through Pediatric Endocrinology office. She plans to call endo office tomorrow or Sunday this week. Has final pump appointment scheduled for 05/07/23. [facility] Diabetes and Nutrition Education documented in this encounter [facility] 04-12-2023 Miscellaneous Notes Savi is starting a t:slim pump. Will need a prescription for Humalog vials please. [facility]. Max daily dose will be around 60-70 units daily. Her long acting amount is lower but her bolus amounts are large. Thank you! Please see Humalog vial prescription. [facility]23 Telephone encounter Note Savi is starting a t:slim pump. Will need a prescription for Humalog vials please. Preferred pharmacy [facility]. Max daily dose will be around 60-70 units daily. Her long acting amount is lower but her bolus amounts are large. Thank you! [facility] 04-12-2023 Telephone encounter Note Please see Humalog vial prescription. [facility] 04-12-2023 History of Presen t illness Narrative Insulin Pump Instruct Progress Note Savi Nguyen presented on 04/12/23 for a saline start on her insulin pump. The mds rn's Insulin Pump Training Checklist form and the [...] changes until day of pump appointment 04/15. [facility] Diabetes and Nutrition Education documented in this encounter [facility] 04-05-2023 Miscellaneous Notes Patient has received new Tandem insulin pump and will need training. Please sign pended referral if agreeable for education. Thanks! All set. Thanks documented in this encounter [facility] 04-05-2023 Telephone encounter Note Patient has received new Tandem insulin pump and will need training. Please sign pended referral if agreeable for education. Thanks! [facility] 04-05-2023 Telephone encounter Note All set. Thanks [facility] 04-05-2023 Miscellaneous Notes Pt called saying that they are almost out of Humalog. Pharmacy said they should have 25 days left and would need a new script in order to get more before then. Let me know if you need anything else! documented in this encounter [facility] 04-05-2023 Telephone encounter Note Pt called saying that they are almost out of Humalog. Pharmacy said they should have 25 days left and would need a new script in order to get more before then. Let me know if you need anything else! [facility] 03-20-2023 Miscellaneous Notes Pharmacy called and said they needed sliding scale and specific directions for insulin dosing for current pharmacist to dispense. I have updated script. documented in this encounter [facility] 03-20-2023 Telephone encounter Note Pharmacy called and said they needed sliding scale and specific directions for insulin dosing for current pharmacist to dispense. I have updated script. [facility] 03-20-2023 History of Presen t illness Narrative [...] in 2012 when the patient presented to [facility] at the age of 12. She had [...] available for nausea or vomiting, provider available lamination builder for questions or concerns by calling [phone]. Past admissions for DKA after diagnosis: one. [...] of Asthma Chronic ITP (idiopathic thrombocytopenic purpura) ([facility]) Diabetes type 1, controlled ([facility]) Diabetic ketoacidosis without coma associated with type 1 diabetes mellitus ([facility]) 02/07/2021 DKA (diabetic ketoacidoses) 02/10/2020 DKA, type 1 ([facility]) 10/11/2019 H/O idiopathic thrombocytopenic purpura Hx of in childhood Obesity 07/05/2022 UTI (urinary tract infection) Hx of Social History Social History Narrative Lives with family. No Known Allergies Current Outpatient Medications Medication Sig Dispense Refill acetone, urine, test strip 1 strip by miscellaneous route every 4 (four) hours as needed (illness or hyperglycemia). 100 strip 3 blood-glucose sensor (PayStand G7 SENSOR) device Change sensor every 10 [...] gauge x 5/32 needle BD Nettie Pen [place] Use as directed to give insulin injections via insulin pen up to 8 times daily 300 each 3 acetaminophen (TYLENOL EXTRA STRENGTH) 500 mg tablet Take 2 tablets (1,000 mg total) by mouth every 8 (eight) hours as needed for pain. (Patient not taking: Reported on 02/26/2023) 30 tablet 0 blood-glucose meter (Liv[employer]ik VERIO REFLECT METER) misc 1 Device by [...] each 11 lancets (ACCU-CHEK FASTCLIX LANCET DRUM) [facility] Accu-Chek Fastclix Lancets- Use to test blood glucose 8 times daily as directed. (Patient not taking: Reported on 02/01/2023) 306 each 6 pen needle, diabetic (BD NETTIE 2ND GEN PEN NEEDLE) 32 gauge x 5/32 needle 5 injections daily (Patient not taking: Reported on 11/13/2022) 150 each 11 PNV 19-IRON PS,OKLP-[id number]-GZW ORAL Take 1 tablet by mouth Daily [...] with exam. Lab Results Component Value Date ELGCNUF8E 6.8 03/20/2023 WUBTKCQ8D 5.9% 01/23/2023 LVRQZSO9C 6.7% 11/13/2022 Plan ASSESSMENT AND PLAN: Assessment and Plan: Assess/Plan SmartLinks: aSvi was seen today for follow-up. Diagnoses and all orders for this visit: Type 1 diabetes mellitus with hyperglycemia ([facility]) - POCT Hemoglobin A1c 1. Medications changes: [...] to tolerate fluids, call the office at [phone]. If after office hours call [phone] for lamination builder nurse. Check for ketones. If ketones are [...] diabetes education with yessy HAMILTON at the [facility] Diabetes Education department. Savi and family have [...] SUSANNA Estrada 03/26/232007 documented in this encounter [facility] 03-19-2023 History of Presen t illness Narrative Reason for Appointment: Patient ID: Savi Nguyen is a 22 y.o. female who presents for Post-op Visit (6 week post visit. Delivered c/s 02/16/2023 @ [facility]) Patient presents today for Acute Visit appointment. Current Medications: has a current medication list which includes the following prescription(s): aspirin, insulin glargine, insulin lispro, and pnv plus multivitamin. Medical History: Active Ambulatory Problems Diagnosis Date Noted Anemia 08/03/2022 Diabetic ketoacidosis associated with type 1 diabetes mellitus (HCC) ([facility]) 08/03/2022 Other hammer toe(s) (acquired), unspecified foot 08/03/2022 Type 1 diabetes mellitus ([facility]) 08/03/2022 Type 2 diabetes mellitus without complications ([facility]) 08/03/2022 Resolved Ambulatory Problems Diagnosis Date Noted No Resolved Ambulatory Problems Past Medical History: Diagnosis Date BMI 30.0-30.9,adult Diabetes ([facility]) Diabetes mellitus type 1 ([facility]) DKA, type 1 ([facility]) Encounter for well woman exam with routine gynecological exam 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 ([facility]) 2004 Patient desires Family History Problem Relation [...] by STEPHANE Henriquez on behalf of: STEPHANE Herniquez documented in this encounter [facility] 02-26-2023 History of Presen t illness Narrative [...] 6 wks Encouraged her to call her practice director to help manage blood sugars Follow-up with primary OBGYN in [place] for continued post often care She desires pill for contraception, will discuss with her OB in [place] RTC as needed Yessy Pedersen DO documented in this encounter [facility] 02-23-2023 Miscellaneous Notes This note was [...] any outpatient needs. documented in this encounter [facility] 02-23-2023 Obstetrics Note This note was [...] and to call for any outpatient needs. [facility] 02-20-2023 Miscellaneous Notes This note was [...] to latch again documented in this encounter [facility] 02-20-2023 Obstetrics Note This note was [...] take baby off, try to latch again [facility] 02-01-2022 Note [facility] Medical Records Patient: SAVI NGUYEN [address] : [address] [place], [place] [address] Location: ICU [phone] Unit #: [id number] [facility] #: [id number] Discharge Summary Tee Tamayo Cielo PATEL Patient [...] Reconciliation: New amoxicilli (more content not included)... [facility] 01-31-2022 Note [facility] Medical Records Patient: SAVI NGUYEN [address] : [address] [place], [place] [address] Location: ICU [phone] Unit #: [id number] History and Physical Joe Ulloa CNP Date [...] at 150 ml/h (more content not included)... [facility] Evaluation note Diagnosis Onset Date Dental infection acute Diabetes type I acute Diabetic ketoacidosis acute [facility] Work Phone: Evaluation note* Diagnosis Onset Date Resolution Status Dental infection acute Diabetes type I acute Diabetic ketoacidosis resolv ed [facility] Work Phone: Evaluation note* Diagnosis Pre-existing type 1 diabetes mellitus during in third trimester- Primary History of stillbirth in patient in third trimester, antepartum documented in this encounter [facility] Diagnosis care and examination- Primary documented in this encounter [facility] Diagnosis Postop check Follow-up examination, following unspecified surgery 6 weeks follow-up S/P section Other postprocedural status [facility] Diagnosis Type 1 diabetes mellitus with hyperglycemia (CMS-HCC)- Primary documented in this encounter [facility] Diagnosis Type 1 diabetes mellitus with hyperglycemia (CMS-HCC)- Primary [facility] in [facility] Diagnosis Type 1 diabetes mellitus with hyperglycemia (CMS-HCC) documented in this encounter [facility] Diagnosis Type 1 diabetes mellitus with hyperglycemia (CMS-HCC)- Primary documented in this encounter [facility] Additional Instructions Activity: No restrictions Diet: No restrictions Driving instructions: No driving restrictions Bathing Instructions: No restrictions Follow Up Labs/X Rays/Procedures after discharge: [facility] Work Phone: InstructionsNot on filedocumented in this encounter [facility] filedocumented in this [facility] filedocumented in this encounter [facility] on filedocumented in this encounter [facility] on filedocumented in this encounter [facility] on filedocumented in this encounter [facility] System[facility] for referral (narrative)* Consultation (Routine) - Pending Review Specialty Diagnoses / Procedures Referred By Yefri gibbs Referred To Contact Endocrinology, Diabetes & Metabolism Diagnoses Type 1 diabetes mellitus with hyperglycemia ([facility]) Feli Nguyen, DRIVE THRU ORDER TAKER-SUPERVISOR CORRESPONDENCE SECTION [address] [place] [address] [facility] [address] [place] [address] Referral ID Status Reason Start Date Expiration Date Visits Requested Visits Authorized [id number] Pending Review Specialty Services Required 04/05/2023 04/04/2024 1 1 Electronically signed by Feli Nguyen DRIVE THRU ORDER TAKER-SUPERVISOR CORRESPONDENCE SECTION at 04/05/2023 3:[address] [facility] Summary Purpose Family History No Family History Records Found Relationship Condition Age at Onset Recorded Date/T john Not Specified No pertinent family history Unknown Advance Directives No Advanced Directives Records Found Advance Directive Response Recorded Date/ Time [facility] DNR Comfort Care No Directive, No SS Referral February 01, 2022 1:55pm [facility] DNR Comfort Ca re Arrest No Directive, No SS Referral February 01, 2022 1:55p m Living Will Unknown January 31, 022 4:13am Durable Power of Occupational Health And Safety Manager [facility] Health Care No Directive, No SS Referral [...] patient in third trimester, antepartum Procedures US [facility] with or without consult Eliane Slaughter MD [address], [address] [place] [id number] [facility] Maternal Med [address] [place] [address] Referral ID Status Reason Start Date Expiration Date V isits Requested Visits Authorized [id number] Pending Review 02/01/2023 02/01/2024 1 1 Additional Source Comments INFORMATION SOURCE (unrecogn ized section and content) DATE CREATED AUTHOR 06/28/2021 [facility] DATE CREATED AUTHOR AUTHOR'S ORGANIZ ATION 02/01/2022 [facility] DATE CREATED AUTHOR AUTHOR'S ORGANIZ ATION 03/20/2023 [facility] EPIC DATE CREATED AUTHOR AUTHOR'S ORGANIZ ATION 05/07/2023 [facility] DATE CREATED AUTHOR AUTHOR'S ORGANIZ ATION 08/03/2023 [facility] DATE CREATED AUTHOR AUTHOR'S ORGANIZ ATION 08/24/2023 [facility] Goals (unrecognized section and content) Goals may be documented in a n alternate sectionGoals may be documented in an alternate section Care Teams (unrecognized sec tion and content) Quoter Relationship Specialty Start Date End Date Services, [facility] [address] [place] PCP - General Family Medicine 03/03/18 Quoter Relationship Specialty Start Date End Date Services, [facility] [address] [place] PCP - General Family Medicine 03/03/18 Quoter Relationship Specialty Start Date End Date Services, [facility] [address] [place] PCP - General Family Medicine 03/03/18 Quoter Relationship Specialty Start Date End Date Services, [facility] [address] [place] PCP - General Family Medicine 03/03/18 Quoter Relationship Specialty Start Date End Date Services, [facility] [address] [place] PCP - General Family Medicine 03/03/18 Quoter Relationship Specialty Start Date End Date Services, [facility] [address] [place] PCP - General Family Medicine 03/03/18 Quoter Relationship Specialty Start Date End Date Services, [address] PCP - General [facility] Medicine 03/03/18 Quoter Relationship Specialty Start Date End Date [address] PCP - General [facility] Medicine 03/03/18 Quoter Relationship Specialty Start Date End Date Services, [address] PCP - General Family Medicine 03/03/18 Reason for Visit (unrecogniz ed section and content) Reason Comments Care Reason Comments Post-op Visit 6 week post v isit. Delivered c/s 02/16/2023 @ [facility] Reason Comments Follow-up diabetes Reason Onset Date Comments Med Refill 03/20/2023 Reason Onset Date Comments Med Refill 04/05/2023 Reason Comments Pump Training 1 Specialty Diagnoses / Procedures Referred By Yefri t Referred To Contact Endocrinology, Diabetes & Metabolism Diagnoses Type 1 diabetes mellitus with hyperglycemia ([facility]) Feli Nguyen, DRIVE THRU ORDER TAKER-SUPERVISOR CORRESPONDENCE SECTION [address] [place] [address], [address] [place] [address] [facility] [address] [place] [address], [address] [place] [address] Referral ID Status Reason Start Date Expiration Date Visits Requested Visits Authorized [id number] Pending Review Specialty Services Required 04/05/2023 04/04/2024 [...] BE BASED ON THE PRIMARY CLINICAL RECORDS. [employer] provides no warranty or guarantee of the accuracy or completeness of information in this document.
[2023-11-04 13:01] LABS: Glucometer 478 mg/dL (74-106)
--- NOTE | 2023-11-04 13:30 | P.HP_ITS ---
HPI H&P: HPI History of Present Illness Chief complaint: symptoms of uti, DKA Narrative: 3-year-old female with past medical history of type 1 diabetes, supposed to be on insulin pump but could not use her pump for 1 week because it was malfunctioning. For past 1 week, she has been using short acting insulin with meals. Patient reports her symptoms started about a week ago with nausea, poor appetite and generalized abdominal pain. She reports generalized weakness and tiredness. She was drowsy during our interaction but wakes up easily on minimal stimulus. She denies feeling nauseous or having any active symptoms at this time. She is familiar with diabetic ketoacidosis and according to her it has been a while since she had DKA. Workup in ER revealed severe diabetic ketoacidosis with bicarb of only 8 and venous pH of only 7.0. She is being admitted to ICU for close hemodynamic monitoring and treatment of diabetic ketoacidosis. She received 2 L IV fluid boluses in ER. I ordered 2 more liters of IV fluid normal saline boluses for her. She will be started on IV insulin continuous infusion as per DKA protocol with close monitoring of her urine output, serum electrolytes, Accu-Cheks every 1 hour. Opioid HPI Opioid Management Most Recent Pain and Opioid Data: No Data to Display Review of Systems ROS Status of ROS 10 or more systems reviewed and unremark able except as noted in history and below [facility] Medical History (Updated 11/04/23 @ 13:37 by Shaikh Crystal MD) Type 1 diabetes ?E10.9 - Type 1 diabetes mellitus without complications (ICD-10) H/O urinary tract infection ?Z87.440 - Personal history of urinary (tract) infections (ICD-10) Social History (Updated 11/04/23 @ 13:34 by Shaikh Crystal MD) Within the past year, how often did you have a drink containing alcohol: never Within the past year, how many standard drinks containing alcohol did you have on a typical day: 1 or 2 Within the past year, how often did you have six or more drinks on one occasion: never Total score: 0 Score interpretation: A score less than 3 is consistent with normal alcohol consumption. Smoking status: Current every day smoker Non-prescribed substance use: denies use Little interest or pleasure in doing things: not at all Feeling down, depressed, or hopeless: not at all Meds Home Medications and Allergies Home Medications ?Medication ?Instructions ?Recorded ?Confirmed ?Type insulin glargine 100 unit/mL 20 unit subcut QPM 01/23/23 11/04/23 History subcutaneous solution (Lantus U-100 Insulin) insulin glargine 100 unit/mL 22 unit subcut QAM 01/23/23 11/04/23 History subcutaneous solution (Lantus U-100 Insulin) cephalexin 500 mg capsule 500 mg PO Q8H 10 days #30 caps 10/31/23 11/04/23 Rx fluconazole 150 mg tablet 150 mg PO ONCE 1 day #1 tab 10/31/23 11/04/23 Rx hydrocodone 5 mg-acetaminophen 325 1 tab PO Q6H PRN pain 3 days #12 10/31/23 11/04/23 Rx mg tablet tabs ondansetron 4 mg disintegrating 4 mg PO Q6H PRN nausea and 10/31/23 11/04/23 Rx tablet vomiting #12 tabs blood-glucose sensor (Dexcom G7 11/04/23 11/04/23 History Sensor device) insulin lispro 100 unit/mL 1 - 66 sliding scale dose 11/04/23 11/04/23 History subcutaneous solution continuous subcutaneous infusion Q24H Allergies Allergy/AdvReac Type Severity Reaction Status Date / Time No Known Drug Allergies Allergy Verified 11/04/23 07:23 Exam Constitutional Vital Signs, click to edit/add: Last Vital Signs Temp 97.6 F 11/04/23 07:24 Pulse 108 H 11/04/23 10:36 Resp 19 11/04/23 10:36 BP 134/73 11/04/23 10:36 Pulse Ox 99 11/04/23 10:36 O2 Del Method Room Air 11/04/23 09:58 Documenting provider has reviewed patient's vital signs: yes Common normals: no apparent distress and oriented x3 General appearance: cooperative, lethargic and ill appearing [facility] Common normals: normocephalic and head/scalp atraumatic Head and scalp: normocephalic and atraumatic Eye Common normals: conjunctivae normal and no scleral icterus Conjunctiva: conjunctiva(e) normal Respiratory Common normals: normal respiratory effort and clear to auscultation bilaterally Effort & inspection: able to speak in complete sentences Auscultation: clear to auscultation bilaterally Cardio Common normals: regular rate, S1 normal heart sound and S2 normal heart sound Rate: regular rate Heart sounds: S1 normal and S2 normal GI Common normals: Normal to inspection, nondistended, normoactive bowel sounds present, soft to palpation, non-tender and no hepatosplenomegaly Palpation: soft and no hepatosplenomegaly Extremity Common normals: no clubbing, cyanosis or edema Neuro Common normals: oriented x3, moves all extremities and no focal motor deficits Sensorium/orientation: somnolent Psych Common normals: mental status grossly normal, thought process normal, denies hallucinations, denies homicidal ideation and denies suicidal ideation Results Labs Labs: Short CBC 11/04/23 Range/Units 08:22 WBC 16.8 H (4.0-11.0) 10^3/uL Hgb 16.6 H (12.0-16.0) g/dL Hct 49.0 H (36.0-48.0) % Plt Count 421 (150-450) 10^3/uL BMP 11/04/23 08:22 Sodium 134 L Potassium 5.3 H Chloride 89 L Carbon Dioxide 8.3 L BUN 24.0 H Creatinine 2.08 H Glucose 942 H* Calcium 11.0 H Urine 11/04/23 Range/Units 07:38 Urine Color Lt. yellow (YELLOW) Urine Clarity Clear (CLEAR) Urine pH 5.5 (5.0-9.0) Ur Specific [place] 1.025 (1.005-1.025) Urine Protein Negative (NEG/TRACE) mg/dL Urine Glucose (UA) >=1000 A (NEGATIVE) mg/dL ABG ABG results: 11/04/23 09:12 VBG pH 7.094 L VBG pCO2 29.6 L Assessment and Plan Assessment and Plan (1) DKA (diabetic ketoacidosis): Assessment and Plan: Severe metabolic acidosis, Venous pH of only 7.03, serum HCO3 is only 8. Critically ill, at high risk of cerebral edema, respiratory failure and . Ordered 2 L IVF bolus. Started patient 0.45 NS at 200 /hr after initial IVF bolus. BMP q4, POC glucose q1H. Needs close hemodynamic monitoring. Will order one time dose of 100 meq HCO3 IV push to help with acidosis. Qualifiers: Diabetes mellitus type: type 1 Diabetes mellitus complication detail: without coma Qualified Code(s): E10.10 - Type 1 diabetes mellitus with ketoacidosis without coma (2) Leukocytosis: Assessment and Plan: Likely reactive due to severe dehydration. No evidence of infection. Monitor closely. No need for abx. Qualifiers: Leukocytosis type: leukemoid reaction Qualified Code(s): D72.823 - Leukemoid reaction (3) DANNY (acute kidney injury): Assessment and Plan: Normal renal function at baseline. Presented with Cr of 2. likely pre renal. C/w IVF. Monitor renal function Plan Over 33 minutes of critical time spent on patient's assessment, evaluation, treatment and co ordination of care. Patient has severe metabolic acidosis, DKA with DANNY, at high risk of clinical progression including . Needs close hemodynamic monitoring in ICU
[2023-11-04 13:32] LABS: BUN Creatinine Ratio 12.6; Calcium 10.4 mg/dL (8.5-10.1); Carbon Dioxide 13.2 mmol/L (21.0-32.0); Chloride 102 mmol/L (98-107); Estimated GFR (African America 44 (>=60); Estimated GFR (Non-African Ame 36 (>=60); Magnesium 2.3 mg/dL (1.8-2.4); Phosphorus 3.8 mg/dL (2.6-4.7); Potassium 4.2 mmol/L (3.5-5.1); Sodium 141 mmol/L (136-145)
[2023-11-04 13:34] LABS: Glucose 536 mg/dL (74-106)
[2023-11-04 14:01] LABS: Glucometer 405 mg/dL (74-106)
[2023-11-04 15:00] LABS: Glucometer 302 mg/dL (74-106)
[2023-11-04 15:43] LABS: Glucometer 234 mg/dL (74-106)
[2023-11-04] MEDS: SODIUM CHLORIDE 0.45 % 1,000 ML 200 ML IV (16:01)
[2023-11-04 17:16] LABS: Anion Gap 17.1; BUN Creatinine Ratio 10.7; Calcium 8.6 mg/dL (8.5-10.1); Carbon Dioxide 20.4 mmol/L (21.0-32.0); Chloride 111 mmol/L (98-107); Estimated GFR (African America 56 (>=60); Estimated GFR (Non-African Ame 47 (>=60); Glucose 228 mg/dL (74-106); Magnesium 1.8 mg/dL (1.8-2.4); Potassium 3.5 mmol/L (3.5-5.1); Sodium 145 mmol/L (136-145)
[2023-11-04 17:21] LABS: Phosphorus 1.4 mg/dL (2.6-4.7)
[2023-11-04] MEDS: DEXTROSE 5 %-0.45 % SOD CHLORD 1,000 ML 200 ML IV ×2 (17:32→22:33)
[2023-11-04] MEDS: SODIUM BICARBONATE 8.4 % 50 MEQ/50 ML SYRINGE 100 MEQ IV (17:48)
[2023-11-04 18:21] LABS: Glucometer 213 mg/dL (74-106)
--- NOTE | 2023-11-04 19:40 | PC.NURSE ---
Nursing note from admission to 190: 1226-patient to room 271 by ER cart. Report obtained from Silvia TEE. 1548-Dr. Rojas updated on patient's blood glucose and need for IVF. New orders placed. 172-Dr. Rojas updated on critical phosphorous level. 174-Dr. Rojas clarified bicarb order and phosphorous order. Instructed to inform him if pharmacy can complete phosphorous order. 182-Dr. Rojas updated that pharmacy will be in to make phosphorous order.
[2023-11-04] MEDS: POTASSIUM PHOS,M-BASIC-D-BASIC 30 MMOL in 0.9 % SODIUM CHLORIDE 250 ML 43.333 MMOL IV (19:55)
--- NOTE | 2023-11-04 20:05 | PC.NURSE ---
1600-Vanessa monitor placed by Rosie TEE stewarding supervisor.
[2023-11-04 22:32] LABS: Anion Gap 13.3; BUN Creatinine Ratio 10.4; Calcium 8.3 mg/dL (8.5-10.1); Carbon Dioxide 25.3 mmol/L (21.0-32.0); Chloride 112 mmol/L (98-107); Estimated GFR (African America 59 (>=60); Estimated GFR (Non-African Ame 49 (>=60); Glucose 288 mg/dL (74-106); Magnesium 1.7 mg/dL (1.8-2.4); Potassium 3.6 mmol/L (3.5-5.1); Sodium 147 mmol/L (136-145)
[2023-11-04] MEDS: HEPARIN SODIUM (PORCINE) 5,000 UNIT/ML VIAL 5000 UNIT SUBQ (22:44)
[2023-11-04] MEDS: INSULIN REGULAR IN 0.9 % NACL 100 UNIT/100 ML PLAST..BAG IV (22:45)
[2023-11-05] VITALS (36 sets, daily range): BP systolic 110–130; BP diastolic 66–87; PULSE 56–109; TEMP 36.4–36.9; O2SAT 96–99
[2023-11-05 01:19] LABS: Glucometer 270 mg/dL (74-106)
--- NOTE | 2023-11-05 01:35 | PC.NURSE ---
I had to replace the Vanessa d/t the scanner was malfunctioning and would not give a glucose reading.
[2023-11-05 01:42] LABS: Anion Gap 11.4; BUN Creatinine Ratio 10.4; Calcium 7.8 mg/dL (8.5-10.1); Chloride 110 mmol/L (98-107); Estimated GFR (African America >60 (>=60); Estimated GFR (Non-African Ame 53 (>=60); Glucose 277 mg/dL (74-106); Magnesium 1.5 mg/dL (1.8-2.4); Phosphorus 2.7 mg/dL (2.6-4.7); Potassium 3.4 mmol/L (3.5-5.1); Sodium 143 mmol/L (136-145)
[2023-11-05 02:53] LABS: Glucometer 250 mg/dL (74-106)
[2023-11-05] MEDS: MAGNESIUM SULFATE/D5W 1 GM/100 ML PREMIX IV (03:07)
[2023-11-05] MEDS: DEXTROSE 5 %-0.45 % SOD CHLORD 1,000 ML 200 ML IV (03:19)
[2023-11-05 04:14] LABS: Glucometer 272 mg/dL (74-106)
[2023-11-05 05:18] LABS: Glucometer 267 mg/dL (74-106)
[2023-11-05 05:32] LABS: Basophils Absolute Auto 0.1 10^3/uL (0.0-0.1); Basophils Percent Auto 0.4 % (0.2-2.0); Eosinophils Absolute Auto 0.1 10^3/uL (0.0-0.7); Eosinophils Percent Auto 0.3 % (0.9-7.0); Hematocrit 33.4 % (36.0-48.0); Hemoglobin 11.8 g/dL (12.0-16.0); Immature Granulocytes Abs Auto 0.09 10^3/uL (0.00-0.03); Immature Granulocytes Pct Auto 0.6 % (0.0-0.5); Lymphocytes Absolute Auto 2.5 10^3/uL (1.2-3.8); Lymphocytes Percent Auto 15.3 % (20.5-60.0); Mean Corpuscular HGB Conc 35.3 g/dL (29.9-35.2); Mean Corpuscular Hemoglobin 27.2 pg (26.7-34.0); Mean Platelet Volume 11.2 fL (9.5-13.5); Monocytes Percent Auto 6.1 % (1.7-12.0); Neutrophils Absolute Auto 12.5 10^3/uL (1.4-6.5); Neutrophils Percent Auto 77.3 % (43.0-75.0); Platelet Count 272 10^3/uL (150-450); Red Blood Count 4.34 10^6/uL (4.20-5.40); Red Cell Distribution Width 13.5 % (11.0-15.0); White Blood Count 16.1 10^3/uL (4.0-11.0)
[2023-11-05] MEDS: ONDANSETRON PF 4 MG/2 ML VIAL IV (05:38)
[2023-11-05] MEDS: HEPARIN SODIUM (PORCINE) 5,000 UNIT/ML VIAL 5000 UNIT SUBQ ×3 (05:46→21:57)
[2023-11-05 05:50] LABS: Alanine Aminotransferase 11 U/L (14-59); Albumin Globulin Ratio 0.7; Albumin Level 2.5 g/dL (3.4-5.0); Alkaline Phosphatase 108 U/L (46-116); Anion Gap 10.9; Aspartate Amino Transferase 8 U/L (15-37); BUN Creatinine Ratio 9.8; Bilirubin Total 0.3 mg/dL (0.2-1.0); Calcium 7.9 mg/dL (8.5-10.1); Carbon Dioxide 24.2 mmol/L (21.0-32.0); Chloride 108 mmol/L (98-107); Estimated GFR (African America >60 (>=60); Estimated GFR (Non-African Ame >60 (>=60); Globulin 3.7 g/dL; Glucose 271 mg/dL (74-106); Magnesium 1.9 mg/dL (1.8-2.4); Potassium 3.1 mmol/L (3.5-5.1); Sodium 140 mmol/L (136-145); Total Protein 6.2 g/dL (6.4-8.2)
[2023-11-05 05:52] LABS: Phosphorus 1.2 mg/dL (2.6-4.7)
[2023-11-05] MEDS: POTASSIUM PHOS,M-BASIC-D-BASIC 30 MMOL in 0.9 % SODIUM CHLORIDE 250 ML 43.333 MMOL IV (07:29)
[2023-11-05] MEDS: INSULIN DETEMIR 300 UNIT/3 ML INSULN.PEN 35 UNIT SUBQ (07:33)
[2023-11-05 07:37] LABS: Glucometer 268 mg/dL (74-106)
[2023-11-05 08:27] LABS: Glucometer 295 mg/dL (74-106)
[2023-11-05] MEDS: SODIUM CHLORIDE 0.45 % 1,000 ML 200 ML IV (08:31)
--- NOTE | 2023-11-05 09:36 | P.IMPN_ITS ---
Progress Note: A&P Assessment and Plan (1) DKA (diabetic ketoacidosis): Assessment and Plan: Presented with pH 7.0, AG of 42. Gap closed this morning. Transitioned to SQ insulin. Ordered 35 units Lantus. Started on aspart q6h. Advanced diet to full liquid. Decrease IVF to 150 /hr. Monitor FSBS closely to ensure blood glucose is well controlled and she does not go back into DKA. Qualifiers: Diabetes mellitus complication detail: without coma Diabetes mellitus type: type 1 Qualified Code(s): E10.10 - Type 1 diabetes mellitus with ketoac idosis without coma (2) Leukocytosis: Assessment and Plan: Persistent. No evidence of infection. Monitor w/o abx. Qualifiers: Leukocytosis type: leukemoid reaction Qualified Code(s): D72.823 - Leukemoid reaction (3) DANNY (acute kidney injury): Assessment and Plan: Pre renal due to dehydration from DKA. Improving. 1.12 today - more or less normal now. (4) Hypokalemia: Assessment and Plan: Replete as needed (5) Hypophosphatemia: Assessment and Plan: Replete as needed Plan Transfer to med surg floor. Doing well today. Patient will need close monitoring for a minimum of 24 hours to ensure she remains out of DKA,her blood glucose are well controlled and her nausea/vomiting improves so that she can have adequate PO intake. Internal Medicine - PN: Subj Subjective Interval history: Seen and examined. Feeling better today. Still nauseous and had 1-2 episodes of vomiting. Doing well otherwise. Exam Constitutional Vital Signs, click to edit/add: Last Vital Signs Temp 97.5 F L 11/05/23 04:18 Pulse 83 11/05/23 08:00 Resp 14 11/05/23 04:18 BP 130/87 11/05/23 07:37 Pulse Ox 97 11/05/23 04:18 O2 Del Method Room Air 11/05/23 04:18 Documenting provider has reviewed patient's vital signs: yes Common normals: no apparent distress and oriented x3 General appearance: cooperative and lethargic Respiratory Common normals: normal respiratory effort and clear to auscultation bilaterally Effort & inspection: able to speak in complete sentences Auscultation: clear to auscultation bilaterally Cardio Common normals: regular rate, S1 normal heart sound and S2 normal heart sound Rate: regular rate Heart sounds: S1 normal and S2 normal GI Common normals: Normal to inspection, nondistended, normoactive bowel sounds present, soft to palpation, non-tender and no hepatosplenomegaly Palpation: soft and no hepatosplenomegaly Extremity Common normals: no clubbing, cyanosis or edema Neuro Common normals: oriented x3, moves all extremities and no focal motor deficits Sensorium/orientation: somnolent Psych Common normals: mental status grossly normal, thought process normal, denies hallucinations, denies homicidal ideation and denies suicidal ideation Internal Medicine - PN: Obj Da Labs Labs: Laboratory Results - last 24 hr 11/04/23 11/04/23 11/04/23 08:22 09:12 12:11 WBC RBC Hgb Hct MCV MCH MCHC RDW Plt Count MPV Neut % (Auto) Lymph % (Auto) [place] % (Auto) Eos % (Auto) Baso % (Auto) Neut # (Auto) Lymph # (Auto) [place] # (Auto) Eos # (Auto) Baso # (Auto) Abs Immat Gran (auto) Imm/Tot Granulo (auto) Sodium Potassium Chloride Carbon Dioxide Anion Gap BUN Creatinine Est GFR ( Amer) Est GFR (Non-Af Amer) BUN/Creatinine Ratio Glucose Estimat Average Glucose 278 Hemoglobin A1c 11.3 H Calcium Phosphorus Magnesium Total Bilirubin AST ALT Alkaline Phosphatase Total Protein Albumin Globulin Albumin/Globulin Ratio Acetone, Qual Large A POC Glucose 548 H* 11/04/23 11/04/23 11/04/23 13:01 13:59 14:58 WBC RBC Hgb Hct MCV MCH MCHC RDW Plt Count MPV Neut % (Auto) Lymph % (Auto) [place] % (Auto) Eos % (Auto) Baso % (Auto) Neut # (Auto) Lymph # (Auto) [place] # (Auto) Eos # (Auto) Baso # (Auto) Abs Immat Gran (auto) Imm/Tot Granulo (auto) Sodium 141 Potassium 4.2 Chloride 102 Carbon Dioxide 13.2 L Anion Gap 30.0 BUN 22.0 H Creatinine 1.74 H Est GFR ( Amer) 44 L Est GFR (Non-Af Amer) 36 L BUN/Creatinine Ratio 12.6 Glucose 536 H* Estimat Average Glucose Hemoglobin A1c Calcium 10.4 H Phosphorus 3.8 Magnesium 2.3 Total Bilirubin AST ALT Alkaline Phosphatase Total Protein Albumin Globulin Albumin/Globulin Ratio Acetone, Qual POC Glucose 478 H 405 H 302 H 11/04/23 11/04/23 11/04/23 15:41 16:50 18:19 WBC RBC Hgb Hct MCV MCH MCHC RDW Plt Count MPV Neut % (Auto) Lymph % (Auto) [place] % (Auto) Eos % (Auto) Baso % (Auto) Neut # (Auto) Lymph # (Auto) [place] # (Auto) Eos # (Auto) Baso # (Auto) Abs Immat Gran (auto) Imm/Tot Granulo (auto) Sodium 145 Potassium 3.5 Chloride 111 H Carbon Dioxide 20.4 L Anion Gap 17.1 BUN 15.0 Creatinine 1.40 H Est GFR ( Amer) 56 L Est GFR (Non-Af Amer) 47 L BUN/Creatinine Ratio 10.7 Glucose 228 H Estimat Average Glucose Hemoglobin A1c Calcium 8.6 Phosphorus 1.4 L* Magnesium 1.8 Total Bilirubin AST ALT Alkaline Phosphatase Total Protein Albumin Globulin Albumin/Globulin Ratio Acetone, Qual POC Glucose 234 H 213 H 11/04/23 11/05/23 11/05/23 21:10 01:10 01:16 WBC RBC Hgb Hct MCV MCH MCHC RDW Plt Count MPV Neut % (Auto) Lymph % (Auto) [place] % (Auto) Eos % (Auto) Baso % (Auto) Neut # (Auto) Lymph # (Auto) [place] # (Auto) Eos # (Auto) Baso # (Auto) Abs Immat Gran (auto) Imm/Tot Granulo (auto) Sodium 147 H 143 Potassium 3.6 3.4 L Chloride 112 H 110 H Carbon Dioxide 25.3 25.0 Anion Gap 13.3 11.4 BUN 14.0 13.0 Creatinine 1.34 H 1.25 H Est GFR ( Amer) 59 L >60 Est GFR (Non-Af Amer) 49 L 53 L BUN/Creatinine Ratio 10.4 10.4 Glucose 288 H 277 H Estimat Average Glucose Hemoglobin A1c Calcium 8.3 L 7.8 L Phosphorus 2.0 L 2.7 Magnesium 1.7 L 1.5 L Total Bilirubin AST ALT Alkaline Phosphatase Total Protein Albumin Globulin Albumin/Globulin Ratio Acetone, Qual POC Glucose 270 H 11/05/23 11/05/23 11/05/23 02:51 04:11 05:10 WBC 16.1 H RBC 4.34 Hgb 11.8 L Hct 33.4 L MCV 77.0 L MCH 27.2 MCHC 35.3 H RDW 13.5 Plt Count 272 MPV 11.2 Neut % (Auto) 77.3 H Lymph % (Auto) 15.3 L [place] % (Auto) 6.1 Eos % (Auto) 0.3 L Baso % (Auto) 0.4 Neut # (Auto) 12.5 H Lymph # (Auto) 2.5 [place] # (Auto) 1.0 H Eos # (Auto) 0.1 Baso # (Auto) 0.1 Abs Immat Gran (auto) 0.09 H Imm/Tot Granulo (auto) 0.6 H Sodium 140 Potassium 3.1 L Chloride 108 H Carbon Dioxide 24.2 Anion Gap 10.9 BUN 11.0 Creatinine 1.12 H Est GFR ( Amer) >60 Est GFR (Non-Af Amer) >60 BUN/Creatinine Ratio 9.8 Glucose 271 H Estimat Average Glucose Hemoglobin A1c Calcium 7.9 L Phosphorus 1.2 L* Magnesium 1.9 Total Bilirubin 0.3 AST 8 L ALT 11 L Alkaline Phosphatase 108 Total Protein 6.2 L Albumin 2.5 L Globulin 3.7 Albumin/Globulin Ratio 0.7 Acetone, Qual POC Glucose 250 H 272 H 11/05/23 11/05/23 11/05/23 05:14 07:32 08:27 WBC RBC Hgb Hct MCV MCH MCHC RDW Plt Count MPV Neut % (Auto) Lymph % (Auto) [place] % (Auto) Eos % (Auto) Baso % (Auto) Neut # (Auto) Lymph # (Auto) [place] # (Auto) Eos # (Auto) Baso # (Auto) Abs Immat Gran (auto) Imm/Tot Granulo (auto) Sodium Potassium Chloride Carbon Dioxide Anion Gap BUN Creatinine Est GFR ( Amer) Est GFR (Non-Af Amer) BUN/Creatinine Ratio Glucose Estimat Average Glucose Hemoglobin A1c Calcium Phosphorus Magnesium Total Bilirubin AST ALT Alkaline Phosphatase Total Protein Albumin Globulin Albumin/Globulin Ratio Acetone, Qual POC Glucose 267 H 268 H 295 H
[2023-11-05] MEDS: POTASSIUM CHLORIDE 10 MEQ ER TABLET 40 MEQ PO (09:48)
--- NOTE | 2023-11-05 10:08 | CM.NOTE ---
Rounds made with Dr. Rojas, no discharge today. Pt will wean off insulin drip and increase diet today.
[2023-11-05] MEDS: PROMETHAZINE HCL 25 MG in 0.9 % SODIUM CHLORIDE 50 ML 204 MG IV (10:32)
[2023-11-05] MEDS: PANTOPRAZOLE SODIUM 40 MG VIAL IV (10:32)
[2023-11-05 11:31] LABS: Glucometer 295 mg/dL (74-106)
[2023-11-05] MEDS: INSULIN ASPART 300 UNIT/3 ML PEN SUBQ ×2 (11:43→17:22)
[2023-11-05 15:10] LABS: Anion Gap 12.9; BUN Creatinine Ratio 6.4; Carbon Dioxide 22.6 mmol/L (21.0-32.0); Chloride 106 mmol/L (98-107); Estimated GFR (African America >60 (>=60); Estimated GFR (Non-African Ame >60 (>=60); Glucose 273 mg/dL (74-106); Potassium 3.5 mmol/L (3.5-5.1); Sodium 138 mmol/L (136-145)
[2023-11-05] MEDS: SODIUM CHLORIDE 0.45 % 1,000 ML 150 ML IV ×2 (15:10→21:57)
[2023-11-05 17:05] LABS: Glucometer 241 mg/dL (74-106)
--- NOTE | 2023-11-05 17:41 | PC.NURSE ---
report called to mikey on [facility]. pt taken via wheelchair with belongings to [facility].
--- NOTE | 2023-11-05 17:53 | PC.NURSE ---
1745 patient transferred out from icu at this time.
[2023-11-06] VITALS (14 sets, daily range): BP systolic 119–127; BP diastolic 80; PULSE 44–74; TEMP 36.9; O2SAT 96–99
[2023-11-06] MEDS: INSULIN ASPART 300 UNIT/3 ML PEN SUBQ ×3 (00:25→12:07)
[2023-11-06] MEDS: SODIUM CHLORIDE 0.45 % 1,000 ML 150 ML IV ×2 (04:57→11:09)
[2023-11-06] MEDS: HEPARIN SODIUM (PORCINE) 5,000 UNIT/ML VIAL 5000 UNIT SUBQ ×2 (05:47→14:09)
[2023-11-06 06:53] LABS: Basophils Absolute Auto 0.1 10^3/uL (0.0-0.1); Basophils Percent Auto 0.6 % (0.2-2.0); Eosinophils Percent Auto 0.2 % (0.9-7.0); Hematocrit 34.5 % (36.0-48.0); Hemoglobin 12.1 g/dL (12.0-16.0); Immature Granulocytes Abs Auto 0.05 10^3/uL (0.00-0.03); Immature Granulocytes Pct Auto 0.6 % (0.0-0.5); Lymphocytes Absolute Auto 2.3 10^3/uL (1.2-3.8); Lymphocytes Percent Auto 25.6 % (20.5-60.0); Mean Corpuscular HGB Conc 35.1 g/dL (29.9-35.2); Mean Corpuscular Hemoglobin 26.6 pg (26.7-34.0); Mean Corpuscular Volume 75.8 fL (81.0-99.0); Mean Platelet Volume 10.5 fL (9.5-13.5); Monocytes Absolute Auto 0.4 10^3/uL (0.3-0.8); Monocytes Percent Auto 4.2 % (1.7-12.0); Neutrophils Absolute Auto 6.1 10^3/uL (1.4-6.5); Neutrophils Percent Auto 68.8 % (43.0-75.0); Platelet Count 213 10^3/uL (150-450); Red Blood Count 4.55 10^6/uL (4.20-5.40); Red Cell Distribution Width 13.6 % (11.0-15.0); White Blood Count 8.8 10^3/uL (4.0-11.0)
[2023-11-06 07:08] LABS: Alanine Aminotransferase 26 U/L (14-59); Albumin Globulin Ratio 0.8; Albumin Level 2.4 g/dL (3.4-5.0); Alkaline Phosphatase 110 U/L (46-116); Anion Gap 10.4; Aspartate Amino Transferase 50 U/L (15-37); Bilirubin Total 0.4 mg/dL (0.2-1.0); Calcium 7.5 mg/dL (8.5-10.1); Carbon Dioxide 24.8 mmol/L (21.0-32.0); Chloride 103 mmol/L (98-107); Estimated GFR (African America >60 (>=60); Estimated GFR (Non-African Ame >60 (>=60); Globulin 3.1 g/dL; Glucose 296 mg/dL (74-106); Potassium 3.2 mmol/L (3.5-5.1); Sodium 135 mmol/L (136-145); Total Protein 5.5 g/dL (6.4-8.2)
[2023-11-06] MEDS: POTASSIUM CHLORIDE 10 MEQ ER TABLET 40 MEQ PO (08:21)
[2023-11-06] MEDS: POTASSIUM CHLORIDE 40 MEQ in 0.9 % SODIUM CHLORIDE 250 ML 67.5 MEQ IV (08:22)
[2023-11-06] MEDS: ONDANSETRON PF 4 MG/2 ML VIAL IV ×2 (10:36→17:25)
[2023-11-06] MEDS: PANTOPRAZOLE SODIUM 40 MG VIAL IV (11:10)
--- NOTE | 2023-11-06 11:58 | CM.NOTE ---
Rounds made with Dr. Rojas, pt c/o decreased appetite this AM. Dr. Rojas discussed with pt A1C results and importance of BS control. Pt had appointment with her forest fire fighters dispatcher last week but had to cancel, pt has not rescheduled appointment. Dr. Rojas discussed also diet control with pt, pt admits to not watching her food intake and following diabetic diet. Discussed with pt about chronic disease management and importance for healthy lifestyle.
[2023-11-06] MEDS: CEFTRIAXONE 1,000 MG in 0.9 % SODIUM CHLORIDE 50 ML 100 MG IV (12:06)
--- NOTE | 2023-11-06 12:11 | CM.NOTE ---
Called Television Announcer about seeing pt prior to discharge.
--- NOTE | 2023-11-06 13:24 | CM.NOTE ---
Discussed with pt about discharge planning. Pt does have home insulin pump that was not keeping a charge and the stickers to adhere insertion site would not stay on. Pt reached out to her physician (Feli Mcgregor) about issues she was having with the pump, new supplies have been ordered and will be delivered to her house tomorrow. Pt also has ordered a new broiler supervisor for insulin pump. [place] scheduling pt a f/u appt with sensory scientist (Feli Mcgregor). Discussed with pt about seeing a clinical document improvement educator for further knowledge with her diabetes, pt A1C- 11.3. Discussed with pt assisted effects of non-compliance and importance of f/u appointments and chronic disease management. Pt is open to seeing a clinical document improvement educator. Will fax referral to [facility] for further education resources.
--- NOTE | 2023-11-06 13:39 | SWNOTE1 ---
SW spoke to case management and a referral needs to be sent to [facility] for diabetic self management/education and pt is in agreement. SW faxed over order form, insurance card, demographic sheet, AIC, H&P and progress note, and home medications. Original order form placed on chart.
--- NOTE | 2023-11-06 15:55 | P.DS_ITS ---
DS: Providers Provider Date of admission: 11/04/23 12:24 Primary care physician: [facility] Admitting clinician: Shaikh Crystal Attending physician on admission: Shaikh Crystal Attending physician on discharge: Shaikh Crystal Discharging clinician: Shaikh Crystal Anticipated date of discharge: 11/06/23 DS: Diagnosis Discharge Diagnosis (1) DKA (diabetic ketoacidosis): Qualifiers: Diabetes mellitus complication detail: without coma Diabetes mellitus type: type 1 Qualified Code(s): E10.10 - Type 1 diabetes mellitus with ketoacidosis without coma (2) Leukocytosis: Qualifiers: Leukocytosis type: leukemoid reaction Qualified Code(s): D72.823 - Leukemoid reaction (3) DANNY (acute kidney injury): (4) Hypokalemia: (5) Hypophosphatemia: DS: Summary Hospital Course Hospital Course: 23-year-old female with past medical history of type 1 diabetes who is supposed to be on insulin pump but could not use her insulin pump for 1 week because it w as malfunctioning presented to ER with nausea, poor appetite and generalized abdominal pain. She had been using short acting insulin instead of the insulin pump. Workup in ER revealed severe diabetic ketoacidosis for which she was admitted to ICU. She was treated with aggressive IV hydration, IV insulin with close hemodynamic monitoring, serial basic metabolic panel and was transition to subcutaneous insulin after her gap closed. Patient was still feeling nauseous and had poor appetite and she was kept on liquid diet which was advanced today. She is still feeling a little bit nauseous and reports poor appetite but denies vomiting and has been able to keep food down. Her blood glucose was slightly above goal but otherwise her gap remains closed. She is medically stable for discharge on Basaglar 40 units nightly along with short acting insulin with meals based on her carbohydrate count. Importance of compliance with medication and following up with PCP and endocrinology was extensively discussed with the patient. She has short acting insulin at home. She will follow-up with PCP in 1 to 2 weeks and and endocrinology in 1 to 2 weeks. Of note, prior to this admission, she was diagnosed with UTI for which she was on oral antibiotics. Repeat UA on this admission was unremarkable. I will discharge her on oral antibiotics to her that she could finish the course of her treatment for UTI. Status at Discharge Functional status at discharge: independent ambulation Overall status at discharge: patient is back to baseline Time Spent with Patient Time attestation: Total time spent providing and/or coordinating discharge services: Time spent: greater than 30 minutes Exam Constitutional Vital Signs, click to edit/add: Last Vital Signs Temp 98.4 F 11/06/23 14:12 Pulse 65 11/06/23 14:12 Resp 18 11/06/23 14:12 BP 119/80 11/06/23 14:12 Pulse Ox 96 11/06/23 14:12 O2 Del Method Room Air 11/06/23 14:12 Documenting provider has reviewed patient's vital signs: yes Common normals: no apparent distress and oriented x3 General appearance: cooperative Respiratory Common normals: normal respiratory effort and clear to auscultation bilaterally Effort & inspection: able to speak in complete sentences Auscultation: clear to auscultation bilaterally Cardio Common normals: regular rate, S1 normal heart sound and S2 normal heart sound Rate: regular rate Heart sounds: S1 normal and S2 normal GI Common normals: Normal to inspection, nondistended, normoactive bowel sounds present, soft to palpation, non-tender and no hepatosplenomegaly Palpation: soft and no hepatosplenomegaly Extremity Common normals: no clubbing, cyanosis or edema Neuro Common normals: oriented x3, moves all extremities and no focal motor deficits Sensorium/orientation: somnolent Psych Common normals: mental status grossly normal, thought process normal, denies hallucinations, denies homicidal ideation and denies suicidal ideation DS: Data Data Completed and Pending Labs on day of discharge: Labs from last 24 hours 11/06/23 11/05/23 06:45 17:04 WBC 8.8 RBC 4.55 Hgb 12.1 Hct 34.5 L MCV 75.8 L MCH 26.6 L MCHC 35.1 RDW 13.6 Plt Count 213 MPV 10.5 Neut % (Auto) 68.8 Lymph % (Auto) 25.6 [place] % (Auto) 4.2 Eos % (Auto) 0.2 L Baso % (Auto) 0.6 Neut # (Auto) 6.1 Lymph # (Auto) 2.3 [place] # (Auto) 0.4 Eos # (Auto) 0.0 Baso # (Auto) 0.1 Abs Immat Gran (auto) 0.05 H Imm/Tot Granulo (auto) 0.6 H Sodium 135 L Potassium 3.2 L Chloride 103 Carbon Dioxide 24.8 Anion Gap 10.4 BUN 5.0 L Creatinine 0.71 Est GFR ( Amer) >60 Est GFR (Non-Af Amer) >60 BUN/Creatinine Ratio 7.0 Glucose 296 H Calcium 7.5 L Total Bilirubin 0.4 AST 50 H ALT 26 Alkaline Phosphatase 110 Total Protein 5.5 L Albumin 2.4 L Globulin 3.1 Albumin/Globulin Ratio 0.8 POC Glucose 241 H Preliminary micro results at discharge 11/04/23 09:21 Blood Culture Result 2 - Preliminary Blood NO GROWTH AT 36-48 HOURS. FINAL TO FOLLOW. 11/04/23 09:12 Blood Culture Result 1 - Preliminary Blood NO GROWTH AT 36-48 HOURS. FINAL TO FOLLOW. Discharge Plan Discharge Disposition: Home, Self-Care Condition: Fair Discharge Medications: New insulin glargine [Basaglar KwikPen U-100 Insulin] 100 unit/mL (3 mL) insulin pen 40 unit subcut QAM Qty: 30 0RF ondansetron 4 mg tablet,disintegrating 4 mg PO Q8H PRN (Reason: nausea and vomiting) 5 Days Qty: 10 0RF cefdinir 300 mg capsule 300 mg PO BID 5 Days Qty: 10 0RF Continued (DME) Dexcom G7 Sensor Device MISCELLANEOUS insulin lispro 100 unit/mL solution 1 - 66 sliding scale dose continuous subcutaneous infusion Q24H Rx Instructions: INJECT UP TO 66 UNITS VIA INSULIN PUMP PER DAY hydrocodone-acetaminophen 5-325 mg tablet 1 tab PO Q6H PRN (Reason: pain) 3 Days Qty: 12 0RF Rx Instructions: M54.5 Discontinued insulin glargine [Lantus U-100 Insulin] 100 unit/mL solution 22 unit subcut QAM insulin glargine [Lantus U-100 Insulin] 100 unit/mL solution 20 unit subcut QPM cephalexin 500 mg capsule 500 mg PO Q8H 10 Days Qty: 30 0RF Patient Comments: 11/01/23-11/10/23 FOR UTI ondansetron 4 mg tablet,disintegrating 4 mg PO Q6H PRN (Reason: nausea and vomiting) Qty: 12 0RF fluconazole 150 mg tablet 150 mg PO ONCE 1 Days Qty: 1 0RF Patient Comments: DUE 11/11/23 Rx Instructions: to be taken at the end of the course of antibiotics Activity: increase activity as tolerated Diet: advance to your usual diet Print Language: Swedish Forms: Portal Instructions Follow Up Appointments: Nov.11 @ 8:45am with Feli Mcgregor ([employer]) [address] [place] [address] [address], [place] [phone] @ 9:15am with [facility] [phone]
[2023-11-06] MEDS: INSULIN DETEMIR 300 UNIT/3 ML INSULN.PEN 40 UNIT SUBQ (17:13)
--- NOTE | 2023-11-06 18:32 | NUTR.NU ---
Pt appears uninterested in therapeutic diet to aid control of DM1; claims she eats a regular diet and does not pay attention to BG levels. Will attempt diet education if she is still here tomorrow.
--- NOTE | 2023-11-08 14:19 | CM.DCFOLLOWU ---
1st attempt 11/08/23
--- NOTE | 2023-11-12 14:52 | CM.DCFOLLOWU ---
2nd attempt 11/12/23, no answer
--- NOTE | 2023-11-13 14:12 | CM.DCFOLLOWU ---
Person spoke with:patient How are you feeling? well How is your pain? better Did you understand your discharge instructions?yes Do you have any questions about your discharge instructions? no Were you given any prescriptions at discharge?yes Were you able to get your prescriptions filled?yes Do you understand how to take your medications as ordered?yes Do you have any questions about your follow up appointment and do you plan to keep your follow up appointment?no questions, follow was scheduled yesterday but she had to re-schedule Is there anything else that you would like to discuss?no Questions/Comments/Concerns/Other:no
== END 2023-11-06 17:46 | disposition home or self-care (01) | DRG 638 ==
LOC: ER 10:20 → ICU 12:27 → MS 11-05 17:45
PROVIDERS: Admitting Provider Internal Medicine; Emergency Provider Emergency Medicine; Visit Provider Internal Medicine
DX: E10.10 Type 1 diabetes mellitus with ketoacidosis without coma (principal); N17.9 Acute kidney failure, unspecified; T85.614A Breakdown (mechanical) of insulin pump, initial encounter; N39.0 Urinary tract infection, site not specified; T38.3X6A Underdosing of insulin and oral hypoglycemic [antidiabetic] drugs, initial encounter; D72.823 Leukemoid reaction; E83.39 Other disorders of phosphorus metabolism; E86.0 Dehydration; E87.6 Hypokalemia; F17.200 Nicotine dependence, unspecified, uncomplicated; Y82.8 Other medical devices associated with adverse incidents; Z79.4 Long term (current) use of insulin; Z96.41 Presence of insulin pump (external) (internal); Z79.82 Long term (current) use of aspirin
CPT/HCPCS: 36415; 71045; 80048; 80053; 81001; 82009; 82800; 82948; 83036; 83735; 84100; 84703; 85025; 87040; 87086; 93005; 94761; 99285; J0696; J1644; J1817; J2250; J2405; J3475; J3480

== ENCOUNTER 2024-09-02 19:31 | Emergency (ER) | payer BC, OTHER, SELFPAY ==
--- OUTSIDE RECORDS SUMMARY | 2023-11-26 05:15 | XMS_ITS ---
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 Medications Medication SIG (Take, Route, Fr equency, Duration) Notes Start Date End Date Status Amoxicillin 02/02/2022 Not-Bijan ing HumaLOG Active Ibuprofen Active Social History Sex Assigned At : Social History Observation Description Sex Assigned At Female Encounters Encounter Location Date Provider Diagnosis Main [address] [place], [place] [id number] 11/26/2023 Bobbi Churchill Plan Of Treatment No Information Progress Notes * Savi MCGREGORDOB: [birth year] (24 yo F)Acc No.[id number]:11/26/2023 Medical Note Patient: Savi TOLLIVER Provider: Jo-Ann Churchill :2000 A ge:23 Y S ex:Female Date:11/26/2023 Address:[address] [place], [id number] Subjective: * Chief Complaints: * 1 . 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 * Medical History: * Medications: T aking Ibuprofen , Taking HumaLOG , Not-Taking/PRN Amoxicillin Objective: * Vitals: Assessment: Plan: * Treatment: * Billing Information: * Visit Code: * Procedure Codes: * Electronic signature of JESUS MANUEL Ortiz sa on 09/02/2024 at 07:49 PM EDT Sign off status: Pending * Provider: Jo-Ann Chruchill Date: 1 Generated for Mecca Burrell/Jazmin on: 0 09/02/2024 07:49 PM EDT
--- OUTSIDE RECORDS SUMMARY | 2024-08-27 18:13 | XMS_ITS | Encounter Summary ---
Author Organization [facility] [employer] [facility] tem Address [id number] 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 Name Role Phone Services, [facility] Primary Care Provider Reason for Visit * Reason Comments Fever Encounter Details Date Type Department Care Team (Late st Contact Info) Description 08/27/2024 6:13 PM EDT - 08/27/2024 8:30 PM EDT Emergency [facility] - Emergency [address] [place] [id number] Kayden Varela MD [address] [place] [address] Viral syndrome (Primary Dx); Hyperglycemia Discharge Disposition: Home Social History Tobacco Use Types Packs/Day Years Used Date Smoking Tobacco: Every Day Vaping/E-cigarettes Smokeless Tobacco: Never Alcohol Use Standard Drinks/Week Comments Not Currently 0 (1 standard drink = 0.6 oz pur e alcohol) occassional Social Connection and Isolat ion Panel [NHANES] Answer Date Recorded In a typical week, how many times do you talk on the phone with family, friends, or neighbors? More than three times a week 10/11/2019 How often do you get togethe r with friends or relatives? More than three times a week 10/11/2019 How often do you attend chur ch or episcopal services? Never 10/11/2019 Do you belong to any clubs o r organizations such as advent groups, unions, fraternal or athletic groups, or school groups? No 10/11/2019 How often do you attend meet ings of the clubs or organizations you belong to? Never 10/11/2019 Are you , , di vorced, , never , or living with a partner? Never 10/11/2019 Overall Financial Resource Strain (CARDIA) Answe r Date Recorded How hard is it for you to pa y for the very basics like food, housing, medical care, and heating? Not hard at all 02/26/2023 PHQ-2 Answer Date Recorded Total Score 0 01/25/2024 [place] [facility] [employer] [employer] - Occupational Stress Questionnaire Answer Date Recorded Do you feel stress - tense, restless, nervous, or anxious, or unable to sleep at night because your mind is troubled all the time - these days? Not at all 10/11/2019 Exercise Vital Sign Answer Date Recorde d On average, how many days pe r week do you engage in moderate to strenuous exercise (like a brisk walk)? 2 days 10/11/2019 On average, how many minutes do you engage in exercise at this level? 50 min 10/11/2019 PRAPARE - Transportation Answer Date Re corded In the past 12 months, has l ack of transportation kept you from medical appointments or from getting medications? No 05/2019 In the past 12 months, has l ack of transportation kept you from meetings, work, or from getting things needed for daily living? No 10/10/2019 [place] Depression Scale Answer Date Recorded [place] Depression Scale Total 0 02/26/2023 The thought of harming myself has occurred to me . Never 02/26/2023 Housing Instability Answer Date Recorde d Are you worried or concerned that in the next two months you may not have stable housing that you own, rent or stay in as a part of a household? No 02/26/2023 Childcare Answer Date Recorded Do problems getting child ca re make it difficult for you to work or study? Yes 02/26/2023 Employment Answer Date Recorded Do you need help finding a [facility] and/or a training program? No 04/16/2020 Hunger Screening Answer Date Recorded Within the past 12 months we worried whether our food would run out before we got money to buy more. Never True 08/27/2024 Within the past 12 months th e food we bought just didn't last and we didn't have money to get more. Never True 08/27/2024 Purpose - Life Answer Date Recorded Purpose and direction in life Unknown Comments No Sex and Gender Information Value Date Recorded Sex Assigned at Female 05/13/2018 8:11 AM EDT Legal Sex Female 12:01 PM EDT Gender Identity Female 05/13/2018 8:11 AM EDT Sexual Orientation Straight 05/13/2018 8: 11 AM EDT documented as of this encounter Last Filed Vital Signs Vital Sign Reading Time Taken Comments Blood Pressure 122/65 08/27/2024 6:17 PM EDT Pulse 97 08/27/2024 6:17 PM EDT Temperature 36.9 C (98.4 F) 08/27/2024 6:17 PM EDT Respiratory Rate 16 08/27/2024 6:17 PM EDT Oxygen Saturation 100% 08/27/2024 6:17 PM EDT Inhaled Oxygen Concentration - - Weight 70.8 kg (156 lb) 08/27/2024 6:17 PM EDT Height 162.6 cm (5' 4 ) 08/27/2024 6:17 PM EDT Body Mass Index 26.78 08/27/2024 6:17 PM EDT documented in this encounter Discharge Instructions * Attachments The following attachments cannot be sent through Care Everywhere. * Muscle, joint, and bone pain ??? Discharge instructions (Welsh) documented in this encounter Medications at Time of Discharge acetaminophen (TYLENOL EXTRA STRENGTH) 500 mg tablet Take 2 tablets (1,000 mg total) by mouth every 8 (eight) hours as needed for pain. 30 tablet 4 acetone, urine, test strip 1 strip by miscellaneous route every 4 (four) hours as needed (illness or hyperglycemia). 100 strip 3 3 alcohol swabs pads, medicatedIndicatio ns:Type 1 diabetes mellitus during in third trimester Use as directed prior to insulin injections 150 each 11 4 blood-glucose meter (ONETOUCH VERIO REFLECT METER) miscIndications:Ty pe 1 diabetes mellitus with hyperglycemia (CMS-HCC) 1 Device by miscellaneous route in the morning. 1 each 5 blood-glucose sensor (DEXCOM G7 SENSOR) deviceIndications: Type 1 diabetes mellitus with hyperglycemia (CMS-HCC) Change sensor every 10 days 3 each 11 5 drospirenone, contraceptive, 4 mg (28) tablet Take 4 mg by mouth in the morning. 84 tablet 3 4 glucagon HCL (GLUCAGON, HCL, EMERGENCY KIT) 1 mg recon soln Inject 1 mg as directed as needed (severe hypoglycemia or seizure). 2 each 3 ibuprofen (MOTRIN) 800 mg tablet Take 1 tablet (800 mg total) by mouth every 8 (eight) hours as needed for pain. 30 tablet 4 insulin glargine (LANTUS SOLOSTAR U-100 INSULIN) 100 unit/mL (3 mL) insulin penIndications:Typ e 1 diabetes mellitus with hyperglycemia (CMS-HCC) Use as directed up to 50 units daily when NOT wearing insulin pump 15 mL 5 insulin lispro (HumaLOG U-100 Insulin) 100 unit/mL injectionIndicatio ns:Type 1 diabetes mellitus with hyperglycemia (CMS-HCC) Use as directed in insulin pump up to 66 units per day. 20 mL 12 5 insulin lispro (HumaLOG) 100 unit/mL insulin penIndications:Typ e 1 diabetes mellitus with hyperglycemia (CMS-HCC) Use as directed up to 100 units daily for carb coverage and blood glucose correction when NOT wearing insulin pump 30 mL 5 lancets (ONETOUCH DELICA PLUS LANCET) 33 gauge miscIndications:Ty pe 1 diabetes mellitus with hyperglycemia (CMS-HCC) 1 Lancet by miscellaneous route 5 (five) times a day. 150 each 5 pen needle, diabetic (BD XANDER 2ND GEN PEN NEEDLE) 32 gauge x 5/32 needleIndications: Type 1 diabetes mellitus with hyperglycemia (CMS-HCC) 5 injections daily 150 each 5 documented as of this encounter ED Notes * Kayden Varela MD - 08/27/2024 6:21 PM EDT Images from the original note were not included. [facility] - EMERGENCY Pt Name: Savi Mcgregor Birthdate: 2000 Chief Complaint: Chief Complaint Patient presents with ??? Fever History of Present Illness: Initial evaluation by Dr. Chacorta Varela at 6:21 PM. Savi Mcgregor is a 24 y.o. female who presents to the ED with chief complaint of fever. Pt reports on Sunday she developed a cramp in her RUQ region, then got tension headaches around the back of her head, and fevers with her highest being 100.6. Pt reports right side pain, and pain topalpation on her stomach. There are no other concerns at this time. History provided by: Patient conference interpreter used: No Past Medical History: Past Medical History: Diagnosis Date ??? Anemia Hx of ??? Asthma ??? Chronic ITP (idiopathic thrombocytopenic purpura) ([facility]) ??? Diabetes type 1, controlled [place] ??? Diabetic ketoacidosis without coma associated with type 1 diabetes mellitus ([facility]) 02/07/2021 ??? DKA (diabetic ketoacidoses) 02/10/2020 ??? DKA, type 1 ([facility]) 10/11/2019 ??? H/O idiopathic thrombocytopenic purpura Hx of in childhood ??? Obesity ??? 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 07/05/2022 ??? Type 1 diabetes mellitus affecting in third trimester, antepartum 02/02/2023 ??? UTI (urinary tract infection) Hx of Past Surgical History: Past Surgical History: Procedure Laterality Date ??? N/A 10/01/2018 Performed by Radha Reno MD at [facility] OR ??? REPEAT N/A 02/16/2023 Performed by Yessy Pedersen DO at [facility] OR ??? REPEAT N/A 04/17/2020 Performed by Radha Reno MD at [facility] OR ??? SECTION 04/2020 ??? SECTION X3 ??? NO PAST SURGERIES Family History: Family History Problem Relation Age of Onset ??? Diabetes Father ??? Kidney disease Father KIDNEY TRANSPLANT ??? Hypertension Mother ??? Diabetes Paternal Grandmother ??? Heart defect Neg Hx ??? Seizures Neg Hx ??? Asthma Neg Hx ??? Arrhythmia Neg Hx ??? Heart attack Neg Hx ??? Sudden Neg Hx ??? Stroke Neg Hx ??? Clotting disorder Neg Hx ??? High Cholesterol Neg Hx ??? Thyroid Issues Neg Hx Social History: Social History Socioeconomic History ??? Marital status: Single Tobacco Use ??? Smoking status: Every Day Types: Vaping/E-cigarettes ??? Smokeless tobacco: Never Vaping Use ??? Vaping status: Every Day ??? Substances: Nicotine ??? Devices: Disposable Substance and Sexual Activity ??? Alcohol use: Not Currently Comment: occassional ??? Drug use: Not Currently Types: Marijuana Comment: daily ??? Sexual activity: Not Currently Partners: Male control/protection: None Social History Narrative Lives with family. Social Drivers of Health Financial Resource Strain: Low Risk (02/26/2023) Overall Financial Resource Strain (CARDIA) ??? Difficulty of Paying Living Expenses: Not hard at all Food Insecurity: No Food Insecurity (08/27/2024) Hunger Screening ??? Food Insecurity - Worry: Never True ??? Food Insecurity - Inability: Never True Transportation Needs: No Transportation Needs (10/10/2019) PRAPARE - Transportation ??? Lack of Transportation (Medical): No ??? Lack of Transportation (Non-Medical): No Physical Activity: Insufficiently Active (10/11/2019) Exercise Vital Sign ??? Days of Exercise per Week: 2 days ??? Minutes of Exercise per Session: 50 min Stress: No Stress Concern Present (10/11/2019) [place] [employer] - Occupational Stress Questionnaire ??? Feeling of Stress : Not at all Social Connections: Socially Isolated (10/11/2019) Social Connection and Isolation Panel [NHANES] ??? Frequency of Communication with Friends and Family: More than three times a week ??? Frequency of Social Gatherings with Friends and Family: More than three times a week ??? Attends Adventist Services: Never ??? Active Member of Clubs or Organizations: No ??? Attends Club or Organization Meetings: Never ??? Marital Status: Never Interpersonal Safety: Not At Risk (02/26/2023) Humiliation, Afraid, Rape, and Kick questionnaire ??? Fear of Current or Ex-Partner: No ??? Emotionally Abused: No ??? Physically Abused: No ??? Sexually Abused: No Housing Instability: Low Risk (02/26/2023) Housing Instability ??? Housing Instability: No Review of Systems: Review of Systems Physical Exam: ED Triage Vitals [08/27/241816] Temp Heart Rate Resp BP SpO2 36.9 ??C (98.4 ??F) 97 16 122/65 100 % Temp Source Heart Rate Source Patient Position BP Location FiO2 (%) Oral Pulse Ox Sitting Left arm -- Vitals: 08/27/241816 BP: 122/65 Temp: 36.9 ??C (98.4 ??F) TempSrc: Oral Pulse: 97 Resp: 16 SpO2: 100% MAP (mmHg): 83 Height: 162.6 cm (5' 4 ) Weight: 70.8 kg (156 lb) Physical Exam Vitals reviewed. HENT: Head: Normocephalic and atraumatic. Eyes: Conjunctiva/sclera: Conjunctivae normal. Cardiovascular: Rate and Rhythm: Normal rate. Pulmonary: Effort: Pulmonary effort is normal. Breath sounds: Normal breath sounds. Abdominal: General: There is no distension. Palpations: Abdomen is soft. Musculoskeletal: General: Normal range of motion. Cervical back: Normal range of motion and neck supple. Skin: General: Skin is warm and dry. Neurological: General: No focal deficit present. Mental Status: She is alert and oriented to person, place, and time. GCS: GCS eye subscore is 4. GCS verbal subscore is 5. GCS motor subscore is 6. Procedure: Procedures Re-evaluation: Re-Evaluation Medical Decision Making Amount and/or Complexity of Data Reviewed Labs: ordered. Details: Labs notable for: beside glucose >500, urine glucose MELISSA >=1000, POC urine blood/HGB trace, glucose 643. Risk OTC drugs. Prescription drug management. ED Course: Clinical Impressions as of 08/27/242013 Viral syndrome Hyperglycemia . ED Disposition None . Please note that portions of this note were completed with a voice recognition program. Efforts were made to edit the dictations but occasionally words are mis-transcribed. Jessica Panuto 08/27/24 1826 Jessica Panuto 08/27/24 1835 Jessica Panuto 08/27/24 1845 Jessica Panuto 08/27/24 1855 Jessica Panuto 08/27/24 1950 Kayden Varela MD 08/31/24 1637 * Rose Bianchi - 08/27/2024 6:16 PM EDT Pt reports having fever of 100.6f this morning and motrin and Theraflu for body aches around 3075-1539. Pt reports having body aches that start in lower part of abdomin but go towards the rib cage Cosigned by Brielle Mercedes RN at 08/27/2024 6:20 PM EDT Associated attestation - Brielle Mercedes RN - 08/27/2024 6:20 PM EDT - Brielle Mercedes RN 08/27/24 6:20 PM documented in this encounter Plan of Treatment Not on file documented as of this encounter Goals Goal Patient Goal Type Associated Problems Recent Progress Patient-Stated? Author Home General Yes Aundrea Jarrell LSW Note: Evaluation of progress towards goal: Safe dc transition from hospital to home. documented as of this encounter Procedures Procedure Name Priority Date/Time Associated Diagnosis Comments BEDSIDE GLUCOSE Routine 08/27/2024 8:04 PM EDT POCT , URINE (NUCG) Routine 08/27/2024 6:56 PM EDT POCT NURSING URINE MACROSCOPIC UA Routine 08/27/2024 6:54 PM EDT EXTRA TUBES SST TOP Routine 08/27/2024 6 :52 PM EDT EXTRA TUBES Routine 08/27/2024 6:52 PM EDT CBC WITH AUTO DIFFERENTIAL STAT 08/27/2024 6:52 PM EDT ACETONE,(BETAHYDROXYBU TYRATE, KETONE) QUANTITATIVE SERUM STAT 08/27/2024 6:52 PM EDT COMPREHENSIVE METABOLIC PANEL STAT 08/27/2024 6:52 PM EDT ER EXTRA URINE MARBLE STAT 08/27/2024 6:43 PM EDT ER EXTRA URINE CULTURE STAT 6:43 PM EDT ER EXTRA URINE STAT 08/27/2024 6:43 PM EDT BEDSIDE GLUCOSE Routine 08/27/2024 6:42 PM EDT documented in this encounter Results * (ABNORMAL) Bedside Glucose *Place/Obtain serum glucose if >500 per glucometer. (08/27/2024 8:04 PM EDT) Bedside Glucose (POC) 452(HH) 65 - 99 mg/dL 08/27/2024 8:27 PM EDT [facility] arterial/capilla ry 08/27/2024 8:04 PM EDT 08/27/2024 8:27 PM EDT us Kayden Varela MD POINT OF CARE TEST ORDERABLES F inal Result [address] [place] [address], [place] * POCT , urine (08/27/2024 6:56 PM EDT) POC Urine Negative Negative, Indeterminate 08/27/2024 6:52 PM EDT [facility] Urine 08/27/2024 6:56 PM EDT 08/27/2024 6:52 PM EDT us Kayden Varela MD POINT OF CARE TEST ORDERABLES F inal Result [address] [place] [address], [place] * (ABNORMAL) POCT Nursing Urine Macroscopic UA (08/27/2024 6:54 PM EDT) POC Urine Specific [place] 1.010 1.010, 1.015, 1.020, 1.025 08/27/2024 6:46 PM EDT [facility] POC Urine Leukocyte Esterase Negative Negative 08/27/2024 6:46 PM EDT [facility] POC Urine Nitrite Negative Negative 08/27/2024 6:46 PM EDT [facility] POC Urine pH 5.5 5.0, 6.0, 6.5, 7.0, 7.5, 8.0, 8.5, 5.5 08/27/2024 6:46 PM EDT [facility] POC Urine Protein Negative Negative 08/27/2024 6:46 PM EDT [facility] POC Urine Glucose >=1000 mg/dL(A) Negative 08/27/2024 6:46 PM EDT [facility] POC Urine Ketones Negative Negative 08/27/2024 6:46 PM EDT [facility] POC Urine Urobilinogen 0.2 E.U./dL 08/27/2024 6:46 PM EDT [facility] POC Urine Bilirubin Negative Negative 08/27/2024 6:46 PM EDT [facility] POC Urine Blood/HGB Trace(A) Negative 08/27/2024 6:46 PM EDT [facility] Urine 08/27/2024 6:54 PM EDT 08/27/2024 6:46 PM EDT us Kayden Varela MD POINT OF CARE TEST ORDERABLES F inal Result Performing Organization Address City/[facility]/ZIP Co de Phone Number [address] [place] [address], [place] * SST TOP (08/27/2024 6:52 PM EDT) Extra Tube Auto Resulted 08/27/2024 8:03 PM EDT [facility] Blood Venous blood / Unknown 08/27/2024 6:52 PM EDT 08/27/2024 7:02 PM EDT us Kayden Varela MD LAB BLOOD ORDERABLES Final Resu lt Performing Organization Address [facility] Co de Phone Number [address] [place] [address], [place] * Acetone, (BetaHydroxybutyrate, Ketone) quantitative, serum (08/27/2024 6:52 PM EDT) BETAHYDROXYBUTYRATE 0.05 0.02 - 0.27 mmol/L 08/27/2024 7:37 PM EDT [facility] Blood Venous blood / Unknown Venipuncture / Unknown 08/27/2024 6:52 PM EDT 08/27/2024 7:01 PM EDT us Kayden Vareal MD LAB BLOOD ORDERABLES Final Resu lt Performing Organization Address [facility] Co de Phone Number [address] [place] [address], [place] * (ABNORMAL) Comprehensive metabolic panel (08/27/2024 6:52 PM EDT) SODIUM 132(L) 134 - 146 mmol/L 08/27/2024 7:48 PM EDT [facility] POTASSIUM 3.8 3.5 - 5.0 mmol/L 08/27/2024 7:48 PM EDT [facility] CHLORIDE 99 98 - 109 mmol/L 08/27/2024 7:48 PM EDT [facility] CARBON DIOXIDE 22 22 - 32 mmol/L 08/27/2024 7:48 PM EDT [facility] ANION GAP 11 5 - 15 mmol/L 08/27/2024 7:48 PM EDT [facility] BLOOD UREA NITROGEN 11 5 - 23 mg/dL 08/27/2024 7:48 PM EDT [facility] CREATININE 0.90 0.40 - 1.00 mg/dL 08/27/2024 7:48 PM EDT [facility] Comment:METHOD TRACEABLE TO IDMS STANDARD GLUCOSE 643(HH) 65 - 99 mg/dL 08/27/2024 7:48 PM EDT [facility] CALCIUM 8.6 8.5 - 10.5 mg/dL 08/27/2024 7:48 PM EDT [facility] TOTAL PROTEIN 7.1 6.0 - 8.0 g/dL 08/27/2024 7:48 PM EDT [facility] ALBUMIN 3.3 3.2 - 5.3 g/dL 08/27/2024 7:48 PM EDT [facility] ALKALINE PHOSPHATASE 101 39 - 130 U/L 08/27/2024 7:48 PM EDT [facility] AST 21 <=41 U/L 08/27/2024 7:48 PM EDT [facility] ALT 10 <=31 U/L 08/27/2024 7:48 PM EDT [facility] BILIRUBIN,TOTAL 0.5 0.3 - 1.2 mg/dL 08/27/2024 7:48 PM EDT [facility] EGFR Non-Race Dependent >90 >=60 ml/min/1.7 3sq.m 08/27/2024 7:48 PM EDT [facility] Comment: eGFR not reported due to non-numeric value for Creatinine. Reported eGFR is based on the CKD-EPI 2020 equation that does not use a race coefficient. Blood Venous blood / Unknown Venipuncture / Unknown 08/27/2024 6:52 PM EDT 08/27/2024 7:01 PM EDT us Kayden Varela MD LAB BLOOD ORDERABLES Final Resu lt [facility] [address] [place] [address], * (ABNORMAL) CBC auto differential (08/27/2024 6:52 PM EDT) WBC 8.9 4 - 11 x10E9/L 08/27/2024 7:16 PM EDT [facility] RBC Count 4.42 3.8 - 5.2 X10E12/L 08/27/2024 7:16 PM EDT [facility] Hemoglobin 12.4 11.7 - 15.5 g/dL 08/27/2024 7:16 PM EDT [facility] Hematocrit 35.8 35 - 47 % 08/27/2024 7:16 PM EDT [facility] MCV 81 80 - 100 fL 08/27/2024 7:16 PM EDT [facility] MCH 28.0 27 - 34 pg 08/27/2024 7:16 PM EDT [facility] MCHC 34.6 32 - 36 g/dL 08/27/2024 7:16 PM EDT [facility] RDW 14.2 11.5 - 15 % 08/27/2024 7:16 PM EDT [facility] Platelet Count 237 150 - 450 X10E9/L 08/27/2024 7:16 PM EDT [facility] MPV 9.8 7 - 12 fL 08/27/2024 7:16 PM EDT [facility] Neutrophils % 81.1 % 08/27/2024 7:16 PM EDT [facility] Lymphocytes % 13.9 % 08/27/2024 7:16 PM EDT [facility] Monocytes % 4.3 % 08/27/2024 7:16 PM EDT [facility] Eosinophils % 0.4 % 08/27/2024 7:16 PM EDT [facility] Basophils % 0.3 % 08/27/2024 7:16 PM EDT [facility] Neutrophils Absolute (A) 7.2(H) 1.5 - 6.6 10*3/uL 08/27/2024 7:16 PM EDT [facility] Lymphocytes Absolute 1.2 1.0 - 3.5 10*3/uL 08/27/2024 7:16 PM EDT [facility] Monocytes Absolute 0.4 0.0 - 0.9 10*3/uL 08/27/2024 7:16 PM EDT [facility] Eosinophils Absolute 0.0 0.0 - 0.4 10*3/uL 08/27/2024 7:16 PM EDT [facility] Basophils Absolute 0.0 0.0 - 0.2 10*3/uL 08/27/2024 7:16 PM EDT [facility] Differential Type AUTOMATED DIFFERENTIAL 08/27/2024 7:16 PM EDT [facility] Blood Venous blood / Unknown Venipuncture / Unknown 08/27/2024 6:52 PM EDT 08/27/2024 7:01 PM EDT us Kayden Varela MD LAB BLOOD ORDERABLES Final Resu lt [facility] [address] [place] [address], [place] * Extra Urine [place] (08/27/2024 6:43 PM EDT) Extra Tube Auto Resulted 08/27/2024 8:03 PM EDT [facility] Urine Urine specimen collection, clean catch / Unknown 08/27/2024 6:43 PM EDT 08/27/2024 7:03 PM EDT us Kayden Varela MD URINE ORDERABLES Final Result Performing Organization Address City/[facility] Co de Phone Number [address] [place] [address], [place] * Extra Urine Culture (08/27/2024 6:43 PM EDT) Extra Tube Auto Resulted 08/27/2024 8:03 PM EDT [facility] Urine Urine specimen collection, clean catch / Unknown 08/27/2024 6:43 PM EDT 08/27/2024 7:03 PM EDT us Kayden Varela MD URINE ORDERABLES Final Result Performing Organization Address [facility] Co de Phone Number [address] [place] [address], [place] * Extra Urine (08/27/2024 6:43 PM EDT) Extra Tube Auto Resulted 08/27/2024 8:03 PM EDT [facility] Urine Urine specimen collection, clean catch / Unknown 08/27/2024 6:43 PM EDT 08/27/2024 7:03 PM EDT us Kayden Varela MD URINE ORDERABLES Final Result Performing Organization Address City/[facility] Co de Phone Number [address] [place] [address], [place] * (ABNORMAL) Bedside Glucose *Place/Obtain serum glucose if >500 per glucometer. (08/27/2024 6:42 PM EDT) Bedside Glucose (POC) >500(HH) 65 - 99 mg/dL 08/27/2024 6:43 PM EDT [facility] arterial/capilla ry 08/27/2024 6:42 PM EDT 08/27/2024 6:43 PM EDT us Kayden Vareal MD POINT OF CARE TEST ORDERABLES F inal Result [facility] [address] [place] [address], documented in this encounter Visit Diagnoses Diagnosis Viral syndrome- Primary Unspecified viral infection, in conditions classified elsewhere and of unspecified site Hyperglycemia Other abnormal glucose documented in this encounter Administered Medications Inactive Administered Medications - up to 3 most recent administrations Medication Order MAR Action Action Date Dose Rate Site insulin regular (HumuLIN R,NovoLIN R) injection 10 Units 10 Units, subcutaneous, Once, On Sun08/27/24 at 2015, For 1 dose, Look-alike/sound-alike medication - verify indication for use. Prandial/supplemental insulin. Stable for 28 days at room temperature. Given 08/27/2024 8:19 PM EDT 10 Units Other insulin regular (HumuLIN R,NovoLIN R) injection 15 Units 15 Units, subcutaneous, Once, On Sun08/27/24 at 1850, For 1 dose, Look-alike/sound-alike medication - verify indication for use. Prandial/supplemental insulin. Stable for 28 days at room temperature. Given 08/27/2024 7:20 PM EDT 15 Units Right Arm sodium chloride 0.9 % bolus 1,000 mL, intravenous, at 984 mL/hr, Administer over 61 Minutes, Once, On Sun08/27/24 at 1850, For 1 dose New Bag 08/27/2024 7:15 PM EDT 1,000 mL 984 mL/hr sodium chloride 0.9 % flush 3 mL 3 mL, intravenous, As needed, line care, before and after each intermittent use, Starting on Sun08/27/24 at 1844 documented in this encounter Active and Recently Administered Medications Times are shown in EDT. Scheduled Medication Order 08/25/2024 08/26/2024 08/27/2024 insulin regular (HumuLIN R,NovoLIN R) injection 10 Units (COMPLETED) 10 Units, subcutaneous, Once, On Sun08/27/24 at 2015, For 1 dose, Look-alike/sound-alike medication - verify indication for use. Prandial/supplemental insulin. Stable for 28 days at room temperature. 2019 (Given - Provid er: Betsy Sharpe RN - Comment: abd) insulin regular (HumuLIN R,NovoLIN R) injection 15 Units (COMPLETED) 15 Units, subcutaneous, Once, On Sun08/27/24 at 1850, For 1 dose, Look-alike/sound-alike medication - verify indication for use. Prandial/supplemental insulin. Stable for 28 days at room temperature. 1919 (Given - Provid er: Betsy Sharpe RN) sodium chloride 0.9 % bolus (COMPLETED) 1,000 mL, intravenous, at 984 mL/hr, Administer over 61 Minutes, Once, On Sun08/27/24 at 1850, For 1 dose 1914 (New Bag - Prov ider: Brielle Mercedes RN)2015 (Stop Bag - Provider: Betsy Sharpe RN) PRN Medication Order 08/25/2024 08/26/2024 08/27/2024 sodium chloride 0.9 % flush 3 mL 3 mL, intravenous, As needed, line care, before and after each intermittent use, Starting on Sun08/27/24 at 1844 documented in this encounter Additional Health Concerns Assessment Noted Time PHQ-9 Depression Total Score: 0 01/25/20 24 3:50 PM EST A Body Mass Index follow-up plan has been documented for the patient 12/29/2019 11:53 AM EST documented as of this encounter Care Teams Door Repairer Bus Relationship Specialty Start Date End Date [facility], [facility] [address] [place] [address] PCP - General Family Medicine 03/03/18 documented as of this encounter
[2024-09-02 19:47] VITALS: BP 127/79; PULSE 83; TEMP 36.9; O2SAT 97; BMI 25.4
--- OUTSIDE RECORDS SUMMARY | 2024-09-02 19:48 | XMS_ITS | Encounter Summary ---
Author Organization [facility] tem Address [id number] [place] [address] Care Team Providers Care Visual Design Lead Name Role Phone Services, [facility] Primary Care Provider Encounter Details Date Type Department Care Team (Late st Contact Info) Description 01/06/2020 Orders Only [facility] Services - Women's Services [address] [place] [id number] Nimo Mendieta RN High risk , antepartum (Primary Dx) Social History Tobacco Use Types Packs/Day Years Used Date Smoking Tobacco: Former Cigarettes Q uit: 2020 Vaping/E-cigarettes Smokeless Tobacco: Never Alcohol Use Standard [...] often do you attend chur ch or sabianism services? Never 10/11/2019 Do you belong to any clubs o r organizations such as bahai groups, unions, fraternal or athletic groups, or [...] care, and heating? Not hard at all 10/10/2019 PHQ-2 Answer Date Recorded PHQ-2 Score 0 10/11/2019 [facility] of Occupat ional Health - Occupational Stress [...] things needed for daily living? No 10/10/2019 Childcare Answer Date Recorded Childcare Unknown 07/10/2018 Employment Answer Date Recorded Employment Unknown 07/10/2018 Comments Yes Sex and Gender Information Value Date Recorded Sex Assigned at Female 05/13/2018 8:11 AM EDT Legal Sex Female 12:01 PM EDT Gender Identity Female 05/13/2018 8:11 AM EDT Sexual Orientation Straight 05/13/2018 8: 11 AM EDT COVID-19 Exposure Response Date Recorded In the last month, have you been in contact with someone who was confirmed or suspected to have Coronavirus / COVID-19? No / Unsure 01/05/2020 3:11 PM EST documented as of this encounter Plan of Treatment Scheduled Orders Name Type Priority Associated Diagnoses Orde r Schedule Protein, urine, 24 hour Lab Routine High risk , antepartum 1 Occurrences starting 01/06/2020 until 01/05/2021 Creatinine, urine, 24 hour Lab Routine High risk , antepartum 1 Occurrences starting 01/06/2020 until 01/05/2021 documented as of this encounter Visit Diagnoses Diagnosis High risk , antepartum- Primary documented in this encounter Additional Health Concerns Infection Onset Date Last Indicated Resolved Time COVID-19 Rule-Out 02/09/2020 02/09/2020 02/10/2020 2:07 PM EST COVID-19 Rule-Out 02/07/2021 02/07/2021 02/07/2021 4:48 PM EST Assessment Noted Time PHQ-9 Depression Total Score: 0 10/11/19 20 2:19 PM EDT A Body Mass Index follow-up plan has been documented for the patient 12/29/2019 11:53 AM EST documented as of this encounter Care Teams Visual Design Lead Relationship Specialty Start Date End Date [facility], [facility] [address] [place] PCP - General Family Medicine 03/03/18 documented as of this encounter
--- OUTSIDE RECORDS SUMMARY | 2024-09-02 19:48 | XMS_ITS | Encounter Summary ---
Author Organization [facility] tem Address [id number] [place] [address] Care Team Providers Care Urinalysis Technician Name Role Phone Services, [facility] Primary Care Provider Encounter Details Date Type Department Care Team (Late st Contact Info) Description 12/13/2022 Telephone Maternal- Medicine at [facility] [address] [place] [address] Ruthy Esparza [facility] Social History Tobacco Use Types Packs/Day Years Used Date Smoking Tobacco: Former Cigarettes Vaping/E-cigarettes Smokeless Tobacco: Never Alcohol Use Standard [...] often do you attend chur ch or gnosticist services? Never 10/11/2019 Do you belong to any clubs o r organizations such as oriental orthodox groups, unions, fraternal or athletic groups, or [...] at all 10/10/2019 PHQ-2 Answer Date Recorded Total Score 0 08/30/2022 [facility]at ional [facility] - Occupational Stress Questionnaire Answer Date Recorded [...] things needed for daily living? No 10/10/2019 [place] Depression Scale Answer Date Recorded [place] Depression Scale Total 0 06/02/2020 The thought of harming myself has occurred to me . Never 06/02/2020 Childcare Answer Date Recorded Do problems getting child ca re make it difficult for you to work or study? No 04/25/2020 Employment Answer Date Recorded Do you need help finding a [facility] and/or a training program? No 04/16/2020 Purpose - Life Answer Date Recorded Purpose and direction in life Unknown Comments Yes Sex and Gender Information Value Date Recorded Sex Assigned at Female 05/13/2018 8:11 AM EDT Legal Sex Female 12:01 PM EDT Gender Identity Female 05/13/2018 8:11 AM EDT Sexual Orientation Straight 05/13/2018 8: 11 AM EDT documented as of this encounter Miscellaneous Notes * Telephone Encounter - Ruthy Esparza CMA - 12/13/2022 2:20 PM EST LM for patient to call MFM to schedule a MFM MD appointment in one week. documented in this encounter Plan of Treatment Not on file documented as of this encounter Goals Goal Patient Goal Type Associated Problems Recent Progress Patient-Stated? Author Home General Yes Aundrea Jarrell LSW Note: Evaluation of progress towards goal: Safe dc transition from hospital to home. documented as of this encounter Visit Diagnoses Not on filedocumented in this encounter Additional Health Concerns Assessment Noted Time PHQ-9 Depression Total Score: 0 08/31/19 9:23 AM EDT A Body Mass Index follow-up plan has been documented for the patient 12/29/2019 11:53 AM EST documented as of this encounter Care Teams Urinalysis Technician Relationship Specialty Start Date End Date Services, [facility] [address] [place], [place] PCP - General Family Medicine 03/03/18 documented as of this encounter
--- OUTSIDE RECORDS SUMMARY | 2024-09-02 19:49 | XMS_ITS | Encounter Summary ---
Author Organization [employer] [facility] tem Address [id number] [place] [address] Care Team Providers Care Poultry Process Worker Name Role Phone Services, [facility] Primary Care Provider Reason for Referral * Consultation (Routine) - Closed Specialty Diagnoses / Procedures Referred By Contac t Referred To Contact BLOOD MANAGEMENT Diagnoses Hemoglobin C trait Anemia during in third trimester Type 1 diabetes mellitus during in third trimester Type 1 diabetes mellitus with ketoacidosis without coma ([facility]) Prior with demise and current , third trimester Marissa Quinn MD Phone: tel: fax: [facility] Phone: tel: fax: Referral ID Status Reason Start Date Expiration Date Visits Re quested Visits Authorized [id number] Closed 04/07/2020 04/07/2021 1 1 Encounter Details Date Type Department Care Team (Late st Contact Info) Description 04/07/2020 Telephone [facility] Women's Services [address] [place] [phone] Marissa Quinn MD [address] [facility] [place] [address] Social History Tobacco Use Types Packs/Day Years Used Date Smoking Tobacco: Every Day Cigarettes Vaping/E-cigarettes Smokeless Tobacco: Never Alcohol Use [...] often do you attend chur ch or church services? Never 10/11/2019 Do you belong to any clubs o r organizations such as presybeterian groups, unions, fraternal [...] Answer Date Recorded PHQ-2 Score 0 10/11/2019 [facility] of Occupat ional Health - Occupational Stress [...] No 10/10/2019 Childcare Answer Date Recorded Childcare No 02/10/2020 Employment Answer Date Recorded Employment No 02/10/2020 Purpose - Life Answer Date Recorded Purpose [...] have Coronavirus / COVID-19? No / Unsure 04/08/2020 2:24 PM EST documented as of this encounter Miscellaneous Notes * Telephone Encounter - Marissa Quinn MD - 04/07/2020 2:33 PM EST Please call patient--her blood count is low (anemia) and her iron is low as well. I've placed a blood management referral as her oral iron has not been adequate to prevent her development of anemia and we only have 2 weeks left before her . * Telephone Encounter - Denise Thomas RN - 04/07/2020 2:33 PM EST Left message for patient to call office * Telephone Encounter - Denise Thomas RN - 04/07/2020 2:33 PM EST Patient given results -- and information * Telephone Encounter - Denise Thomas RN - 04/07/2020 2:33 PM EST Phone number given for blood mgmt documented in this encounter Plan of Treatment Scheduled Referrals Name Type Priority Associated Diagnoses Orde r Schedule [facility] Outpatient Referral Routine Hemoglobin C trait (CMS-HCC) Anemia during in third trimester Type 1 diabetes mellitus during in third trimester Type 1 diabetes mellitus with ketoacidosis without coma (CMS-HCC) Prior with demise and current , third trimester 1 Occurrences starting 04/07/2020 until 10/08/2020 documented as of this encounter Visit Diagnoses Diagnosis Anemia during in third trimester- Primary Hemoglobin C trait Other hemoglobinopathies Type 1 diabetes mellitus during in third trimester Type 1 diabetes mellitus with ketoacidosis without coma (CMS-HCC) Prior with demise and current , third trimester Iron deficiency anemia, unspecified documented in this encounter Additional Health Concerns Infection Onset Date Last Indicated Resolved Time COVID-19 Rule-Out 02/07/2021 02/07/2021 02/07/2021 4:48 PM EST Assessment Noted Time PHQ-9 Depression Total Score: 0 03/11/19 21 11:39 AM EST A Body Mass Index follow-up plan has been documented for the patient 12/29/2019 11:53 AM EST documented as of this encounter Care Teams Poultry Process Worker Relationship Specialty Start Date End Date Services, [facility] [address] [place], [place] PCP - General Family Medicine 03/03/18 documented as of this encounter
--- OUTSIDE RECORDS SUMMARY | 2024-09-02 19:49 | XMS_ITS | Encounter Summary ---
Author Organization [facility] Address [address] [place] [address] Care Team Providers Care Cosmetic Surgeon Name Role Phone Unavailable Primary Care Provider Unavailabl e Encounter Details Date Type Department Care Team (Late st Contact Info) Description 02/14/2023 Clinisync Result Encounter [facility] External Department Unsolicited Linda Childs, DO [address] [place] [address] Social History Tobacco Use Types Packs/Day Years Used Date Smoking Tobacco: Some Days Cigarettes 0.3 16 Comments:5 or less cigs/ day ; started smoking at 16yo Thinking about quitting Alcohol Use Standard Drinks/Week Comments Not Currently 0 (1 standard drink = 0.6 oz pur e alcohol) Denies alcohol use Comments Yes Sex and Gender Information Value Date Recorded Sex Assigned at Female 07/29/2022 12:29 AM EDT Legal Sex Female 7:14 PM EDT Gender Identity Female 07/29/2022 12:29 AM EDT Sexual Orientation Straight 07/29/2022 12 :29 AM EDT documented as of this encounter Plan of Treatment Not on file documented as of this encounter Procedures Procedure Name Priority Date/Time Associated Diagnosis Comments US AMNIOTIC FLUID VOLUME 02/14/2023 10:47 AM EST documented in this encounter Results * US AMNIOTIC FLUID VOLUME (02/14/2023 10:47 AM EST) Anatomical Region Laterality Modality Radiographic Edwina ging 02/14/2023 10:4 7 AM EST Narrative 02/14/2023 10:50 AM EST [address] [address] Ultrasound Report Signed Patient: JAYY MCGREGOR MR#: [id number] : 2000 Acct:[id number] Age/Sex: 22 / F ADM Date: 02/14/23 Loc: [facility] Attending Dr: Linda Childs D.O. Ordering Physician: Linda Childs D.O. Date of Service: 02/14/23 Procedure(s): US OB amniotic fluid vol Accession Number(s): [id number] cc: [facility] ; Linda Childs D.O. [place] [address] Patient Name: JAYY MCGREGOR MRN: [id number] date: 2000 Sex: F [place] [facility] [place] [facility] [place]/Order Number: [id number] Exam Date: 02/14/2023 10:25 Report Date: 02/14/2023 10:47 At the request of: LINDA CHILDS Procedure: US OB amniotic fluid vol EXAMINATION: US OB amniotic fluid vol HISTORY: OLIGOHYDRAMNIOS COMPARISON: Ultrasound OB biophysical 02/13/2023 TECHNIQUE: Limited sonographic examination for amniotic fluid volume FINDINGS: Presentation: Cephalic Heart rate: 141 bpm Amniotic fluid: 11.9 cm (normal range). GA: 35 weeks 5 days JULIANO: 03/16/2023 US/US OB amniotic fluid vol IMPRESSION: 1. Single live intrauterine . 2. Amniotic fluid volume is within normal range; improved compared to prior study. Electronically authenticated by: LUCIUS ROBERTS Date: 02/14/2023 10:47 Dictated By: Lucius Roberts M.D. Signed By: 02/14/23 1050 DD/ 1047 TD/TT: [employer]: Procedure Note Radiology, Radiologist, - 02/14/2023 [place] [address] Ultrasound Report Signed Patient: JAYY MCGREGOR JMR#: [id number] : 2000Acct:[id number] Age/Sex: 22 / FADM Date: 02/14/23 Loc: [facility] Attending Dr: Linda Childs D.O. Ordering Physician: Linda Childs D.O. Date of Service: 02/14/23 Procedure(s): US OB amniotic fluid vol Accession Number(s): [id number] cc: [facility] ; Linda Childs D.O. [place] [address] Patient Name: JAYY MCGREGOR MRN: [facility]:[id number] date: 2000 Sex: F [place] [facility] [place] [facility] [place]ion/Order Number: [id number] Exam Date: 02/14/2023 10:25 Report Date: 02/14/2023 10:47 At the request of: LINDA CHILDS Procedure: US OB amniotic fluid vol EXAMINATION: US OB amniotic fluid vol HISTORY: OLIGOHYDRAMNIOS COMPARISON: Ultrasound OB biophysical 02/13/2023 TECHNIQUE: Limited sonographic examination for amniotic fluid volume FINDINGS: Presentation: Cephalic Heart rate: 141 bpm Amniotic fluid: 11.9 cm (normal range). GA: 35 weeks 5 days JULIANO: 03/16/2023 US/US OB amniotic fluid vol IMPRESSION: 1. Single live intrauterine . 2. Amniotic fluid volume is within normal range; improved compared toprior study. Electronically authenticated by: LUCIUS ROBERTS Date: 02/14/2023 10:47 Dictated By: Lucius Roberts M.D. Signed By:02/14/23 105 DD/ 46 TD/TT: [employer]: us Linda Childs DO IMG XR PROCEDURES Final Result documented in this encounter Visit Diagnoses Not on filedocumented in this encounter
--- OUTSIDE RECORDS SUMMARY | 2024-09-02 19:49 | XMS_ITS | Encounter Summary ---
Author Organization [facility] tem Address [id number] [place] [address] Care Team Providers Care Software Sales Representative Name Role Phone Services, [facility] Primary Care Provider Encounter Details Date Type Department Care Team (Latest Contact Info) Description 08/27/2024 Travel Social History Tobacco Use Types Packs/Day Years [...] often do you attend chur ch or islam services? Never 10/11/2019 Do you belong to any clubs o r organizations such as caodaism groups, unions, fraternal or athletic groups, or [...] Answer Date Recorded Total Score 0 01/25/2024 [facility] of Occupat ional Health - Occupational Stress [...] things needed for daily living? No 10/10/2019 [place] Depression Scale Answer Date Recorded [place] Depression Scale Total 0 02/26/2023 The thought [...] Recorded Do you need help finding a [facility] career center and/or a training program? No [...] documented as of this encounter Care Teams Software Sales Representative Relationship Specialty Start Date End Date Services, [facility] [address] [place], [place] PCP - General Family Medicine 03/03/18 documented as of this encounter
--- OUTSIDE RECORDS SUMMARY | 2024-09-02 19:49 | XMS_ITS | Patient Health Record ---
Author Organization [facility] Address [address] [place], [place] [address] Care Team Providers Care Developmental Mathematics Instructor Name Role Phone Sujey Rodriguez Unavailable [phone] Bobbi Churchill Unavailable [phone] Allergies Allergen (clinical drug ingredient) Drug/Non Drug Allergy documented on EMR Reaction Allergy Type Onset Date Status SEASONAL ALLERGIES (uncoded) Unknown Allergy 09/27/2015 Active Reason For Referral No Information Medications Medication SIG (Take, Route, Fr equency, Duration) Notes Start Date End Date Status Amoxicillin 02/02/2022 Not-Bijan ing HumaLOG Active Ibuprofen Active Immunizations Vaccine Route Administration Date Status Comme nts *DTaP (Infanrix)-VFC OTH Other/Miscellaneous 2000 Administered Status:Complete ,Reason:Given or N/A *DTaP (Infanrix)-VFC OTH Other/Miscellaneous 2000 Administered Status:Complete ,Reason:Given or N/A , Sequence #2 *DTaP (Infanrix)-VFC OTH Other/Miscellaneous 2000 Administered Status:Complete ,Reason:Given or N/A , Sequence #3 *DTaP (Infanrix)-VFC OTH Other/Miscellaneous 04/16/2002 Administered Status:Complete ,Reason:Given or N/A , Sequence #4 *DTaP (Infanrix)-VFC OTH Other/Miscellaneous 09/15/2004 Administered Status:Complete ,Reason:Given or N/A , Sequence #5 *Hep A, ped/adol, 2 dose-VFC OTH Other/Miscellaneous 07/24/2012 Administered Status:Complete ,Reason:Given or N/A *Hep A, ped/adol, 2 dose-VFC IM Intramuscular 09/27/2015 Administered Status:Complete ,Reason:Given or N/A *Hep B, adult dosage-Private OTH Other/Miscellaneous 2000 Administered Status:Complete ,Reason:Given or N/A *Hep B, adult dosage-Private OTH Other/Miscellaneous 2000 Administered Status:Complete ,Reason:Given or N/A , Sequence #2 *Hep B, adult dosage-Private OTH Other/Miscellaneous 04/16/2002 Administered Status:Complete ,Reason:Given or N/A , Sequence #3 *MMR-VFC OTH Other/Miscellaneous 04/16/2002 Administered Status:Complete ,Reason:Given or N/A *MMR-VFC OTH Other/Miscellaneous 09/15/2004 Administered Status:Complete ,Reason:Given or N/A , Sequence #2 *Tdap (Adacel)-VFC OTH Other/Miscellaneous 07/24/2012 Administered Status:Complete ,Reason:Given or N/A *Tdap (Adacel)-VFC OTH Other/Miscellaneous 03/03/2014 Administered Status:Complete ,Reason:Given or N/A *Varicella (Varivax)-VFC OTH Other/Miscellaneous 09/26/2015 Administered Status:Complete ,Reason:Given or N/A ,HISTORY OF CHICKENPOX INFECTION--VACC INE NOT GOVEN DTaP-Hep B-IPV OTH Other/Miscellaneous 2000 Administered Status:Complete ,Reason:Given or N/A DTaP-Hep B-IPV OTH Other/Miscellaneous 2000 Administered Status:Complete ,Reason:Given or N/A , Sequence #2 DTaP-Hep B-IPV OTH Other/Miscellaneous 04/16/2002 Administered Status:Complete ,Reason:Given or N/A , Sequence #3 DTaP-Hep B-IPV OTH Other/Miscellaneous 09/15/2004 Administered Status:Complete ,Reason:Given or N/A , Sequence #4 Hib (HbOC), 4 dose schedule OTH Other/Miscellaneous 2000 Administered Status:Complete ,Reason:Given or N/A Hib (HbOC), 4 dose schedule OTH Other/Miscellaneous 2000 Administered Status:Complete ,Reason:Given or N/A , Sequence #2 Hib (HbOC), 4 dose schedule OTH Other/Miscellaneous 04/16/2002 Administered Status:Complete ,Reason:Given or N/A , Sequence #3 HPV (human papillomavirus), quadrivalent, 3 dose schedule IM Intramuscular 03/03/2014 Administered Status:Complete ,Reason:Given or N/A HPV (human papillomavirus), quadrivalent, 3 dose schedule IM Intramuscular 09/27/2015 Administered Status:Complete ,Reason:Given or N/A Influenza, quadrivalent, split, preservative free, 3 years or older IM Intramuscular 11/28/2016 Administered Status:Complete ,Reason:Given or N/A Influenza, quadrivalent, split, preservative free, 3 years or older IM Intramuscular 03/20/2018 Administered Status:Complete ,Reason:Given or N/A Meningococcal YYB9P-NTN IM Intramuscular 11/28/2016 Administered Status:Complete ,Reason:Given or N/A Meningococcal MCV4P OTH Other/Miscellaneous 07/24/2012 Administered Status:Complete ,Reason:Given or N/A Pneumococcal conjugate PCV 7 OTH Other/Miscellaneous 2000 Administered Status:Complete ,Reason:Given or N/A Pneumococcal conjugate PCV 7 OTH Other/Miscellaneous 2000 Administered Status:Complete ,Reason:Given or N/A , Sequence #2 Social History Sex Assigned At : Social History Observation Description Sex Assigned At Female Tobacco Use/Smoking Question Answer Notes Additional Findings: Tobacco User Light cigarett e smoker ((1-9 cigs/day) PRAPARE Question Answer Notes Date Completed/Updated: 03/06/2023 penelopee nt entered data What is your current housing situation? I have housing patient entered data What is the highest level of school that you have finished? 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 No patient entered dustin a How often do you see or talk to people that you care about and feel close to? (For example: talking to friends on the phone, visiting friends or family, going to scientologist or club meetings) More than 5 times a week patient entered data How stressed are you? Stress is when someone feels tense, nervous, anxious, or can't sleep at night because their mind is troubled A little bit patient entered data In the past year have you sp ent more than 2 nights in a row in a skilled nursing, longterm, usp center, or juvenile correctional facility? No patient entered dustin a Do you feel physically and emotionally safe where you currently live? Yes patient entered data In the past year, have you b een afraid of your partner or ex-partner? No patient entered data Are you a refugee? No patient en tered data What country are you from? [place] luz boyce entered data Problems Problem Type SNOMED Code ICD Code Onset Dates Problem Status W/U Status Risk Notes Problem Tobacco user (792650880) Cigarette nicotine dependence without complication (F17.210) Active confirmed Problem Body mass index 30.00 to 34.99 (293726594823284 ) BMI 31.0-31.9,adul t (Z68.31) Active confirmed Problem Reactive airway disease (410433840854) Reactive airway disease (J45.909) Active confirmed Comment:-Was dx yesterday in ER -Was given ventolin inhaler to be used as needed -Filled out form for school; paperwork scanned in, Problem Intermenstrual bleeding - irregular (83843865) Breakthrough bleeding on Nexplanon (N92.1) Active confirmed Comment:- Will follow up with Dr Estrella's office, otherwise patient is welcome to return for management in our office., Problem Menorrhagia (310285059) Menorrhagia (N92.0) Active confirmed Comment:menarc he at 10 years old, cycles regular, progressively getting heavier, occasional dysmenorrhea was started on ocp, mother desires alternate form of contraception, desires depo for now until can get nexplanon, discussed risks of irregular menstruation with nexplanon., Problem Migraine with aura (3331770) Migraine with aura (G43.109) Active confirmed Comment:-Migra ine with aura of unknown etiology; newer onset -Has not had another migraine since last visit -Has headache currently; not migrainous in nature; more consistent with tension BENNETT -Pt's father and pt feel that may be r/t d/t lack of sleep, irregular sleep pattern, irregular meals -Discussed importance of more strict diabetes control, more regular meals, and regular sleep pattern and sleep hygiene -At this pt HAs are only 1-2x/month; no need for prophylaxis at this pt -Iburpofen helps; c/w ibuprofen prn; can use excedrin prn -If symptoms worsen or do not improve; RTO before, patient, father, and mother verified understanding, Problem 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 - Will refer to Dr Tejeda, Problem Subcutaneous nodule (09849911) Nodule, subcutaneous (R22.9) Active confirmed Comment:-Right tricep -Secondary to inflammation from insulin needle irration -No obvious abscess, drainage, or infection -Encouraged use of warm compresses -Do not pick; if symptoms worsen; RTC; PVU, Problem Pain of right knee region (finding) (715213218619221 ) Knee pain, right (M25.561) Active confirmed Comment:-Struc turally integrity of the right knee is intact -Advise pt to take ibuprofen prn for pain, ice, rest, wearing a compression sleeve and elevate when knee is hurting -If knee becomes more bothersome or the frequency of knee pain increases; f/u for possible PT or ortho referral, Plan Of Treatment No Information Insurance Providers Payer Name Payer Address Payer Phone Subscriber Number Group Number Insured Name Patient Relationship to Insured Coverage Start Date Coverage End Date [facility] [address] [place], [place] [id number] Savi Mcgregor Self - patient is the insured [facility] [address] [place], [place] [phone] [id number] Zari Mcgregor Natural Child - Insured does not have Financial Responsibility (includes legally adopted child) 3 zzDUnite d HC-Denta quest [facility] [address] [place] [address] [id number] Savi Mcgregor Self - patient is the insured 2 DMedicai d [employer] after [facility] [address] [place], [place] [id number] Savi Mcgregor Self - patient is the insured 2 DDelta Dental [facility] [address] [place] [address] [id number] Savi Mcgregor Self - patient is the insured 3 Medical (General) History Medical History History ICD Code CHILDHOOD DISEASES/ILLNESSES : Positive history for chicken pox, ProblemStatus: Inactive, , Diabetes Mellitus, Type I, ProblemStatus : Active, , Follow-up examination (V67.5 9), COMMENTS: ASSESSMENT: OM RESOLVED , normal ears and hearing, ProblemStatus: Inactive, , MEDICAL: Ear infections, ProblemStatus: Inactive, , Middle ear infection, DESCRIPTION: Otiti s media, ProblemStatus: Inactive, , Reactive airway disease, ProblemStatus: Active, , Surgical History Surgery Date(Month/Year) Section - 2, COMMENTS: , ProblemStatus: Active, None, ProblemStatus: Active, 2016-11-28
--- OUTSIDE RECORDS SUMMARY | 2024-09-02 19:49 | XMS_ITS | Clinical Summary ---
Author Organization [facility] Healthcare Address [address] [place] [address] Care Team Providers Care Transplant Worker Name Role Phone Unavailable Primary Care Provider Unavailabl e Allergies No known active allergies Medications Insulin Lispro (HumaLOG) 100 UNIT/ML solution inject by subcutaneous route as per insulin sliding scale protocol Subcutaneous Active insulin glargine (Lantus) 100 UNIT/ML injection Inject 35 Units under the skin at bedtime. Active Drospirenone 4 MG tablet Take 4 mg by mouth in the morning. 4 Active Active Problems Problem Noted Date Diagnosed Date Anemia 08/03/2022 Diabetic ketoacidosis associ ated with type 1 diabetes mellitus 08/03/2022 Other hammer toe(s) (acquired), unspecified foot 08/03/2022 Type 1 diabetes mellitus 08/03/2022 Type 2 diabetes mellitus without complications 0 08/03/2022 Family History Medical History Relation Name Comments Diabetes Father Hypertension Father Hypertension Mother Relation Name Status Comments Father Alive Mother Alive Social History Tobacco Use Types Packs/Day Years Used Date Smoking Tobacco: Some Days Cigarettes 0.3 16 Tobacco Cessation:Ready to Q uit: Not Asked; Counseling Given: Not Answered Comments:5 or less cigs/ day; started smoking at 16yo Thinking about quitting Alcohol Use Standard Drinks/Week Comments Not Currently 0 (1 standard drink = 0.6 oz pur e alcohol) Denies alcohol use, Comments No Sex and Gender Information Value Date Recorded Sex Assigned at Female 07/29/2022 12:29 AM EDT Legal Sex Female 7:14 PM EDT Gender Identity Female 07/29/2022 12:29 AM EDT Sexual Orientation Straight 07/29/2022 12 :29 AM EDT Last Filed Vital Signs Vital Sign Reading Time Taken Comments Blood Pressure 104/70 04/02/2023 1:50 PM EST Pulse - - Temperature - - Respiratory Rate - - Oxygen Saturation - - Inhaled Oxygen Concentration - - Weight 90.8 kg (200 lb 1.9 oz) 04/02/2023 1:50 P M EST Height 162.6 cm (5' 4 ) 08/03/2022 1:39 PM EDT Body Mass Index 34.35 08/03/2022 1:39 PM EDT Plan of Treatment Not on file Insurance [employer] MEDICAID
--- OUTSIDE RECORDS SUMMARY | 2024-09-02 19:49 | XMS_ITS | Encounter Summary ---
[facility] Address [id number] [place] [address] Care Team Providers Care Cyber Engineer Name Role Phone Services, [facility] Primary Care Provider Reason for Visit * Reason Comments Med Refill Encounter Details Date Type Department Care Team (Late st Contact Info) Description 04/02/2022 Refill [facility] [address] [facility] [place] [phone] Feli Mcgregor, HOT TOP LINER-PEDIGREE TRACER [address] [facility] [place], [place] [phone] Social History Tobacco Use Types Packs/Day Years Used Date Smoking Tobacco: Every Day Cigarettes Vaping/E-cigarettes Smokeless Tobacco: Never Alcohol Use Standard Drinks/Week Comments Yes 0 (1 standard drink = 0.6 oz [...] 10/11/2019 How often do you attend chur or restorationist services? Never 10/11/2019 Do you belong to any clubs o r organizations such as yazidi groups, unions, fraternal or athletic groups, or [...] PHQ-2 Answer Date Recorded Total Score 0 11/09/2021 [facility] [place] of Occupat ional Health - Occupational Stress [...] things needed for daily living? No 10/10/2019 [place] Depression Scale Answer Date Recorded [place] Depression Scale Total 0 06/02/2020 The thought of harming myself has occurred to me . Never 06/02/2020 Childcare Answer Date Recorded Do problems getting child ca re make it difficult for you to work or study? No 04/25/2020 Employment Answer Date Recorded Do you need help finding a l al career center and/or a training program? No [...] Noted Time PHQ-9 Depression Total Score: 0 11/10/19 22 11:34 AM EDT A Body Mass Index follow-up plan has been documented for the patient 12/29/2019 11:53 AM EST documented as of this encounter Care Teams Cyber Engineer Relationship Specialty Start Date End Date Services, [facility] [address] [place], [place] PCP - General Family Medicine 03/03/18 documented as of this encounter
--- OUTSIDE RECORDS SUMMARY | 2024-09-02 19:49 | XMS_ITS | Encounter Summary ---
Author Organization [facility] Address [id number] [place] [address] Care Team Providers Care Pole Peeling Machine Operator Name Role Phone Services, [facility] Primary Care Provider Encounter Details Date Type Department Care Team (Late st Contact Info) Description 01/27/2020 Telephone Maternal- Medicine at [facility] [address] [place] [phone] Suellen Bhatt, [facility] Social History Tobacco Use Types Packs/Day Years [...] often do you attend chur ch or uatsdin services? Never 10/11/2019 Do you belong to any clubs o r organizations such as temple groups, unions, fraternal or athletic groups, or [...] Answer Date Recorded PHQ-2 Score 0 10/11/2019 [facility] of Occupat ional [facility] [place] - Occupational Stress Questionnaire Answer Date Recorded [...] have Coronavirus / COVID-19? No / Unsure 01/27/2020 1:31 PM EST documented as of this encounter Plan of Treatment Not on file documented as of this encounter Visit Diagnoses Not on filedocumented in this encounter Additional Health Concerns Infection [...] documented as of this encounter Care Teams Pole Peeling Machine Operator Relationship Specialty Start Date End Date [facility], [address] [place], [place] PCP - General Family Medicine 03/03/18 documented as of this encounter
--- OUTSIDE RECORDS SUMMARY | 2024-09-02 19:49 | XMS_ITS | Encounter Summary ---
Author Organization [facility] Address [address] [place] [address] Care Team Providers Care Director Of Market Analysis Name Role Phone Unavailable Primary Care Provider Unavailabl e Encounter Details Date Type Department Care Team (Late st Contact Info) Description 10/03/2022 Abstract [facility] [address] [place] [address] Laury Dietrich LPN [address] [facility] [address] [facility] [place] [address] Social History Tobacco Use Types Packs/Day Years [...] Orientation Straight 07/29/2022 12 :29 AM EDT COVID-19 Exposure Response Date Recorded In the last 10 days, have yo u been in contact with someone who was confirmed or suspected to have Coronavirus/COVID-19? No / Unsure 09/05/2022 4:42 PM EDT documented as of this encounter Plan of Treatment Not on file documented as of this encounter Visit Diagnoses Not on filedocumented in this encounter
--- OUTSIDE RECORDS SUMMARY | 2024-09-02 19:49 | XMS_ITS | Encounter Summary ---
Author Organization [facility] Address [address] [place] [address] Care Team Providers Care Major Gifts Manager Name Role Phone Unavailable Primary Care Provider Unavailabl e Encounter Details Date Type Department Care Team (Late Contact Info) Description 01/31/2023 Clinisync Result Encounter [facility] External Department Unsolicited Linda Childs, DO [address] [place] [address] Social History Tobacco Use Types Packs/Day Years [...] suspected to have Coronavirus/COVID-19? No / Unsure 01/10/2023 11:41 AM EST documented as of this encounter Plan of Treatment Not on file documented as of this encounter Procedures Procedure Name Priority Date/Time Associated Diagnosis Comments US OB BPP W NON-STRESS 01/31/2023 9:43 PM EST documented in this encounter Results * US OB BPP W NON-STRESS (01/31/2023 9:43 PM EST) Anatomical Region Laterality Modality Other 01/31/2023 9:43 PM EST Narrative 01/31/2023 9:46 [place] [address] Ultrasound Report Signed Patient: JAYY MCGREGOR MR#: [id number] : 2000 Acct:[id number] Age/Sex: 22 / F ADM Date: 01/31/23 Loc: US Attending Dr: Linda Childs D.O. Ordering Physician: Linda Childs D.O. Date of Service: 01/31/23 Procedure(s): US OB BPP w non-stress Accession Number(s): [id number] cc: [facility] ; Linda Childs D.O. [address] [address] Patient Name: JAYY MCGREGOR MRN: [id number] date: 2000 Sex: F Assigned Patient Location: US Current Patient Location: Accession/Order Number: [id number] Exam Date: 01/31/2023 11:40 Report Date: 01/31/2023 21:43 At the request of: LINDA CHILDS Procedure: US OB BPP w non-stress EXAMINATION: US OB BPP w non-stress HISTORY: DIABETES MELLITUS E10.69 COMPARISON: Ultrasound OB biophysical 01/23/2023 TECHNIQUE: Ultrasound biophysical profile was performed in the radiology department. BREATHING MOVEMENTS: 2.0 GROSS BODY MOVEMENTS: 2.0 TONE: 2.0 QUALITATIVE AMNIOTIC FLUID VOLUME: 2.0 PRESENTATION: CEPHALIC HEART RATE: 135.7 bpm bpm. AMNIOTIC FLUID VOLUME: 9.4 cm GESTATIONAL AGE: 33 weeks 5 days CONCLUSION: Total biophysical profile score 8.0. Electronically authenticated by: LUCIUS ROBERTS Date: 01/31/2023 21:43 Dictated By: Lucius Roberts M.D. Signed By: 01/31/232145 DD/ 42 TD/TT: Jewelry Bench Molder: Procedure Note Radiology, Radiologist, - 04/11/2023 [place] [address] Ultrasound Report Signed Patient: JAYY MCGREGOR JMR#: [id number] : 2000Acct:[id number] Age/Sex: 22 / FADM Date: 01/31/23 Loc: US Attending Dr: Linda Childs D.O. Ordering Physician: Linda Childs D.O. Date of Service: 01/31/23 Procedure(s): US OB BPP w non-stress Accession Number(s): [id number] cc: [facility] ; Linda Childs D.O. [place] [address] Patient Name: JAYY MCGREGOR MRN: [facility]:[id number] date: 2000 Sex: F Assigned Patient Location: Current Patient Location: Accession/Order Number: [id number] Exam Date: 01/31/2023 11:40 Report Date: 01/31/2023 21:43 At the request of: LINDA CHILDS Procedure: US OB BPP w non-stress EXAMINATION: US OB BPP w non-stress HISTORY: DIABETES MELLITUS E10.69 COMPARISON: Ultrasound OB biophysical 01/23/2023 TECHNIQUE: Ultrasound biophysical profile was performed in the radiology department. BREATHING MOVEMENTS: 2.0 GROSS BODY MOVEMENTS: 2.0 TONE: 2.0 QUALITATIVE AMNIOTIC FLUID VOLUME: 2.0 PRESENTATION: CEPHALIC HEART RATE: 135.7 bpm bpm. AMNIOTIC FLUID VOLUME: 9.4 cm GESTATIONAL AGE: 33 weeks 5 days CONCLUSION: Total biophysical profile score 8.0. Electronically authenticated by: LUCIUS ROBERTS Date: 01/31/2023 21:43 Dictated By: Lucius Roberts M.D. Signed By:01/31/232145 DD/ 42 TD/TT: Jewelry Bench Molder: us Linda Childs DO [facility] Final Result documented in this encounter Visit Diagnoses Not on filedocumented in this encounter
--- OUTSIDE RECORDS SUMMARY | 2024-09-02 19:49 | XMS_ITS | Encounter Summary ---
Author Organization [facility] Address [address] [place] [address] Care Team Providers Care Audit Consultant Name Role Phone Unavailable Primary Care Provider Unavailabl e Encounter Details Date Type Department Care Team (Late Contact Info) Description 01/23/2023 Clinisync Result Encounter [facility] External Department Unsolicited Linda Childs, DO [address] [facility] [place] [address] Social History Tobacco Use Types Packs/Day Years [...] Diagnosis Comments US OB BPP W NON-STRESS 01/23/2023 2:31 PM EST documented in this encounter Results * US OB BPP W NON-STRESS (01/23/2023 2:31 PM EST) Anatomical Region Laterality Modality Other 01/23/2023 2:31 PM EST Narrative 01/23/2023 2:33 [place] [address] Ultrasound Report Signed Patient: JAYY MCGREGOR MR#: [id number] : 2000 Acct:[id number] Age/Sex: 22 / F ADM Date: 01/23/23 Loc: US Attending Dr: Linda Childs D.O. Ordering Physician: Linda Childs D.O. Date of Service: 01/23/23 Procedure(s): US OB BPP w non-stress Accession Number(s): [id number] cc: [facility] ; Linda Childs D.O. [place] [id number] Patient Name: JAYY MCGREGOR MRN: [facility]:[id number] date: 2000 Sex: F Assigned Patient Location: [facility] Current Patient Location: Accession/Order Number: [id number] Exam Date: 01/23/2023 13:29 Report Date: 01/23/2023 14:31 At the request of: LNIDA CHILDS Procedure: US OB BPP w non-stress EXAMINATION: US OB BPP w non-stress HISTORY: GDM insulin dependent COMPARISON: No relevant comparison available. TECHNIQUE: Ultrasound biophysical profile was performed in the radiology department. non-reactive stress testing was performed by nursing staff in the birthing center. FINDINGS: BREATHING MOVEMENTS: 2.0 GROSS BODY MOVEMENTS: 2.0 TONE: 2.0 QUALITATIVE AMNIOTIC FLUID VOLUME: 2.0 PRESENTATION: CEPHALIC HEART RATE: 139.9 bpm H.B./min AMNIOTIC FLUID VOLUME: 10.9 cm cm GESTATIONAL AGE: 32 weeks 4 days CONCLUSION: Total biophysical profile score: 8.0 Electronically authenticated by: SOPHIE DUBOIS Date: 01/23/2023 14:31 Dictated By: Sophie Dubois M.D. Signed By: 01/23/231432 DD/ 30 TD/TT: Sleeve Setter: Procedure Note Radiology, Radiologist, - 01/24/2023 [place] [address] Ultrasound Report Signed Patient: JAYY MCGREGOR JMR#: [id number] : 2000Acct:[id number] Age/Sex: 22 / FADM Date: 01/23/23 Loc: US Attending Dr: Linda Childs D.O. Ordering Physician: Linda Childs D.O. Date of Service: 01/23/23 Procedure(s): US OB BPP w non-stress Accession Number(s): [id number] cc: [facility] ; Linda Childs D.O. [place] [id number] Patient Name: JAYY MCGREGOR MRN: [facility]:[id number] date: 2000 Sex: F Assigned Patient Location: [facility] Current Patient Location: Accession/Order Number: [id number] Exam Date: 01/23/2023 13:29 Report Date: 01/23/2023 14:31 At the request of: LINDA CHILDS Procedure: US OB BPP w non-stress EXAMINATION: US OB BPP w non-stress HISTORY: GDM insulin dependent COMPARISON: No relevant comparison available. TECHNIQUE: Ultrasound biophysical profile was performed in the radiology department. non-reactive stress testing was performed by nursingstaff in the birthing center. FINDINGS: BREATHING MOVEMENTS: 2.0 GROSS BODY MOVEMENTS: 2.0 TONE: 2.0 QUALITATIVE AMNIOTIC FLUID VOLUME: 2.0 PRESENTATION: CEPHALIC HEART RATE: 139.9 bpm H.B./min AMNIOTIC FLUID VOLUME: 10.9 cm cm GESTATIONAL AGE: 32 weeks 4 days CONCLUSION: Total biophysical profile score: 8.0 Electronically authenticated by: SOPHIE DUBOIS Date: 01/23/2023 14:31 Dictated By: Sophie Dubois M.D. Signed By:01/23/23 1433 DD/ 30 TD/TT: Sleeve Setter: us Linda Childs DO [facility] Final Result documented in this encounter Visit Diagnoses Not on filedocumented in this encounter
--- OUTSIDE RECORDS SUMMARY | 2024-09-02 19:49 | XMS_ITS | Encounter Summary ---
Author Organization [facility] Address [id number] [place] [address] Care Team Providers Care Physical Therapist Clinic Director Name Role Phone Services, [facility] Primary Care Provider Encounter Details Date Type Department Care Team (Late st Contact Info) Description 03/01/2020 Telephone Maternal- Medicine at [facility] [address] [place] [address] Karla Gregory CMA Social History Tobacco Use Types Packs/Day Years Used Date Smoking Tobacco: Every Day Cigarettes Last attempted t o quit: 2020 Vaping/E-cigarettes Smokeless Tobacco: Never Alcohol Use [...] often do you attend chur ch or adventist services? Never 10/11/2019 Do you belong to any clubs o r organizations such as adventism groups, unions, fraternal or athletic groups, or [...] Answer Date Recorded PHQ-2 Score 0 10/11/2019 [facility] - Occupational Stress [...] have Coronavirus / COVID-19? No / Unsure 02/27/2020 8:10 AM EST documented as of this encounter Miscellaneous Notes * Telephone Encounter - Karla Gregory CMA - 03/01/2020 10:42 AM EST Patients manager of case called to director of golf her information. Phone number is ext [phone] Karla Gregory CMA 03/01/20 1059 documented in this encounter Plan of Treatment Not on file documented as of this encounter Visit Diagnoses Not on filedocumented in this encounter Additional Health Concerns Infection Onset Date Last Indicated Resolved Time COVID-19 Rule-Out 02/07/2021 02/07/2021 02/07/2021 4:48 PM EST Assessment Noted Time PHQ-9 Depression Total Score: 0 02/09/19 12:58 AM EST A Body Mass Index follow-up plan has been documented for the patient 12/29/2019 11:53 AM EST documented as of this encounter Care Teams Physical Therapist Clinic Director Relationship Specialty Start Date End Date Services, [facility] [address] [place] PCP - General Family Medicine 03/03/18 documented as of this encounter
--- OUTSIDE RECORDS SUMMARY | 2024-09-02 19:49 | XMS_ITS | Encounter Summary ---
Author Organization [facility] Address [address] [place] [address] Care Team Providers Care Capability Lead Name Role Phone Unavailable Primary Care Provider Unavailabl e Encounter Details Date Type Department Care Team (Late st Contact Info) Description 02/13/2023 Clinisync Result Encounter [facility] External Department Unsolicited Linda Childs, DO [address] [facility] [place] [address] Social History Tobacco Use Types Packs/Day Years [...] Diagnosis Comments US OB BPP W NON-STRESS 02/13/2023 11:52 AM EST documented in this encounter Results * US OB BPP W NON-STRESS (02/13/2023 11:52 AM EST) Anatomical Region Laterality Modality Other 02/13/2023 11:5 2 AM EST Narrative 02/13/2023 11:54 [place] [address] Ultrasound Report Signed Patient: JAYY MCGREGOR MR#: [id number] : 2000 Acct:[id number] Age/Sex: 22 / F ADM Date: 02/13/23 Loc: [facility] 257-[address]: Linda Childs D.O. Ordering Physician: Linda Childs D.O. Date of Service: 02/13/23 Procedure(s): US OB BPP w non-stress Accession Number(s): [id number] cc: [facility] ; Linda Childs D.O. [place] [address] Patient Name: JAYY MCGREGOR MRN: [facility]:[id number] date: 2000 Sex: F Assigned Patient Location: Current Patient Location: [facility] Accession/Order Number: [id number] Exam Date: 02/13/2023 11:22 Report Date: 02/13/2023 11:52 At the request of: LINDA CHILDS Procedure: US OB BPP w non-stress EXAMINATION: US OB BPP w non-stress HISTORY: Type 1 diabetes COMPARISON: No relevant comparison available. TECHNIQUE: Ultrasound biophysical profile was performed in the radiology department. FINDINGS: BREATHING MOVEMENTS: 2.0 GROSS BODY MOVEMENTS: 2.0 TONE: 2.0 QUALITATIVE AMNIOTIC FLUID VOLUME: 2.0 PRESENTATION: CEPHALIC HEART RATE: 155.2 bpm H.B./min AMNIOTIC FLUID VOLUME: 7.0 cm cm GESTATIONAL AGE: 35 weeks 4 days CONCLUSION: Total biophysical profile score: 8.0 Electronically authenticated by: SOPHIE DUBOIS Date: 02/13/2023 11:52 Dictated By: Sophie Dubois M.D. Signed By: 02/13/23 1154 DD/ 51 TD/TT: Medical Records Custodian: Procedure Note Radiology, Radiologist, - 04/11/2023 [place] [address] Ultrasound Report Signed Patient: JAYY MCGREGOR JMR#: [id number] : 2000Acct:[id number] Age/Sex: 22 / FADM Date: 02/13/23 Loc: [facility] 257-[address]: Linda Childs D.O. Ordering Physician: Linda Childs D.O. Date of Service: 02/13/23 Procedure(s): US OB BPP w non-stress Accession Number(s): [id number] cc: [facility] ; Linda Childs D.O. The [place] [id number] Patient Name: JAYY MCGREGOR MRN: [facility]:[id number] date: 2000 Sex: F Assigned Patient Location: Current Patient Location: [facility] Accession/Order Number: [id number] Exam Date: 02/13/2023 11:22 Report Date: 02/13/2023 11:52 At the request of: LINDA CHILDS Procedure: US OB BPP w non-stress EXAMINATION: US OB BPP w non-stress HISTORY: Type 1 diabetes COMPARISON: No relevant comparison available. TECHNIQUE: Ultrasound biophysical profile was performed in the radiology department. FINDINGS: BREATHING MOVEMENTS: 2.0 GROSS BODY MOVEMENTS: 2.0 TONE: 2.0 QUALITATIVE AMNIOTIC FLUID VOLUME: 2.0 PRESENTATION: CEPHALIC HEART RATE: 155.2 bpm H.B./min AMNIOTIC FLUID VOLUME: 7.0 cm cm GESTATIONAL AGE: 35 weeks 4 days CONCLUSION: Total biophysical profile score: 8.0 Electronically authenticated by: SOPHIE DUBOIS Date: 02/13/2023 11:52 Dictated By: Sophie Dubois M.D. Signed By:02/13/23 1154 DD/ 51 TD/TT: Medical Records Custodian: Linda Childs DO [facility] Final Result documented in this encounter Visit Diagnoses Not on filedocumented in this encounter
--- OUTSIDE RECORDS SUMMARY | 2024-09-02 19:49 | XMS_ITS | Encounter Summary ---
Author Organization [facility] Address [address] [place] [address] Care Team Providers Care Outreach Worker Name Role Phone Unavailable Primary Care Provider Unavailabl e Encounter Details Date Type Department Care Team (Late Contact Info) Description 06/26/2022 Abstract [facility] [address] [place] [id number] Gordno Hall MD [address] [place] [address] Social History Tobacco Use Types Packs/Day Years Used Date Smoking Tobacco: Some Days Cigarettes 0.3 16 Tobacco Cessation:Ready to Q uit: Not Asked; Counseling Given: Not Answered Comments:5 or less cigs/ day Thinking about quitting Alcohol Use Standard Drinks/Week Comments Not Currently 0 (1 standard drink = 0.6 oz pur e alcohol) Denies alcohol use Comments Unknown Sex and Gender Information Value Date Recorded [...]
--- OUTSIDE RECORDS SUMMARY | 2024-09-02 19:49 | XMS_ITS | Clinical Summary ---
Author Organization [facility] Address [address] [place] [address] Care Team Providers Care Physical Medicine Teacher Name Role Phone Unavailable Primary Care Provider Unavailabl e Social History Tobacco Use Types Packs/Day Years Used Date Smoking Tobacco: Never Assessed Comments Unknown Sex and Gender Information Value Date Recorded Sex Assigned at Not on file Legal Sex Female 12:16 AM EDT Gender Identity Not on file Sexual Orientation Not on file Plan of Treatment Not on file
--- OUTSIDE RECORDS SUMMARY | 2024-09-02 19:49 | XMS_ITS | Clinical Summary ---
Author Organization [facility] tem Address [id number] [place] [address] Care Team Providers Care Long Goods Drier Name Role Phone Services, [facility], [facility] Primary Care Provider Allergies No known active allergies Medications glucagon HCL (GLUCAGON, HCL, EMERGENCY KIT) 1 mg recon soln Inject 1 mg as directed as needed (severe hypoglycemia or seizure). 2 each 1 08/31/19 23 Active acetone, urine, test strip 1 strip by miscellaneous route every 4 (four) hours as needed (illness or hyperglycemia). 100 strip 3 08/31/19 23 Active Additional Information Patient not taking.Reported on 01/25/2024 acetaminophen (TYLENOL EXTRA STRENGTH) 500 mg tablet Take 2 tablets (1,000 mg total) by mouth every 8 (eight) hours as needed for pain. 30 tablet 02/20/19 24 Active Additional Information Patient not taking.Reported on 01/25/2024 ibuprofen (MOTRIN) 800 mg tablet Take 1 tablet (800 mg total) by mouth every 8 (eight) hours as needed for pain. 30 tablet 02/20/19 24 Active alcohol swabs pads, medicatedIndicati ons:Type 1 diabetes mellitus during in third trimester Use as directed prior to insulin injections 150 each 11 09/14/19 24 Active drospirenone, contraceptive, 4 mg (28) tablet Take 4 mg by mouth in the morning. 84 tablet 3 01/25/20 24 Active blood-glucose meter (ClickatellTOUCH VERIO REFLECT METER) miscIndications:T ype 1 diabetes mellitus with hyperglycemia (CMS-HCC) 1 Device by miscellaneous route in the morning. 1 each 04/15/19 25 Active blood-glucose sensor (DEXCOM G7 SENSOR) deviceIndications :Type 1 diabetes mellitus with hyperglycemia (CMS-HCC) Change sensor every 10 days 3 each 04/15/19 25 Active insulin glargine (LANTUS SOLOSTAR U-100 INSULIN) 100 unit/mL (3 mL) insulin penIndications:Ty pe 1 diabetes mellitus with hyperglycemia (CMS-HCC) Use as directed up to 50 units daily when NOT wearing insulin pump 15 mL 11 04/15/19 25 Active lancets (Craft Dragon DELICA PLUS LANCET) 33 gauge miscIndications:T ype 1 diabetes mellitus with hyperglycemia (CMS-HCC) 1 Lancet by miscellaneous route 5 (five) times a day. 150 each 04/15/19 25 Active pen needle, diabetic (BD XANDER 2ND GEN PEN NEEDLE) 32 gauge x 5/32 needleIndications :Type 1 diabetes mellitus with hyperglycemia (CMS-HCC) 5 injections daily 150 each 04/15/19 25 Active insulin lispro (HumaLOG U-100 Insulin) 100 unit/mL injectionIndicati ons:Type 1 diabetes mellitus with hyperglycemia (CMS-HCC) Use as directed in insulin pump up to 66 units per day. 20 mL 04/15/19 25 Active insulin lispro (HumaLOG) 100 unit/mL insulin penIndications:Ty pe 1 diabetes mellitus with hyperglycemia (CMS-HCC) Use as directed up to 100 units daily for carb coverage and blood glucose correction when NOT wearing insulin pump 30 mL 04/15/19 25 Active Active Problems Problem Noted Date Diagnosed Date Delivery by elective section 02/16/2023 Type 1 diabetes mellitus with hyperglycemia 01/06 Labile blood glucose 11/14/2022 12 weeks gestation of 08/30/2022 Type 1 diabetes mellitus with hypoglycemia and w ithout coma 03/24/2021 Acute bronchitis 02/10/2021 Non-intractable vomiting with nausea 02/10/2021 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 TA AC. Offered FOB testing. 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: Referring Provider Ongoing OB care: Seen by MFM Age at diagnosis Social info/admits/barrier White classification A1c T1: T2: T3: Tobacco Daily smoker, 1/2ppd Maternal echo/ECG (>35 , DM > 10 y, HTN) results: TSH/T4 0.5 (08/19/22) 24H urine/ baseline labs 24H: mg Baseline labs: nl/abnormal Dental Ophthalmology Aspirin Anatomy Echo Growth/ANFS Post-delivery meds Delivery GA/route Insulin pump in place 03/24/20212022 Diabetic ketoacidosis withou t coma associated with type 1 diabetes mellitus 02/07/2021 03/24/2021 Type 1 diabetes mellitus in , second trimester 02/07/2021 10/26/2022 Uncontrolled type 1 diabetes mellitus with hyperglycemia 12/21/2020 03/24/2021 Non-reactive NST (non-stress test) 04/19/2020 04/28/2020 Decreased movement 04/16/2020 Iron deficiency anemia, unspecified 04/08/2020 09/14/2023 Anemia during in third trimester 04/07/2020 04/28/2020 Overview (04/07/2020): Hb C Trait 04/06/2020 9.9 /29.6 MCV 71 Ferritin 12 Iron 30 (low) Iron sat 5 (low) Blood management referral DKA (diabetic ketoacidoses) 02/10/2020 03/08/2020 Overview (11/05/2020): 11/05 Regulatory Import pericardial effusion a ffecting management of mother 01/06/2020 04/28/2020 Previous delivery, antepartum 10/24/2019 06/02/2020 Overview (03/11/2020): D/t demise and macrosomia Interested in [x] consent form reviewed 02/27/20 - pt open to induction if cervix favorable, does not want to undergo long days of ripening/induction Per [facility] rec's, recommend delivery at 37wks 03/11/2020 Patient desires repeat Scheduled for 04/21/2020 at 37w0d High risk , antepartum 10/24/2019 04/28/2020 Overview (2020): Lives in [place], [place] - labs ordered 10/23 - Pt requests cfDNA, ordered 10/23, results low risk Triple genetic carrier screen Negative - ASA candidate Influenza vaccine given 10/2019 S/p Tdap 03/25/20 03/25/20 EFW 2267 61%, AC 98% GBS negative (03/31) DKA, type 1 10/11/2019 03/24/2021 Nausea and vomiting of , antepartum 0 04/28/2020 Overview (12/05/2019): On zofran, doxylamine, vitamin B6 12/05/19: Increase vitamin B6 to TID, continue Unisom nightly, add Reglan with meals, continued using zofran prn Prior with d emise and current , third trimester 10/01/2018 06/02/2020 Type 1 diabetes mellitus aff ecting in third trimester, antepartum 09/18/2018 0 Overview (09/25/2018): Diagnosed age 11 Followed by Diab Ed 08/20/18 Hb A1C 7.5 Insulin Pump Last Eye exam at beginning of Doing testing NSTx1 week, AFIx1 week and Growth q3-4wks Will increase NST to 2xweek at 36 weeks Growth US 09/03/18: EFW 3538gm >90%ile, AC >98%ile. Await repeat growth ultrasound to discuss mode of delivery and risk of shoulder dystocia 09/25/18 MFM US 36w1d EFW 4811 >90% AC>97% , supervision, high -risk, third trimester 09/04/2018 10/10/2019 Overview (09/25/2018): PPBCM: naxplanon GBS negative Maternal care for other (tonya pected) abnormality and damage, not applicable or unspecified 08/21/2018 10/10/2019 Obesity affecting in third trimester 03/11/2018 04/28/2020 Chronic ITP (idiopathic thrombocytopenia) 03/06/2018 09/04/2018 Rhino-Entero virus infection 08/21/2017 09/03/2018 Type 1 diabetes mellitus dur ing in third trimester 08/21/2017 04/28/2020 Overview (04/06/2020): - Following with MFM with blood sugar control - Baseline 24H protein ordered, not completed - has CGM and omnipod pump Admission 10/10/2019 for hyperemesis Baby asa started 11/07/19 Feb 08-Feb 11 Admission for DKA HbA1C 10/19: 8.0 02/27/2020 6.5 04/05/20: 7.4 testing: A. Targeted anatomy at 20 weeks gestation ( 12/29/19) B. Dedicated echocardiography 22 weeks gestation C. BI weekly at 32 weeks (28 weeks if co-morbidities) D. NST twice weekly and SB weekly at 36 weeks (32 weeks if co-morbidities) or BPP and NST weekly E. growth ultrasounds every 4 weeks after 28 weeks F. growth scan one week before planned delivery if attempt for a vaginal delviery Encounters Date Type Department Care Team Description 08/27/2024 6:13 PM EDT - 08/27/2024 8:30 PM EDT Emergency [facility] - Emergency [address] [place] [id number] Kayden Varela MD Viral syndrome (Primary Dx); Hyperglycemia Discharge Disposition: Home 08/27/2024 Travel from Last 3 Months Immunizations Immunization Administration Dates Next Due DTaP 09/15/2004 DTaP, Unspecified 04/16/2002, 1,2000,06/22 HPV9 09/27/2015,03/03/2014 Hep A, 2 Dose 09/27/2015,07/24/2012 Hep B / HIB 2000,2000 Hep B, Adolescent or Pediatric 04/16/2002 HiB 04/16/2002 IPV 09/15/2004,2000,2000 Influenza (IM) Preservative Free 12/02/2012 Influenza, Injectable, quadr ivalent (PF) 02/02/2023,10/24/2019,11/22/2018,03/20,11/28/2016 Influenza, Unspecified 03/22/2018 MMR 04/20/2020,09/15/2004,04/16/2002 Meningococcal MCV4P 11/28/2016,07/24/2012 Pneumococcal Conjugate 2000,2000 Polio, Unspecified 04/16/2002 Tdap 02/02/2023, 1,03/03/2014,07/24 Family History Medical History Relation Name Comments Diabetes Father Kidney disease Father KIDNEY TRANSP LANT Hypertension Mother Diabetes Paternal Grandmother Arrhythmia Neg Hx Asthma Neg Hx Clotting disorder Neg Hx Heart attack Neg Hx Heart defect Neg Hx High Cholesterol Neg Hx Seizures Neg Hx Stroke Neg Hx Sudden Neg Hx Thyroid Issues Neg Hx Relation Name Status Comments Father Mother Paternal Grandmother Social History Tobacco Use Types Packs/Day Years Used Date Smoking Tobacco: Every Day Vaping/E-cigarettes Smokeless Tobacco: Never Tobacco Cessation:Ready to Q uit: Not Asked Alcohol Use Standard Drinks/Week Comments Not Currently [...] often do you attend chur ch or congregational services? Never 10/11/2019 Do you belong to any clubs o r organizations such as restoration groups, unions, fraternal or athletic groups, or [...] Answer Date Recorded Total Score 0 01/25/2024 [facility] of Occupat ional Health - Occupational Stress [...] things needed for daily living? No 10/10/2019 [place] Depression Scale Answer Date Recorded [place] Depression Scale Total 0 02/26/2023 The thought [...] Recorded Do you need help finding a [facility] and/or a training program? No [...] Orientation Straight 05/13/2018 8: 11 AM EDT Last Filed Vital Signs Vital [...] Mass Index 26.78 08/27/2024 6:17 PM EDT Plan of Treatment Health Maintenance Due Date Last Done Comments Diabetic Ophthalmology Exam 2000 Tobacco Counseling 2000 Adult BMI Follow Up Plan 2018 Diabetic Foot Exam 2018 COVID-19 Vaccine (2023-2 5 season) 2023 Influenza Vaccine 10/06/2024 02/02/2023, , 11/22/2018, Additional history exists Depression Screening 01/24/2025 01/25/2024, 02/26/19 24 Adult BMI Screening 08/27/2025 08/27/2024 Tobacco Screening 08/27/2025 08/27/2024 Pap Smear 09/20/2025 09/20/2022 DTaP,Tdap and Td Vaccines (1 0 - Td or Tdap) 02/02/2033 02/02/2023, 03/25/2020, 03/03/2014, Additional history exists Goals Goal Patient Goal Type Associated Problems Recent Progress Patient-Stated? Author Home General Yes Aundrea Jarrell LSW Note: Evaluation of progress towards goal: Safe dc transition from hospital to home. Medical Devices Not on file Procedures Procedure Name Priority Date/Time Associated Diagnosis Comments BEDSIDE GLUCOSE Routine 08/27/2024 8:04 PM EDT POCT , URINE (NUCG) Routine 08/27/2024 6:56 PM EDT POCT NURSING URINE MACROSCOPIC UA Routine 08/27/2024 6:54 PM EDT EXTRA TUBES SST TOP Routine 08/27/2024 6 :52 PM EDT EXTRA TUBES Routine 08/27/2024 6:52 PM EDT ACETONE,(BETAHYDROXYBU TYRATE, KETONE) QUANTITATIVE SERUM STAT 08/27/2024 6:52 PM EDT COMPREHENSIVE METABOLIC PANEL STAT 08/27/2024 6:52 PM EDT CBC WITH AUTO DIFFERENTIAL STAT 08/27/2024 6:52 PM EDT ER EXTRA URINE MARBLE STAT 08/27/2024 6:43 PM EDT ER EXTRA URINE CULTURE STAT 6:43 PM EDT ER EXTRA URINE STAT 08/27/2024 6:43 PM EDT BEDSIDE GLUCOSE Routine 08/27/2024 6:42 PM EDT from Last 3 Months Results * (ABNORMAL) Bedside Glucose *Place/Obtain serum glucose if >500 per glucometer. (08/27/2024 8:04 PM EDT) Only the most recent of2 resultswithin the time period is included. Bedside Glucose (POC) 452(HH) 65 - 99 mg/dL 08/27/2024 8:27 PM EDT [facility] arterial/capilla ry 08/27/2024 8:04 PM EDT 08/27/2024 8:27 PM EDT us Kayden Varela MD POINT OF CARE TEST ORDERABLES F inal Result [facility] [address] [place] [address] [place] [address], [place] * POCT , urine (08/27/2024 6:56 PM EDT) POC Urine Negative Negative, Indeterminate 08/27/2024 6:52 PM EDT [facility] Urine 08/27/2024 6:56 PM EDT 08/27/2024 6:52 PM EDT Kayden Varela MD POINT OF CARE TEST ORDERABLES F inal Result Performing Organization Address City/[facility] Co de Phone Number [facility] [address] [place] [address] [place] [address], [place] * (ABNORMAL) POCT Nursing Urine Macroscopic UA (08/27/2024 6:54 PM EDT) POC Urine Specific [place] 1.010 1.010, 1.015, 1.020, 1.025 08/27/2024 6:46 PM EDT [facility] POC Urine Leukocyte Esterase Negative Negative 08/27/2024 6:46 PM EDT [facility] POC Urine Nitrite Negative Negative 08/27/2024 6:46 PM EDT [facility] POC Urine pH 5.5 5.0, 6.0, 6.5, 7.0, 7.5, 8.0, 8.5, 5.5 08/27/2024 6:46 PM EDT [facility] POC Urine Protein Negative Negative 08/27/2024 6:46 PM EDT [facility] POC Urine Glucose >=1000 mg/dL(A) Negative 08/27/2024 6:46 PM EDT [facility] POC Urine Ketones Negative Negative 08/27/2024 6:46 PM EDT [facility] POC Urine Urobilinogen 0.2 E.U./dL 08/27/2024 6:46 PM EDT [facility] POC Urine Bilirubin Negative Negative 08/27/2024 6:46 PM EDT [facility] POC Urine Blood/HGB Trace(A) Negative 08/27/2024 6:46 PM EDT [facility] Urine 08/27/2024 6:54 PM EDT 08/27/2024 6:46 PM EDT Kayden Varela MD POINT OF CARE TEST ORDERABLES F inal Result Performing Organization Address City/[facility]/ZIP Co de Phone Number [address] [place] [address], [place] * SST TOP (08/27/2024 6:52 PM EDT) Extra Tube Auto Resulted 08/27/2024 8:03 PM EDT [facility] Blood Venous blood / Unknown 08/27/2024 6:52 PM EDT 08/27/2024 7:02 PM EDT us Kayden Varela MD LAB BLOOD ORDERABLES Final Resu lt Performing Organization Address City/[facility]/ZIP Co de Phone Number [address] [place] [address], [place] * (ABNORMAL) CBC auto differential (08/27/2024 6:52 PM EDT) WBC 8.9 4 - 11 x10E9/L 08/27/2024 7:16 PM EDT [facility] RBC Count 4.42 3.8 - 5.2 X10E12/L 08/27/2024 7:16 PM EDT [facility] Hemoglobin 12.4 11.7 - 15.5 g/dL 08/27/2024 7:16 PM EDT [facility] Hematocrit 35.8 35 - 47 % 08/27/2024 7:16 PM EDT [facility] MCV 81 80 - 100 fL 08/27/2024 7:16 PM EDT [facility] MCH 28.0 27 - 34 pg 08/27/2024 7:16 PM EDT [facility] MCHC 34.6 32 - 36 g/dL 08/27/2024 7:16 PM EDT [facility] RDW 14.2 11.5 - 15 % 08/27/2024 7:16 PM EDT [facility] Platelet Count 237 150 - 450 X10E9/L 08/27/2024 7:16 PM EDT [facility] MPV 9.8 7 - 12 fL 08/27/2024 7:16 PM EDT [facility] Neutrophils % 81.1 % 08/27/2024 7:16 PM EDT [facility] Lymphocytes % 13.9 % 08/27/2024 7:16 PM EDT [facility] Monocytes % 4.3 % 08/27/2024 7:16 PM EDT [facility] Eosinophils % 0.4 % 08/27/2024 7:16 PM EDT [facility] Basophils % 0.3 % 08/27/2024 7:16 PM EDT [facility] Neutrophils Absolute (A) 7.2(H) 1.5 - 6.6 10*3/uL 08/27/2024 7:16 PM EDT [facility] Lymphocytes Absolute 1.2 1.0 - 3.5 10*3/uL 08/27/2024 7:16 PM EDT [facility] Monocytes Absolute 0.4 0.0 - 0.9 10*3/uL 08/27/2024 7:16 PM EDT [facility] Eosinophils Absolute 0.0 0.0 - 0.4 10*3/uL 08/27/2024 7:16 PM EDT [facility] Basophils Absolute 0.0 0.0 - 0.2 10*3/uL 08/27/2024 7:16 PM EDT [facility] Differential Type AUTOMATED DIFFERENTIAL 08/27/2024 7:16 PM EDT [facility] Blood Venous blood / Unknown Venipuncture / Unknown 08/27/2024 6:52 PM EDT 08/27/2024 7:01 PM EDT Kayden Varela MD LAB BLOOD ORDERABLES Final Resu lt Performing Organization Address City/[facility]/ZIP Co de Phone Number [address] [place] [address], [place] * Acetone, (BetaHydroxybutyrate, Ketone) quantitative, serum (08/27/2024 6:52 PM EDT) BETAHYDROXYBUTYRATE 0.05 0.02 - 0.27 mmol/L 08/27/2024 7:37 PM EDT [facility] Blood Venous blood / Unknown Venipuncture / Unknown 08/27/2024 6:52 PM EDT 08/27/2024 7:01 PM EDT Kayden Varela MD LAB BLOOD ORDERABLES Final Resu lt [facility] [address] [place] [address] [place] [address], [place] * (ABNORMAL) Comprehensive metabolic panel (08/27/2024 6:52 PM EDT) SODIUM 132(L) 134 - 146 mmol/L 08/27/2024 7:48 PM EDT [facility] POTASSIUM 3.8 3.5 - 5.0 mmol/L 08/27/2024 7:48 PM EDT [facility] CHLORIDE 99 98 - 109 mmol/L 08/27/2024 7:48 PM EDT [facility] CARBON DIOXIDE 22 22 - 32 mmol/L 08/27/2024 7:48 PM EDT [facility] ANION GAP 11 5 - 15 mmol/L 08/27/2024 7:48 PM EDT [facility] BLOOD UREA NITROGEN 11 5 - 23 mg/dL 08/27/2024 7:48 PM EDT [facility] CREATININE 0.90 0.40 - 1.00 mg/dL 08/27/2024 7:48 PM EDT [facility] Comment:METHOD TRACEABLE TO IDMS STANDARD GLUCOSE 643(HH) 65 - 99 mg/dL 08/27/2024 7:48 PM EDT [facility] CALCIUM 8.6 8.5 - 10.5 mg/dL 08/27/2024 7:48 PM EDT [facility] TOTAL PROTEIN 7.1 6.0 - 8.0 g/dL 08/27/2024 7:48 PM EDT [facility] ALBUMIN 3.3 3.2 - 5.3 g/dL 08/27/2024 7:48 PM EDT [facility] ALKALINE PHOSPHATASE 101 39 - 130 U/L 08/27/2024 7:48 PM EDT [facility] AST 21 <=41 U/L 08/27/2024 7:48 PM EDT [facility] ALT 10 <=31 U/L 08/27/2024 7:48 PM EDT [facility] BILIRUBIN,TOTAL 0.5 0.3 - 1.2 mg/dL 08/27/2024 7:48 PM EDT [facility] EGFR Non-Race Dependent >90 >=60 ml/min/1.7 3sq.m 08/27/2024 7:48 PM EDT [facility] Comment: eGFR not reported due to non-numeric value for Creatinine. Reported eGFR is based on the CKD-EPI 2020 equation that does not use a race coefficient. Blood Venous blood / Unknown Venipuncture / Unknown 08/27/2024 6:52 PM EDT 08/27/2024 7:01 PM EDT us Kayden Varela MD LAB BLOOD ORDERABLES Final Resu lt Performing Organization Address City/[facility] Co de Phone Number [address] [place] [address], [place] * Extra Urine [place] (08/27/2024 6:43 PM EDT) Extra Tube Auto Resulted 08/27/2024 8:03 PM EDT [facility] Urine Urine specimen collection, clean catch / Unknown 08/27/2024 6:43 PM EDT 08/27/2024 7:03 PM EDT us Kayden Varela MD URINE ORDERABLES Final Result Performing Organization Address [facility] Co de Phone Number [address] [place] [address], [place] * Extra Urine Culture (08/27/2024 6:43 PM EDT) Extra Tube Auto Resulted 08/27/2024 8:03 PM EDT [facility] Urine Urine specimen collection, clean catch / Unknown 08/27/2024 6:43 PM EDT 08/27/2024 7:03 PM EDT us Kayden Varela MD URINE ORDERABLES Final Result Performing Organization Address City/[facility] Co de Phone Number [address] [place] [address], [place] * Extra Urine (08/27/2024 6:43 PM EDT) Extra Tube Auto Resulted 08/27/2024 8:03 PM EDT [facility] Urine Urine specimen collection, clean catch / Unknown 08/27/2024 6:43 PM EDT 08/27/2024 7:03 PM EDT us Kayden Varela MD URINE ORDERABLES Final Result Performing Organization Address City/State/[facility] Co de Phone Number [facility] [address] [place] [address], [place] from Last 3 Months Insurance [facility] MEDICAID ANTHEM ANTHEM ANTHEM Advance Directives * Full Code (Latest Code Status on File) Date Activated Date Inactivated Comments 02/16/2023 10:51 AM 02/20/2023 4:12 PM * Full Code Date Activated Date Inactivated Comments 02/01/2023 6:07 PM 02/10/2023 5:36 PM * Full Code Date Activated Date Inactivated Comments 11/14/2022 7:45 PM 11/17/2022 6:44 PM * Full Code Date Activated Date Inactivated Comments 02/07/2021 11:30 PM 02/12/2021 1:31 PM * Full Code Date Activated Date Inactivated Comments 04/17/2020 8:36 AM 04/20/2020 6:22 PM Care Teams Long Goods Drier Relationship Specialty Start Date End Date [facility], [facility], [facility] [address] [place] [place] PCP - General Family Medicine 03/03/18
--- OUTSIDE RECORDS SUMMARY | 2024-09-02 19:49 | XMS_ITS | Encounter Summary ---
Author Organization [facility] tem Address [id number] [place] [address] Care Team Providers Care Fagot Maker Name Role Phone Services, [facility] Primary Care Provider Encounter Details Date Type Department Care Team (Late st Contact Info) Description 04/05/2020 Telephone Maternal- Medicine at [facility] [address] [place] [address] Suellen Bhatt, [facility] Social History Tobacco Use Types [...] often do you attend chur ch or jainism services? Never 10/11/2019 Do you belong to any clubs o r organizations such as zoroastrianism groups, unions, fraternal or athletic groups, or [...] Answer Date Recorded PHQ-2 Score 0 10/11/2019 [facility] of Occupat ional Health - Occupational Stress [...] documented as of this encounter Care Teams Fagot Maker Relationship Specialty Start Date End Date Services, [facility] [address] [place], [place] PCP - General Family Medicine 03/03/18 documented as of this encounter
--- OUTSIDE RECORDS SUMMARY | 2024-09-02 19:49 | XMS_ITS | Encounter Summary ---
Author Organization [facility] Address [address] [place] [address] Care Team Providers Care Master Craftsman Name Role Phone Unavailable Primary Care Provider Unavailabl e Encounter Details Date Type Department Care Team (Late st Contact Info) Description 10/17/2022 Abstract [facility] [address] [place] [id number] Sandra Castillo PA [address] [place] [address] Social History Tobacco Use Types Packs/Day Years [...]
--- OUTSIDE RECORDS SUMMARY | 2024-09-02 19:49 | XMS_ITS | Encounter Summary ---
Author Organization [facility] tem Address [id number] [place] [address] Care Team Providers Care Business Affairs Manager Name Role Phone Services, [facility] Primary Care Provider Encounter Details Date Type Department Care Team (Late st Contact Info) Description 01/26/2020 Telephone Maternal- Medicine at [facility] [address] [place] [id number] Karla Gregory CMA Social History Tobacco Use [...] often do you attend chur ch or baptism services? Never 10/11/2019 Do you belong to any clubs o r organizations such as scientology groups, unions, fraternal or athletic groups, or [...] Answer Date Recorded PHQ-2 Score 0 10/11/2019 [facility] - Occupational [...] Telephone Encounter - Karla Gregory CMA - 01/26/2020 1:30 PM EST Patient was notified of appointment scheduled for 01/26. No children, bring photo id and insurance card. Please arrive 15 min early come in entrance C , park in lot C or D. Arrive 15 min early Karla Gregory CMA 01/26/20 1330 documented in this encounter Plan of Treatment Not on file documented as of this encounter Visit Diagnoses Not on filedocumented in this encounter Additional Health Concerns Infection Onset Date Last Indicated Resolved Time COVID-19 Rule-Out 02/09/2020 02/09/2020 02/10/2020 2:07 PM EST COVID-19 Rule-Out 02/07/2021 02/07/2021 02/07/2021 4:48 PM EST Assessment Noted Time PHQ-9 Depression Total Score: 0 10/11/19 2:19 PM EDT A Body Mass Index follow-up plan has been documented for the patient 12/29/2019 11:53 AM EST documented as of this encounter Care Teams Business Affairs Manager Relationship Specialty Start Date End Date [facility], [facility] [address] [place] PCP - General Family Medicine 03/03/18 documented as of this encounter
--- OUTSIDE RECORDS SUMMARY | 2024-09-02 19:49 | XMS_ITS | Encounter Summary ---
Author Organization [facility] Marco Vasco [facility] tem Address [id number] [place] [address] Care Team Providers Care Tooth Cutter Pinion Name Role Phone Services, [facility] Primary Care Provider Encounter Details Date Type Department Care Team (Late st Contact Info) Description 11/01/2022 Telephone Maternal- Medicine at [facility] [address] [place] [address] Alexandria Mendieta RN Social History Tobacco Use Types Packs/Day Years [...] often do you attend chur ch or catholic services? Never 10/11/2019 Do you belong to any clubs o r organizations such as latter day groups, unions, fraternal or athletic groups, or [...] Answer Date Recorded Total Score 0 08/30/2022 [facility] - Occupational Stress Questionnaire Answer Date Recorded [...] things needed for daily living? No 10/10/2019 [place] Depression Scale Answer Date Recorded [place] Depression Scale Total 0 06/02/2020 The thought of harming myself has occurred to me . Never 06/02/2020 Childcare Answer Date Recorded Do problems getting child ca re make it difficult for you to work or study? No 04/25/2020 Employment Answer Date Recorded Do you need help finding a [employer] career center and/or a training program? [...] Recent Progress Patient-Stated? 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 documented as of this encounter Visit Diagnoses Not on filedocumented in this encounter Additional Health Concerns Assessment Noted Time PHQ-9 Depression Total Score: 0 08/31/19 23 9:23 AM EDT A Body Mass Index follow-up plan has been documented for the patient 12/29/2019 11:53 AM EST documented as of this encounter Care Teams Tooth Cutter Pinion Relationship Specialty Start Date End Date Services, [facility] [address] [place], [place] PCP - General Family Medicine 03/03/18 documented as of this encounter
--- OUTSIDE RECORDS SUMMARY | 2024-09-02 19:49 | XMS_ITS | Encounter Summary ---
Author Organization [facility] Address [address] [place] [address] Care Team Providers Care Gas Line Installer Name Role Phone Unavailable Primary Care Provider Unavailabl e Encounter Details Date Type Department Care Team (Late st Contact Info) Description 11/21/2022 [facility] [place] [facility] [address] [place] [address] Joaquin Childs DO [address] [place] [address] Social History Tobacco Use Types Packs/Day Years [...] suspected to have Coronavirus/COVID-19? No / Unsure 11/21/2022 9:06 AM EDT documented as of this encounter Plan of Treatment Not on file documented as of this encounter Visit Diagnoses Not on filedocumented in this encounter
--- OUTSIDE RECORDS SUMMARY | 2024-09-02 19:55 | XMS_ITS | CCD ---
Author Organization [facility] Care Team Providers Care National Account Representative Name Role Phone DR TAMI ALVAREZ Admitting Unavailable ANTONIO, DR GARRETT Attending Unavailable MISC, DR FIELD Primary Care Unavailable ANTONIO, DR GARRETT Consulting Unavailable None, Physician Primary Care Provider [phone] MD Derek Baum Admit Provider MD Derek Baum Attending Provider AMANDA Buck Other Provider Unavailab MD Good Sterling Other Provider None Primary Care Unavailable Good Calderon Consulting Unavailable Derek Baum Admitting Unavailable Derek Baum Attending Unavailable Tee Buck Consulting Unavailable Unavailable Primary Care Provider Unavailabl e LINDA ALDRIDGE Attending Unavailable SANDRA CASTILLO Attending Unavailable LINDA ALDRIDGE Attending Unavailable SANDRA CASTILLO Attending Unavailable SANDRA CASTILLO Attending Unavailable FELI NGUYEN Attending Unavailable SERVICES, [facility] Primary Care Unava ilable FELI NGUYEN Attending Unavailable SERVICES, [facility] Primary Care Unava ilable Services, Pending [facility] Primary Care Provider FELI NGUYEN Referring Unavailable SERVICES, [facility] Primary Care Unava ilable SERVICE, ANSELMO Referring Unavailable SERVICES, [facility] Primary Care Unava ilable MOUSSAQUINOTN NADIM Attending Unavailable LINDA ALDRIDGE Referring Unavailable SERVICES, [facility] Primary Care Unava ilable SOPHIE HUDSON Admitting Unavailable SOPHIE HUDSON Attending Unavailable SERVICES, [facility] Primary Care Unava ilable CHARO DANIELLE Consulting Unavailable LUTZ, RO C Attending Unavailable RO TABARES Referring Unavailable SERVICES, [facility] Unava ilable SERVICE, ANSELMO Referring Unavailable SERVICES, [facility] Unava ilable YESSY RIVERO Admitting Unavail able YESSY RIVERO Attending Unavail able SERVICES, [facility] Unava ilable CODI LEE Consulting Unavailable LASHAE FRANKLIN Attending Unavailable SERVICES, [facility] Unava ilable RO TABARES Referring Unavailable SERVICES, [facility] Unava ilable FELI NGUYEN Attending Unavailable FELI NGUYEN Referring Unavailable SERVICES, [facility] Unava ilable ARMIDA NICOLE Attending Unavailable SERVICES, [facility] Unava ilable Medications Current Medications Medication Drug Class(es) Dates Sig (Normalized) Sig (Original) acetaminophen 500 mg oral tablet (17 sources) Start: 02-20-2023 take 2 tablets by mouth every eight hours as needed for pain acetaminophen (TYLENOL EXTRA STRENGTH) 500 mg tablet Take 2 tablets (1,000 mg total) by mouth every 8 (eight) hours as needed for pain. 30 tablet 02/20/2023 Active amoxicillin 875 mg / clavulanate 125 mg oral tablet (2 sources) Penicillin-class Antibacterial Start: 02-01-2022 take 1 tablet by mouth twice daily Amoxicillin-Pot Clavulanate Active 1 TAB PO Twice Daily 24 11February 01, 2022 12:00am aspirin 81 mg chewable tablet (4 sources) Platelet Aggregation Inhibitor, Nonsteroidal Anti-inflammatory Drug Start: 11-03-2022 End: 06-11-2023 aspirin 81 mg chewable tablet Indications: with 21 completed weeks gestation , Type 1 diabetes mellitus in , second trimester , History of delivery affecting Chew 1 tablet (81 mg total) and swallow in the morning for 220 days. 30 tablet 5 11/03/2022 06/11/2023 Suspended take 1 tablet by mouth in the mo rning aspirin 81 MG EC tablet Take 81 mg by mouth in the morning. 0 Active blood-glucose meter (ONETOUC H VERIO REFLECT METER) [facility] (20 sources) Start: 04-14-2024 blood-glucose meter (ONETOUCH VERIO REFLECT METER) [facility] Indications: Type 1 diabetes mellitus with hyperglycemia ([facility]) 1 Device by miscellaneous route in the morning. 1 each 1 04/14/2024 Active Start: 01-25-2024 End: 04-14-2024 blood-glucose meter (ONETOUC H VERIO REFLECT METER) misc 1 Device by miscellaneous route in the morning. 1 each 1 01/25/2024 04/14/2024 Discontinued (Reorder) Start: 01-25-2024 blood-glucose meter (ONETOUCH VERIO REFLECT METER) misc 1 Device by miscellaneous route in the morning. 1 each 1 01/25/2024 Active Start: 08-30-2022 End: 01-25-2024 blood-glucose meter (ONETOUC H VERIO REFLECT METER) misc 1 Device by miscellaneous route in the morning. 1 each 1 08/30/2022 01/25/2024 Discontinued (Reorder) Start: 08-30-2022 blood-glucose meter (ONETOUCH VERIO REFLECT METER) misc 1 Device by miscellaneous route in the morning. 1 each 1 08/30/2022 Suspended Start: 08-30-2022 blood-glucose meter (ONETOUCH VERIO REFLECT METER) misc 1 Device by miscellaneous route in the morning. 1 each 08/30/2022 Active Blood-Glucose Sensor (Dexcom G6 Sensor) Device (2 sources) Start: 01-31-2022 Blood-Glucose Sensor (Dexcom G6 Sensor) Device Active EACH January 31, 2022 12:00am blood-glucose sensor (DEXCOM G7 SENSOR) device (20 sources) Start: 04-14-2024 blood-glucose sensor (DEXCOM G7 SENSOR) device Indications: Type 1 diabetes mellitus with hyperglycemia ([facility]) Change sensor every 10 days 3 each 11 04/14/2024 Active Start: 01-25-2024 End: 04-14-2024 blood-glucose sensor (DEXCOM G7 SENSOR) device Change sensor every 10 days 3 each 01/25/2024 04/14/2024 Discontinued (Reorder) Start: 01-25-2024 blood-glucose sensor (DEXCOM G7 SENSOR) device Change sensor every 10 days 3 each 11 01/25/2024 Active Start: 05-14-2023 End: 01-25-2024 blood-glucose sensor (DEXCOM G7 SENSOR) device Change sensor every 10 days 3 each 11 05/14/2023 01/25/2024 Discontinued (Reorder) Start: 05-14-2023 blood-glucose sensor (DEXCOM G7 SENSOR) device Change sensor every 10 days 3 each 05/14/2023 Active Start: 05-31-2022 blood-glucose sensor (DEXCOM G7 SENSOR) device Change sensor every 10 days 3 each 05/31/2022 Suspended Start: 05-31-2022 blood-glucose sensor (DEXCOM G7 SENSOR) device Change sensor every 10 days 3 each 05/31/2022 Active Blood-Glucose Transmitter (Dexcom G6 Transmitter) Device (2 sources) Start: 01-31-2022 Blood-Glucose Transmitter (Dexcom G6 Transmitter) Device Active EACH January 31, 2022 12:00am drospirenone, contraceptive, 4 mg (28) tablet (18 sources) Start: 01-25-2024 take 1 tablet by mouth in the morning drospirenone, contraceptive, 4 mg (28) tablet Take 4 mg by mouth in the morning. 84 tablet 3 01/25/2024 Active Start: 02-19-2023 End: 01-25-2024 take 1 tablet by mouth in the morning drospirenone, contraceptive, 4 mg (28) tablet Take 4 mg by mouth in the morning. 84 tablet 3 02/19/2023 01/25/2024 Discontinued (Reorder) Start: 02-19-2023 take 1 tablet by rut th in the morning drospirenone, contraceptive, 4 mg (28) tablet Take 4 mg by mouth in the morning. 84 tablet 3 02/19/2023 Active glucagon (rdna) 1 mg injection (19 sources) Antihypoglycemic Agent Start: 08-30-2022 glucagon HCL (GLUCAGON, HCL, EMERGENCY KIT) 1 mg recon soln Inject 1 mg as directed as needed (severe hypoglycemia or seizure). 2 each 1 08/30/2022 Active ibuprofen 800 mg oral tablet (17 sources) Nonsteroidal Anti-inflammatory Drug Start: 02-20-2023 take 1 tablet by mouth every eight hours as needed for pain ibuprofen (MOTRIN) 800 mg tablet Take 1 tablet (800 mg total) by mouth every 8 (eight) hours as needed for pain. 30 tablet 02/20/2023 Active 3 ml insulin glargine 100 unt/ml pen injector (20 sources) Insulin Analog Start: 04-14-2024 insulin glargine (LANTUS SOLOSTAR U-100 INSULIN) 100 unit/mL (3 mL) insulin pen Indications: Type 1 diabetes mellitus with hyperglycemia ([facility]) Use as directed up to 50 units daily when NOT wearing insulin pump 15 mL 11 04/14/2024 Active Start: 09-14-2023 End: 04-14-2024 insulin glargine (LANTUS PATRICIA OSTAR U-100 INSULIN) 100 unit/mL (3 mL) insulin pen Indications: Type 1 diabetes mellitus during in third trimester Use as directed up to 50 units daily when NOT wearing insulin pump 15 mL 11 01/25/2024 04/14/2024 Discontinued (Reorder) Start: 02-20-2023 insulin glargi ne (LANTUS SOLOSTAR U-100 INSULIN) 100 unit/mL (3 mL) insulin pen 9 units s/q am and 0 units s/q bedtime. 2 units to prime. 15 mL 5 02/20/2023 Active Start: 02-20-2023 End: 09-14-2023 insulin glargine (LANTUS PATRICIA OSTAR U-100 INSULIN) 100 unit/mL (3 mL) insulin pen 9 units s/q am and 0 units s/q bedtime. 2 units to prime. 15 mL 02/20/2023 09/14/2023 Discontinued (Reorder) Start: 01-08-2023 insulin glargi ne (LANTUS SOLOSTAR U-100 INSULIN) 100 unit/mL (3 mL) insulin pen 27 units s/q am and 20 units s/q bedtime. 2 units to prime. 15 mL 5 01/08/2023 Suspended inject 35 [IU] by carreon bcutaneous injection at bedtime insulin glargine (Lantus) 100 UNIT/ML injection Inject 35 Units under the skin at bedtime. 0 Active insulin lispro 100 unt/ml injectable solution (20 sources) Insulin Analog Start: 04-14-2024 insulin lispro (HumaLOG U-100 Insulin) 100 unit/mL injection Indications: Type 1 diabetes mellitus with hyperglycemia ([facility]) Use as directed in insulin pump up to 66 units per day. 20 mL 12 04/14/2024 Active Start: 04-14-2024 insulin lispro (HumaLOG) 100 unit/mL insulin pen Indications: Type 1 diabetes mellitus with hyperglycemia ([facility]) Use as directed up to 100 units daily for carb coverage and blood glucose correction when NOT wearing insulin pump 30 mL 12 04/14/2024 Active Start: 05-14-2023 End: 04-14-2024 insulin lispro (HumaLOG U-10 0 Insulin) 100 unit/mL injection Indications: Type 1 diabetes mellitus with hyperglycemia ([facility]) Use as directed in insulin pump up to 66 units per day. 20 mL 12 05/14/2023 04/14/2024 Discontinued (Reorder) Start: 04-12-2023 insulin lispro (HumaLOG U-100 Insulin) 100 unit/mL injection Indications: Type 1 diabetes mellitus with hyperglycemia ([facility]) Use as directed in insulin pump up to 66 units per day. 20 mL 12 04/12/2023 Active Start: 04-05-2023 End: 04-14-2024 insulin lispro (HumaLOG) 100 unit/mL insulin pen Indications: Type 1 diabetes mellitus during in third trimester Use as directed up to 100 units daily for carb coverage and blood glucose correction when NOT wearing insulin pump 30 mL 12 09/14/2023 04/14/2024 Discontinued (Reorder) Start: 04-05-2023 End: 04-05-2023 inject 100 [IU] by subcutaneous injection once daily insulin lispro (HumaLOG) 100 unit/mL insulin pen Subcutaneous as directed up to 100 units daily 30 mL 12 04/05/2023 04/05/2023 Discontinued (Reorder) Start: 02-20-2023 End: 04-14-2024 inject 7 [IU] by subcutaneous injection once daily at lunch insulin lispro (HumaLOG) 100 unit/mL insulin pen Inject 7 Units under the skin daily with lunch. 15 mL 12 02/20/2023 04/14/2024 Discontinued Start: 02-20-2023 End: 04-14-2024 inject 9 [IU] by subcutaneous injection once daily at dinner insulin lispro (HumaLOG) 100 unit/mL insulin pen Inject 9 Units under the skin daily with dinner. 15 mL 12 02/20/2023 04/14/2024 Discontinued Start: 02-20-2023 End: 04-05-2023 inject 6 [IU] [...] insulin lispro (HumaLOG) 100 unit/mL insulin pen (11 sources) Start: 02-20-2023 inject 6 [IU] by subcutaneous injection once daily at breakfast insulin lispro (HumaLOG) 100 unit/mL insulin pen Inject 6 Units under the skin daily with breakfast. 15 mL 12 02/20/2023 Active Start: 02-20-2023 inject 7 [IU] [...] units to prime. 15 mL 12 01/23/2023 Suspended Start: 01-23-2023 inject 2 [IU] by sub cutaneous injection at breakfast insulin lispro (HumaLOG) 100 unit/mL insulin pen Indications: Pre-existing type 1 diabetes mellitus during in second trimester Inject 22 units subcutaneously with breakfast, 26 units subcutaneously with lunch and 32 units subcutaneously at dinnertime. 2 units to prime. 15 mL 01/23/2023 Active isopropyl alcohol 0.7 ml/ml medicated pad (3 sources) Start: 09-14-2023 alcohol swabs pads, medicated Indications: Type 1 diabetes mellitus during in third trimester Use as directed prior to insulin injections 150 each 11 09/14/2023 Active oxyCODONE hydrochloride 5 mg oral tablet [...] day at the same time. 0 Active Completed/Discontinued Medications Medication Drug Class(es) Dates [...] bedtime. 60 capsule 0 02/20/2023 03/20/2023 Discontinued doxylamine succinate 25 mg oral tablet (2 sources) Start: 09-27-2022 take 1 tablet by mouth once daily as needed for sleep doxylamine (UNISOM) 25 mg tablet Take 1 tablet (25 mg total) by mouth nightly as needed for sleep. 30 tablet 12 09/27/2022 Suspended metoclopramide 10 mg oral tablet (2 sources) Dopamine-2 Receptor Antagonist Start: 10-02-2022 metoclopramide (REGLAN) 10 mg tablet Indications: Type 1 diabetes mellitus with hypoglycemia and without coma ([facility]-HCC) Take 1 tablet (10 mg total) by mouth 3 (three) times a day. Three times a day before meals 30 tablet 2 10/02/2022 Suspended PNV 19-IRON PS,[id number] ORAL (6 sources) End: 03-20-2023 take 1 tablet by mouth once daily PNV 19-IRON PS,[id number]-[id number] ORAL Take 1 tablet by mouth Daily at 0700. 0 03/20/2023 Discontinued take 1 tablet by mouth once jenny y PNV 19-IRON PS,[id number] ORAL Take 1 tablet by mouth Daily at 0700. 0 Suspended take 1 tablet by mouth once jenny y PNV 19-IRON PS,[id number]-RUA ORAL Take 1 tablet by mouth Daily at 0700. 0 Active pyridoxine hydrochloride 25 mg oral tablet (2 sources) Start: 09-27-2022 take 1 tablet by mouth in the morning pyridoxine, vitamin B6, (B-6) 25 mg tablet Take 1 tablet (25 mg total) by mouth in the morning. 30 tablet 0 09/27/2022 Suspended Problems Active Problems Problem Classification Problem Date Documented Da te Episodic/Chronic Acquired foot deformities (2 sources) Acquired hallux malleus; Translations: [Other hammer toe(s) (acquired), unspecified foot] Onset: 3 08-03-2022 Chronic Asthma (20 sources) Mild intermittent asthma; Translations: [Mild intermittent asthma, uncomplicated] Onset: 8 10-24-2019 Chronic Coagulation and hemorrhagic disorders (19 sources) Chronic idiopathic thrombocytopenic purpura; Translations: [Immune thrombocytopenic purpura] Onset: 9 Resolved: 9 09-04-2018 Chronic Deficiency and other anemia (19 sources) Hemoglobin C trait; Translations: [Other hemoglobinopathies] Onset: 9 09-04-2018 Chronic Diabetes mellitus with complications (20 sources) Diabetic ketoacidosis; Translations: [Type 2 diabetes mellitus with ketoacidosis without coma] Onset: 0 Resolved: 2 Chronic Diabetes mellitus without complication (20 sources) Type 1 diabetes mellitus; Translations: [Type 1 diabetes mellitus without complications] Onset: 0 Resolved: 3 Chronic Diabetes mellitus without complication (20 sources) Abnormal glucose level; Translations: [Other abnormal glucose] Onset: 2 Resolved: 3 11-14-2022 Episodic Diabetes or abnormal glucose tolerance complicating ; childbirth; or the puerperium (20 sources) and type 1 diabetes mellitus; Translations: [Pre-existing type 1 diabetes mellitus, in , third trimester] Onset: 8 Resolved: 4 01-25-2024 Chronic Disorders of teeth and jaw (4 sources) Infection of tooth; Translations: [Periapical abscess without sinus] Episodic Fever of unknown origin (1 source) Fever Onset: 5 Episodic Other aftercare (2 sources) Surgical follow-up; Translations: [Encounter for follow-up examination after completed treatment for conditions other than malignant neoplasm] 03-19-2023 Episodic Other complications of (1 source) Obesity complicating , unspecified trimester; Translations: [Obesity complicating , unspecified trimester] Onset: 3 Chronic Other endocrine disorders (17 sources) Hypoglycemia; Translations: [Hypoglycemia, unspecified] Onset: 3 11-16-2022 Chronic Other gastrointestinal disorders (19 sources) Malabsorption - iron; Translations: [Intestinal malabsorption, unspecified] Onset: 1 04-08-2020 Chronic Other and delivery including normal (3 sources) care status; Translations: [Encounter for routine follow-up] 03-19-2023 Episodic Other screening for suspected conditions (not mental disorders or infectious disease) (4 sources) Encounter for screening for malignant neoplasm of cervix; Translations: [ENC SCREENING MALIG NEOPLASM CERV] Onset: 2 Episodic Unclassified (1 source) Pump Training Onset: 4 Unclassified (1 source) Scheduled Onset: 4 Unclassified (1 source) Type 1 DM Onset: 3 Unclassified (1 source) RT SIDE PAIN, FEVER Onset: 5 Viral infection (20 sources) Disease due to Rhinovirus; Translations: [Other viral infections of unspecified site] Onset: 8 Resolved: 9 09-03-2018 Episodic Past or Other Problems Problem Classification Problem Date Documented Date Episodic/Chronic Acute bronchitis (19 sources) Acute bronchitis; Translations: [Acute bronchitis, unspecified] Onset: 02-10-2021 02-10-2021 Episodic Deficiency and other anemia (2 sources) Anemia; Translations: [Anemia, unspecified] Onset: 08-03-2022 08-03-2022 Episodic Deficiency and other anemia (19 sources) Iron deficiency anemia; Translations: [Iron deficiency anemia, unspecified] Onset: 04-08-2020 Resolved: 09-14-2023 09-14-2023 Episodic Mood disorders (19 sources) Mood disorders Onset: 08-02-2023 Resolved: 01-25-2024 01-25-2024 Nausea and vomiting (19 sources) Nausea and vomiting; Translations: [Nausea with vomiting, unspecified] Onset: 02-10-2021 02-10-2021 Episodic Other complications of ; puerperium affecting management of mother (17 sources) Delivery by elective section; Translations: [Encounter for delivery without indication] Onset: 02-16-2023 02-16-2023 Episodic Other complications of ; puerperium affecting management of mother (19 sources) Suspected disorder; Translations: [Maternal care for other (suspected) abnormality and damage, not applicable or unspecified] Onset: 08-21-2018 Resolved: 10-10-2019 10-10-2019 Episodic Other complications of ; puerperium affecting management of mother (1 source) Encounter for delivery without indication; Translations: [Encounter for delivery without indication] Onset: 02-16-2023 Episodic Other complications of (19 sources) Maternal obesity complicating , childbirth and the puerperium, antepartum; Translations: [Obesity complicating , third trimester] Onset: 03-11-2018 Resolved: 04-28-2020 04-28-2020 Chronic Other complications of (19 sources) Anemia of ; Translations: [Anemia complicating , third trimester] Onset: 04-07-2020 Resolved: 04-28-2020 04-24-2022 Chronic Other complications of (20 sources) High risk ; Translations: [Supervision of high risk , unspecified, third trimester] Onset: 09-04-2018 Resolved: 06-02-2020 10-10-2019 Episodic Other complications of (2 sources) Vomiting of , unspecified; Translations: [Unspecified vomiting of , antepartum condition or complication] Onset: 10-10-2019 Resolved: 04-28-2020 04-28-2020 Episodic Other complications of (19 sources) pericardial effusion; Translations: [Maternal care for other specified problems, unspecified trimester, not applicable or unspecified] Onset: 01-06-2020 Resolved: 04-28-2020 04-28-2020 Episodic Other complications of (19 sources) Reduced movement; Translations: [Decreased movements, unspecified trimester, not applicable or unspecified] Onset: 04-16-2020 Resolved: 04-28-2020 04-28-2020 Episodic Other complications of (19 sources) Abnormal findings on screening of mother; [...] obstetric history, third trimester] Onset: 02-01-2023 Episodic Other complications of (2 sources) H/O: stillbirth; Translations: [Supervision of with other poor reproductive or obstetric history, third trimester] 02-01-2023 Episodic Other complications of (17 sources) Hyperemesis gravidarum; Translations: [Vomiting of , unspecified] Onset: 10-10-2019 Resolved: 04-28-2020 04-28-2020 Episodic Other nervous system disorders (1 source) Other acute postprocedural pain; Translations: [Other acute postprocedural pain] Onset: 02-16-2023 Episodic Previous (1 source) Maternal care for unspecified type scar from previous delivery; Translations: [Maternal care for unspecified type scar from previous delivery] Onset: 02-01-2023 Episodic Residual codes; unclassified (19 sources) Gestation period, 12 weeks; Translations: [12 weeks gestation of ] Onset: 08-30-2022 08-30-2022 Episodic Residual codes; unclassified (1 source) 33 weeks gestation of ; Translations: [33 weeks gestation of ] Onset: 02-01-2023 Episodic Residual codes; unclassified (1 source) Gestation period, 33 weeks; Translations: [33 weeks gestation of ] 02-01-2023 Episodic Unclassified (19 sources) Onset: 12-29-2019 12-29-2019 Results Test Name Value Interpretation Reference Range Facil ity ACETONE,(BETAHYDROXYBUTYRATE , KETONE) QUANTITATIVE SERUMon 08-27-2024 BETAHYDROXYBUTYRATE 0.05 mmol/L Normal 0.02-0.27 [facility] Comment on above: Performed By: #### K ETB #### [facility] ([address] [address] VIR BEDSIDE GLUCOSEon 08-27-2024 Glucose [Mass/Vol] 452 mg/dL Critically high [address] [place] [address] Comment on above: Performed By: #### B EDG #### [facility] ([address] [address] VIR BEDSIDE GLUCOSE BEDG >^500 Critically high [address] [place] [address] Comment on above: Performed By: #### B EDG #### [facility] ([address] [address] VIR CBC WITH AUTO DIFFERENTIALon 08-27-2024 BASOPHILS ABSOLUTE COUNT (10*3/UL) BY AUTOMATED COUNT 0.0 10*3/uL Normal 0.0-0.[address] [facility] Comment on above: Performed By: #### C BCA #### [facility] ([address] [address] VIR BASOPHILS RELATIVE PERCENT BY AUTOMATED COUNT 0.3 % Normal [facility] Comment on above: Performed By: #### C BCA #### [facility] ([address] [address] VIR CELLAVISION DIFFERENTIAL TYPE AUTOMATED DIFFERENTIAL Normal [facility] Comment on above: Performed By: #### C BCA #### [facility] ([address] [place] [address] VIR Eosinophils (Bld) [#/Vol] 0.0 10*3/uL Normal 0.0-0.[address] [facility] Comment on above: Performed By: #### C BCA #### [facility] ([address] [place] [address] VIR EOSINOPHILS RELATIVE PERCENT BY AUTOMATED COUNT 0.4 % Normal [facility] Comment on above: Performed By: #### C BCA #### [facility] ([address] [place] [address] VIR Erythrocyte distribution width (RBC) [Ratio] 14.2 % Normal 11.5-[address] [facility] Comment on above: Performed By: #### C BCA #### [facility] ([address] [place] [address] VIR Hematocrit (Bld) [Volume fraction] 35.8 % Normal 35-[address] [facility] Comment on above: Performed By: #### C BCA #### [facility] ([address] [place] [address] VIR Hemoglobin (Bld) [Mass/Vol] 12.4 g/dL Normal 11.7-15.[address] [facility] Comment on above: Performed By: #### C BCA #### [facility] ([address] [place] [address] VIR LYMPHOCYTES ABSOLUTE COUNT (10*3/UL) BY AUTOMATED COUNT 1.2 10*3/uL Normal 1.0-3.[address] [facility] Comment on above: Performed By: #### C BCA #### [facility] ([address] [place] [address] VIR LYMPHOCYTES RELATIVE PERCENT BY AUTOMATED COUNT 13.9 % Normal [facility] Comment on above: Performed By: #### C BCA #### [facility] ([address] [place] [address] VIR MCH (RBC) [Entitic mass] 28.0 pg Normal 27-[address] [facility] Comment on above: Performed By: #### C BCA #### [facility] ([address] [place] [address] VIR MCHC (RBC) [Mass/Vol] 34.6 g/dL Normal 32-36 [facility] Comment on above: Performed By: #### C BCA #### [facility] ([address] [place] [address] VIR MCV (RBC) [Entitic vol] 81 fL Normal 80-[address] [facility] Comment on above: Performed By: #### C BCA #### [facility] ([address] [address] VIR MONOCYTES ABSOLUTE COUNT (10*3/UL) BY AUTOMATED COUNT 0.4 10*3/uL Normal 0.0-0.[address] [facility] Comment on above: Performed By: #### C BCA #### [facility] ([address] [address] VIR MONOCYTES RELATIVE PERCENT BY AUTOMATED COUNT 4.3 % Normal [facility] Comment on above: Performed By: #### C BCA #### [facility] ([address] [place] [address] VIR NEUTROPHILS ABSOLUTE COUNT BY AUTOMATED COUNT 7.2 10*3/uL High 1.5-6.[address] [facility] Comment on above: Performed By: #### C BCA #### [facility] ([address] [address] VIR NEUTROPHILS RELATIVE PERCENT BY AUTOMATED COUNT 81.1 % Normal [facility] Comment on above: Performed By: #### C BCA #### [facility] ([address] [place] [address] VIR Platelet mean volume (Bld) [Entitic vol] 9.8 fL Normal 7-[address] [facility] Comment on above: Performed By: #### C BCA #### [facility] ([place] [address] [place] [address] VIR Platelets (Bld) [#/Vol] 237 10*3/uL Normal 150-[address] [facility] Comment on above: Performed By: #### C BCA #### [facility] ([address] [place] [address] VIR RBC COUNT 4.42 X10E12/L Normal 3.8-5.[address] [facility] Comment on above: Performed By: #### C BCA #### [facility] ([address] [place] [address] VIR WBC (Bld) [#/Vol] 8.9 10*3/uL Normal 4-11 [facility] Comment on above: Performed By: #### C BCA #### [facility] ([address] [place] [address] VIR COMPREHENSIVE METABOLIC PANE Geoffrey 08-27-2024 Albumin [Mass/Vol] 3.3 g/dL Normal 3.2-5.3 [facility] Comment on above: Performed By: #### C MP #### [facility] ([address] [place] [address] VIR ALP [Catalytic activity/Vol] 101 U/L Normal 39-[address] [facility] Comment on above: Performed By: #### C MP #### [facility] ([place] [address] [place] [address] VIR ALT [Catalytic activity/Vol] 10 U/L Normal <=[address] [facility] Comment on above: Performed By: #### C MP #### [facility] ([place] [address] [place] [address] VIR Anion gap [Moles/Vol] 11 mmol/L Normal 5-15 [facility] Comment on above: Performed By: #### C MP #### [facility] ([address] [place] [address] VIR AST [Catalytic activity/Vol] 21 U/L Normal <=[address] [facility] Comment on above: Performed By: #### C MP #### [facility] ([address] [place] [address] VIR Bilirubin [Mass/Vol] 0.5 mg/dL Normal 0.3-1.2 [facility] Comment on above: Performed By: #### C MP #### [facility] ([address] [place] [address] VIR Calcium [Mass/Vol] 8.6 mg/dL Normal 8.5-10.5 [facility] Comment on above: Performed By: #### C MP #### [facility] ([address] [place] [address] VIR Chloride [Moles/Vol] 99 mmol/L Normal 98-109 [facility] Comment on above: Performed By: #### C MP #### [facility] ([address] [place] [address] VIR CO2 [Moles/Vol] 22 mmol/L Normal 22-[address] [facility] Comment on above: Performed By: #### C MP #### [facility] ([address] [place] [address] VIR Creatinine [Mass/Vol] 0.90 mg/dL Normal 0.40-1.00 [facility] Comment on above: Result Comment: METH OD TRACEABLE TO IDMS STANDARD Performed By: #### C MP #### [facility] ([address] [place] [address] VIR EGFR (CKD-EPI) NON-RACE DEPENDENT >^90 Normal >=[address] [facility] Comment on above: Result Comment: eGFR not reported due to non-numeric value for Creatinine. Reported eGFR is based on the CKD-EPI 2020 equation that does not use a race coefficient. Performed By: #### C MP #### [facility] ([place] [address] [place] [address] VIR Glucose [Mass/Vol] 643 mg/dL Critically high 65-99 [facility] Comment on above: Performed By: #### C MP #### [facility] ([address] [place] [address] VIR Potassium [Moles/Vol] 3.8 mmol/L Normal 3.5-5.0 [facility] Comment on above: Performed By: #### C MP #### [facility] ([address] [place] [address] VIR Protein [Mass/Vol] 7.1 g/dL Normal 6.0-8.0 [facility] Comment on above: Performed By: #### C MP #### [facility] ([address] [place] [address] VIR Sodium [Moles/Vol] 132 mmol/L Low 134-146 [facility] Comment on above: Performed By: #### C MP #### [facility] ([address] [place] [address] VIR Urea nitrogen [Mass/Vol] 11 mg/dL Normal 5-[address] [facility] Comment on above: Performed By: #### C MP #### [facility] ([address] [place] [address] VIR POCT NURSING URINE MACROSCOP IC UAon 08-27-2024 BILIRUBIN MELISSA Negative Normal Negative [facility] Comment on above: Performed By: #### N UM #### [facility] ([address] [place] [address] VIR BLOOD/HGB MELISSA Trace Abnormal Negative [facility] Comment on above: Performed By: #### N UM #### [facility] ([place] [address] [place] [address] VIR GLUCOSE MELISSA >=1000 mg/dL Abnormal Negative [facility] Comment on above: Performed By: #### N UM #### [facility] ([place] [address] [place] [address] VIR KETONES MELISSA Negative Normal Negative [facility] Comment on above: Performed By: #### N UM #### [facility] ([address] [place] [address] VIR LEUKOCYTE ESTERASE MELISSA Negative Normal Negative [facility] Comment on above: Performed By: #### N UM #### [address] [place] [address] VIR NITRITE MELISSA Negative Normal Negative [facility] Comment on above: Performed By: #### N UM #### [facility] ([address] [place] [address] VIR PH MELISSA 5.5 Normal 5.0, 6.0, 6.5, 7.0, 7.5, 8.0, 8.5, 5.[address] [facility] Comment on above: Performed By: #### N UM #### [facility] ([address] [place] [address] VIR PROTEIN MELISSA Negative Normal Negative [facility] Comment on above: Performed By: #### N UM #### [facility] ([address] [place] [address] VIR SPECIFIC GRAVITY MELISSA 1.010 Normal 1.010, 1.015, 1.020, 1.[address] [facility] Comment on above: Performed By: #### N UM #### [facility] ([address] [place] [address] VIR UROBILINOGEN MELISSA 0.2 E.U./dL Normal [facility] Comment on above: Performed By: #### N UM #### [facility] ([facility] [address] [place] [address] VIR POCT , URINE (NUCG) on 08-27-2024 Beta HCG ( test) Ql (U) Negative Normal Negative, Indeterminate [facility] Comment on above: Performed By: #### N UCG #### [facility] ([facility]) [address] [place] [address] [place] [address] VIR POCT Hemoglobin A1con 2023 HbA1c (Bld) [Mass fraction] 12.1 % Abnormal 4 - 7 % [facility] Interpretation and review of laboratory results Abnormal [facility] POCT Hemoglobin A1con 2023 HbA1c (Bld) [Mass fraction] 12.7 g/dL Abnormal 4 - 7 g/dL [facility] Interpretation and review of laboratory results Abnormal [facility] POCT Hemoglobin A1con 2023 HbA1c (Bld) [Mass fraction] 6.8 g/dL 4 - 7 g/dL [facility] Glucose Glucometer (dC) [M ass/Vol]on 02-20-2023 Glucose [Mass/Vol] 162 mg/dL High 65- [facility] Glucose [Mass/Vol] 133 mg/dL High - [facility] Glucose Glucometer (BldC) [M ass/Vol]on 02-19-2023 Glucose [Mass/Vol] 141 mg/dL High - [facility] Glucose [Mass/Vol] 164 mg/dL High 65- [facility] Glucose [Mass/Vol] 136 mg/dL High 65- [facility] Glucose [Mass/Vol] 131 mg/dL High - [facility] Glucose [Mass/Vol] 186 mg/dL High - [facility] Glucose [Mass/Vol] 265 mg/dL High 65- [facility] Glucose Glucometer (BldC) [M ass/Vol]on 02-18-2023 Glucose [Mass/Vol] 93 mg/dL Normal 65-99 [facility] Glucose [Mass/Vol] 88 mg/dL Normal 65-99 [facility] Glucose [Mass/Vol] 133 mg/dL High 65-99 [facility] Glucose [Mass/Vol] 76 mg/dL Normal 65-99 [facility] Glucose [Mass/Vol] 49 mg/dL Critically low 65-99 [facility] Glucose [Mass/Vol] 48 mg/dL Critically low 65-99 [facility] CBC AND AUTO DIFFon 02-17-19 24 ABSOLUTE BASOPHIL 0.2 X10E9/L Normal 0.0-0.2 [facility] Comment on above: Performed By: #### C BCA ####[facility] ([id number])[address], [address], [place] [address] ABSOLUTE NEUTROPHIL 13.3 X10E9/L High 1.5-6.6 [facility] Comment on above: Performed By: #### C BCA ####[facility] ([id number])[address], [address] [place] [address] Basophils/100 WBC (Bld) 1.0 % Normal [facility] Comment on above: Performed By: #### C BCA ####[facility] ([id number])[address], [address], [place] [address] Eosinophils (Bld) [#/Vol] 0.1 10*3/uL Normal 0.0-0.4 [facility] Comment on above: Performed By: #### C BCA ####[facility] ([id number])[address], [address] [place] [address] Eosinophils/100 WBC (Bld) 0.4 % Normal [facility] Comment on above: Performed By: #### C BCA ####[facility] ([id number])[address], [address], [place] [address] Erythrocyte distribution width (RBC) [Ratio] 13.4 % Normal 11.5-15.0 [facility] Comment on above: Performed By: #### C BCA ####[facility] ([id number])[address], [address], [place] [address] Hematocrit (Bld) [Volume fraction] 29.1 % Low 35-47 [facility] Comment on above: Performed By: #### C BCA ####[facility] ([id number])[address], [address], [place] [address] Hemoglobin (Bld) [Mass/Vol] 10.1 g/dL Low 11.7-15.5 [facility] Comment on above: Performed By: #### C BCA ####[facility] ([id number])[address], [address], [place] [address] Lymphocytes (Bld) [#/Vol] 2.0 10*3/uL Normal 1.0-3.5 [facility] Comment on above: Performed By: #### C BCA ####[facility] ([id number])[address], [address], [place] [address] Lymphocytes/100 WBC (Bld) 12.4 % Normal [facility] Comment on above: Performed By: #### C BCA ####[facility] ([id number])[address], [address], [place] [address] MCH (RBC) [Entitic mass] 27.6 pg Normal 27-34 [facility] Comment on above: Performed By: #### C BCA ####[facility] ([id number])[address], [address], [place] [address] MCHC (RBC) [Mass/Vol] 34.8 g/dL Normal 32-36 [facility] Comment on above: Performed By: #### C BCA ####[facility] ([id number])[address], [place] [address] MCV (RBC) [Entitic vol] 79 fL Low 80-100 [facility] Comment on above: Performed By: #### C BCA ####[facility] ([id number])[address], [address], [place] [address] Monocytes (Bld) [#/Vol] 0.9 10*3/uL Normal 0-0.9 [facility] Comment on above: Performed By: #### C BCA ####[facility] ([id number])[address], [address], [place] [address] Monocytes/100 WBC (Bld) 5.6 % Normal [facility] Comment on above: Performed By: #### C BCA ####[facility] ([id number])[address], [address], [place] [address] Neutrophils/100 WBC (Bld) 80.6 % Normal [facility] Comment on above: Performed By: #### C BCA ####[facility] ([id number])[address], [address], [place] [address] Platelet mean volume (Bld) [Entitic vol] 9.5 fL Normal 7-12 [facility] Comment on above: Performed By: #### C BCA ####[facility] ([id number])[address], [address], [place] [address] Platelets (Bld) [#/Vol] 224 10*3/uL Normal 150-450 [facility] Comment on above: Performed By: #### C BCA ####[facility] ([id number])[address], [address], [place] [address] RBC COUNT 3.67 X10E12/L Low 3.80-5.20 [facility] Comment on above: Performed By: #### C BCA ####[facility] ([id number])[address], [address] [place] [address] WBC (Bld) [#/Vol] 16.5 10*3/uL High 4.0-11.0 [facility] Comment on above: Performed By: #### C BCA ####[facility] ([id number])[address] [address] Glucose Glucometer (BldC) [M ass/Vol]on 02-17-2023 Glucose [Mass/Vol] 201 mg/dL High 65-99 [facility] Glucose [Mass/Vol] 147 mg/dL High 65-99 [facility] Glucose [Mass/Vol] 166 mg/dL High 65-99 [facility] Glucose [Mass/Vol] 115 mg/dL High 65-99 [facility] Glucose [Mass/Vol] 158 mg/dL High 65-99 [facility] CHLAMYDIA/GC PCR, Uon 2023 CHLAMYDIA/GC PCR, [...] are dependent on adequate specimen collection. Normal [facility] Comment on above: Performed By: #### C ####[facility] ([id number])[address] [address] [place] [address] COMPLETE BLOOD COUNTon 02-16 Erythrocyte distribution width (RBC) [Ratio] 13.7 % Normal 11.5-15.0 [facility] Comment on above: Performed By: #### C BC, 81889-6 ####[facility] ([id number])[address], [place] [address] Hematocrit (Bld) [Volume fraction] 33.5 % Low 35-47 [facility] Comment on above: Performed By: #### Makenzie PARADA, 70635-1 ####[facility] ([id number])[address], [address], [place] [address] Hemoglobin (Bld) [Mass/Vol] 11.9 g/dL Normal 11.7-15.5 [facility] Comment on above: Performed By: #### Makenzie PARADA, 72163-3 ####[facility] ([id number])[address] [place] [address] MCH (RBC) [Entitic mass] 27.4 pg Normal 27-34 [facility] Comment on above: Performed By: #### Makenzie PARADA, 83291-7 ####[facility] ([id number])[address] [address], [place] [address] MCHC (RBC) [Mass/Vol] 35.5 g/dL Normal 32-36 [facility] Comment on above: Performed By: #### Makenzie PARADA, 73173-6 ####[facility] ([id number])[address] [address], [place] [address] MCV (RBC) [Entitic vol] 77 fL Low 80-100 [facility] Comment on above: Performed By: #### Makenzie PAARDA, 94939-1 ####[facility] ([id number])[address] [address], [place] [address] Platelet mean volume (Bld) [Entitic vol] 9.4 fL Normal 7-12 [facility] Comment on above: Performed By: #### Makenzie PARADA, 70203-2 ####[facility] ([id number])[address] [address], [place] [address] Platelets (Bld) [#/Vol] 237 10*3/uL Normal 150-450 [facility] Comment on above: Performed By: #### C , 05741-6 ####[facility] ([id number])[address], [address] [place] [address] RBC COUNT 4.35 X10E12/L Normal 3.80-5.20 [facility] Comment on above: Performed By: #### C , 35603-2 ####[facility] ([id number])[address] [address] WBC (Bld) [#/Vol] 18.3 10*3/uL High 4.0-11.0 [facility] Comment on above: Performed By: #### Makenzie , 67459-8 ####[facility] ([id number])[address], [address] [address] DRUG SCREEN, URINEon 024 AMPHETAMINE/METHAMP Negative Normal NEG [facility] Comment on above: Result Comment: AMPH /METH screening cut off = 1000 ng/mL Performed By: #### D CARREON ####[facility] ([id number])[address] [address] BARBITURATES Negative Normal NEG [facility] Comment on above: Result Comment: Lorena iturates screening cut off value = 200 ng/mL Performed By: #### D CARREON ####[facility] ([id number])[address] [address] BENZODIAZEPINES Negative Normal NEG [facility] Comment on above: Result Comment: See odiazepines screening cut off value = 200 ng/mL Performed By: #### D CARREON ####[facility] ([id number])[address] [address] CANNABINOIDS Negative Normal NEG [facility] Comment on above: Result Comment: Sandra abinoids/THC screening cut off value = 50 ng/mL Performed By: #### D CARREON ####[facility] ([id number])[address], [place] [address] COCAINE METABOLITE Negative Normal NEG [facility] Comment on above: Result Comment: Coca ine screening cut off value = 300 ng/mL Performed By: #### D CARREON ####[facility] ([id number])[address], [place] [address] ECSTASY Negative Normal NEG [facility] Comment on above: Result Comment: Ecst asy screening cut off value = 500 ng/mL This report is intended for use in clinical monitoring or management of patients. Performed By: #### D CARREON ####[facility] ([id number])[address], [place] [address] [facility] Comment on above: Result Comment: Meth adone screening cut off value = 300 ng/mL. Performed By: #### D CARREON ####[facility] ([id number])[address], [place] [address] [facility] Comment on above: Result Comment: Opia shelly screening cut off value = 300 ng/mL NOTE: This test is used for the detection of codeine, hydrocodone (>1000 ng/mL), morphine and hydromorphone (>900 ng/mL) in urine. Performed By: #### D CARREON ####[facility] ([id number])[address], [place] [address] OXYCODONE Negative Normal NEG [facility] Comment on above: Result Comment: Oxyc odone screening cut off value = 300 ng/mL NOTE: This test is used for the detection of oxycodone and oxymorphone in urine. Performed By: #### D CARREON ####[facility] ([id number])[address], [place] [address] [facility] Comment on above: Result Comment: Phen cyclidine screening cut off value = 25 ng/mL Performed By: #### D CARREON ####[facility] ([id number])[address] [facility] [address] [place] [address] Glucose Glucometer (BldC) [M ass/Vol]on 02-16-2023 Glucose [Mass/Vol] 221 mg/dL High 65-99 [facility] T. pallidum IgG+IgM IA Ql (S )on 02-16-2023 Syphilis Total 0.2 AI Normal 0.0-0.8 [facility] Comment on above: Result Comment: NON REACTIVE No serologic evidence of infection to Treponema pallidum (syphilis). Repeat testing may be considered in patients with suspected acute or primary syphilis in 2 to 4 weeks. Performed By: #### C BC, 75351-6 ####[facility] ([id number])[address] [facility], [address] [place] [address] Glucose Glucometer (BldC) [M ass/Vol]on 02-10-2023 Glucose [Mass/Vol] 89 mg/dL Normal 65-99 [facility] Glucose [Mass/Vol] 107 mg/dL High 65-99 [facility] Glucose [Mass/Vol] 70 mg/dL Normal 65-99 [facility] Glucose [Mass/Vol] 85 mg/dL Normal 65-99 [facility] Glucose [Mass/Vol] 59 mg/dL Low 65-99 [facility] Glucose [Mass/Vol] 42 mg/dL Critically low 65-99 [facility] Glucose Glucometer (BldC) [M ass/Vol]on 02-09-2023 Glucose [Mass/Vol] 131 mg/dL High 65-99 [facility] Glucose [Mass/Vol] 206 mg/dL High 65-99 [facility] Glucose [Mass/Vol] 117 mg/dL High 65-99 [facility] Glucose [Mass/Vol] 113 mg/dL High 65-99 [facility] Glucose Glucometer (BldC) [M ass/Vol]on 02-08-2023 Glucose [Mass/Vol] 134 mg/dL High 65-99 [facility] Glucose [Mass/Vol] 162 mg/dL High 65-99 [facility] Glucose [Mass/Vol] 152 mg/dL High 65-99 [facility] Glucose [Mass/Vol] 73 mg/dL Normal 65-99 [facility] Glucose Glucometer (BldC) [M ass/Vol]on 02-07-2023 Glucose [Mass/Vol] 156 mg/dL High 65-99 [facility] Glucose [Mass/Vol] 118 mg/dL High 65-99 [facility] Glucose [Mass/Vol] 145 mg/dL High 65-99 [facility] Glucose [Mass/Vol] 119 mg/dL High 65-99 [facility] Glucose [Mass/Vol] 54 mg/dL Low 65-99 [facility] Glucose [Mass/Vol] 50 mg/dL Critically low 65-99 [facility] STREP B SCREEN CULTUREon S. agalactiae Org specific cx Ql (Vag+Rectum) CULTURE RESULTS NEGATIVE FOR GROUP B STREPTOCOCCUS BY NUCLEIC ACID AMPLIFICATION Normal [facility] Comment on above: Performed By: #### C MP, CBCA, 6873-4 #### [facility] ([id number]) [address] [place] [address] Glucose Glucometer (BldC) [M ass/Vol]on 02-06-2023 Glucose [Mass/Vol] 86 mg/dL Normal 65-99 [facility] Glucose [Mass/Vol] 116 mg/dL High 65-99 [facility] Glucose [Mass/Vol] 137 mg/dL High 65-99 [facility] Glucose [Mass/Vol] 220 mg/dL High 65-99 [facility] Glucose [Mass/Vol] 94 mg/dL Normal 65-99 [facility] Glucose [Mass/Vol] 47 mg/dL Critically low 65-99 [facility] Glucose [Mass/Vol] 39 mg/dL Critically low 65-99 [facility] Glucose Glucometer (BldC) [M ass/Vol]on 02-05-2023 Glucose [Mass/Vol] 155 mg/dL High 65-99 [facility] Glucose [Mass/Vol] 103 mg/dL High 65-99 [facility] Glucose [Mass/Vol] 84 mg/dL Normal 65-99 [facility] Glucose [Mass/Vol] 92 mg/dL Normal 65-99 [facility] Glucose [Mass/Vol] 61 mg/dL Low 65-99 [facility] Glucose [Mass/Vol] 50 mg/dL Critically low 65- [facility] Glucose Glucometer (BldC) [M ass/Vol]on 02-04-2023 Glucose [Mass/Vol] 103 mg/dL High 65-99 [facility] Glucose [Mass/Vol] 125 mg/dL High 65- [facility] [facility] Glucose [Mass/Vol] 112 mg/dL High 65- [facility] Glucose [Mass/Vol] 91 mg/dL Normal 65- [facility] Glucose Glucometer (BldC) [M ass/Vol]on 02-03-2023 Glucose [Mass/Vol] 71 mg/dL Normal 65-99 [facility] Glucose [Mass/Vol] 159 mg/dL High 65- [facility] Glucose [Mass/Vol] 115 mg/dL High 65- [facility] Glucose [Mass/Vol] 105 mg/dL High 65-99 [facility] Glucose Glucometer (BldC) [M ass/Vol]on 02-02-2023 Glucose [Mass/Vol] 140 mg/dL High 65-99 [facility] Glucose [Mass/Vol] 125 mg/dL High 65-99 [facility] Glucose [Mass/Vol] 135 mg/dL High 65-99 [facility] Glucose [Mass/Vol] 107 mg/dL High 65-99 [facility] Glucose [Mass/Vol] 145 mg/dL High 65- [facility] POTASSIUMon 02-02-2023 Potassium [Moles/Vol] 4.0 mmol/L Normal 3.5-5.0 [facility] Comment on above: Performed By: #### 2 823-3 ####[facility] ([id number])[address], [place] [address] Potassium [Moles/Vol] 3.6 mmol/L Normal 3.5-5.0 [facility] Comment on above: Performed By: #### 2 823-3 #### [facility] ([id number]) [address], [address] [place] [address] Beta hydroxybutyrate [Moles/ Vol]on 02-01-2023 BetaHydroxybutyrate 0.80 mmol/L High 0.02-0.27 [facility] Comment on above: Performed By: #### C SD, CBCA, 6873-4 #### [facility] ([id number]) [address], [address] [place] [address] CBC AND AUTO DIFFon 02-02-20 ABSOLUTE BASOPHIL 0.0 X10E9/L Normal 0.0-0.2 [facility] Comment on above: Performed By: #### C MP, CBCA, 6873-4 #### [facility] ([id number]) [address], [address] [place] [address] ABSOLUTE NEUTROPHIL 11.4 X10E9/L High 1.5-6.6 [facility] Comment on above: Performed By: #### C MP, CBCA, 6873-4 #### [facility] ([id number]) [address], [address] [place] [address] Basophils/100 WBC (Bld) 0.2 % Normal [facility] Comment on above: Performed By: #### C MP, CBCA, 6873-4 #### [facility] ([id number]) [address], [address] [place] [address] Eosinophils (Bld) [#/Vol] 0.1 10*3/uL Normal 0.0-0.4 [facility] Comment on above: Performed By: #### C SD, CBCA, 6873-4 #### [facility] ([id number]) [address] [address] [place] [address] Eosinophils/100 WBC (Bld) 0.4 % Normal [facility] Comment on above: Performed By: #### C SD, CBCA, 73-4 #### [facility] ([id number]) [address] [address] [place] [address] Erythrocyte distribution width (RBC) [Ratio] 13.5 % Normal 11.5-15.0 [facility] Comment on above: Performed By: #### C SD, CBCA, 6873-4 #### [facility] ([id number]) [address] [address] [place] [address] Hematocrit (Bld) [Volume fraction] 33.0 % Low 35-47 [facility] Comment on above: Performed By: #### C SD, CBCA, 6873-4 #### [facility] ([id number]) [address] [address] [place] [address] Hemoglobin (Bld) [Mass/Vol] 11.5 g/dL Low 11.7-15.5 [facility] Comment on above: Performed By: #### C SD, CBCA, 6873-4 #### [facility] ([id number]) [address] [address] [place] [address] Lymphocytes (Bld) [#/Vol] 1.2 10*3/uL Normal 1.0-3.5 [facility] Comment on above: Performed By: #### C SD, CBCA, 6873-4 #### [facility] ([id number]) [address], [facility] [address] [place] [address] Lymphocytes/100 WBC (Bld) 8.7 % Normal [facility] Comment on above: Performed By: #### C SD, CBCA, 6873-4 #### [facility] ([id number]) [address], [address] [place] [address] MCH (RBC) [Entitic mass] 27.6 pg Normal 27-34 [facility] Comment on above: Performed By: #### C SD, CBCA, 6873-4 #### [facility] ([id number]) [address], [address] [place] [address] MCHC (RBC) [Mass/Vol] 34.8 g/dL Normal 32-36 [facility] Comment on above: Performed By: #### C SD, CBCA, 6873-4 #### [facility] ([id number]) [address], [address] [place] [address] MCV (RBC) [Entitic vol] 79 fL Low 80-100 [facility] Comment on above: Performed By: #### C SD, CBCA, 6873-4 #### [facility] ([id number]) [address], [address] [place] [address] Monocytes (Bld) [#/Vol] 0.6 10*3/uL Normal 0-0.9 [facility] Comment on above: Performed By: #### C SD, CBCA, 6873-4 #### [facility] ([id number]) [address] [place] [address] Monocytes/100 WBC (Bld) 4.5 % Normal [facility] Comment on above: Performed By: #### C SD, CBCA, 6873-4 #### [facility] ([id number]) [address], [address] [place] [address] Neutrophils/100 WBC (Bld) 86.2 % Normal [facility] Comment on above: Performed By: #### C SD, CBCA, 6873-4 #### [facility] ([id number]) [address], [facility] [address] [place] [address] Platelet mean volume (Bld) [Entitic vol] 9.4 fL Normal 7-12 [facility] Comment on above: Performed By: #### C MP, CBCA, 6873-4 #### [facility] ([id number]) [address], [address] [address] Platelets (Bld) [#/Vol] 211 10*3/uL Normal 150-450 [facility] Comment on above: Performed By: #### C SD, CBCA, 6873-4 #### [facility] ([id number]) [address], [facility] [address] [place] [address] RBC COUNT 4.16 X10E12/L Normal 3.80-5.20 [facility] Comment on above: Performed By: #### C SD, CBCA, 6873-4 #### [facility] ([id number]) [address] [address] WBC (Bld) [#/Vol] 13.2 10*3/uL High 4.0-11.0 [facility] Comment on above: Performed By: #### C SD, CBCA, 6873-4 #### [facility] ([id number]) [address], [address] [place] [address] COMPREHENSIVE METABOLIC PANE Geoffrey 02-01-2023 Albumin [Mass/Vol] 3.3 g/dL Normal 3.2-5.3 [facility] Comment on above: Performed By: #### C MP, CBCA, 6873-4 #### [facility] ([id number]) [address], [address] [place] [address] ALP [Catalytic activity/Vol] 127 U/L Normal 39-130 [facility] Comment on above: Performed By: #### C MP, CBCA, 6873-4 #### [facility] ([id number]) [address], [address] [place] [address] ALT [Catalytic activity/Vol] 13 U/L Normal 0-31 [facility] Comment on above: Performed By: #### C SD, CBCA, 6873-4 #### [facility] ([id number]) [address], [address] [place] [address] Anion gap [Moles/Vol] 9 mmol/L Normal 5-15 [facility] Comment on above: Performed By: #### C SD CBCA, 6873-4 #### [facility] ([id number]) [address], [address] [place] [address] AST [Catalytic activity/Vol] 19 U/L Normal 0-41 [facility] Comment on above: Performed By: #### C SD, CBCA, 6873-4 #### [facility] ([id number]) [address], [address] [place] [address] Bilirubin [Mass/Vol] 0.7 mg/dL Normal 0.3-1.2 [facility] Comment on above: Performed By: #### C SD CBCA, 6873-4 #### [facility] ([id number]) [address], [address] [place] [address] Calcium [Mass/Vol] 8.1 mg/dL Low 8.5-10.5 [facility] Comment on above: Performed By: #### C SD, CBCA, 6873-4 #### [facility] ([id number]) [address], [address] [place] [address] Chloride [Moles/Vol] 103 mmol/L Normal 98-109 [facility] Comment on above: Performed By: #### C SD, CBCA, 6873-4 #### [facility] ([id number]) [address], [address] [place] [address] CO2 [Moles/Vol] 22 mmol/L Normal 22-32 [facility] Comment on above: Performed By: #### C BERNY BEAVER, 6873-4 #### [facility] ([id number]) [address], [facility] [address] [place] [address] Creatinine [Mass/Vol] 0.58 mg/dL Normal 0.40-1.00 [facility] Comment on above: Result Comment: METH OD TRACEABLE TO IDMS STANDARD Performed By: #### C BERNY BEAVER, 6873-4 #### [facility] ([id number]) [address], [facility] [address] [place] [address] eGFR (CKD-EPI) NON-RACE DEPENDENT >90 Normal >59 [facility] Comment on above: Result Comment: Reported eGFR is based on the CKD-EPI 2020 equation that does not use a race coefficient. Performed By: #### C BERNY BEAVER, 6873-4 #### [facility] ([id number]) [address], [address] [place] [address] Glucose [Mass/Vol] 158 mg/dL High 65-99 [facility] Comment on above: Performed By: #### BERNY Banegas MP, 6873-4 #### [facility] ([id number]) [address], [address] [place] [address] Potassium [Moles/Vol] 3.3 mmol/L Low 3.5-5.0 [facility] Comment on above: Performed By: #### BERNY Banegas MP, 6873-4 #### [facility] ([id number]) [address] [address] [place] [address] Protein [Mass/Vol] 6.2 g/dL Normal 6.0-8.0 [facility] Comment on above: Performed By: #### BERNY Banegas MP, 6873-4 #### [facility] ([id number]) [address] [place] [address] Sodium [Moles/Vol] 134 mmol/L Normal 134-146 [facility] Comment on above: Performed By: #### C MP, CBCA, 6873-4 #### [facility] ([id number]) [address], [address] [place] [address] Urea nitrogen [Mass/Vol] 9 mg/dL Normal 5-23 [facility] Comment on above: Performed By: #### C MP, CBCA, 6873-4 #### [facility] ([id number]) [address], [address] [place] [address] Glucose Glucometer (BldC) [M ass/Vol]on 02-01-2023 Glucose [Mass/Vol] 188 mg/dL High 65-99 [facility] Glucose [Mass/Vol] 153 mg/dL High 65-99 [facility] URINALYSISon 02-01-2023 Bilirubin Ql (U) Negative Normal NEG [facility] BLOOD/HGB Negative Normal NEG [facility] Color (U) YELLOW Normal YELLOW [facility] Glucose Ql (U) 1000 mg/dL Abnormal NEG [facility] Ketones Ql (U) 150 mg/dL Abnormal NEG [facility] Leukocyte esterase Test strip Ql (U) Negative Normal NEG [facility] Comment on above: Result Comment: HIGH CONCENTRATIONS OF GLUCOSE MAY DECREASE THE REACTIVITY OF THE DIPSTICK LEUKOCYTE TEST PAD. MUCOUS PRESENT Abnormal NONE [facility] Nitrite Ql (U) Negative Normal NEG [facility] pH (U) 6.0 [pH] Normal 5.0-8.5 [facility] Protein Ql (U) 30 mg/dL Abnormal NEG [facility] R.B.CELLS 1 /hpf Normal 0-5 [facility] Specific gravity (U) [Rel density] 1.030 Normal 1.003-1.035 [facility] SQUAMOUS EPITHELIUM 2 /hpf Normal 0-5 [facility] TURBIDITY CLEAR Normal CLEAR [facility] Urobilinogen (U) [Mass/Vol] mg/dL Normal <1.1 [facility] W.B.CELLS 4 /hpf Normal 0-5 [facility] Albumin [Mass/volume] in Ser um or Plasmaon 02-01-2022 Albumin [Mass/Vol] 3.5 g/dL 3.5-5.0 [facility] Work Phone: Basic Metabolic,Non-Fastingo n 02-01-2022 Anion gap [Moles/Vol] 7 mmol/L Normal 4-12 [facility] Comment on above: Performed By: #### L 400.0202, L400.2200, L400.4800 #### Main Laboratory ([facility]) [address] [place] [address] Bjorn Washington MD Calcium [Mass/Vol] 8.20 mg/dL Low 8.8-10.5 [facility] Comment on above: Performed By: #### L 400.0202, L400.2200, L400.4800 #### [facility] ([facility]) [address] [place] [address] Bjorn Washington MD Chloride [Moles/Vol] 103 mmol/L Normal 101-111 [facility] Comment on above: Performed By: #### L 400.0202, L400.2200, L400.4800 #### Main [facility] ([facility]) [address] [place] [address] Bjorn Washington MD CO2 [Moles/Vol] 23 mmol/L Invalid Interpretation Code 21-32 [facility] Comment on above: Result Comment: Delt a: 17 on 02/01/22 Performed By: #### L 400.0202, L400.2200, L400.4800 #### Main Laboratory ([facility]) [address] [place] [address] Bjorn Washington MD Creatinine [Mass/Vol] 0.56 mg/dL Low 0.60-1.30 [facility] Comment on above: Performed By: #### L 400.0202, L400.2200, L400.4800 #### Main Laboratory ([facility]) [address] [place] [address] Bjorn Washington MD GFR Calculation > 60 Normal [facility] Comment on above: Result Comment: Senior [employer] Developer mau Kidney Disease stages by NKDF Stage eGFR I >90 II 60-89 III 30-59 IV 15-29 V <15 or dialysis AGE(years) AVERAGE GFR 20-29 116 ml/min/1.73 square meters Note:This result is normalized to 1.73 square meter body surface area. Height and weight are not factored. Performed By: #### L 400.0202, L400.2200, L400.4800 #### Main Laboratory ([facility]) [address] [place] [address] Bjorn Washington MD Glucose [Mass/Vol] 224 mg/dL High 70-110 [facility] Comment on above: Performed By: #### L 400.0202, L400.2200, L400.4800 #### Main Laboratory ([facility]) [address] [place] [address] Bjorn Washington MD Potassium [Moles/Vol] 4.0 mmol/L Normal 3.6-5.0 [facility] Comment on above: Performed By: #### L 400.0202, L400.2200, L400.4800 #### Main Laboratory ([facility]) [address] [place] [address] Bjorn Washington MD Sodium [Moles/Vol] 133 mmol/L Low 135-145 [facility] Comment on above: Performed By: #### L 400.0202, L400.2200, L400.4800 #### Main Laboratory ([facility]) [address] [place], [place] [address] Bjorn Washington MD Urea nitrogen [Mass/Vol] 3 mg/dL Low 7-20 [facility] Comment on above: Performed By: #### L 400.0202, L400.2200, L400.4800 #### Main Laboratory ([facility]) [address] [place] [address] Bjorn Washington MD Basophils Auto (Bld) [#/Vol] on 02-01-2022 Basophils (Bld) [#/Vol] 0 /cmm 0-200 [facility] Work Phone: Basophils/100 WBC Auto (Bld) on 02-01-2022 Basophils/100 WBC (Bld) 0.4 % 0-2 [facility] Work Phone: Blood anion gapon 02-01-2022 Anion gap (Bld) [Moles/Vol] 7 mmol/L 4-12 [facility] Work Phone: Blood coagulation panelon Blood coagulation panel 100 /cmm 0-500 [facility] Work Phone: Blood hematocrit (volume fra ction)on 02-01-2022 Hematocrit (Bld) [Volume fraction] 35.9 % 35.0-44.0 [facility] Work Phone: Blood hemoglobin measurement (mass/volume)on 02-01-2022 Hemoglobin (Bld) [Mass/Vol] 13.0 g/dL 12.0-15.0 [facility] Work Phone: CBC with Differentialon 12- Abs Baso Count 0 /cmm Normal 0-200 [facility] Comment on above: Performed By: #### L 400.0202, L400.2200, L400.4800 #### Main Laboratory ([facility]) [address] [place] [address] Bjorn Washington MD Abs Eos Count 100 /cmm Normal 0-500 [facility] Comment on above: Performed By: #### L 400.0202, L400.2200, L400.4800 #### Main Laboratory ([facility]) [address] [place], [facility] Bjorn Washington MD Abs Lymph Count 2100 /cmm Normal 6145-1758 [facility] Comment on above: Performed By: #### L 400.0202, L400.2200, L400.4800 #### Main Laboratory ([facility]) [address] [place], [place] [address] jBorn Washington MD Abs [place] Count 600 /cmm Normal 0-800 [facility] Comment on above: Performed By: #### L 400.0202, L400.2200, L400.4800 #### Main Laboratory ([facility]) [address] [place], [facility] Bjorn Washington MD Abs Neut Count 8100 /cmm High 6144-8495 [facility] Comment on above: Performed By: #### L 400.0202, L400.2200, L400.4800 #### Main Laboratory ([facility]) [address] [place], [facility] Bjorn Washington MD Basophils/100 WBC (Bld) 0.4 % Normal 0-2 [facility] Comment on above: Performed By: #### L 400.0202, L400.2200, L400.4800 #### Main Laboratory ([facility]) [address] [place], [facility] Bjorn Washington MD EOS-Auto Diff 0.6 % Normal 0-6 [facility] Comment on above: Performed By: #### L 400.0202, L400.2200, L400.4800 #### Main Laboratory ([facility]) [address] [place], [place] [address] Bjorn Washington MD Erythrocyte distribution width (RBC) [Ratio] 14.2 % Normal 12.0-16.0 [facility] Comment on above: Performed By: #### L 400.0202, L400.2200, L400.4800 #### Main Laboratory ([facility]) [address] [place] [address] Bjorn Washington MD Hematocrit (Bld) [Volume fraction] 35.9 % Normal 35.0-44.0 [facility] Comment on above: Performed By: #### L 400.0202, L400.2200, L400.4800 #### Main Laboratory ([facility]) [address] [place] [address] Bjorn Washington MD Hemoglobin (Bld) [Mass/Vol] 13.0 g/dL Normal 12.0-15.0 [facility] Comment on above: Performed By: #### L 400.0202, L400.2200, L400.4800 #### Main Laboratory ([facility]) [address] [place] [address] Bjorn Washington MD Lymphocytes/100 WBC (Bld) 19.2 % Invalid Interpretation Code 15-45 [facility] Comment on above: Result Comment: Delt a: 6.1 on 01/31/22 Performed By: #### L 400.0202, L400.2200, L400.4800 #### Main Laboratory ([facility]) [address] [place] [address] Bjorn Washington MD MCH (RBC) [Entitic mass] 27.5 pg Normal 27.5-33.0 [facility] Comment on above: Performed By: #### L 400.0202, L400.2200, L400.4800 #### Main Laboratory ([facility]) [address] [place] [address] Bjorn Washington MD MCHC (RBC) [Mass/Vol] 35.7 g/dL Normal 33.0-36.0 [facility] Comment on above: Performed By: #### L 400.0202, L400.2200, L400.4800 #### Main Laboratory ([facility]) [address] [place], [place] [address] Bjorn Washington MD MCV 77.0 CU ANDREW Low 80-97 [facility] Comment on above: Performed By: #### L 400.0202, L400.2200, L400.4800 #### Main Laboratory ([facility]) [address] [place], [place] [address] Bjorn Washington MD [place]- Auto Diff 5.6 % Normal 2-10 [facility] Comment on above: Performed By: #### L 400.0202, L400.2200, L400.4800 #### Main Laboratory ([facility]) [address] [place], [place] [address] Bjorn Washington MD Neut-Auto Diff 74.2 % High 40-70 [facility] Comment on above: Performed By: #### L 400.0202, L400.2200, L400.4800 #### Main Laboratory ([facility]) [address] [place], [place] [address] Bjorn Washington MD NRBC-Auto 0.1 /100 WBC Normal <1 [facility] Comment on above: Performed By: #### L 400.0202, L400.2200, L400.4800 #### Main Laboratory ([facility]) [address] [place], [place] [address] Bjorn Washington MD Platelet Count 249 th/cmm Normal 150-400 [facility] Comment on above: Performed By: #### L 400.0202, L400.2200, L400.4800 #### Main Laboratory ([facility]) [address] [place], [place] [address] Bjron Washington MD RBC 4.66 mil/cmm Normal 4.00-5.10 [facility] Comment on above: Performed By: #### L 400.0202, L400.2200, L400.4800 #### Main Laboratory ([facility]) [address] [place] [address] Bjorn Washington MD WBC 10.9 th/cmm High 4.4-10.5 [facility] Comment on above: Performed By: #### L 400.0202, L400.2200, L400.4800 #### Main Laboratory ([facility]) [address] [place] [address] Bjorn Washington MD Case Management Admissionon 02-01-2022 Case Management Admission [facility] Case Management Patient: SAVI NGUYEN [address] : [address] [place], [place] [address] Location: ICU [phone] Unit #: [id number] Case Management Admission Nancy Huntley RN Service Date: 01/31/22 Case Mgmt Admission/Disch Plan - Patient Preferences AND Goals What is the patient's preference?: Services to be Determined Recommended acute discharge goals: Services to be Determined - Hospital Stay Day Day 1 Comment: 01/31/22 Pt is here for DKA/sepsis. Patient is type I diabetic. Pt has [employer] insurance. Awaiting ENT consulted for mouth abcess. Pt lives with her significant other and daughter. Pt is independent with ADLs and drives. Pt on Augmentin. Pt reports she has all supplies at home to manage DM including cont reader and insulin pump. Patient did not report a PCP but states she goes not [facility] in [place]. Loader Helper: Nancy Huntley, RN Day 2 Comment: 02/01/22 Pt drowsy and fallimng asleep during conversation with CM during CM rounding, patient denies any homegoing service/dme needs at this time including HHC. Loader Helper: Nancy Huntley, RN - Demographics Current Diagnosis(s): DKA. Sepsis Information Given by: Patient Primary Insurance: [employer] Secondary Insurance: [employer] Prescription Coverage: Yes Family/Caregiver Contact: Mi Nguyen Relationship: mother Does the patient have VA services?: No Does the patient have a [facility] provider?: No - Readmission Information Was the patient readmitted within the past 30 days?: No Where was the patient admitted from?: Home Does Patient have any Services in Place?: No - Healthcare Decisions Code Status Per Patient Request (Full Code, DNRCC, DNRCCA): Full Code Durable Power of Child Care Cook for Health Care: No Directive, No SS Referral [facility] DNR Comfort Care: No Directive, No SS Referral [facility] DNR Comfort Care Arrest: No Directive, No SS Referral - Mental Status Prior Mental Status: Alert and Oriented Current Mental Status: Alert and Oriented - Living Situation Home Situation: Lives with Significant Other Home Type: Single Family Home Does the patient drive?: Yes - Support System Support System: Relatives, Friends - Skilled Days Has patient been in a alf facility in past 60 days: No Have [...] No If Yes to either question, notify [employer].: No - Discharge Plan Discharge Plan Discussed [...] Entered by: Nancy Huntley RN on 01/31/22 [id number] Report Signed by: Nancy Huntley RN on 02/01/22 2066 < > Co-Signed by: on Normal [facility] Case Management Daily Noteon 02-01-2022 Case Management Daily Note [facility] Case Management Patient: SAVI NGUYEN. : [address] [place], [place] [address] Location: ICU [phone] Unit #: [id number] Case Management Daily Note Nancy Huntley RN Service Date: 02/01/22 Case Mgmt Daily Note - Plan of Care Loader Helper Agrees with Attending and Consult Plan: Yes - Patient Preferences AND Goals What is the patient's preference?: Return Home, No Services Recommended acute discharge goals: Return Home, No Services - Hospital Stay Days Day 1 Comment: 01/31/22 Pt is here for DKA/sepsis. Patient is type I diabetic. Pt has [employer] insurance. Awaiting ENT consulted for mouth abcess. Pt lives with her significant other and daughter. Pt is independent with ADLs and drives. Pt on Augmentin. Pt reports she has all supplies at home to manage DM including cont reader and insulin pump. Patient did not report a PCP but states she goes not [facility] in [place]. Loader Helper: Nancy Huntley, RN Day 2 Comment: 02/01/22 Pt drowsy and fallimng asleep during conversation with CM during CM rounding, patient denies any homegoing service/dme needs at this time including HHC. Loader Helper: Nancy Huntley, RN - Transportation Mode of [...] 1409 < > Co-Signed by: on Normal [facility] Comprehensive Metabolic Pane geoffrey 02-01-2022 Albumin [Mass/Vol] 3.5 g/dL Normal 3.5-5.0 [facility] Comment on above: Performed By: #### L 702.1000 #### Main Laboratory ([facility]) [address] [place] [address] Bjorn Washington MD Albumin/Globulin [Mass ratio] 1.3 {ratio} Low 1.5-2.5 [facility] Comment on above: Performed By: #### L 702.1000 #### Main Laboratory ([facility]) [address] [place] [address] Bjorn Washington MD Alk Phos 74 IU/L Normal 39-118 [facility] Comment on above: Performed By: #### L 702.1000 #### Main Laboratory ([facility]) [address] [place] [address] Bjorn Washington MD ALT [Catalytic activity/Vol] 8 U/L Low 10-40 [facility] Comment on above: Performed By: #### L 702.1000 #### Main Laboratory ([facility]) [address] [place] [address] Bjorn Washington MD Anion gap [Moles/Vol] 11 mmol/L Normal 4-12 [facility] Comment on above: Performed By: #### L 702.1000 #### Main Laboratory ([facility]) [address] [place] [address] Bjorn Washington MD AST [Catalytic activity/Vol] 9 U/L Low 15-41 [facility] Comment on above: Performed By: #### L 702.1000 #### Main Laboratory ([facility]) [address] [place] [address] Bjorn Washington MD Bili,Total 0.7 mg/dL Normal 0.2-1.0 [facility] Comment on above: Performed By: #### L 702.1000 #### Main Laboratory ([facility]) [address] [place] [address] Bjorn Washington MD Calcium [Mass/Vol] 8.30 mg/dL Low 8.8-10.5 [facility] Comment on above: Performed By: #### L 702.1000 #### Main Laboratory ([facility]) [address] [place] [address] Bjorn Washington MD Chloride [Moles/Vol] 104 mmol/L Normal 101-111 [facility] Comment on above: Performed By: #### L 702.1000 #### Main Laboratory ([facility]) [address] [place] [address] Bjorn Washington MD CO2 [Moles/Vol] 17 mmol/L Low 21-32 [facility] Comment on above: Performed By: #### L 702.1000 #### Main Laboratory ([facility]) [address] [place] [address] Bjorn Washington MD Creatinine [Mass/Vol] 0.59 mg/dL Low 0.60-1.30 [facility] Comment on above: Performed By: #### L 702.1000 #### Main Laboratory ([facility]) [address] [place] [address] Bjorn Washington MD GFR Calculation > 60 Normal [facility] Comment on above: Result Comment: [facility] mau Kidney Disease stages by NKDF Stage eGFR I >90 II 60-89 III 30-59 IV 15-29 V <15 or dialysis AGE(years) AVERAGE GFR 20-29 116 ml/min/1.73 square meters Note:This result is normalized to 1.73 square meter body surface area. Height and weight are not factored. Performed By: #### L 702.1000 #### Main Laboratory ([facility]) [address] [place] [address] Bjorn Washington MD Glucose [Mass/Vol] 250 mg/dL High 70-110 [facility] Comment on above: Performed By: #### L 702.1000 #### Main Laboratory ([facility]) [address] [place] [address] Bjorn Washington MD Potassium [Moles/Vol] 3.7 mmol/L Normal 3.6-5.0 [facility] Comment on above: Performed By: #### L 702.1000 #### Main Laboratory ([facility]) [address] [place] [address] Bjorn Washington MD Protein [Mass/Vol] 6.1 g/dL Low 6.2-8.0 [facility] Comment on above: Performed By: #### L 702.1000 #### Main Laboratory ([facility]) [facility] [place] [address] Bjorn Washington MD Sodium [Moles/Vol] 132 mmol/L Low 135-145 [facility] Comment on above: Performed By: #### L 702.1000 #### Main Laboratory ([facility]) [facility] [place] [address] Bjorn Washington MD Urea nitrogen [Mass/Vol] 5 mg/dL Low 7-20 [facility] Comment on above: Performed By: #### L 702.1000 #### Main Laboratory ([facility]) [facility] [place] [address] Bjorn Washington MD Eosinophils/100 WBC Auto (Bl d)on 02-01-2022 Eosinophils/100 WBC (Bld) 0.6 % 0-6 [facility] Work Phone: Erythrocyte distribution wid th ratioon 02-01-2022 Erythrocyte distribution width (RBC) [Ratio] 14.2 % 12.0-16.0 [facility] Work Phone: Glucose (S/P/Bld) [Mass/Vol] on 02-01-2022 Glucose [Mass/Vol] 315 mg/dL High 70-110 [facility] Work Phone: Glycated Hemoglobinon 2021 Glycated Hemoglobin 9.8 % High 4.0-5.6 [facility] Comment on above: Result Comment: Hemo globin A1c values greater than or equal to 6.5 percent are diagnostic for diabetes mellitus. Diagnosis should be confirmed by repeat testing. In diabetic patients, HbA1c goals should be discussed with healthcare provider. Test Performed by: [address] [address] Investigator: [place] M.D. Ph.D.; CLIA# [id number] Performed By: #### L 400.0202, L400.2200, L400.4800 #### [facility] ([facility]) [address] [place], [place] [address] Bjorn Washington MD Lymphocytes/100 WBC Auto (Bl d)on 02-01-2022 Lymphocytes/100 WBC (Bld) 19.2 % 15-45 [facility] Work Phone: Comment on above: Delta: 6.1 on -30 MCH Auto (RBC) [Entitic mass ]on 02-01-2022 MCH (RBC) [Entitic mass] 27.5 pg 27.5-33.0 [facility] Work Phone: MCHC Auto (RBC) [Mass/Vol]on 02-01-2022 MCHC (RBC) [Mass/Vol] 35.7 g/dL 33.0-36.0 [facility] Work Phone: MCV Auto (RBC) [Entitic vol] on 02-01-2022 MCV (RBC) [Entitic vol] 77.0 CU ANDREW Low 80-97 [facility] Work Phone: Magnesiumon 02-01-2022 Magnesium [Mass/Vol] 1.9 mg/dL Normal 1.8-2.5 [facility] Comment on above: Performed By: #### L 400.0202, L400.2200, L400.4800 #### Main Laboratory ([facility]) [address] [place] [address] Bjorn Washington MD Magnesium [Mass/Vol] 1.5 mg/dL Low 1.8-2.5 [facility] Comment on above: Performed By: #### L 702.1000 #### Main Laboratory ([facility]) [address] [place] [address] Bjorn Washington MD Meter Glucoseon 02-01-2022 Glucose [Mass/Vol] 315 mg/dL High 70-110 [facility] Comment on above: Performed By: #### L 702.1000 #### Main Laboratory ([facility]) [address] [place] [address] Bjorn Washington MD Glucose [Mass/Vol] 201 mg/dL High 70-110 [facility] Comment on above: Performed By: #### L 702.1000 #### Main Laboratory ([facility]) [address] [place] [address] Bjorn Washington MD Glucose [Mass/Vol] 212 mg/dL High 70-110 [facility] Comment on above: Performed By: #### L 702.1000 #### Main Laboratory ([facility]) [address] [place] [address] Bjorn Washington MD Glucose [Mass/Vol] 253 mg/dL High 70-110 [facility] Comment on above: Performed By: #### L 400.0202, L400.2200, L400.4800 #### Main Laboratory ([facility]) [address] [place] [address] Bjorn Washington MD Glucose [Mass/Vol] 145 mg/dL High 70-110 [facility] Comment on above: Performed By: #### L 702.1000 #### Main Laboratory ([facility]) [address] [place] [address] Bjorn Washington MD Glucose [Mass/Vol] 128 mg/dL High 70-110 [facility] Comment on above: Performed By: #### L 702.1000 #### Main Laboratory ([facility]) [address] [place] [address] Bjorn Washington MD Glucose [Mass/Vol] 222 mg/dL High 70-110 [facility] Comment on above: Performed By: #### L 400.0202, L400.2200, L400.4800 #### Main Laboratory ([facility]) [address] [place] [address] Bjorn Washington MD Glucose [Mass/Vol] 107 mg/dL Normal 70-110 [facility] Comment on above: Performed By: #### L 400.0202, L400.2200, L400.4800 #### Main Laboratory ([facility]) [address] [place] [address] Bjorn Washington MD Glucose [Mass/Vol] 245 mg/dL High 70-110 [facility] Comment on above: Performed By: #### L 400.0202, L400.2200, L400.4800 #### Main Laboratory ([facility]) [address] [place] [id number] Bjorn Washington MD Monocytes Auto (Bld) [#/Vol] on 02-01-2022 Monocytes (Bld) [#/Vol] 600 /cmm 0-800 [facility] Work Phone: Monocytes/100 WBC Auto (Bld) on 02-01-2022 Monocytes/100 WBC (Bld) 5.6 % 2-10 [facility] Work Phone: Neutrophils/100 WBC Auto (Bl d)on 02-01-2022 Neutrophils/100 WBC (Bld) 74.2 % High 40-70 [facility] Work Phone: No Panel Informationon 02-01 Glomerular Filtration Rate Calc > 60 >60 [facility] Work Phone: Comment on above: AGE(years) AVERAGE G FR 20-29 116 ml/min/1.73 square metersNote:This result is normalized to 1.73 square meter body surface area. Height and weight are not factored.Chronic Kidney Disease stages by NKDFStage eGFR I >90 II 60-89 III 30-59 IV 15-29 V <15 or dialysis Absolute Lymphocytes (auto) 2100 /cmm [id number] [facility] Work Phone: Absolute Neutrophils (auto) 8100 /cmm High 8967-5876 [facility] Work Phone: Nucleated RBC Auto (Bld) [#/ Vol]on 02-01-2022 Nucleated RBC (Bld) [#/Vol] 0.1 /100 WBC <1 [facility] Work Phone: Phosphoruson 02-01-2022 Phosphate [Mass/Vol] 2.3 mg/dL Low 2.4-4.7 [facility] Comment on above: Result Comment: Delt a: < 1.0 on 02/01/22 Performed By: #### L 702.1000 #### Main Laboratory ([facility]) [address] [place] [address] Bjorn Washington MD Phosphate [Mass/Vol] mg/dL Critically low 2.4-4.7 [facility] Comment on above: Result Comment: Crit ical Result S_PHOS:<1.0 Called to and read back by: AZAM PHILIPPE at: 02/01/2022 10:33:13 by:SANDHYA Performed By: #### L 400.0202, L400.2200, L498.4475 #### Main Laboratory ([facility]) [address] [facility] [place] [address] Bjorn Washington MD Phosphate [Mass/Vol] 1.0 mg/dL Critically low 2.4-4.7 [facility] Comment on above: Result Comment: Crit ical Result S_PHOS:1.0 Called to and read back by: AZAM PHILIPPE at: 02/01/2022 09:18:42 by:SANDHYA Performed By: #### L 702.1000 #### Main Laboratory ([facility]) [address] [place] [address] Bjorn Washington MD Platelets Auto (Bld) [#/Vol] on 02-01-2022 Platelets (Bld) [#/Vol] 249 th/cmm 150-400 [facility] Work Phone: Progress Note - ENTon 2021 Progress Note - ENT [facility] Medical Records Patient: SAVI NGUYEN [address] : [address] [place], [place] [address] Location: ICU [phone] Unit #: [id number] Progress Note - ENT Good Calderon MD [...] < > Report Signed by: on Normal [facility] Progress Note Critical Careo n 02-01-2022 Progress Note Critical Care [facility] Medical Records Patient: SAVI NGUYEN [address] : [address] [place] [address] Location: ICU [phone] Unit #: [id number] Progress Note Critical Care Tee Buck PA-C [...] N/A ] Case Man/Social Work: [N/A] Spiritual Care/Palliative/Eth ics: [N/A] Critical issues resolved. Code Status 01/31/22 [...] Converses Score: 15 Current Clinical Active Medications Amoxicillin/Clavula raquel Potassium (Amoxicillin AND Pot Clav 875 Mg Tab) 875 mg PO Q12H CARLOS Stop: 02/11/22 05:01 Dextrose (Dextrose 50% 25 Gm/50 Ml Syr) 12.5 gm IV PUSH DIRECTED PRN PRN Reason: Hypoglcyemia per insulin protocol Stop: 05/10/22 17:36 Electrolyte Protocol (Phosphorus Replacement (more content not included)... Normal [facility] RBC Auto (Bld) [#/Vol]on RBC (Bld) [#/Vol] 4.66 mil/cmm 4.00-5.10 [facility] Work Phone: Serum or plasma alanine carpenter otransferase measurement (enzymatic activity/volume)on 02-01-2022 ALT [Catalytic activity/Vol] 8 U/L Low 10-40 [facility] Work Phone: Serum or plasma albumin/glob ulin mass ratioon 02-01-2022 Albumin/Globulin [Mass ratio] 1.3 {ratio} Low 1.5-2.5 [facility] Work Phone: Serum or plasma alkaline denice sphatase measurement (enzymatic activity/volume)on 02-01-2022 ALP [Catalytic activity/Vol] 74 U/L 39-118 [facility] Work Phone: Serum or plasma aspartate am inotransferase measurement (enzymatic activity/volume)on 02-01-2022 AST [Catalytic activity/Vol] 9 U/L Low 15-41 [facility] Work Phone: Serum or plasma calcium ruth ann urement (mass/volume)on 02-01-2022 Calcium [Mass/Vol] 8.20 mg/dL Low 8.8-10.5 [facility] Work Phone: Serum or plasma carbon dioxi de, total measurement (moles/volume)on 02-01-2022 CO2 [Moles/Vol] 23 mmol/L 21-32 [facility] Work Phone: Comment on above: Delta: 17 on 2-0317 Serum or plasma chloride desirae surement (moles/volume)on 02-01-2022 Chloride [Moles/Vol] 103 mmol/L 101-111 [facility] Work Phone: Serum or plasma creatinine m easurement (mass/volume)on 02-01-2022 Creatinine [Mass/Vol] 0.56 mg/dL Low 0.60-1.30 [facility] Work Phone: Serum or plasma glucose ruth ann urement (mass/volume)on 02-01-2022 Glucose [Mass/Vol] 224 mg/dL High 70-110 [facility] Work Phone: Serum or plasma magnesium me asurement (mass/volume)on 02-01-2022 Magnesium [Mass/Vol] 1.9 mg/dL 1.8-2.5 [facility] Work Phone: Serum or plasma phosphate me asurement (mass/volume)on 02-01-2022 Phosphate [Mass/Vol] 2.3 mg/dL Low 2.4-4.7 [facility] Work Phone: Comment on above: Delta: < 1.0 on 01/06 Serum or plasma potassium me asurement (moles/volume)on 12-28-2022 Potassium [Moles/Vol] 4.0 mmol/L 3.6-5.0 [facility] Work Phone: Serum or plasma protein ruth ann urement (mass/volume)on 02-01-2022 Protein [Mass/Vol] 6.1 g/dL Low 6.2-8.0 [facility] Work Phone: Serum or plasma sodium measu rement (moles/volume)on 02-01-2022 Sodium [Moles/Vol] 133 mmol/L Low 135-145 [facility] Work Phone: Serum or plasma total biliru bin measurement (mass/volume)on 02-01-2022 Bilirubin [Mass/Vol] 0.7 mg/dL 0.2-1.0 [facility] Work Phone: Serum or plasma urea nitroge n measurement (mass/volume)on 02-01-2022 Urea nitrogen [Mass/Vol] 3 mg/dL Low 7-20 [facility] Work Phone: WBC Auto (Bld) [#/Vol]on WBC (Bld) [#/Vol] 10.9 th/cmm High 4.4-10.5 [facility] Work Phone: * Urine urinalysis yeast owen iants panel by computer assisted methodon 01-31-2022 Urinalysis yeast variants panel Computer assisted (U) Present High [facility] Work Phone: Automated bacteria count in urine sediment (number/area)on 01-31-2022 Bacteria Auto (Urine sed) [#/Area] Trace [facility] Work Phone: Automated blood hypochromia detectionon 01-31-2022 Hypochromia Auto Ql (Bld) 1+ [facility] Work Phone: Automated erythrocytes count in urine sediment (number/area)on 01-31-2022 RBC Auto (Urine sed) [#/Area] 0-2 /HPF [facility] Work Phone: Automated leukocytes count i n urine sediment (number/area)on 01-31-2022 WBC Auto (Urine sed) [#/Area] 0-5 /HPF [facility] Work Phone: Automated squamous epithelia l cells count in urine sediment (number/area)on 01-31-2022 Epithelial cells.squamous Auto (Urine sed) [#/Area] 11-20 /HPF High [facility] Work Phone: Basic Metabolic Panel,Fastin javi 01-31-2022 Anion gap [Moles/Vol] 8 mmol/L Normal 4-12 [facility] Comment on above: Performed By: #### L 400.0202, L400.2200, L400.4800 #### Main Laboratory ([facility]) [address] [place] [address] Bjorn Washington MD Calcium [Mass/Vol] 8.50 mg/dL Low 8.8-10.5 [facility] Comment on above: Performed By: #### L 400.0202, L400.2200, L400.4800 #### Main Laboratory ([facility]) [address] [place] [id number] Bjorn Washington MD Chloride [Moles/Vol] 105 mmol/L Normal 101-111 [facility] Comment on above: Performed By: #### L 400.0202, L400.2200, L400.4800 #### Main Laboratory ([facility]) [address] [place] [address] Bjorn Washington MD CO2 [Moles/Vol] 19 mmol/L Low 21-32 [facility] Comment on above: Performed By: #### L 400.0202, L400.2200, L400.4800 #### Main Laboratory ([facility]) [address] [place] [address] Bjorn Washington MD Creatinine [Mass/Vol] 0.62 mg/dL Normal 0.60-1.30 [facility] Comment on above: Performed By: #### L 400.0202, L400.2200, L400.4800 #### Main Laboratory ([facility]) [address] [place] [address] Bjorn Washington MD GFR Calculation > 60 Normal [facility] Comment on above: Result Comment: [facility] mau Kidney Disease stages by NKDF Stage eGFR I >90 II 60-89 III 30-59 IV 15-29 V <15 or dialysis AGE(years) AVERAGE GFR 20-29 116 ml/min/1.73 square meters Note:This result is normalized to 1.73 square meter body surface area. Height and weight are not factored. Performed By: #### L 400.0202, L400.2200, L400.4800 #### Main Laboratory ([facility]) [address] [place] [address] Bjorn Washington MD Glucose [Mass/Vol] 216 mg/dL High 70-110 [facility] Comment on above: Performed By: #### L 400.0202, L400.2200, L400.4800 #### Main Laboratory ([facility]) [address] [place] [address] Bjorn Washington MD Potassium [Moles/Vol] 3.4 mmol/L Low 3.6-5.0 [facility] Comment on above: Performed By: #### L 400.0202, L400.2200, L400.4800 #### Main Laboratory ([facility]) [address] [place] [address] Bjorn Washington MD Sodium [Moles/Vol] 132 mmol/L Low 135-145 [facility] Comment on above: Performed By: #### L 400.0202, L400.2200, L400.4800 #### Main Laboratory ([facility]) [address] [place] [address] Bjorn Washington MD Urea nitrogen [Mass/Vol] 7 mg/dL Normal 7-20 [facility] Comment on above: Performed By: #### L 400.0202, L400.2200, L400.4800 #### Main Laboratory ([facility]) [address] [place] [address] Bjorn Washington MD Anion gap [Moles/Vol] 8 mmol/L Normal 4-12 [facility] Comment on above: Performed By: #### L 702.1000 #### Main Laboratory ([facility]) [address] [place] [address] Bjorn Washington MD Calcium [Mass/Vol] 8.40 mg/dL Low 8.8-10.5 [facility] Comment on above: Performed By: #### L 702.1000 #### Main Laboratory ([facility]) [address] [place] [address] Bjorn Washington MD Chloride [Moles/Vol] 108 mmol/L Normal 101-111 [facility] Comment on above: Performed By: #### L 702.1000 #### Main Laboratory ([facility]) [address] [place] [address] Bjorn Washington MD CO2 [Moles/Vol] 19 mmol/L Low 21-32 [facility] Comment on above: Result Comment: Delt a: 12 on 01/31/22 Performed By: #### L 702.1000 #### Main Laboratory ([facility]) [address] [place] [address] Bjorn Washington MD Creatinine [Mass/Vol] 0.66 mg/dL Normal 0.60-1.30 [facility] Comment on above: Performed By: #### L 702.1000 #### Main Laboratory ([facility]) [address] [place] [address] Bjorn Washington MD GFR Calculation > 60 Normal [facility] Comment on above: Result Comment: Senior [employer] mau Kidney Disease stages by NKDF Stage eGFR I >90 II 60-89 III 30-59 IV 15-29 V <15 or dialysis AGE(years) AVERAGE GFR 20-29 116 ml/min/1.73 square meters Note:This result is normalized to 1.73 square meter body surface area. Height and weight are not factored. Performed By: #### L 702.1000 #### Main Laboratory ([facility]) [address] [place] [address] Bjorn Washington MD Glucose [Mass/Vol] 179 mg/dL High 70-110 [facility] Comment on above: Performed By: #### L 702.1000 #### Main Laboratory ([facility]) [address] [place] [address] Bjorn Washington MD Potassium [Moles/Vol] 3.6 mmol/L Normal 3.6-5.0 [facility] Comment on above: Performed By: #### L 702.1000 #### Main Laboratory ([facility]) [address] [place] [address] Bjorn Washington MD Sodium [Moles/Vol] 135 mmol/L Normal 135-145 [facility] Comment on above: Performed By: #### L 702.1000 #### Main Laboratory ([facility]) [address] [place] [address] Bjorn Washington MD Urea nitrogen [Mass/Vol] 8 mg/dL Normal 7-20 [facility] Comment on above: Performed By: #### L 702.1000 #### Main Laboratory ([facility]) [address] [place] [address] Bjorn Washington MD Anion gap [Moles/Vol] 13 mmol/L High 4-12 [facility] Comment on above: Performed By: #### L 400.0202, L400.2200, L400.4800 #### Main Laboratory ([facility]) [address] [place] [address] Bjorn Washington MD Calcium [Mass/Vol] 8.10 mg/dL Low 8.8-10.5 [facility] Comment on above: Performed By: #### L 400.0202, L400.2200, L400.4800 #### Main Laboratory ([facility]) [address] [place] [address] Bjorn Washington MD Chloride [Moles/Vol] 112 mmol/L High 101-111 [facility] Comment on above: Performed By: #### L 400.0202, L400.2200, L400.4800 #### Main Laboratory ([facility]) [address] [place] [address] Bjorn Washington MD CO2 [Moles/Vol] 12 mmol/L Low 21-32 [facility] Comment on above: Performed By: #### L 400.0202, L400.2200, L400.4800 #### Main Laboratory ([facility]) [address] [place] [address] Bjorn Washington MD Creatinine [Mass/Vol] 0.76 mg/dL Normal 0.60-1.30 [facility] Comment on above: Performed By: #### L 400.0202, L400.2200, L400.4800 #### Main Laboratory ([facility]) [address] [place] [address] Bjorn Washington MD GFR Calculation > 60 Normal [facility] Comment on above: Result Comment: Senior [employer] Developer mau Kidney Disease stages by NKDF Stage eGFR I >90 II 60-89 III 30-59 IV 15-29 V <15 or dialysis AGE(years) AVERAGE GFR 20-29 116 ml/min/1.73 square meters Note:This result is normalized to 1.73 square meter body surface area. Height and weight are not factored. Performed By: #### L 400.0202, L400.2200, L400.4800 #### Main Laboratory ([facility]) [address] [place] [address] Bjorn Washington MD Glucose [Mass/Vol] 175 mg/dL High 70-110 [facility] Comment on above: Performed By: #### L 400.0202, L400.2200, L400.4800 #### Main Laboratory ([facility]) [address] [place] [address] Bjorn Washington MD Potassium [Moles/Vol] 4.5 mmol/L Normal 3.6-5.0 [facility] Comment on above: Performed By: #### L 400.0202, L400.2200, L400.4800 #### Main Laboratory ([facility]) [address] [place] [address] Bjorn Washington MD Sodium [Moles/Vol] 137 mmol/L Normal 135-145 [facility] Comment on above: Performed By: #### L 400.0202, L400.2200, L400.4800 #### Main Laboratory ([facility]) [address] [place] [address] Bjorn Washington MD Urea nitrogen [Mass/Vol] 11 mg/dL Normal 7-20 [facility] Comment on above: Performed By: #### L 400.0202, L400.2200, L400.4800 #### Main Laboratory ([facility]) [address] [place] [address] Bjorn Washington MD Anion gap [Moles/Vol] 17 mmol/L High 4-12 [facility] Comment on above: Performed By: #### L 702.1000 #### Main Laboratory ([facility]) [address] [place] [address] Bjorn Washington MD Calcium [Mass/Vol] 8.40 mg/dL Low 8.8-10.5 [facility] Comment on above: Performed By: #### L 702.1000 #### Main Laboratory ([facility]) [address] [place] [address] Bjorn Washington MD Chloride [Moles/Vol] 111 mmol/L Normal 101-111 [facility] Comment on above: Performed By: #### L 702.1000 #### Main Laboratory ([facility]) [address] [place] [address] Bjorn Washington MD CO2 [Moles/Vol] 10 mmol/L Low 21-32 [facility] Comment on above: Performed By: #### L 702.1000 #### Main Laboratory ([facility]) [address] [place] [address] Bjorn Washington MD Creatinine [Mass/Vol] 0.83 mg/dL Normal 0.60-1.30 [facility] Comment on above: Performed By: #### L 702.1000 #### Main Laboratory ([facility]) [address] [place] [address] Bjorn Washington MD GFR Calculation > 60 Normal [facility] Comment on above: Result Comment: Senior [employer] Developer mau Kidney Disease stages by NKDF Stage eGFR I >90 II 60-89 III 30-59 IV 15-29 V <15 or dialysis AGE(years) AVERAGE GFR 20-29 116 ml/min/1.73 square meters Note:This result is normalized to 1.73 square meter body surface area. Height and weight are not factored. Performed By: #### L 702.1000 #### Main Laboratory ([facility]) [address] [place] [address] Bjorn Washington MD Glucose [Mass/Vol] 212 mg/dL High 70-110 [facility] Comment on above: Performed By: #### L 702.1000 #### Main Laboratory ([facility]) [address] [place] [address] Bjorn Washington MD Potassium [Moles/Vol] 4.2 mmol/L Normal 3.6-5.0 [facility] Comment on above: Performed By: #### L 702.1000 #### Main Laboratory ([facility]) [address] [place] [address] Bjorn Washington MD Sodium [Moles/Vol] 138 mmol/L Normal 135-145 [facility] Comment on above: Performed By: #### L 702.1000 #### Main Laboratory ([facility]) [address] [place] [address] Bjorn Washington MD Urea nitrogen [Mass/Vol] 12 mg/dL Normal 7-20 [facility] Comment on above: Performed By: #### L 702.1000 #### Main Laboratory ([facility]) [address] [place] [address] Bjorn Washington MD Bilirubin Auto test strip Ql (U)on 01-31-2022 Bilirubin Ql (U) Negative Negative [facility] Work Phone: Blood hemoglobin A1/total he moglobinon 01-31-2022 Hemoglobin A1 (Bld) [Mass fraction] 9.8 % High [facility] Work Phone: Comment on above: Hemoglobin A1c value s greater than or equal to 6.5 percentare diagnostic for diabetes mellitus. Diagnosis should beconfirmed by repeat testing. In diabetic patients, [id number] should be discussed with healthcare provider.Test Performed by:[address] [id number] Director: [place] M.D. Ph.D.; CLIA# [id number] CBC with Differentialon 01-06 Abs Baso Count 100 /cmm Normal 0-200 [facility] Comment on above: Performed By: #### L 702.1000 #### Main Laboratory ([facility]) [address] [place] [address] Bjorn Washington MD Abs Eos Count 0 /cmm Normal 0-500 [facility] Comment on above: Performed By: #### L 702.1000 #### Main Laboratory ([facility]) [address] [place], [place] [address] Bjorn Washington MD Abs Lymph Count 1600 /cmm Normal 3506-9625 [facility] Comment on above: Performed By: #### L 702.1000 #### Main Laboratory ([facility]) [address] [place], [place] [address] Bjorn Washington MD Abs [place] Count 1600 /cmm High 0-800 [facility] Comment on above: Performed By: #### L 702.1000 #### Main Laboratory ([facility]) [address] [place], [place] [address] Bjorn Washington MD Abs Neut Count 92610 /cmm High 3937-7249 [facility] Comment on above: Performed By: #### L 702.1000 #### Main Laboratory ([facility]) [address] [place], [place] [address] Bjorn Washington MD Basophils/100 WBC (Bld) 0.4 % Normal 0-2 [facility] Comment on above: Performed By: #### L 702.1000 #### Main Laboratory ([facility]) [address] [place], [place] [address] Bjorn Washington MD EOS-Auto Diff 0.1 % Normal 0-6 [facility] Comment on above: Performed By: #### L 702.1000 #### Main Laboratory ([facility]) [address] [place], [place] [address] Bjorn Washington MD Erythrocyte distribution width (RBC) [Ratio] 14.6 % Normal 12.0-16.0 [facility] Comment on above: Performed By: #### L 702.1000 #### Main Laboratory ([facility]) [address] [place], [place] [address] Bjorn Washington MD Hematocrit (Bld) [Volume fraction] 43.8 % Normal 35.0-44.0 [facility] Comment on above: Performed By: #### L 702.1000 #### Main Laboratory ([facility]) [address] [place], [place] [address] Bjorn Washington MD Hemoglobin (Bld) [Mass/Vol] 14.8 g/dL Normal 12.0-15.0 [facility] Comment on above: Performed By: #### L 702.1000 #### Main Laboratory ([facility]) [address] [place], [place] [address] Bjorn Washington MD Hypochromasia 1+ Normal [facility] Comment on above: Performed By: #### L 702.1000 #### Main Laboratory ([facility]) [address] [place] [address] Bjorn Washington MD Lymphocytes/100 WBC (Bld) 6.1 % Low 15-45 [facility] Comment on above: Performed By: #### L 702.1000 #### Main Laboratory ([facility]) [address] [place], [place] [address] Bjorn Washington MD MCH (RBC) [Entitic mass] 26.7 pg Low 27.5-33.0 [facility] Comment on above: Performed By: #### L 702.1000 #### Main Laboratory ([facility]) [address] [place], [place] [address] Bjorn Washington MD MCHC (RBC) [Mass/Vol] 33.9 g/dL Normal 33.0-36.0 [facility] Comment on above: Performed By: #### L 702.1000 #### Main Laboratory ([facility]) [address] [place], [place] [address] Bjorn Washington MD MCV 79.0 CU ANDREW Low 80-97 [facility] Comment on above: Performed By: #### L 702.1000 #### Main Laboratory ([facility]) [address] [place], [place] [address] Bjorn Washington MD [place]- Auto Diff 6.1 % Normal 2-10 [facility] Comment on above: Performed By: #### L 702.1000 #### Main Laboratory ([facility]) [address] [place] [address] Bjorn Washington MD Neut-Auto Diff 87.3 % High 40-70 [facility] Comment on above: Performed By: #### L 702.1000 #### Main Laboratory ([facility]) [address] [place] [address] Bjorn Washington MD NRBC-Auto 0.0 /100 WBC Normal <1 [facility] Comment on above: Performed By: #### L 702.1000 #### Main Laboratory ([facility]) [address] [place] [address] Bjorn Washington MD Platelet Count 309 th/cmm Normal 150-400 [facility] Comment on above: Performed By: #### L 702.1000 #### Main Laboratory ([facility]) [address] [place] [address] Bjorn Washington MD RBC 5.55 mil/cmm High 4.00-5.10 [facility] Comment on above: Performed By: #### L 702.1000 #### Main Laboratory ([facility]) [address] [place] [address] Bjorn Washington MD WBC 25.6 th/cmm High 4.4-10.5 [facility] Comment on above: Performed By: #### L 702.1000 #### Main Laboratory ([facility]) [address] [place] [address] Sinuses With Contraston 1 04-03-2021 CT Sinuses With Contrast [facility] Radiology Department Patient: SAVI NGUYEN [address] : 2000 Sex: Waqar [place], [place] [address] Location: [facility] [phone] Unit #: [id number] Ordering Phys: Good Calderon MD Exam Date: [...] by: Shane KNAPP,David Turpin on 01/31/221856 Normal [facility] Complete urinalysis with ref torito to cultureon 01-31-2022 Urinalysis complete W Reflex Culture panel (U) No [facility] Work Phone: Comment on above: Culture not done per lab protocol Consultation - ENTon 022 Consultation - ENT [facility] Medical Records Patient: SAVI NGUYEN [address] : 2000 [place], [place] [address] Location: ICU [phone] Unit #: [id number] Consultation - ENT Good Calderon MD Service [...] < > Report Signed by: on Normal [facility] HCO3 (BldV) [Moles/Vol]on HCO3 (Bld) [Moles/Vol] 10.4 mmol/L Low 23.0-28.0 L [facility] Work Phone: Hemoglobin A1Con 01-31-2022 Hgb A1C Normal 4.4-6.4 [facility] Comment on above: Result Comment: Vari ant detected - Specimen sent to [facility] for A1c testing. Performed By: #### L 400.0202, L400.2200, L400.4800 #### Main Laboratory ([facility]) [address] [place] [address] Bjorn Washington MD Hemoglobin [Mass/volume] in Urine by Automated test stripon 01-31-2022 Hemoglobin Auto test strip (U) [Mass/Vol] Negative Negative [facility] Work Phone: Ionized Calciumon 01-31-2022 Ionized Calcium 1.20 mmol/L Normal 1.15-1.29 [facility] Comment on above: Performed By: #### L 702.1000 #### Main Laboratory ([facility]) [address] [place] [address] Bjorn Washington MD Ketones Auto test strip (U) [Mass/Vol]on 01-31-2022 Ketones (U) [Mass/Vol] 10 mg/dL High Negative [facility] Work Phone: Magnesiumon 01-31-2022 Magnesium [Mass/Vol] 1.8 mg/dL Normal 1.8-2.5 [facility] Comment on above: Performed By: #### L 702.1000 #### Main Laboratory ([facility]) [address] [place] [address] Bjorn Washington MD Meter Glucoseon 01-31-2022 Glucose [Mass/Vol] 173 mg/dL High 70-110 [facility] Comment on above: Performed By: #### L 702.1000 #### Main Laboratory ([facility]) [address] [place] [address] Bjorn Washington MD Glucose [Mass/Vol] 146 mg/dL High 70-110 [facility] Comment on above: Performed By: #### L 400.0202, L400.2200, L400.4800 #### Main Laboratory ([facility]) [address] [place] [address] Bjorn Washington MD Glucose [Mass/Vol] 136 mg/dL High 70-110 [facility] Comment on above: Performed By: #### L 400.0202, L400.2200, L400.4800 #### Main Laboratory ([facility]) [address] [place] [address] Bjorn Washington MD Glucose [Mass/Vol] 163 mg/dL High 70-110 [facility] Comment on above: Performed By: #### L 702.1000 #### Main Laboratory ([facility]) [address] [place] [address] Bjorn Washington MD Glucose [Mass/Vol] 188 mg/dL High 70-110 [facility] Comment on above: Performed By: #### L 702.1000 #### Main Laboratory ([facility]) [address] [place] [address] Bjorn Washington MD Glucose [Mass/Vol] 170 mg/dL High 70-110 [facility] Comment on above: Performed By: #### L 702.1000 #### Main Laboratory ([facility]) [address] [place] [address] Bjorn Washington MD Glucose [Mass/Vol] 165 mg/dL High 70-110 [facility] Comment on above: Performed By: #### L 702.1000 #### Main Laboratory ([facility]) [address] [place] [address] Bjorn Washington MD Glucose [Mass/Vol] 164 mg/dL High 70-110 [facility] Comment on above: Performed By: #### L 702.1000 #### Main Laboratory ([facility]) [address] [place] [address] Bjorn Washington MD Glucose [Mass/Vol] 196 mg/dL High 70-110 [facility] Comment on above: Performed By: #### L 400.0202, L400.2200, L400.4800 #### Main Laboratory ([facility]) [address] [place] [address] Bjorn Washington MD Glucose [Mass/Vol] 185 mg/dL High 70-110 [facility] Comment on above: Performed By: #### L 400.0202, L400.2200, L400.4800 #### Main Laboratory ([facility]) [address] [place] [address] Bjorn Washington MD Glucose [Mass/Vol] 195 mg/dL High 70-110 [facility] Comment on above: Performed By: #### L 702.1000 #### Main Laboratory ([facility]) [address] [place] [address] Bjorn Washington MD Glucose [Mass/Vol] 191 mg/dL High 70-110 [facility] Comment on above: Performed By: #### L 702.1000 #### Main Laboratory ([facility]) [address] [place] [address] Bjorn Washington MD Glucose [Mass/Vol] 228 mg/dL High 70-110 [facility] Comment on above: Performed By: #### L 702.1000 #### Main Laboratory ([facility]) [address] [place] [address] Bjorn Washington MD No Panel Informationon 01-31 Blood Gas Notified By Yes [facility] Work Phone: Blood Gas Patient Equipment Room Air [facility] Work Phone: Venous Blood pH 7.22 Low 7.31-7.41 [facility] Work Phone: Hemoglobin A1c See comment 4.4-6.4 [facility] Work Phone: Comment on above: Variant detected - S pecimen sent to [facility] for A1c testing. Ionized Calcium 1.20 mmol/L 1.15-1.29 [facility] Work Phone: Osmolality of Serum or Plasm aon 01-31-2022 Osmolality [Osmolality] 299 mOsm 270-300 [facility] Work Phone: Osmolality, Serumon 02-01-20 22 Osmolality, Serum 299 mOsm Normal 270-300 [facility] Comment on above: Performed By: #### L 400.0202, L400.2200, L400.4800 #### Main Laboratory ([facility]) [address] [place] [address] Bjorn Washington MD Osmolality, Serum 297 mOsm Normal 270-300 [facility] Comment on above: Performed By: #### L 702.1000 #### Main Laboratory ([facility]) [address] [place] [address] Bjorn Washington MD Osmolality, Serum 298 mOsm Normal 270-300 [facility] Comment on above: Performed By: #### L 400.0202, L400.2200, L400.4800 #### Main Laboratory ([facility]) [address] [place] [address] Bjorn Washington MD Osmolality, Serum 309 mOsm High 270-300 [facility] Comment on above: Performed By: #### L 702.1000 #### Main Laboratory ([facility]) [address] [place] [address] Bjorn Washington MD Other useful informationon 1 04-03-2021 Other useful information Vein [facility] Work Phone: Phosphoruson 01-31-2022 Phosphate [Mass/Vol] 1.3 mg/dL Low 2.4-4.7 [facility] Comment on above: Performed By: #### L 400.0202, L400.2200, L400.4800 #### Main Laboratory ([facility]) [address] [place] [address] Bjorn Washington MD Phosphate [Mass/Vol] 1.5 mg/dL Low 2.4-4.7 [facility] Comment on above: Result Comment: Delt a: 2.1 on 01/31/22 Performed By: #### L 702.1000 #### Main Laboratory ([facility]) [address] [place] [address] Bjorn Washington MD Phosphate [Mass/Vol] 2.1 mg/dL Low 2.4-4.7 [facility] Comment on above: Performed By: #### L 400.0202, L400.2200, L400.4800 #### Main Laboratory ([facility]) [address] [place] [address] Bjorn Washington MD Phosphate [Mass/Vol] 2.3 mg/dL Low 2.4-4.7 [facility] Comment on above: Performed By: #### L 702.1000 #### Main Laboratory ([facility]) [address] [place] [address] Bjorn Washington MD Protein Auto test strip (U) [Mass/Vol]on 01-31-2022 Protein (U) [Mass/Vol] 10 mg/dL Negative [facility] Work Phone: Serum or plasma fasting gluc ose measurement (mass/volume)on 01-31-2022 Glucose post fast [Mass/Vol] 216 mg/dL High 70-110 [facility] Work Phone: Specific gravity Auto test s trip (U) [Rel density]on 01-31-2022 Specific gravity (U) [Rel density] >=1.030 1.000-1.035 [facility] Work Phone: Urinalysis w Micro Rflx Cult on 01-31-2022 Bacteria Trace Normal [facility] Comment on above: Order Comment: Urine Source Urine, Clean Catch Performed By: #### L 400.0202, L400.2200, L400.4800 #### Main Laboratory ([facility]) [address] [place], [place] [address] Bjorn Washington MD Epi,Squamous 11-20 [facility] Comment on above: Order Comment: Urine Source Urine, Clean Catch Performed By: #### L 400.0202, L400.2200, L400.4800 #### Main Laboratory ([facility]) [address] [place], [place] [address] Bjorn Washington MD Mucous Present [facility] Comment on above: Order Comment: Urine Source Urine, Clean Catch Performed By: #### L 400.0202, L400.2200, L400.4800 #### Main Laboratory ([facility]) [address] [place] [address] Bjorn Washington MD RBC 0-2 [facility] Comment on above: Order Comment: Urine Source Urine, Clean Catch Performed By: #### L 400.0202, L400.2200, L400.4800 #### Main Laboratory ([facility]) [address] [place], [place] [address] Bjorn Washington MD UA Reflex Culture No [facility] Comment on above: Order Comment: Urine Source Urine, Clean Catch Result Comment: Cult ure not done per lab protocol Performed By: #### L 400.0202, L400.2200, L400.4800 #### Main Laboratory ([facility]) [address] [place], [place] [address] Bjorn Washington MD WBC 0-5 [facility] Comment on above: Order Comment: Urine Source Urine, Clean Catch Performed By: #### L 400.0202, L400.2200, L400.4800 #### Main Laboratory ([facility]) [address] [place], [place] [address] Bjorn Washington MD Yeast Present [facility] Comment on above: Order Comment: Urine Source Urine, Clean Catch Performed By: #### L 400.0202, L400.2200, L400.4800 #### Main Laboratory ([facility]) [address] [place] [address] Bjorn Washington MD Appearance (U) Clear Normal [facility] Comment on above: Order Comment: Urine Source Urine, Clean Catch Performed By: #### L 400.0202, L400.2200, L400.4800 #### Main Laboratory ([facility]) [address] [place] [address] Bjorn Washington MD Bilirubin Ql (U) Negative Normal Negative [facility] Comment on above: Order Comment: Urine Source Urine, Clean Catch Performed By: #### L 400.0202, L400.2200, L400.4800 #### Main Laboratory ([facility]) [address] [place], [facility] Bjorn Washington MD Color (U) Yellow Normal [facility] Comment on above: Order Comment: Urine Source Urine, Clean Catch Performed By: #### L 400.0202, L400.2200, L400.4800 #### Main Laboratory ([facility]) [address] [place] [address] Bjorn Washington MD Glucose Ql (U) Negative Normal Negative [facility] Comment on above: Order Comment: Urine Source Urine, Clean Catch Performed By: #### L 400.0202, L400.2200, L400.4800 #### Main Laboratory ([facility]) [address] [place] [address] Bjorn Washington MD Ketones Ql (U) 10 mg/dL High Negative [facility] Comment on above: Order Comment: Urine Source Urine, Clean Catch Performed By: #### L 400.0202, L400.2200, L400.4800 #### Main Laboratory ([facility]) [address] [place] [address] Bjorn Washington MD Leukocytes Negative Normal Negative [facility] Comment on above: Order Comment: Urine Source Urine, Clean Catch Performed By: #### L 400.0202, L400.2200, L400.4800 #### Main Laboratory ([facility]) [address] [place], [facility] Bjorn Washington MD Nitrite Ql (U) Negative Normal Negative [facility] Comment on above: Order Comment: Urine Source Urine, Clean Catch Performed By: #### L 400.0202, L400.2200, L400.4800 #### Main Laboratory ([facility]) [address] [place] [address] Bjorn Washington MD pH (U) 6.0 [pH] Normal 5.0-8.0 [facility] Comment on above: Order Comment: Urine Source Urine, Clean Catch Performed By: #### L 400.0202, L400.2200, L400.4800 #### Main Laboratory ([facility]) [address] [place], [place] [address] Bjorn Washington MD Protein Ql (U) 10 mg/dL Normal Negative [facility] Comment on above: Order Comment: Urine Source Urine, Clean Catch Performed By: #### L 400.0202, L400.2200, L400.4800 #### Main Laboratory ([facility]) [address] [place] [address] Bjorn Washington MD Specific gravity (U) [Rel density] >=1.030 Normal 1.000-1.035 [facility] Comment on above: Order Comment: Urine Source Urine, Clean Catch Performed By: #### L 400.0202, L400.2200, L400.4800 #### Main Laboratory ([facility]) [address] [place], [facility] Bjorn Washington MD Urobilinogen Normal Normal 0.2-1.0 [facility] Comment on above: Order Comment: Urine Source Urine, Clean Catch Performed By: #### L 400.0202, L400.2200, L400.4800 #### Main Laboratory ([facility]) [address] [place] [address] Bjorn Washington MD Urine appearance determinati onon 01-31-2022 Appearance (U) Clear [facility] Work Phone: Urine color determinationon 01-31-2022 Color (U) Yellow [facility] Work Phone: Urine glucose measurement by automated test strip (mass/volume)on 01-31-2022 Glucose Auto test strip (U) [Mass/Vol] Negative Negative [facility] Work Phone: Urine leukocytes count by au tomated test strip (number/volume)on 01-31-2022 WBC Auto test strip (U) [#/Vol] Negative Negative [facility] Work Phone: Urine mucus detection by aut omated methodon 01-31-2022 Mucus Auto Ql (U) Present [facility] Work Phone: Urine nitrite detection by a utomated test stripon 01-31-2022 Nitrite Auto test strip Ql (U) Negative Negative [facility] Work Phone: Urobilinogen Auto test strip (U) [Mass/Vol]on 01-31-2022 Urobilinogen (U) [Mass/Vol] Normal 0.2-1.0 [facility] Work Phone: Venous Blood Gaseson 022 ABG Device Room Air Normal [facility] Comment on above: Performed By: #### L 702.1000 #### Main Laboratory ([facility]) [address] [place] [id number] Bjorn Washington MD ABG Draw Site Vein Normal [facility] Comment on above: Performed By: #### L 702.1000 #### Main Laboratory ([facility]) [address] [place] [address] Bjorn Washington MD HCO3 (Bld) [Moles/Vol] 10.4 mmol/L Low 23.0-28.0 L [facility] Comment on above: Performed By: #### L 702.1000 #### Main Laboratory ([facility]) [address] [place] [address] Bjorn Washington MD Oxygen saturation in Blood 91 % Low 95-98 [facility] Comment on above: Performed By: #### L 702.1000 #### Main Laboratory ([facility]) [address] [place] [address] jBorn Washington MD Unit Notified? Yes Normal [facility] Comment on above: Performed By: #### L 702.1000 #### Main Laboratory ([facility]) [address] [place] [address] Bjorn Washington MD Venous Base Excess -17 mmol/L Low -2-3 [facility] Comment on above: Performed By: #### L 702.1000 #### Main Laboratory ([facility]) [address] [place] [address] Bjorn Washington MD Venous FiO2 21.00 Normal [facility] Comment on above: Performed By: #### L 702.1000 #### Main Laboratory ([facility]) [address] [place] [address] Bjorn Washington MD Venous pCO2 25 mmHg Low 41-51 [facility] Comment on above: Performed By: #### L 702.1000 #### Main Laboratory ([facility]) [address] [place] [id number] Bjorn Washington MD Venous pH 7.22 Low 7.31-7.41 [facility] Comment on above: Performed By: #### L 702.1000 #### Main Laboratory ([facility]) [address] [place] [id number] Bjorn Washington MD Venous pO2 70 mmHg Low 80-105 [facility] Comment on above: Performed By: #### L 702.1000 #### Main Laboratory ([facility]) [address] [place] [address] Bjorn Washington MD Venous blood Amanda indexo n 01-31-2022 Amanda index (BldV+Inhl gas) [Ratio] 21.00 [facility] Work Phone: Venous blood base excess by calculationon 01-31-2022 Base excess Calc (BldV) [Moles/Vol] -17 mmol/L Low -2-3 [facility] Work Phone: Venous blood oxygen saturati on (mass fraction)on 01-31-2022 Oxygen saturation in Venous blood 91 % Low 95-98 [facility] Work Phone: Venous blood partial pressur e of carbon dioxide measurement adjusted to patients actuon 01-31-2022 CO2 adjusted to patient's actual temperature (BldV) [Partial pressure] 25 mmHg Low 41-51 [facility] Work Phone: Venous blood partial pressur e of oxygen measurement with patient temperature corrrecton 01-31-2022 Oxygen adjusted to patient's actual temperature (BldV) [Partial pressure] 70 mmHg Low 80-105 [facility] Work Phone: pH Auto test strip (U)on pH (U) 6.0 [pH] 5.0-8.0 [facility] Work Phone: PAP ACOG PANEL 2: 21 to 29on 06-27-2021 . . Normal [facility] Comment on above: Performed By: #### 4 [id number] #### [facility] [address] [address] [address] Ute Adame Age Gdln ACOG Testing - Normal [facility] Comment on above: Performed By: #### [id number] #### [facility] [address] [address] [address] Ute Adame DIAGNOSIS: Comment Normal [facility] Comment on above: Result Comment: NEGA TIVE FOR INTRAEPITHELIAL LESION OR MALIGNANCY. CELLULAR CHANGES ASSOCIATED WITH INFLAMMATION ARE PRESENT. Performed By: #### [id number] #### [facility] [address] [place] [address] Dr. Ute Adame Methodology: Comment [facility] Comment on above: Result Comment: This liquid based ThinPrep(R) pap test was screened with the use of an image guided system. Performed By: #### [id number] #### [facility] [address] [place] [address] Dr. Ute Adame Note: Comment Normal [facility] Comment on above: Result Comment: The Pap smear is a screening test designed to aid in the detection of premalignant and malignant conditions of the uterine cervix. It is not a diagnostic procedure and should not be used as the sole means of detecting cervical cancer. Both false-positive and false-negative reports do occur. . Performed By: #### 4 [id number] #### [facility] [address] [place] [address] Dr. Ute Adame Performed by: Comment Normal [facility] Comment on above: Result Comment: Danielle Alcaraz, Synthetic Filament Spinner (ASCP) Performed By: #### [id number] #### [facility] [address] [place] [address] Dr. Ute Adame Reflex Criteria: Comment [facility] Comment on above: Result Comment: The HPV DNA reflex criteria were not met with this specimen result therefore, no HPV testing was performed. . Performed By: #### 4 [id number] #### [facility] [address] [place] [address] Dr. Ute Adame Specimen adequacy: Comment [facility] Comment on above: Result Comment: Sati sfactory for evaluation. Endocervical and/or squamous metaplastic cells (endocervical component) are present. Performed By: #### 4 [id number] #### [facility] [address] [place] [address] Dr. Ute Adame Vital Signs Date Time Vital Sign Value Performing Clinician Facility 01-25-2024 15:47-0500 Body mass index (BMI) [Ratio] 28.36 kg/m2 Feli Nguyen DIGITAL STRATEGIST SENIOR MANAGER-DIRECTOR PERSONAL Work Phone: [facility] 01-25-2024 15:47-0500 Body weight 74.93 kg Feli Nguyen DIGITAL STRATEGIST SENIOR MANAGER-DIRECTOR PERSONAL Work Phone: [facility] 01-25-2024 15:47-0500 Diastolic blood pressure 66 mm[Hg] Feli Nguyen DIGITAL STRATEGIST SENIOR MANAGER-DIRECTOR PERSONAL Work Phone: [facility] 01-25-2024 15:47-0500 Heart rate 105 /min Feli Nguyen DIGITAL STRATEGIST SENIOR MANAGER-DIRECTOR PERSONAL Work Phone: [facility] 01-25-2024 15:47-0500 Systolic blood pressure 100 mm[Hg] Feli Nguyen DIGITAL STRATEGIST SENIOR MANAGER-DIRECTOR PERSONAL Work Phone: [facility] 08-02-2023 08:56-0400 Body height 163 cm Feli Nguyen DIGITAL STRATEGIST SENIOR MANAGER-DIRECTOR PERSONAL Work Phone: [facility] 08-02-2023 08:56-0400 Body mass index (BMI) [Ratio] 32.34 kg/m2 Feli Nguyen DIGITAL STRATEGIST SENIOR MANAGER-DIRECTOR PERSONAL Work Phone: [facility] 08-02-2023 08:56-0400 Body weight 85.91 kg Feli Nguyen DIGITAL STRATEGIST SENIOR MANAGER-DIRECTOR PERSONAL Work Phone: [facility] 08-02-2023 08:56-0400 Diastolic blood pressure 75 mm[Hg] Feli Nguyen DIGITAL STRATEGIST SENIOR MANAGER-DIRECTOR PERSONAL Work Phone: [facility] 08-02-2023 08:56-0400 Heart rate 75 /min Feli Nguyen DIGITAL STRATEGIST SENIOR MANAGER-DIRECTOR PERSONAL Work Phone: [facility] 08-02-2023 08:56-0400 Systolic blood pressure 115 mm[Hg] Feli Nguyen DIGITAL STRATEGIST SENIOR MANAGER-DIRECTOR PERSONAL Work Phone: [facility] 03-20-2023 12:42-0500 Body height 163 cm Feli Nguyen DIGITAL STRATEGIST SENIOR MANAGER-DIRECTOR PERSONAL Work Phone: [facility] 03-20-2023 12:42-0500 Body mass index (BMI) [Ratio] 33.84 kg/m2 Feli Nguyen DIGITAL STRATEGIST SENIOR MANAGER-DIRECTOR PERSONAL Work Phone: [facility] 03-20-2023 12:42-0500 Body weight 89.9 kg Feli Nguyen DIGITAL STRATEGIST SENIOR MANAGER-DIRECTOR PERSONAL Work Phone: [facility] 03-20-2023 12:42-0500 Diastolic blood pressure 76 mm[Hg] Feli Nguyen DIGITAL STRATEGIST SENIOR MANAGER-DIRECTOR PERSONAL Work Phone: [facility] 03-20-2023 12:42-0500 Heart rate 87 /min Feli Nguyen DIGITAL STRATEGIST SENIOR MANAGER-DIRECTOR PERSONAL Work Phone: [facility] 03-20-2023 12:42-0500 Systolic blood pressure 122 mm[Hg] Feli Nguyen DIGITAL STRATEGIST SENIOR MANAGER-DIRECTOR PERSONAL Work Phone: [facility] 03-19-2023 13:37-0500 Body mass index (BMI) [Ratio] 33.81 kg/m2 Sandra Castillo PA Work Phone: [facility] 03-19-2023 13:37-0500 Body weight 89.36 kg Sandra Castillo PA Work Phone: [facility] 03-19-2023 13:37-0500 Diastolic blood pressure 74 mm[Hg] Sandra Castillo PA Work Phone: [facility] 03-19-2023 13:37-0500 Systolic blood pressure 122 mm[Hg] Sandra Castillo PA Work Phone: [facility] 02-26-2023 11:16-0500 Body mass index (BMI) [Ratio] 34.31 kg/m2 Chs Risk [facility] 02-26-2023 11:16-0500 Body temperature 98.2 [degF] Chs Risk [facility] 02-26-2023 11:16-0500 Body weight 90.67 kg Chs Risk [facility] 02-26-2023 11:16-0500 Diastolic blood pressure 64 mm[Hg] Chs Risk [facility] 02-26-2023 11:16-0500 Systolic blood pressure 110 mm[Hg] Chs Risk [facility] 02-01-2023 15:31-0500 Body height 162.6 cm Quinton Arita MD Work Phone: [facility] 02-01-2023 15:31-0500 Body mass index (BMI) [Ratio] 36.22 kg/m2 Quinton Arita MD Work Phone: [facility] 02-01-2023 15:31-0500 Body weight 95.71 kg Quinton Arita MD Work Phone: [facility] 02-01-2023 15:31-0500 Diastolic blood pressure 71 mm[Hg] Quinton Arita MD Work Phone: [facility] 02-01-2023 15:31-0500 Heart rate 105 /min Quinton Arita MD Work Phone: [facility] 02-01-2023 15:31-0500 Systolic blood pressure 116 mm[Hg] Quinton Arita MD Work Phone: [facility] 02-01-2022 19:27-0500 Body temperature 98 [degF] Physician None Work Phone: [facility] Work Phone: 02-01-2022 19:27-0500 Diastolic blood pressure 77 mm[Hg] Physician None Work Phone: [facility] Work Phone: 02-01-2022 19:27-0500 Heart rate 75 /min Physician None Work Phone: [facility] Work Phone: 02-01-2022 19:27-0500 Respiratory rate 19 /min Physician None Work Phone: [facility] Work Phone: 02-01-2022 19:27-0500 SaO2% (BldA) [Mass fraction] 99 % Physician None Work Phone: [facility] Work Phone: 02-01-2022 19:27-0500 Systolic blood pressure 133 mm[Hg] Physician None Work Phone: [facility] Work Phone: 02-01-2022 00:16-0500 Body weight 83.2 kg Physician None Work Phone: [facility] Work Phone: 01-31-2022 04:13-0500 Body height 162.56 cm Physician None Work Phone: [facility] Work Phone: 01-31-2022 04:13-0500 Body mass index (BMI) [Ratio] 29.7 kg/m2 Physician None Work Phone: [facility] Work Phone: Encounters Encounter Date Encounter Type Care Provider Facility Start: 08-27-2024 End: 08-27-2024 Emergency department patient visit ARMIDA NICOLE [facility] Start: 04-14-2024 End: 04-14-2024 Refill Poonam Stewart RN [facility] Department of [facility] Comment on above: Type 1 diabetes velma itus during in third trimester; Type 1 diabetes mellitus with hyperglycemia ([facility]) Start: 01-25-2024 End: 01-25-2024 ambulatory FELI NGUYEN [facility] Start: 01-25-2024 End: 01-25-2024 Office outpatient visit 25 minutes Feli Nguyen DIGITAL STRATEGIST SENIOR MANAGER-DIRECTOR PERSONAL Work Phone: [facility] Comment on above: Type 1 diabetes velma itus during in third trimester (Primary Dx); Type 1 diabetes mellitus with hyperglycemia ([facility]); Type 1 diabetes mellitus with hypoglycemia and without coma ([facility]) Start: 09-14-2023 End: 09-14-2023 Telephone encounter Poonam Stewart RN [facility] Comment on above: back up insulin Start: 08-02-2023 End: 08-02-20[facility] Start: 08-02-2023 End: 08-02-2023 Office outpatient visit 25 minutes Feli Presley Meche DIGITAL STRATEGIST SENIOR MANAGER-DIRECTOR PERSONAL Work Phone: [facility] Comment on above: Type 1 diabetes velma itus with hyperglycemia ([facility]) (Primary Dx) Start: 05-07-2023 Telephone encounter Joan Mosqueda RN [facility] Start: 05-07-2023 End: 05-07-2023 ambulatory JOBST SERVICE [facility] Start: 04-16-2023 Telephone encounter Joan Mosqueda RN [facility] Start: 04-16-2023 End: 04-16-2023 ambulatory JOBST SERVICE [facility] Start: 04-12-2023 End: 04-12-[address] [facility] Comment on above: Type 1 diabetes velma itus with hyperglycemia (CMS-HCC) (Primary Dx) Type 1 diabetes velma itus with hyperglycemia (CMS-HCC) Start: 04-05-2023 Refill Shannon Roy [facility] Start: 03-20-2023 End: 03-20-2023 [facility] Start: 03-20-2023 End: 03-20-2023 Office outpatient visit 25 minutes Feli Nguyen DIGITAL STRATEGIST SENIOR MANAGER-DIRECTOR PERSONAL Work Phone: [facility] Comment on above: Type 1 diabetes velma itus with hyperglycemia ([facility]) (Primary Dx) Start: 03-19-2023 End: 03-19-2023 ambulatory SANDRA CASTILLO Not Available Start: 03-19-2023 End: 03-19-2023 Postop follow up visit related to original px Sandra CALDERÓN Work Phone: [facility] Comment on above: Postop check; 6 weeks follow-up; S/P section Start: 02-26-2023 End: 02-26-2023 care visit [facility] Comment on above: care and examination (Primary Dx) Start: 02-26-2023 End: 02-26-2023 ambulatory RO TABARES [facility] Start: 02-23-2023 Encounter Community Services Work Phone: [facility] 3E NICU Start: 02-20-2023 End: 02-20-2023 Evaluation and management of inpatient LASHAE FRANKLIN [facility] Start: 02-20-2023 Encounter Community Services Work Phone: [facility] 3E NICU Start: 02-16-2023 End: 02-20-2023 Evaluation and management of inpatient YESSY RIVERO [facility] Start: 02-04-2023 End: 02-04-2023 Evaluation and management of inpatient RO C EDUARDO [facility] Start: 02-01-2023 End: 02-10-2023 Evaluation and management of inpatient SOPHIE HUDSON [facility] Start: 02-01-2023 End: 02-01-2023 Office outpatient visit 25 minutes Quinton Arita MD Work Phone: [facility] Comment on above: Pre-existing type 1 diabetes mellitus during in third trimester (Primary Dx); History of stillbirth in patient in third trimester, antepartum; History of delivery affecting ; Mild intermittent asthma without complication; 33 weeks gestation of Start: 02-01-2023 End: 02-01-2023 ambulatory QUINTON ARITA [facility] Comment on above: Pre-existing type 1 diabetes mellitus during in third trimester (Primary Dx); History of stillbirth in patient in third trimester, antepartum Start: 01-31-2023 End: 01-31-2023 ambulatory LINDA OLY Not Available Start: 01-17-2023 End: 01-17-2023 ambulatory SANDRA CASTILLO Not Available Start: 01-03-2023 End: 01-03-2023 ambulatory LINDA OLY Not Available Start: 12-20-2022 End: 12-20-2022 ambulatory SANDRA CASTILLO Not Available Start: 01-31-2022 End: 02-01-2022 Evaluation and management of inpatient None Facility:[facility] Start: 01-31-2022 End: 02-01-2022 Evaluation and management of inpatient Physician None Work Phone: [facility] Start: 06-21-2021 End: 06-21-[address] TAMI ALVAREZ Facility:H1 Procedures Date Procedure Procedure Detail Performing Clinician Start: 01-25-2024 Hemoglobin glycosyla juvenal a1c Feli Nguyen DIGITAL STRATEGIST SENIOR MANAGER-DIRECTOR PERSONAL Work Phone: Start: 01-25-2024 Follow-up visit Follow-up FELI NGUYEN Start: 01-25-2024 Adult depression screening assessment Feli Nguyen DIGITAL STRATEGIST SENIOR MANAGER-DIRECTOR PERSONAL Work Phone: Start: 08-02-2023 Hemoglobin glycosyla juvenal a1c Feli Nguyen DIGITAL STRATEGIST SENIOR MANAGER-DIRECTOR PERSONAL Work Phone: Start: 08-02-2023 Follow-up visit Follow-up FELI NGUYEN Start: 08-02-2023 Adult depression screening assessment Feli Nguyen DIGITAL STRATEGIST SENIOR MANAGER-DIRECTOR PERSONAL Work Phone: Start: 03-20-2023 Hemoglobin glycosyla juvenal a1c Feli Nguyen DIGITAL STRATEGIST SENIOR MANAGER-DIRECTOR PERSONAL Work Phone: Start: 03-20-2023 Adult depression screening assessment Feli Nguyen DIGITAL STRATEGIST SENIOR MANAGER-DIRECTOR PERSONAL Work Phone: Start: 02-26-2023 care Care FELI NGUYEN Start: 02-26-2023 Adult depression screening assessment Chs Risk Start: 01-30-2023 Adult depression screening assessment Anjali Andino SPOOL TENDER Start: 09-20-2022 Microscopic observat ion [Identifier] in Cervix by Cyto stain Janiazeferino Crouches SPOOL TENDER Start: 01-31-2022 Blood count hemoglobin Comment on above: Order Comment: Urine Source Urine, Clean Catch Performed By: #### L 400.0202, L400.2200, L400.4800 #### Main Laboratory ([facility]) [address] [place] [address] Bjorn Washington MD Start: 01-31-2022 CT of paranasal sinu ses with contrast Physician None Work Phone: Start: 04-27-2021 Microalbumin [Mass/volume] in Urine by Test strip Anjali Andino SPOOL TENDER Start: 10-24-2019 End: 06-02-2020 H/O: section Previous delivery, antepartum Anjali Andino SPOOL TENDER H/O: section S/P sectio n Sandra CALDERÓN Work Phone: H/O: section History of delivery affecting Quinton Arita MD Work Phone: Plan of Treatment Date Care Activity Detail Author Start: 02-02-2033 DTaP,Tdap and Td Vaccines (10 - Td or Tdap) DTaP,Tdap and Td Vaccines (10 - Td or Tdap) [facility] Start: 03-25-2030 DTaP,Tdap and Td Vaccines (9 - Td or Tdap) DTaP,Tdap and Td Vaccines (9 - Td or Tdap) [facility] Start: 09-20-2025 Screening for malign ant neoplasm of cervix Pap Smear [facility] Start: 01-24-2025 Adult BMI Screening Adult BMI Screen [facility] Start: 01-24-2025 Depression Screening Depression Scre [facility] Start: 01-24-2025 Tobacco Screening Tobacco Screening [facility] Start: 08-20-2024 Adult BMI Screening Adult BMI Screen ing [facility] Start: 08-20-2024 Tobacco Screening Tobacco Screening [facility] Start: 08-01-2024 Adult BMI Screening Adult BMI Screen ing [facility] Start: 08-01-2024 Depression Screening Depression Scre ening [facility] Start: 03-26-2024 Tobacco Screening Tobacco Screening [facility] Start: 03-20-2024 Adult BMI Screening Adult BMI Screen ing [facility] Start: 03-20-2024 Depression Screening Depression Scre ening [facility] Start: 03-20-2024 Tobacco Screening Tobacco Screening [facility] Start: 03-18-2024 End: 03-18-2024 Patient encounter procedure 03/18/2024 2:45 PM EST Office Visit [facility] of [facility] [address] [facility] [facility] [address] [id number] Feli Nguyen, DIGITAL STRATEGIST SENIOR MANAGER-DIRECTOR PERSONAL [address] [place], [place] [id number] [facility] Start: 02-27-2024 Adult BMI Screening Adult BMI Screen ing [facility] Start: 02-27-2024 Depression Screening Depression Scre ening [facility] Start: 02-27-2024 Tobacco Screening Tobacco Screening [facility] Start: 02-20-2024 Tobacco Screening Tobacco Screening [facility] Start: 02-17-2024 Adult BMI Screening Adult BMI Screen ing [facility] Start: 02-02-2024 Adult BMI Screening Adult BMI Screen ing [facility] Start: 02-02-2024 Tobacco Screening Tobacco Screening [facility] Start: 02-02-2024 End: 02-02-2024 US MFM with or without consult US MFM with or without consult Imaging Routine Pre-existing type 1 diabetes mellitus during in third trimester History of stillbirth in patient in third trimester, antepartum Expected: 02/02/2024 (Approximate), Expires: 02/02/2024 [facility] Work Phone: Comment on above: Expected: 02/02/2024 (Approximate), Expires: 02/02/2024 Start: 01-31-2024 Depression Screening Depression Scre [facility] Start: 01-24-2024 Adult BMI Screening Adult BMI Screen ing [facility] Start: 01-24-2024 Tobacco Screening Tobacco Screening [facility] Start: 11-02-2023 End: 11-02-2023 Patient encounter procedure 11/02/2023 9:45 AM EDT Office Visit [facility] [address] [facility] [address], [place] [id number] Feli Nguyen, DIGITAL STRATEGIST SENIOR MANAGER-DIRECTOR PERSONAL [address] [facility] [place], [place] [id number] [facility] Start: 10-07-2023 COVID-19 Vaccine ( season) COVID-19 Vaccine ( season) [facility] Start: 10-07-2023 Influenza vaccination Influenza Vacc ine [facility] Start: 06-18-2023 End: 06-18-2023 Patient encounter procedure 06/18/2023 10:15 AM EDT Office Visit [facility] [address] [facility] [address] [place] [phone] Feli Nguyen, DIGITAL STRATEGIST SENIOR MANAGER-DIRECTOR PERSONAL [address] [facility] [place] [address] [facility] Start: 05-07-2023 End: 05-07-2023 ambulatory 05/07/2023 8:45 AM EDT Support Visit [facility] [address] [facility] [facility] [address] [place] [phone] [facility] Start: 04-16-2023 End: 04-16-2023 ambulatory 04/16/2023 8:00 AM EDT Support Visit [facility] [address] [facility] [facility] [address] [place] [phone] [facility] Start: 04-02-2023 End: 04-02-2023 ambulatory 04/02/2023 1:30 PM EST Visit [facility] [address] [place] [phone] Sandra Castillo PA [address] [place] [address] [facility] Start: 03-20-2023 End: 03-20-2023 Patient encounter procedure 03/20/2023 12:45 PM EST Office Visit [facility] [address] [facility] [address] [place] [phone] Feli Nguyen, DIGITAL STRATEGIST SENIOR MANAGER-DIRECTOR PERSONAL [address] [facility] [place] [address] [facility] Start: 02-26-2023 End: 02-26-2023 ambulatory 02/26/2023 11:15 AM EST Visit [facility] [address] [place] [phone] [facility] Start: 02-21-2023 End: 02-21-2023 Patient encounter procedure 02/21/2023 1:45 PM EST Office Visit [facility] [address] [facility] [address] [place] [phone] Feli Nguyen, DIGITAL STRATEGIST SENIOR MANAGER-DIRECTOR PERSONAL [address] [facility] [place] [address] [facility] Start: 02-19-2023 End: 02-19-2023 Patient encounter procedure 02/19/2023 11:00 AM EST Appointment [facility] [address] [place] [phone] [facility] Start: 02-09-2023 End: 02-09-2023 Patient encounter procedure 02/09/2023 1:30 PM EST Office Visit [facility] [address] [place] [address] April Kumari, DIGITAL STRATEGIST SENIOR MANAGER-DIRECTOR PERSONAL [address] [place] [address] [facility] Start: 02-06-2023 End: 02-06-2023 ambulatory 02/06/2023 1:00 PM EST Initial [facility] [address] [place] [phone] [facility] Start: 02-01-2023 End: 02-01-2023 Patient encounter procedure 02/01/2023 3:00 PM EST Office Visit [facility] [address] [place] [phone] Quinton Arita MD [address], [address] [place] [address] [facility] Start: 10-06-2022 COVID-19 Vaccine ( season) COVID-19 Vaccine () [facility] Start: 10-06-2022 Influenza vaccination Influenza Vacc ine [facility] Start: 04-27-2022 Urine screening for protein Urine Microalbumin [facility] Start: 02-01-2022 [facility] Work Phone: Start: 02-01-2022 Patient discharge [facility] Work Phone: Start: 02-01-2022 Patient transfer [facility] Work Phone: Start: 01-31-2022 Referral to ear, nos e and throat service [facility] Work Phone: Start: 01-31-2022 End: 01-31-2022 [facility] Work Phone: Start: 01-31-2022 Notification of physician [facility] Work Phone: Start: 01-31-2022 Catheterization of vein [facility] Work Phone: Start: 01-31-2022 Hospital admission, emergency, from emergency room [facility] Work Phone: Start: 01-31-2022 Vital signs measurements [facility] Work Phone: Start: 2018 Adult BMI Follow Up Plan Adult BMI Follow Up Plan [facility] Start: 2018 Diabetic foot examination Diabetic Foot Exam [facility] Start: 2000 COVID-19 Vaccine (#1) COVID-19 Vacci ne (#1) [facility] Start: 2000 Glaucoma screening Diabetic Op hthalmology Exam [facility] Start: 2000 Tobacco Counseling Tobacco Counselin g [facility] Bicarbonate [Moles/volume] in Blood [facility] Work Phone: End: 08-01-2024 Creatinine includes GFR, serum Creatinine includes GFR, serum Lab Routine Type 1 diabetes mellitus with hyperglycemia ([facility]) 1 Occurrences starting 08/02/2023 until 08/01/2024 [facility] Comment on above: 1 Occurrences starti ng 08/02/2023 until 08/01/2024 [employer], blood [facility] Work Phone: End: 08-01-2024 Lipid 1996 panel - Serum or Plasma Lipid profile Lab Routine Type 1 diabetes mellitus with hyperglycemia ([facility]) 1 Occurrences starting 08/02/2023 until 08/01/2024 [facility] Work Phone: Comment on above: 1 Occurrences starti ng 08/02/2023 until 08/01/2024 Measurement of venou s partial pressure of carbon dioxide [facility] Work Phone: Measurement of venou s partial pressure of oxygen [facility] Work Phone: Methicillin resistan t Staphylococcus aureus (MRSA) DNA [Presence] in Unspecified specimen by ROQUE with probe detection [facility] Work Phone: Methicillin resistan t Staphylococcus aureus [Presence] in Unspecified specimen by Organism specific culture [facility] Work Phone: End: 08-01-2024 Microalbumin - Albumin: Creatinine Urine Ratio Microalbumin - Albumin: Creatinine Urine Ratio Lab Routine Type 1 diabetes mellitus with hyperglycemia ([facility]) 1 Occurrences starting 08/02/2023 until 08/01/2024 [facility] [employer] Comment on above: 1 Occurrences starti ng 08/02/2023 until 08/01/2024 Oxygen saturation in Venous blood [facility] Work Phone: Patient Education Tooth Abscess (DC) Diabetic Ketoacidosis (DC) [facility] Work Phone: Patient referral [facility] Work Phone: End: 08-01-2024 Thyrotropin [Units/volume] in Serum or Plasma TSH Lab Routine Type 1 diabetes mellitus with hyperglycemia ([facility]) 1 Occurrences starting 08/02/2023 until 08/01/2024 [facility] Comment on above: 1 Occurrences starti ng 08/02/2023 until 08/01/2024 End: 08-01-2024 Thyroxine (T4) free [Mass/volume] in Serum or Plasma T4, free Lab Routine Type 1 diabetes mellitus with hyperglycemia ([facility]) 1 Occurrences starting 08/02/2023 until 08/01/2024 [facility] Comment on above: 1 Occurrences starti ng 08/02/2023 until 08/01/2024 Vancomycin resistanc e Francisco gene [Presence] by Molecular method [facility] Work Phone: Immunizations Immunization Date Immunization Notes Care Provider Qamar calhoun 02-02-2023 influenza, injectabl e, quadrivalent, preservative free [facility] Work Phone: [facility] 02-02-2023 tetanus toxoid, redu jonathan diphtheria toxoid, and acellular pertussis vaccine, adsorbed [facility] Work Phone: [facility] 02-02-2023 influenza virus vacc ine, unspecified formulation [facility] 04-20-2020 measles, mumps and rubella virus vaccine Anjali Sina [facility] 03-25-2020 tetanus toxoid, redu jonathan diphtheria toxoid, and acellular pertussis vaccine, adsorbed Anjali Andino [facility] 10-24-2019 influenza, injectabl e, quadrivalent, preservative free [facility] 10-24-2019 influenza virus vacc ine, unspecified formulation Anjali Andino [facility] 11-22-2018 influenza, injectabl e, quadrivalent, preservative free [facility] 03-22-2018 influenza virus vacc ine, unspecified formulation [facility] 03-20-2018 influenza, injectabl e, quadrivalent, preservative free [facility] 11-28-2016 influenza, injectabl e, quadrivalent, preservative free [facility] 11-28-2016 meningococcal polysaccharide (groups A, C, Y and W-135) diphtheria toxoid conjugate vaccine (MCV4P) [facility] 09-27-2015 hepatitis A vaccine, pediatric/adolescent dosage, 2 dose schedule [facility] 09-27-2015 Human Papillomavirus 9-valent vaccine [facility] 03-03-2014 Human Papillomavirus 9-valent vaccine [facility] 03-03-2014 tetanus toxoid, redu jonathan diphtheria toxoid, and acellular pertussis vaccine, adsorbed [facility] 12-02-2012 influenza, seasonal, injectable, preservative free [facility] 07-24-2012 hepatitis A vaccine, pediatric/adolescent dosage, 2 dose schedule [facility] 07-24-2012 meningococcal polysaccharide (groups A, C, Y and W-135) diphtheria toxoid conjugate vaccine (MCV4P) [facility] 07-24-2012 tetanus toxoid, redu jonathan diphtheria toxoid, and acellular pertussis vaccine, adsorbed [facility] 09-15-2004 diphtheria, tetanus toxoids and acellular pertussis vaccine [facility] 09-15-2004 measles, mumps and rubella virus vaccine [facility] 09-15-2004 poliovirus vaccine, inactivated [facility] 04-16-2002 diphtheria, tetanus toxoids and acellular pertussis vaccine, unspecified formulation [facility] 04-16-2002 haemophilus influenz ae type b vaccine, conjugate unspecified formulation [facility] 04-16-2002 hepatitis B vaccine, pediatric or pediatric/adolescent dosage [facility] 04-16-2002 measles, mumps and rubella virus vaccine [facility] 04-16-2002 poliovirus vaccine, unspecified formulation [facility] 2000 diphtheria, tetanus toxoids and acellular pertussis vaccine, unspecified formulation [facility] 2000 haemophilus influenz ae type b conjugate and Hepatitis B vaccine [facility] poliovirus vaccine, inactivated [facility] 2000 diphtheria, tetanus toxoids and acellular pertussis vaccine, unspecified formulation [facility] pneumococcal conjuga te vaccine, 7 valent [facility] 2000 diphtheria, tetanus toxoids and acellular pertussis vaccine, unspecified formulation [facility] 2000 haemophilus influenz ae type b conjugate and Hepatitis B vaccine [facility] 2000 pneumococcal conjuga te vaccine, 7 valent [facility] 2000 poliovirus vaccine, inactivated [facility] Payers Date Payer Category Payer Medicaid HMO [facility] [id number] 2022 Private Health Insurance [facility] [id number] 2022-Present [phone] [address] [place] [id number] 2021 Medicaid [id number] 2021 Medicaid [id number] 2017 [employer]aged [employer] - Other ANTHEM [id number] 2017 Unknown [id number]. [id number]. [id number] 2000 Unknown [id number] 2.16.840.1.590637.3.579. 2.593 2000 Unknown [id number] 2.16.840.1.976243.3.579. 2.1259 2000 Unknown [id number] 2.16.840.1.463720.3.579. 2.1259 2000 Unknown [id number] 2.16.840.1.082232.3.579. 2.1259 2000 Unknown [id number] 2.16.840.1.303509.3.579. 2.1259 2000 Unknown [id number] 2.16.840.1.675390.3.579. 2.1259 2000 Unknown [id number] 2.16.840.1.685280.3.579. 2.1286 2000 Unknown [id number] 2.16.840.1.934713.3.579. 2.1286 2000 Unknown [id number] 2.16.840.1.495758.3.579. 2.1286 2000 Unknown [id number] 2.16.840.1.630484.3.579. 2.1286 2000 Unknown [id number] 2.16.840.1.702492.3.579. 2.1286 2000 Unknown [id number] 2.16.840.1.328980.3.579. 2.1286 2000 Unknown [id number] 2.16.840.1.583401.3.579. 2.1286 2000 Unknown [id number] 2.16.840.1.319843.3.579. 2.6 2000 Unknown [id number] 2.16.840.1.262365.3.579. 2.1286 2000 Unknown [id number] 2.16.840.1.000548.3.579. 2.1286 2000 Unknown [id number] 2.16.840.1.176080.3.579. 2.1286 1959 Unknown [id number] 1959 Unknown [id number] Self-pay Unknown [id number] 2.16.840.1.877149.3.579. 2.139 Social History Date Type Detail Facility Start: 01-31-2022 [facility] (finding) [facility] Work Phone: Start: 01-31-2022 None [facility] Work Phone: Start: 01-31-2022 < 1 pack per day [facility] Work Phone: Start: 01-31-2022 Yes [facility] Work Phone: Start: 01-31-2022 Nicotine [facility] Work Phone: Start: 2000 Sex Assigned At Female N [facility] Start: 09-05-2022 [facility] History of tobacco use [facility] Start: 02-17-2020 End: 09-05-2022 Cigarettes smoked current (pack per day) - Reported 0.3 [facility] Start: 03-19-2023 End: 01-25-2024 Alcohol intake Ex-drinker (finding) [facility] Start: 02-17-2020 End: 03-19-2023 Tobacco use panel [facility] Start: 09-05-2022 Tobacco Comment 5 or less cigs / day; started smoking at 16yoThinking about quitting [facility] Start: 06-19-2022 Alcohol Comment Denies alcohol use N [facility] Start: 05-13-2018 Gender identity Identifies as female gender (finding) [facility] Start: 05-13-2018 Sexual orientation Heterosexual (fin ding) [facility] Start: 02-01-2023 Tobacco smoking stat [facility] Smokes tobacco daily [facility] History of tobacco use [facility] Start: 07-22-2022 End: 02-01-2023 Tobacco use and exposure Smokeless tobacco non-user [facility] Do you belong to any clubs or organizations such as islam groups, unions, fraternal or athletic groups, or school groups? No [facility] Are you now , , , , never or living with a partner? Never [facility] How hard is it for y ou to pay for the very basics like food, housing, medical care, and heating Not hard at all [facility] Do you feel stress - tense, restless, nervous, or anxious, or unable to sleep at night because your mind is troubled all the time - these days [OSQ] Not at all [facility] The thought of jennifer patten myself has occurred to me Never [facility] Start: 12-18-2018 Alcohol Comment occassional [facility] Start: 09-10-2014 Sex Female (finding) [facility] Start: 07-22-2022 Tobacco smoking stat us IAIS Ex-smoker [facility] History of tobacco use Current smoker [facility] Start: 06-23-2022 [facility] NEGATED: Highlighted row [facility] Work Phone: Medical Equipment Procedure Code Equipment Code Equipment Origin al Text Equipment Identifier Dates 1 strip by miscellaneous route every 4 (four) hours as needed (illness or hyperglycemia). [id number] Start: 08-30-2022 1 Lancet by miscellaneous route 5 (five) times a day. [id number] Start: 01-25-2024 End: 04-14-2024 1 strip by other route 5 (five) times a day for 30 days. [id number] Start: 01-25-2024 End: 02-24-2024 5 injections daily [id number] Start: 01-25-2024 End: 04-14-2024 5 injections daily [id number] Start: 03-26-2023 End: 01-25-2024 Use as directed with insulin pens up to 5 times daily [id number] Start: 09-14-2023 End: 01-25-2024 Use in case of p ump failure [id number] Start: 09-27-2022 End: 03-20-2023 Accu-Chek Fastcl ix Lancets- Use to test blood glucose 8 times daily as directed. [id number] Start: 08-30-2022 End: 03-20-2023 BD Nettie Pen Need les Use as directed to give insulin injections via insulin pen up to 8 times daily [id number] Start: 05-31-2022 End: 09-14-2023 5 injections daily [id number] Start: 08-30-2022 End: 03-20-2023 1 Lancet by miscellaneous route 5 (five) times a day. [id number] Start: 04-14-2024 5 injections daily [id number] Start: 04-14-2024 Goals Date Patient Goal Desired Activity /State Personal health goal Comment on above: Formatting of this n ote might be different from the original. Evaluation of progress towards goal: Safe dc transition from hospital to home. Functional Status Date Assessment Result Facility 01-31-2022 Functional status Yes [facility] Work Phone: Mental Status Date Assessment Result Facility 01-31-2022 Cognitive function Oriented to P erson, Place and Time [facility] Work Phone: Clinical Notes 01-31-2022 to 04-14-2024 Telephone Encounter - Poonam Stewart RN - 04/14/2024 8:31 AM EDTTelephone Encounter - Poonam Stewart RN - 04/14/2024 8:31 AM Ralph Nguyen APRN-JANE - 01/25/2024 3:45 PM ESTPatient Instructions Note Date & Type Note Facility 04-14-2024 Miscellaneous Notes Savi called stating at last appointment in January new [facility] but when she goes to the pharmacy they tell her they do not have any prescriptions for her. She is running low on supplies / insulin but is not out. Rn stated last prescriptions were sent to [facility], not [facility]. [facility] Please see pended prescriptions. documented in this encounter [facility] 04-14-2024 Telephone encounter Note Savi called stating at last appointment in January new prescriptions were [facility] but when she goes to the pharmacy they tell her they do not have any prescriptions for her. She is running low on supplies / insulin but is not out. Rn stated last prescriptions were sent to [facility], not [facility]. She would like all prescriptions sent to [facility]. Please see pended prescriptions. [facility] 01-25-2024 History of Presen t illness Narrative Images from the original note were not included. Pediatric Endocrinology [place] [address] Privileges with Adia Hendrickson [facility] Subjective History of Present Illness: Savi is a 23 y.o. female who presents for a follow-up evaluation of Type 1 diabetes mellitus. Savi was last seen 08.02.2023. Interim History: Savi Nguyen, a 23-year-old female with type 1 diabetes, presents for a follow-up visit. She is currently managing her diabetes with injections, not using her insulin pump, and is not wearing a continuous glucose monitor (CGM). The patient does not have a blood glucose meter as it was misplaced. Regarding her current situation, Savi reports having contracted COVID-19 in mid-September, which disrupted her diabetes management. She experienced diabetic ketoacidosis (DKA) at the end of October and beginning of November. During her hospitalization, her insulin regimen was changed, and she was advised not to restart her pump. The patient's current A1C is 12.1%. She is in need of a new blood glucose meter, as her daughter has taken her poker and pump. Concerning her diabetes management, Savi is currently taking 40 units of Lantus nightly and has a carb ratio of 1:5, with 1 unit for every 50 over 150. The patient's daughter has been hiding her pump supplies. She has a scheduled dentist visit in December and an eye doctor appointment due in a couple of months. Diabetes History: The initial diagnosis of type 1 diabetes was made in 2012 when the patient presented to [facility] at the age of 12. She had been treated for diabetes mellitus starting in 2011 with oral agents and insulin and was assumed to have type 2 diabetes. 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 Autoimmune antibody results include: ALESSIA 65 = positive, Celiac screen = negative, Thyroid AB = negative, FT 4 = 0.82 ng/dL, TSH = 1.41 uIU/mL, Hgb A1c at diagnosis of T1D = 10.7%. Comprehensive diabetes education was completed as part of the post diagnosis period. Intermittent education has been received a minimum of yearly since diagnosis. Savi does work nights most days of the week. Hyperglycemia Management: Savi And family have been advised to avoid blood glucose values over 250 mg/dL as much as possible. Symptoms of hyperglycemia that are experienced by Savi include: irritable, dry mouth. Insulin is given to correct hyperglycemia as needed. Savi and family respond to high alerts [...] site change, give ketone correction if detected, Zofran is available for nausea or vomiting, provider available fire investigation lieutenant for questions or concerns by calling [phone]. Past admissions for DKA after diagnosis: February 2023. Hypoglycemia Management: Self treated hypoglycemia has been experienced since last follow up. Lowest documented blood glucose value is: unknown mg/dL. Hypoglycemia is treated with fast acting carbohydrate including: juice, fruit candy. Symptoms of hypoglycemia that are experienced by Savi include: shaky, sweaty. Savi and family responds to low alert and urgent low soon alert from CGM system such that severe hypoglycemia is avoided. Past occurrences of severe hypoglycemia requiring emergency medication: none. 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 Diabetes diet consists of carbohydrate counting with flexible carbohydrate intake and no specific dietary limitations. Svai is currently using a continuous subcutaneous insulin infusion pump system. Savi has a t:slim X2 pump with Control IQ that is an automated insulin delivery system that works with the Fon[employer]ax G6 continuous glucose monitoring system (CGM). Pump site is recommended to be changed every 3 days. Savi's pump is in warranty until approximately March 26, 2027. Variations in day-to-day schedule and/or exercise prevent the achievement of successful glycemic management with multiple daily injections (MDI). Savi has experienced overall diabetes management improvement with insulin pump therapy over MDI. Review of Systems: Diabetes: denies excessive thirst, [...] denies excessive dry skin. Female only: LMP 11.29.2023, age of menarche 10. Dental care: routinely [...] thrombocytopenic purpura Hx of in childhood Obesity Pre-existing type 1 diabetes mellitus during in third trimester 10/26/2022 Pre-gestational/ Early Gestational Diabetes Checklist Pre- regimen Lieutenant Shift Supervisor/PCP: Referring Provider Ongoing OB care: Seen by MFM Age at diagnosis Social info/admits/barrier White classification A1c T1: T2: T3: Tobacco Daily smoker, 1/2ppd Maternal echo/ECG (>35 , DM > 10 y, HTN) r 07/05/2022 Type 1 diabetes mellitus affecting in third trimester, antepartum 02/02/2023 UTI (urinary tract infection) Hx of Social History Social History Narrative Lives with family. No Known Allergies Current Outpatient Medications Medication Sig Dispense Refill alcohol swabs pads, medicated Use as directed prior to insulin injections 150 each 11 glucagon HCL (GLUCAGON, HCL, EMERGENCY KIT) 1 mg recon soln Inject 1 mg as directed as needed (severe hypoglycemia or seizure). 2 each 1 ibuprofen (MOTRIN) 800 mg tablet Take 1 tablet (800 mg total) by mouth every 8 (eight) hours as needed for pain. 30 tablet 0 insulin glargine (LANTUS SOLOSTAR U-100 INSULIN) 100 unit/mL (3 mL) insulin pen Use as directed up to 50 units daily when NOT wearing insulin pump 15 mL 5 insulin lispro (HumaLOG U-100 Insulin) 100 unit/mL injection Use as directed in insulin pump up to 66 units per day. 20 mL 12 insulin lispro (HumaLOG) 100 unit/mL insulin pen Inject 7 Units under the skin daily with lunch. 15 mL 12 insulin lispro (HumaLOG) 100 unit/mL insulin pen Inject 9 Units under the skin daily with dinner. 15 mL 12 insulin lispro (HumaLOG) 100 unit/mL insulin pen Use as directed up to 100 units daily for carb coverage and blood glucose correction when NOT wearing insulin pump 30 mL 12 pen needle, diabetic (BD NETTIE 2ND GEN PEN NEEDLE) 32 gauge x 5/32 needle 5 injections daily 150 each 11 pen needle, diabetic (BD NETTIE 2ND GEN PEN NEEDLE) 32 gauge x 5/32 needle Use as directed with insulin pens up to 5 times daily 150 each 11 acetaminophen (TYLENOL EXTRA STRENGTH) 500 mg tablet Take 2 tablets (1,000 mg total) by mouth every 8 (eight) hours as needed for pain. (Patient not taking: Reported on 01/25/2024) 30 tablet 0 acetone, urine, test strip 1 strip by miscellaneous route every 4 (four) hours as needed (illness or hyperglycemia). (Patient not taking: Reported on 01/25/2024) 100 strip 3 blood-glucose meter (ONETOUCH VERIO REFLECT METER) misc 1 Device by miscellaneous route in the morning. (Patient not taking: Reported on 01/25/2024) 1 each 1 blood-glucose sensor (DEXCOM G7 SENSOR) device Change sensor every 10 days (Patient not taking: Reported on 01/25/2024) 3 each 11 drospirenone, contraceptive, 4 mg (28) tablet Take 4 mg by mouth in the morning. (Patient not taking: Reported on 01/25/2024) 84 tablet 3 No current facility-administered medications for this visit. Objective Vitals: 01/25/24 1547 BP: 100/66 Pulse: 105 Growth %ile SmartLinks can only be used for patients less than 20 years old. Wt Readings from Last 3 Encounters: 01/25/24 74.9 kg (165 lb 3.2 oz) 08/21/23 87.1 kg (192 lb) 08/02/23 85.9 kg (189 lb 6.4 oz) Ht Readings from Last 3 Encounters: 08/21/23 162.6 cm (5' 4 ) 08/02/23 163 cm (5' 4.17 ) 03/20/23 163 cm (5' 4.17 ) Body mass index is 28.36 kg/m . Pump Summary: Physical Exam: GENERAL APPEARANCE: Awake alert and oriented in no acute distress, No syndromic or dysmorphic features. HEAD: normocephalic, atraumatic, No facial rounding. SKIN: no vitiligo noted, no lipohypertrophy. HAIR: normal hair pattern,no hirsutism. EYES: PERRL, extraocular movement full and smooth, no exophthalmos present, no lid retraction noted. NOSE: nares patent, no discharge. MOUTH/JAW: normal, good dentition, mucosa moist, palate normal. THROAT: clear, no exudate. NECK: symmetrical, No tracheal deviation. THYROID: normal size, no [...] with exam. Lab Results Component Value Date [id number] 12.1 (A) 01/25/2024 [id number] 12.7 (A) 08/02/2023 [id number] 6.8 03/20/2023 Plan ASSESSMENT AND PLAN: The following portions of the patient's history were reviewed and updated as appropriate: allergies, current medications, past family history, past medical history, past social history, past surgical history, problem list, and medication reconciliation was completed including current medication and post discharge medication. Assess/Plan SmartLinks: Savi was seen today for follow-up. Diagnoses and all orders for this visit: Type 1 diabetes mellitus during in third trimester Type 1 diabetes mellitus with hyperglycemia ([facility]) - POCT Hemoglobin A1c Type 1 diabetes mellitus with hypoglycemia and without coma ([facility]) Savi Nguyen, a 23-year-old female with type 1 diabetes, is currently managing her condition with insulin injections after discontinuing her insulin pump due to interference from her daughter. She has a recent history of DKA and a current A1C of 12%, indicating poor glycemic control. She needs a new blood glucose meter and ketone strips, and her current regimen includes 40 units of Lantus nightly with a carb ratio of 1:5. Plans include restarting her insulin pump, reinitiating CGM, and refilling her diabetes supplies. Follow-up is scheduled in 6 weeks, with a transition to adult endocrinology once stabilized. Plan 1. Type 1 Diabetes Mellitus with Hyperglycemia: - 23-year-old female not currently using insulin pump or CGM, without a blood glucose meter. - Recent DKA episode in late October/early November, resulting in transition from pump to multiple daily injections. - Current A1C is 12%, indicating poor glycemic control. - Current insulin regimen: Lantus 40 units nightly, carbohydrate ratio 1:5, correction 1 unit per 50 mg/dL over 150 mg/dL. - Plan: a. Restart insulin pump therapy b. Reinitiate continuous glucose monitoring (CGM) c. Provide new blood glucose meter and ketone strips d. Refill Lantus, pen needles, and other diabetes supplies e. Maintain current insulin regimen f. Follow-up in 6 weeks g. Transition to adult endocrinology provider once stabilized 2. Contraception Management: - Reorder control prescription 3. Routine Health Maintenance: - Recent dental visit in December - Schedule ophthalmology appointment in 2 months Pump sites used: Autosoft XC, Tubing length = 23, Cannula length = 6 mm, Color = morris. Insulin Pump Settings: Time Basal Rate (u/hr) Correction Factor (u:mg/dL) Carb Ratio (u:grams) Target BG (mg/dL) 12:00am 0.750 50 5 120 Total Daily Basal: 18 Insulin Action Duration: 3 hrs Insulin injection plan: Long Acting/Basal: Lantus, 10 units daily. [...] scale: Trace: give 0.5 additional unit/units with correction. Small: give 0.5 additional unit/units with correction. Moderate: give 1 additional unit/units with correction. Large: give 1.5 additional unit/units with correction. Sick day plan: Consider a site malfunction and urgent site change immediately throughout the sick day plan. Also, consider insulin by injection at anytime in this plan if you feel the pump site is not working well. If nausea or vomiting give Zofran. If vomiting occurs more than 2 times after giving Zofran or unable to tolerate fluids, call the office at [phone]. If after office hours call [phone] for fire investigation lieutenant nurse. Check for ketones. If ketones are present, see ketone scale below for additional insulin to be given every 3 hours. Increase fluid intake, if vomiting start with 3-5 mL of fluid every 5-10 minutes and gradually increase until tolerating regular amount of fluids. If ketones are moderate or large x3 checks in a row call the office or after hours. If you need an excuse for missed [...] as well as comprehensive diabetes education with a ALFONSO at the [facility] Diabetes Education department. Savi and family [...] self-monitoring and insulin regimens to optimize care. Not currently using CGM. SUSANNA Estrada 01/25/24 1630 documented in this encounter [facility] 09-14-2023 Miscellaneous Notes Patient called stating they are going on a cruise tomorrow and need back up insulin to take with. Please see pended prescriptions. RN offered travel letter but patient declined. RN also offered to reviewed insulin back up plan but patient states she knows it. All set. documented in this encounter [facility] 09-14-2023 Telephone encounter Note Patient called stating they are going on a cruise tomorrow and need back up insulin to take with. Please see pended prescriptions. RN offered travel letter but patient declined. RN also offered to reviewed insulin back up plan but patient states she knows it. [facility] 09-14-2023 Telephone encounter Note All set. [facility] 08-02-2023 History of Presen t illness Narrative Images from the original note were not included. Subjective History of Present Illness: Savi is a 23 y.o. female who presents for a follow-up evaluation of Type 1 diabetes mellitus. Savi was last seen 2.13.2024. Interim History: Savi has started her new pump since her last visit. She is doing well on the pump, but has had some issues with Dexcom G7 sticking. We reviewed insertion technique as well as how to report a failed sensor today and the importance of keeping the manufacturing information for her current sensor. We also talked about adhesives and adjuncts to help it stay adhered to the skin better. Diabetes History: The initial diagnosis of type 1 diabetes was made in 2012 when the patient presented to [facility] at the age of 12. She had [...] over 250 mg/dL as much as possible. Symptoms of hyperglycemia that are experienced by Savi include: irritable, dry mouth. Insulin is given to correct hyperglycemia as needed. Savi and family respond to high alerts [...] available for nausea or vomiting, provider available fire investigation lieutenant for questions or concerns by calling [phone]. Past admissions for DKA after diagnosis: oneFebruary 2023. Hypoglycemia Management: Self treated hypoglycemia has been experienced since last follow up. Lowest documented blood glucose value is: <70 mg/dL. Hypoglycemia is treated with fast acting carbohydrate including: juice, fruit candy. Symptoms of hypoglycemia that are experienced by Savi include: shaky, sweaty. Savi and family responds to low alert and urgent low soon alert from CGM system such that severe hypoglycemia is avoided. Past occurrences of severe hypoglycemia requiring emergency medication: none. 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 Diabetes diet consists of carbohydrate counting with flexible carbohydrate intake and no specific dietary limitations. Savi is currently using a continuous subcutaneous insulin infusion pump system. Savi has a t:slim X2 pump with Control IQ that is an automated insulin delivery system that works with the [employer] G6 continuous glucose monitoring system (CGM). Pump site is changed every 4.6 days. [place] pump is in warranty until approximately March 26, 2027. Variations in day-to-day schedule and/or exercise prevent the achievement of successful glycemic management with multiple daily injections (MDI). Savi has experienced overall diabetes management improvement with insulin pump therapy over MDI. Pump sites used: Autosoft XC, Tubing length = 23, Cannula length = 6mm, Color = morris. Insulin Pump Settings: Time Basal Rate (u/hr) Correction Factor (u:mg/dL) Carb Ratio (u:grams) Target BG (mg/dL) 12:00am 0.750 50 5 120 Total Daily Basal: 18 Insulin Action Duration: 3 hrs Review of Systems: Diabetes: denies excessive thirst, [...] denies excessive dry skin. Female only: LMP 6.11.2023, age of menarche 10. Dental care: routinely sees dentist twice a year. Eye care: routine dilated eye exam reported in last 12 months. Foot care: routine examination by patient of foot health is completed regularly. Other systems: 14 point ROS negative except as detailed in HPI Past Medical History: Diagnosis Date Anemia Hx of Asthma Chronic ITP (idiopathic thrombocytopenic purpura) ([facility]) Diabetes type 1, controlled ([facility] [...] or hyperglycemia). 100 strip 3 blood-glucose sensor (Gaming Live TV G7 SENSOR) device Change sensor every 10 [...] to prime. 15 mL 5 insulin lispro (HumaLOG U-100 Insulin) 100 unit/mL injection Use as directed in insulin pump up to 66 units per day. 20 mL 12 insulin lispro (HumaLOG) 100 unit/mL insulin pen Inject 7 Units under the skin daily with lunch. 15 mL 12 insulin lispro (HumaLOG) 100 unit/mL insulin pen Inject 9 Units under the skin daily with dinner. 15 mL 12 insulin lispro (HumaLOG) 100 unit/mL insulin pen Use as directed up to 100 units daily using carb ratio of 1:6 and sliding scale of 1:30>130 30 mL 12 pen needle, diabetic (BD NETTIE 2ND GEN PEN NEEDLE) 32 gauge x 5/32 needle BD Nettie Pen [place] Use as directed to give insulin injections via insulin pen up to 8 times daily 300 each 3 pen needle, diabetic (BD NETTIE 2ND GEN PEN NEEDLE) 32 gauge x 5/32 needle 5 injections daily 150 each 11 acetaminophen (TYLENOL EXTRA STRENGTH) 500 mg tablet Take 2 tablets (1,000 mg total) by mouth every 8 (eight) hours as needed for pain. (Patient not taking: Reported on 02/26/2023) 30 tablet 0 blood-glucose meter (ONETOUCH VERIO REFLECT METER) misc 1 Device by miscellaneous route in the morning. (Patient not taking: Reported on 11/14/2022) 1 each 1 drospirenone, contraceptive, 4 mg (28) tablet Take 4 mg by mouth in the morning. (Patient not taking: Reported on 02/26/2023) 84 tablet 3 No current facility-administered medications for this visit. Objective Vitals: 08/02/23 0856 BP: 115/75 Pulse: 75 Growth %ile SmartLinks can only be used for patients less than 20 years old. Wt Readings from Last 3 Encounters: 08/02/23 85.9 kg (189 lb 6.4 oz) 03/20/23 89.9 kg (198 lb 3.2 oz) 02/26/23 90.7 kg (199 lb 14.4 oz) Ht Readings from Last 3 Encounters: 08/02/23 163 cm (5' 4.17 ) 03/20/23 163 cm (5' 4.17 ) 02/16/23 162.6 cm (5' 4 ) Body mass index is 32.34 kg/m . Pump Summary: Physical Exam: GENERAL APPEARANCE: Awake alert and [...] with exam. Lab Results Component Value Date [id number] 12.7 (A) 08/02/2023 [id number] 6.8 03/20/2023 [id number] 5.9% 01/23/2023 Plan ASSESSMENT AND PLAN: The following portions of the patient's history were reviewed and updated as appropriate: allergies, current medications, past family history, past medical history, past social history, past surgical history, problem list, and medication reconciliation was completed including current medication and post discharge medication. Assess/Plan SmartLinks: Savi was seen today for follow-up. Diagnoses and all orders for this visit: Type 1 diabetes mellitus with hyperglycemia ([facility]) - POCT Hemoglobin A1c - Lipid profile; Future - T4, free; Future - TSH; Future - Creatinine includes GFR, serum; Future - Microalbumin - Albumin: Creatinine Urine Ratio; Future 1. Medications changes: none 2. Education topics discussed in visit: pre-meal bolusing , Hb A1c result and interpretation, and dexcom G7 insertion and how to report a sensor failure 3. Follow up in 3 months time with myself. 4. Annual labs Due, ordered today. Long Acting/Basal: Lantus, 10 units daily. Rapid [...] scale: Trace: give 0.5 additional unit/units with correction. Small: give 0.5 additional unit/units with correction. Moderate: give 1 additional unit/units with correction. Large: give 1.5 additional unit/units with correction. Sick day plan: Consider a site malfunction and urgent site change immediately throughout the sick day plan. Also, consider insulin by injection at anytime in this plan if you feel the pump site is not working well. If nausea or vomiting give Zofran. If vomiting occurs more than 2 times after giving Zofran or unable to tolerate fluids, call the office at [phone]. If after office hours call [phone] for fire investigation lieutenant nurse. Check for ketones. If ketones are present, see ketone scale below for additional insulin to be given every 3 hours. Increase fluid intake, if vomiting start with 3-5mL of fluid every 5-10 minutes and gradually increase until tolerating regular amount of fluids. If ketones are moderate or large x3 checks in a row call the office or after hours. If you need an excuse for missed [...] as well as comprehensive diabetes education with jo-ann HAMILTON at the [facility] Diabetes Education department. Savi and family [...] self-monitoring and insulin regimens to optimize care. Dates of Sensor review: 07.20.2023 through 08.02.2023. Date of Printout: 08.02.2023. Avg CGM 199 mg/dL for 14 days. 53% above target over 14 days. 46% in target range over 14 days. <1% below target over 14 days. There is a pattern of 11am to 3pm and from 5pm to 11pm. Insulin dosing adjustments were made based on these interpretations. SUSANNA Estrada 08/02/23 1104 documented in this encounter [facility] [employer] 08-02-2023 Instructions SUSANNA Estrada - 08/02/2023 8:45 AM EDT Images from the original note were not included. 1. Medications changes: none 2. Education topics discussed in visit: pre-meal bolusing , Hb A1c result and interpretation, and dexcom G7 insertion and how to report a sensor failure 3. Follow up in 3 months time with myself. 4. Annual labs Due, ordered today. Long Acting/Basal: Lantus, 10 units daily. Rapid [...] scale: Trace: give 0.5 additional unit/units with correction. Small: give 0.5 additional unit/units with correction. Moderate: give 1 additional unit/units with correction. Large: give 1.5 additional unit/units with correction. Sick day plan: Consider a site malfunction and urgent site change immediately throughout the sick day plan. Also, consider insulin by injection at anytime in this plan if you feel the pump site is not working well. If nausea or vomiting give Zofran. If vomiting occurs more than 2 times after giving Zofran or unable to tolerate fluids, call the office at [phone]. If after office hours call [phone] for fire investigation lieutenant nurse. Check for ketones. If ketones are present, see ketone scale below for additional insulin to be given every 3 hours. Increase fluid intake, if vomiting start with 3-5mL of fluid every 5-10 minutes and gradually increase until tolerating regular amount of fluids. If ketones are moderate or large x3 checks in a row call the office or after hours. If you need an excuse for missed school, please call during normal office hours and state the date and school to send the excuse to for your child. documented in this encounter [facility] 05-07-2023 Miscellaneous Notes Savi presented for her final pump education appointment today. Her pump upload is in media account executive. To note: she ran out of insulin while at work and continued with insulin injections until this morning. Secondly, she lost her sensors at home (believes her daughter hid them). Not in control IQ and manually checking blood sugars. This morning BG was 253. I gave her a sample dexcom g7 sensor today to get back on control IQ. She is linked in [employer] and was instructed to keep the dank open and running. Thank you. documented in this encounter [facility] 05-07-2023 Telephone encounter Note Savi presented for her final pump education appointment today. Her pump upload is in media account executive. To note: she ran out of insulin while at work and continued with insulin injections until this morning. Secondly, she lost her sensors at home (believes her daughter hid them). Not in control IQ and manually checking blood sugars. This morning BG was 253. I gave her a sample dexcom g7 sensor today to get back on control IQ. She is linked in [employer] and was instructed to keep the dank open and running. Thank you. [facility] History of Presen t illness Narrative Insulin Pump Instruct Progress Note Savi Nguyen presented on 05/07/23 for an advanced features training on her insulin pump. The associate professor of art history's Insulin Pump Training Checklist form and the [...] blood sugar check this mornin mg/dL. Her gold miner was unable to see data on tconnect. I double checked that she was linked which she is, however, she was not keeping her dank running in the background. I instructed her to keep it open. Pump was uploaded to media account executive for review. See checklist for details covered. We reviewed bad site protocol, hyperglycemia and hypoglycemia. [facility] [facility] Diabetes and Nutrition Education documented in this encounter [facility] 04-16-2023 Miscellaneous Notes Savi started insulin in her tslim this morning. Blood sugar was 189 and straight across/stable arrow. She is linked through [employer]. I asked that she call into endo office for review in a few days. Her next follow up with your office is not until 06/18/23. Is this acceptable or would you like this moved up? Thank you. Also to note, Savi liked the idea of establishing with Dr. Carbone in [place] when she is transferred to adult care. May is fine. I will keep this open so that I remember to double check she calls in for a review. documented in this encounter [facility] 04-16-2023 Telephone encounter Note Savi started insulin in her tslim this morning. Blood sugar was 189 and straight across/stable arrow. She is linked through [employer]. I asked that she call into endo office for review in a few days. Her next follow up with your office is not until 06/18/23. Is this acceptable or would you like this moved up? Thank you. Also to note, Savi liked the idea of establishing with Dr. Carbone in [place] when she is transferred to adult care. [facility] 04-16-2023 Telephone encounter Note May is fine. I will keep this open so that I remember to double check she calls in for a review. [facility] 04-16-2023 History of Presen t illness Narrative Insulin Pump Instruct Progress Note Savi Nguyen presented on 04/16/23 for an insulin start on her insulin pump. The associate professor of art history's Insulin Pump Training Checklist form and the [...] yes - Savi does not have an gold miner appointment until 06/18/23. I will inquire if this should be moved up. I instructed her to call into endo office weekly until rates are matched to BG needs. She is linked to [facility] through Pediatric Endocrinology office. She plans to call endo office tomorrow or Sunday this week. Has final pump appointment scheduled for 05/07/23. [facility] Diabetes and Nutrition Education documented in this encounter [facility] 04-12-2023 Miscellaneous Notes Savi is starting a t:slim pump. Will need a prescription for Humalog vials please. Preferred pharmacy is [facility]. Max daily dose will be around 60-70 units daily. Her long acting amount is lower but her bolus amounts are large. Thank you! Please see Humalog vial prescription. documented in this encounter [facility] 04-12-2023 Telephone encounter Note Savi is starting a t:slim pump. Will need a prescription for Humalog vials please. Preferred pharmacy is [facility]. Max daily dose will be around 60-70 units daily. Her long acting amount is lower but her bolus amounts are large. Thank you! [facility] 04-12-2023 Telephone encounter Note Please see Humalog vial prescription. [facility] 04-12-2023 History of Presen t illness Narrative Insulin Pump Instruct Progress Note Savi Nguyen presented on 04/12/23 for a saline start on her insulin pump. The associate professor of art history's Insulin Pump Training Checklist form and the [...] verbalized understanding? yes Additional Considerations? no - Savi recalled basics of pump therapy. Used saline to practice cartridge load and site insertion but then detached tubing. Practiced bolus feature. Gave written and verbal instructions on when/how to return with no insulin changes until day of pump appointment 04/15. [facility] Diabetes and Nutrition Education documented in this encounter [facility] 04-05-2023 Miscellaneous Notes Patient has received new Tandem insulin pump and will need training. Please sign pended referral if agreeable for education. Thanks! All set. Thanks documented in this encounter [facility] 04-05-2023 Telephone encounter Note Patient has received new Tandem insulin pump and will need training. Please sign pended referral if agreeable for education. Thanks! [facility] 04-05-2023 Telephone encounter Note All set. Thanks [facility] 04-05-2023 Miscellaneous Notes Pt called saying that they are almost out of Humalog. Pharmacy said they should have 25 days left and would need a new script in order to get more before then. Let me know if you need anything else! documented in this encounter [facility] 04-05-2023 Telephone encounter Note Pt called saying that they are almost out of Humalog. Pharmacy said they should have 25 days left and would need a new script in order to get more before then. Let me know if you need anything else! [facility] 03-20-2023 Miscellaneous Notes Pharmacy called and said they needed sliding scale and specific directions for insulin dosing for current pharmacist to dispense. I have updated script. documented in this encounter [facility] 03-20-2023 Telephone encounter Note Pharmacy called and said they needed sliding scale and specific directions for insulin dosing for current pharmacist to dispense. I have updated script. [facility] 03-20-2023 History of Presen t [...] when the patient presented to [facility] at the age of 12. She had [...] available for nausea or vomiting, provider available fire investigation lieutenant for questions or concerns by calling [phone]. Past admissions for DKA after diagnosis: one. [...] or hyperglycemia). 100 strip 3 blood-glucose sensor (Gaming Live TV G7 SENSOR) device Change sensor every 10 [...] gauge x 5/32 needle BD Nettie Pen [place] Use as directed to give insulin injections via insulin pen up to 8 times daily 300 each 3 acetaminophen (TYLENOL EXTRA STRENGTH) 500 mg tablet Take 2 tablets (1,000 mg total) by mouth every 8 (eight) hours as needed for pain. (Patient not taking: Reported on 02/26/2023) 30 tablet 0 blood-glucose meter (ThinkSuitUCH VERIO REFLECT METER) misc 1 Device by [...] each 11 lancets (ACCU-CHEK FASTCLIX LANCET DRUM) misc Accu-Chek Fastclix Lancets- Use to test blood glucose 8 times daily as directed. (Patient not taking: Reported on 02/01/2023) 306 each 6 pen needle, diabetic (BD NETTIE 2ND GEN PEN NEEDLE) 32 gauge x 5/32 needle 5 injections daily (Patient not taking: Reported on 11/13/2022) 150 each 11 PNV 19-IRON PS,AMGF-BXUBG-ASI ORAL Take 1 tablet by mouth Daily [...] with exam. Lab Results Component Value Date QVYZSWX3K 6.8 03/20/2023 [id number] 5.9% 01/23/2023 EGOIIRS0C 6.7% 11/13/2022 Plan ASSESSMENT AND PLAN: Assessment and Plan: Assess/Plan SmartLinks: Savi was seen today for follow-up. Diagnoses and all orders for this visit: Type 1 diabetes mellitus with hyperglycemia ([facility]) - POCT Hemoglobin A1c 1. Medications changes: [...] pump. Tandem will contact you from a [place] number. Injection insulin plan: Long Acting/Basal: Lantus, [...] to tolerate fluids, call the office at [phone]. If after office hours call [phone] for fire investigation lieutenant nurse. Check for ketones. If ketones are [...] as well as comprehensive diabetes education with jo-ann HAMILTON at the [facility] Diabetes Education department. Savi and family [...] Nguyen Date of : 2000 Generated at: Sun, Mar 26, 2023 8:06 PM EST Reporting [...] SUSANNA Estrada 03/26/232007 documented in this encounter [facility] 03-19-2023 History of Presen t illness Narrative Reason for Appointment: Patient ID: Savi Nguyen is a 22 y.o. female who presents for Post-op Visit (6 week post visit. Delivered c/s 02/16/2023 @ [facility]) Patient presents today for Acute Visit appointment. Current Medications: has a current medication list which includes the following prescription(s): aspirin, insulin glargine, insulin lispro, and pnv plus multivitamin. Medical History: Active Ambulatory Problems Diagnosis Date Noted Anemia 08/03/2022 Diabetic ketoacidosis associated with type 1 diabetes mellitus (HCC) ([facility]) 08/03/2022 Other hammer toe(s) (acquired), unspecified foot 08/03/2022 Type 1 diabetes mellitus ([facility]) 08/03/2022 Type 2 diabetes mellitus without complications ([facility]) 08/03/2022 Resolved Ambulatory Problems Diagnosis Date Noted No Resolved Ambulatory Problems Past Medical History: Diagnosis Date BMI 30.0-30.9,adult Diabetes ([facility]) Diabetes mellitus type 1 ([facility]) DKA, type 1 ([facility]) Encounter for well woman exam with routine gynecological exam 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 02-26-2023 History of Presen t illness Narrative [...] 6 wks Encouraged her to call her gold miner to help manage blood sugars Follow-up with primary OBGYN in [place] for continued post often care She desires pill for contraception, will discuss with her OB in [place] RTC as needed Yessy Rivero DO documented in this encounter [facility] 02-23-2023 Miscellaneous Notes This note was copied from a baby's chart. Met with mom at 's bedside, preparing for discharge. States that she continues to pump for baby, getting about 1oz every 3-4 hours. Denies pain or discomfort with pumping. Encouraged to continue pumping 8-12 times a day to continue establishing supply once baby is home and to call for any outpatient needs. documented in this encounter [facility] 02-23-2023 Obstetrics Note This note was copied from a baby's chart. Met with mom at infant's bedside, preparing for discharge. States that she continues to pump for baby, getting about 1oz every 3-4 hours. Denies pain or discomfort with pumping. Encouraged to continue pumping 8-12 times a day to continue establishing supply once baby is home and to call for any outpatient needs. [facility] 02-20-2023 Miscellaneous Notes This note was copied from a baby's chart. Met with mother at infant's bedside. States she is pumping 1oz q3 [...] to latch again documented in this encounter [facility] 02-20-2023 Obstetrics Note This note was copied [...] take baby off, try to latch again [facility] 02-01-2023 History of Presen t illness Narrative Headache/epigastric pain/blurry vision/swelling? Left hand swelling, no other symptoms Cramping/contractions? No Abnormal vaginal discharge?No Spotting or vaginal bleeding? No Loss of fluid like your water may have broken? No Recent ER visits or hospitalizations? No Any concerns that you would like me to mention to the provider today? Increased concern for nausea and vomiting [facility] Maternal- Medicine Office Visit Note HPI: Savi Nguyen is a 22 y.o. @ 33w6d who is presenting for an office visit regarding Chief Complaint Patient presents with Type 1 DM Hx IUFD Hx C/s Patient Active Problem List Diagnosis Mild intermittent asthma Hemoglobin C trait (CMS-HCC) Iron deficiency anemia, unspecified Iron malabsorption Acute bronchitis Non-intractable vomiting with nausea 12 weeks gestation of Pre-existing type 1 diabetes mellitus during in third trimester Labile blood glucose Hypoglycemia OB History 3 Para 2 Term 1 1 AB 0 Living 1 SAB 0 IAB 0 Ectopic 0 Multiple 0 Live Births 1 Obstetric Comments 2019 IUFD at 37 weeks gestation She reports that she is doing well. She reports normal movements and she denies LOF, contractions, vaginal bleeding, headache, blurry vision, RUQ pain and edema. The primary encounter diagnosis was Pre-existing type 1 diabetes mellitus during in third trimester. Diagnoses of History of stillbirth in patient in third trimester, antepartum, History of delivery affecting , Mild intermittent asthma without complication, and 33 weeks gestation of were also pertinent to this visit. PAST OBSTETRICAL HISTORY: OB History 3 Para 2 Term 1 1 AB 0 Living 1 SAB 0 IAB 0 Ectopic 0 Multiple 0 Live Births 1 Obstetric Comments 2019 IUFD at 37 weeks gestation SURGICAL HISTORY: Past Surgical History: Procedure Laterality Date N/A 10/01/2018 Performed by Radha Reno MD at [facility] OR REPEAT N/A 04/17/2020 Performed by Radha Reno MD at [facility] OR SECTION 04/2020 NO PAST SURGERIES ALLERGIES: No Known Allergies CURRENT MEDICATIONS: Current Outpatient Medications: acetone, urine, test strip, 1 strip by miscellaneous route every 4 (four) hours as needed (illness or hyperglycemia)., Disp: 100 strip, Rfl: 3 aspirin 81 mg chewable tablet, Chew 1 tablet (81 mg total) and swallow in the morning for 220 days., Disp: 30 tablet, Rfl: 5 blood-glucose sensor (DEXCOM G7 SENSOR) device, Change sensor every 10 days, Disp: 3 each, Rfl: 11 glucagon HCL (GLUCAGON, HCL, EMERGENCY KIT) 1 mg recon soln, Inject 1 mg as directed as needed (severe hypoglycemia or seizure)., Disp: 2 each, Rfl: 1 insulin glargine (LANTUS SOLOSTAR U-100 INSULIN) 100 unit/mL (3 mL) insulin pen, 27 units s/q am and 20 units s/q bedtime. 2 units to prime., Disp: 15 mL, Rfl: 5 insulin lispro (HumaLOG) 100 unit/mL insulin pen, Inject 22 units subcutaneously with breakfast, 26 units subcutaneously with lunch and 32 units subcutaneously at dinnertime. 2 units to prime., Disp: 15 mL, Rfl: 12 pen needle, diabetic (BD NETTIE 2ND GEN PEN NEEDLE) 32 gauge x 5/32 needle, BD Nettie Pen [place] Use as directed to give insulin injections via insulin pen up to 8 times daily, Disp: 300 each, Rfl: 3 PNV 19-IRON PS,HYAW-DMJPI-MUP ORAL, Take 1 tablet by mouth Daily at 0700., Disp: , Rfl: blood-glucose meter (ONETOUCH VERIO REFLECT METER) mis, 1 Device by miscellaneous route in the morning. (Patient not taking: Reported on 11/14/2022), Disp: 1 each, Rfl: 1 doxylamine (UNISOM) 25 mg tablet, Take 1 tablet (25 mg total) by mouth nightly as needed for sleep. (Patient not taking: Reported on 12/26/2022), Disp: 30 tablet, Rfl: 12 insulin syr/ndl U100 half yazan (BD INSULIN SYRINGE, HALF UNIT,) 0.3 mL 31 gauge x 5/16 syringe, Use in case of pump failure (Patient not taking: Reported on 11/13/2022), Disp: 100 each, Rfl: 11 lancets (ACCU-CHEK FASTCLIX LANCET DRUM) [facility], Accu-Chek Fastclix Lancets- Use to test blood glucose 8 times daily as directed. (Patient not taking: Reported on 02/01/2023), Disp: 306 each, Rfl: 6 metoclopramide (REGLAN) 10 mg tablet, Take 1 tablet (10 mg total) by mouth 3 (three) times a day. Three times a day before meals (Patient not taking: Reported on 01/23/2023), Disp: 30 tablet, Rfl: 2 pen needle, diabetic (BD NETTIE 2ND GEN PEN NEEDLE) 32 gauge x 5/32 needle, 5 injections daily (Patient not taking: Reported on 11/13/2022), Disp: 150 each, Rfl: 11 pyridoxine, vitamin B6, (B-6) 25 mg tablet, Take 1 tablet (25 mg total) by mouth in the morning. (Patient not taking: Reported on 12/26/2022), Disp: 30 tablet, Rfl: 0 LABS: Lab Results Component Value Date MICROALBUR 2.0 (H) 04/27/2021 LDLCALC 98 04/27/2021 CREATININE 0.52 11/17/2022 CREATININE 0.47 11/16/2022 CREATININE 0.46 11/15/2022 Lab Results Component Value Date TSH 0.513 08/19/2022 T3 3.73 04/27/2021 No results found for: [id number] Lab Results Component Value Date CREATININE 0.52 11/17/2022 BUN 10 11/17/2022 K 4.0 11/17/2022 CL 105 11/17/2022 CO2 23 11/17/2022 CO2 23 11/16/2022 CO2 23 11/15/2022 Lab Results Component Value Date ALT 5 11/17/2022 AST 8 11/17/2022 ALKPHOS 69 11/17/2022 Lab Results Component Value Date HGBA1C 9.9 (A) 07/13/2020 HGBA1C 6.2 12/12/2019 HGBA1C 8.0 (A) 10/20/2019 REVIEW OF SYSTEMS: Head and Neck: Negative for any dizziness and headaches. Cardiovascular and Respiratory System: Denies any chest pain, shortness of breath, and coughing. Abdominal and System: Denies any abdominal pain, nausea, vomiting, vaginal bleeding, and vaginal discharge PHYSICAL EXAMINATION: BP 116/71 Pulse 105 Ht 162.6 cm (5' 4 ) Wt 95.7 kg (211 lb) LMP 06/03/2022 BMI 36.22 kg/m and heart rate present-156. Gravid abdomen, Respirations not labored. 1. Pre-existing type 1 diabetes mellitus during in third trimester 2. History of stillbirth in patient in third trimester, antepartum 3. History of delivery affecting 4. Mild intermittent asthma without complication 5. 33 weeks gestation of Medical decision-making: Reviewed Dexcom output and it is concerning as it reveals hypoglycemia in addition to hypoglycemia episodes. She reports that over the past few days she had been having nausea and vomiting. Reviewed with her the concern about nighttime hypoglycemia. At this time recommend inpatient management she was in agreement. Patient was sent to OB EC for further assessment and for hospitalization for blood sugar optimization. [facility] contacted. Thank you for taking my call. She understand that she might need to be hospitalized until delivery. Delivery is recommended at 36 weeks or earlier as clinically indicated. Please see prior consultation note and discussion by Dr. Galicia. Type 1 DM. SUMMARY/RECOMMENDATION: The following is a summary of our recommendations: 1. Initial blood work: A1c CMP Vitamin D Urine P/C ratio LDH TSH EKG if more than 10 years and no EKG last year 2. Medication: AM/BR Lunch Dinner PM Lantus 27 20 LOG 22 26 32 Other medications as above 3. Referrals: 3. testing: NST/DVP weekly at 32 weeks (28 weeks if co-morbidities) NST twice weekly and DVP weekly at 36 weeks (32 weeks if co-morbidities) growth ultrasounds every 4 weeks after 28 weeks growth scan one week before planned delivery if attempt for a vaginal delviery 4. Delivery timing: Consider planned delivery at 36 weeks or before if indicated Use 1/2 dose of insulin the night before her planned delivery. 5. Mode of delivery repeat delivery 6. Glucose control in labor: Consider using Epic order set OB DIABETES MANAGEMENT during her labor. If on insulin pump consider basal insulin 0.3 Units/hour 7. Post : May use pre- regimen and ISS while hospitalized. If unknown may use 1/3 dose last regimen and ISS while hospitalized. 8. Follow-up appointment: In 1 weeks to Maternal- Medicine if discharge from the hospital prior to delivery I asked her to keep sending values to us weekly by e-mail to: or by fax to: [phone] [facility], the CDC, and other organizations representing maternal and public health professionals recommend that , , and lactating people and those considering receive the COVID-19 vaccination. Vaccination is the best method to reduce maternal and complications of SARS-CoV-2 infection. This document was created with DuraFizz technology. Though I make every effort to review the dictation as it is transcribed, on occasion the spoken word can be misinterpreted by the technology leading to inappropriate words, phrases, or sentences. This note is addressed to the requesting provider as a consultation for clinical guidance. Specific medical abbreviations are occasionally used and those are generally approved by the [place]?Board of?Obstetrics and?Gynecology?as well as?Feliz mccualey abbreviations. The above plan of care was based solely on the diagnoses for which a consultation was requested. ?More frequent testing may be indicated based on her other medical/obstetrical conditions. The management of other or medical conditions is beyond the scope of requested consultation and will continue to be followed by the primary machine plug shaper or primary care provider. Thank you for allowing me to participate in her care. Please contact me if you have any concerns. documented in this encounter [facility] 02-01-2022 Note [facility] Medical Records Patient: SAVI NGUYEN [address] : 2000 [place], [place] [address] Location: ICU [phone] Unit #: [id number] Discharge Summary Tee Buck PA-C Patient Information [...] Reconciliation: New amoxicilli (more content not included)... [facility] 01-31-2022 Note [facility] Medical Records Patient: SAVI NGUYEN. : 2000 [place], [place] [address] Location: ICU [phone] Unit #: [id number] History and Physical Joe Ulloa CNP Date [...] at 150 ml/h (more content not included)... [facility] Evaluation note Diagnosis Onset Date Dental infection acute Diabetes type I acute Diabetic ketoacidosis acute [facility] Work Phone: Evaluation note* Diagnosis Onset Date Resolution Status Dental infection acute Diabetes type I acute Diabetic ketoacidosis resolv ed [facility] Work Phone: Evaluation note* Diagnosis Postop check Follow-up examination, following unspecified surgery 6 weeks follow-up S/P section Other postprocedural status documented in this encounter [facility] HealthcareEvaluation note* Diagnosis Type 1 diabetes mellitus during in third trimester- Primary Type 1 diabetes mellitus with hyperglycemia ([facility]) Type 1 diabetes mellitus with hypoglycemia and without coma ([facility]) [facility] Diagnosis Pre-existing type 1 diabetes mellitus during in third trimester- Primary History of stillbirth in patient in third trimester, antepartum [facility]* Diagnosis Pre-existing type 1 diabetes mellitus during in third trimester- Primary History of stillbirth in patient in third trimester, antepartum History of delivery affecting Mild intermittent asthma without complication 33 weeks gestation of documented in this encounter [facility]* Diagnosis care and examination- Primary [facility] Diagnosis Type 1 diabetes mellitus with hyperglycemia (CMS-HCC)- Primary [facility]* Diagnosis Type 1 diabetes mellitus with hyperglycemia (CMS-HCC)- Primary [facility] Diagnosis Type 1 diabetes mellitus with hyperglycemia (CMS-HCC)- Primary [facility]* Diagnosis Type 1 diabetes mellitus with hyperglycemia (CMS-HCC)- Primary [facility] Diagnosis Type 1 diabetes mellitus with hyperglycemia (CMS-HCC) [facility]* Diagnosis Type 1 diabetes mellitus during in third trimester [facility] Diagnosis Type 1 diabetes mellitus during in third trimester Type 1 diabetes mellitus with hyperglycemia (CMS-HCC) [facility] Additional Instructions Activity: No restrictions Diet: No restrictions Driving instructions: No driving restrictions Bathing Instructions: No restrictions Follow Up Labs/X Rays/Procedures after discharge: [facility] Work Phone: InstructionsNot on filedocumented in this encounter [facility] filedocumented in this [facility] filedocumented in this encounter [facility] filedocumented in this encounter [facility] on filedocumented in this encounter [facility] on filedocumented in this encounter [facility] on filedocumented in this encounter [facility] on filedocumented in this encounter [facility] filedocumented in this encounter [facility] on filedocumented in this encounter [facility] for referral (narrative)* Consultation (Routine) - Pending Review Specialty Diagnoses / Procedures Referred By Yefri gibbs Referred To Contact Endocrinology, Diabetes & Metabolism Diagnoses Type 1 diabetes mellitus with hyperglycemia ([facility]) Feli Nguyen, DIGITAL STRATEGIST SENIOR MANAGER-DIRECTOR PERSONAL [address] [place] [address] [facility] [address] [place] [address] Referral ID Status Reason Start Date Expiration Date Visits Requested Visits Authorized [id number] Pending Review Specialty Services Required 04/05/2023 04/04/2024 1 1 Electronically signed by Feli Nguyen DIGITAL STRATEGIST SENIOR MANAGER-DIRECTOR PERSONAL at 04/05/2023 3:19 PM [facility] [id number] Summary Purpose Family History No Family History Records Found Relationship Condition Age at Onset Recorded Date/T john Not Specified No pertinent family history Unknown Advance Directives No Advanced Directives Records Found Advance Directive Response Recorded Date/ Time [facility] DNR Comfort Care No Directive, No SS Referral February 01, 2022 1:55pm [facility] DNR Comfort Ca re Arrest No Directive, No SS Referral February 01, 2022 1:55p m Living Will Unknown January 31, 2 022 4:13am Durable Power of Child Care [facility] No Directive, No SS Referral February 01, 2022 1:55p m Date Activated Date Inactivated Comments 02/16/2023 10:51 AM 02/20/2023 4:12 PM Date Activated Date Inactivated Comments 02/01/2023 6:07 PM 02/10/2023 5:36 PM Date Activated Date Inactivated Comments 11/14/2022 7:45 PM 11/17/2022 6:44 PM Date Activated Date Inactivated Comments 02/07/2021 11:30 PM 02/12/2021 1:31 PM Date Activated Date Inactivated Comments 04/17/2020 8:36 AM 04/20/2020 6:22 PM Latest [...] Referred By Yefri gibbs Referred To Contact Maternal and Medicine Diagnoses Pre-existing type 1 diabetes mellitus during in third trimester History of stillbirth in patient in third trimester, antepartum Procedures [facility] with or without consult Eliane Slaughter MD [address] [place] [address] [facility] [address] [place] [address] Referral ID Status Reason Start Date Expiration Date V isits Requested Visits Authorized [id number] Pending Review 02/01/2023 02/01/2024 1 1 Additional Source Comments INFORMATION SOURCE (unrecogn ized section and content) DATE CREATED AUTHOR 06/28/2021 [facility] DATE CREATED AUTHOR AUTHOR'S ORGANIZ ATION 02/01/2022 [facility] DATE CREATED AUTHOR AUTHOR'S ORGANIZ ATION 03/20/2023 [facility] EPIC DATE CREATED AUTHOR AUTHOR'S ORGANIZ ATION 08/03/2023 [facility] DATE CREATED AUTHOR AUTHOR'S ORGANIZ ATION 01/29/2024 [facility] DATE CREATED AUTHOR AUTHOR'S ORGANIZ ATION 08/29/2024 [facility] Goals (unrecognized section and content) Goals may be documented in a n alternate sectionGoals may be documented in an alternate section Reason for Visit (unrecogniz ed section and content) Reason Comments Post-op Visit 6 week post v isit. Delivered c/s 02/16/2023 @ [facility] Reason Comments Follow-up diabetes Reason Comments Type 1 DM Hx IUFD Hx C/s Reason Comments Care Reason Onset Date Comments Med Refill 04/05/2023 Reason Onset Date Comments Med Refill 03/20/2023 Reason Comments Pump Training 1 Specialty Diagnoses / Procedures Referred By Contac t Referred To Contact Endocrinology, Diabetes & Metabolism Diagnoses Type 1 diabetes mellitus with hyperglycemia ([facility]) Feli Nguyen, DIGITAL STRATEGIST SENIOR MANAGER-DIRECTOR PERSONAL [address] [place] [address] [facility] [address] [place] [address] Referral ID Status Reason Start Date Expiration Date Visits Requested Visits Authorized [id number] Pending Review Specialty Services Required 04/05/2023 04/04/2024 1 1 Reason Comments Pump Training 2 Reason Comments Pump Training final Reason Onset Date Comments back up insulin 09/14/2023 Reason Onset Date Comments Med Refill 04/14/2024 Care Teams (unrecognized sec tion and content) National Account Representative Relationship Specialty Start Date End Date Services, Pending Sale [place] [facility] [address] [place] PCP - General Family Medicine 03/03/18 National Account Representative Relationship Specialty Start Date End Date Services, Pending Sale To [facility] [address] [place] PCP - General Family Medicine 03/03/18 National Account Representative Relationship Specialty Start Date End Date Services, Pending [place] [facility] [address] [place] PCP - General Family Medicine 03/03/18 National Account Representative Relationship Specialty Start Date End Date Services, Pending Sale To [facility] [address] [place] PCP - General Family Medicine 03/03/18 National Account Representative Relationship Specialty Start Date End Date Services, Pending Sale To [facility] [address] [place] PCP - General Family Medicine 03/03/18 National Account Representative Relationship Specialty Start Date End Date Services, Pending Sale To [facility] [address] [place] PCP - General Family Medicine 03/03/18 National Account Representative Relationship Specialty Start Date End Date Services, Pending Sale To [facility] [address] [place] PCP - General Family Medicine 03/03/18 National Account Representative Relationship Specialty Start Date End Date Services, Pending Sale To [facility] [address] [place] PCP - General Family Medicine 03/03/18 National Account Representative Relationship Specialty Start Date End Date Services, Pending Sale To [facility] [address] [place], [place] PCP General Family Medicine 03/03/18 National Account Representative Relationship Specialty Start Date End Date Services, Pending Sale To [facility] [address] [place], [place] PCP General Family Medicine 03/03/18 National Account Representative Relationship Specialty Start Date End Date Services, Pending Sale To [facility] [address] [place], [place] PCP General Family Medicine 03/03/18 National Account Representative Relationship Specialty Start Date End Date Services, Pending Sale To [facility] [address] [place], [place] PCP General Family [facility] 03/03/18 National Account Representative Relationship Specialty Start Date End Date Services, Pending Sale To [facility] [address] [place], [place] PCP General Family Medicine 03/03/18 National Account Representative Relationship Specialty Start Date End Date Services, Pending Sale To [facility] [address] [place], [place] PCP General Family Medicine 03/03/18 FOR RECORDS PERTAINING [...] BE BASED ON THE PRIMARY CLINICAL RECORDS. [facility] [employer] [facility]. provides no warranty or guarantee of the accuracy or completeness of information in this document.
--- NOTE | 2024-09-02 19:57 | ED.GENADUL1 ---
HPI HPI - General Adult General Chief complaint: Nausea/Vomiting/Diarrhea Stated complaint: RIGHT SIDE PAIN AND VOMITING ALL DAY Time Seen by Provider: 09/02/24 19:38 Source: patient Mode of arrival: walk-in Limitations: no limitations History of Present Illness HPI narrative: This 24-year-old female with a history of type 1 diabetes presents for evaluation of nausea vomiting and right upper quadrant abdominal pain. The patient states that she was sick last week and was seen at [facility]. She states they gave her half a bag of fluids and some insulin. They told her that she was dehydrated but not in DKA. She has been feeling better until earlier today. She states she woke up this morning around 5 AM and has been vomiting since that time. She states her glucose has been running between 300 and high on her glucometer. She also developed right upper quadrant abdominal pain. She has not had a fever. She denies any dysuria or hematuria. She denies any flank pain. She has not had any bloody emesis. She doubts the possibility of but states she is not doing anything to prevent herself from getting . She also had some vaginal itching recently and requested that STD testing be performed. She is not having any lower abdominal pain vaginal bleeding or discharge at this time. She has not had a fever. She has no lower extremity pain or swelling. She admits to smoking cigarettes and marijuana. Related Data Home Medications ?Medication ?Instructions ?Recorded ?Confirmed blood-glucose sensor (Dexcom G7 11/04/23 09/02/24 Sensor device) Allergies Allergy/AdvReac Type Severity Reaction Status Date / Time No Known Drug Allergies Allergy Verified 09/02/24 19:39 Opioid HPI Opioid Management Most Recent Opioid Data: Last Pain Scale 0 11/05/23, 22:00 Last ORT Total Score 0 11/04/23, 12:58 Last ORT Risk Category Low Risk 11/04/23, 12:58 Review of Systems ROS Status of ROS 10 or more systems reviewed and unremarkable except as noted in history and below [facility] Medical History (Updated 09/02/24 @ 22:09 by Deepali Friedman MD) Type 1 diabetes ?E10.9 - Type 1 diabetes mellitus without complications (ICD-10) H/O urinary tract infection ?Z87.440 - Personal history of urinary (tract) infections (ICD-10) Social History (Updated 11/04/23 @ 13:34 by Shaikh Crystal MD) Within the past year, how often did you have a drink containing alcohol: never Within the past year, how many standard drinks containing alcohol did you have on a typical day: 1 or 2 Within the past year, how often did you have six or more drinks on one occasion: never Total score: 0 Score interpretation: A score less than 3 is consistent with normal alcohol consumption. Smoking status: Current every day smoker Non-prescribed substance use: denies use Little interest or pleasure in doing things: not at all Feeling down, depressed, or hopeless: not at all Exam Narrative Exam Narrative: Vital signs and Nursing Notes reviewed: Patient is afebrile with a normal pulse, normal blood pressure, she is not hypoxic with pulse ox of 97% on room air General: Awake, alert, oriented, nontoxic female, she is spitting clear phlegm into an emesis bag, no respiratory distress HEENT: Normocephalic atraumatic, mucous membranes are moist and pink, eyes are clear, normal conjunctiva, vision is grossly intact, posterior pharynx is normal in appearance. Neck: Supple, no meningeal signs, no anterior or posterior cervical lymphadenopathy Chest: Lungs are clear to auscultation with good air entry, there is no wheezing rhonchi or rales appreciated no accessory muscle use, patient is speaking in complete sentences-no chest wall tenderness to palpation CVS: Regular rate and rhythm S1-S2, no murmurs rubs or gallops, pulses are brisk and equal bilaterally ABD: Soft, nondistended, mild epigastric and right upper quadrant tenderness, no rebound guarding or rigidity, no lower abdominal tenderness Extremities: Moving all extremities, no lower extremity tenderness or swelling noted, negative Homans' sign, pulses are brisk and equal bilaterally Skin: Normal in appearance without rash,pallor, petechiae or purpura Neuro: No focal deficits Constitutional Vital Signs, click to edit/add: Last Vital Signs Temp 98.4 F 09/02/24 19:47 Pulse 68 09/02/24 21:15 Resp 18 09/02/24 21:15 BP 120/65 09/02/24 21:15 Pulse Ox 99 09/02/24 21:15 O2 Del Method Room Air 09/02/24 19:47 Course Vital Signs Vital signs: Vital Signs Temperature 98.4 F 09/02/24 19:47 Pulse Rate 83 09/02/24 19:47 Respiratory Rate 20 09/02/24 19:47 Blood Pressure 127/79 09/02/24 19:47 Pulse Oximetry 97 09/02/24 19:47 Oxygen Delivery Method Room Air 09/02/24 19:47 Temperature 98.4 F 09/02/24 19:47 Pulse Rate 68 09/02/24 21:15 Respiratory Rate 18 09/02/24 21:15 Blood Pressure 120/65 09/02/24 21:15 Pulse Oximetry 99 09/02/24 21:15 Oxygen Delivery Method Room Air 09/02/24 19:47 Medical Decision Making MDM Narrative Medical decision making narrative: This 74-year-old female with a history of type 1 diabetes presents for evaluation of nausea vomiting and right upper quadrant abdominal pain. She was seen at [place] emergency department last week for similar symptoms. She states they gave her half a liter of fluid and some insulin and told her she was not in DKA. She states she woke up this morning with nausea and vomiting. She is vomiting small amounts of clear phlegm in the emergency department. Vital signs are stable. Abdomen is soft with some mild epigastric and right upper quadrant tenderness. She states her sugars have been running between 300 and high on her glucometer. Upon arrival an IV was placed and she was given IV fluids, Zofran, Pepcid and Toradol. On reevaluation she is still having some dry heaves and was with IV Reglan and Benadryl. Her glucose was 386 and she was given 8 units of IV insulin. A workup for DKA was ordered. Her pH is normal at 7.398 with a mildly low CO2 at 32.5. Her anion gap is elevated at 20. She has a stable white count of 10.9 and hemoglobin of 13.6. Acetone is small. Lactic acid was normal at 1.4. Troponin is normal. BUN and creatinine are normal at 11 and 0.88. Liver function test are normal. Repeat Accu-Chek after the IV fluids and insulin was ordered and is 197. Urine is negative for infection but positive for ketones and glucose. She requested STD testing to be performed which is pending at this time. Patient was reevaluated and is feeling better. I offered her admission and explained to her that at this time she was not acutely ill with diabetic DKA but she could easily slip into DKA if she is not better controlled. She declines admission at this time stating she is going to ride it out at home . She will be discharged home with prescription for Zofran and Pepcid. Lab Data Labs: Lab Results 09/02/24 Range/Units 20:05 WBC 10.9 (4.0-11.0) 10^3/uL RBC 4.88 (4.20-5.40) 10^6/uL Hgb 13.6 (12.0-16.0) g/dL Hct 37.1 (36.0-48.0) % MCV 76.0 L (81.0-99.0) fL MCH 27.9 (26.7-34.0) pg MCHC 36.7 H (29.9-35.2) g/dL RDW 13.1 (11.0-15.0) % Plt Count 423 (150-450) 10^3/uL MPV 10.3 (9.5-13.5) fL Neut % (Auto) 77.2 H (43.0-75.0) % Lymph % (Auto) 15.5 L (20.5-60.0) % [place] % (Auto) 6.0 (1.7-12.0) % Eos % (Auto) 0.2 L (0.9-7.0) % Baso % (Auto) 0.5 (0.2-2.0) % Neut # (Auto) 8.4 H (1.4-6.5) 10^3/uL Lymph # (Auto) 1.7 (1.2-3.8) 10^3/uL [place] # (Auto) 0.7 (0.3-0.8) 10^3/uL Eos # (Auto) 0.0 (0.0-0.7) 10^3/uL Baso # (Auto) 0.1 (0.0-0.1) 10^3/uL Abs Immat Gran (auto) 0.07 H (0.00-0.03) 10^3/uL Imm/Tot Granulo (auto) 0.6 H (0.0-0.5) % VBG pH 7.398 (7.330-7.430) VBG pCO2 32.5 L (40.0-52.0) mmHg Sodium 138 (136-145) mmol/L Potassium 3.7 (3.5-5.1) mmol/L Chloride 99 (98-107) mmol/L Carbon Dioxide 22.3 (21.0-32.0) mmol/L Anion Gap 20.4 BUN 11.0 (7.0-18.0) mg/dL Creatinine 0.88 (0.55-1.02) mg/dL Est GFR ( Amer) >60 (>=60 mL/min/1.73m^2) Est GFR (Non-Af Amer) >60 (>=60 mL/min/1.73m^2) BUN/Creatinine Ratio 12.5 Glucose 386 H (74-106) mg/dL Lactate 1.4 (0.4-2.0) mmol/L Calcium 9.6 (8.5-10.1) mg/dL Total Bilirubin 0.3 (0.2-1.0) mg/dL AST 10 L (15-37) U/L ALT 15 (14-59) U/L Alkaline Phosphatase 118 H (46-116) U/L Troponin I High Sens <4.0 L (4.0-51.3) pg/mL Total Protein 8.8 H (6.4-8.2) g/dL Albumin 3.5 (3.4-5.0) g/dL Globulin 5.3 g/dL Albumin/Globulin Ratio 0.7 Urine Color Lt. yellow (YELLOW) Urine Clarity Clear (CLEAR) Urine pH 6.0 (5.0-9.0) Ur Specific [place] 1.015 (1.005-1.025) Urine Protein Negative (NEG/TRACE) mg/dL Urine Glucose (UA) >=1000 A (NEGATIVE) mg/dL Urine Ketones >=80 A (NEGATIVE) mg/dL Urine Occult Blood Negative (NEGATIVE) Urine Nitrite Negative (NEGATIVE) Urine Bilirubin Moderate A (NEGATIVE) Urine Urobilinogen 0.2 (0.2-1.0) EU/dL Ur Leukocyte Esterase Negative (NEGATIVE) Urine RBC 0-2 (0-2) #/HPF Urine WBC 0-2 A (NONE SEEN) #/HPF Ur Squamous Epith Cells Few A (NONE/RARE) #/LPF Urine Crystals None seen (None Seen) #/HPF Urine Bacteria Trace A (NONE SEEN) #/HPF Urine Casts None seen (NONE SEEN) #/LPF Urine Mucus None seen (NONE SEEN) Urine HCG, Qual Negative (NEGATIVE) Acetone, Qual Small A (NEGATIVE) Discharge Plan Discharge Chief Complaint: Nausea/Vomiting/Diarrhea Clinical Impression: Acute hyperglycemia, Nausea and vomiting due to hyperglycemia Patient Disposition: Home, Self-Care Time of Disposition Decision: 22:09 Condition: Fair Prescriptions / Home Meds: No Action (DME) Dexcom G7 Sensor Device MISCELLANEOUS Print Language: Vietnamese Instructions: Acute Nausea and Vomiting (ED), Diabetic Hyperglycemia (ED) Referrals: Physician,Non-Staff, MD [Primary Care Provider] - 1 week
[2024-09-02 20:12] LABS: PCO2 VBG 32.5 mmHg (40.0-52.0); pH VBG 7.398 (7.330-7.430)
[2024-09-02 20:14] LABS: Hematocrit 37.1 % (36.0-48.0); Hemoglobin 13.6 g/dL (12.0-16.0); Immature Granulocytes Abs Auto 0.07 10^3/uL (0.00-0.03); Immature Granulocytes Pct Auto 0.6 % (0.0-0.5); Lymphocytes Absolute Auto 1.7 10^3/uL (1.2-3.8); Mean Corpuscular HGB Conc 36.7 g/dL (29.9-35.2); Mean Corpuscular Hemoglobin 27.9 pg (26.7-34.0); Mean Corpuscular Volume 76.0 fL (81.0-99.0); Platelet Count 423 10^3/uL (150-450); Red Blood Count 4.88 10^6/uL (4.20-5.40); White Blood Count 10.9 10^3/uL (4.0-11.0)
[2024-09-02] MEDS: 0.9 % SODIUM CHLORIDE 1,000 ML 1000 ML IV ×2 (20:14→21:05)
[2024-09-02] MEDS: FAMOTIDINE/PF 20 MG/2 ML VIAL IV (20:14)
[2024-09-02 20:35] LABS: Glucose Urine UA >=1000 mg/dL (NEGATIVE)
[2024-09-02 20:36] LABS: Lactate/Lactic Acid 1.4 mmol/L (0.4-2.0)
[2024-09-02 20:37] LABS: HCG Qualitative Urine* NEGATIVE (NEGATIVE)
[2024-09-02 20:45] LABS: Alanine Aminotransferase 15 U/L (14-59); Albumin Globulin Ratio 0.7; Albumin Level 3.5 g/dL (3.4-5.0); Alkaline Phosphatase 118 U/L (46-116); Anion Gap 20.4; Aspartate Amino Transferase 10 U/L (15-37); Blood Urea Nitrogen 11.0 mg/dL (7.0-18.0); Calcium 9.6 mg/dL (8.5-10.1); Carbon Dioxide 22.3 mmol/L (21.0-32.0); Chloride 99 mmol/L (98-107); Estimated GFR (African America >60 (>=60 mL/min/1.73m^2); Estimated GFR (Non-African Ame >60 (>=60 mL/min/1.73m^2); Globulin 5.3 g/dL; Glucose 386 mg/dL (74-106); Potassium 3.7 mmol/L (3.5-5.1); Sodium 138 mmol/L (136-145); Total Protein 8.8 g/dL (6.4-8.2)
[2024-09-02 20:46] LABS: Cast Seen? NONE SEEN #/LPF (NONE SEEN); Crystals Seen? None Seen #/HPF (None Seen)
[2024-09-02] MEDS: KETOROLAC TROMETHAMINE 30 MG/ML VIAL IVP (20:52)
[2024-09-02 20:54] VITALS: PULSE 86; O2SAT 99
[2024-09-02] MEDS: DIPHENHYDRAMINE HCL 50 MG/ML VIAL 12.5 MG IVP (21:06)
[2024-09-02] MEDS: INSULIN REGULAR, HUMAN (100 UNIT/ML) 10 ML MDV 8 UNIT IV (21:06)
[2024-09-02] MEDS: METOCLOPRAMIDE HCL 10 MG/2 ML VIAL IVP (21:06)
[2024-09-02 21:15] VITALS: BP 120/65; PULSE 68; O2SAT 99
[2024-09-02 22:23] VITALS: BP 130/83; PULSE 74; O2SAT 99
[2024-09-05 05:07] LABS: Neisseria gonorrhoeae, NAA Negative (Negative)
== END 2024-09-02 22:24 | disposition home or self-care (01) ==
PROVIDERS: Emergency Provider Emergency Medicine
DX: E10.65 Type 1 diabetes mellitus with hyperglycemia (principal); R11.2 Nausea with vomiting, unspecified; R10.11 Right upper quadrant pain
CPT/HCPCS: 36415; 80053; 81001; 82009; 82800; 83605; 84484; 84703; 85025; 86850; 86900; 86901; 87491; 87591; 96361; 96374; 96375; 99285; J1200; J1817; J1885; J2405; J2765; J3490